=== PATIENT | female | born 1940 | race Caucasian/White ===

== ENCOUNTER 2021-02-17 11:44 | Emergency (ER) | payer MEDICARE, SELFPAY ==
--- NOTE | ~2021-02-17 | XR_ITS ---
EXAMINATION: XR CHEST CLINICAL INFORMATION: Shortness of breath. COMPARISON: Chest radiograph dated 03/20/2020 TECHNIQUE: Frontal view of the chest was obtained. FINDINGS: Minimal left basilar atelectasis versus early infiltrates. No pleural effusion or pneumothorax. Stable cardiomediastinal silhouette. Dextrocurvature of the thoracic spine is redemonstrated. XR/XR chest 1V IMPRESSION: Minimal left basilar atelectasis versus early infiltrates, new when compared to the prior examination.
--- NOTE | 2021-02-17 11:55 | ECG_ITS ---
Test Reason : CHEST PAIN Blood Pressure : / mmHG Vent. Rate : 099 BPM Atrial Rate : 099 BPM P-R Int : 162 ms QRS Dur : 082 ms QT Int : 320 ms P-R-T Axes : 072 081 056 degrees QTc Int : 410 ms Normal sinus rhythm Normal ECG When compared with ECG of 11-AUG-2019 12:05, No significant change was found Referred By: Fortunato Ramos Electronically Signed By:RAFAT VÁSQUEZ
[2021-02-17 12:02] VITALS: BP 158/67; PULSE 104; RESP 20; TEMP 36.9; O2SAT 96; BMI 28.7
--- NOTE | 2021-02-17 12:25 | ED.SOB ---
HPI - SOB/Dyspnea General Chief Complaint: Dyspnea Stated Complaint: chest pain sob Time Seen by Provider: 02/17/21 12:25 Source: patient and family Mode of arrival: ambulatory Limitations: no limitations History of Present Illness HPI Narrative: Patient ex-smoker with history of COPD anxiety on home oxygen p.r.n. basis been complaining of increased shortness of breath with cough with mucopurulent phlegm often for last few days, no fever no chills also patient noticed leg edema for last few weeks patient used to be on furosemide as needed in the past but not anymore Related Data Previous Rx's Medication Instructions Recorded albuterol sulfate 90 mcg/actuation 2 puff INHALATION Q4-6H PRN #8.5 g 02/17/21 aerosol inhaler (ProAir HFA) codeine 10 mg-guaifenesin 100 mg/5 10 ml PO Q6H PRN #237 ml 02/17/21 mL oral liquid doxycycline hyclate 100 mg tablet 100 mg PO BID #20 tab 02/17/21 furosemide 20 mg tablet (Lasix) 20 mg PO QAM #30 tab 02/17/21 prednisone 20 mg tablet 40 mg PO DAILY #10 tab 02/17/21 Allergies Allergy/AdvReac Type Severity Reaction Status Date / Time No Known Allergies Allergy Verified 02/17/21 12:44 Review of Systems Review of Systems: Constitutional : No Weight loss, No Fever, No Chills ENT/Mouth : No sore throat, No Rhinorrhea Eyes: No Eye Pain, No Swelling Cardiovascular : No Chest Pain, no palpitations Respiratory :+ Cough, + Sputum, + shortness of breath Gastrointestinal : no Nausea, No Vomiting, No Diarrhea, No abdominal Pain, no black stools Genitourinary : No Dysuria, No Urinary Frequency Musculoskeletal : No joint pain, No Myalgias, No Joint Swelling Skin : No Skin Lesions, No rash Neuro : No Weakness, No Numbness, No Dizziness, No Headache Psych : No Anxiety/Panic, No Depression Heme/Lymph: No Bruising, No Lymphadenopathy Endocrine : No Polyuria, No Polydipsia All other systems reviewed and are negative [facility] Social History Social History Advance Directives: No Advance Directives Information Provided: No Physical Exam Vital Signs: Vital Signs: Last Vital Signs Temp 98.4 F 02/17/21 12:02 Pulse 99 02/17/21 14:59 Resp 36 H 02/17/21 14:59 BP 135/54 L 02/17/21 14:59 Pulse Ox 92 02/17/21 14:59 Oxygen Flow Rate 2 02/17/21 12:02 Body Mass Index 28.7 Appearance: Alert. Oriented X3. No acute distress. Eyes: PERRLA, No Nystagmus ENT: Pharynx normal. Oral Mucosa moist Neck: Normal inspection. Neck supple. CVS: Normal heart rate and rhythm. Pulses normal. Respiratory: No respiratory distress. Equal air entry bilateral, prolonged expiration, bilateral fine crackles at the bases Abdomen: Soft and nontender. Bowel sounds are present, no mass palpable, no CVA tenderness Skin: Skin warm and dry. Normal skin color. Normal skin turgor. Extremities: 2+ lower extremity edema. No calf tenderness Neuro: Oriented X 3. No motor deficit. No sensory deficit.No cerebellar signs , cranial nerves II-XII intact MDM - SOB/Dyspnea MDM Narrative Medical decision making narrative: Patient has COPD with increased shortness of breath with leg edema with fine crackles at the base lab workup showed elevated BNP likely diastolic heart failure. Will start patient on low-dose of Lasix advised to follow with PCP Medical Records Attestation: I reviewed the patient's medical records. Lab Data Attestation: I reviewed the patient's lab results. Result diagrams: 02/17/21 13:18 02/17/21 13:18 Labs: Lab Results 02/17/21 02/17/21 02/17/21 Range/Units 13:18 13:18 13:18 WBC 9.9 (4.8-10.8) X10*3/uL RBC 3.93 L (4.20-5.50) X10*6/uL Hgb 11.9 L (12.0-16.0) g/dl Hct 37.6 (37-47) % MCV 95.7 (80-98) fL MCH 30.3 (27.0-33.0) pg MCHC 31.6 (31.0-35.0) g/dl RDW 13.7 (11.0-16.0) % Plt Count 307 (160-400) X10*3/uL MPV 9.9 (9.4-12.3) fL Immature Gran % (Auto) 0.4 (0.0-0.4) % Neut % (Auto) 79.1 H (45-73) % Lymph % (Auto) 9.4 L (20-40) % [place] % (Auto) 9.8 (2-11) % Eos % (Auto) 0.8 (0-4) % Baso % (Auto) 0.5 (0-2) % Lymph # (Auto) 0.9 L (1.2-4.9) X10*3/uL [place] # (Auto) 1.0 (0.1-1.2) X10*3/uL Eos # (Auto) 0.1 (0.0-0.4) X10*3/uL Baso # (Auto) 0.1 (0.0-0.2) X10*3/uL Abs Immat Gran (auto) 0.04 H (0.00-0.03) X10*3/uL Absolute Neuts (auto) 7.9 (2.0-8.3) X10*3/uL Absolute Nucleated RBC 0.000 (0.0-0.012) X10*3/uL Nucleated RBC % (auto) 0.0 (0.0-0.2) /100WBC Sodium 137 (135-145) mmol/L Potassium 3.9 (3.3-5.1) mmol/L Chloride 100 (96-108) mmol/L Carbon Dioxide 31 H (22-29) mmol/L Anion Gap 10 L (12-20) BUN 8 L (9-16) mg/dL Creatinine 0.59 (0.5-1.4) mg/dL Estim Creat Clear Calc 75.4 Estimated GFR > 60 Random Glucose 129 H (60-115) mg/dL Calcium 8.4 (8.4-10.2) mg/dL Total Bilirubin 0.5 (0.0-1.0) mg/dL Direct Bilirubin 0.2 (0.0-0.5) mg/dL AST 17 (5-31) U/L ALT 17 (0-31) U/L Alkaline Phosphatase 74 (39-117) U/L Troponin I High Sens 15.0 (<3.5-17.0) ng/L B-Natriuretic Peptide 236 H (<100) pg/mL Total Protein 6.9 (6.5-8.0) g/dL Albumin 3.6 (3.5-5.0) g/dL ECG Data Attestation: I personally reviewed and interpreted this ECG as follows: Interpretation: Normal sinus rhythm heart rate 99 beats per minute normal intervals normal axis no acute ST wave changes impression normal EKG Discharge Plan Discharge Clinical Impression: Acute exacerbation of chronic obstructive airways disease Congestive heart failure Qualifiers: Heart failure type: diastolic Heart failure chronicity: unspecified Qualified Code(s): I50.30 - Unspecified diastolic (congestive) heart failure Patient Disposition: Home, Self-Care Instructions: Heart Failure (ED), COPD (Chronic Obstructive Pulmonary Disease) (ED) Additional Instructions: Continue your inhaler Take water pill / Lasix as prescribed Take antibiotics as prescribed Follow with PCP next week for further workup Prescriptions: New furosemide [Lasix] 20 mg tablet 20 mg PO QAM Qty: 30 RF: 0 prednisone 20 mg tablet 40 mg PO DAILY Qty: 10 RF: 0 codeine-guaifenesin 10-100 mg/5 mL liquid 10 ml PO Q6H PRN (Reason: cough) Qty: 237 RF: 0 doxycycline hyclate 100 mg tablet 100 mg PO BID Qty: 20 RF: 0 albuterol sulfate [ProAir HFA] 90 mcg/actuation HFA aerosol inhaler 2 puff inhalation Q4-6H PRN (Reason: shortness of breath or wheezing) Qty: 8.5 RF: 0
[2021-02-17] MEDS: Albuterol/Iprat 2.5/0.5MG 3 ML AMPUL.NEB INHALE (13:00)
[2021-02-17 13:03] VITALS: PULSE 93; O2SAT 92
[2021-02-17] MEDS: guaiFEN/Codeine SF 200/20/10ML 10 ML LIQUID PO (13:19)
[2021-02-17 13:29] LABS: MANUAL DIFF FLAG NO
[2021-02-17 13:35] LABS: Basophils Absolute Auto 0.1 X10*3/uL (0.0-0.2); Basophils Percent Auto 0.5 % (0-2); Eosinophils Absolute Auto 0.1 X10*3/uL (0.0-0.4); Eosinophils Percent Auto 0.8 % (0-4); Hematocrit 37.6 % (37-47); Hemoglobin 11.9 g/dl (12.0-16.0); Imm Gran Abs Auto 0.04 X10*3/uL (0.00-0.03); Imm Gran Pct Auto 0.4 % (0.0-0.4); Lymphocytes Absolute Auto 0.9 X10*3/uL (1.2-4.9); Lymphocytes Percent Auto 9.4 % (20-40); Mean Corpuscular HGB Conc 31.6 g/dl (31.0-35.0); Mean Corpuscular Hemoglobin 30.3 pg (27.0-33.0); Mean Corpuscular Volume 95.7 fL (80-98); Mean Platelet Volume 9.9 fL (9.4-12.3); Monocytes Percent Auto 9.8 % (2-11); Neutrophils Absolute Auto 7.9 X10*3/uL (2.0-8.3); Neutrophils Percent Auto 79.1 % (45-73); Platelet Count 307 X10*3/uL (160-400); Red Blood Count 3.93 X10*6/uL (4.20-5.50); Red Cell Distribution Width 13.7 % (11.0-16.0); White Blood Count 9.9 X10*3/uL (4.8-10.8)
[2021-02-17 13:57] LABS: Alanine Aminotransferase 17 U/L (0-31); Albumin Level 3.6 g/dL (3.5-5.0); Alkaline Phosphatase 74 U/L (39-117); Anion Gap 10 (12-20); Aspartate Amino Transferase 17 U/L (5-31); Bilirubin Direct 0.2 mg/dL (0.0-0.5); Bilirubin Total 0.5 mg/dL (0.0-1.0); Blood Urea Nitrogen 8 mg/dL (9-16); Calcium 8.4 mg/dL (8.4-10.2); Carbon Dioxide 31 mmol/L (22-29); Chloride 100 mmol/L (96-108); Creatinine Clr Calc Pharmacy 75.4; Estimated Glomerular Filt Rate > 60; Glucose Random 129 mg/dL (60-115); Potassium 3.9 mmol/L (3.3-5.1); Sodium 137 mmol/L (135-145); Total Protein 6.9 g/dL (6.5-8.0)
[2021-02-17 14:02] LABS: B Type Natriuretic Peptide 236 pg/mL (<100)
[2021-02-17] MEDS: Furosemide 20 MG/2 ML VIAL IVPUSH (14:56)
[2021-02-17 14:59] VITALS: BP 135/54; PULSE 99; RESP 36; O2SAT 92
[2021-02-17 15:38] LABS: COVID-19 Test Negative (Negative)
== END 2021-02-17 16:29 | disposition home or self-care (01) ==
PROVIDERS: Emergency Provider Internal Medicine; PCP Internal Medicine
DX: I50.30 Unspecified diastolic (congestive) heart failure (principal); J44.1 Chronic obstructive pulmonary disease with (acute) exacerbation; R06.02 Shortness of breath; R60.0 Localized edema; Z20.822 Contact with and (suspected) exposure to COVID-19
CPT/HCPCS: 36415; 71045; 80048; 80076; 83880; 84484; 85025; 87635; 93005; 94640; 96374; 99284; J1940

== ENCOUNTER → 2021-03-07 14:22 | Outpatient (BNVA) | payer MEDICARE, SELFPAY | PROVIDERS: PCP Internal Medicine; Visit Provider Hospitalist | DX: J43.2 Centrilobular emphysema (principal); J96.11 Chronic respiratory failure with hypoxia; J18.9 Pneumonia, unspecified organism | CPT/HCPCS: 99212 ==

== ENCOUNTER 2021-03-31 12:51 | Outpatient (REF) | payer MEDICARE, MEDICAID, SELFPAY ==
--- NOTE | ~2021-03-31 | XR_ITS ---
EXAMINATION: XR CHEST CLINICAL INFORMATION: Pneumonia COMPARISON: 02/17/2021 TECHNIQUE: 2 views of the chest were obtained. FINDINGS: Thoracolumbar scoliosis is present. Heart size normal. No evidence of CHF. Previously seen patchy density at the left lung base has resolved. Currently, no infiltrates, effusions or lung masses are seen. Old right-sided rib fractures are present. XR/XR chest 2V IMPRESSION: Previously seen left lower lobe infiltrate has resolved.
== END 2021-03-31 12:52 | disposition home or self-care (01) ==
LOC: HO.XRAY 12:51
PROVIDERS: PCP Internal Medicine; Visit Provider Hospitalist
DX: J18.9 Pneumonia, unspecified organism (principal)
CPT/HCPCS: 71046

== ENCOUNTER → 2021-04-22 13:55 | Outpatient (BNVA) | payer MEDICARE, MEDICAID, SELFPAY | PROVIDERS: PCP Internal Medicine; Visit Provider Hospitalist | DX: J18.9 Pneumonia, unspecified organism (principal); J43.2 Centrilobular emphysema; J96.11 Chronic respiratory failure with hypoxia | CPT/HCPCS: 99212 ==

== ENCOUNTER → 2021-09-19 14:18 | Outpatient (BNVA) | payer MEDICARE, MEDICAID, SELFPAY | PROVIDERS: PCP Internal Medicine; Visit Provider Hospitalist | DX: J43.2 Centrilobular emphysema (principal); J96.11 Chronic respiratory failure with hypoxia | CPT/HCPCS: 99212 ==

== ENCOUNTER → 2021-11-27 15:03 | Outpatient (BNVA) | payer MEDICARE, MEDICAID, SELFPAY | PROVIDERS: PCP Internal Medicine; Visit Provider Hospitalist | DX: J43.2 Centrilobular emphysema (principal); J96.11 Chronic respiratory failure with hypoxia | CPT/HCPCS: 94618; 99212 ==

== ENCOUNTER 2022-05-15 14:43 | Outpatient (REF) | payer MEDICARE, MEDICAID, SELFPAY ==
--- NOTE | 2022-05-15 16:32 | PFT_ITS ---
Forced vital capacity 46%, FEV1 34%, FEV1 over FVC ratio 56. VBG19-61 is 20% and MVV is 33. Post bronchodilator therapy, there is no significant change. Total lung capacity is 84%. Residual volume 107%. Diffusion capacity 44%. CONCLUSION: Very severe obstructive airway disorder. No significant response to bronchodilator therapy. Clinical correlation is recommended. MD LEONA Alvarenga/MODL / [id number]
== END 2022-05-15 14:44 | disposition home or self-care (01) ==
LOC: HO.RESP 14:43
PROVIDERS: PCP Internal Medicine; Visit Provider Hospitalist
DX: J43.2 Centrilobular emphysema (principal)
CPT/HCPCS: 94060; 94727; 94729

== ENCOUNTER → 2022-05-19 15:28 | Outpatient (BNVA) | payer MEDICARE, MEDICAID, SELFPAY | PROVIDERS: PCP Internal Medicine; Visit Provider Hospitalist | DX: J43.2 Centrilobular emphysema (principal); J96.11 Chronic respiratory failure with hypoxia | CPT/HCPCS: 99212 ==

== ENCOUNTER 2022-07-06 13:31 | Inpatient (IN) | payer MEDICARE, MEDICAID, SELFPAY ==
--- NOTE | ~2022-07-06 | XR_ITS ---
EXAMINATION: XR CHEST CLINICAL INFORMATION: Coughing congestion COMPARISON: March 31, 2021 and studies dating back to March 20, 2020 TECHNIQUE: 2 views of the chest were obtained. FINDINGS: There are diffuse chronic regions of interstitial disease and reticulation most prominent in the left lower lung. There appears to be some slightly increased density at the left base with the appearance of acute on chronic disease. No definite significant confluent parenchymal disease identified. Heart normal size. No evidence of pulmonary edema. No pneumothorax or pleural effusion. Multiple old healed right rib fractures. XR/XR chest 2V IMPRESSION: Chronic interstitial lung disease with what appears to be some superimposed acute disease at the left base.
--- NOTE | ~2022-07-06 | XR_ITS ---
EXAMINATION: XR CHEST CLINICAL INFORMATION: Follow-up, coughing, shortness of breath COMPARISON: Chest radiograph 07/06/2022 TECHNIQUE: Frontal view of the chest was obtained. FINDINGS: Chronic changes of the lungs are again noted. There is a small amount probable bibasilar atelectasis and possible trace pleural fluid. Cardiomediastinal contours are unchanged. Structures of the chest wall are unchanged. XR/XR chest 1V IMPRESSION: Probable small amount of bibasilar atelectasis and pleural fluid.
--- NOTE | 2022-07-06 15:32 | ED.SOB ---
HPI - SOB/Dyspnea General Chief Complaint: Dyspnea <LINO Hussein - Last Filed: 07/06/22 15:38> Stated Complaint: diff breathing cough <LINO Hussein - Last Filed: 07/06/22 15:38> Time Seen by Provider: 07/06/22 18:16 <LINO Hussein - Last Filed: 07/06/22 15:38> Source: patient <Fortunato Ramos MD - Last Filed: 07/07/22 01:46> Mode of arrival: ambulatory <Fortunato Ramos MD - Last Filed: 07/07/22 01:46> Limitations: no limitations <Fortunato Ramos MD - Last Filed: 07/07/22 01:46> History of Present Illness HPI Narrative: 81-year-old female presenting to the ER with complaints of URI complaints for approximately 1 week worse today. She was seen at [facility] and told that she had Adenovirus and conronvirus and copd. Was sent home with a Z-Jarvis, prednisone and Robitussin with codeine although reports her symptoms are worsening especially the cough. She is currently on 2 L of nasal cannula oxygen chronically at home. Patient has history of COPD with chronic hypoxia on 2 L of oxygen at home with frequent hospitalization for flare up this time patient has been sick for last 1 week diagnosed with adenovirus at [facility] COVID influenza is negative treated with azithromycin prednisone and Hycodan cough syrup patient is still feeling sick coughing a lot with mucopurulent of a duration unable to speak full sentences still having fever saturating 93% on 2 L oxygen patient received 10 mg of albuterol on arrival , magnesium sulfate and Solu-Medrol in triage. 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 No chest pain no leg edema <Fortunato Ramos MD - Last Filed: 07/07/22 01:46> Related Data Home Medications: Home Medications Medication Instructions Recorded Confirmed albuterol sulfate 2.5 mg/3 mL 2.5 mg inhalation Q4-6H PRN 03/07/21 07/06/22 (0.083 %) solution for nebulization Wheezing famotidine 20 mg tablet 20 mg PO DAILY@0800 03/07/21 07/06/22 pravastatin 40 mg tablet 40 mg PO DAILY@199903/07/21 07/06/22 ropinirole 0.25 mg tablet 0.25 mg PO DAILY@199903/07/21 07/06/22 ascorbic acid (vitamin C) 500 mg 500 mg PO DAILY@0809/19/21 07/06/22 capsule calcium citrate 600 mg PO BID@0800,199909/19/21 07/06/22 citalopram 10 mg tablet 20 mg PO DAILY@0809/19/21 07/06/22 docusate sodium 100 mg capsule 100 mg PO DAILY 09/19/21 07/06/22 (Colace) turmeric root extract 500 mg 500 mg PO DAILY@0809/19/21 07/06/22 capsule lisinopril 10 mg tablet 10 mg PO DAILY@79905/19/22 07/06/22 furosemide 20 mg tablet (Lasix) 20 mg PO DAILY@199907/06/22 07/06/22 gabapentin 300 mg capsule 300 mg PO DAILY@199907/06/22 07/06/22 guaifenesin 400 mg tablet 400 mg PO DAILY@79907/06/22 07/06/22 loratadine 10 mg tablet 10 mg PO DAILY@79907/06/22 07/06/22 montelukast 10 mg tablet 10 mg PO DAILY@79907/06/22 07/06/22 Previous Rx's Medication Instructions Recorded albuterol sulfate 90 mcg/actuation 2 puff inhalation Q4-6H PRN 02/17/21 aerosol inhaler (ProAir HFA) shortness of breath or wheezing #8.5 grams fluticasone propionate 50 2 spray intranasal DAILY 30 days 04/22/21 mcg/actuation nasal #15.8 mL spray,suspension fluticasone 250 mcg-salmeterol 50 1 ea inhalation BID 30 days #60 ea 11/27/21 mcg/dose blistr powdr for inhalation (Kirstiextolu Inhub) tiotropium bromide 18 mcg capsule 1 cap inhalation DAILY 30 days #30 11/27/21 with inhalation device (Spiriva inhalations with HandiHaler) <LINO Hussein - Last Filed: 07/06/22 15:38> Allergies/Adverse Reactions: Allergies Allergy/AdvReac Type Severity Reaction Status Date / Time No Known Allergies Allergy Verified 05/19/22 15:38 <LINO Hussein - Last Filed: 07/06/22 15:38> Review of Systems Review of Systems: Yes all other systems are reviewed and are negative <Fortunato Ramos MD - Last Filed: 07/07/22 01:46> [facility] Past Medical History Medical History: Medical History (Updated 07/07/22 @ 01:45 by Fortunato Ramos MD) Chronic respiratory failure COPD (chronic obstructive pulmonary disease) Pneumonia <LINO Hussein - Last Filed: 07/06/22 15:38> Social History Social History: Social History (Updated 03/07/21 @ 14:37 by WENDY Mosqueda) Alcohol intake: never Patient Tobacco Use Status: Never used Tobacco Smoked in Last 30 Days: No Use of substances other than those prescribed or required for medical reasons: No Advance Directives: No Advance Directives Information Provided: No <LINO Hussein - Last Filed: 07/06/22 15:38> Physical Exam Vital Signs: Vital Signs: Last Vital Signs Temp 98.6 F 07/07/22 00:07 Pulse 85 07/07/22 00:07 Resp 26 H 07/07/22 00:07 BP 130/58 L 07/07/22 00:07 Pulse Ox 95 07/07/22 00:07 O2 Del Method 07/07/22 00:07 O2 Flow Rate 3 07/07/22 00:07 Oxygen Flow Rate 2 07/06/22 15:35 BMI result Body Mass Index 29.9 <LINO Hussein - Last Filed: 07/06/22 15:38> Vital Signs: Last Vital Signs Temp 98.6 F 07/07/22 00:07 Pulse 85 07/07/22 00:07 Resp 26 H 07/07/22 00:07 BP 130/58 L 07/07/22 00:07 Pulse Ox 95 07/07/22 00:07 O2 Del Method 07/07/22 00:07 O2 Flow Rate 3 07/07/22 00:07 Oxygen Flow Rate 2 07/06/22 15:35 BMI result Body Mass Index 29.9 <Fortunato Ramos MD - Last Filed: 07/07/22 01:46> Appearance: Alert. Oriented X3. Frequently coughing unable to speak full sentences Eyes: PERRLA, No Nystagmus ENT: Pharynx normal. Oral Mucosa moist Neck: Normal inspection. Neck supple. CVS: Tachycardic irregularly irregular no murmur rub or gallop Respiratory: Moderate respiratory distress. Equal air entry bilateral, bilateral wheezing and conducted sounds Abdomen: Soft and nontender. Bowel sounds are present, no mass palpable, no CVA tenderness Skin: Skin warm and dry. Normal skin color. Normal skin turgor. Extremities: No lower extremity edema. No calf tenderness Neuro: Oriented X 3. No motor deficit. No sensory deficit.No cerebellar signs , cranial nerves II-XII intact <Fortunato Ramos MD - Last Filed: 07/07/22 01:46> Course Course Course Narrative: RME-15:37pm 81-year-old female presenting to the ER with complaints of URI complaints for approximately 1 week worse today. She was seen at [facility] and told that she had Adenovirus and conronvirus and copd. Was sent home with a Z-Jarvis, prednisone and Robitussin with codeine although reports her symptoms are worsening especially the cough. She is currently on 2 L of nasal cannula oxygen chronically at home. Plan: Labs, EKG, chest x-ray, blood cultures and lactic acid ordered at this time. Patient will be sent back to the waiting room to be evaluated in the ED. <LINO Hussein - Last Filed: 07/06/22 15:38> Medications Administered Generic Name Dose Route Start Last Admin Trade Name Freq PRN Reason Stop Dose Admin Azithromycin 500 mg 07/06/22 23:45 07/07/22 00:13 Azithromycin 500 Mg Tablet PO 500 mg BEDTIME SHALA Administration Enoxaparin Sodium 40 mg 07/06/22 23:45 07/07/22 00:13 Enoxaparin Sodium 40 Mg/0.4 Ml Syringe SUBCUT 40 mg BEDTIME SHALA Administration Sodium Chloride 3 ml 07/07/22 00:00 07/07/22 00:17 0.9 % Sodium Chloride Flush 3 Ml Syringe IVFLUSH 3 ml QSHIFT SHALA Administration Discontinued Medications Generic Name Dose Route Start Last Admin Trade Name Freq PRN Reason Stop Dose Admin Albuterol Sulfate 7.5 mg/ 10 mg 07/06/22 15:38 07/06/22 18:20 Albuterol Sulfate 2.5 mg INHALE 07/06/22 15:39 10 mg ONCE ONE Administration Aspirin 81 mg 07/06/22 19:41 07/06/22 20:16 Aspirin Enteric Coated 81 Mg Tablet.Dr PO 07/06/22 19:42 81 mg ONCE ONE Administration Magnesium Sulfate 2 gm in 50 mls @ 25 mls/hr 07/06/22 15:38 07/06/22 20:26 Magnesium Sulfate/H2o IV 07/06/22 17:37 Infused ONCE ONE Infusion Ceftriaxone Sodium 1 gm/ 50 mls @ 100 mls/hr 07/06/22 19:32 07/06/22 20:46 Sodium Chloride IV 07/06/22 20:01 Infused ONCE ONE Infusion Methylprednisolone Sodium Succinate 125 mg 07/06/22 15:38 07/06/22 18:26 Methylprednisolone Sod Succ 125 Mg/2 Ml Vial IVPUSH 07/06/22 15:39 125 mg ONCE ONE Administration Metoprolol Tartrate 5 mg 07/06/22 18:46 07/06/22 18:58 Metoprolol Tartrate 5 Mg/5 Ml Vial IVPUSH 07/06/22 18:47 5 mg ONCE ONE Administration <LINO Hussein - Last Filed: 07/06/22 15:38> Medications Administered Generic Name Dose Route Start Last Admin Trade Name Freq PRN Reason Stop Dose Admin Azithromycin 500 mg 07/06/22 23:45 07/07/22 00:13 Azithromycin 500 Mg Tablet PO 500 mg BEDTIME SHALA Administration Enoxaparin Sodium 40 mg 07/06/22 23:45 07/07/22 00:13 Enoxaparin Sodium 40 Mg/0.4 Ml Syringe SUBCUT 40 mg BEDTIME SHALA Administration Sodium Chloride 3 ml 07/07/22 00:00 07/07/22 00:17 0.9 % Sodium Chloride Flush 3 Ml Syringe IVFLUSH 3 ml QSHIFT SHALA Administration Discontinued Medications Generic Name Dose Route Start Last Admin Trade Name Freq PRN Reason Stop Dose Admin Albuterol Sulfate 7.5 mg/ 10 mg 07/06/22 15:38 07/06/22 18:20 Albuterol Sulfate 2.5 mg INHALE 07/06/22 15:39 10 mg ONCE ONE Administration Aspirin 81 mg 07/06/22 19:41 07/06/22 20:16 Aspirin Enteric Coated 81 Mg Tablet. PO 07/06/22 19:42 81 mg ONCE ONE Administration Magnesium Sulfate 2 gm in 50 mls @ 25 mls/hr 07/06/22 15:38 07/06/22 20:26 Magnesium Sulfate/H2o IV 07/06/22 17:37 Infused ONCE ONE Infusion Ceftriaxone Sodium 1 gm/ 50 mls @ 100 mls/hr 07/06/22 19:32 07/06/22 20:46 Sodium Chloride IV 07/06/22 20:01 Infused ONCE ONE Infusion Methylprednisolone Sodium Succinate 125 mg 07/06/22 15:38 07/06/22 18:26 Methylprednisolone Sod Succ 125 Mg/2 Ml Vial IVPUSH 07/06/22 15:39 125 mg ONCE ONE Administration Metoprolol Tartrate 5 mg 07/06/22 18:46 07/06/22 18:58 Metoprolol Tartrate 5 Mg/5 Ml Vial IVPUSH 07/06/22 18:47 5 mg ONCE ONE Administration <Fortunato Ramos MD - Last Filed: 07/07/22 01:46> Medical Decision Making Medical Decision Making MDM Narrative: Patient with severe COPD with adenovirus infection with increased shortness of breath cardiac monitoring shows AFib with fast ventricular rate which improved after IV Lopressor now is normal sinus rhythm <Fortunato Ramos MD - Last Filed: 07/07/22 01:46> Consult Healthcare Provider Management of the patient was discussed with: Hospitalist <Fortunato Ramos MD - Last Filed: 07/07/22 01:46> Lab Data MDM Lab Attestation statement: I reviewed the patient's lab results. <Fortunato Ramos MD - Last Filed: 07/07/22 01:46> Result Diagrams: : 07/06/22 15:56 07/06/22 15:56 <LINO Hussein - Last Filed: 07/06/22 15:38> Labs: Lab Results 07/06/22 07/06/22 07/06/22 Range/Units 15:56 15:56 15:56 WBC 6.8 (4.8-10.8) X10*3/uL RBC 4.32 (4.20-5.50) X10*6/uL Hgb 12.5 (12.0-16.0) g/dl Hct 39.5 (37.0-47.0) % MCV 91.4 (80.0-98.0) fL MCH 28.9 (27.0-33.0) pg MCHC 31.6 (31.0-35.0) g/dl RDW 13.7 (11.0-16.0) % Plt Count 353 (160-400) X10*3/uL MPV 9.6 (9.4-12.3) fL Immature Gran % (Auto) 0.9 H (0.0-0.4) % Neut % (Auto) 87.5 H (45-73) % Lymph % (Auto) 8.3 L (20-40) % [place] % (Auto) 3.2 (2-11) % Eos % (Auto) 0.0 (0-4) % Baso % (Auto) 0.1 (0-2) % Lymph # (Auto) 0.6 L (1.2-4.9) X10*3/uL [place] # (Auto) 0.2 (0.1-1.2) X10*3/uL Eos # (Auto) 0.0 (0.0-0.4) X10*3/uL Baso # (Auto) 0.0 (0.0-0.2) X10*3/uL Abs Immat Gran (auto) 0.06 H (0.00-0.03) X10*3/uL Absolute Neuts (auto) 6.0 (2.0-8.3) x10*3/uL Absolute Nucleated RBC 0.000 (0.0-0.012) X10*3/uL Nucleated RBC % (auto) 0.0 (0.0-0.2) /100WBC Smear Tech's Comments VERIFIED PT 11.5 (10.0-13.1) SEC INR 1.0 (0.9-1.1) Sodium (135-145) mmol/L Potassium (3.3-5.1) mmol/L Chloride (96-108) mmol/L Carbon Dioxide (22-29) mmol/L Anion Gap (12-20) BUN (9-16) mg/dL Creatinine (0.5-1.4) mg/dL Estim Creat Clear Calc Estimated GFR Random Glucose (60-115) mg/dL Lactic Acid (0.5-2.0) mmol/L Lactic Acid F/U @ 2Hr (0.5-2.0) mmol/L Calcium (8.4-10.2) mg/dL Magnesium (1.6-2.6) mg/dL Total Bilirubin (0.0-1.0) mg/dL AST (5-31) U/L ALT (0-31) U/L Alkaline Phosphatase (39-117) U/L Total Protein (6.5-8.0) g/dL Albumin (3.5-5.0) g/dL Influenza Type A (PCR) NEGATIVE (Negative) Influenza Type B (PCR) NEGATIVE (Negative) RSV RNA Qual (PCR) NEGATIVE (Negative) SARS-CoV-2 RNA (RT-PCR) NEGATIVE (Negative) 07/06/22 07/06/22 07/06/22 Range/Units 15:56 15:56 18:21 WBC (4.8-10.8) X10*3/uL RBC (4.20-5.50) X10*6/uL Hgb (12.0-16.0) g/dl Hct (37.0-47.0) % MCV (80.0-98.0) fL MCH (27.0-33.0) pg MCHC (31.0-35.0) g/dl RDW (11.0-16.0) % Plt Count (160-400) X10*3/uL MPV (9.4-12.3) fL Immature Gran % (Auto) (0.0-0.4) % Neut % (Auto) (45-73) % Lymph % (Auto) (20-40) % [place] % (Auto) (2-11) % Eos % (Auto) (0-4) % Baso % (Auto) (0-2) % Lymph # (Auto) (1.2-4.9) X10*3/uL [place] # (Auto) (0.1-1.2) X10*3/uL Eos # (Auto) (0.0-0.4) X10*3/uL Baso # (Auto) (0.0-0.2) X10*3/uL Abs Immat Gran (auto) (0.00-0.03) X10*3/uL Absolute Neuts (auto) (2.0-8.3) x10*3/uL Absolute Nucleated RBC (0.0-0.012) X10*3/uL Nucleated RBC % (auto) (0.0-0.2) /100WBC Smear Tech's Comments PT (10.0-13.1) SEC INR (0.9-1.1) Sodium 133 L (135-145) mmol/L Potassium 4.6 (3.3-5.1) mmol/L Chloride 94 L (96-108) mmol/L Carbon Dioxide 30 H (22-29) mmol/L Anion Gap 14 (12-20) BUN 10 (9-16) mg/dL Creatinine 0.68 (0.5-1.4) mg/dL Estim Creat Clear Calc 63.3 Estimated GFR > 60 Random Glucose 305 H (60-115) mg/dL Lactic Acid 3.3 H* (0.5-2.0) mmol/L Lactic Acid F/U @ 2Hr 1.4 (0.5-2.0) mmol/L Calcium 9.0 D (8.4-10.2) mg/dL Magnesium 1.6 (1.6-2.6) mg/dL Total Bilirubin 0.2 (0.0-1.0) mg/dL AST 25 (5-31) U/L ALT 26 (0-31) U/L Alkaline Phosphatase 83 (39-117) U/L Total Protein 7.2 (6.5-8.0) g/dL Albumin 3.7 (3.5-5.0) g/dL Influenza Type A (PCR) (Negative) Influenza Type B (PCR) (Negative) RSV RNA Qual (PCR) (Negative) SARS-CoV-2 RNA (RT-PCR) (Negative) <LINO Hussein - Last Filed: 07/06/22 15:38> Lab Results 07/06/22 07/06/22 07/06/22 Range/Units 15:56 15:56 15:56 WBC 6.8 (4.8-10.8) X10*3/uL RBC 4.32 (4.20-5.50) X10*6/uL Hgb 12.5 (12.0-16.0) g/dl Hct 39.5 (37.0-47.0) % MCV 91.4 (80.0-98.0) fL MCH 28.9 (27.0-33.0) pg MCHC 31.6 (31.0-35.0) g/dl RDW 13.7 (11.0-16.0) % Plt Count 353 (160-400) X10*3/uL MPV 9.6 (9.4-12.3) fL Immature Gran % (Auto) 0.9 H (0.0-0.4) % Neut % (Auto) 87.5 H (45-73) % Lymph % (Auto) 8.3 L (20-40) % [place] % (Auto) 3.2 (2-11) % Eos % (Auto) 0.0 (0-4) % Baso % (Auto) 0.1 (0-2) % Lymph # (Auto) 0.6 L (1.2-4.9) X10*3/uL [place] # (Auto) 0.2 (0.1-1.2) X10*3/uL Eos # (Auto) 0.0 (0.0-0.4) X10*3/uL Baso # (Auto) 0.0 (0.0-0.2) X10*3/uL Abs Immat Gran (auto) 0.06 H (0.00-0.03) X10*3/uL Absolute Neuts (auto) 6.0 (2.0-8.3) x10*3/uL Absolute Nucleated RBC 0.000 (0.0-0.012) X10*3/uL Nucleated RBC % (auto) 0.0 (0.0-0.2) /100WBC Smear Tech's Comments VERIFIED PT 11.5 (10.0-13.1) SEC INR 1.0 (0.9-1.1) Sodium (135-145) mmol/L Potassium (3.3-5.1) mmol/L Chloride (96-108) mmol/L Carbon Dioxide (22-29) mmol/L Anion Gap (12-20) BUN (9-16) mg/dL Creatinine (0.5-1.4) mg/dL Estim Creat Clear Calc Estimated GFR Random Glucose (60-115) mg/dL Lactic Acid (0.5-2.0) mmol/L Lactic Acid F/U @ 2Hr (0.5-2.0) mmol/L Calcium (8.4-10.2) mg/dL Magnesium (1.6-2.6) mg/dL Total Bilirubin (0.0-1.0) mg/dL AST (5-31) U/L ALT (0-31) U/L Alkaline Phosphatase (39-117) U/L Total Protein (6.5-8.0) g/dL Albumin (3.5-5.0) g/dL Influenza Type A (PCR) NEGATIVE (Negative) Influenza Type B (PCR) NEGATIVE (Negative) RSV RNA Qual (PCR) NEGATIVE (Negative) SARS-CoV-2 RNA (RT-PCR) NEGATIVE (Negative) 07/06/22 07/06/22 07/06/22 Range/Units 15:56 15:56 18:21 WBC (4.8-10.8) X10*3/uL RBC (4.20-5.50) X10*6/uL Hgb (12.0-16.0) g/dl Hct (37.0-47.0) % MCV (80.0-98.0) fL MCH (27.0-33.0) pg MCHC (31.0-35.0) g/dl RDW (11.0-16.0) % Plt Count (160-400) X10*3/uL MPV (9.4-12.3) fL Immature Gran % (Auto) (0.0-0.4) % Neut % (Auto) (45-73) % Lymph % (Auto) (20-40) % [place] % (Auto) (2-11) % Eos % (Auto) (0-4) % Baso % (Auto) (0-2) % Lymph # (Auto) (1.2-4.9) X10*3/uL [place] # (Auto) (0.1-1.2) X10*3/uL Eos # (Auto) (0.0-0.4) X10*3/uL Baso # (Auto) (0.0-0.2) X10*3/uL Abs Immat Gran (auto) (0.00-0.03) X10*3/uL Absolute Neuts (auto) (2.0-8.3) x10*3/uL Absolute Nucleated RBC (0.0-0.012) X10*3/uL Nucleated RBC % (auto) (0.0-0.2) /100WBC Smear Tech's Comments PT (10.0-13.1) SEC INR (0.9-1.1) Sodium 133 L (135-145) mmol/L Potassium 4.6 (3.3-5.1) mmol/L Chloride 94 L (96-108) mmol/L Carbon Dioxide 30 H (22-29) mmol/L Anion Gap 14 (12-20) BUN 10 (9-16) mg/dL Creatinine 0.68 (0.5-1.4) mg/dL Estim Creat Clear Calc 63.3 Estimated GFR > 60 Random Glucose 305 H (60-115) mg/dL Lactic Acid 3.3 H* (0.5-2.0) mmol/L Lactic Acid F/U @ 2Hr 1.4 (0.5-2.0) mmol/L Calcium 9.0 D (8.4-10.2) mg/dL Magnesium 1.6 (1.6-2.6) mg/dL Total Bilirubin 0.2 (0.0-1.0) mg/dL AST 25 (5-31) U/L ALT 26 (0-31) U/L Alkaline Phosphatase 83 (39-117) U/L Total Protein 7.2 (6.5-8.0) g/dL Albumin 3.7 (3.5-5.0) g/dL Influenza Type A (PCR) (Negative) Influenza Type B (PCR) (Negative) RSV RNA Qual (PCR) (Negative) SARS-CoV-2 RNA (RT-PCR) (Negative) <Fortunato Ramos MD - Last Filed: 07/07/22 01:46> Independent Interpretation I performed an independent interpretation of an: EKG <Fortunato Ramos MD - Last Filed: 07/07/22 01:46> Interpretation: Normal sinus rhythm heart rate 95 beats per minute normal intervals normal axis occasional PACs no acute ST wave changes no acute ischemia Repeat EKG done at 1847 showed atrial fibrillation with rapid ventricular rate of 153 beats per minute no acute ST T wave changes no acute ischemia <Fortunato Ramos MD - Last Filed: 07/07/22 01:46> Discharge Plan Discharge Clinical Impression: Acute exacerbation of chronic obstructive airways disease, Atrial fibrillation with RVR, Adenoviral bronchitis <LINO Hussein - Last Filed: 07/06/22 15:38> Patient Disposition: Admitted As Inpatient <LINO Hussein - Last Filed: 07/06/22 15:38>
[2022-07-06 15:35] VITALS: BP 145/58; PULSE 95; RESP 16; TEMP 36.9; O2SAT 97; BMI 29.9
--- NOTE | 2022-07-06 15:37 | ECG_ITS ---
Test Reason : TACHY Blood Pressure : / mmHG Vent. Rate : 153 BPM Atrial Rate : 000 BPM P-R Int : 000 ms QRS Dur : 074 ms QT Int : 266 ms P-R-T Axes : 000 074 043 degrees QTc Int : 424 ms Atrial fibrillation with rapid ventricular response Nonspecific ST and T wave abnormality Abnormal ECG When compared with ECG of 17-FEB-2021 12:13, Atrial fibrillation has replaced Sinus rhythm Vent. rate has increased BY [address] now depressed in Lateral leads Referred By: Fortunato Ramos Electronically Signed By:OCTAVIANO JOHNSON
[2022-07-06 16:06] LABS: Basophils Percent Auto 0.1 % (0-2); Imm Gran Abs Auto 0.06 X10*3/uL (0.00-0.03); Imm Gran Pct Auto 0.9 % (0.0-0.4); Lymphocytes Absolute Auto 0.6 X10*3/uL (1.2-4.9); MANUAL DIFF FLAG SCAN; SCAN SMEAR FLAG 1
[2022-07-06 16:12] LABS: Hematocrit 39.5 % (37.0-47.0); Hemoglobin 12.5 g/dl (12.0-16.0); Lymphocytes Percent Auto 8.3 % (20-40); Mean Corpuscular HGB Conc 31.6 g/dl (31.0-35.0); Mean Corpuscular Hemoglobin 28.9 pg (27.0-33.0); Mean Corpuscular Volume 91.4 fL (80.0-98.0); Mean Platelet Volume 9.6 fL (9.4-12.3); Monocytes Absolute Auto 0.2 X10*3/uL (0.1-1.2); Monocytes Percent Auto 3.2 % (2-11); Neutrophils Percent Auto 87.5 % (45-73); Platelet Count 353 X10*3/uL (160-400); Red Blood Count 4.32 X10*6/uL (4.20-5.50); Red Cell Distribution Width 13.7 % (11.0-16.0); White Blood Count 6.8 X10*3/uL (4.8-10.8)
[2022-07-06 16:13] LABS: Prothrombin Time 11.5 SEC (10.0-13.1)
[2022-07-06 16:21] LABS: Alanine Aminotransferase 26 U/L (0-31); Albumin Level 3.7 g/dL (3.5-5.0); Alkaline Phosphatase 83 U/L (39-117); Anion Gap 14 (12-20); Aspartate Amino Transferase 25 U/L (5-31); Bilirubin Total 0.2 mg/dL (0.0-1.0); Blood Urea Nitrogen 10 mg/dL (9-16); Carbon Dioxide 30 mmol/L (22-29); Chloride 94 mmol/L (96-108); Creatinine Clr Calc Pharmacy 63.3; Estimated Glomerular Filt Rate > 60; Glucose Random 305 mg/dL (60-115); Magnesium 1.6 mg/dL (1.6-2.6); Potassium 4.6 mmol/L (3.3-5.1); Sodium 133 mmol/L (135-145); Total Protein 7.2 g/dL (6.5-8.0)
[2022-07-06 16:23] LABS: Lactic Acid 3.3 mmol/L (0.5-2.0)
[2022-07-06 16:36] LABS: SLIDE REVIEW VERIFIED
[2022-07-06 16:44] LABS: Influenza A PCR NEGATIVE (Negative); Influenza B PCR NEGATIVE (Negative); Resp Syncy Virus RNA Qual PCR NEGATIVE (Negative); SARS COV2 PCR INHOUSE NEGATIVE (Negative)
[2022-07-06 18:02] LABS: Reflex Lactate? Lactic Acid Added
[2022-07-06] MEDS: Albuterol Sulfate 7.5 MG, Albuterol Sulfate (0.083%) 2.5 MG 10 MG INHALE (18:20)
[2022-07-06 18:22] VITALS: PULSE 83; RESP 25; O2SAT 94
[2022-07-06] MEDS: methylPREDNISolone Sod Succ 125 MG/2 ML VIAL IVPUSH (18:26)
[2022-07-06] MEDS: Magnesium Sulfate/H2O 2 GM/50 ML PIGGYBACK IV (18:26)
[2022-07-06 18:28] VITALS: BP 139/51; PULSE 99; RESP 26; O2SAT 88
[2022-07-06 18:34] LABS: ~Lactic Acid-LAB USE ONLY 1.4 mmol/L (0.5-2.0)
--- NOTE | 2022-07-06 18:46 | ECG_ITS ---
Test Reason : cp Blood Pressure : / mmHG Vent. Rate : 095 BPM Atrial Rate : 095 BPM P-R Int : 152 ms QRS Dur : 078 ms QT Int : 342 ms P-R-T Axes : 063 064 080 degrees QTc Int : 429 ms Sinus rhythm with Premature supraventricular complexes Otherwise normal ECG When compared with ECG of 17-FEB-2021 12:13, Premature supraventricular complexes are now Present Referred By: Fortunato Ramos Electronically Signed By:OCTAVIANO JOHNSON
[2022-07-06 18:58] VITALS: BP 121/63; PULSE 152; RESP 30; O2SAT 93
[2022-07-06] MEDS: Metoprolol Tartrate 5 MG/5 ML VIAL IVPUSH (18:58)
[2022-07-06] MEDS: cefTRIAXone sodium 1 GM in 0.9 % Sodium Chloride 50 ML IV (20:16)
[2022-07-06] MEDS: Aspirin Enteric Coated 81 MG TABLET.DR PO (20:16)
[2022-07-06 21:18] VITALS: BP 125/49; PULSE 95; RESP 25; TEMP 37; O2SAT 94
--- NOTE | 2022-07-06 21:46 | PHA.MEDREC ---
Pharmacy Consult ? Medication Reconciliation Pharmacy has completed the medication reconciliation. Patients daughter in room, she had a list with her
--- NOTE | 2022-07-06 23:31 | PM.IMHP ---
History of Present Illness Date of Service: 07/06/22 Chief Complaint: SOB, cough 81-year-old female with past medical history of COPD, on baseline 2 L of oxygen, hypertension, statin, restless leg syndrome, presents to the hospital with complaints of shortness of breath, persistent worsening cough and increased sputum production. She was seen at [facility] and was told that she is positive for adenovirus and coronavirus . Patient was sent home with azithromycin prednisone and cough medication but reports that her symptoms got worse and have not improved. Patient uses 2 L of oxygen at baseline and has had frequent hospitalizations in the past. Patient denies any fever no chills, no nausea or vomiting, no abdominal pain, no diarrhea or constipation, no urinary symptoms and no lower extremity edema. on arrival to the ED patient found to have O2 of 88% on her, patient is currently on 3 L satting 94%. patient also noted to be tachycardic with a heart rate in the 150 seems to be AFib on EKG, respiratory rate of 30, blood pressure stable Labs are significant for lactic acid of 3.3, improved after IV fluids, COVID-19, RSV as well as influenza negative EKG showed AFib with RVR chest x-ray showing superimposed acute disease at the left base Review of Systems Review of Systems: Yes all other systems are reviewed and are negative [facility] Medical History Chronic respiratory failure COPD (chronic obstructive pulmonary disease) Pneumonia Family History Other No family history of coronary artery disease Surgical History No pertinent past surgical history Social History Alcohol intake: never Patient Tobacco Use Status: Never used Tobacco Smoked in Last 30 Days: No Use of substances other than those prescribed or required for medical reasons: No Advance Directives: No Advance Directives Information Provided: No Meds Allergies Allergy/AdvReac Type Severity Reaction Status Date / Time No Known Allergies Allergy Verified 05/19/22 15:38 Home Medications Medication Instructions Recorded Confirmed Last Taken Type albuterol sulfate 2.5 mg/3 mL 2.5 mg inhalation Q4-6H PRN 03/07/21 07/06/22 Unknown History (0.083 %) solution for nebulization Wheezing famotidine 20 mg tablet 20 mg PO DAILY@79903/07/21 07/06/22 Unknown History pravastatin 40 mg tablet 40 mg PO DAILY@199903/07/21 07/06/22 Unknown History ropinirole 0.25 mg tablet 0.25 mg PO DAILY@199903/07/21 07/06/22 Unknown History ascorbic acid (vitamin C) 500 mg 500 mg PO DAILY@79909/19/21 07/06/22 Unknown History capsule calcium citrate 600 mg PO BID@08,199909/19/21 07/06/22 Unknown History citalopram 10 mg tablet 20 mg PO DAILY@79909/19/21 07/06/22 Unknown History docusate sodium 100 mg capsule 100 mg PO DAILY 09/19/21 07/06/22 Unknown History (Colace) turmeric root extract 500 mg 500 mg PO DAILY@0809/19/21 07/06/22 Unknown History capsule lisinopril 10 mg tablet 10 mg PO DAILY@79905/19/22 07/06/22 Unknown History furosemide 20 mg tablet (Lasix) 20 mg PO DAILY@199907/06/22 07/06/22 Unknown History gabapentin 300 mg capsule 300 mg PO DAILY@199907/06/22 07/06/22 Unknown History guaifenesin 400 mg tablet 400 mg PO DAILY@0807/06/22 07/06/22 Unknown History loratadine 10 mg tablet 10 mg PO DAILY@79907/06/22 07/06/22 Unknown History montelukast 10 mg tablet 10 mg PO DAILY@79907/06/22 07/06/22 Unknown History Physical Exam Vital Signs and Narrative: Vital Signs: Last Vital Signs Temp 98.6 F 07/06/22 21:18 Pulse 95 07/06/22 21:18 Resp 25 H 07/06/22 21:18 BP 125/49 L 07/06/22 21:18 Pulse Ox 94 07/06/22 21:18 O2 Del Method 07/06/22 21:18 O2 Flow Rate 3 07/06/22 21:18 Oxygen Flow Rate 2 07/06/22 15:35 BMI result Body Mass Index 29.9 Const: General: cooperative and no acute distress Orientation/consciousness: patient oriented x3 Eyes: General: appearance normal, both eyes and all related structures Resp: Other: diminished breath sounds Effort & Inspection: normal respiratory effort Cardio: Rate: regular rate Rhythm: regular rhythm GI: Palpation (GI): Soft to palpation Auscultation: normal bowel sounds Skin: General skin exam: no rashes or lesions noted Neuro: General: patient oriented x3 Cognition (Neuro): normal cognition Extrem: General: Yes normal to inspection and Yes no pedal edema Results Labs CBC and Chem 7: 07/06/22 15:56 07/06/22 15:56 Labs: Laboratory Results - last 24 hr 07/06/22 07/06/22 07/06/22 15:56 15:56 15:56 MCV 91.4 MCH 28.9 MCHC 31.6 RDW 13.7 Plt Count 353 MPV 9.6 Immature Gran % (Auto) 0.9 H Neut % (Auto) 87.5 H Lymph % (Auto) 8.3 L [place] % (Auto) 3.2 Eos % (Auto) 0.0 Baso % (Auto) 0.1 Lymph # (Auto) 0.6 L [place] # (Auto) 0.2 Eos # (Auto) 0.0 Baso # (Auto) 0.0 Abs Immat Gran (auto) 0.06 H Absolute Neuts (auto) 6.0 Absolute Nucleated RBC 0.000 Nucleated RBC % (auto) 0.0 Smear Tech's Comments VERIFIED PT 11.5 INR 1.0 Anion Gap Estim Creat Clear Calc Estimated GFR Random Glucose Lactic Acid Lactic Acid F/U @ 2Hr Calcium Magnesium Total Bilirubin AST ALT Alkaline Phosphatase Total Protein Albumin Influenza Type A (PCR) NEGATIVE Influenza Type B (PCR) NEGATIVE RSV RNA Qual (PCR) NEGATIVE SARS-CoV-2 RNA (RT-PCR) NEGATIVE 07/06/22 07/06/22 07/06/22 15:56 15:56 18:21 MCV MCH MCHC RDW Plt Count MPV Immature Gran % (Auto) Neut % (Auto) Lymph % (Auto) [place] % (Auto) Eos % (Auto) Baso % (Auto) Lymph # (Auto) [place] # (Auto) Eos # (Auto) Baso # (Auto) Abs Immat Gran (auto) Absolute Neuts (auto) Absolute Nucleated RBC Nucleated RBC % (auto) Smear Tech's Comments PT INR Anion Gap 14 Estim Creat Clear Calc 63.3 Estimated GFR > 60 Random Glucose 305 H Lactic Acid 3.3 H* Lactic Acid F/U @ 2Hr 1.4 Calcium 9.0 D Magnesium 1.6 Total Bilirubin 0.2 AST 25 ALT 26 Alkaline Phosphatase 83 Total Protein 7.2 Albumin 3.7 Influenza Type A (PCR) Influenza Type B (PCR) RSV RNA Qual (PCR) SARS-CoV-2 RNA (RT-PCR) Imaging Radiologist's Impressions: Impressions Chest X-Ray 07/06/22 16:15 IMPRESSION: Chronic interstitial lung disease with what appears to be some superimposed acute disease at the left base. Assessment and Plan (1) Sepsis: Status: Acute (2) Acute exacerbation of chronic obstructive airways disease: Status: Acute (3) Atrial fibrillation with RVR: Status: Acute (4) Acute pneumonia: Status: Acute Plan 81-year-old female with past medical history of COPD presents to the hospital with persistent increased cough increased sputum production and dyspnea # sepsis - likely secondary to pneumonia and COPD exacerbation - which he with IV antibiotics - follow cultures # acute COPD exacerbation - will treat with Solu-Medrol, DuoNeb p.r.n. as well as schedule - monitor respiratory status - on baseline 2 L of oxygen # acute pneumonia - as evidence seen on chest x-ray - has increased shortness of breath, cough and sputum production, has tachycardia, lactic acidosis - will treat with IV antibiotics - follow cultures # AFib with RVR - EKG shows AFib with RVR - appears to be new onset - will obtain troponin, BNP - will obtain echocardiogram - consult cardiology - admit to telemetry DVT prophylaxis: Lovenox Given patient's pneumonia, sepsis, requiring IV antibiotics as well as new AFib requiring further workup patient will require minimum 2 nights inpatient hospital stay for further management and monitor Time Spent With Patient Time: Total time managing care of this patient today ____ minutes. Quality Stroke Does the patient have a stroke diagnosis?: No VTE Prior VTE?: No VTE Risk Level:: Medical - moderate - high VTE Device Contraindication: Treatment Not Indicated VTE Drug Contraindication: N/A - Med Ordered
[2022-07-07] VITALS (8 sets, daily range): BP systolic 114–167; BP diastolic 53–82; PULSE 75–114; RESP 18–29; TEMP 36.7–37.2; O2SAT 91–98; BMI 30.9
--- NOTE | 2022-07-07 00:09 | PC.NURSE ---
Pt aox4 resting at the bedside. Medicated as ordered. Repositioned for comfort. Expiratory bilateral wheezes present with productive cough and clear white phlegm. O2 sat 95% on 3L nc. RR 26 bmp. NSR on monitor with HR 90. Pt in no apparent distress and aware of plan care. Will continue to monitor.
[2022-07-07] MEDS: Azithromycin 500 MG TABLET PO ×2 (00:13→20:56)
[2022-07-07] MEDS: Enoxaparin Sodium 40 MG/0.4 ML SYRINGE SUBCUT (00:13)
[2022-07-07] MEDS: 0.9 % Sodium Chloride Flush 3 ML SYRINGE IVFLUSH ×4 (00:17→20:58)
[2022-07-07 02:56] LABS: Troponin-I High Sensitivity 6.6 ng/L (<3.5-17.0)
[2022-07-07 03:25] LABS: B Type Natriuretic Peptide 163 pg/mL (<100)
[2022-07-07 04:59] LABS: Hematocrit 37.5 % (37.0-47.0); Hemoglobin 11.8 g/dl (12.0-16.0); Imm Gran Abs Auto 0.07 X10*3/uL (0.00-0.03); Imm Gran Pct Auto 1.6 % (0.0-0.4); Lymphocytes Absolute Auto 0.8 X10*3/uL (1.2-4.9); Lymphocytes Percent Auto 17.7 % (20-40); MANUAL DIFF FLAG SCAN; Mean Corpuscular HGB Conc 31.5 g/dl (31.0-35.0); Mean Corpuscular Hemoglobin 28.9 pg (27.0-33.0); Mean Corpuscular Volume 91.7 fL (80.0-98.0); Monocytes Absolute Auto 0.2 X10*3/uL (0.1-1.2); Monocytes Percent Auto 3.4 % (2-11); Neutrophils Absolute Auto 3.5 x10*3/uL (2.0-8.3); Neutrophils Percent Auto 77.3 % (45-73); Platelet Count 296 X10*3/uL (160-400); Red Blood Count 4.09 X10*6/uL (4.20-5.50); Red Cell Distribution Width 13.5 % (11.0-16.0); SCAN SMEAR FLAG 1; White Blood Count 4.5 X10*3/uL (4.8-10.8)
[2022-07-07] MEDS: methylPREDNISolone Sod Succ 40 MG/ML VIAL IVPUSH ×2 (05:07→17:28)
[2022-07-07] MEDS: Benzonatate 100 MG CAPSULE 200 MG PO ×3 (05:07→22:51)
[2022-07-07 05:18] LABS: SLIDE REVIEW VERIFIED
--- NOTE | 2022-07-07 05:19 | PC.NURSE ---
Pt aox3 sitting at the bedside. Medicated for cough. Pt reports unable to sleep/rest due to coughing. O2 sat 95% on 3L nc. NSR on monitor with HR 85. Reports body aches due to laying in bed for to long, 09/11. Will continue to monitor.
[2022-07-07 05:21] LABS: Anion Gap 11 (12-20); Blood Urea Nitrogen 10 mg/dL (9-16); Calcium 8.7 mg/dL (8.4-10.2); Carbon Dioxide 31 mmol/L (22-29); Chloride 95 mmol/L (96-108); Creatinine Clr Calc Pharmacy 72.9; Estimated Glomerular Filt Rate > 60; Glucose Random 206 mg/dL (60-115); Potassium 4.5 mmol/L (3.3-5.1); Sodium 132 mmol/L (135-145)
--- NOTE | 2022-07-07 07:00 | CA_ITS ---
Transthoracic Echocardiogram Patient (Last, First, Middle): Tanya Joya, Gender: Female Date of : 1940 Age: 81 Procedure Date: 07/07/2022 Procedure Type: Transthoracic Echocardiogram Location: ER Height: 157.48 cm Weight: 74.39 kg BSA: 1.76 m2 Heart Rate: 82 bpm BP: 143 / 60 mmHg Cardiology Physician: ERLIN Referring MD: Rod Uribe MD Symptoms: new onset A fib Study Quality: Fair/Contrast ECG Rhythm: Atrial Fibrillation Conclusions: - The left ventricular systolic function is low normal. The visually estimated ejection fraction is between 50-55%. - The left atrium is moderately dilated. - There is moderate calcification of the aortic valve. - There is mild mitral annular calcification. - Mild pulmonary hypertension is present. Findings Procedure Information Contrast agent, definity, is being given per protocol without apparent complications. Left Ventricle Normal left ventricular cavity size. There is normal left ventricular wall thickness. The left ventricular systolic function is low normal. The visually estimated ejection fraction is between 50-55%. There is no evidence of regional wall motion abnormalities. Diastolic function is normal for age. Right Ventricle Mildly increased right ventricular cavity size. There is normal right ventricular systolic function. Atria The left atrium is moderately dilated. The right atrium is normal in size. Aortic Valve There is moderate calcification of the aortic valve. There is trace (trivial) aortic valve regurgitation. No significant aortic stenosis. Mitral Valve There is mild mitral annular calcification. There is trace mitral valve regurgitation. There is no mitral valve stenosis. Pulmonic Valve The pulmonic valve is likely normal. Tricuspid Valve There is trace tricuspid valve regurgitation. Mild pulmonary hypertension is present. Great Vessels The asc aorta is normal in size. Venous The inferior vena cava is mildly dilated and collapses greater than 50% with inspiration. Pericardium/Pleural There is no evidence of pericardial effusion. Prior Study Comparison No prior study available for comparison. Measurements 2D Linear Measurements IVSd: 0.78 0.6-0.9/0.6-1.0 cm LVIDd: 5.02 3.9-5.3/4.2-5.9 cm LVIDd Index: 2.85 2.4-3.2/2.2-3.1 cm/m2 LVIDs: 3.46 2.0-3.6 cm LVPWd: 0.95 0.7-1.1 cm LA Diam: 3.40 2.7-3.8/3.0-4.0 cm LAIDs Index: 1.93 1.5-2.3 cm/m2 LV Mass: 188.28 67-162/88-224 g LV Mass Index: 106.98 43-95/49-115 g/m2 LVOT Diam: 1.90 3.0+(-)1.3 cm 2D Systolic Function EF 4C: 53.40 >55% EF 2C: 54.10 >55% EF BiP: 54.70 >55% Mitral Valve MV Pk E: 0.79 MV PK A: 0.90 MV Decel Time: 198.00 E/A: 0.90 E'Lateral: 10.00 E'Medial: 5.55 E/E' Med: 14.20 E/E' Lat: 7.90 PHT: 58.00 MVA PHT: 3.79 Decel [place]: 3.99 Aortic Valve AoV Pk Eladio: 1.61 AoV Mn Eladio: 1.15 AoV VTI: 0.37 AoV Pk Grad: 10.00 Aov Mn Grad: 6.00 JODIE Cont.VTI: 1.89 LVOT LVOT Pk Eladio: 1.08 LVOT Mn Eladio: 0.76 LVOT VTI: 0.24 LVOT Pk Grad: 5.00 LVOT Mn Grad: 3.00 LVOT Diam: 1.90 LVOT Area: 2.84 Diastolic Function MV Pk E: 0.79 MV Pk A: 0.90 E/A: 0.90 E'Medial: 5.55 E/E' Med: 14.20 E' Laterial: 10.00 E/E' Lat: 7.90 Right Ventricle TAPSE (mm): 27.80 TVS' Eladio: 13.10 Tricuspid Valve TR Pk Eladio: 2.94 TR Pk Grad: 35.00 RA Press: 8.00 RVSP: 43.00 Great Vessels Aorta Sinus of Valsalva: 3.20 2.0-3.5 cm Ao Asc: 3.40 2.1-3.4 cm Pulmonary Valve PV Pk Eladio: 1.17 Peak PV Grad: 5.00 Updated in Other Vendor System with Status of Final Ruben Hickey MD electronically signed on 07/07/2022 11:25:53 AM with status of Final
[2022-07-07] MEDS: Albuterol/Iprat 2.5/0.5MG 3 ML AMPUL.NEB INHALE ×3 (07:33→14:44)
--- NOTE | 2022-07-07 09:53 | MHC.CM.PN ---
CM initially spoke with Patient but was asked to speak with Daughter/HCP/Ashley at her listed number; CM addressed IMM with Ashley. Patient lives in a house with her Daughter and she required no DME [employer] and she uses home O2 PRN through [employer]. Home/resume home O2 is the goal and CM has initiated and will follow for dc planning. Patient has received Covid vax x5 and her PCP is Dr. Lizandro Gibbs.
--- NOTE | 2022-07-07 10:03 | PM.CNCAR ---
History of Present Illness History of Present Illness Date of Service: 07/07/22 Chief complaint: COPD Exacerbation, PNA Narrative: This is a cardiology consultation regarding atrial fibrillation. Patient has history of COPD on baseline 2 L of oxygen, hypertension and multiple medical comorbidities. Patient is for shortness of breath, cough and sputum production. In this context, it seems she was tested positive for adenovirus/Coronavirus [place]. Then apparently sent home with azithromycin. Then cough got worse and now she is readmitted here. With regard to her rhythm, has been in atrial fibrillation with rapid rate in the 150s leading to this consultation. Patient herself does not have any symptoms like palpitations. No anginal-type symptoms. Denies any history of coronary disease or congestive heart failure. No atrial fibrillation in the prior history either. Review of Systems Review of Systems: Yes all other systems are reviewed and are negative Constitutional: Constitutional: Reports as per HPI Eyes: Eyes: Reports as per HPI ENT: Reports as per HPI Cardiovascular: Cardiovascular: Reports as per HPI, Denies acrocyanosis, Denies cool extremities, Denies chest pain, Denies leg edema, Denies lightheadedness, Denies palpitations and Reports dyspnea Respiratory: Respiratory: Reports as per HPI, Reports no additional respiratory complaints, Reports cough and Reports dyspnea Gastrointestinal: Gastrointestinal: Reports as per HPI and Reports no additional gastrointestinal complaints Genitourinary: Genitourinary: Reports as per HPI Musculoskeletal: Musculoskeletal: Reports no additional musculoskeletal complaints and Reports as per HPI Integumentary/Breasts: Skin/Breast: Reports system reviewed and no additional complaints, except as docu Neurologic: Reports system reviewed and no additional complaints, except as documented and Reports as per HPI Psychiatric: Psychiatric: Reports no additional psychiatric complaints and Reports as per HPI Endocrine: Endocrine: Reports no additional endocrine complaints, Reports as per HPI and Denies palpitations Hematologic/Lymphatic: Hematologic/Lymphatic: Reports no additional hematologic/lymphatic complaints and Reports as per HPI Allergic/Immunologic: Allergic/Immunologic: Reports no additional allergic/immunologic complaints and Reports as per HPI PMFSH Past Medical History Medical History Chronic respiratory failure COPD (chronic obstructive pulmonary disease) Pneumonia Family History Family History (Updated 07/07/22 @ 10:06 by Ruben Hickey MD) Brother Myocardial infarction Father Stroke Surgical History Surgical History No pertinent past surgical history Social History Social History Alcohol intake: never Patient Tobacco Use Status: Never used Tobacco Smoked in Last 30 Days: No Use of substances other than those prescribed or required for medical reasons: No Advance Directives: No Advance Directives Information Provided: No service: No Current occupational status: retired [employer] Allergies Allergy/AdvReac Type Severity Reaction Status Date / Time No Known Allergies Allergy Verified 05/19/22 15:38 Active Medications: Current Medications Acetaminophen (Acetaminophen 325 Mg Tablet) 650 mg PO Q6H PRN PRN Reason: Pain, Mild (Pain Scale 1-3) Albuterol/Ipratropium (Albuterol/Iprat 2.5/0.5mg 3 Ml Ampul.Neb) 3 ml INHALE RQ4H PRN PRN Reason: Shortness of Breath/Wheezing Albuterol/Ipratropium (Albuterol/Iprat 2.5/0.5mg 3 Ml Ampul.Neb) 3 ml INHALE RQ4H WHILE AWAKE [facility] Last Admin: 07/07/22 07:33 Dose: 3 ml Ascorbic Acid (Ascorbic Acid 500 Mg Tablet) 500 mg PO DAILY@0800 [facility] Azithromycin (Azithromycin 500 Mg Tablet) 500 mg PO BEDTIME [facility] Last Admin: 07/07/22 00:13 Dose: 500 mg Benzonatate (Benzonatate 100 Mg Capsule) 200 mg PO TID PRN PRN Reason: Cough Last Admin: 07/07/22 05:07 Dose: 200 mg Docusate Sodium (Docusate Sodium 100 Mg Capsule) 100 mg PO DAILY PRN PRN Reason: Constipation Docusate Sodium (Docusate Sodium 100 Mg Capsule) 100 mg PO DAILY [facility] Enoxaparin Sodium (Enoxaparin Sodium 40 Mg/0.4 Ml Syringe) 40 mg SUBCUT BEDTIME [facility] Last Admin: 07/07/22 00:13 Dose: 40 mg Escitalopram Oxalate (Escitalopram Oxalate 10 Mg Tablet) 10 mg PO DAILY@0800 [facility] Famotidine (Famotidine 20 Mg Tablet) 20 mg PO DAILY@0800 [facility] Fluticasone Propionate (Fluticasone Propionate Nasal 16 Gm [place]) 2 spray NOSTRIL-B DAILY [facility] Fluticasone/Vilanterol (Fluticasone/Vilanterol 100/25 Blst.W.Dev) 1 puff INHALE RBID [facility] Last Admin: 07/07/22 10:00 Dose: Not Given Furosemide (Furosemide 20 Mg Tablet) 20 mg PO DAILY@1999 [facility]; Protocol Gabapentin (Gabapentin 300 Mg Capsule) 300 mg PO DAILY@1999 [facility] Ceftriaxone Sodium 1 gm/ (Sodium Chloride) 50 mls @ 100 mls/hr IV Q24H [facility] Lisinopril (Lisinopril 10 Mg Tablet) 10 mg PO DAILY@08 [facility]; Protocol Loratadine (Loratadine 10 Mg Tablet) 10 mg PO DAILY@08 [facility] Melatonin (Melatonin 3 Mg Tablet) 6 mg PO BEDTIME PRN PRN Reason: Insomnia Methylprednisolone Sodium Succinate (Methylprednisolone Sod Succ 40 Mg/Ml Vial) 40 mg IVPUSH Q12H [facility] Last Admin: 07/07/22 05:07 Dose: 40 mg Montelukast Sodium (Montelukast Sodium 10 Mg Tablet) 10 mg PO DAILY@08 [facility] Ondansetron HCl (Ondansetron Hcl 4 Mg/2 Ml Vial) 4 mg IVPUSH Q8H PRN PRN Reason: Nausea and Vomiting Pravastatin Sodium (Pravastatin Sodium 40 Mg Tablet) 40 mg PO DAILY@1999 [facility] Ropinirole HCl (Ropinirole Hcl 0.25 Mg Tablet) 0.25 mg PO DAILY@1999 [facility] Sodium Chloride (0.9 % Sodium Chloride Flush 3 Ml Syringe) 3 ml IVFLUSH QSHIFT [facility] Last Admin: 07/07/22 00:17 Dose: 3 ml Tiotropium [place] (Tiotropium [place] 18 Mcg Cap.W.Dev) 1 puff INHALE RDAILY [facility] Last Admin: 07/07/22 10:00 Dose: Not Given Home Medications Medication Instructions Recorded Confirmed Last Taken Type albuterol sulfate 2.5 mg/3 mL 2.5 mg inhalation Q4-6H PRN 03/07/21 07/06/22 Unknown History (0.083 %) solution for nebulization Wheezing famotidine 20 mg tablet 20 mg PO DAILY@79903/07/21 07/06/22 Unknown History pravastatin 40 mg tablet 40 mg PO DAILY@199903/07/21 07/06/22 Unknown History ropinirole 0.25 mg tablet 0.25 mg PO DAILY@199903/07/21 07/06/22 Unknown History ascorbic acid (vitamin C) 500 mg 500 mg PO DAILY@0809/19/21 07/06/22 Unknown History capsule calcium citrate 600 mg PO BID@08,199909/19/21 07/06/22 Unknown History citalopram 10 mg tablet 20 mg PO DAILY@0809/19/21 07/06/22 Unknown History docusate sodium 100 mg capsule 100 mg PO DAILY 09/19/21 07/06/22 Unknown History (Colace) turmeric root extract 500 mg 500 mg PO DAILY@79909/19/21 07/06/22 Unknown History capsule lisinopril 10 mg tablet 10 mg PO DAILY@79905/19/22 07/06/22 Unknown History furosemide 20 mg tablet (Lasix) 20 mg PO DAILY@199907/06/22 07/06/22 Unknown History gabapentin 300 mg capsule 300 mg PO DAILY@199907/06/22 07/06/22 Unknown History guaifenesin 400 mg tablet 400 mg PO DAILY@79907/06/22 07/06/22 Unknown History loratadine 10 mg tablet 10 mg PO DAILY@79907/06/22 07/06/22 Unknown History montelukast 10 mg tablet 10 mg PO DAILY@79907/06/22 07/06/22 Unknown History Physical Exam Vital Signs: Vital Signs: Last Vital Signs Temp 98.0 F 07/07/22 06:10 Pulse 95 07/07/22 07:45 Resp 29 H 07/07/22 07:45 BP 167/77 H 07/07/22 07:45 Pulse Ox 95 07/07/22 07:45 O2 Del Method 07/07/22 07:45 O2 Flow Rate 3 07/07/22 07:45 Oxygen Flow Rate 2 07/06/22 15:35 BMI result Body Mass Index 29.9 Const: General: comfortable and no acute distress Orientation/consciousness: patient oriented x3 HEENT: Other: Unremarkable Head: Yes normal to inspection Neck: Neck: Yes normal visual inspection Chest: Chest palpation & inspection: normal inspection of the chest Resp: Auscultation: rhonchi, wheezes and diminished lung sounds Cardio: Palpation: normal PMI Heart sounds: S1 normal heart sound present, S2 normal heart sound present, no gallops, no murmurs and no rubs GI: Palpation (GI): Soft to palpation Back/Spine/Pelvis: Other: unremarkable Skin: General skin exam: no rashes or lesions noted Neuro: General: patient oriented x3 Extrem: General: Yes normal to inspection Psych: Mental Status: mental status grossly normal Objective Labs and Meds Result diagrams: 07/07/22 04:42 07/07/22 04:42 Lab results: Laboratory Results - last 24 hr 07/06/22 07/06/22 07/06/22 15:56 15:56 15:56 WBC 6.8 RBC 4.32 Hgb 12.5 Hct 39.5 MCV 91.4 MCH 28.9 MCHC 31.6 RDW 13.7 Plt Count 353 MPV 9.6 Immature Gran % (Auto) 0.9 H Neut % (Auto) 87.5 H Lymph % (Auto) 8.3 L [place] % (Auto) 3.2 Eos % (Auto) 0.0 Baso % (Auto) 0.1 Lymph # (Auto) 0.6 L [place] # (Auto) 0.2 Eos # (Auto) 0.0 Baso # (Auto) 0.0 Abs Immat Gran (auto) 0.06 H Absolute Neuts (auto) 6.0 Absolute Nucleated RBC 0.000 Nucleated RBC % (auto) 0.0 Smear Tech's Comments VERIFIED PT 11.5 INR 1.0 Sodium Potassium Chloride Carbon Dioxide Anion Gap BUN Creatinine Estim Creat Clear Calc Estimated GFR Random Glucose Lactic Acid Lactic Acid F/U @ 2Hr Calcium Magnesium Total Bilirubin AST ALT Alkaline Phosphatase Troponin I High Sens B-Natriuretic Peptide Total Protein Albumin Influenza Type A (PCR) NEGATIVE Influenza Type B (PCR) NEGATIVE RSV RNA Qual (PCR) NEGATIVE SARS-CoV-2 RNA (RT-PCR) NEGATIVE 07/06/22 07/06/22 07/06/22 15:56 15:56 18:21 WBC RBC Hgb Hct MCV MCH MCHC RDW Plt Count MPV Immature Gran % (Auto) Neut % (Auto) Lymph % (Auto) [place] % (Auto) Eos % (Auto) Baso % (Auto) Lymph # (Auto) [place] # (Auto) Eos # (Auto) Baso # (Auto) Abs Immat Gran (auto) Absolute Neuts (auto) Absolute Nucleated RBC Nucleated RBC % (auto) Smear Tech's Comments PT INR Sodium 133 L Potassium 4.6 Chloride 94 L Carbon Dioxide 30 H Anion Gap 14 BUN 10 Creatinine 0.68 Estim Creat Clear Calc 63.3 Estimated GFR > 60 Random Glucose 305 H Lactic Acid 3.3 H* Lactic Acid F/U @ 2Hr 1.4 Calcium 9.0 D Magnesium 1.6 Total Bilirubin 0.2 AST 25 ALT 26 Alkaline Phosphatase 83 Troponin I High Sens B-Natriuretic Peptide Total Protein 7.2 Albumin 3.7 Influenza Type A (PCR) Influenza Type B (PCR) RSV RNA Qual (PCR) SARS-CoV-2 RNA (RT-PCR) 07/07/22 07/07/22 07/07/22 02:11 02:11 04:42 WBC 4.5 L RBC 4.09 L Hgb 11.8 L Hct 37.5 MCV 91.7 MCH 28.9 MCHC 31.5 RDW 13.5 Plt Count 296 MPV 10.0 Immature Gran % (Auto) 1.6 H Neut % (Auto) 77.3 H Lymph % (Auto) 17.7 L [place] % (Auto) 3.4 Eos % (Auto) 0.0 Baso % (Auto) 0.0 Lymph # (Auto) 0.8 L [place] # (Auto) 0.2 Eos # (Auto) 0.0 Baso # (Auto) 0.0 Abs Immat Gran (auto) 0.07 H Absolute Neuts (auto) 3.5 Absolute Nucleated RBC 0.000 Nucleated RBC % (auto) 0.0 Smear Tech's Comments VERIFIED PT INR Sodium Potassium Chloride Carbon Dioxide Anion Gap BUN Creatinine Estim Creat Clear Calc Estimated GFR Random Glucose Lactic Acid Lactic Acid F/U @ 2Hr Calcium Magnesium Total Bilirubin AST ALT Alkaline Phosphatase Troponin I High Sens 6.6 B-Natriuretic Peptide 163 H Total Protein Albumin Influenza Type A (PCR) Influenza Type B (PCR) RSV RNA Qual (PCR) SARS-CoV-2 RNA (RT-PCR) 07/07/22 04:42 WBC RBC Hgb Hct MCV MCH MCHC RDW Plt Count MPV Immature Gran % (Auto) Neut % (Auto) Lymph % (Auto) [place] % (Auto) Eos % (Auto) Baso % (Auto) Lymph # (Auto) [place] # (Auto) Eos # (Auto) Baso # (Auto) Abs Immat Gran (auto) Absolute Neuts (auto) Absolute Nucleated RBC Nucleated RBC % (auto) Smear Tech's Comments PT INR Sodium 132 L Potassium 4.5 Chloride 95 L Carbon Dioxide 31 H Anion Gap 11 L BUN 10 Creatinine 0.59 Estim Creat Clear Calc 72.9 Estimated GFR > 60 Random Glucose 206 H Lactic Acid Lactic Acid F/U @ 2Hr Calcium 8.7 Magnesium Total Bilirubin AST ALT Alkaline Phosphatase Troponin I High Sens B-Natriuretic Peptide Total Protein Albumin Influenza Type A (PCR) Influenza Type B (PCR) RSV RNA Qual (PCR) SARS-CoV-2 RNA (RT-PCR) ECG Interpretation: Initial EKG with sinus rhythm at 95/Min; premature atrial complexes. Repeat EKG with atrial fibrillation at a rate of 153/Min with nonspecific ST-T changes. Imaging Radiologist's impression: Impressions Chest X-Ray 07/06/22 16:15 IMPRESSION: Chronic interstitial lung disease with what appears to be some superimposed acute disease at the left base. Assessment and Plan (1) Atrial fibrillation with RVR: Status: Acute (2) Acute exacerbation of chronic obstructive airways disease: Status: Acute Plan EKG from last night had shown atrial fibrillation with rapid rate. Currently, she is in sinus rhythm by telemetry. She does not have any clear symptoms of atrial fibrillation and hence could have other silent episodes at different times but not identified. With her thromboembolic risk, do recommend anticoagulation. Can start Eliquis 5 mg b.i.d.. Otherwise, can start diltiazem 60 mg Q 6 hourly for keeping in sinus. Echocardiogram for cardiac function assessment. Will follow up with you. Discussed with Dr. Clark. Time Spent With Patient Time: Total time managing care of this patient today 70 minutes. Procedures Date of Service Date of Service: 07/07/22
[2022-07-07] MEDS: Loratadine 10 MG TABLET PO (10:26)
[2022-07-07] MEDS: Famotidine 20 MG TABLET PO (10:26)
[2022-07-07] MEDS: lisinopriL 10 MG TABLET PO (10:26)
[2022-07-07] MEDS: Ascorbic Acid 500 MG TABLET PO (10:26)
[2022-07-07] MEDS: Montelukast Sodium 10 MG TABLET PO (10:26)
[2022-07-07] MEDS: Docusate Sodium 100 MG CAPSULE PO (10:26)
[2022-07-07] MEDS: Fluticasone Propionate Nasal 16 GM SPRAY 2 SPRAY NOSTRIL-B (10:28)
[2022-07-07] MEDS: Acetaminophen 325 MG TABLET 650 MG PO ×2 (10:59→17:28)
--- NOTE | 2022-07-07 12:45 | HO.PM.IMPN ---
Subjective Subjective Date of Service: 07/07/22 Interval History: the patient was seen and evaluated this morning Laying in bed, feels mild improvement since admission Converted back to sinus rhythm Still requiring oxygen supplement No reported other overnight events. Systemic review: No fever, chills or weakness No chest pain, palpitation Dyspnea with minimal exertion, feels comfortable sitting No abdominal pain, nausea or vomiting No urinary symptoms No reported rash Physical Exam Vital Signs: Vital Signs: Last Vital Signs Temp 98.0 F 07/07/22 06:10 Pulse 75 07/07/22 11:27 Resp 20 07/07/22 11:27 BP 167/77 H 07/07/22 07:45 Pulse Ox 95 07/07/22 07:45 O2 Del Method 07/07/22 07:45 O2 Flow Rate 3 07/07/22 07:45 Oxygen Flow Rate 2 07/06/22 15:35 BMI result Body Mass Index 29.9 Const: Other: Constitutional : Awake, interactive, not in distress Neck : Normal inspection, Supple Cardiovascular : RRR, no JVP, no lower extremity edema Respiratory : Fair bilateral air entry, bilateral expiratory wheezes Gastrointestinal: soft, lax, Normal bowel sounds, Non tender Skin : Warm, Dry Neurological : Alert & oriented x3, No focal deficit , CN 2-12 within normal Objective Data Active Medications Acetaminophen (Acetaminophen 325 Mg Tablet) 650 mg PO Q6H PRN PRN Reason: Pain, Mild (Pain Scale 1-3) Last Admin: 07/07/22 10:59 Dose: 650 mg Documented By: DOUGLAS Albuterol/Ipratropium (Albuterol/Iprat 2.5/0.5mg 3 Ml Ampul.Neb) 3 ml INHALE RQ4H PRN PRN Reason: Shortness of Breath/Wheezing Albuterol/Ipratropium (Albuterol/Iprat 2.5/0.5mg 3 Ml Ampul.Neb) 3 ml INHALE RQ4H WHILE AWAKE [facility] Last Admin: 07/07/22 11:25 Dose: 3 ml Documented By: YARA Apixaban (Apixaban 5 Mg Tablet) 5 mg PO BID [facility] Ascorbic Acid (Ascorbic Acid 500 Mg Tablet) 500 mg PO DAILY@0800 [facility] Last Admin: 07/07/22 10:26 Dose: 500 mg Documented By: ROSA ISELA Azithromycin (Azithromycin 500 Mg Tablet) 500 mg PO BEDTIME [facility] Last Admin: 07/07/22 00:13 Dose: 500 mg Documented By: MARK Benzonatate (Benzonatate 100 Mg Capsule) 200 mg PO TID PRN PRN Reason: Cough Last Admin: 07/07/22 05:07 Dose: 200 mg Documented By: MARK Diltiazem HCl (Diltiazem Hcl 30 Mg Tablet) 30 mg PO QID [facility]; Protocol Docusate Sodium (Docusate Sodium 100 Mg Capsule) 100 mg PO DAILY PRN PRN Reason: Constipation Docusate Sodium (Docusate Sodium 100 Mg Capsule) 100 mg PO DAILY [facility] Last Admin: 07/07/22 10:26 Dose: 100 mg Documented By: ROSA ISELA Escitalopram Oxalate (Escitalopram Oxalate 10 Mg Tablet) 10 mg PO DAILY@0800 [facility] Famotidine (Famotidine 20 Mg Tablet) 20 mg PO DAILY@0800 [facility] Last Admin: 07/07/22 10:26 Dose: 20 mg Documented By: ROSA ISELA Fluticasone Propionate (Fluticasone Propionate Nasal 16 Gm [place]) 2 spray NOSTRIL-B DAILY [facility] Last Admin: 07/07/22 10:28 Dose: 2 spray Documented By: ROSA ISELA Fluticasone/Vilanterol (Fluticasone/Vilanterol 100/25 Blst.W.Dev) 1 puff INHALE RDAILY [facility] Furosemide (Furosemide 20 Mg Tablet) 20 mg PO DAILY@1999 [facility]; Protocol Gabapentin (Gabapentin 300 Mg Capsule) 300 mg PO DAILY@1999 [facility] Ceftriaxone Sodium 1 gm/ (Sodium Chloride) 50 mls @ 100 mls/hr IV Q24H [facility] Lisinopril (Lisinopril 10 Mg Tablet) 10 mg PO DAILY@0800 [facility]; Protocol Last Admin: 07/07/22 10:26 Dose: 10 mg Documented By: ROSA ISELA Loratadine (Loratadine 10 Mg Tablet) 10 mg PO DAILY@0800 [facility] Last Admin: 07/07/22 10:26 Dose: 10 mg Documented By: ROSA ISELA Melatonin (Melatonin 3 Mg Tablet) 6 mg PO BEDTIME PRN PRN Reason: Insomnia Methylprednisolone Sodium Succinate (Methylprednisolone Sod Succ 40 Mg/Ml Vial) 40 mg IVPUSH Q12H [facility] Last Admin: 07/07/22 05:07 Dose: 40 mg Documented By: MARK Montelukast Sodium (Montelukast Sodium 10 Mg Tablet) 10 mg PO DAILY@0800 [facility] Last Admin: 07/07/22 10:26 Dose: 10 mg Documented By: ROSA ISELA Ondansetron HCl (Ondansetron Hcl 4 Mg/2 Ml Vial) 4 mg IVPUSH Q8H PRN PRN Reason: Nausea and Vomiting Pravastatin Sodium (Pravastatin Sodium 40 Mg Tablet) 40 mg PO DAILY@1999 [facility] Ropinirole HCl (Ropinirole Hcl 0.25 Mg Tablet) 0.25 mg PO DAILY@1999 [facility] Sodium Chloride (0.9 % Sodium Chloride Flush 3 Ml Syringe) 3 ml IVFLUSH QSHIFT [facility] Last Admin: 07/07/22 10:26 Dose: 3 ml Documented By: ROSA ISELA Tiotropium [place] (Tiotropium [place] 18 Mcg Cap.W.Dev) 1 puff INHALE RDAILY [facility] Last Admin: 07/07/22 10:00 Dose: Not Given Documented By: YARA Non-Admin Reason: See Note Labs CBC & Chem 7: 07/07/22 04:42 07/07/22 04:42 Labs: Laboratory Results - last 24 hr 07/06/22 07/06/22 07/06/22 15:56 15:56 15:56 MCV 91.4 MCH 28.9 MCHC 31.6 RDW 13.7 Plt Count 353 MPV 9.6 Immature Gran % (Auto) 0.9 H Neut % (Auto) 87.5 H Lymph % (Auto) 8.3 L [place] % (Auto) 3.2 Eos % (Auto) 0.0 Baso % (Auto) 0.1 Lymph # (Auto) 0.6 L [place] # (Auto) 0.2 Eos # (Auto) 0.0 Baso # (Auto) 0.0 Abs Immat Gran (auto) 0.06 H Absolute Neuts (auto) 6.0 Absolute Nucleated RBC 0.000 Nucleated RBC % (auto) 0.0 Smear Tech's Comments VERIFIED PT 11.5 INR 1.0 Anion Gap Estim Creat Clear Calc Estimated GFR Random Glucose Lactic Acid Lactic Acid F/U @ 2Hr Calcium Magnesium Total Bilirubin AST ALT Alkaline Phosphatase Troponin I High Sens B-Natriuretic Peptide Total Protein Albumin Influenza Type A (PCR) NEGATIVE Influenza Type B (PCR) NEGATIVE RSV RNA Qual (PCR) NEGATIVE SARS-CoV-2 RNA (RT-PCR) NEGATIVE 07/06/22 07/06/22 07/06/22 15:56 15:56 18:21 MCV MCH MCHC RDW Plt Count MPV Immature Gran % (Auto) Neut % (Auto) Lymph % (Auto) [place] % (Auto) Eos % (Auto) Baso % (Auto) Lymph # (Auto) [place] # (Auto) Eos # (Auto) Baso # (Auto) Abs Immat Gran (auto) Absolute Neuts (auto) Absolute Nucleated RBC Nucleated RBC % (auto) Smear Tech's Comments PT INR Anion Gap 14 Estim Creat Clear Calc 63.3 Estimated GFR > 60 Random Glucose 305 H Lactic Acid 3.3 H* Lactic Acid F/U @ 2Hr 1.4 Calcium 9.0 D Magnesium 1.6 Total Bilirubin 0.2 AST 25 ALT 26 Alkaline Phosphatase 83 Troponin I High Sens B-Natriuretic Peptide Total Protein 7.2 Albumin 3.7 Influenza Type A (PCR) Influenza Type B (PCR) RSV RNA Qual (PCR) SARS-CoV-2 RNA (RT-PCR) 07/07/22 07/07/22 07/07/22 02:11 02:11 04:42 MCV 91.7 MCH 28.9 MCHC 31.5 RDW 13.5 Plt Count 296 MPV 10.0 Immature Gran % (Auto) 1.6 H Neut % (Auto) 77.3 H Lymph % (Auto) 17.7 L [place] % (Auto) 3.4 Eos % (Auto) 0.0 Baso % (Auto) 0.0 Lymph # (Auto) 0.8 L [place] # (Auto) 0.2 Eos # (Auto) 0.0 Baso # (Auto) 0.0 Abs Immat Gran (auto) 0.07 H Absolute Neuts (auto) 3.5 Absolute Nucleated RBC 0.000 Nucleated RBC % (auto) 0.0 Smear Tech's Comments VERIFIED PT INR Anion Gap Estim Creat Clear Calc Estimated GFR Random Glucose Lactic Acid Lactic Acid F/U @ 2Hr Calcium Magnesium Total Bilirubin AST ALT Alkaline Phosphatase Troponin I High Sens 6.6 B-Natriuretic Peptide 163 H Total Protein Albumin Influenza Type A (PCR) Influenza Type B (PCR) RSV RNA Qual (PCR) SARS-CoV-2 RNA (RT-PCR) 07/07/22 04:42 MCV MCH MCHC RDW Plt Count MPV Immature Gran % (Auto) Neut % (Auto) Lymph % (Auto) [place] % (Auto) Eos % (Auto) Baso % (Auto) Lymph # (Auto) [place] # (Auto) Eos # (Auto) Baso # (Auto) Abs Immat Gran (auto) Absolute Neuts (auto) Absolute Nucleated RBC Nucleated RBC % (auto) Smear Tech's Comments PT INR Anion Gap 11 L Estim Creat Clear Calc 72.9 Estimated GFR > 60 Random Glucose 206 H Lactic Acid Lactic Acid F/U @ 2Hr Calcium 8.7 Magnesium Total Bilirubin AST ALT Alkaline Phosphatase Troponin I High Sens B-Natriuretic Peptide Total Protein Albumin Influenza Type A (PCR) Influenza Type B (PCR) RSV RNA Qual (PCR) SARS-CoV-2 RNA (RT-PCR) Assessment and Plan (1) Sepsis: Status: Acute (2) Acute exacerbation of chronic obstructive airways disease: Status: Acute (3) Atrial fibrillation with RVR: Status: Acute (4) Acute pneumonia: Status: Acute Plan 81-year-old female with past medical history of COPD presents to the hospital with persistent increased cough increased sputum production and dyspnea # sepsis secondary to pneumonia and COPD exacerbation CXR showing small infiltrate on the left side Continue IV antibiotics Pending follow cultures # acute hypoxic respiratory failure 2/2 acute COPD exacerbation Continue with Solu-Medrol DuoNeb p.r.n. as well as schedule monitor respiratory status Wean oxygen down as tolerated to baseline 2 L of oxygen # AFib with RVR Converted back to sinus rhythm Pending echocardiogram Start Cardizem 60 mg q.i.d. Still urged Eliquis 5 mg b.i.d. Cardiology input appreciated Continue to monitor on telemetry DVT prophylaxis: Eliquis The patient will need overnight hospital stay to continue treatment for sepsis, pneumonia requiring IV antibiotics as well as new AFib requiring further workup pending safe discharge plan Time Spent With Patient Time: Total time managing care of this patient today ____ minutes. Quality Stroke Does the patient have a stroke diagnosis?: No VTE Prior VTE?: No VTE Risk Level:: Medical - moderate - high VTE Device Contraindication: Treatment Not Indicated VTE Drug Contraindication: N/A - Med Ordered
[2022-07-07] MEDS: Apixaban 5 MG TABLET PO ×2 (13:47→20:56)
[2022-07-07] MEDS: dilTIAZem HCL 60 MG TABLET PO ×3 (13:48→20:56)
--- NOTE | 2022-07-07 15:51 | PC.NURSE ---
Pt is alert and oriented x4 but is hard of hearing. Pt admitted t rm [id number] with COPD exa. LS are dim throughout with intermittent dry cough. Pt is on 2L O2 via NC as PRN but is on continuous 2L )2 here Pt is standby assist OOB.
[2022-07-07] MEDS: rOPINIRole HCL 0.25 MG TABLET PO (20:56)
[2022-07-07] MEDS: Gabapentin 300 MG CAPSULE PO (20:56)
[2022-07-07] MEDS: Furosemide 20 MG TABLET PO (20:56)
[2022-07-07] MEDS: Pravastatin Sodium 40 MG TABLET PO (20:56)
[2022-07-07] MEDS: cefTRIAXone sodium 1 GM in 0.9 % Sodium Chloride 50 ML IV (21:11)
[2022-07-07] MEDS: guaiFENesin 100 MG/5 ML LIQUID PO (23:47)
[2022-07-08] VITALS (10 sets, daily range): BP systolic 125–146; BP diastolic 61–70; PULSE 68–90; RESP 18–24; TEMP 35.7–36.9; O2SAT 93–98
[2022-07-08] MEDS: methylPREDNISolone Sod Succ 40 MG/ML VIAL IVPUSH ×2 (05:30→18:20)
[2022-07-08] MEDS: guaiFENesin 100 MG/5 ML LIQUID PO ×2 (05:33→21:30)
[2022-07-08] MEDS: Benzonatate 100 MG CAPSULE 200 MG PO ×2 (05:33→21:30)
[2022-07-08 07:16] LABS: Hematocrit 33.2 % (37.0-47.0); Hemoglobin 10.6 g/dl (12.0-16.0); Mean Corpuscular HGB Conc 31.9 g/dl (31.0-35.0); Mean Corpuscular Hemoglobin 28.9 pg (27.0-33.0); Mean Corpuscular Volume 90.5 fL (80.0-98.0); Mean Platelet Volume 10.1 fL (9.4-12.3); Platelet Count 351 X10*3/uL (160-400); Red Blood Count 3.67 X10*6/uL (4.20-5.50); Red Cell Distribution Width 13.4 % (11.0-16.0); White Blood Count 9.6 X10*3/uL (4.8-10.8)
[2022-07-08 07:33] LABS: Anion Gap 10 (12-20); Blood Urea Nitrogen 11 mg/dL (9-16); Calcium 8.6 mg/dL (8.4-10.2); Carbon Dioxide 33 mmol/L (22-29); Chloride 94 mmol/L (96-108); Creatinine Clr Calc Pharmacy 76.8; Estimated Glomerular Filt Rate > 60; Glucose Random 147 mg/dL (60-115); Potassium 4.8 mmol/L (3.3-5.1); Sodium 132 mmol/L (135-145)
[2022-07-08] MEDS: Fluticasone/Vilanterol 100/25 BLST.W.DEV 1 PUFF INHALE (08:42)
[2022-07-08] MEDS: 0.9 % Sodium Chloride Flush 3 ML SYRINGE IVFLUSH ×3 (10:20→23:45)
[2022-07-08] MEDS: Montelukast Sodium 10 MG TABLET PO (10:20)
[2022-07-08] MEDS: dilTIAZem HCL CD 240 MG CAP.ER.DEG PO (10:20)
[2022-07-08] MEDS: Escitalopram Oxalate 10 MG TABLET PO (10:21)
[2022-07-08] MEDS: Famotidine 20 MG TABLET PO (10:21)
[2022-07-08] MEDS: Docusate Sodium 100 MG CAPSULE PO (10:21)
[2022-07-08] MEDS: Apixaban 5 MG TABLET PO ×2 (10:21→20:02)
[2022-07-08] MEDS: Ascorbic Acid 500 MG TABLET PO (10:21)
[2022-07-08] MEDS: Loratadine 10 MG TABLET PO (10:21)
--- NOTE | 2022-07-08 11:20 | P.PNCA_ITS ---
Subjective Subjective Date of Service: 07/08/22 Interval history: Denies any cardiac symptoms. Has lot of cough. Review of Systems Review of Systems Yes all other systems are reviewed and are negative Constitutional: Reports as per HPI Eyes: Reports as per HPI Reports as per HPI Cardiovascular: Reports as per HPI, Denies acrocyanosis, Denies cool extr emities, Denies chest pain, Denies leg edema, Denies lightheadedness, Denies palpitations and Denies dyspnea Respiratory: Reports as per HPI, Reports no additional respiratory complaints, Reports cough and Denies dyspnea Gastrointestinal: Reports as per HPI and Reports no additional gastrointestinal complaints Genitourinary: Reports as per HPI Musculoskeletal: Reports no additional musculoskeletal complaints and Reports as per HPI Skin/Breast: Reports system reviewed and no additional complaints, except as docu Reports system reviewed and no additional complaints, except as documented and Reports as per HPI Psychiatric: Reports no additional psychiatric complaints and Reports as per HPI Endocrine: Reports no additional endocrine complaints, Reports as per HPI and Denies palpitations Hematologic/Lymphatic: Reports no additional hematologic/lymphatic complaints and Reports as per HPI Allergic/Immunologic: Reports no additional allergic/immunologic complaints and Reports as per HPI Physical Exam Vital Signs: Last Vital Signs Temp 97.6 F 07/08/22 08:00 Pulse 89 07/08/22 08:01 Resp 18 07/08/22 08:01 BP 146/68 H 07/08/22 08:00 Pulse Ox 95 07/08/22 08:00 O2 Del Method 07/08/22 08:00 O2 Flow Rate 3 07/08/22 08:00 Oxygen Flow Rate 2 07/06/22 15:35 BMI result Body Mass Index 30.9 Const General: comfortable and no acute distress Orientation/consciousness: patient oriented x3 HEENT Other: Unremarkable Head: Yes normal to inspection Neck Neck: Yes normal visual inspection Chest Chest palpation & inspection: normal inspection of the chest Resp Auscultation: rhonchi, wheezes and diminished lung sounds Cardio Palpation: normal PMI Heart sounds: S1 normal heart sound present, S2 normal heart sound present, no gallops, no murmurs and no rubs GI Palpation (GI): Soft to palpation Back/Spine/Pelvis Other: unremarkable Skin General skin exam: no rashes or lesions noted Neuro General: patient oriented x3 Extrem General: Yes normal to inspection Psych Mental Status: mental status grossly normal Objective Labs and Meds Result diagrams: 07/08/22 06:17 07/08/22 06:17 Lab results: Laboratory Results - last 24 hr 07/08/22 07/08/22 06:17 06:17 WBC 9.6 RBC 3.67 L Hgb 10.6 L Hct 33.2 L MCV 90.5 MCH 28.9 MCHC 31.9 RDW 13.4 Plt Count 351 MPV 10.1 Absolute Nucleated RBC 0.000 Nucleated RBC % (auto) 0.0 Sodium 132 L Potassium 4.8 Chloride 94 L Carbon Dioxide 33 H Anion Gap 10 L BUN 11 Creatinine 0.57 Estim Creat Clear Calc 76.8 Estimated GFR > 60 Random Glucose 147 H Calcium 8.6 Progress Note: A&P Assessment and plan (1) Atrial fibrillation with RVR: Status: Acute (2) Acute exacerbation of chronic obstructive airways disease: Status: Acute Plan Earlier in the hospitalization, she had atrial fibrillation with rapid rate but that had converted to sinus. However, currently she is not on telemetry and hence not clear what the rhythm is. Probably sinus based on auscultation but we need to put her back on telemetry. Echocardiogram with LVEF of 50-55%. Moderately dilated left atrium. Moderate aortic valve calcification mild mitral calcification with mild pulmonary hypertension. For medications, keep her on diltiazem and Eliquis. Can follow-up in the clinic. Discussed with Dr. Sanon. Time Spent With Patient Time: Total time managing care of this patient today 30 minutes. Progress Note: Quality Stroke Does the patient have a stroke diagnosis?: No Procedures Date of Service Date of Service: 07/08/22
--- NOTE | 2022-07-08 13:55 | P.PNIM_ITS ---
Subjective Subjective Date of Service: 07/08/22 Interval History: cc: sob interval history: still sob Physical Exam Vital Signs: Vital Signs: Last Vital Signs Temp 98.3 F 07/08/22 11:58 Pulse 81 07/08/22 12:05 Resp 20 07/08/22 12:05 BP 142/64 H 07/08/22 11:58 Pulse Ox 94 07/08/22 11:58 O2 Del Method 07/08/22 11:58 O2 Flow Rate 3 07/08/22 11:58 Oxygen Flow Rate 2 07/06/22 15:35 BMI result Body Mass Index 30.9 General: AO X 3, no acute distress Resp: wheezing bilateral, accessory muscles used CVS: S1,S2,RRR GI: soft, non tender, non distended Neuro: motor grossly intact, alert Psych: appropriate affect, appropriate insight Objective Data Active Medications Acetaminophen (Acetaminophen 325 Mg Tablet) 650 mg PO Q6H PRN PRN Reason: Pain, Mild (Pain Scale 1-3) Last Admin: 07/07/22 17:28 Dose: 650 mg Documented By: CINDY Albuterol/Ipratropium (Albuterol/Iprat 2.5/0.5mg 3 Ml Ampul.Neb) 3 ml INHALE RQ4H PRN PRN Reason: Shortness of Breath/Wheezing Apixaban (Apixaban 5 Mg Tablet) 5 mg PO BID [facility] Last Admin: 07/08/22 10:21 Dose: 5 mg Documented By: LES Ascorbic Acid (Ascorbic Acid 500 Mg Tablet) 500 mg PO DAILY@0800 [facility] Last Admin: 07/08/22 10:21 Dose: 500 mg Documented By: LES Comments: BARCODE TORN Azithromycin (Azithromycin 500 Mg Tablet) 500 mg PO BEDTIME [facility] Last Admin: 07/07/22 20:56 Dose: 500 mg Documented By: ROLANDO Benzonatate (Benzonatate 100 Mg Capsule) 200 mg PO TID PRN PRN Reason: Cough Last Admin: 07/08/22 05:33 Dose: 200 mg Documented By: ROLANDO Albuterol Sulfate 2.5 mg/ (Ipratropium [place] 0.5 mg) 0 mg INHALE RQ4H WHILE AWAKE [facility] Last Admin: 07/08/22 12:03 Dose: 2.5 each Documented By: YARA Diltiazem HCl (Diltiazem Hcl Cd 240 Mg Cap.Er.Deg) 240 mg PO DAILY [facility]; Protocol Last Admin: 07/08/22 10:20 Dose: 240 mg Documented By: LES Docusate Sodium (Docusate Sodium 100 Mg Capsule) 100 mg PO DAILY PRN PRN Reason: Constipation Docusate Sodium (Docusate Sodium 100 Mg Capsule) 100 mg PO DAILY [facility] Last Admin: 07/08/22 10:21 Dose: 100 mg Documented By: LES Escitalopram Oxalate (Escitalopram Oxalate 10 Mg Tablet) 10 mg PO DAILY@0800 [facility] Last Admin: 07/08/22 10:21 Dose: 10 mg Documented By: LES Famotidine (Famotidine 20 Mg Tablet) 20 mg PO DAILY@0800 [facility] Last Admin: 07/08/22 10:21 Dose: 20 mg Documented By: LES Fluticasone Propionate (Fluticasone Propionate Nasal 16 Gm [place]) 2 spray NOSTRIL-B DAILY [facility] Last Admin: 07/07/22 10:28 Dose: 2 spray Documented By: ROSA ISELA Fluticasone/Vilanterol (Fluticasone/Vilanterol 100/25 Blst.W.Dev) 1 puff INHALE RDAILY [facility] Last Admin: 07/08/22 08:42 Dose: 1 puff Documented By: YARA Furosemide (Furosemide 20 Mg Tablet) 20 mg PO DAILY@1999 [facility]; Protocol Last Admin: 07/07/22 20:56 Dose: 20 mg Documented By: ROLANDO Gabapentin (Gabapentin 300 Mg Capsule) 300 mg PO DAILY@1999 [facility] Last Admin: 07/07/22 20:56 Dose: 300 mg Documented By: ROLANDO Guaifenesin (Guaifenesin 100 Mg/5 Ml Liquid) 5 ml PO Q6H PRN PRN Reason: Cough Last Admin: 07/08/22 05:33 Dose: 5 ml Documented By: ROLANDO Ceftriaxone Sodium 1 gm/ (Sodium Chloride) 50 mls @ 100 mls/hr IV Q24H [facility] Last Infusion: 07/07/22 22:15 Dose: 0 mls/hr Documented By: ROLANDO Loratadine (Loratadine 10 Mg Tablet) 10 mg PO DAILY@08 [facility] Last Admin: 07/08/22 10:21 Dose: 10 mg Documented By: LES Melatonin (Melatonin 3 Mg Tablet) 6 mg PO BEDTIME PRN PRN Reason: Insomnia Methylprednisolone Sodium Succinate (Methylprednisolone Sod Succ 40 Mg/Ml Vial) 40 mg IVPUSH Q12H [facility] Last Admin: 07/08/22 05:30 Dose: 40 mg Documented By: ROLANDO Montelukast Sodium (Montelukast Sodium 10 Mg Tablet) 10 mg PO DAILY@08 [facility] Last Admin: 07/08/22 10:20 Dose: 10 mg Documented By: LES Ondansetron HCl (Ondansetron Hcl 4 Mg/2 Ml Vial) 4 mg IVPUSH Q8H PRN PRN Reason: Nausea and Vomiting Pravastatin Sodium (Pravastatin Sodium 40 Mg Tablet) 40 mg PO DAILY@1999 [facility] Last Admin: 07/07/22 20:56 Dose: 40 mg Documented By: ROLANDO Ropinirole HCl (Ropinirole Hcl 0.25 Mg Tablet) 0.25 mg PO DAILY@1999 [facility] Last Admin: 07/07/22 20:56 Dose: 0.25 mg Documented By: ROLANDO Sodium Chloride (0.9 % Sodium Chloride Flush 3 Ml Syringe) 3 ml IVFLUSH QSHIFT [facility] Last Admin: 07/08/22 10:20 Dose: 3 ml Documented By: LES Tiotropium [place] (Tiotropium [place] 18 Mcg Cap.W.Dev) 1 puff INHALE RDAILY [facility] Last Admin: 07/08/22 08:42 Dose: 1 puff Documented By: YARA Labs CBC & Chem 7: 07/08/22 06:17 07/08/22 06:17 Labs: Laboratory Results - last 24 hr 07/08/22 07/08/22 06:17 06:17 MCV 90.5 MCH 28.9 MCHC 31.9 RDW 13.4 Plt Count 351 MPV 10.1 Absolute Nucleated RBC 0.000 Nucleated RBC % (auto) 0.0 Anion Gap 10 L Estim Creat Clear Calc 76.8 Estimated GFR > 60 Random Glucose 147 H Calcium 8.6 Microbiology Microbiology Results: Microbiology 07/06/22 18:45 Blood Culture - Preliminary Blood - Venous No growth after 24 hours. 07/06/22 18:34 Blood Culture - Preliminary Blood - Venous No growth after 24 hours. Assessment and Plan (1) Sepsis: Status: Acute (2) Acute exacerbation of chronic obstructive airways disease: Status: Acute (3) Atrial fibrillation with RVR: Status: Acute (4) Acute pneumonia: Status: Acute Plan 81-year-old female with past medical history of COPD presents to the hospital with persistent increased cough increased sputum production and dyspnea sepsis and acute on chronic hypoxic respiratory failure secondary to pneumonia and COPD with acute decompensation CXR showing small infiltrate on the left side Continue IV antibiotics, iv steroids, nebs, wean o2 new AFib with RVR Converted back to sinus rhythm change to cardizem 240mg daily continue eliquis monitor tele DVT prophylaxis: Eliquis reason for continued hospitalization:still sob, hypoxix above baseline Time Spent With Patient Time: Total time managing care of this patient today ____ minutes. Quality Stroke Does the patient have a stroke diagnosis?: No VTE Prior VTE?: No VTE Risk Level:: Medical - moderate - high VTE Device Contraindication: Treatment Not Indicated VTE Drug Contraindication: N/A - Med Ordered
[2022-07-08] MEDS: Furosemide 20 MG TABLET PO (20:01)
[2022-07-08] MEDS: cefTRIAXone sodium 1 GM in 0.9 % Sodium Chloride 50 ML IV (20:01)
[2022-07-08] MEDS: Pravastatin Sodium 40 MG TABLET PO (20:01)
[2022-07-08] MEDS: Gabapentin 300 MG CAPSULE PO (20:01)
[2022-07-08] MEDS: rOPINIRole HCL 0.25 MG TABLET PO (20:01)
[2022-07-08] MEDS: Azithromycin 500 MG TABLET PO (20:01)
[2022-07-09] VITALS (10 sets, daily range): BP systolic 133–163; BP diastolic 63–72; PULSE 75–102; RESP 16–20; TEMP 36.8–37.4; O2SAT 86–96
[2022-07-09] MEDS: methylPREDNISolone Sod Succ 40 MG/ML VIAL IVPUSH ×2 (05:48→16:58)
[2022-07-09 06:24] LABS: Hematocrit 32.8 % (37.0-47.0); Hemoglobin 10.4 g/dl (12.0-16.0); Mean Corpuscular HGB Conc 31.7 g/dl (31.0-35.0); Mean Corpuscular Hemoglobin 28.4 pg (27.0-33.0); Mean Corpuscular Volume 89.6 fL (80.0-98.0); Mean Platelet Volume 9.8 fL (9.4-12.3); Platelet Count 362 X10*3/uL (160-400); Red Blood Count 3.66 X10*6/uL (4.20-5.50); Red Cell Distribution Width 13.3 % (11.0-16.0); White Blood Count 9.9 X10*3/uL (4.8-10.8)
[2022-07-09 07:20] LABS: Anion Gap 14 (12-20); Blood Urea Nitrogen 15 mg/dL (9-16); Calcium 8.5 mg/dL (8.4-10.2); Carbon Dioxide 30 mmol/L (22-29); Chloride 92 mmol/L (96-108); Creatinine Clr Calc Pharmacy 75.4; Estimated Glomerular Filt Rate > 60; Glucose Fasting 165 mg/dL (60-99); Potassium 4.8 mmol/L (3.3-5.1); Sodium 131 mmol/L (135-145)
[2022-07-09] MEDS: Famotidine 20 MG TABLET PO (08:34)
[2022-07-09] MEDS: Escitalopram Oxalate 10 MG TABLET PO (08:34)
[2022-07-09] MEDS: Montelukast Sodium 10 MG TABLET PO (08:34)
[2022-07-09] MEDS: dilTIAZem HCL CD 240 MG CAP.ER.DEG PO (08:34)
[2022-07-09] MEDS: Docusate Sodium 100 MG CAPSULE PO (08:34)
[2022-07-09] MEDS: 0.9 % Sodium Chloride Flush 3 ML SYRINGE IVFLUSH ×3 (08:34→19:18)
[2022-07-09] MEDS: Ascorbic Acid 500 MG TABLET PO (08:34)
[2022-07-09] MEDS: Apixaban 5 MG TABLET PO ×2 (08:34→19:17)
[2022-07-09] MEDS: Loratadine 10 MG TABLET PO (08:34)
[2022-07-09] MEDS: Fluticasone Propionate Nasal 16 GM SPRAY 2 SPRAY NOSTRIL-B (08:38)
[2022-07-09] MEDS: Fluticasone/Vilanterol 100/25 BLST.W.DEV 1 PUFF INHALE (08:50)
--- NOTE | 2022-07-09 10:18 | HO.PM.IMPN ---
Subjective Subjective Date of Service: 07/09/22 Interval History: cc: sob interval history: still sob Physical Exam Vital Signs: Vital Signs: Last Vital Signs Temp 98.4 F 07/09/22 08:00 Pulse 82 07/09/22 08:41 Resp 16 07/09/22 08:41 BP 150/70 H 07/09/22 08:00 Pulse Ox 93 07/09/22 08:00 O2 Del Method 07/09/22 08:00 O2 Flow Rate 2 07/09/22 08:00 Oxygen Flow Rate 2 07/06/22 15:35 BMI result Body Mass Index 30.9 General: AO X 3, no acute distress Resp: wheezing bilateral, accessory muscles used CVS: S1,S2,RRR GI: soft, non tender, non distended Neuro: motor grossly intact, alert Psych: appropriate affect, appropriate insight Objective Data Active Medications Acetaminophen (Acetaminophen 325 Mg Tablet) 650 mg PO Q6H PRN PRN Reason: Pain, Mild (Pain Scale 1-3) Last Admin: 07/07/22 17:28 Dose: 650 mg Documented By: CINDY Albuterol/Ipratropium (Albuterol/Iprat 2.5/0.5mg 3 Ml Ampul.Neb) 3 ml INHALE RQ4H PRN PRN Reason: Shortness of Breath/Wheezing Apixaban (Apixaban 5 Mg Tablet) 5 mg PO BID [facility] Last Admin: 07/09/22 08:34 Dose: 5 mg Documented By: LES Ascorbic Acid (Ascorbic Acid 500 Mg Tablet) 500 mg PO DAILY@0800 [facility] Last Admin: 07/09/22 08:34 Dose: 500 mg Documented By: LES Azithromycin (Azithromycin 500 Mg Tablet) 500 mg PO BEDTIME [facility] Last Admin: 07/08/22 20:01 Dose: 500 mg Documented By: NADIA Benzonatate (Benzonatate 100 Mg Capsule) 200 mg PO TID PRN PRN Reason: Cough Last Admin: 07/08/22 21:30 Dose: 200 mg Documented By: NADIA Albuterol Sulfate 2.5 mg/ (Ipratropium [place] 0.5 mg) 0 mg INHALE RQ4H WHILE AWAKE [facility] Last Admin: 07/09/22 08:40 Dose: 2.5 each Documented By: JOSE MARTIN Diltiazem HCl (Diltiazem Hcl Cd 240 Mg Cap.Er.Deg) 240 mg PO DAILY [facility]; Protocol Last Admin: 07/09/22 08:34 Dose: 240 mg Documented By: LES Docusate Sodium (Docusate Sodium 100 Mg Capsule) 100 mg PO DAILY PRN PRN Reason: Constipation Docusate Sodium (Docusate Sodium 100 Mg Capsule) 100 mg PO DAILY [facility] Last Admin: 07/09/22 08:34 Dose: 100 mg Documented By: LES Escitalopram Oxalate (Escitalopram Oxalate 10 Mg Tablet) 10 mg PO DAILY@0800 [facility] Last Admin: 07/09/22 08:34 Dose: 10 mg Documented By: LES Famotidine (Famotidine 20 Mg Tablet) 20 mg PO DAILY@0800 [facility] Last Admin: 07/09/22 08:34 Dose: 20 mg Documented By: LES Fluticasone Propionate (Fluticasone Propionate Nasal 16 Gm [place]) 2 spray NOSTRIL-B DAILY [facility] Last Admin: 07/09/22 08:38 Dose: 2 spray Documented By: LES Fluticasone/Vilanterol (Fluticasone/Vilanterol 100/25 Blst.W.Dev) 1 puff INHALE RDAILY [facility] Last Admin: 07/09/22 08:50 Dose: 1 puff Documented By: JOSE MARTIN Furosemide (Furosemide 20 Mg Tablet) 20 mg PO DAILY@1999 [facility]; Protocol Last Admin: 07/08/22 20:01 Dose: 20 mg Documented By: NADIA Gabapentin (Gabapentin 300 Mg Capsule) 300 mg PO DAILY@1999 [facility] Last Admin: 07/08/22 20:01 Dose: 300 mg Documented By: NADIA Guaifenesin (Guaifenesin 100 Mg/5 Ml Liquid) 5 ml PO Q6H PRN PRN Reason: Cough Last Admin: 07/08/22 21:30 Dose: 5 ml Documented By: NADIA Ceftriaxone Sodium 1 gm/ (Sodium Chloride) 50 mls @ 100 mls/hr IV Q24H [facility] Last Infusion: 07/08/22 20:32 Dose: 0 mls/hr Documented By: NADIA Loratadine (Loratadine 10 Mg Tablet) 10 mg PO DAILY@0800 [facility] Last Admin: 07/09/22 08:34 Dose: 10 mg Documented By: LES Melatonin (Melatonin 3 Mg Tablet) 6 mg PO BEDTIME PRN PRN Reason: Insomnia Methylprednisolone Sodium Succinate (Methylprednisolone Sod Succ 40 Mg/Ml Vial) 40 mg IVPUSH Q12H [facility] Last Admin: 07/09/22 05:48 Dose: 40 mg Documented By: ELVIRA Montelukast Sodium (Montelukast Sodium 10 Mg Tablet) 10 mg PO DAILY@0800 [facility] Last Admin: 07/09/22 08:34 Dose: 10 mg Documented By: LES Ondansetron HCl (Ondansetron Hcl 4 Mg/2 Ml Vial) 4 mg IVPUSH Q8H PRN PRN Reason: Nausea and Vomiting Pravastatin Sodium (Pravastatin Sodium 40 Mg Tablet) 40 mg PO DAILY@1999 [facility] Last Admin: 07/08/22 20:01 Dose: 40 mg Documented By: NADIA Ropinirole HCl (Ropinirole Hcl 0.25 Mg Tablet) 0.25 mg PO DAILY@1999 [facility] Last Admin: 07/08/22 20:01 Dose: 0.25 mg Documented By: NADIA Sodium Chloride (0.9 % Sodium Chloride Flush 3 Ml Syringe) 3 ml IVFLUSH QSHIFT [facility] Last Admin: 07/09/22 08:34 Dose: 3 ml Documented By: LES Tiotropium [place] (Tiotropium [place] 18 Mcg Cap.W.Dev) 1 puff INHALE RDAILY [facility] Last Admin: 07/09/22 08:50 Dose: 1 puff Documented By: ULRICC Labs CBC & Chem 7: 07/09/22 05:39 07/09/22 05:39 Labs: Laboratory Results - last 24 hr 07/09/22 07/09/22 05:39 05:39 MCV 89.6 MCH 28.4 MCHC 31.7 RDW 13.3 Plt Count 362 MPV 9.8 Absolute Nucleated RBC 0.000 Nucleated RBC % (auto) 0.0 Anion Gap 14 Estim Creat Clear Calc 75.4 Estimated GFR > 60 Fasting Glucose 165 H Calcium 8.5 Microbiology Microbiology Results: Microbiology 07/06/22 18:45 Blood Culture - Preliminary Blood - Venous No growth after 48 hours. 07/06/22 18:34 Blood Culture - Preliminary Blood - Venous No growth after 48 hours. Assessment and Plan (1) Sepsis: Status: Acute (2) Acute exacerbation of chronic obstructive airways disease: Status: Acute (3) Atrial fibrillation with RVR: Status: Acute (4) Acute pneumonia: Status: Acute Plan 81-year-old female with past medical history of COPD presents to the hospital with persistent increased cough increased sputum production and dyspnea sepsis and acute on chronic hypoxic respiratory failure secondary to pneumonia and COPD with acute decompensation CXR showing small infiltrate on the left side still with sob Continue IV antibiotics, iv steroids, nebs, wean o2 new AFib with RVR Converted back to sinus rhythm changed to cardizem 240mg daily continue eliquis monitor tele DVT prophylaxis: Eliquis reason for continued hospitalization:still sob, Time Spent With Patient Time: Total time managing care of this patient today ____ minutes. Quality Stroke Does the patient have a stroke diagnosis?: No VTE Prior VTE?: No VTE Risk Level:: Medical - moderate - high VTE Device Contraindication: Treatment Not Indicated VTE Drug Contraindication: N/A - Med Ordered
[2022-07-09] MEDS: Acetaminophen 325 MG TABLET 650 MG PO (12:59)
[2022-07-09] MEDS: guaiFENesin 100 MG/5 ML LIQUID PO (13:00)
[2022-07-09] MEDS: Benzonatate 100 MG CAPSULE 200 MG PO (13:00)
[2022-07-09] MEDS: rOPINIRole HCL 0.25 MG TABLET PO (19:17)
[2022-07-09] MEDS: Furosemide 20 MG TABLET PO (19:17)
[2022-07-09] MEDS: Pravastatin Sodium 40 MG TABLET PO (19:18)
[2022-07-09] MEDS: Azithromycin 500 MG TABLET PO (19:18)
[2022-07-09] MEDS: Gabapentin 300 MG CAPSULE PO (19:18)
[2022-07-09] MEDS: cefTRIAXone sodium 1 GM in 0.9 % Sodium Chloride 50 ML IV (19:19)
[2022-07-10] MEDS: guaiFENesin 100 MG/5 ML LIQUID PO ×4 (01:10→21:35)
[2022-07-10 03:48] VITALS: BP 148/67; PULSE 69; RESP 18; TEMP 36.7; O2SAT 95
[2022-07-10] MEDS: methylPREDNISolone Sod Succ 40 MG/ML VIAL IVPUSH ×2 (05:30→17:14)
[2022-07-10 06:35] LABS: Hematocrit 33.7 % (37.0-47.0); Hemoglobin 11.1 g/dl (12.0-16.0); Mean Corpuscular HGB Conc 32.9 g/dl (31.0-35.0); Mean Corpuscular Hemoglobin 29.1 pg (27.0-33.0); Mean Corpuscular Volume 88.5 fL (80.0-98.0); Mean Platelet Volume 9.8 fL (9.4-12.3); Platelet Count 401 X10*3/uL (160-400); Red Blood Count 3.81 X10*6/uL (4.20-5.50); Red Cell Distribution Width 13.2 % (11.0-16.0); White Blood Count 9.3 X10*3/uL (4.8-10.8)
[2022-07-10 06:53] LABS: Anion Gap 13 (12-20); Blood Urea Nitrogen 17 mg/dL (9-16); Calcium 8.7 mg/dL (8.4-10.2); Carbon Dioxide 33 mmol/L (22-29); Chloride 91 mmol/L (96-108); Creatinine Clr Calc Pharmacy 71.7; Estimated Glomerular Filt Rate > 60; Glucose Fasting 158 mg/dL (60-99); Potassium 4.8 mmol/L (3.3-5.1); Sodium 132 mmol/L (135-145)
[2022-07-10] MEDS: Fluticasone/Vilanterol 100/25 BLST.W.DEV 1 PUFF INHALE (08:42)
[2022-07-10 08:45] VITALS: PULSE 98; RESP 20; O2SAT 95
[2022-07-10] MEDS: 0.9 % Sodium Chloride Flush 3 ML SYRINGE IVFLUSH ×3 (08:52→23:53)
[2022-07-10] MEDS: Escitalopram Oxalate 10 MG TABLET PO (08:52)
[2022-07-10] MEDS: dilTIAZem HCL CD 240 MG CAP.ER.DEG PO (08:52)
[2022-07-10] MEDS: Apixaban 5 MG TABLET PO ×2 (08:52→19:25)
[2022-07-10] MEDS: Famotidine 20 MG TABLET PO (08:52)
[2022-07-10] MEDS: Benzonatate 100 MG CAPSULE 200 MG PO ×2 (08:52→19:35)
[2022-07-10] MEDS: Loratadine 10 MG TABLET PO (08:52)
[2022-07-10] MEDS: Montelukast Sodium 10 MG TABLET PO (08:52)
[2022-07-10] MEDS: Docusate Sodium 100 MG CAPSULE PO (08:52)
[2022-07-10] MEDS: Ascorbic Acid 500 MG TABLET PO (08:52)
[2022-07-10] MEDS: Fluticasone Propionate Nasal 16 GM SPRAY 2 SPRAY NOSTRIL-B (08:53)
--- NOTE | 2022-07-10 09:59 | HO.PM.IMPN ---
Subjective Subjective Date of Service: 07/10/22 Interval History: cc: sob interval history: still sob Physical Exam Vital Signs: Vital Signs: Last Vital Signs Temp 98.0 F 07/10/22 03:48 Pulse 98 07/10/22 08:45 Resp 20 07/10/22 08:45 BP 148/67 H 07/10/22 03:48 Pulse Ox 95 07/10/22 03:48 O2 Del Method 07/10/22 03:48 O2 Flow Rate 1.5 07/10/22 03:48 Oxygen Flow Rate 2 07/06/22 15:35 BMI result Body Mass Index 30.9 General: AO X 3, no acute distress Resp: wheezing bilateral, accessory muscles used CVS: S1,S2,RRR GI: soft, non tender, non distended Neuro: motor grossly intact, alert Psych: appropriate affect, appropriate insight Objective Data Active Medications Acetaminophen (Acetaminophen 325 Mg Tablet) 650 mg PO Q6H PRN PRN Reason: Pain, Mild (Pain Scale 1-3) Last Admin: 07/09/22 12:59 Dose: 650 mg Documented By: LES Apixaban (Apixaban 5 Mg Tablet) 5 mg PO BID [facility] Last Admin: 07/10/22 08:52 Dose: 5 mg Documented By: LES Ascorbic Acid (Ascorbic Acid 500 Mg Tablet) 500 mg PO DAILY@0800 [facility] Last Admin: 07/10/22 08:52 Dose: 500 mg Documented By: LES Azithromycin (Azithromycin 500 Mg Tablet) 500 mg PO BEDTIME [facility] Last Admin: 07/09/22 19:18 Dose: 500 mg Documented By: SANDRA Benzonatate (Benzonatate 100 Mg Capsule) 200 mg PO TID PRN PRN Reason: Cough Last Admin: 07/10/22 08:52 Dose: 200 mg Documented By: LES Albuterol Sulfate 2.5 mg/ (Ipratropium [place] 0.5 mg) 0 mg INHALE RQ4H WHILE AWAKE [facility] Last Admin: 07/10/22 08:42 Dose: 2.5 each Documented By: DANIEL Albuterol Sulfate 2.5 mg/ (Ipratropium [place] 0.5 mg) 0 mg INHALE RQ4H PRN PRN Reason: Shortness of Breath/Wheezing Diltiazem HCl (Diltiazem Hcl Cd 240 Mg Cap.Er.Deg) 240 mg PO DAILY [facility]; Protocol Last Admin: 07/10/22 08:52 Dose: 240 mg Documented By: LES Docusate Sodium (Docusate Sodium 100 Mg Capsule) 100 mg PO DAILY PRN PRN Reason: Constipation Docusate Sodium (Docusate Sodium 100 Mg Capsule) 100 mg PO DAILY [facility] Last Admin: 07/10/22 08:52 Dose: 100 mg Documented By: LES Escitalopram Oxalate (Escitalopram Oxalate 10 Mg Tablet) 10 mg PO DAILY@0800 [facility] Last Admin: 07/10/22 08:52 Dose: 10 mg Documented By: LES Famotidine (Famotidine 20 Mg Tablet) 20 mg PO DAILY@08 [facility] Last Admin: 07/10/22 08:52 Dose: 20 mg Documented By: LES Fluticasone Propionate (Fluticasone Propionate Nasal 16 Gm [place]) 2 spray NOSTRIL-B DAILY [facility] Last Admin: 07/10/22 08:53 Dose: 2 spray Documented By: LES Fluticasone/Vilanterol (Fluticasone/Vilanterol 100/25 Blst.W.Dev) 1 puff INHALE RDAILY [facility] Last Admin: 07/10/22 08:42 Dose: 1 puff Documented By: DANIEL Furosemide (Furosemide 20 Mg Tablet) 20 mg PO DAILY@1999 [facility]; Protocol Last Admin: 07/09/22 19:17 Dose: 20 mg Documented By: SANDRA Gabapentin (Gabapentin 300 Mg Capsule) 300 mg PO DAILY@1999 [facility] Last Admin: 07/09/22 19:18 Dose: 300 mg Documented By: SANDRA Guaifenesin (Guaifenesin 100 Mg/5 Ml Liquid) 5 ml PO Q6H PRN PRN Reason: Cough Last Admin: 07/10/22 08:52 Dose: 5 ml Documented By: LES Ceftriaxone Sodium 1 gm/ (Sodium Chloride) 50 mls @ 100 mls/hr IV Q24H [facility] Last Infusion: 07/09/22 20:10 Dose: 0 mls/hr Documented By: SANDRA Loratadine (Loratadine 10 Mg Tablet) 10 mg PO DAILY@0800 [facility] Last Admin: 07/10/22 08:52 Dose: 10 mg Documented By: LES Melatonin (Melatonin 3 Mg Tablet) 6 mg PO BEDTIME PRN PRN Reason: Insomnia Methylprednisolone Sodium Succinate (Methylprednisolone Sod Succ 40 Mg/Ml Vial) 40 mg IVPUSH Q12H [facility] Last Admin: 07/10/22 05:30 Dose: 40 mg Documented By: SANDRA Montelukast Sodium (Montelukast Sodium 10 Mg Tablet) 10 mg PO DAILY@0800 [facility] Last Admin: 07/10/22 08:52 Dose: 10 mg Documented By: LES Ondansetron HCl (Ondansetron Hcl 4 Mg/2 Ml Vial) 4 mg IVPUSH Q8H PRN PRN Reason: Nausea and Vomiting Pravastatin Sodium (Pravastatin Sodium 40 Mg Tablet) 40 mg PO DAILY@1999 [facility] Last Admin: 07/09/22 19:18 Dose: 40 mg Documented By: SANDRA Ropinirole HCl (Ropinirole Hcl 0.25 Mg Tablet) 0.25 mg PO DAILY@1999 [facility] Last Admin: 07/09/22 19:17 Dose: 0.25 mg Documented By: SANDRA Sodium Chloride (0.9 % Sodium Chloride Flush 3 Ml Syringe) 3 ml IVFLUSH QSHIFT [facility] Last Admin: 07/10/22 08:52 Dose: 3 ml Documented By: LES Tiotropium [place] (Tiotropium [place] 18 Mcg Cap.W.Dev) 1 puff INHALE RDAILY [facility] Last Admin: 07/10/22 08:42 Dose: 1 puff Documented By: BRIGITTEIB Labs 07/10/22 05:58 07/10/22 05:58 Labs: Laboratory Results - last 24 hr 07/10/22 07/10/22 05:58 05:58 MCV 88.5 MCH 29.1 MCHC 32.9 RDW 13.2 Plt Count 401 H MPV 9.8 Absolute Nucleated RBC 0.000 Nucleated RBC % (auto) 0.0 Anion Gap 13 Estim Creat Clear Calc 71.7 Estimated GFR > 60 Fasting Glucose 158 H Calcium 8.7 Assessment and Plan (1) Sepsis: Status: Acute (2) Acute exacerbation of chronic obstructive airways disease: Status: Acute (3) Atrial fibrillation with RVR: Status: Acute (4) Acute pneumonia: Status: Acute Plan 81-year-old female with past medical history of COPD presents to the hospital with persistent increased cough increased sputum production and dyspnea sepsis and acute on chronic hypoxic respiratory failure secondary to pneumonia and COPD with acute decompensation CXR showing small infiltrate on the left side, follow up repeat still with sob Continue IV antibiotics, iv steroids, nebs, wean o2 new AFib with RVR Converted back to sinus rhythm changed to cardizem 240mg daily continue eliquis monitor tele DVT prophylaxis: Eliquis reason for continued hospitalization:still sob, Time Spent With Patient Time: Total time managing care of this patient today ____ minutes. Quality Stroke Does the patient have a stroke diagnosis?: No VTE Prior VTE?: No VTE Risk Level:: Medical - moderate - high VTE Device Contraindication: Treatment Not Indicated VTE Drug Contraindication: N/A - Med Ordered
[2022-07-10 11:55] VITALS: BP 151/67; PULSE 82; RESP 19; TEMP 36.6; O2SAT 93
[2022-07-10 15:54] VITALS: BP 140/68; PULSE 79; RESP 18; TEMP 36.6; O2SAT 95
[2022-07-10] MEDS: cefTRIAXone sodium 1 GM in 0.9 % Sodium Chloride 50 ML IV (19:23)
[2022-07-10] MEDS: Furosemide 20 MG TABLET PO (19:24)
[2022-07-10] MEDS: Azithromycin 500 MG TABLET PO (19:24)
[2022-07-10] MEDS: Gabapentin 300 MG CAPSULE PO (19:25)
[2022-07-10] MEDS: rOPINIRole HCL 0.25 MG TABLET PO (19:25)
[2022-07-10] MEDS: Pravastatin Sodium 40 MG TABLET PO (19:26)
[2022-07-10 19:37] VITALS: BP 164/73; PULSE 78; RESP 18; TEMP 36.7; O2SAT 98
[2022-07-10 23:34] VITALS: BP 150/68; PULSE 88; RESP 18; TEMP 36.8; O2SAT 94
[2022-07-11 04:00] VITALS: BP 156/72; PULSE 86; RESP 18; TEMP 36.9; O2SAT 93
[2022-07-11] MEDS: methylPREDNISolone Sod Succ 40 MG/ML VIAL IVPUSH (05:44)
[2022-07-11 08:00] VITALS: BP 161/73; PULSE 76; RESP 18; TEMP 36.3; O2SAT 92
[2022-07-11 09:10] VITALS: PULSE 72; RESP 18; O2SAT 92
[2022-07-11] MEDS: Fluticasone/Vilanterol 100/25 BLST.W.DEV 1 PUFF INHALE (09:22)
[2022-07-11] MEDS: 0.9 % Sodium Chloride Flush 3 ML SYRINGE IVFLUSH (09:24)
[2022-07-11] MEDS: Montelukast Sodium 10 MG TABLET PO (09:25)
[2022-07-11] MEDS: Ascorbic Acid 500 MG TABLET PO (09:25)
[2022-07-11] MEDS: Famotidine 20 MG TABLET PO (09:25)
[2022-07-11] MEDS: Escitalopram Oxalate 10 MG TABLET PO (09:25)
[2022-07-11] MEDS: Loratadine 10 MG TABLET PO (09:26)
[2022-07-11] MEDS: Apixaban 5 MG TABLET PO (09:26)
[2022-07-11] MEDS: dilTIAZem HCL CD 240 MG CAP.ER.DEG PO (09:26)
[2022-07-11] MEDS: Docusate Sodium 100 MG CAPSULE PO (09:27)
[2022-07-11] MEDS: Fluticasone Propionate Nasal 16 GM SPRAY 2 SPRAY NOSTRIL-B (09:27)
--- NOTE | 2022-07-11 10:00 | PM.DS ---
DS: Providers Provider Date of Service: 07/11/22 Date of admission: 07/06/22 23:34 Primary care physician: Lizandro Gibbs MD Consults: 07/07/22 01:49 Consult to Cardiology Routine Consulting Provider: Marek Deluna Reason for consultation: new onset A fib Has provider been notified: No DS: Diagnosis Discharge Diagnosis (1) Sepsis: Status: Acute (2) Acute exacerbation of chronic obstructive airways disease: Status: Acute (3) Atrial fibrillation with RVR: Status: Acute (4) Acute pneumonia: Status: Acute DS: Summary Hospital Course Hospital Course: from initial hpi: 81-year-old female with past medical history of COPD, on baseline 2 L of oxygen, hypertension, statin, restless leg syndrome, presents to the hospital with complaints of shortness of breath, persistent worsening cough and increased sputum production.? She was seen at [facility] and was told that she is positive for adenovirus and coronavirus .? Patient was sent home with azithromycin prednisone and cough medication but reports that her symptoms got worse and have not improved.? Patient uses 2 L of oxygen at baseline and has had frequent hospitalizations in the past. ? Patient denies any fever no chills, no nausea or vomiting, no abdominal pain, no diarrhea or constipation, no urinary symptoms and no lower extremity edema.? ?on arrival to the ED patient found to have O2 of 88% on her, patient is currently on 3 L satting 94%. ? patient also noted to be tachycardic with a heart rate in the 150 seems to be AFib on EKG, respiratory rate of 30, blood pressure stable Labs are? significant for lactic acid of 3.3, improved after IV fluids, COVID-19, RSV as well as influenza negative ?EKG showed AFib with RVR ?chest x-ray showing superimposed acute disease at the left base hospital course: Patient was admitted for sepsis and acute on chronic hypoxic respiratory failure secondary to pneumonia and COPD with acute decompensation. She was treated with IV ceftriaxone and p.o. azithromycin. She was given IV steroids and bronchodilators. She was able to be weaned down to her baseline 2 L home oxygen. She will be transitioned to 5 more days of p.o. prednisone and azithromycin. Course was complicated by new onset atrial fibrillation with rapid ventricular response. She was treated with diltiazem drip and then converted to 240 mg daily she was also started on apixaban. Patient converted spontaneously back to normal sinus rhythm. Patient is feeling much better will be discharged home. Time Spent with Patient Time attestation: Total time managing care of this patient today ____ minutes. Discharge coordination time: Greater than 30 minutes Quality: Safe Use of Opioids Does Pt have an Active Cancer Diagnosis on the Problem List?: No Quality: Stroke Does the patient have a stroke diagnosis?: No Physical Exam Vital Signs: Vital Signs: Last Vital Signs Temp 97.4 F 07/11/22 08:00 Pulse 72 07/11/22 09:10 Resp 18 07/11/22 09:10 BP 161/73 H 07/11/22 08:00 Pulse Ox 92 07/11/22 08:00 O2 Del Method 07/11/22 08:00 O2 Flow Rate 2.0 07/11/22 08:00 Oxygen Flow Rate 2 07/06/22 15:35 BMI result Body Mass Index 30.9 General: AO X 3, no acute distress Resp: wheezing bilateral, accessory muscles used CVS: S1,S2,RRR GI: soft, non tender, non distended Neuro: motor grossly intact, alert Psych: appropriate affect, appropriate insight DS: Data Data Completed and Pending Labs on day of discharge: Preliminary micro results at discharge 07/06/22 18:45 Blood Culture - Preliminary Blood - Venous No growth after 48 hours. 07/06/22 18:34 Blood Culture - Preliminary Blood - Venous No growth after 48 hours. Discharge Plan Discharge Anticipated Discharge Date/Time: 07/11/22 09:53 Patient Disposition: Home, Self-Care Discharge Diagnosis: pna, copd Referrals: Lizandro Gibbs MD [Primary Care Provider] - 1 Week Discharge Medications: New azithromycin 500 mg Tablet 500 mg PO BEDTIME Qty: 5 0RF Eliquis 5 mg Tablet 5 mg PO BID Qty: 60 0RF diltiazem HCl 240 mg Capsule,Extended Release 24hr 240 mg PO DAILY Qty: 30 0RF Protocol: Hold for SBP/HR < HOLD for SBP < : 90 HOLD for HR < : 60 prednisone 20 mg tablet 40 mg PO DAILY Qty: 10 0RF Continued albuterol sulfate [ProAir HFA] 90 mcg/actuation HFA aerosol inhaler 2 puff inhalation Q4-6H PRN (Reason: shortness of breath or wheezing) Qty: 8.5 0RF loratadine 10 mg Tablet 10 mg PO DAILY@0800 guaifenesin 400 mg Tablet 400 mg PO DAILY@0800 gabapentin 300 mg capsule 300 mg PO DAILY@2000 montelukast 10 mg tablet 10 mg PO DAILY@0800 furosemide [Lasix] 20 mg tablet 20 mg PO DAILY@2000 fluticasone propionate 50 mcg/actuation spray,suspension 2 spray intranasal DAILY 30 Days Qty: 15.8 11RF albuterol sulfate 2.5 mg /3 mL (0.083 %) solution for nebulization 2.5 mg inhalation Q4-6H PRN (Reason: Wheezing) famotidine 20 mg tablet 20 mg PO DAILY@0800 pravastatin 40 mg tablet 40 mg PO DAILY@1999 ropinirole 0.25 mg tablet 0.25 mg PO DAILY@1999 citalopram 10 mg tablet 20 mg PO DAILY@0800 Spiriva with HandiHaler 18 mcg capsule, w/inhalation device 1 cap inhalation DAILY 30 Days Qty: 30 11RF fluticasone propion-salmeterol [Wixela Inhub] 250-50 mcg/dose blister with device 1 ea inhalation BID 30 Days Qty: 60 11RF lisinopril 10 mg tablet 10 mg PO DAILY@0800 calcium citrate 250 mg calcium tablet 600 mg PO BID@0800,1999 docusate sodium [Colace] 100 mg capsule 100 mg PO DAILY ascorbic acid (vitamin C) 500 mg capsule 500 mg PO DAILY@0800 turmeric root extract 500 mg capsule 500 mg PO DAILY@0800 Discharge Orders: Discharge Order (Routine); Ordered 07/11/22 Ordered By: Mitchell Sanon Diet: Advance to usual diet Activity on Discharge: As tolerated Stand Alone Forms: Patient Portal Discharge page Care Plan Goals: recovery Health Concerns: afib, copd, pna Plan of Treatment: meds as prescribed Assessment: see above
--- NOTE | 2022-07-11 11:42 | MHC.CM.PN ---
PT CLEARED TO DC HOME TODAY WITH NO SERVICES DAUGHTER TO TRANSPORT
[2022-07-11 12:00] VITALS: BP 140/63; PULSE 81; RESP 18; TEMP 36.3; O2SAT 93
--- NOTE | 2022-07-11 13:42 | W.MHC.F2F ---
Service Date Service Date: 07/11/22 Encounter Date of encounter: 07/11/22 Reasons for Services Signs and symptoms assessed: weakness Reason for nursing home: medication management, medication treatment and teach disease management Homebound: Leaving the home is medically contraindicated at this time without the asist of a device and/or another person due th the listed conditions above and below. Reason homebound: unsteady gait / fall risk Certification: Based on the above findings, I certify that this patient is confined to the home and needs intermittent nursing home care, physical therapy and/or speech therapy, or continues to need occupational therapy. The patient is under my care, and I have initiated the establishment of the plan of care. The patient will be followed by a physician who will periodically review the plan of care. Time Spent With Patient Time: Total time managing care of this patient today ____ minutes.
== END 2022-07-11 14:00 | disposition home health service (06) | DRG 193 ==
LOC: HO.ED 18:16 → HO.EDOVER 23:43 → HO.S3 07-07 12:53
PROVIDERS: Physician Assistant Medical; Student in an Organized Health Care Education/Training Program; Admitting Provider Internal Medicine; Emergency Provider Internal Medicine; PCP Internal Medicine; Visit Provider Internal Medicine
DX: J18.9 Pneumonia, unspecified organism (principal); J96.21 Acute and chronic respiratory failure with hypoxia; J44.0 Chronic obstructive pulmonary disease with (acute) lower respiratory infection; J44.1 Chronic obstructive pulmonary disease with (acute) exacerbation; Z20.822 Contact with and (suspected) exposure to COVID-19; Z79.01 Long term (current) use of anticoagulants; Z79.51 Long term (current) use of inhaled steroids; Z79.899 Other long term (current) drug therapy; Z99.81 Dependence on supplemental oxygen; I48.91 Unspecified atrial fibrillation
CPT/HCPCS: 0241U; 36415; 71045; 71046; 80048; 80053; 83605; 83735; 83880; 84484; 85025; 85027; 85610; 87040; 93005; 93306; 94640; 97116; 97162; 99285; J0696; J1650; J2920; J2930; J3475; Q9957

== ENCOUNTER → 2022-07-28 14:59 | Outpatient (REF) | payer MEDICARE, SELFPAY ==
--- NOTE | 2022-07-28 15:02 | HM_ITS ---
Conclusion: 1. Patient was monitored for total period of 2 days and 19 hours 2. Baseline rhythm was normal sinus with average heart of 72 beats per minute 3. No significant pauses or bradycardia noted 4. Total of 4661 PACs accounting for 2.3% of total beats account for frequent PACs 5. 6 SVT events with fastest at 133 beats per minute longest at 12 beats per minute 6. Patient reported to events that correlated with sinus rhythm MTDD
== END ==
LOC: HO.CARD 14:59
PROVIDERS: PCP Internal Medicine; Visit Provider Internal Medicine
DX: I48.91 Unspecified atrial fibrillation (principal)
CPT/HCPCS: 93242

== ENCOUNTER → 2022-08-04 11:02 | Outpatient (BNVA) | payer MEDICARE, SELFPAY | PROVIDERS: PCP Internal Medicine; Visit Provider Hospitalist | DX: J41.1 Mucopurulent chronic bronchitis (principal); J96.11 Chronic respiratory failure with hypoxia; J01.90 Acute sinusitis, unspecified; R05.3 Chronic cough | CPT/HCPCS: 99212 ==

== ENCOUNTER → 2022-08-13 14:55 | Outpatient (BNVA) | payer MEDICARE, SELFPAY | PROVIDERS: PCP Internal Medicine; Referring Provider Internal Medicine; Visit Provider Internal Medicine | DX: I48.0 Paroxysmal atrial fibrillation (principal); I35.9 Nonrheumatic aortic valve disorder, unspecified; I34.81 Nonrheumatic mitral (valve) annulus calcification; I27.20 Pulmonary hypertension, unspecified; I10 Essential (primary) hypertension; J44.9 Chronic obstructive pulmonary disease, unspecified; Z79.01 Long term (current) use of anticoagulants; Z99.81 Dependence on supplemental oxygen | CPT/HCPCS: 99212 ==

== ENCOUNTER → 2022-09-22 15:16 | Outpatient (BNVA) | payer MEDICARE, SELFPAY | PROVIDERS: PCP Internal Medicine; Visit Provider Hospitalist | DX: J41.1 Mucopurulent chronic bronchitis (principal); J96.11 Chronic respiratory failure with hypoxia; R05.3 Chronic cough; Z99.81 Dependence on supplemental oxygen | CPT/HCPCS: 99212 ==

== ENCOUNTER → 2022-11-19 15:48 | Outpatient (BNVA) | payer MEDICARE, SELFPAY | PROVIDERS: PCP Internal Medicine; Visit Provider Hospitalist | DX: J41.1 Mucopurulent chronic bronchitis (principal); J96.11 Chronic respiratory failure with hypoxia; R05.3 Chronic cough | CPT/HCPCS: 99212 ==

== ENCOUNTER 2023-01-19 15:37 | Outpatient (AMB) | payer MEDICARE, SELFPAY ==
--- NOTE | 2023-01-19 15:40 | MHC.OFFVIS ---
Intake Vital Signs 01/19/23 15:46 Height 5 ft 2 in Weight 171 lb BMI 31.3 BP 124/52 L Blood Pressure Location Lt brachial Position Standing Pulse 72 Pulse Source Pulse Oximeter Pulse Oximetry (%) 92 Oxygen Delivery Method Room Air Intake Visit Reasons: Shortness of breath Intake Note: pt is here for follow up and states she still has some phelgm and some fluid build up past couple of days. Allergies No Known Allergies Allergy (Verified 01/19/23 15:53) HPI HPI Comments History of Present Illness Details The patient is a 82 -year-old woman with known COPD also chronic respiratory failure on oxygen. Apparently she was in usual state health until recently her became sick with RSV and was admitted to the [facility] [place]. For the last couple weeks she has had worsening respiratory symptoms. She has been evaluated twice by her primary care doctor. She has been given antibiotics and prednisone. However, she continues to worsen. Today she has been using 4 L pulse on her oxygen device. She is using a mask and she was noted to be 88%. However, the patient is not activating the oxygen based on the fact that she her nasal passages are congested and she is breathing through her mouth. Therefore I switched her oxygen to continues 2 L and she maintain a pulse ox of 92%. I explained to the patient that she is to avoid using the conserving device valve at this time. The patient was provided additional antibiotics and prednisone. If she is no better in 24-48 hours. she has to go to the hospital. However, if she worsens she also she go the hospital. ? 04/22/2021 the patient is here for pulmonary follow-up visit. Overall the patient has been feeling well. Her major complaint is a persistent cough. She also complains of a nasal congestion. She is constantly clearing her throat because of the cough. Therefore, will focus on her postnasal drip and upper airway cough syndrome. She does have Tessalon Perles that she uses as needed which do help some. She did start taking the gabapentin and appears to be helpful. She is sleeping better. recently she did lose her and has been grieving has not been eating as much. She has lost weight. I did repeat her chest x-ray demonstrating interval resolution of the left lower lobe pneumonia. This is reassuring. Overall she is doing well. 09/19/2021 the patient is here for a pulmonary follow-up visit. She does complaint of worsening dyspnea on exertion. [id number] severity. She has been using her respiratory therapy. she also complains of her nasal congestion. Sometimes she does get significant draining from the nose. The fluticasone was not helpful. Now she is going to be trying ipratropium nasal spray. She does have the oxygen therapy. The patient does need to use it with activity. Will have her undergo an overnight oximetry to see if she still needs that at nighttime while she sleeps. Sometimes she struggles with it. I did review her last chest x-ray from March 2021 demonstrating interval resolution of her left lower lobe pneumonia which is reassuring. 11/28/2021 the patient is here for a pulmonary follow-up visit. Since we last spoke she was admitted to [facility] with a COPD exacerbation. She initially requiring high-flow. She fell to the high-flow really help open up her airways. She was also placed on Spiriva HandiHaler and also on Advair. She feels this combination has been very helpful. In addition to that she does continue to use her oxygen with good effect. She has been having hard time caring the oxygen tanks. She also having hard time with her [employer]. Her sister her deals with all the paperwork would like to switch over to [facility]. Therefore we perform a 6 minutes walk test with a portable oxygen concentrator. The patient did desaturate on 2 L pulse was able to maintain a pulse ox of 92% on 3 L pulse. Therefore will request that she starts 2 L pulse with activity. The patient does have a hard time caring the oxygen tanks. Therefore will also request a portable oxygen concentrator. 05/19/2022 the patient is here for pulmonary follow-up visit. Overall the patient is doing well. She is responding well to the Wixela inhaler And the Spiriva. She has not required any prednisone since we last spoke. Patient has been using the oxygen. The oxygen therapy has been affective and beneficial. We did request a portable oxygen concentrator from the [employer]. Will plan to follow-up in 6 months and undergo a chest x-ray. Also to note she did undergo pulmonary function studies. She does have very severe COPD and has a severe diffusion impairment. 08/04/2022 the patient is here for a sick visit. Apparently she has been having issues with heart. She was admitted briefly at [facility] and then here [facility] found to have AFib with rapid ventricular response. She was placed on Eliquis and ultimately had her calcium channel sary increase for rate control. The patient has been having worsening cough however. Her cough is persistent and moderate to severe. At times is productive of yellow phlegm. Having hard time sleeping because of the cough. She has tried multiple [id number] remedies without any significant improvement. On examination seems like she has a good amount of purulent secretions that are coming down her posterior pharynx suggesting a component of sinusitis. the patient also had chest x-rays while being in the hospital July demonstrating some degree of atelectasis and minimal pleural effusion. We talked about her medications including lisinopril that is likely not helping with her cough. Although as part of the primary cause of the cough. At this point based on the severity of the cough will be reasonable to switch her to an ARB. 09/22/2022 the patient is here for pulmonary follow-up visit. She is finally feeling better. The cough significantly better. She still has a productive cough and brings up phlegm. We did talk about performing CPT with flutter valve. She does have 1 available and she can use it twice a day. Explained to her that she is always going to bring up some phlegm. At this time the azithromycin 3 times a week seems to be helpful. Coming off the lisinopril is also helpful. The Trelegy inhaler she is using once a day with good effect. Sometimes it makes her cough. I did instruct her to she is taking little softer so she does not irritate too much to the upper airway. The AFib seems to be in good control. We did review her x-ray from July 10 with demonstrating some minimal atelectasis and scoliosis. And at this point will plan to follow-up in 4 months. If the patient has any difficulties prior to that she is to call the office for an earlier evaluation. 11/19/2022 the patient is here for a pulmonary follow-up visit. The patient is feeling better. Her Wilfred inhibitor was stopped and her cough is improved. Although she still has a little productive phlegm. It does bother her. Does not seen significant improvement with the azithromycin. Will go ahead and stop it. I did request a sputum culture will try couple weeks of doxycycline to see if we can clear any significant mucus. Recently she did have a CT scan of the chest done beginning of November 2022 in a personally reviewed it. She does have some moderate degree amount of emphysema and also scoliosis. She also has atelectasis primarily in the left hemithorax there is a segment that appears to be nearly completely obstructed. If the patient continues symptomatic consider bronchoscopy to assess that airway to make sure there was no endobronchial blockage. But at this point clinically the patient is better overall and will try to minimize any semi invasive procedures. Will reassess in a few months. 01/20/2023 the patient is here for pulmonary follow-up visit. Overall the patient is feeling better. She did complete the antibiotics and the chest physical therapy. She continues to have dyspnea on exertion. She also has some fluid overload issues. Her x-ray she had back in July she did have small pleural effusions as well. The patient will benefit from additional diuresis specially with pulmonary hypertension. Holding off on any invasive or semi-invasive diagnostic interventions at this time. She continues use the oxygen with good effect. She continues use her respiratory therapy as well. Will go ahead and prescribe Lasix that she can use for 3-5 days and will monitor closely her weight and her lower extremity edema. If the patient continues use the diuretics she will need to have blood work to monitor her electrolytes and kidney function. [facility] Medical History (Updated 02/01/23 @ 21:27 by Stan Brito MD) Aortic valve calcification Chronic respiratory failure COPD (chronic obstructive pulmonary disease) Cough Mitral annular calcification Pleural effusion Pneumonia Pulmonary hypertension Sinusitis Surgical History No pertinent past surgical history Family History Brother Myocardial infarction Father Stroke Social History Alcohol intake: never Patient Tobacco Use Status: Never used Tobacco Tobacco use type: Cigarette e-Cigarette/Vaping Use: Never Used Second Hand Smoke Exposure: No Advance Directives Date on File: 07/07/22 service: No Current occupational status: retired Review of Systems Const Reports difficulty sleeping and Denies night sweats ENT Denies change in voice, Denies lip swelling, Denies mouth pain, Reports nasal congestion, Reports nasal discharge, Reports post nasal drip and Denies tongue swelling Card Denies chest pain and Reports dyspnea on exertion Resp Reports chest congestion, Reports cough and Reports dyspnea on exertion GI Denies abdominal pain Musc Denies no additional complaints Neuro Denies Neuro-related abnormal movements Psych Denies no additional complaints Celestine/Lymph Denies easy bleeding and Denies lymphadenopathy Aller/Immun Denies lip swelling and Denies tongue swelling Physical Exam Vital Signs: Last Vital Signs Pulse 72 01/19/23 15:46 BP 124/52 L 01/19/23 15:46 Pulse Ox 92 01/19/23 15:46 Oxygen Delivery Method Room Air 01/19/23 15:46 BMI result Body Mass Index 31.3 Const General: alert Orientation/consciousness: patient oriented x3 Neck Neck: Yes normal visual inspection, Yes full ROM and Yes no lymphadenopathy Chest Chest palpation & inspection: normal inspection of the chest Resp Auscultation: diminished lung sounds Cardio Rate: regular rate Rhythm: regular rhythm Heart sounds: S1 normal heart sound present and S2 normal heart sound present GI Palpation (GI): Soft to palpation and nontender Auscultation: normal bowel sounds Skin General skin exam: rashes and/or lesions noted Neuro General: patient oriented x3 Assessment & Plan Assessment & Plan (1) COPD (chronic obstructive pulmonary disease): Code(s): J44.9 - Chronic obstructive pulmonary disease, unspecified Qualifiers: COPD type: chronic bronchitis Chronic bronchitis type: mucopurulent Qualified Code(s): J41.1 - Mucopurulent chronic bronchitis (2) Chronic respiratory failure: Code(s): J96.10 - Chronic respiratory failure, unspecified whether with hypoxia or hypercapnia Qualifiers: Respiratory failure complication: hypoxia Qualified Code(s): J96.11 - Chronic respiratory failure with hypoxia (3) Cough: Code(s): R05.9 - Cough, unspecified Qualifiers: Cough type: chronic Qualified Code(s): R05.3 - Chronic cough (4) Pulmonary hypertension: Code(s): I27.20 - Pulmonary hypertension, unspecified (5) Pleural effusion: Code(s): J90 - Pleural effusion, not elsewhere classified Plan continue oxygen supplementation 2 L/pulse with activity. Will request change from [facility] to [facility] per the patient's request. Requesting POC due to her difficult time carrying the gas oxygen tanks. The POC will allow her to have better portability outside of the home. gabapentin at nighttime Trelegy daily short-acting beta agonist as needed Nasal saline at night has atelectasis of a LOPEZ segment. The etiology is not clear. Needs to use the CPT. Also consider bronchoscopy if worsen Lasix x 3-5 days F/U 3-4 months Medications: New furosemide (Lasix) 20 mg PO DAILY PRN 14 tabs 0RF edema 28 days Coding Level of Care Code Est Pt Level 4 (97580) Diagnoses COPD (chronic obstructive pulmonary disease) J41.1 COPD type: chronic bronchitis Chronic bronchitis type: mucopurulent Chronic respiratory failure J96.11 Respiratory failure complication: hypoxia Cough R05.3 Cough type: chronic Pulmonary hypertension I27.20 Pleural effusion J90 Time Spent (min) 18
[2023-01-19 15:46] VITALS: BP 124/52; PULSE 72; O2SAT 92; BMI 31.3
== END 2023-01-19 16:15 | disposition home or self-care (01) ==
PROVIDERS: PCP Internal Medicine; Visit Provider Hospitalist
DX: J41.1 Mucopurulent chronic bronchitis (principal); J96.11 Chronic respiratory failure with hypoxia; R05.3 Chronic cough; I27.20 Pulmonary hypertension, unspecified; J90 Pleural effusion, not elsewhere classified
CPT/HCPCS: 99214

== ENCOUNTER → 2023-01-19 15:37 | Outpatient (BNVA) | payer MEDICARE, SELFPAY | PROVIDERS: PCP Internal Medicine; Visit Provider Hospitalist | DX: J96.11 Chronic respiratory failure with hypoxia (principal); R05.3 Chronic cough; J90 Pleural effusion, not elsewhere classified; J41.1 Mucopurulent chronic bronchitis; I27.20 Pulmonary hypertension, unspecified; Z99.81 Dependence on supplemental oxygen | CPT/HCPCS: 99212 ==

== ENCOUNTER 2023-03-10 13:12 | Outpatient (AMB) | payer MEDICARE, MEDICAID, SELFPAY ==
--- NOTE | 2023-03-10 13:13 | A.OFFVIS_ITS ---
Intake Vital Signs 03/10/23 13:17 Height 5 ft 2 in Weight 169 lb 12.095 oz BMI 31.0 BP 138/58 L Blood Pressure Location Lt brachial Position Sitting Pulse 76 Intake Visit Reasons: follow up requested by Dr. Brito Intake Note: follow up w/ EKG Investigator Cash Shortage Required: No Accompanied by: Daughter Allergies No Known Allergies Allergy (Verified 03/10/23 13:18) Medication List - Last Reconciled 03/10/23 by Ruben Hickey MD albuterol sulfate 90 mcg/actuation (ProAir HFA) 2 puffs inhalation Q4-6H PRN albuterol sulfate 2.5 mg inhalation Q4-6H PRN apixaban (Eliquis) 5 mg PO BID citalopram 20 mg PO DAILY@0800 diltiazem HCl 240 mg See Protocol PO DAILY famotidine 20 mg PO DAILY@0800 nxzckjeswgq-swlblgpbe-xordplgf 100-62.5-25 mcg (Trelegy Ellipta) 1 inh inhalation DAILY 30 days furosemide (Lasix) 40 mg PO BID furosemide (Lasix) 20 mg PO DAILY PRN 28 days gabapentin 300 mg PO DAILY@1999 ipratropium bromide intranasal lisinopril 10 mg PO DAILY losartan 50 mg PO DAILY montelukast 10 mg PO DAILY@0800 nebulizers As directed Oxygen Home Use As directed pravastatin 40 mg PO DAILY@1999 ropinirole 0.25 mg PO DAILY@1999 turmeric root extract 500 mg PO DAILY@0800 HPI HPI Comments History of Present Illness Details Tanya returns for follow-up. She has a history of paroxysmal atrial fibrillation, COPD on supplemental oxygen, hypertension and many comorbidities. Continues to have shortness of breath with activity which has been longstanding. With regard to cardiac standpoint, no clear cardiac symptoms like angina. Shortness of breath is still present. She has been having off and on leg swelling. Per Pulmonary recommendations, diuretic dosing has been increased and that apparently helped a bit. However, today I do not see any swelling at all. In the past, went to [facility] but then switched to us. Daughter is also here for the appointment. [facility] Medical History (Updated 03/10/23 @ 13:36 by Ruben Hickey MD) Aortic valve calcification Chronic respiratory failure COPD (chronic obstructive pulmonary disease) Cough Mitral annular calcification Pleural effusion Pneumonia Pulmonary hypertension Sinusitis Surgical History No pertinent past surgical history Family History Brother Myocardial infarction Father Stroke Social History Alcohol intake: never Patient Tobacco Use Status: Never used Tobacco Tobacco use type: Cigarette e-Cigarette/Vaping Use: Never Used Second Hand Smoke Exposure: No Advance Directives Date on File: 07/07/22 service: No Current occupational status: retired Review of Systems Const Denies weakness ENT Denies dizziness Card Denies chest pain, Denies chest pain with activity, Denies syncope, Denies rapid heart rate, Denies pedal edema, Denies edema, Denies leg edema, Denies lightheadedness, Denies palpitations, Denies dyspnea, Denies dyspnea on exertion and Denies orthopnea Resp Denies cough, Denies dyspnea and Denies dyspnea on exertion GI Denies hematochezia and Denies change in stool character Musc Denies abnormal gait, Denies muscle cramps, Denies muscle weakness, Denies numbness, Denies radiating pain into limb and Denies tingling Neuro Denies abnormal gait, Denies dizziness, Denies syncope, Denies numbness, Denies tingling and Denies weakness Endo Denies palpitations Physical Exam Vital Signs: Last Vital Signs Pulse 76 03/10/23 13:17 BP 138/58 L 03/10/23 13:17 BMI result Body Mass Index 31.0 Const General: comfortable and no acute distress Orientation/consciousness: patient oriented x3 HEENT Other: Unremarkable Head: Yes normal to inspection Neck Neck: Yes normal visual inspection Chest Chest palpation & inspection: normal inspection of the chest Resp Auscultation: clear to auscultation bilaterally Cardio Palpation: normal PMI Heart sounds: S1 normal heart sound present, S2 normal heart sound present, no gallops, no murmurs and no rubs GI Palpation (GI): Soft to palpation Back/Spine/Pelvis Other: unremarkable Skin General skin exam: no rashes or lesions noted Neuro General: patient oriented x3 Extrem General: Yes normal to inspection Psych Mental Status: mental status grossly normal Office Procedures EKG Details: EKG with sinus rhythm at 76/Min; no significant ST-T changes and otherwise unremarkable[place] [address]-[id number], Complete Assessment & Plan Assessment & Plan (1) Leg edema: Code(s): R60.0 - Localized edema Plan: This could all be from venous insufficiency. Car pulmonary okay and also play a role. May just go back to her baseline diuretic does as she really does not have any leg swelling that I can noticed today. Otherwise, we will repeat echocardiogram to ensure there is no new finding. Other measures including leg elevation, compression stockings, avoiding too much of salt and fluids. (2) PAF (paroxysmal atrial fibrillation): Code(s): I48.0 - Paroxysmal atrial fibrillation Plan: Stable findings on Holter. Remains sinus rhythm. Continue diltiazem and Eliquis. A prior stress test from [facility], 2018 shows probably normal perfusion. (3) Aortic valve calcification: Code(s): I35.9 - Nonrheumatic aortic valve disorder, unspecified Plan: Moderate aortic valve calcification echocardiogram but no significant dysfunction. Can be monitored clinically and by echocardiograms. (4) Mitral annular calcification: Code(s): I34.81 - Nonrheumatic mitral (valve) annulus calcification Plan: Mild mitral annular calcification. No stenosis or regurgitation. (5) Pulmonary hypertension: Code(s): I27.20 - Pulmonary hypertension, unspecified Plan: Mild pulmonary hypertension on echocardiogram. Likely all from pulmonary issues. May recheck as above. Plan Discussed with daughter who came for appointment. Orders: Orders CA echo transthoracic complete Today R60.0 - Localized edema Coding Level of Care Code Est Pt Level 4 (40959) Diagnoses Leg edema R60.0 PAF (paroxysmal atrial fibrillation) I48.0 Aortic valve calcification I35.9 Mitral annular calcification I34.81 Pulmonary hypertension I27.20 CPT Codes EKG - CPT: 07582-Laszmhvqvbbqvixlk, Complete ([id number])
[2023-03-10 13:17] VITALS: BP 138/58; PULSE 76; BMI 31.0
== END 2023-03-10 14:33 | disposition home or self-care (01) ==
PROVIDERS: PCP Internal Medicine; Referring Provider Internal Medicine; Visit Provider Internal Medicine
DX: R60.0 Localized edema (principal); I48.0 Paroxysmal atrial fibrillation; I35.9 Nonrheumatic aortic valve disorder, unspecified; I34.81 Nonrheumatic mitral (valve) annulus calcification; I27.20 Pulmonary hypertension, unspecified
CPT/HCPCS: 93010; 99214

== ENCOUNTER → 2023-03-10 13:12 | Outpatient (BNVA) | payer MEDICARE, MEDICAID, SELFPAY | PROVIDERS: PCP Internal Medicine; Referring Provider Internal Medicine; Visit Provider Internal Medicine | DX: I35.9 Nonrheumatic aortic valve disorder, unspecified (principal); I48.0 Paroxysmal atrial fibrillation; R60.0 Localized edema; I34.81 Nonrheumatic mitral (valve) annulus calcification; I27.20 Pulmonary hypertension, unspecified; Z79.01 Long term (current) use of anticoagulants; Z79.899 Other long term (current) drug therapy | CPT/HCPCS: 93005; 99212 ==

== ENCOUNTER → 2023-04-01 14:53 | Outpatient (REF) | payer MEDICARE, MEDICAID, SELFPAY ==
--- NOTE | 2023-04-01 14:55 | CA_ITS ---
Transthoracic Echocardiogram Patient (Last, First, Middle): Tanya Jyoa, Gender: Female Date of : 1940 Age: 82 Procedure Date: 04/01/2023 Procedure Type: Transthoracic Echocardiogram Location: OP Height: 165.1 cm Weight: 78.93 kg BSA: 1.86 m2 Heart Rate: 77 bpm BP: 128 / 58 mmHg Lens Blank Gauger: NEELIMA Referring MD: Ruben Hickey MD Shoe Dresser: Marek Deluna MD Symptoms: R60.0 - Localized edema Study Quality: Adequate w contrast ECG Rhythm: Sinus Conclusions: - 1. Normal LV systolic function with LVEF of 65-70% with pseudonormal filling pattern 2. Mildly dilated left atrium 3. Moderate mitral calcification and fibrocalcific aortic valve changes noted with cardiac valvular Dopplers within normal limits 4. Moderately elevated right ventricle systolic pressure 5. No gross pericardial effusion Findings Procedure Information Contrast agent, definity, is being given per protocol without apparent complications. Left Ventricle Normal left ventricular size, thickness, and systolic function. The visually estimated ejection fraction is between 65-70%. Spectral Doppler is indicative of a pseudonormal filling pattern. Right Ventricle Normal right ventricular cavity size and systolic function. Atria The left atrium is mildly dilated. Interatrial shunt cannot be excluded. The right atrium was not well visualized. Aortic Valve There is mild calcification of the aortic valve. There is no aortic valve stenosis. There is no aortic valve regurgitation. Mitral Valve There is mild anterior and moderate posterior mitral leaflet thickening. There is moderate mitral annular calcification. There is trace mitral valve regurgitation. There is no mitral valve stenosis. Pulmonic Valve The pulmonic valve was not well visualized. Tricuspid Valve Normal tricuspid valve structure. There is mild tricuspid valve regurgitation. The right ventricular systolic pressure is 53 mmHg. Mildly elevated right atrial pressure. Moderate pulmonary hypertension is present. Great Vessels All visible segments of the aorta are normal in size. The pulmonary artery was not well visualized. Venous The inferior vena cava is normal in size and collapses less than 50% with inspiration. Pericardium/Pleural There is no evidence of pericardial effusion. Prior Study Comparison Changes noted compared to prior study dated: 07/07/2022. RV systolic pressure is further elevated Measurements 2D Linear Measurements IVSd: 0.93 0.6-0.9/0.6-1.0 cm LVIDd: 5.27 3.9-5.3/4.2-5.9 cm LVIDd Index: 2.83 2.4-3.2/2.2-3.1 cm/m2 LVIDs: 3.20 2.0-3.6 cm LVPWd: 0.64 0.7-1.1 cm LA Diam: 3.90 2.7-3.8/3.0-4.0 cm LAIDs Index: 2.10 1.5-2.3 cm/m2 LV Mass: 180.45 67-162/88-224 g LV Mass Index: 97.02 43-95/49-115 g/m2 LVOT Diam: 2.10 3.0+(-)1.3 cm 2D Systolic Function EF 4C: 71.20 >55% EF 2C: 66.70 >55% EF BiP: 68.20 >55% Mitral Valve MV VTI: 0.25 MV Pk Eladio: 1.05 MV Mn Eladio: 0.59 MV Pk Grad: 4.00 MV Mn Grad: 2.00 MV Pk E: 0.93 MV PK A: 0.73 MV Decel Time: 178.00 E/A: 1.30 E'Lateral: 7.62 E'Medial: 6.31 E/E' Med: 14.70 E/E' Lat: 12.10 PHT: 52.00 MVA PHT: 4.23 MVA Continuity: 3.77 Decel [place]: 5.20 Aortic Valve AoV Pk Eladio: 1.77 AoV Mn Eladio: 1.20 AoV VTI: 0.38 AoV Pk Grad: 13.00 Aov Mn Grad: 7.00 JODIE Cont.VTI: 2.41 LVOT LVOT Pk Eladio: 1.15 LVOT Mn Eladio: 0.80 LVOT VTI: 0.27 LVOT Pk Grad: 5.00 LVOT Mn Grad: 3.00 LVOT Diam: 2.10 LVOT Area: 3.46 Diastolic Function MV Pk E: 0.93 MV Pk A: 0.73 E/A: 1.30 E'Medial: 6.31 E/E' Med: 14.70 E' Laterial: 7.62 E/E' Lat: 12.10 Right Ventricle TAPSE (mm): 28.70 TVS' Eladio: 12.80 Tricuspid Valve TR Pk Eladio: 3.35 TR Pk Grad: 45.00 RA Press: 8.00 RVSP: 53.00 Great Vessels Aorta Sinus of Valsalva: 3.20 2.0-3.5 cm Ao Asc: 2.80 2.1-3.4 cm Pulmonary Valve PV Pk Eladio: 0.93 Peak PV Grad: 3.00 Updated in Other Vendor System with Status of Final Marek Deluna MD electronically signed on 04/02/2023 9:10:20 AM with status of Final
== END ==
LOC: HO.CARD 14:53
PROVIDERS: PCP Internal Medicine; Visit Provider Internal Medicine
DX: R60.0 Localized edema (principal)
CPT/HCPCS: 93306; Q9957

== ENCOUNTER → 2023-04-01 14:55 | Outpatient (BNV) | payer MEDICARE, MEDICAID, SELFPAY | PROVIDERS: PCP Internal Medicine; Visit Provider Internal Medicine Cardiovascular Disease | DX: I34.81 Nonrheumatic mitral (valve) annulus calcification (principal); I36.1 Nonrheumatic tricuspid (valve) insufficiency | CPT/HCPCS: 93306 ==

== ENCOUNTER 2023-04-13 12:38 | Inpatient (IN) | payer MEDICARE, MEDICAID, SELFPAY ==
[2023-04-13 12:49] VITALS: BP 116/37; PULSE 78; RESP 18; TEMP 36.7; O2SAT 96; BMI 31.1
--- NOTE | 2023-04-13 12:49 | ED.GENADULT ---
HPI - General Adult General Chief complaint: Dyspnea Stated complaint: O2 low Time Seen by Provider: 04/13/23 21:59 Source: patient and family Mode of arrival: ambulatory Limitations: no limitations History of Present Illness HPI narrative: Patient is an 82-year-old female who presents emergency department for evaluation of progressive shortness of breath over the past week with lightheadedness, productive cough with white/yellow phlegm and nasal congestion, also endorsing mild increase in lower extremity swelling and frequent urination. She states that she has noticed her room air O2 saturation dropping down to 75% with ambulation at home. She does have oxygen via nasal cannula which she uses p.r.n. due to her history of COPD. She has not needed to use it for the past month. She is feeling increasingly more weak which prompted her to come to the emergency department. She denies headache, neck pain, chest pain, nausea, vomiting, abdominal pain, numbness or tingling of the extremities Related Data Home Medications Medication Instructions Recorded Confirmed albuterol sulfate 2.5 mg/3 mL 2.5 mg inhalation Q4-6H PRN 03/07/21 03/10/23 (0.083 %) solution for nebulization Wheezing famotidine 20 mg tablet 20 mg PO DAILY@79903/07/21 03/10/23 pravastatin 40 mg tablet 40 mg PO DAILY@199903/07/21 03/10/23 ropinirole 0.25 mg tablet 0.25 mg PO DAILY@199903/07/21 03/10/23 citalopram 10 mg tablet 20 mg PO DAILY@79909/19/21 03/10/23 turmeric root extract 500 mg 500 mg PO DAILY@79909/19/21 03/10/23 capsule montelukast 10 mg tablet 10 mg PO DAILY@79907/06/22 03/10/23 Oxygen Home Use 09/22/22 03/10/23 nebulizers 09/22/22 03/10/23 furosemide 20 mg tablet (Lasix) 40 mg PO BID 01/19/23 03/10/23 ipratropium bromide 42 mcg (0.06 intranasal 01/19/23 03/10/23 %) nasal spray lisinopril 10 mg tablet 10 mg PO DAILY 03/10/23 03/10/23 losartan 50 mg tablet 50 mg PO DAILY 03/10/23 03/10/23 Previous Rx's Medication Instructions Recorded albuterol sulfate 90 mcg/actuation 2 puff inhalation Q4-6H PRN 02/17/21 aerosol inhaler (ProAir HFA) shortness of breath or wheezing #8.5 grams apixaban 5 mg tablet (Eliquis) 5 mg PO BID #60 tabs 07/11/22 diltiazem HCl 240 mg 240 mg PO DAILY #30 caps 08/13/22 capsule,extended release 24 hr fluticasone fur. 100 mcg-umeclid 1 inh inhalation DAILY 30 days #60 09/10/22 62.5 mcg-vilant 25 mcg ea inhalat.powder (Trelegy Ellipta) furosemide 20 mg tablet (Lasix) 20 mg PO DAILY PRN edema 28 days 01/19/23 #14 tabs gabapentin 300 mg capsule 300 mg PO BEDTIME 30 days #30 caps 03/24/23 Allergies Allergy/AdvReac Type Severity Reaction Status Date / Time No Known Allergies Allergy Verified 03/10/23 13:18 Review of Systems Review of Systems: Yes all other systems are reviewed and are negative [facility] Past Medical History Attestation statement: The following information was validated with the patient. Source: old records reviewed Medical History Pleural effusion Pulmonary hypertension Mitral annular calcification Aortic valve calcification Cough Sinusitis Chronic respiratory failure COPD (chronic obstructive pulmonary disease) Pneumonia Surgical History No pertinent past surgical history Family History Family History Brother Myocardial infarction Father Stroke Social History Social History Alcohol intake: never Patient Tobacco Use Status: Never used Tobacco Tobacco use type: Cigarette Smoked in Last 30 Days: No e-Cigarette/Vaping Use: Never Used Second Hand Smoke Exposure: No Use of substances other than those prescribed or required for medical reasons: No Advance Directives: Yes Advance Directives on File: Yes Advance Directives Date on File: 07/07/22 service: No Current occupational status: retired Physical Exam ED Vital Signs: Vital Signs - 24 hr 04/13/23 12:49 04/13/23 20:33 04/13/23 22:03 Temperature 98.1 F 98.0 F 97.6 F Pulse Rate 78 61 59 Respiratory Rate 18 18 20 Blood Pressure 116/37 L 124/58 L 125/40 L Pulse Oximetry 96 94 99 Oxygen Delivery Method Nasal Cannula Nasal Cannula Nasal Cannula Oxygen Flow Rate 2 BMI result Body Mass Index 31.1 Appearance: Alert.?Oriented to person, place and time. No acute distress.?Normal affect. Eyes: Pupils equal, round and reactive to light.? ENT: Pharynx normal.?? Neck: Normal inspection.? Neck supple.?? CVS: Heart sounds normal. Normal heart rate and rhythm.? Pulses normal.?? Respiratory: Increased work of breathing with minimal exertion Lung sounds with minimal air movement, diffuse rales throughout? Abdomen: Soft and non-tender. Normoactive bowel sounds. No pulsatile mass.?? Skin: Skin warm and dry.? Normal skin color.? Normal skin turgor.?? Extremities: 2+ bilateral lower extremity edema. Neuro: Moves all extremities spontaneously. Sensation intact bilaterally. No focal neuro deficits. Ambulates with normal steady gait. Course Course Course Narrative: This is an RME: Additional HPI, ROS, PE not included below will be deferred to primary provider. This is a 27-kalj-kna-female with a complaint of COPD on 2L of oxygen as needed, CHF, HTN, presenting to the emergency department with lightheadedness, cough with white/yellow sputum, nasal congestion, lower leg swelling, increased urination. She states that she has feeling she needed oxygen at all times as her oxygen dropped down to 74% with ambulation. Oxygen 96% on 2L nasal cannula. Plan: Labs, EKG, CXR, viral swabs Reevaluation(s) Reevaluation #1: CBC reveals no leukocytosis, overall unremarkable, CMP is overall unremarkable. Noted to have room air hypoxia down to 75%, she states she has not needed to use her p.r.n. oxygen for the past month. She has been short of breath for the past week requiring persistent use of her oxygen, she does endorse a productive cough, I have ordered ceftriaxone and doxycycline IV, she does not meet SIRS criteria, not consistent with sepsis at this time. Upon review of her chest x-ray there is concern for left lower lobe infiltrate, low risk for aspiration likely a pneumonia. Although she is notably disc neck with minimal exertion, and has rales throughout. Her BNP is 184, chest x-ray does not appear consistent with pulmonary congestion, no pleural effusion. Troponin 8.6, she has no chest pain, EKG revealing a normal sinus rhythm with ventricular rate of 73, QTC 440, no ST elevation or ST depression, not consistent with ACS. Discussed this case with ED attending, Dr. Ramos, given my concern that the infiltrate on chest x-ray does not appear sufficient to explain her symptoms/physical examination. Will proceed with CT of the chest without contrast, unlikely pulmonary embolism given she is anticoagulated with Eliquis Time: 23:25 Reevaluation #2: Spoke with hospitalist; Dr. Johnston with accepts patient for admission to medicine service, CT of the chest revealing severe emphysematous changes and a new right mm left upper lobe lesion. Patient agreeable with plan of care for admission. Time: 00:46 Medications Administered Generic Name Dose Route Start Last Admin Trade Name Freq PRN Reason Stop Dose Admin Acetaminophen 650 mg 04/14/23 00:37 04/14/23 01:38 Acetaminophen 325 Mg Tablet PO 650 mg Q6H PRN Administration Pain, Mild (Pain Scale 1-3) Methylprednisolone Sodium Succinate 40 mg 04/14/23 00:45 04/14/23 00:40 Methylprednisolone Sod Succ 40 Mg/Ml Vial IVPUSH 40 mg BID@1000,2200 SHALA Administration Discontinued Medications Generic Name Dose Route Start Last Admin Trade Name Freq PRN Reason Stop Dose Admin Ceftriaxone Sodium 1 gm/ 50 mls @ 100 mls/hr 04/13/23 23:18 04/14/23 01:05 Sodium Chloride IV 04/13/23 23:47 Infused ONCE ONE Infusion Doxycycline Hyclate 100 mg/ 250 mls @ 166.67 mls/hr 04/13/23 23:18 04/14/23 00:33 Sodium Chloride IV 04/14/23 00:47 166.67 mls/hr ONCE ONE Administration Medical Decision Making Medical Decision Making [facility] Narrative: Patient is an 82-year-old female with past medical history of pulmonary hypertension, paroxysmal atrial fibrillation on Eliquis, COPD, CHF with preserved EF presenting to emergency department for evaluation of shortness of breath and hypoxia. At the time my examination she does appear fatigued even with minimal exertion, she had stood up in the room to get something and she was notably tachypneic. Will obtain CBC to evaluate for leukocytosis/ anemia, CMP and lipase to evaluate for abnormal electrolytes /abnormal renal function/ abnormal hepatic/biliary function, EKG and troponin to evaluate for ischemia/ACS. Chest x-ray to evaluate for consolidation/ infiltrate/ mass/ pulmonary congestion and Urinalysis. Differential Diagnosis Differential Diagnoses: The differential diagnosis associated with the presentation includes (He CS, CHF exacerbation, COPD exacerbation, pneumonia (currently not meeting sirs criteria), unlikely pulmonary embolism as she is anticoagulated) Admission/Observation Consideration of admission/observation: Escalation of care including admission/observation considered (Considered admission for shortness of breath and hypoxia, see course narrative for further detail) Consult Healthcare Provider Management of the patient was discussed with: Hospitalist Lab Data MDM Lab Attestation statement: I reviewed the patient's lab results. (See course narrative for further detail) 04/13/23 13:15 04/13/23 13:15 Labs: Lab Results 04/13/23 04/13/23 Range/Units 13:15 22:11 WBC 6.9 (4.8-10.8) X10*3/uL RBC 4.19 L (4.20-5.50) X10*6/uL Hgb 11.7 L (12.0-16.0) g/dl Hct 37.8 (37.0-47.0) % MCV 90.2 (80.0-98.0) fL MCH 27.9 (27.0-33.0) pg MCHC 31.0 (31.0-35.0) g/dl RDW 14.4 (11.0-16.0) % Plt Count 394 (160-400) X10*3/uL MPV 9.4 (9.4-12.3) fL Immature Gran % (Auto) 0.4 (0.0-0.4) % Neut % (Auto) 72.8 (45-73) % Lymph % (Auto) 15.4 L (20-40) % [place] % (Auto) 9.2 (2-11) % Eos % (Auto) 1.0 (0-4) % Baso % (Auto) 1.2 (0-2) % Lymph # (Auto) 1.1 L (1.2-4.9) X10*3/uL [place] # (Auto) 0.6 (0.1-1.2) X10*3/uL Eos # (Auto) 0.1 (0.0-0.4) X10*3/uL Baso # (Auto) 0.1 (0.0-0.2) X10*3/uL Abs Immat Gran (auto) 0.03 (0.00-0.03) X10*3/uL Absolute Neuts (auto) 5.0 (2.0-8.3) x10*3/uL Absolute Nucleated RBC 0.000 (0.0-0.012) X10*3/uL Nucleated RBC % (auto) 0.0 (0.0-0.2) /100WBC Sodium 136 (135-145) mmol/L Potassium 3.8 D (3.3-5.1) mmol/L Chloride 100 (96-108) mmol/L Carbon Dioxide 24 (22-29) mmol/L Anion Gap 16 (12-20) BUN 11 (9-16) mg/dL Creatinine 0.75 (0.5-1.4) mg/dL Estim Creat Clear Calc 57.5 Estimated GFR > 60 Random Glucose 211 H (60-115) mg/dL Calcium 8.8 (8.4-10.2) mg/dL Magnesium 2.1 (1.6-2.6) mg/dL Total Bilirubin 0.3 (0.0-1.0) mg/dL Direct Bilirubin 0.1 (0.0-0.5) mg/dL AST 18 (5-31) U/L ALT 8 (0-31) U/L Alkaline Phosphatase 83 (39-117) U/L Troponin I High Sens 8.6 (<3.5-17.0) ng/L B-Natriuretic Peptide 184 H (<100) pg/mL Total Protein 7.5 (6.5-8.0) g/dL Albumin 3.3 L (3.5-5.0) g/dL Influenza Type A (PCR) NEGATIVE (Negative) Influenza Type B (PCR) NEGATIVE (Negative) RSV RNA Qual (PCR) NEGATIVE (Negative) SARS-CoV-2 RNA (RT-PCR) NEGATIVE (Negative) S. pyogenes GrpA WALI Negative (Negative) Independent Interpretation I performed an independent interpretation of an: EKG (See course narrative for further detail) and Plain X-Ray (I personally interpreted chest x-ray and agree with radiologist impression.) Radiology Impression Discussion of test interpretation with radiology: I have reviewed the radiologist's reading. Radiologist Impression: XR/XR chest 2V IMPRESSION: Focal airspace opacities in the left lower lobe that could be related with aspiration or pneumonia. Recommend follow-up after treatment to ensure resolution. Background of chronic air-trapping and diffuse interstitial thickening suggesting emphysema/COPD. CT/CT chest wo IV con IMPRESSION: 1. Severe emphysematous changes. 2. New 9 mm spiculated area of architectural distortion in the left upper lobe. This finding is suspicious and warrants follow-up. 3. Other incidental findings as described above. According to the UPDATED 2017 Fleischner Society recommendations, the advised follow-up imaging for a single solid nodule measuring greater than [address] at 3 months, PET/CT, or tissue sampling as clinically appropriate. Independent Historian Clinical information obtained from an independent historian. History obtained from or confirmed by: Other (Daughter present at bedside who confirms history) External Record Review External record reviewed: Outpatient record and Prior outpatient labs Critical Care Time Critical Care Time Critical Care Time: Yes Total Critical Care Time: 35 Attestation: I personally attest to this critical care time spent taking care of the patient exclusive of all other billable procedures was approximately 35 minutes including initial evaluation of patient, ordering tests, x-ray interpretation, EKG interpretation, medical consultation, documentation, re-evaluation. Discharge Plan Discharge Clinical Impression: COPD (chronic obstructive pulmonary disease), Pneumonia Patient Disposition: Admitted As Inpatient
[2023-04-13 20:33] VITALS: BP 124/58; PULSE 61; RESP 18; TEMP 36.7; O2SAT 94
[2023-04-13 22:03] VITALS: BP 125/40; PULSE 59; RESP 20; TEMP 36.4; O2SAT 99
--- NOTE | 2023-04-13 23:54 | PC.NURSE ---
this rn assumed care at this time. pt reporting shortness of breath for one week with hx of COPD. pt reports wearing 2L nasal cannula at home baseline and reports at one point this week her o2 sat was 70%. pt lung sounds clear bilaterally but reports a productive cough with yellow sputum. pt denies chest pain, nausea and vomiting. pt currently 98-100% on 2L, normal sinus on tele 88-90.
[2023-04-14] VITALS (9 sets, daily range): BP systolic 113–136; BP diastolic 44–63; PULSE 71–101; RESP 18–23; TEMP 36.5–37; O2SAT 91–99
--- NOTE | 2023-04-14 00:39 | PM.IMHP ---
History of Present Illness Date of Service: 04/14/23 Chief Complaint: Dyspnea This is a 82-year-old female with pertinent history of chronic hypoxemic respiratory failure due to COPD, baseline p.r.n. 2 L supplemental oxygen, paroxysmal atrial fibrillation on anticoagulation, essential hypertension, mixed hyperlipidemia, leg edema due to venous insufficiency on Lasix, mood disorder who presents to the emergency department for evaluation of dyspnea. Patient states that she has been having dyspnea worse with exertion that has been progressive over the last 7-10 days. It is associated with productive cough with clear sputum production. Also has associated wheezing. No fever or chills. Patient denies chest discomfort, palpitations, orthopnea, PND, abdominal pain, changes in urinary or bowel habits. Patient states she uses 2 L supplemental oxygen as needed and at home her oxygen was in the 70s despite her baseline supplemental oxygen. In the emergency department, patient with continued wheezing and requiring 2-3 L supplemental oxygen Review of Systems Constitutional: Constitutional: Reports fatigue and Reports lethargy Cardiovascular: Cardiovascular: Reports dyspnea on exertion Respiratory: Respiratory: Reports cough, Reports dyspnea on exertion and Reports wheezing Gastrointestinal: Gastrointestinal: Reports no additional gastrointestinal complaints Genitourinary: Genitourinary: Reports no additional female genitourinary complaints Endocrine: Endocrine: Reports fatigue Allergic/Immunologic: Allergic/Immunologic: Reports wheezing [facility] Medical History Pleural effusion Pulmonary hypertension Mitral annular calcification Aortic valve calcification Cough Sinusitis Chronic respiratory failure COPD (chronic obstructive pulmonary disease) Pneumonia Family History Brother Myocardial infarction Father Stroke Surgical History No pertinent past surgical history Social History Alcohol intake: never Patient Tobacco Use Status: Never used Tobacco Tobacco use type: Cigarette Smoked in Last 30 Days: No e-Cigarette/Vaping Use: Never Used Second Hand Smoke Exposure: No Use of substances other than those prescribed or required for medical reasons: No Advance Directives: Yes Advance Directives on File: Yes Advance Directives Date on File: 07/07/22 service: No Current occupational status: retired Meds Allergies Allergy/AdvReac Type Severity Reaction Status Date / Time No Known Allergies Allergy Verified 03/10/23 13:18 Active Medications: Current Medications Albuterol/Ipratropium (Albuterol/Iprat 2.5/0.5mg 3 Ml Ampul.Neb) 3 ml INHALE RQ4H WHILE AWAKE [facility] Albuterol/Ipratropium (Albuterol/Iprat 2.5/0.5mg 3 Ml Ampul.Neb) 3 ml INHALE Q4H PRN PRN Reason: Wheezing Doxycycline Hyclate 100 mg/ (Sodium Chloride) 250 mls @ 166.67 mls/hr IV ONCE ONE Stop: 04/14/23 00:47 Last Admin: 04/14/23 00:33 Dose: 166.67 mls/hr Methylprednisolone Sodium Succinate (Methylprednisolone Sod Succ 40 Mg/Ml Vial) 40 mg IVPUSH BID@1000,2200 [facility] Home Medications Medication Instructions Recorded Confirmed Last Taken Type albuterol sulfate 2.5 mg/3 mL 2.5 mg inhalation Q4-6H PRN 03/07/21 03/10/23 Unknown History (0.083 %) solution for nebulization Wheezing famotidine 20 mg tablet 20 mg PO DAILY@79903/07/21 03/10/23 Unknown History pravastatin 40 mg tablet 40 mg PO DAILY@199903/07/21 03/10/23 Unknown History ropinirole 0.25 mg tablet 0.25 mg PO DAILY@199903/07/21 03/10/23 Unknown History citalopram 10 mg tablet 20 mg PO DAILY@79909/19/21 03/10/23 Unknown History turmeric root extract 500 mg 500 mg PO DAILY@79909/19/21 03/10/23 Unknown History capsule montelukast 10 mg tablet 10 mg PO DAILY@79907/06/22 03/10/23 Unknown History Oxygen Home Use 09/22/22 03/10/23 Unknown History nebulizers 09/22/22 03/10/23 Unknown History furosemide 20 mg tablet (Lasix) 40 mg PO BID 01/19/23 03/10/23 Unknown History ipratropium bromide 42 mcg (0.06 intranasal 01/19/23 03/10/23 Unknown History %) nasal spray lisinopril 10 mg tablet 10 mg PO DAILY 03/10/23 03/10/23 Unknown History losartan 50 mg tablet 50 mg PO DAILY 03/10/23 03/10/23 Unknown History Physical Exam Vital Signs and Narrative: Vital Signs: Last Vital Signs Temp 97.6 F 04/13/23 22:03 Pulse 59 04/13/23 22:03 Resp 20 04/13/23 22:03 BP 125/40 L 04/13/23 22:03 Pulse Ox 99 04/13/23 22:03 O2 Del Method Nasal Cannula 04/13/23 22:03 O2 Flow Rate 2 04/13/23 22:03 Oxygen Flow Rate 2 04/13/23 20:33 BMI result Body Mass Index 31.1 Elderly female lying in bed in mild distress on supplemental oxygen Neck supple, no JVD Regular rate and rhythm, S1-S2 heard Bilateral wheezing without crackles Abdomen soft nontender, no guarding, no rigidity Patient is awake, alert and oriented to self, place, time and person ; no focal motor deficit Psych: Normal mood Bilateral leg edema Results Labs 04/13/23 13:15 04/13/23 13:15 Labs: Laboratory Results - last 24 hr 04/13/23 04/13/23 13:15 22:11 MCV 90.2 MCH 27.9 MCHC 31.0 RDW 14.4 Plt Count 394 MPV 9.4 Immature Gran % (Auto) 0.4 Neut % (Auto) 72.8 Lymph % (Auto) 15.4 L Davidson % (Auto) 9.2 Eos % (Auto) 1.0 Baso % (Auto) 1.2 Lymph # (Auto) 1.1 L Davidson # (Auto) 0.6 Eos # (Auto) 0.1 Baso # (Auto) 0.1 Abs Immat Gran (auto) 0.03 Absolute Neuts (auto) 5.0 Absolute Nucleated RBC 0.000 Nucleated RBC % (auto) 0.0 Anion Gap 16 Estim Creat Clear Calc 57.5 Estimated GFR > 60 Random Glucose 211 H Calcium 8.8 Magnesium 2.1 Total Bilirubin 0.3 Direct Bilirubin 0.1 AST 18 ALT 8 Alkaline Phosphatase 83 B-Natriuretic Peptide 184 H Total Protein 7.5 Albumin 3.3 L Influenza Type A (PCR) NEGATIVE Influenza Type B (PCR) NEGATIVE RSV RNA Qual (PCR) NEGATIVE SARS-CoV-2 RNA (RT-PCR) NEGATIVE S. pyogenes GrpA WALI Negative Imaging Radiologist's Impressions: Impressions Chest X-Ray 04/13/23 13:25 IMPRESSION: Focal airspace opacities in the left lower lobe that could be related with aspiration or pneumonia. Recommend follow-up after treatment to ensure resolution. Background of chronic air-trapping and diffuse interstitial thickening suggesting emphysema/COPD. Chest CT 04/13/23 23:40 IMPRESSION: 1. Severe emphysematous changes. 2. New 9 mm spiculated area of architectural distortion in the left upper lobe. This finding is suspicious and warrants follow-up. 3. Other incidental findings as described above. According to the UPDATED 2017 Fleischner Society recommendations, the advised follow-up imaging for a single solid nodule measuring greater than [address] at 3 months, PET/CT, or tissue sampling as clinically appropriate. Assessment and Plan (1) COPD (chronic obstructive pulmonary disease): Qualifiers: COPD type: chronic bronchitis Chronic bronchitis type: mucopurulent Qualified Code(s): J41.1 - Mucopurulent chronic bronchitis Status: Acute Plan This is a 82-year-old female with pertinent history of chronic hypoxemic respiratory failure due to COPD, baseline p.r.n. 2 L supplemental oxygen, paroxysmal atrial fibrillation on anticoagulation, essential hypertension, mixed hyperlipidemia, leg edema due to venous insufficiency on Lasix, mood disorder who presents to the emergency department for evaluation of dyspnea. #. Acute on chronic hypoxemic respiratory failure due to acute exacerbation of COPD. Will admit patient with supplemental oxygen. Initiating systemic steroids. Scheduled and p.r.n. DuoNebs. Continue home inhaler. Monitor oxygen saturation and wean as tolerated. Maintain oxygen saturation greater than 88%. Initiating azithromycin for pleiotropic effect #. Essential hypertension. Continue home mood stabilizers #. Paroxysmal atrial fibrillation: On Eliquis. Rate controlled in the ER #. Bilateral leg edema due to venous insufficiency. Continue home Lasix #. Mixed hyperlipidemia. On statin #. Mood disorder. Continue home mood stabilizers #. Hyperglycemia. Initiating Accu-Cheks with sliding scale insulin. Obtain A1c Med rec pending DVT prophylaxis: Eliquis Cardiac diet Admit as inpatient and will require two night minimum hospital stay for supplemental oxygen Time Spent With Patient Time: Total time managing care of this patient today ____ minutes. Quality Stroke Does the patient have a stroke diagnosis?: No VTE Prior VTE?: No VTE Risk Level:: Medical - moderate - high VTE Device Contraindication: Treatment Not Indicated VTE Drug Contraindication: N/A - Med Ordered
[2023-04-14] MEDS: Acetaminophen 325 MG TABLET 650 MG PO (01:38)
--- NOTE | 2023-04-14 02:10 | PC.NURSE ---
pt daughter at bedside provided a sheet of pt current medications. med req completed at this time.
--- NOTE | 2023-04-14 03:11 | PC.NURSE ---
this rn assisted pt to the bathroom. pt ambulated with steady gait, reports SOB but reports SOB decreases once pt sits down and rests. pt denies dizziness when ambulating.
[2023-04-14 05:28] LABS: Alanine Aminotransferase 8 U/L (0-31); Albumin Level 3.4 g/dL (3.5-5.0); Alkaline Phosphatase 80 U/L (39-117); Anion Gap 15 (12-20); Aspartate Amino Transferase 15 U/L (5-31); Bilirubin Total 0.2 mg/dL (0.0-1.0); Blood Urea Nitrogen 13 mg/dL (9-16); Calcium 8.5 mg/dL (8.4-10.2); Carbon Dioxide 27 mmol/L (22-29); Chloride 99 mmol/L (96-108); Creatinine Clr Calc Pharmacy 60.7; Estimated Glomerular Filt Rate > 60; Glucose Random 214 mg/dL (60-115); Potassium 3.5 mmol/L (3.3-5.1); Sodium 137 mmol/L (135-145); Total Protein 7.2 g/dL (6.5-8.0)
--- NOTE | 2023-04-14 08:23 | PC.NURSE ---
Pt medicated per order, assisted to restroom. good appetite, ate most of breakfast. medicated for headache.
--- NOTE | 2023-04-14 09:20 | MHC.CM.PN ---
PT REPORTS SHE LIVES WITH HER DAUGHTER AND IS INDEPENDENT WITH CARE SHE IS ACTIVE WITH [facility] FOR MEALS ON WHEELS ONLY SHE HAS HOME OXYGEN FROM [facility] THAT SHE WEARS CONTINUOUSLY, NO OTHER DME SHE REPORTS HER DAUGHTER IS HER HCP PCP: JOHN HERNANDEZ [facility] DELIVERED DCP: HOME WITH NO NEW SERVICES VIA [facility]
--- NOTE | 2023-04-14 09:25 | PHA.MEDREC ---
Pharmacy Consult ? Medication Reconciliation Pharmacy has completed the medication reconciliation. PHARMACY HAS REVIEWED MED REC DONE BY NURSING
--- NOTE | 2023-04-14 12:19 | PC.NURSE ---
Attempted to call report x1, awaiting call back.
--- NOTE | 2023-04-14 13:20 | PC.NURSE ---
Verbal report to Betsy on S3
--- NOTE | 2023-04-14 14:18 | HO.PM.IMPN ---
Subjective Subjective Date of Service: 04/14/23 Interval History: No acute issues overnight. States breathing somewhat improved Review of Systems Denies chest pain Admit shortness of breath with movement that has improved Denies nausea vomiting diarrhea Denies fever chills Physical Exam Vital Signs: Vital Signs: Last Vital Signs Temp 97.7 F 04/14/23 13:13 Pulse 97 04/14/23 13:13 Resp 23 H 04/14/23 13:13 BP 113/52 L 04/14/23 13:13 Pulse Ox 99 04/14/23 13:13 O2 Del Method Nasal Cannula 04/14/23 13:13 O2 Flow Rate 2 04/14/23 13:13 Oxygen Flow Rate 2 04/13/23 20:33 BMI result Body Mass Index 31.1 Const: Other: No acute distress. Lying comfortably in bed Resp: Other: Diminished with bilateral basal or expiratory crackles Cardio: Other: No S4; positive S1-S2; no S3 murmurs rubs or gallops GI: Other: Soft nontender nondistended normoactive bowel sounds Extrem: Other: Bilateral edema Objective Data Active Medications Acetaminophen (Acetaminophen 325 Mg Tablet) 650 mg PO Q6H PRN PRN Reason: Pain, Mild (Pain Scale 1-3) Last Admin: 04/14/23 08:11 Dose: 650 mg Documented By: LEWIS Albuterol Sulfate (Albuterol Sulfate 90 Mcg 8 Gm Inhaler) 2 puff INHALE Q4H PRN PRN Reason: shortness of breath or wheezing Albuterol/Ipratropium (Albuterol/Iprat 2.5/0.5mg 3 Ml Ampul.Neb) 3 ml INHALE RQ4H WHILE AWAKE [facility] Last Admin: 04/14/23 12:15 Dose: 3 ml Documented By: JAMESON Albuterol/Ipratropium (Albuterol/Iprat 2.5/0.5mg 3 Ml Ampul.Neb) 3 ml INHALE Q4H PRN PRN Reason: Wheezing Apixaban (Apixaban 5 Mg Tablet) 5 mg PO BID [facility] Last Admin: 04/14/23 13:23 Dose: 5 mg Documented By: LEWIS Dextrose (Dextrose 50 % 25 Gm/50 Ml Syringe) 25 gm IVPUSH Q15M PRN; Protocol PRN Reason: per Hypoglycemia Standing Ord. Diltiazem HCl (Diltiazem Hcl Cd 240 Mg Cap.Er.Deg) 240 mg PO DAILY [facility]; Protocol Escitalopram Oxalate (Escitalopram Oxalate 5 Mg Tablet) 5 mg PO DAILY@0800 [facility] Fluticasone/Umeclidinium/Vilanterol (Fluticasone/Umeclidinium/Vilanterol 100/62.5/25 Blst.W.Dev) 1 puff INHALE RDAILY [facility] Furosemide (Furosemide 40 Mg Tablet) 40 mg PO BID [facility]; Protocol Last Admin: 04/14/23 13:24 Dose: 40 mg Documented By: LEWIS Gabapentin (Gabapentin 300 Mg Capsule) 300 mg PO BEDTIME [facility] Glucose (Glucose Gel 15 Gm Gel..Gram.) 15 gm PO Q15M PRN; Protocol PRN Reason: per Hypoglycemia Standing Ord. Azithromycin 500 mg/ Sodium (Chloride) 250 mls @ 125 mls/hr IV 2200 [facility] Last Infusion: 04/14/23 04:29 Dose: Infused Documented By: CLYDE Insulin Human Lispro (Insulin Lispro 100 Unit/Ml 3 Ml Vial) 0 unit SUBCUT QIDACHS [facility]; Protocol Last Admin: 04/14/23 12:02 Dose: 2 unit Documented By: LEWIS Lisinopril (Lisinopril 10 Mg Tablet) 10 mg PO DAILY [facility]; Protocol Last Admin: 04/14/23 13:23 Dose: 10 mg Documented By: LEWIS Losartan Potassium (Losartan Potassium 50 Mg Tablet) 50 mg PO DAILY [facility]; Protocol Last Admin: 04/14/23 13:24 Dose: 50 mg Documented By: LEWIS Melatonin (Melatonin 3 Mg Tablet) 6 mg PO BEDTIME PRN PRN Reason: Insomnia Methylprednisolone Sodium Succinate (Methylprednisolone Sod Succ 125 Mg/2 Ml Vial) 60 mg IVPUSH Q6H [facility] Last Admin: 04/14/23 13:23 Dose: 60 mg Documented By: LEWIS Montelukast Sodium (Montelukast Sodium 10 Mg Tablet) 10 mg PO DAILY@0800 [facility] Ondansetron HCl (Ondansetron Hcl 4 Mg/2 Ml Vial) 4 mg IVPUSH Q8H PRN PRN Reason: Nausea and Vomiting Last Admin: 04/14/23 08:11 Dose: 4 mg Documented By: LEWIS Pravastatin Sodium (Pravastatin Sodium 40 Mg Tablet) 40 mg PO DAILY@0800 [facility] Ropinirole HCl (Ropinirole Hcl 0.25 Mg Tablet) 0.25 mg PO DAILY@2000 [facility] Sodium Chloride (0.9 % Sodium Chloride Flush 3 Ml Syringe) 3 ml IVFLUSH QSHIFT [facility] Last Admin: 04/14/23 07:42 Dose: Not Given Documented By: LEWIS Non-Admin Reason: assessed no action needed Labs 04/13/23 13:15 04/14/23 04:07 Labs: Laboratory Results - last 24 hr 04/13/23 04/13/23 04/14/23 13:15 22:11 04:07 Hold Purple Top SEE NOTE Anion Gap 15 Estim Creat Clear Calc 60.7 Estimated GFR > 60 POC Glucose Random Glucose 214 H Estimat Average Glucose 120 Hemoglobin A1c % 5.8 Calcium 8.5 Total Bilirubin 0.2 AST 15 ALT 8 Alkaline Phosphatase 80 Total Protein 7.2 Albumin 3.4 L S. pyogenes GrpA [facility] Negative 04/14/23 04/14/23 04/14/23 05:30 07:19 11:50 Hold Purple Top Anion Gap Estim Creat Clear Calc Estimated GFR POC Glucose 166 H 150 H 158 H Random Glucose Estimat Average Glucose Hemoglobin A1c % Calcium Total Bilirubin AST ALT Alkaline Phosphatase Total Protein Albumin S. pyogenes GrpA [facility]I Assessment and Plan (1) Acute exacerbation of chronic obstructive airways disease: Status: Acute Plan This is a 82-year-old female with pertinent history of chronic hypoxemic respiratory failure due to COPD, baseline p.r.n. 2 L supplemental oxygen, paroxysmal atrial fibrillation on anticoagulation, essential hypertension, mixed hyperlipidemia, leg edema due to venous insufficiency on Lasix, mood disorder who presents to the emergency department for evaluation of dyspnea. 1.Acute on chronic hypoxemic respiratory failure due to acute exacerbation of COPD -azithromycin as ordered -titrate O2 to maintain sats greater than equal to 90% -albuterol nebs p.r.n. -pulse dose steroid 2.Essential hypertension -acceptable control on current therapies -adjust as indicated 3.Paroxysmal atrial fibrillation -rate control acceptable -continue Eliquis 4. Dm 2 -acceptable control -lispro correctional scale -adjust as indicated Eliquis Full code Will require ongoing hospitalization for IV antibiotics and IV steroids to treat COPD exacerbation Time Spent With Patient Time: Total time managing care of this patient today ____ minutes. Quality Stroke Does the patient have a stroke diagnosis?: No VTE Prior VTE?: No VTE Risk Level:: Medical - moderate - high VTE Device Contraindication: Treatment Not Indicated VTE Drug Contraindication: N/A - Med Ordered
[2023-04-14 16:55] LABS: Glucose, Whole Blood 348 mg/dL (60-115)
[2023-04-14] MEDS: Insulin Lispro 100 UNIT/ML 3 ML VIAL SUBCUT ×2 (17:11→21:10)
[2023-04-14] MEDS: methylPREDNISolone Sod Succ 125 MG/2 ML VIAL 60 MG IVPUSH (20:02)
[2023-04-14] MEDS: Gabapentin 300 MG CAPSULE PO (20:03)
[2023-04-14] MEDS: Furosemide 40 MG TABLET PO (20:03)
[2023-04-14] MEDS: rOPINIRole HCL 0.25 MG TABLET PO (20:04)
[2023-04-14] MEDS: Apixaban 5 MG TABLET PO (20:04)
[2023-04-14 20:05] LABS: Glucose, Whole Blood 288 mg/dL (60-115)
[2023-04-14] MEDS: Albuterol/Iprat 2.5/0.5MG 3 ML AMPUL.NEB INHALE (20:38)
[2023-04-14] MEDS: Benzonatate 100 MG CAPSULE 200 MG PO (21:54)
[2023-04-14] MEDS: Azithromycin 500 MG in 0.9 % Sodium Chloride 250 ML 125 MG IV (21:54)
[2023-04-15] VITALS (7 sets, daily range): BP systolic 117–127; BP diastolic 56–60; PULSE 76–100; RESP 16–20; TEMP 36.3–36.6; O2SAT 93–95
[2023-04-15] MEDS: 0.9 % Sodium Chloride Flush 3 ML SYRINGE IVFLUSH ×4 (00:01→19:55)
[2023-04-15] MEDS: methylPREDNISolone Sod Succ 125 MG/2 ML VIAL 60 MG IVPUSH ×2 (02:43→08:13)
[2023-04-15 06:56] LABS: MANUAL DIFF FLAG NO
[2023-04-15 06:59] LABS: Hematocrit 34.1 % (37.0-47.0); Hemoglobin 10.6 g/dl (12.0-16.0); Imm Gran Abs Auto 0.02 X10*3/uL (0.00-0.03); Imm Gran Pct Auto 0.3 % (0.0-0.4); Lymphocytes Absolute Auto 0.5 X10*3/uL (1.2-4.9); Lymphocytes Percent Auto 7.8 % (20-40); Mean Corpuscular HGB Conc 31.1 g/dl (31.0-35.0); Mean Corpuscular Hemoglobin 27.3 pg (27.0-33.0); Mean Corpuscular Volume 87.9 fL (80.0-98.0); Mean Platelet Volume 10.6 fL (9.4-12.3); Monocytes Absolute Auto 0.1 X10*3/uL (0.1-1.2); Monocytes Percent Auto 2.1 % (2-11); Neutrophils Absolute Auto 5.5 x10*3/uL (2.0-8.3); Neutrophils Percent Auto 89.8 % (45-73); Platelet Count 368 X10*3/uL (160-400); Red Blood Count 3.88 X10*6/uL (4.20-5.50); Red Cell Distribution Width 14.1 % (11.0-16.0); White Blood Count 6.2 X10*3/uL (4.8-10.8)
[2023-04-15 07:21] LABS: Alanine Aminotransferase 8 U/L (0-31); Albumin Level 3.4 g/dL (3.5-5.0); Alkaline Phosphatase 78 U/L (39-117); Anion Gap 14 (12-20); Aspartate Amino Transferase 13 U/L (5-31); Bilirubin Total 0.1 mg/dL (0.0-1.0); Blood Urea Nitrogen 23 mg/dL (9-16); Calcium 8.8 mg/dL (8.4-10.2); Carbon Dioxide 26 mmol/L (22-29); Chloride 98 mmol/L (96-108); Estimated Glomerular Filt Rate > 60; Glucose Fasting 236 mg/dL (60-99); Sodium 134 mmol/L (135-145); Total Protein 7.2 g/dL (6.5-8.0)
[2023-04-15 07:35] LABS: Glucose, Whole Blood 216 mg/dL (60-115)
[2023-04-15] MEDS: Albuterol/Iprat 2.5/0.5MG 3 ML AMPUL.NEB INHALE ×3 (07:40→20:29)
[2023-04-15] MEDS: lisinopriL 10 MG TABLET PO (08:10)
[2023-04-15] MEDS: Montelukast Sodium 10 MG TABLET PO (08:11)
[2023-04-15] MEDS: Furosemide 40 MG TABLET PO ×2 (08:11→19:55)
[2023-04-15] MEDS: Pravastatin Sodium 40 MG TABLET PO (08:12)
[2023-04-15] MEDS: dilTIAZem HCL CD 240 MG CAP.ER.DEG PO (08:12)
[2023-04-15] MEDS: Apixaban 5 MG TABLET PO ×2 (08:12→19:55)
[2023-04-15] MEDS: Losartan Potassium 50 MG TABLET PO (08:12)
[2023-04-15] MEDS: Insulin Lispro 100 UNIT/ML 3 ML VIAL SUBCUT ×4 (08:13→20:51)
[2023-04-15] MEDS: Escitalopram Oxalate 5 MG TABLET PO (09:21)
[2023-04-15] MEDS: Benzonatate 100 MG CAPSULE 200 MG PO ×3 (09:21→22:03)
[2023-04-15 10:12] LABS: Procalcitonin < 0.02 ng/mL
[2023-04-15 11:33] LABS: Glucose, Whole Blood 302 mg/dL (60-115)
--- NOTE | 2023-04-15 12:20 | MHC.CM.PN ---
PER PHYSICIAN ROUNDS, PLAN IS HOME Wednesday04/17/23. REFERRAL TO [facility], [facility] IS NOT CONTRACTED WITH PATIENT'S [facility] INSURANCE CM TO AWAIT RESPONSE AND PLAN FROM THERE
--- NOTE | 2023-04-15 14:34 | P.PNIM_ITS ---
Subjective Subjective Date of Service: 04/15/23 Interval History: c/o cough, dyspnea, wheezing, and thick sputum no fever Review of Systems Review of Systems: Yes all other systems are reviewed and are negative Physical Exam 2 Vital Signs: Vital Signs: Last Vital Signs Temp 97.4 F 04/15/23 07:22 Pulse 86 04/15/23 07:41 Resp 16 04/15/23 07:41 BP 120/56 L 04/15/23 07:22 Pulse Ox 95 04/15/23 07:22 O2 Del Method Nasal Cannula 04/15/23 07:22 O2 Flow Rate 2.0 04/15/23 07:22 Oxygen Flow Rate 2 04/13/23 20:33 BMI result Body Mass Index 31.1 Gen: mild resp distress HEENT: sclera anicteric, moist mucus membranes Neck: supple Lungs: diffuse expiratory wheezing Heart: regular rate and rhythm, no murmurs Abd: soft, non-tender, non-distended Ext: no edema Skin: warm/well-perfused Neuro: alert and oriented x3, no focal findings Psych: appropriate affect Objective Data Active Medications Acetaminophen (Acetaminophen 325 Mg Tablet) 650 mg PO Q6H PRN PRN Reason: Pain, Mild (Pain Scale 1-3) Last Admin: 04/14/23 08:11 Dose: 650 mg Documented By: LEWIS Albuterol Sulfate (Albuterol Sulfate 90 Mcg 8 Gm Inhaler) 2 puff INHALE Q4H PRN PRN Reason: shortness of breath or wheezing Albuterol/Ipratropium (Albuterol/Iprat 2.5/0.5mg 3 Ml Ampul.Neb) 3 ml INHALE RQ4H WHILE AWAKE [facility] Last Admin: 04/15/23 11:12 Dose: Not Given Documented By: JAMESON Non-Admin Reason: Patient Refused Albuterol/Ipratropium (Albuterol/Iprat 2.5/0.5mg 3 Ml Ampul.Neb) 3 ml INHALE Q4H PRN PRN Reason: Wheezing Apixaban (Apixaban 5 Mg Tablet) 5 mg PO BID [facility] Last Admin: 04/15/23 08:12 Dose: 5 mg Documented By: STEPHAN Benzonatate (Benzonatate 100 Mg Capsule) 200 mg PO TID PRN PRN Reason: Cough Last Admin: 04/15/23 09:21 Dose: 200 mg Documented By: STEPHAN Dextrose (Dextrose 50 % 25 Gm/50 Ml Syringe) 25 gm IVPUSH Q15M PRN; Protocol PRN Reason: per Hypoglycemia Standing Ord. Diltiazem HCl (Diltiazem Hcl Cd 240 Mg Cap.Er.Deg) 240 mg PO DAILY [facility]; Protocol Last Admin: 04/15/23 08:12 Dose: 240 mg Documented By: STEPHAN Escitalopram Oxalate (Escitalopram Oxalate 5 Mg Tablet) 5 mg PO DAILY@0800 [facility] Last Admin: 04/15/23 09:21 Dose: 5 mg Documented By: STEPHAN Fluticasone/Umeclidinium/Vilanterol (Fluticasone/Umeclidinium/Vilanterol 100/62.5/25 Blst.W.Dev) 1 puff INHALE RDAILY [facility] Last Admin: 04/15/23 07:53 Dose: Not Given Documented By: JAMESON Non-Admin Reason: pharmacy called Furosemide (Furosemide 40 Mg Tablet) 40 mg PO BID [facility]; Protocol Last Admin: 04/15/23 08:11 Dose: 40 mg Documented By: STEPHAN Gabapentin (Gabapentin 300 Mg Capsule) 300 mg PO BEDTIME [facility] Last Admin: 04/14/23 20:03 Dose: 300 mg Documented By: ANKUR Glucose (Glucose Gel 15 Gm Gel..Gram.) 15 gm PO Q15M PRN; Protocol PRN Reason: per Hypoglycemia Standing Ord. Azithromycin 500 mg/ Sodium (Chloride) 250 mls @ 125 mls/hr IV 2200 [facility] Last Infusion: 04/15/23 00:03 Dose: Infused Documented By: ANKUR Insulin Human Lispro (Insulin Lispro 100 Unit/Ml 3 Ml Vial) 0 unit SUBCUT QIDACHS [facility]; Protocol Last Admin: 04/15/23 13:02 Dose: 8 unit Documented By: STEPHAN Lisinopril (Lisinopril 10 Mg Tablet) 10 mg PO DAILY [facility]; Protocol Last Admin: 04/15/23 08:10 Dose: 10 mg Documented By: STEPHAN Losartan Potassium (Losartan Potassium 50 Mg Tablet) 50 mg PO DAILY [facility]; Protocol Last Admin: 04/15/23 08:12 Dose: 50 mg Documented By: STEPHAN Melatonin (Melatonin 3 Mg Tablet) 6 mg PO BEDTIME PRN PRN Reason: Insomnia Methylprednisolone Sodium Succinate (Methylprednisolone Sod Succ 125 Mg/2 Ml Vial) 40 mg IVPUSH Q12H [facility] Montelukast Sodium (Montelukast Sodium 10 Mg Tablet) 10 mg PO DAILY@0800 [facility] Last Admin: 04/15/23 08:11 Dose: 10 mg Documented By: STEPHAN Ondansetron HCl (Ondansetron Hcl 4 Mg/2 Ml Vial) 4 mg IVPUSH Q8H PRN PRN Reason: Nausea and Vomiting Last Admin: 04/14/23 08:11 Dose: 4 mg Documented By: LEWIS Pravastatin Sodium (Pravastatin Sodium 40 Mg Tablet) 40 mg PO DAILY@0800 [facility] Last Admin: 04/15/23 08:12 Dose: 40 mg Documented By: STEPHAN Ropinirole HCl (Ropinirole Hcl 0.25 Mg Tablet) 0.25 mg PO DAILY@2000 [facility] Last Admin: 04/14/23 20:04 Dose: 0.25 mg Documented By: ANKUR Sodium Chloride (0.9 % Sodium Chloride Flush 3 Ml Syringe) 3 ml IVFLUSH QSHIFT [facility] Last Admin: 04/15/23 08:17 Dose: 3 ml Documented By: STEPHAN Labs 04/15/23 06:24 04/15/23 06:24 Labs: Laboratory Results - last 24 hr 04/14/23 04/14/23 04/15/23 16:42 20:01 06:24 MCV 87.9 MCH 27.3 MCHC 31.1 RDW 14.1 Plt Count 368 MPV 10.6 Immature Gran % (Auto) 0.3 Neut % (Auto) 89.8 H Lymph % (Auto) 7.8 L Barren % (Auto) 2.1 Eos % (Auto) 0.0 Baso % (Auto) 0.0 Lymph # (Auto) 0.5 L Barren # (Auto) 0.1 Eos # (Auto) 0.0 Baso # (Auto) 0.0 Abs Immat Gran (auto) 0.02 Absolute Neuts (auto) 5.5 Absolute Nucleated RBC 0.000 Nucleated RBC % (auto) 0.0 Anion Gap 14 Estim Creat Clear Calc 56.0 Estimated GFR > 60 POC Glucose 348 H 288 H Fasting Glucose 236 H Calcium 8.8 Total Bilirubin 0.1 AST 13 ALT 8 Alkaline Phosphatase 78 Total Protein 7.2 Albumin 3.4 L Procalcitonin < 0.02 04/15/23 04/15/23 07:25 11:23 MCV MCH MCHC RDW Plt Count MPV Immature Gran % (Auto) Neut % (Auto) Lymph % (Auto) Barren % (Auto) Eos % (Auto) Baso % (Auto) Lymph # (Auto) Barren # (Auto) Eos # (Auto) Baso # (Auto) Abs Immat Gran (auto) Absolute Neuts (auto) Absolute Nucleated RBC Nucleated RBC % (auto) Anion Gap Estim Creat Clear Calc Estimated GFR POC Glucose 216 H 302 H Fasting Glucose Calcium Total Bilirubin AST ALT Alkaline Phosphatase Total Protein Albumin Procalcitonin Assessment and Plan (1) Acute exacerbation of chronic obstructive airways disease: Status: Acute Plan d3 82yo F with chronic hypoxic resp failure on 2L O2 at home due to COPD, paroxysmal AF on apixaban, HTN, HLD, venous insufficiency, mood disorder admitted for COPD exacerbation acute/chronic hypoxic respiratory failure due to acute COPD exac - azithromycin 04/14-04/18 - taper methylprednisolone - nebulized bronchodilators - wean O2 to home dose as tolerated - continue triple controller inhaler HTN - lisinopril, diltiazem paroxysmal AF - diltiazem for RC - apixaban for AC mood disorder - escitalopram RLS - ropinirole, gabapentin HLD - statin venous insufficiency - furosemide DM2 - correction-dose lispro VTE ppx - apixaban dispo - anticipate home in next 1-2d In my clinical judgment, the patient requires continued inpatient hospitalization for the following reasons: resp failure Time Spent With Patient Time: Total time managing care of this patient today ____35 minutes. Quality Stroke Does the patient have a stroke diagnosis?: No VTE Prior VTE?: No VTE Risk Level:: Medical - moderate - high VTE Device Contraindication: Treatment Not Indicated VTE Drug Contraindication: N/A - Med Ordered
[2023-04-15 16:00] LABS: Glucose, Whole Blood 157 mg/dL (60-115)
--- NOTE | 2023-04-15 16:06 | MHC.CM.PN ---
[facility] UNABLE TO OFFER SERVICES REFERRAL EXPANDED TO INCLUDE ADDITIONAL CHOICES.
[2023-04-15] MEDS: methylPREDNISolone Sod Succ 125 MG/2 ML VIAL 40 MG IVPUSH (19:52)
[2023-04-15] MEDS: rOPINIRole HCL 0.25 MG TABLET PO (19:54)
[2023-04-15] MEDS: Melatonin 3 MG TABLET 6 MG PO (19:55)
[2023-04-15] MEDS: Gabapentin 300 MG CAPSULE PO (19:56)
[2023-04-15 20:00] LABS: Glucose, Whole Blood 197 mg/dL (60-115)
[2023-04-15] MEDS: Azithromycin 500 MG in 0.9 % Sodium Chloride 250 ML 125 MG IV (22:03)
[2023-04-16] VITALS (8 sets, daily range): BP systolic 104–138; BP diastolic 50–62; PULSE 74–91; RESP 16–20; TEMP 36.6–36.8; O2SAT 94–97
[2023-04-16 07:31] LABS: Glucose, Whole Blood 147 mg/dL (60-115)
[2023-04-16] MEDS: dilTIAZem HCL CD 240 MG CAP.ER.DEG PO (08:13)
[2023-04-16] MEDS: Furosemide 40 MG TABLET PO ×2 (08:13→20:58)
[2023-04-16] MEDS: Apixaban 5 MG TABLET PO ×2 (08:13→20:58)
[2023-04-16] MEDS: Montelukast Sodium 10 MG TABLET PO (08:13)
[2023-04-16] MEDS: lisinopriL 10 MG TABLET PO (08:13)
[2023-04-16] MEDS: Escitalopram Oxalate 5 MG TABLET PO (08:13)
[2023-04-16] MEDS: Losartan Potassium 50 MG TABLET PO (08:13)
[2023-04-16] MEDS: Pravastatin Sodium 40 MG TABLET PO (08:14)
[2023-04-16] MEDS: methylPREDNISolone Sod Succ 125 MG/2 ML VIAL 40 MG IVPUSH ×2 (08:14→20:53)
[2023-04-16] MEDS: Acetaminophen 325 MG TABLET 650 MG PO ×2 (08:14→20:58)
[2023-04-16] MEDS: 0.9 % Sodium Chloride Flush 3 ML SYRINGE IVFLUSH ×3 (08:14→20:49)
[2023-04-16] MEDS: Albuterol/Iprat 2.5/0.5MG 3 ML AMPUL.NEB INHALE ×4 (09:03→19:18)
[2023-04-16] MEDS: Fluticasone/Umeclidinium/Vilanterol 100/62.5/25 BLST.W.DEV 1 PUFF INHALE (09:04)
--- NOTE | 2023-04-16 10:41 | MHC.CM.PN ---
[facility] IS OFFERING SERVICES WITH START OF CARE 04/19/23.
[2023-04-16 11:08] LABS: Glucose, Whole Blood 300 mg/dL (60-115)
[2023-04-16] MEDS: Insulin Lispro 100 UNIT/ML 3 ML VIAL SUBCUT ×3 (11:58→20:56)
--- NOTE | 2023-04-16 13:04 | P.PNIM_ITS ---
Subjective Subjective Date of Service: 04/16/23 Interval History: c/o dyspnea, wheeze, cough Review of Systems Review of Systems: Yes all other systems are reviewed and are negative Physical Exam 2 Vital Signs: Vital Signs: Last Vital Signs Temp 98.1 F 04/16/23 06:59 Pulse 79 04/16/23 12:47 Resp 17 04/16/23 12:47 BP 138/62 04/16/23 06:59 Pulse Ox 96 04/16/23 06:59 O2 Del Method Nasal Cannula 04/16/23 07:01 O2 Flow Rate 2 04/16/23 07:01 Oxygen Flow Rate 2 04/13/23 20:33 BMI result Body Mass Index 31.1 Gen: no acute distress HEENT: sclera anicteric, moist mucus membranes Neck: supple Lungs: scattered expiratory wheezes Heart: regular rate and rhythm, no murmurs Abd: soft, non-tender, non-distended Ext: no edema Skin: warm/well-perfused Neuro: alert and oriented x3, no focal findings Psych: appropriate affect Objective Data Active Medications Acetaminophen (Acetaminophen 325 Mg Tablet) 650 mg PO Q6H PRN PRN Reason: Pain, Mild (Pain Scale 1-3) Last Admin: 04/16/23 08:14 Dose: 650 mg Documented By: MANA Albuterol Sulfate (Albuterol Sulfate 90 Mcg 8 Gm Inhaler) 2 puff INHALE Q4H PRN PRN Reason: shortness of breath or wheezing Albuterol/Ipratropium (Albuterol/Iprat 2.5/0.5mg 3 Ml Ampul.Neb) 3 ml INHALE RQ4H WHILE AWAKE [facility] Last Admin: 04/16/23 12:46 Dose: 3 ml Documented By: BEAN Albuterol/Ipratropium (Albuterol/Iprat 2.5/0.5mg 3 Ml Ampul.Neb) 3 ml INHALE Q4H PRN PRN Reason: Wheezing Apixaban (Apixaban 5 Mg Tablet) 5 mg PO BID [facility] Last Admin: 04/16/23 08:13 Dose: 5 mg Documented By: MANA Benzonatate (Benzonatate 100 Mg Capsule) 200 mg PO TID PRN PRN Reason: Cough Last Admin: 04/15/23 22:03 Dose: 200 mg Documented By: ALEJANDRO Dextrose (Dextrose 50 % 25 Gm/50 Ml Syringe) 25 gm IVPUSH Q15M PRN; Protocol PRN Reason: per Hypoglycemia Standing Ord. Diltiazem HCl (Diltiazem Hcl Cd 240 Mg Cap.Er.Deg) 240 mg PO DAILY [facility]; Protocol Last Admin: 04/16/23 08:13 Dose: 240 mg Documented By: MANA Escitalopram Oxalate (Escitalopram Oxalate 5 Mg Tablet) 5 mg PO DAILY@0800 [facility] Last Admin: 04/16/23 08:13 Dose: 5 mg Documented By: MANA Fluticasone/Umeclidinium/Vilanterol (Fluticasone/Umeclidinium/Vilanterol 100/62.5/25 Blst.W.Dev) 1 puff INHALE RDAILY [facility] Last Admin: 04/16/23 09:04 Dose: 1 puff Documented By: BEAN Furosemide (Furosemide 40 Mg Tablet) 40 mg PO BID [facility]; Protocol Last Admin: 04/16/23 08:13 Dose: 40 mg Documented By: MANA Gabapentin (Gabapentin 300 Mg Capsule) 300 mg PO BEDTIME [facility] Last Admin: 04/15/23 19:56 Dose: 300 mg Documented By: ALEJANDRO Glucose (Glucose Gel 15 Gm Gel..Gram.) 15 gm PO Q15M PRN; Protocol PRN Reason: per Hypoglycemia Standing Ord. Azithromycin 500 mg/ Sodium (Chloride) 250 mls @ 125 mls/hr IV 2200 [facility] Last Infusion: 04/16/23 00:08 Dose: Infused Documented By: ALEJANDRO Insulin Human Lispro (Insulin Lispro 100 Unit/Ml 3 Ml Vial) 0 unit SUBCUT QIDACHS [facility]; Protocol Last Admin: 04/16/23 11:58 Dose: 6 unit Documented By: MANA Lisinopril (Lisinopril 10 Mg Tablet) 10 mg PO DAILY [facility]; Protocol Last Admin: 04/16/23 08:13 Dose: 10 mg Documented By: MANA Losartan Potassium (Losartan Potassium 50 Mg Tablet) 50 mg PO DAILY [facility]; Protocol Last Admin: 04/16/23 08:13 Dose: 50 mg Documented By: MANA Melatonin (Melatonin 3 Mg Tablet) 6 mg PO BEDTIME PRN PRN Reason: Insomnia Last Admin: 04/15/23 19:55 Dose: 6 mg Documented By: ALEJANDRO Methylprednisolone Sodium Succinate (Methylprednisolone Sod Succ 125 Mg/2 Ml Vial) 40 mg IVPUSH Q12H [facility] Last Admin: 04/16/23 08:14 Dose: 40 mg Documented By: MANA Montelukast Sodium (Montelukast Sodium 10 Mg Tablet) 10 mg PO DAILY@0800 [facility] Last Admin: 04/16/23 08:13 Dose: 10 mg Documented By: MANA Ondansetron HCl (Ondansetron Hcl 4 Mg/2 Ml Vial) 4 mg IVPUSH Q8H PRN PRN Reason: Nausea and Vomiting Last Admin: 04/14/23 08:11 Dose: 4 mg Documented By: LEWIS Pravastatin Sodium (Pravastatin Sodium 40 Mg Tablet) 40 mg PO DAILY@0800 [facility] Last Admin: 04/16/23 08:14 Dose: 40 mg Documented By: MANA Ropinirole HCl (Ropinirole Hcl 0.25 Mg Tablet) 0.25 mg PO DAILY@1999 [facility] Last Admin: 04/15/23 19:54 Dose: 0.25 mg Documented By: ALEJANDRO Sodium Chloride (0.9 % Sodium Chloride Flush 3 Ml Syringe) 3 ml IVFLUSH QSHIFT [facility] Last Admin: 04/16/23 08:14 Dose: 3 ml Documented By: MANA Labs 04/15/23 06:24 04/15/23 06:24 Labs: Laboratory Results - last 24 hr 04/15/23 04/15/23 04/16/23 15:56 19:55 07:23 POC Glucose 157 H 197 H 147 H 04/16/23 11:02 POC Glucose 300 H Microbiology Microbiology Results: Microbiology 04/15/23 16:40 Gram Stain - Final Sputum - Expectorated Sputum Culture - Preliminary Culture in progress. Assessment and Plan (1) Acute exacerbation of chronic obstructive airways disease: Status: Acute Plan d4 82yo F with chronic hypoxic resp failure on 2L O2 at home due to COPD, paroxysmal AF on apixaban, HTN, HLD, venous insufficiency, mood disorder admitted for COPD exacerbation acute/chronic hypoxic respiratory failure due to acute COPD exac - azithromycin 04/14-04/18 - taper methylprednisolone - nebulized bronchodilators - weaned O2 to home dose as tolerated - continue triple controller inhaler HTN - lisinopril, diltiazem paroxysmal AF - diltiazem for RC - apixaban for AC mood disorder - escitalopram RLS - ropinirole, gabapentin HLD - statin venous insufficiency - furosemide DM2 - correction-dose lispro VTE ppx - apixaban dispo - anticipate home possibly tomorrow In my clinical judgment, the patient requires continued inpatient hospitalization for the following reasons: resp failure Time Spent With Patient Time: Total time managing care of this patient today ___35_ minutes. Quality Stroke Does the patient have a stroke diagnosis?: No VTE Prior VTE?: No VTE Risk Level:: Medical - moderate - high VTE Device Contraindication: Treatment Not Indicated VTE Drug Contraindication: N/A - Med Ordered
[2023-04-16] MEDS: Benzonatate 100 MG CAPSULE 200 MG PO (15:24)
[2023-04-16 16:17] LABS: Glucose, Whole Blood 193 mg/dL (60-115)
[2023-04-16 20:12] LABS: Glucose, Whole Blood 186 mg/dL (60-115)
[2023-04-16] MEDS: ondansetron HCL 4 MG/2 ML VIAL IVPUSH (20:49)
[2023-04-16] MEDS: rOPINIRole HCL 0.25 MG TABLET PO (20:58)
[2023-04-16] MEDS: Gabapentin 300 MG CAPSULE PO (20:58)
[2023-04-16] MEDS: Azithromycin 500 MG in 0.9 % Sodium Chloride 250 ML 125 MG IV (21:14)
[2023-04-17] VITALS (8 sets, daily range): BP systolic 120–142; BP diastolic 59–68; PULSE 78–93; RESP 18–20; TEMP 36.3–36.7; O2SAT 94–97
[2023-04-17] MEDS: Fluticasone/Umeclidinium/Vilanterol 100/62.5/25 BLST.W.DEV 1 PUFF INHALE (08:11)
[2023-04-17] MEDS: Albuterol/Iprat 2.5/0.5MG 3 ML AMPUL.NEB INHALE ×4 (08:11→19:36)
[2023-04-17 08:14] LABS: Glucose, Whole Blood 149 mg/dL (60-115)
[2023-04-17] MEDS: Escitalopram Oxalate 5 MG TABLET PO (08:54)
[2023-04-17] MEDS: Apixaban 5 MG TABLET PO ×2 (08:54→21:39)
[2023-04-17] MEDS: 0.9 % Sodium Chloride Flush 3 ML SYRINGE IVFLUSH ×3 (08:54→21:50)
[2023-04-17] MEDS: methylPREDNISolone Sod Succ 125 MG/2 ML VIAL 40 MG IVPUSH ×2 (08:54→21:35)
[2023-04-17] MEDS: lisinopriL 10 MG TABLET PO (08:55)
[2023-04-17] MEDS: Furosemide 40 MG TABLET PO ×2 (08:55→21:40)
[2023-04-17] MEDS: dilTIAZem HCL CD 240 MG CAP.ER.DEG PO (08:55)
[2023-04-17] MEDS: Montelukast Sodium 10 MG TABLET PO (08:55)
[2023-04-17] MEDS: Pravastatin Sodium 40 MG TABLET PO (08:55)
[2023-04-17] MEDS: Losartan Potassium 50 MG TABLET PO (08:55)
[2023-04-17 11:23] LABS: Glucose, Whole Blood 293 mg/dL (60-115)
--- NOTE | 2023-04-17 11:34 | P.PNIM_ITS ---
Subjective Subjective Date of Service: 04/17/23 Interval History: still wheezing maritza L side coughing Review of Systems Review of Systems: Yes all other systems are reviewed and are negative Physical Exam 2 Vital Signs: Vital Signs: Last Vital Signs Temp 97.7 F 04/17/23 07:31 Pulse 80 04/17/23 08:11 Resp 18 04/17/23 08:11 BP 142/63 H 04/17/23 07:31 Pulse Ox 96 04/17/23 07:31 O2 Del Method Nasal Cannula 04/17/23 07:31 O2 Flow Rate 2 04/17/23 07:31 Oxygen Flow Rate 2 04/13/23 20:33 BMI result Body Mass Index 31.1 Gen: no acute distress HEENT: sclera anicteric, moist mucus membranes Neck: supple Lungs: expiratory wheezing, L>R Heart: regular rate and rhythm, no murmurs Abd: soft, non-tender, non-distended Ext: no edema Skin: warm/well-perfused Neuro: alert and oriented x3, no focal findings Psych: appropriate affect Objective Data Active Medications Acetaminophen (Acetaminophen 325 Mg Tablet) 650 mg PO Q6H PRN PRN Reason: Pain, Mild (Pain Scale 1-3) Last Admin: 04/16/23 20:58 Dose: 650 mg Documented By: NATHAN Albuterol Sulfate (Albuterol Sulfate 90 Mcg 8 Gm Inhaler) 2 puff INHALE Q4H PRN PRN Reason: shortness of breath or wheezing Albuterol/Ipratropium (Albuterol/Iprat 2.5/0.5mg 3 Ml Ampul.Neb) 3 ml INHALE RQ4H WHILE AWAKE [facility] Last Admin: 04/17/23 08:11 Dose: 3 ml Documented By: MUMTAZ Albuterol/Ipratropium (Albuterol/Iprat 2.5/0.5mg 3 Ml Ampul.Neb) 3 ml INHALE Q2H PRN PRN Reason: Wheezing Apixaban (Apixaban 5 Mg Tablet) 5 mg PO BID [facility] Last Admin: 04/17/23 08:54 Dose: 5 mg Documented By: BISHNU Benzonatate (Benzonatate 100 Mg Capsule) 200 mg PO TID PRN PRN Reason: Cough Last Admin: 04/16/23 15:24 Dose: 200 mg Documented By: MANA Dextrose (Dextrose 50 % 25 Gm/50 Ml Syringe) 25 gm IVPUSH Q15M PRN; Protocol PRN Reason: per Hypoglycemia Standing Ord. Diltiazem HCl (Diltiazem Hcl Cd 240 Mg Cap.Er.Deg) 240 mg PO DAILY [facility]; Protocol Last Admin: 04/17/23 08:55 Dose: 240 mg Documented By: BISHNU Escitalopram Oxalate (Escitalopram Oxalate 5 Mg Tablet) 5 mg PO DAILY@0800 [facility] Last Admin: 04/17/23 08:54 Dose: 5 mg Documented By: BISHNU Fluticasone/Umeclidinium/Vilanterol (Fluticasone/Umeclidinium/Vilanterol 100/62.5/25 Blst.W.Dev) 1 puff INHALE RDAILY [facility] Last Admin: 04/17/23 08:11 Dose: 1 puff Documented By: MUMTAZ Furosemide (Furosemide 40 Mg Tablet) 40 mg PO BID [facility]; Protocol Last Admin: 04/17/23 08:55 Dose: 40 mg Documented By: BISHNU Gabapentin (Gabapentin 300 Mg Capsule) 300 mg PO BEDTIME [facility] Last Admin: 04/16/23 20:58 Dose: 300 mg Documented By: NATHAN Glucose (Glucose Gel 15 Gm Gel..Gram.) 15 gm PO Q15M PRN; Protocol PRN Reason: per Hypoglycemia Standing Ord. Azithromycin 500 mg/ Sodium (Chloride) 250 mls @ 125 mls/hr IV 2200 [facility] Last Infusion: 04/16/23 23:21 Dose: Infused Documented By: NATHAN Insulin Human Lispro (Insulin Lispro 100 Unit/Ml 3 Ml Vial) 0 unit SUBCUT QIDACHS [facility]; Protocol Last Admin: 04/17/23 08:36 Dose: Not Given Documented By: BISHNU Non-Admin Reason: No Insulin Coverage Lisinopril (Lisinopril 10 Mg Tablet) 10 mg PO DAILY [facility]; Protocol Last Admin: 04/17/23 08:55 Dose: 10 mg Documented By: BISHNU Losartan Potassium (Losartan Potassium 50 Mg Tablet) 50 mg PO DAILY [facility]; Protocol Last Admin: 04/17/23 08:55 Dose: 50 mg Documented By: IBSHNU Melatonin (Melatonin 3 Mg Tablet) 6 mg PO BEDTIME PRN PRN Reason: Insomnia Last Admin: 04/15/23 19:55 Dose: 6 mg Documented By: ALEJANDRO Methylprednisolone Sodium Succinate (Methylprednisolone Sod Succ 125 Mg/2 Ml Vial) 40 mg IVPUSH Q12H [facility] Last Admin: 04/17/23 08:54 Dose: 40 mg Documented By: BISHNU Montelukast Sodium (Montelukast Sodium 10 Mg Tablet) 10 mg PO DAILY@0800 [facility] Last Admin: 04/17/23 08:55 Dose: 10 mg Documented By: BISHNU Ondansetron HCl (Ondansetron Hcl 4 Mg/2 Ml Vial) 4 mg IVPUSH Q8H PRN PRN Reason: Nausea and Vomiting Last Admin: 04/16/23 20:49 Dose: 4 mg Documented By: NATHAN Pravastatin Sodium (Pravastatin Sodium 40 Mg Tablet) 40 mg PO DAILY@0800 [facility] Last Admin: 04/17/23 08:55 Dose: 40 mg Documented By: BISHNU Ropinirole HCl (Ropinirole Hcl 0.25 Mg Tablet) 0.25 mg PO DAILY@2000 [facility] Last Admin: 04/16/23 20:58 Dose: 0.25 mg Documented By: NATHAN Sodium Chloride (0.9 % Sodium Chloride Flush 3 Ml Syringe) 3 ml IVFLUSH QSHIFT [facility] Last Admin: 04/17/23 08:54 Dose: 3 ml Documented By: BISHNU Labs 04/15/23 06:24 04/15/23 06:24 Labs: Laboratory Results - last 24 hr 04/16/23 04/16/23 04/17/23 16:04 20:03 07:34 POC Glucose 193 H 186 H 149 H 04/17/23 11:13 POC Glucose 293 H Microbiology Microbiology Results: Microbiology 04/15/23 16:40 Gram Stain - Final Sputum - Expectorated Sputum Culture - Final Assessment and Plan (1) Acute exacerbation of chronic obstructive airways disease: Status: Acute Plan d5 82yo F with chronic hypoxic resp failure on 2L O2 at home due to COPD, paroxysmal AF on apixaban, HTN, HLD, venous insufficiency, mood disorder admitted for COPD exacerbation acute/chronic hypoxic respiratory failure due to acute COPD exac - azithromycin 04/14-04/18 - taper methylprednisolone - nebulized bronchodilators - weaned O2 to home dose as tolerated - continue triple controller inhaler HTN - lisinopril, diltiazem paroxysmal AF - diltiazem for RC - apixaban for AC mood disorder - escitalopram RLS - ropinirole, gabapentin HLD - statin venous insufficiency - furosemide DM2 - correction-dose lispro VTE ppx - apixaban dispo - anticipate home possibly tomorrow In my clinical judgment, the patient requires continued inpatient hospitalization for the following reasons: ongoing extensive wheezing- COPD exacerb ation Time Spent With Patient Time: Total time managing care of this patient today __35__ minutes. Quality Stroke Does the patient have a stroke diagnosis?: No VTE Prior VTE?: No VTE Risk Level:: Medical - moderate - high VTE Device Contraindication: Treatment Not Indicated VTE Drug Contraindication: N/A - Med Ordered
[2023-04-17] MEDS: Insulin Lispro 100 UNIT/ML 3 ML VIAL SUBCUT ×3 (12:32→21:40)
[2023-04-17 16:09] LABS: Glucose, Whole Blood 151 mg/dL (60-115)
[2023-04-17] MEDS: Benzonatate 100 MG CAPSULE 200 MG PO ×2 (17:18→23:54)
[2023-04-17 21:07] LABS: Glucose, Whole Blood 242 mg/dL (60-115)
[2023-04-17] MEDS: Gabapentin 300 MG CAPSULE PO (21:40)
[2023-04-17] MEDS: rOPINIRole HCL 0.25 MG TABLET PO (21:40)
[2023-04-17] MEDS: Azithromycin 500 MG in 0.9 % Sodium Chloride 250 ML 125 MG IV (21:49)
[2023-04-18] VITALS (7 sets, daily range): BP systolic 129–137; BP diastolic 58–61; PULSE 74–92; RESP 16–18; TEMP 36.1–36.6; O2SAT 92–95
[2023-04-18] MEDS: Melatonin 3 MG TABLET 6 MG PO ×2 (00:32→22:40)
[2023-04-18 07:38] LABS: Glucose, Whole Blood 151 mg/dL (60-115)
[2023-04-18] MEDS: Albuterol/Iprat 2.5/0.5MG 3 ML AMPUL.NEB INHALE ×4 (07:58→19:47)
[2023-04-18] MEDS: Benzonatate 100 MG CAPSULE 200 MG PO ×2 (08:03→21:12)
[2023-04-18] MEDS: lisinopriL 10 MG TABLET PO (08:03)
[2023-04-18] MEDS: Escitalopram Oxalate 5 MG TABLET PO (08:03)
[2023-04-18] MEDS: Apixaban 5 MG TABLET PO ×2 (08:03→20:16)
[2023-04-18] MEDS: Furosemide 40 MG TABLET PO ×2 (08:04→20:16)
[2023-04-18] MEDS: dilTIAZem HCL CD 240 MG CAP.ER.DEG PO (08:04)
[2023-04-18] MEDS: methylPREDNISolone Sod Succ 125 MG/2 ML VIAL 40 MG IVPUSH (08:04)
[2023-04-18] MEDS: Montelukast Sodium 10 MG TABLET PO (08:04)
[2023-04-18] MEDS: Insulin Lispro 100 UNIT/ML 3 ML VIAL SUBCUT ×4 (08:04→20:16)
[2023-04-18] MEDS: Pravastatin Sodium 40 MG TABLET PO (08:04)
[2023-04-18] MEDS: Losartan Potassium 50 MG TABLET PO (08:04)
[2023-04-18] MEDS: 0.9 % Sodium Chloride Flush 3 ML SYRINGE IVFLUSH ×3 (08:05→20:17)
[2023-04-18] MEDS: Fluticasone/Umeclidinium/Vilanterol 100/62.5/25 BLST.W.DEV 1 PUFF INHALE (08:09)
--- NOTE | 2023-04-18 10:08 | HO.PM.IMPN ---
Subjective Subjective Date of Service: 04/18/23 Interval History: c/o cough, dyspnea, and wheeze Review of Systems Review of Systems: Yes all other systems are reviewed and are negative Physical Exam Vital Signs: Vital Signs: Last Vital Signs Temp 97.0 F 04/18/23 07:31 Pulse 92 04/18/23 07:59 Resp 18 04/18/23 07:59 BP 137/58 L 04/18/23 07:31 Pulse Ox 94 04/18/23 07:31 O2 Del Method Nasal Cannula 04/18/23 07:31 O2 Flow Rate 2 04/18/23 07:31 Oxygen Flow Rate 2 04/13/23 20:33 BMI result Body Mass Index 31.1 Gen: no acute distress HEENT: sclera anicteric, moist mucus membranes Neck: supple Lungs: expiratory wheezing diffusely Heart: regular rate and rhythm, no murmurs Abd: soft, non-tender, non-distended Ext: no edema Skin: warm/well-perfused Neuro: alert and oriented x3, no focal findings Psych: appropriate affect Objective Data Active Medications Acetaminophen (Acetaminophen 325 Mg Tablet) 650 mg PO Q6H PRN PRN Reason: Pain, Mild (Pain Scale 1-3) Last Admin: 04/16/23 20:58 Dose: 650 mg Documented By: NATHAN Albuterol Sulfate (Albuterol Sulfate 90 Mcg 8 Gm Inhaler) 2 puff INHALE Q4H PRN PRN Reason: shortness of breath or wheezing Albuterol/Ipratropium (Albuterol/Iprat 2.5/0.5mg 3 Ml Ampul.Neb) 3 ml INHALE RQ4H WHILE AWAKE [facility] Last Admin: 04/18/23 07:58 Dose: 3 ml Documented By: MUMTAZ Albuterol/Ipratropium (Albuterol/Iprat 2.5/0.5mg 3 Ml Ampul.Neb) 3 ml INHALE Q2H PRN PRN Reason: Wheezing Apixaban (Apixaban 5 Mg Tablet) 5 mg PO BID [facility] Last Admin: 04/18/23 08:03 Dose: 5 mg Documented By: BISHNU Benzonatate (Benzonatate 100 Mg Capsule) 200 mg PO TID PRN PRN Reason: Cough Last Admin: 04/18/23 08:03 Dose: 200 mg Documented By: BISHNU Dextrose (Dextrose 50 % 25 Gm/50 Ml Syringe) 25 gm IVPUSH Q15M PRN; Protocol PRN Reason: per Hypoglycemia Standing Ord. Diltiazem HCl (Diltiazem Hcl Cd 240 Mg Cap.Er.Deg) 240 mg PO DAILY [facility]; Protocol Last Admin: 04/18/23 08:04 Dose: 240 mg Documented By: BISHNU Escitalopram Oxalate (Escitalopram Oxalate 5 Mg Tablet) 5 mg PO DAILY@0800 [facility] Last Admin: 04/18/23 08:03 Dose: 5 mg Documented By: BISHNU Fluticasone/Umeclidinium/Vilanterol (Fluticasone/Umeclidinium/Vilanterol 100/62.5/25 Blst.W.Dev) 1 puff INHALE RDAILY [facility] Last Admin: 04/18/23 08:09 Dose: 1 puff Documented By: YARA Furosemide (Furosemide 40 Mg Tablet) 40 mg PO BID [facility]; Protocol Last Admin: 04/18/23 08:04 Dose: 40 mg Documented By: BISHNU Gabapentin (Gabapentin 300 Mg Capsule) 300 mg PO BEDTIME [facility] Last Admin: 04/17/23 21:40 Dose: 300 mg Documented By: NATHAN Glucose (Glucose Gel 15 Gm Gel..Gram.) 15 gm PO Q15M PRN; Protocol PRN Reason: per Hypoglycemia Standing Ord. Azithromycin 500 mg/ Sodium (Chloride) 250 mls @ 125 mls/hr IV 2200 [facility] Last Infusion: 04/18/23 00:31 Dose: Infused Documented By: [place] Insulin Human Lispro (Insulin Lispro 100 Unit/Ml 3 Ml Vial) 0 unit SUBCUT QIDACHS [facility]; Protocol Last Admin: 04/18/23 08:04 Dose: 2 unit Documented By: BISHNU Lisinopril (Lisinopril 10 Mg Tablet) 10 mg PO DAILY [facility]; Protocol Last Admin: 04/18/23 08:03 Dose: 10 mg Documented By: BISHNU Losartan Potassium (Losartan Potassium 50 Mg Tablet) 50 mg PO DAILY [facility]; Protocol Last Admin: 04/18/23 08:04 Dose: 50 mg Documented By: BISHNU Melatonin (Melatonin 3 Mg Tablet) 6 mg PO BEDTIME PRN PRN Reason: Insomnia Last Admin: 04/18/23 00:32 Dose: 6 mg Documented By: [place] Methylprednisolone Sodium Succinate (Methylprednisolone Sod Succ 125 Mg/2 Ml Vial) 40 mg IVPUSH Q12H [facility] Last Admin: 04/18/23 08:04 Dose: 40 mg Documented By: BISHNU Montelukast Sodium (Montelukast Sodium 10 Mg Tablet) 10 mg PO DAILY@0800 [facility] Last Admin: 04/18/23 08:04 Dose: 10 mg Documented By: BISHNU Ondansetron HCl (Ondansetron Hcl 4 Mg/2 Ml Vial) 4 mg IVPUSH Q8H PRN PRN Reason: Nausea and Vomiting Last Admin: 04/16/23 20:49 Dose: 4 mg Documented By: NATHAN Pravastatin Sodium (Pravastatin Sodium 40 Mg Tablet) 40 mg PO DAILY@0800 [facility] Last Admin: 04/18/23 08:04 Dose: 40 mg Documented By: BISHNU Ropinirole HCl (Ropinirole Hcl 0.25 Mg Tablet) 0.25 mg PO DAILY@2000 [facility] Last Admin: 04/17/23 21:40 Dose: 0.25 mg Documented By: NATHAN Sodium Chloride (0.9 % Sodium Chloride Flush 3 Ml Syringe) 3 ml IVFLUSH QSHIFT [facility] Last Admin: 04/18/23 08:05 Dose: 3 ml Documented By: BISHNU Labs 04/15/23 06:24 04/15/23 06:24 Labs: Laboratory Results - last 24 hr 04/17/23 04/17/23 04/17/23 11:13 15:59 20:57 POC Glucose 293 H 151 H 242 H 04/18/23 07:33 POC Glucose 151 H Microbiology Microbiology Results: Microbiology 04/15/23 16:40 Gram Stain - Final Sputum - Expectorated Sputum Culture - Final Assessment and Plan (1) Acute exacerbation of chronic obstructive airways disease: Status: Acute Plan d5 82yo F with chronic hypoxic resp failure on 2L O2 at home due to COPD, paroxysmal AF on apixaban, HTN, HLD, venous insufficiency, mood disorder admitted for COPD exacerbation acute/chronic hypoxic respiratory failure due to acute COPD exac - azithromycin 04/14-10/15 - will give higher-dose methylprednisolone for 1 day then taper - nebulized bronchodilators - weaned O2 to home dose as tolerated - continue triple controller inhaler HTN - lisinopril, diltiazem paroxysmal AF - diltiazem for RC - apixaban for AC mood disorder - escitalopram RLS - ropinirole, gabapentin HLD - statin venous insufficiency - furosemide DM2 - correction-dose lispro VTE ppx - apixaban dispo - anticipate home possibly tomorrow In my clinical judgment, the patient requires continued inpatient hospitalization for the following reasons: ongoing extensive wheezing- COPD exacerbation Time Spent With Patient Time: Total time managing care of this patient today ___35_ minutes. Quality Stroke Does the patient have a stroke diagnosis?: No VTE Prior VTE?: No VTE Risk Level:: Medical - moderate - high VTE Device Contraindication: Treatment Not Indicated VTE Drug Contraindication: N/A - Med Ordered
[2023-04-18] MEDS: methylPREDNISolone Sod Succ 125 MG/2 ML VIAL 60 MG IVPUSH ×3 (10:43→23:42)
[2023-04-18] MEDS: Sennosides/Docusate Sodium TABLET 2 TAB PO ×2 (10:44→20:16)
[2023-04-18] MEDS: polyethylene glycoL 3350 17 GM POWD.PACK PO (10:44)
[2023-04-18 11:36] LABS: Glucose, Whole Blood 208 mg/dL (60-115)
[2023-04-18 16:35] LABS: Glucose, Whole Blood 202 mg/dL (60-115)
[2023-04-18 20:06] LABS: Glucose, Whole Blood 156 mg/dL (60-115)
[2023-04-18] MEDS: Gabapentin 300 MG CAPSULE PO (20:16)
[2023-04-18] MEDS: rOPINIRole HCL 0.25 MG TABLET PO (20:16)
[2023-04-18] MEDS: Azithromycin 500 MG in 0.9 % Sodium Chloride 250 ML 125 MG IV (21:23)
[2023-04-18] MEDS: Acetaminophen 325 MG TABLET 650 MG PO (22:40)
[2023-04-19 03:17] VITALS: BP 133/62; PULSE 87; RESP 14; TEMP 36.4; O2SAT 93
[2023-04-19] MEDS: methylPREDNISolone Sod Succ 125 MG/2 ML VIAL 60 MG IVPUSH (04:44)
[2023-04-19 07:14] VITALS: BP 133/61; PULSE 79; RESP 16; TEMP 36.1; O2SAT 97
[2023-04-19 08:00] LABS: Glucose, Whole Blood 168 mg/dL (60-115)
[2023-04-19] MEDS: Albuterol/Iprat 2.5/0.5MG 3 ML AMPUL.NEB INHALE ×2 (08:03→11:44)
[2023-04-19] MEDS: Fluticasone/Umeclidinium/Vilanterol 100/62.5/25 BLST.W.DEV 1 PUFF INHALE (08:03)
[2023-04-19 08:04] VITALS: PULSE 70; RESP 16; O2SAT 97
[2023-04-19] MEDS: 0.9 % Sodium Chloride Flush 3 ML SYRINGE IVFLUSH (09:03)
[2023-04-19] MEDS: Insulin Lispro 100 UNIT/ML 3 ML VIAL SUBCUT ×2 (09:03→12:48)
[2023-04-19] MEDS: Sennosides/Docusate Sodium TABLET 2 TAB PO (09:04)
[2023-04-19] MEDS: polyethylene glycoL 3350 17 GM POWD.PACK PO (09:04)
[2023-04-19] MEDS: lisinopriL 10 MG TABLET PO (09:04)
[2023-04-19] MEDS: Montelukast Sodium 10 MG TABLET PO (09:04)
[2023-04-19] MEDS: Escitalopram Oxalate 5 MG TABLET PO (09:04)
[2023-04-19] MEDS: Losartan Potassium 50 MG TABLET PO (09:04)
[2023-04-19] MEDS: Furosemide 40 MG TABLET PO (09:04)
[2023-04-19] MEDS: Apixaban 5 MG TABLET PO (09:04)
[2023-04-19] MEDS: Pravastatin Sodium 40 MG TABLET PO (09:04)
[2023-04-19] MEDS: dilTIAZem HCL CD 240 MG CAP.ER.DEG PO (09:05)
--- NOTE | 2023-04-19 10:36 | MHC.CM.PN ---
IMM 04/19/23, Pt has been medically cleared for DC. Her daughter is transporting her home. She will have home care services from [facility].
--- NOTE | 2023-04-19 10:38 | W.MHC.F2F ---
Service Date Service Date: 04/19/23 Encounter Date of encounter: 04/19/23 Reasons for Services Signs and symptoms assessed: Respiratory Reason for snf: medication management, medication treatment and teach disease management Reason for physical therapy: home safety and mobility, therapeutic exercises, gait/transfer training, assess need for DME, ADL training and energy conservation MD Overseeing Care: Lizandro Gibbs Homebound: Leaving the home is medically contraindicated at this time without the asist of a device and/or another person due th the listed conditions above and below. Reason homebound: shortness of breath with minimal effort and weakness related to hospital stay Certification: Based on the above findings, I certify that this patient is confined to the home and needs intermittent snf care, physical therapy and/or speech therapy, or continues to need occupational therapy. The patient is under my care, and I have initiated the establishment of the plan of care. The patient will be followed by a physician who will periodically review the plan of care. Time Spent With Patient Time: Total time managing care of this patient today ____ minutes.
--- NOTE | 2023-04-19 10:44 | P.DS_ITS ---
DS: Providers Provider Date of Service: 04/19/23 Date of admission: 04/14/23 00:37 Date of discharge: 04/19/23 Primary care physician: Lizandro Gibbs MD DS: Diagnosis Discharge Diagnosis (1) Acute exacerbation of chronic obstructive airways disease: Status: Acute (2) Lung nodule: Status: Acute (3) Acute and chronic respiratory failure with hypoxia: Status: Acute (4) Pneumonia: Status: Acute DS: Summary Hospital Course Hospital Course: from admission H+P by hospitalist Carlee Johnston, 04/14/23: This is a 82-year-old female with pertinent history of chronic hypoxemic respiratory failure due to COPD, baseline p.r.n. 2 L supplemental oxygen, paroxysmal atrial fibrillation on anticoagulation, essential hypertension, mixed hyperlipidemia, leg edema due to venous insufficiency on Lasix, mood disorder who presents to the emergency department for evaluation of dyspnea. Patient states that she has been having dyspnea worse with exertion that has been progressive over the last 7-10 days. It is associated with productive cough with clear sputum production. Also has associated wheezing. No fever or chills. Patient denies chest discomfort, palpitations, orthopnea, PND, abdominal pain, changes in urinary or bowel habits. Patient states she uses 2 L supplemental oxygen as needed and at home her oxygen was in the 70s despite her baseline supplemental oxygen. In the emergency department, patient with continued wheezing and requiring 2-3 L supplemental oxygen This 82yo F with chronic hypoxic respiratory failure on 2L O2 at home due to COPD, paroxysmal AF on apixaban, HTN, HLD, venous insufficiency, and mood disorder was admitted to the medical-surgical floor for COPD exacerbation and pneumonia with hypoxia. She was treated with IV methylprednisolone and azithromycin along with nebulized bronchodilators. RSV/flu/Covid-19 PCR and blood cultures negative, and procalcitonin was low. She gradually improved and was weaned to her home dose of oxygen. She was found to have a suspicious spiculated 9mm LOPEZ nodule that will need outpatient PET-CT. 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 She was discharged on a slow prednisone taper. Time Spent with Patient Time attestation: Total time managing care of this patient today ___40_ minutes. Discharge coordination time: Greater than 30 minutes Quality: Safe Use of Opioids Does Pt have an Active Cancer Diagnosis on the Problem List?: No Quality: Stroke Does the patient have a stroke diagnosis?: No Physical Exam Vital Signs: Vital Signs: Last Vital Signs Temp 96.9 F 04/19/23 07:14 Pulse 70 04/19/23 08:04 Resp 16 04/19/23 08:04 BP 133/61 04/19/23 07:14 Pulse Ox 97 04/19/23 07:14 O2 Del Method Nasal Cannula 04/19/23 07:14 O2 Flow Rate 2 04/19/23 07:14 Oxygen Flow Rate 2 04/13/23 20:33 BMI result Body Mass Index 31.1 DS: Data Data Completed and Pending Completed studies during hospitalization [Text1]: ITS Impressions Chest X-Ray 04/13/23 13:25 IMPRESSION: Focal airspace opacities in the left lower lobe that could be related with aspiration or pneumonia. Recommend follow-up after treatment to ensure resolution. Background of chronic air-trapping and diffuse interstitial thickening suggesting emphysema/COPD. Chest CT 04/13/23 23:40 IMPRESSION: 1. Severe emphysematous changes. 2. New 9 mm spiculated area of architectural distortion in the left upper lobe. This finding is suspicious and warrants follow-up. 3. Other incidental findings as described above. According to the UPDATED 2017 Fleischner Society recommendations, the advised follow-up imaging for a single solid nodule measuring greater than [address] at 3 months, PET/CT, or tissue sampling as clinically appropriate. Laboratory Tests 04/13/23 04/13/23 04/14/23 13:15 22:11 04:07 WBC 6.9 RBC 4.19 L Hgb 11.7 L Hct 37.8 MCV 90.2 MCH 27.9 MCHC 31.0 RDW 14.4 Plt Count 394 MPV 9.4 Immature Gran % (Auto) 0.4 Neut % (Auto) 72.8 Lymph % (Auto) 15.4 L [place] % (Auto) 9.2 Eos % (Auto) 1.0 Baso % (Auto) 1.2 Lymph # (Auto) 1.1 L [place] # (Auto) 0.6 Eos # (Auto) 0.1 Baso # (Auto) 0.1 Abs Immat Gran (auto) 0.03 Absolute Neuts (auto) 5.0 Absolute Nucleated RBC 0.000 Nucleated RBC % (auto) 0.0 Hold Purple Top SEE NOTE Sodium 136 137 Potassium 3.8 D 3.5 Chloride 100 99 Carbon Dioxide 24 27 Anion Gap 16 15 BUN 11 13 Creatinine 0.75 0.71 Estim Creat Clear Calc 57.5 60.7 Estimated GFR > 60 > 60 POC Glucose Random Glucose 211 H 214 H Fasting Glucose Estimat Average Glucose 120 Hemoglobin A1c % 5.8 Calcium 8.8 8.5 Magnesium 2.1 Total Bilirubin 0.3 0.2 Direct Bilirubin 0.1 AST 18 15 ALT 8 8 Alkaline Phosphatase 83 80 Troponin I High Sens 8.6 B-Natriuretic Peptide 184 H Total Protein 7.5 7.2 Albumin 3.3 L 3.4 L Procalcitonin Influenza Type A (PCR) NEGATIVE Influenza Type B (PCR) NEGATIVE RSV RNA Qual (PCR) NEGATIVE SARS-CoV-2 RNA (RT-PCR) NEGATIVE S. pyogenes GrpA WALI Negative 04/14/23 04/14/23 04/14/23 05:30 07:19 11:50 WBC RBC Hgb Hct MCV MCH MCHC RDW Plt Count MPV Immature Gran % (Auto) Neut % (Auto) Lymph % (Auto) [place] % (Auto) Eos % (Auto) Baso % (Auto) Lymph # (Auto) [place] # (Auto) Eos # (Auto) Baso # (Auto) Abs Immat Gran (auto) Absolute Neuts (auto) Absolute Nucleated RBC Nucleated RBC % (auto) Hold Purple Top Sodium Potassium Chloride Carbon Dioxide Anion Gap BUN Creatinine Estim Creat Clear Calc Estimated GFR POC Glucose 166 H 150 H 158 H Random Glucose Fasting Glucose Estimat Average Glucose Hemoglobin A1c % Calcium Magnesium Total Bilirubin Direct Bilirubin AST ALT Alkaline Phosphatase Troponin I High Sens B-Natriuretic Peptide Total Protein Albumin Procalcitonin Influenza Type A (PCR) Influenza Type B (PCR) RSV RNA Qual (PCR) SARS-CoV-2 RNA (RT-PCR) S. pyogenes GrpA WALI 04/14/23 04/14/23 04/15/23 16:42 20:01 06:24 WBC 6.2 RBC 3.88 L Hgb 10.6 L Hct 34.1 L MCV 87.9 MCH 27.3 MCHC 31.1 RDW 14.1 Plt Count 368 MPV 10.6 Immature Gran % (Auto) 0.3 Neut % (Auto) 89.8 H Lymph % (Auto) 7.8 L [place] % (Auto) 2.1 Eos % (Auto) 0.0 Baso % (Auto) 0.0 Lymph # (Auto) 0.5 L [place] # (Auto) 0.1 Eos # (Auto) 0.0 Baso # (Auto) 0.0 Abs Immat Gran (auto) 0.02 Absolute Neuts (auto) 5.5 Absolute Nucleated RBC 0.000 Nucleated RBC % (auto) 0.0 Hold Purple Top Sodium 134 L Potassium 4.0 Chloride 98 Carbon Dioxide 26 Anion Gap 14 BUN 23 H Creatinine 0.77 Estim Creat Clear Calc 56.0 Estimated GFR > 60 POC Glucose 348 H 288 H Random Glucose Fasting Glucose 236 H Estimat Average Glucose Hemoglobin A1c % Calcium 8.8 Magnesium Total Bilirubin 0.1 Direct Bilirubin AST 13 ALT 8 Alkaline Phosphatase 78 Troponin I High Sens B-Natriuretic Peptide Total Protein 7.2 Albumin 3.4 L Procalcitonin < 0.02 Influenza Type A (PCR) Influenza Type B (PCR) RSV RNA Qual (PCR) SARS-CoV-2 RNA (RT-PCR) S. pyogenes GrpA WALI 04/15/23 04/15/23 04/15/23 07:25 11:23 15:56 WBC RBC Hgb Hct MCV MCH MCHC RDW Plt Count MPV Immature Gran % (Auto) Neut % (Auto) Lymph % (Auto) [place] % (Auto) Eos % (Auto) Baso % (Auto) Lymph # (Auto) [place] # (Auto) Eos # (Auto) Baso # (Auto) Abs Immat Gran (auto) Absolute Neuts (auto) Absolute Nucleated RBC Nucleated RBC % (auto) Hold Purple Top Sodium Potassium Chloride Carbon Dioxide Anion Gap BUN Creatinine Estim Creat Clear Calc Estimated GFR POC Glucose 216 H 302 H 157 H Random Glucose Fasting Glucose Estimat Average Glucose Hemoglobin A1c % Calcium Magnesium Total Bilirubin Direct Bilirubin AST ALT Alkaline Phosphatase Troponin I High Sens B-Natriuretic Peptide Total Protein Albumin Procalcitonin Influenza Type A (PCR) Influenza Type B (PCR) RSV RNA Qual (PCR) SARS-CoV-2 RNA (RT-PCR) S. pyogenes GrpA WALI 04/15/23 04/16/23 04/16/23 19:55 07:23 11:02 WBC RBC Hgb Hct MCV MCH MCHC RDW Plt Count MPV Immature Gran % (Auto) Neut % (Auto) Lymph % (Auto) [place] % (Auto) Eos % (Auto) Baso % (Auto) Lymph # (Auto) [place] # (Auto) Eos # (Auto) Baso # (Auto) Abs Immat Gran (auto) Absolute Neuts (auto) Absolute Nucleated RBC Nucleated RBC % (auto) Hold Purple Top Sodium Potassium Chloride Carbon Dioxide Anion Gap BUN Creatinine Estim Creat Clear Calc Estimated GFR POC Glucose 197 H 147 H 300 H Random Glucose Fasting Glucose Estimat Average Glucose Hemoglobin A1c % Calcium Magnesium Total Bilirubin Direct Bilirubin AST ALT Alkaline Phosphatase Troponin I High Sens B-Natriuretic Peptide Total Protein Albumin Procalcitonin Influenza Type A (PCR) Influenza Type B (PCR) RSV RNA Qual (PCR) SARS-CoV-2 RNA (RT-PCR) S. pyogenes GrpA WALI 04/16/23 04/16/23 04/17/23 16:04 20:03 07:34 WBC RBC Hgb Hct MCV MCH MCHC RDW Plt Count MPV Immature Gran % (Auto) Neut % (Auto) Lymph % (Auto) [place] % (Auto) Eos % (Auto) Baso % (Auto) Lymph # (Auto) [place] # (Auto) Eos # (Auto) Baso # (Auto) Abs Immat Gran (auto) Absolute Neuts (auto) Absolute Nucleated RBC Nucleated RBC % (auto) Hold Purple Top Sodium Potassium Chloride Carbon Dioxide Anion Gap BUN Creatinine Estim Creat Clear Calc Estimated GFR POC Glucose 193 H 186 H 149 H Random Glucose Fasting Glucose Estimat Average Glucose Hemoglobin A1c % Calcium Magnesium Total Bilirubin Direct Bilirubin AST ALT Alkaline Phosphatase Troponin I High Sens B-Natriuretic Peptide Total Protein Albumin Procalcitonin Influenza Type A (PCR) Influenza Type B (PCR) RSV RNA Qual (PCR) SARS-CoV-2 RNA (RT-PCR) S. pyogenes GrpA [facility]ALI 04/17/23 04/17/23 04/17/23 11:13 15:59 20:57 WBC RBC Hgb Hct MCV MCH MCHC RDW Plt Count MPV Immature Gran % (Auto) Neut % (Auto) Lymph % (Auto) [place] % (Auto) Eos % (Auto) Baso % (Auto) Lymph # (Auto) [place] # (Auto) Eos # (Auto) Baso # (Auto) Abs Immat Gran (auto) Absolute Neuts (auto) Absolute Nucleated RBC Nucleated RBC % (auto) Hold Purple Top Sodium Potassium Chloride Carbon Dioxide Anion Gap BUN Creatinine Estim Creat Clear Calc Estimated GFR POC Glucose 293 H 151 H 242 H Random Glucose Fasting Glucose Estimat Average Glucose Hemoglobin A1c % Calcium Magnesium Total Bilirubin Direct Bilirubin AST ALT Alkaline Phosphatase Troponin I High Sens B-Natriuretic Peptide Total Protein Albumin Procalcitonin Influenza Type A (PCR) Influenza Type B (PCR) RSV RNA Qual (PCR) SARS-CoV-2 RNA (RT-PCR) S. pyogenes GrpA [facility]ALI 04/18/23 04/18/23 04/18/23 07:33 11:22 16:29 WBC RBC Hgb Hct MCV MCH MCHC RDW Plt Count MPV Immature Gran % (Auto) Neut % (Auto) Lymph % (Auto) [place] % (Auto) Eos % (Auto) Baso % (Auto) Lymph # (Auto) [place] # (Auto) Eos # (Auto) Baso # (Auto) Abs Immat Gran (auto) Absolute Neuts (auto) Absolute Nucleated RBC Nucleated RBC % (auto) Hold Purple Top Sodium Potassium Chloride Carbon Dioxide Anion Gap BUN Creatinine Estim Creat Clear Calc Estimated GFR POC Glucose 151 H 208 H 202 H Random Glucose Fasting Glucose Estimat Average Glucose Hemoglobin A1c % Calcium Magnesium Total Bilirubin Direct Bilirubin AST ALT Alkaline Phosphatase Troponin I High Sens B-Natriuretic Peptide Total Protein Albumin Procalcitonin Influenza Type A (PCR) Influenza Type B (PCR) RSV RNA Qual (PCR) SARS-CoV-2 RNA (RT-PCR) S. pyogenes GrpA [facility]ALI 04/18/23 04/19/23 20:02 07:19 WBC RBC Hgb Hct MCV MCH MCHC RDW Plt Count MPV Immature Gran % (Auto) Neut % (Auto) Lymph % (Auto) [place] % (Auto) Eos % (Auto) Baso % (Auto) Lymph # (Auto) [place] # (Auto) Eos # (Auto) Baso # (Auto) Abs Immat Gran (auto) Absolute Neuts (auto) Absolute Nucleated RBC Nucleated RBC % (auto) Hold Purple Top Sodium Potassium Chloride Carbon Dioxide Anion Gap BUN Creatinine Estim Creat Clear Calc Estimated GFR POC Glucose 156 H 168 H Random Glucose Fasting Glucose Estimat Average Glucose Hemoglobin A1c % Calcium Magnesium Total Bilirubin Direct Bilirubin AST ALT Alkaline Phosphatase Troponin I High Sens B-Natriuretic Peptide Total Protein Albumin Procalcitonin Influenza Type A (PCR) Influenza Type B (PCR) RSV RNA Qual (PCR) SARS-CoV-2 RNA (RT-PCR) S. pyogenes GrpA WALI Discharge Plan Discharge Anticipated Discharge Date/Time: 04/19/23 10:39 Patient Disposition: Home Health Service Discharge Diagnosis: COPD exacerbation Suspicious lung nodule Referrals: [facility] [Outside] - 1 Week iLzandro Gibbs MD [Primary Care Provider] - 1 Week Stan Brito MD [Physician] - 2 Weeks Discharge Medications: New prednisone 10 mg tablet See Rx Instructions .ROUTE .COMPLEX Qty: 40 0RF Rx Instructions: 40mg daily x 4 days, then 30mg daily x 4 days, then 20 mg daily x 4 days, then 10 mg daily x 4 days Continued Trelegy Ellipta 100-62.5-25 mcg blister with device 1 inh inhalation DAILY 30 Days Qty: 60 11RF gabapentin 300 mg capsule 300 mg PO BEDTIME 30 Days Qty: 30 6RF albuterol sulfate [ProAir HFA] 90 mcg/actuation HFA aerosol inhaler 2 puff inhalation Q4-6H PRN (Reason: shortness of breath or wheezing) Qty: 8.5 0RF montelukast 10 mg tablet 10 mg PO DAILY@0800 Eliquis 5 mg Tablet 5 mg PO BID Qty: 60 0RF albuterol sulfate 2.5 mg /3 mL (0.083 %) solution for nebulization 2.5 mg inhalation Q4-6H PRN (Reason: Wheezing) famotidine 20 mg tablet 20 mg PO DAILY@0800 pravastatin 40 mg tablet 40 mg PO DAILY@0800 ropinirole 0.25 mg tablet 0.25 mg PO DAILY@2000 citalopram 10 mg tablet 20 mg PO DAILY@0800 diltiazem HCl 240 mg capsule,extended release 24hr 240 mg PO DAILY Qty: 30 0RF Protocol: Hold for SBP/HR < HOLD for SBP < : 90 HOLD for HR < : 60 furosemide [Lasix] 20 mg tablet 40 mg PO BID (DME) nebulizers Misc See Rx Instructions .Route Rx Instructions: As directed (DME) Oxygen Home Use Kit See Rx Instructions .Route Rx Instructions: As directed ipratropium bromide 42 mcg (0.06 %) spray,non-aerosol 1 spray intranasal 3XD losartan 50 mg tablet 50 mg PO DAILY turmeric root extract 500 mg capsule 500 mg PO DAILY@0800 lisinopril 10 mg tablet 10 mg PO DAILY Discharge Orders: Discharge Order (Routine); Ordered 04/19/23 Ordered By: Stephenie Hall Diet: Diabetic diet Activity on Discharge: As tolerated Stand Alone Forms: Patient Portal Discharge page Care Plan Goals: pulmonary health Health Concerns: COPD exacerbation Suspicious lung nodule Plan of Treatment: prednisone 10 mg tabs, taper as follows: 40 mg (4 tabs) daily x 4 days, then 30 mg (3 tabs) daily x 4 days, then 20 mg (2 tabs) daily x 4 days, then 10 mg (1 tab) daily x 4 days continue nebulizers and inhalers follow up with Dr Brito from [facility] [place] Pulmonology in 2 weeks. you will need a PET-CT scan to assess the lung nodule. Please follow up with your primary care doctor within 1 week. Return to the hospital if you experience recurrent or worsening symptoms. Assessment: See Discharge Summary.
[2023-04-19 11:08] LABS: Glucose, Whole Blood 329 mg/dL (60-115)
[2023-04-19 11:45] VITALS: PULSE 70; RESP 16; O2SAT 97
== END 2023-04-19 13:58 | disposition home health service (06) | DRG 190 ==
LOC: HO.ED 04-14 00:21 → HO.EDOVER 04-14 01:08 → HO.S3 04-14 12:14
PROVIDERS: Hospitalist; Admitting Provider Student in an Organized Health Care Education/Training Program; Emergency Provider Internal Medicine; PCP Internal Medicine; Visit Provider Family Medicine
DX: J44.1 Chronic obstructive pulmonary disease with (acute) exacerbation (principal); J96.21 Acute and chronic respiratory failure with hypoxia; E78.2 Mixed hyperlipidemia; I48.0 Paroxysmal atrial fibrillation; F39 Unspecified mood [affective] disorder; E11.65 Type 2 diabetes mellitus with hyperglycemia; R91.1 Solitary pulmonary nodule; G25.81 Restless legs syndrome; I87.2 Venous insufficiency (chronic) (peripheral); Z20.822 Contact with and (suspected) exposure to COVID-19; Z99.81 Dependence on supplemental oxygen; Z79.01 Long term (current) use of anticoagulants; Z79.51 Long term (current) use of inhaled steroids; Z79.899 Other long term (current) drug therapy
CPT/HCPCS: 0241U; 36415; 71046; 71250; 80048; 80053; 80076; 82947; 83036; 83735; 83880; 84145; 84484; 85025; 87070; 87205; 87651; 93005; 97161; 99285; J0456; J0696; J2405; J2920; J2930

== ENCOUNTER → 2023-04-13 21:59 | Outpatient (BNV) | payer MEDICARE, MEDICAID, SELFPAY | PROVIDERS: Emergency Provider Internal Medicine; Visit Provider Student in an Organized Health Care Education/Training Program | DX: J44.1 Chronic obstructive pulmonary disease with (acute) exacerbation (principal); J96.21 Acute and chronic respiratory failure with hypoxia; R91.1 Solitary pulmonary nodule; J18.9 Pneumonia, unspecified organism | CPT/HCPCS: 99222; 99232; 99233; 99239; G0180 ==

== ENCOUNTER 2023-04-29 13:00 | Outpatient (REF) | payer MEDICARE, MEDICAID, SELFPAY | END 2023-04-29 13:01 | disposition home or self-care (01) | LOC: HO.LNP 13:00 | PROVIDERS: PCP Internal Medicine; Visit Provider Hospitalist | DX: J44.0 Chronic obstructive pulmonary disease with (acute) lower respiratory infection (principal); J96.11 Chronic respiratory failure with hypoxia; R05.3 Chronic cough; I27.20 Pulmonary hypertension, unspecified; J90 Pleural effusion, not elsewhere classified; J18.0 Bronchopneumonia, unspecified organism | CPT/HCPCS: 87070; 87205; 94640; 99212 ==

== ENCOUNTER 2023-04-29 13:00 | Outpatient (AMB) | payer MEDICARE, MEDICAID, SELFPAY ==
--- NOTE | 2023-04-29 13:10 | MHC.OFFVIS ---
Intake Vital Signs 04/29/23 13:14 Height 5 ft Weight 178 lb 9.191 oz BMI 34.9 BP 128/70 Blood Pressure Location Rt brachial Position Sitting Pulse 66 Pulse Source Pulse Oximeter Pulse Oximetry (%) 93 Oxygen Delivery Method Nasal Cannula Oxygen Flow Rate 3 Intake Visit Reasons: hospital f/u, persistent cough Production Material Coordinator Required: No Public Health Epidemiologist: Public Health Epidemiologist offered & declined Accompanied by: Daughter Allergies No Known Allergies Allergy (Verified 04/29/23 13:19) Medication List - Last Reconciled 04/29/23 by Kerri Carvajal LPN albuterol sulfate 90 mcg/actuation (ProAir HFA) 2 puffs inhalation Q4-6H PRN albuterol sulfate 2.5 mg inhalation Q4-6H PRN apixaban (Eliquis) 5 mg PO BID citalopram 20 mg PO DAILY@0800 dextromethorphan polistirex ER 10 mL PO Q12H PRN diltiazem HCl 240 mg See Protocol PO DAILY famotidine 20 mg PO DAILY@0800 lxalkmxxdiz-zftwpptiu-yrwlbxsr 100-62.5-25 mcg (Trelegy Ellipta) 1 inh inhalation DAILY 30 days furosemide (Lasix) 40 mg PO BID gabapentin 300 mg PO BEDTIME 30 days ipratropium bromide 1 spray intranasal 3XD lisinopril 10 mg PO DAILY losartan 50 mg PO DAILY montelukast 10 mg PO DAILY@0800 nebulizers As directed Oxygen Home Use As directed pravastatin 40 mg PO DAILY@0800 prednisone 40mg daily x 4 days, then 30mg daily x 4 days, then 20 mg daily x 4 days, then 10 mg daily x 4 days ropinirole 0.25 mg PO DAILY@2000 turmeric root extract 500 mg PO DAILY@0800 HPI HPI Comments History of Present Illness Details The patient is a 82 -year-old woman with known COPD also chronic respiratory failure on oxygen. Apparently she was in usual state health until recently her became sick with RSV and was admitted to the [facility]. For the last couple weeks she has had worsening respiratory symptoms. She has been evaluated twice by her primary care doctor. She has been given antibiotics and prednisone. However, she continues to worsen. Today she has been using 4 L pulse on her oxygen device. She is using a mask and she was noted to be 88%. However, the patient is not activating the oxygen based on the fact that she her nasal passages are congested and she is breathing through her mouth. Therefore I switched her oxygen to continues 2 L and she maintain a pulse ox of 92%. I explained to the patient that she is to avoid using the conserving device valve at this time. The patient was provided additional antibiotics and prednisone. If she is no better in 24-48 hours. she has to go to the hospital. However, if she worsens she also she go the hospital. ? 11/28/2021 the patient is here for a pulmonary follow-up visit. Since we last spoke she was admitted to [facility] with a COPD exacerbation. She initially requiring high-flow. She fell to the high-flow really help open up her airways. She was also placed on Spiriva HandiHaler and also on Advair. She feels this combination has been very helpful. In addition to that she does continue to use her oxygen with good effect. She has been having hard time caring the oxygen tanks. She also having hard time with her [employer]. Her sister her deals with all the paperwork would like to switch over to [employer]. Therefore we perform a 6 minutes walk test with a portable oxygen concentrator. The patient did desaturate on 2 L pulse was able to maintain a pulse ox of 92% on 3 L pulse. Therefore will request that she starts 2 L pulse with activity. The patient does have a hard time caring the oxygen tanks. Therefore will also request a portable oxygen concentrator. 05/19/2022 the patient is here for pulmonary follow-up visit. Overall the patient is doing well. She is responding well to the Wixela inhaler And the Spiriva. She has not required any prednisone since we last spoke. Patient has been using the oxygen. The oxygen therapy has been affective and beneficial. We did request a portable oxygen concentrator from the [employer]. Will plan to follow-up in 6 months and undergo a chest x-ray. Also to note she did undergo pulmonary function studies. She does have very severe COPD and has a severe diffusion impairment. 08/04/2022 the patient is here for a sick visit. Apparently she has been having issues with heart. She was admitted briefly at [facility] and then here [facility] found to have AFib with rapid ventricular response. She was placed on Eliquis and ultimately had her calcium channel sary increase for rate control. The patient has been having worsening cough however. Her cough is persistent and moderate to severe. At times is productive of yellow phlegm. Having hard time sleeping because of the cough. She has tried multiple xadt-qbb-mapxwhz remedies without any significant improvement. On examination seems like she has a good amount of purulent secretions that are coming down her posterior pharynx suggesting a component of sinusitis. the patient also had chest x-rays while being in the hospital July demonstrating some degree of atelectasis and minimal pleural effusion. We talked about her medications including lisinopril that is likely not helping with her cough. Although as part of the primary cause of the cough. At this point based on the severity of the cough will be reasonable to switch her to an ARB. 09/22/2022 the patient is here for pulmonary follow-up visit. She is finally feeling better. The cough significantly better. She still has a productive cough and brings up phlegm. We did talk about performing CPT with flutter valve. She does have 1 available and she can use it twice a day. Explained to her that she is always going to bring up some phlegm. At this time the azithromycin 3 times a week seems to be helpful. Coming off the lisinopril is also helpful. The Trelegy inhaler she is using once a day with good effect. Sometimes it makes her cough. I did instruct her to she is taking little softer so she does not irritate too much to the upper airway. The AFib seems to be in good control. We did review her x-ray from July 10 with demonstrating some minimal atelectasis and scoliosis. And at this point will plan to follow-up in 4 months. If the patient has any difficulties prior to that she is to call the office for an earlier evaluation. 11/19/2022 the patient is here for a pulmonary follow-up visit. The patient is feeling better. Her Wilfred inhibitor was stopped and her cough is improved. Although she still has a little productive phlegm. It does bother her. Does not seen significant improvement with the azithromycin. Will go ahead and stop it. I did request a sputum culture will try couple weeks of doxycycline to see if we can clear any significant mucus. Recently she did have a CT scan of the chest done beginning of November 2022 in a personally reviewed it. She does have some moderate degree amount of emphysema and also scoliosis. She also has atelectasis primarily in the left hemithorax there is a segment that appears to be nearly completely obstructed. If the patient continues symptomatic consider bronchoscopy to assess that airway to make sure there was no endobronchial blockage. But at this point clinically the patient is better overall and will try to minimize any semi invasive procedures. Will reassess in a few months. 01/20/2023 the patient is here for pulmonary follow-up visit. Overall the patient is feeling better. She did complete the antibiotics and the chest physical therapy. She continues to have dyspnea on exertion. She also has some fluid overload issues. Her x-ray she had back in July she did have small pleural effusions as well. The patient will benefit from additional diuresis specially with pulmonary hypertension. Holding off on any invasive or semi-invasive diagnostic interventions at this time. She continues use the oxygen with good effect. She continues use her respiratory therapy as well. Will go ahead and prescribe Lasix that she can use for 3-5 days and will monitor closely her weight and her lower extremity edema. If the patient continues use the diuretics she will need to have blood work to monitor her electrolytes and kidney function. 04/29/2023 the patient is here for sick visit. The patient apparently was in his usual state health until sometime in the beginning of April when she started developing worsening respiratory symptoms. The patient was brought to the [facility] ER where she was evaluated. She was admitted to the hospital with COPD exacerbation. She was treated with steroids antibiotics and also respiratory treatments. The patient was able to be discharged. However, she states that upon discharge her cough got worse. She started developing worse chest congestion and also sinus congestion. Moderate severity. She is been using her oxygen more and had to increase the dose. She is been having hard time. She has been on prednisone tapering down currently on 20 mg. on exam she is very rhonchorous with a prolonged expiratory phase and wheezing. She was given a Xopenex and hypertonic saline nebulizer treatment in a sputum culture was able to be sent to the laboratory. In the meantime the patient appears to have a postviral bacterial infection in the lower respiratory now so likely the upper respiratory tract. Therefore, will start her on broad-spectrum antibiotics and will also extend her prednisone use. If the patient is no better she will come in for an x-ray and she will call the office. However, if her symptoms worsen she may need to go back to the ER. [facility] Medical History (Updated 04/29/23 @ 21:11 by Stan Brito MD) Lung nodule Pleural effusion Pulmonary hypertension Mitral annular calcification Aortic valve calcification Cough Sinusitis Chronic respiratory failure COPD (chronic obstructive pulmonary disease) Pneumonia Surgical History No pertinent past surgical history Family History Brother Myocardial infarction Father Stroke Social History (Updated 04/29/23 @ 13:23 by Kerri Carvajal LPN) Household Members: Children Household Members Other:: Daughter and family Housing: House Do you presently have visiting nurse or other home services: Yes (meals on wheels) Alcohol intake: never Patient Tobacco Use Status: Never used Tobacco Tobacco use type: Cigarette e-Cigarette/Vaping Use: Never Used Second Hand Smoke Exposure: No Advance Directives Date on File: 04/14/23 service: No Current occupational status: retired Review of Systems Const Reports difficulty sleeping, Denies fever(s) and Denies night sweats ENT Denies change in voice, Denies lip swelling, Denies mouth pain, Reports nasal congestion, Reports nasal discharge, Reports post nasal drip and Denies tongue swelling Card Denies chest pain, Reports dyspnea and Reports dyspnea on exertion Resp Reports change in phlegm color, Reports chest congestion, Reports cough, Denies hemoptysis, Reports dyspnea, Reports dyspnea on exertion and Reports wheezing GI Denies abdominal pain Musc Denies no additional complaints Neuro Denies Neuro-related abnormal movements Psych Denies no additional complaints Celestine/Lymph Denies easy bleeding and Denies lymphadenopathy Aller/Immun Denies lip swelling, Denies tongue swelling and Reports wheezing Physical Exam Vital Signs: Last Vital Signs Pulse 66 04/29/23 13:14 BP 128/70 04/29/23 13:14 Pulse Ox 93 04/29/23 13:14 Oxygen Delivery Method Nasal Cannula 04/29/23 13:14 Oxygen Flow Rate 3 04/29/23 13:14 BMI result Body Mass Index 34.9 Const General: alert Orientation/consciousness: patient oriented x3 Neck Neck: Yes normal visual inspection, Yes full ROM and Yes no lymphadenopathy Chest Chest palpation & inspection: normal inspection of the chest Resp Effort & Inspection: normal respiratory effort and prolonged expiratory phase Auscultation: rhonchi, wheezes and diminished lung sounds Cardio Rate: regular rate Rhythm: regular rhythm Heart sounds: S1 normal heart sound present and S2 normal heart sound present GI Palpation (GI): Soft to palpation and nontender Auscultation: normal bowel sounds Skin General skin exam: rashes and/or lesions noted Neuro General: patient oriented x3 Office Procedures Nebulizer Treatment Nebulizer Treatment [id number]/[id number] RX initial, or Nebulizer Subsequent Treatment Office Meds levalbuterol HCl 1.25 mg/3 mL solution for nebulization Performing Provider: Stan Brito MD Performing Location: [facility] [place], [place] Pulmonology Services Administered by: Carmen Carey LPN on 04/29/23 14:09 Dose Route Admin Location Dispensed Lot Number Expiration Date NDC Machine Maintenance Technician 1.25 mg inhalation 3 mL [id number] 02/02/24 72321-762-44 [employer] sodium chloride 3 % for nebulization Performing Provider: tSan Brito MD Performing Location: [facility] [place] [place] Pulmonology Services Administered by: Carmen Carey LPN on 04/29/23 14:09 Dose Route Admin Location Dispensed Lot Number Expiration Date NDC Machine Maintenance Technician 3 mL inhalation 3 mL [id number] 12/02/24 [id number] MYLAN Results Reviewed Results Reviewed: pwesonally reviewed CT chest, no pneumonia Assessment & Plan Assessment & Plan (1) COPD (chronic obstructive pulmonary disease): Code(s): J44.9 - Chronic obstructive pulmonary disease, unspecified Qualifiers: COPD type: COPD with acute lower respiratory infection Qualified Code(s): J44.0 - Chronic obstructive pulmonary disease with (acute) lower respiratory infection (2) Chronic respiratory failure: Code(s): J96.10 - Chronic respiratory failure, unspecified whether with hypoxia or hypercapnia Qualifiers: Respiratory failure complication: hypoxia Qualified Code(s): J96.11 - Chronic respiratory failure with hypoxia (3) Cough: Code(s): R05.9 - Cough, unspecified Qualifiers: Cough type: chronic Qualified Code(s): R05.3 - Chronic cough (4) Pulmonary hypertension: Code(s): I27.20 - Pulmonary hypertension, unspecified (5) Pleural effusion: Code(s): J90 - Pleural effusion, not elsewhere classified (6) Bronchopneumonia: Code(s): J18.0 - Bronchopneumonia, unspecified organism Plan Continue prednisone taper start Doxy/vantin x 8-10 days Add hypertonic saline for CPT Sputum cx Increase oxygen supplementation 3 L/pulse with activity with POC gabapentin at nighttime Trelegy daily short-acting beta agonist as needed Nasal saline at night CXR if no better F/U 2-3 weeks Orders: Orders AMB Nebulizer Treatment Today J44.9 - Chronic obstructive pulmonary disease, unspecified Sputum Cult + Gram stain Today J18.9 - Pneumonia, unspecified organism XR chest 2V Today J18.9 - Pneumonia, unspecified organism Medications: New doxycycline hyclate 100 mg PO BID 10 days 20 caps 0RF codeine-guaifenesin 10-100 mg/5 mL 10 mL PO Q6H 10 days PRN 300 mL 0RF cough prednisone PO daily; Take 2 tabs daily x 5 days, then 1 tab daily x 5 days 10 days 15 tabs 0RF cefpodoxime must administer with a meal/food 200 mg PO BID 10 days 20 tabs 0RF Coding Level of Care Code Est Pt Level 5 (93145) Diagnoses Chronic obstructive pulmonary disease with acute lower respiratory infection J44.0 COPD type: COPD with acute lower respiratory infection Chronic respiratory failure with hypoxia J96.11 Respiratory failure complication: hypoxia Chronic cough R05.3 Cough type: chronic Pulmonary hypertension I27.20 Pleural effusion J90 Bronchopneumonia J18.0 CPT Codes Nebulizer Treatment - Nebulizer Treatment, initial or subsequent: [id number]/[id number] RX initial, or Nebulizer Subsequent Treatment ([id number]) Time Spent (min) 30
[2023-04-29 13:14] VITALS: BP 128/70; PULSE 66; O2SAT 93; BMI 34.9
== END 2023-04-29 14:12 | disposition home or self-care (01) ==
PROVIDERS: PCP Internal Medicine; Visit Provider Hospitalist
DX: J44.9 Chronic obstructive pulmonary disease, unspecified (principal)
CPT/HCPCS: 99214

== ENCOUNTER 2023-05-13 10:00 | Outpatient (AMB) | payer MEDICARE, MEDICAID, SELFPAY ==
--- NOTE | 2023-05-13 10:25 | A.OFFVIS_ITS ---
Intake Vital Signs 05/13/23 10:32 Height 5 ft Weight 170 lb BMI 33.2 Pulse 72 Pulse Source Pulse Oximeter Pulse Oximetry (%) 85 L Oxygen Delivery Method Room Air Intake Visit Reasons: hospital f/u, persistent cough Air Defense Specialist Required: No Allergies No Known Allergies Allergy (Verified 05/13/23 10:44) HPI HPI Comments History of Present Illness Details The patient is a 82 -year-old woman with known COPD also chronic respiratory failure on oxygen. Apparently she was in usual state health until recently her became sick with RSV and was admitted to the [facility]. For the last couple weeks she has had worsening respiratory symptoms. She has been evaluated twice by her primary care doctor. She has been given antibiotics and prednisone. However, she continues to worsen. Today she has been using 4 L pulse on her oxygen device. She is using a mask and she was noted to be 88%. However, the patient is not activating the oxygen based on the fact that she her nasal passages are congested and she is breathing through her mouth. Therefore I switched her oxygen to continues 2 L and she maintain a pulse ox of 92%. I explained to the patient that she is to avoid using the conserving device valve at this time. The patient was provided additional antibiotics and prednisone. If she is no better in 24-48 hours. she has to go to the hospital. However, if she worsens she also she go the hospital. ? 11/28/2021 the patient is here for a pulm onary follow-up visit. Since we last spoke she was admitted to [facility] with a COPD exacerbation. She initially requiring high-flow. She fell to the high-flow really help open up her airways. She was also placed on Spiriva HandiHaler and also on Advair. She feels this combination has been very helpful. In addition to that she does continue to use her oxygen with good effect. She has been having hard time caring the oxygen tanks. She also having hard time with her Triptrotting. Her sister her deals with all the paperwork would like to switch over to [employer]. Therefore we perform a 6 minutes walk test with a portable oxygen concentrator. The patient did desaturate on 2 L pulse was able to maintain a pulse ox of 92% on 3 L pulse. Therefore will request that she starts 2 L pulse with activity. The patient does have a hard time caring the oxygen tanks. Therefore will also request a portable oxygen concentrator. 05/19/2022 the patient is here for pulsharlene holly follow-up visit. Overall the patient is doing well. She is responding well to the Wixela inhaler And the Spiriva. She has not required any prednisone since we last spoke. Patient has been using the oxygen. The oxygen therapy has been affective and beneficial. We did request a portable oxygen concentrator from the Triptrotting. Will plan to follow-up in 6 months and undergo a chest x-ray. Also to note she did undergo pulmonary function studies. She does have very severe COPD and has a severe diffusion impairment. 08/04/2022 the patient is here for a sick visit. Apparently she has been having issues with heart. She was admitted briefly at [facility] and then here [facility] found to have AFib with rapid ventricular response. She was placed on Eliquis and ultimately had her calcium channel sary increase for rate control. The patient has been having worsening cough however. Her cough is persistent and moderate to severe. At times is productive of yellow phlegm. Having hard time sleeping because of the cough. She has tried multiple svtz-vla-[id number] remedies without any significant improvement. On examination seems like she has a good amount of purulent secretions that are coming down her posterior pharynx suggesting a component of sinusitis. the patient also had chest x-rays while being in the hospital July demonstrating some degree of atelectasis and minimal pleural effusion. We talked about her medications including lisinopril that is likely not helping with her cough. Although as part of the primary cause of the cough. At this point based on the severity of the cough will be reasonable to switch her to an ARB. 09/22/2022 the patient is here for pulmon castillo follow-up visit. She is finally feeling better. The cough significantly better. She still has a productive cough and brings up phlegm. We did talk about performing CPT with flutter valve. She does have 1 available and she can use it twice a day. Explained to her that she is always going to bring up some phlegm. At this time the azithromycin 3 times a week seems to be helpful. Coming off the lisinopril is also helpful. The Trelegy inhaler she is using once a day with good effect. Sometimes it makes her cough. I did instruct her to she is taking little softer so she does not irritate too much to the upper airway. The AFib seems to be in good control. We did review her x-ray from July 10 with demonstrating some minimal atelectasis and scoliosis. And at this point will plan to follow-up in 4 months. If the patient has any difficulties prior to that she is to call the office for an earlier evaluation. 11/19/2022 the patient is here for a pulmonary follow-up visit. The patient is feeling better. Her Wilfred inhibitor was stopped and her cough is improved. Although she still has a little productive phlegm. It does bother her. Does not seen significant improvement with the azithromycin. Will go ahead and stop it. I did request a sputum culture will try couple weeks of doxycycline to see if we can clear any significant mucus. Recently she did have a CT scan of the chest done beginning of November 2022 in a personally reviewed it. She does have some moderate degree amount of emphysema and also scoliosis. She also has atelectasis primarily in the left hemithorax there is a segment that appears to be nearly completely obstructed. If the patient continues symptomatic consider bronchoscopy to assess that airway to make sure there was no endobronchial blockage. But at this point clinically the patient is better overall and will try to minimize any semi invasive procedures. Will reassess in a few months. 01/20/2023 the patient is here for pulmonary follow-up visit. Overall the patient is feeling better. She did complete the antibiotics and the chest physical therapy. She continues to have dyspnea on exertion. She also has some fluid overload issues. Her x-ray she had back in July she did have small pleural effusions as well. The patient will benefit from additional diuresis specially with pulmonary hypertension. Holding off on any invasive or semi- invasive diagnostic interventions at this time. She continues use the oxygen with good effect. She continues use her respiratory therapy as well. Will go ahead and prescribe Lasix that she can use for 3-5 days and will monitor closely her weight and her lower extremity edema. If the patient continues use the diuretics she will need to have blood work to monitor her electrolytes and kidney function. 04/29/2023 the patient is here for sick visit. The patient apparently was in his usual state health until sometime in the beginning of April when she started developing worsening respiratory symptoms. The patient was brought to the [facility] ER where she was evaluated. She was admitted to the hospital with COPD exacerbation. She was treated with steroids antibiotics and also respiratory treatments. The patient was able to be discharged. However, she states that upon discharge her cough got worse. She started developing worse chest congestion and also sinus congestion. Moderate severity. She is been using her oxygen more and had to increase the dose. She is been having hard time. She has been on prednisone tapering down currently on 20 mg. on exam she is very rhonchorous with a prolonged expiratory phase and wheezing. She was given a Xopenex and hypertonic saline nebulizer treatment in a sputum culture was able to be sent to the laboratory. In the meantime the patient appears to have a postviral bacterial infection in the lower respiratory now so likely the upper respiratory tract. Therefore, will start her on broad-spectrum a ntibiotics and will also extend her prednisone use. If the patient is no better she will come in for an x-ray and she will call the office. However, if her symptoms worsen she may need to go back to the ER. 05/13/2023 the patient is here for pulmon castillo follow-up visit. She is no better. She is having still significant cough. Productive in nature. Has a hard time sleeping because of the cough. Moderate severity. Feels is more over sinuses now. She does have Afrin nasal spray that she can use to 5 days. She did complete the prednisone. She also completed the Vantin. Based on the fact that she is still very congested will go ahead and start her on levofloxacin. The patient can start his low-dose prednisone as well to try to help with the inflammation. And will follow-up with her after her CT scan. The patient develops any worsening symptoms she can always call and we can consider bronchoscopy. She is also complaining of some pleuritic chest discomfort. Currently better. I did advise that if her discomfort returns or if it worsens that she should go to the ER for further evaluation. [facility] Medical History (Updated 04/29/23 @ 21:11 by Stan Brito MD) Lung nodule Pleural effusion Pulmonary hypertension Mitral annular calcification Aortic valve calcification Cough Sinusitis Chronic respiratory failure COPD (chronic obstructive pulmonary disease) Pneumonia Surgical History No pertinent past surgical history Family History Brother Myocardial infarction Father Stroke Social History (Updated 04/29/23 @ 13:23 by Kerri Carvajal LPN) Household Members: Children Household Members Other:: Daughter and family Housing: House Do you presently have visiting nurse or other home services: Yes (meals on wheels) Alcohol intake: never Patient Tobacco Use Status: Never used Tobacco Tobacco use type: Cigarette e-Cigarette/Vaping Use: Never Used Second Hand Smoke Exposure: No Advance Directives Date on File: 04/14/23 service: No Current occupational status: retired Review of Systems Const Reports difficulty sleeping, Denies fever(s) and Denies night sweats ENT Denies change in voice, Denies lip swelling, Denies mouth pain, Reports nasal congestion, Reports nasal discharge, Reports post nasal drip, Reports sinus pressure and Denies tongue swelling Card Denies chest pain, Reports dyspnea and Reports dyspnea on exertion Resp Reports change in phlegm color, Reports chest congestion, Reports cough, Denies hemoptysis, Reports dyspnea, Reports dyspnea on exertion and Denies wheezing GI Denies abdominal pain Musc Denies no additional complaints Neuro Denies Neuro-related abnormal movements Psych Denies no additional complaints Celestine/Lymph Denies easy bleeding and Denies lymphadenopathy Aller/Immun Denies lip swelling, Denies tongue swelling and Denies wheezing Physical Exam Vital Signs: Last Vital Signs Pulse 72 05/13/23 10:32 Pulse Ox 85 L 05/13/23 10:32 Oxygen Delivery Method Room Air 05/13/23 10:32 BMI result Body Mass Index 33.2 Const General: alert Orientation/consciousness: patient oriented x3 Neck Neck: Yes normal visual inspection, Yes full ROM and Yes no lymphadenopathy Chest Chest palpation & inspection: normal inspection of the chest Resp Effort & Inspection: normal respiratory effort Auscultation: no rhonchi, no wheezes and diminished lung sounds Cardio Rate: regular rate Rhythm: regular rhythm Heart sounds: S1 normal heart sound present and S2 normal heart sound present GI Palpation (GI): Soft to palpation and nontender Auscultation: normal bowel sounds Skin General skin exam: rashes and/or lesions noted Neuro General: patient oriented x3 Assessment & Plan Assessment & Plan (1) COPD (chronic obstructive pulmonary disease): Code(s): J44.9 - Chronic obstructive pulmonary disease, unspecified Qualifiers: COPD type: COPD with acute lower respiratory infection Qualified Code(s): J44.0 - Chronic obstructive pulmonary disease with (acute) lower respiratory infection (2) Chronic respiratory failure: Code(s): J96.10 - Chronic respiratory failure, unspecified whether with hypoxia or hypercapnia Qualifiers: Respiratory failure complication: hypoxia Qualified Code(s): J96.11 - Chronic respiratory failure with hypoxia (3) Cough: Code(s): R05.9 - Cough, unspecified Qualifiers: Cough type: chronic Qualified Code(s): R05.3 - Chronic cough (4) Pulmonary hypertension: Code(s): I27.20 - Pulmonary hypertension, unspecified (5) Pleural effusion: Code(s): J90 - Pleural effusion, not elsewhere classified (6) Bronchopneumonia: Code(s): J18.0 - Bronchopneumonia, unspecified organism (7) Lung nodule: Code(s): R91.1 - Solitary pulmonary nodule Plan restart low dose prednisone taper start Levaquin x 10 days hypertonic saline for CPT afrin x 5 days continue oxygen supplementation 3 L/pulse with activity with POC gabapentin at nighttime Trelegy daily short-acting beta agonist as needed Nasal saline at night CT chest in 6 weeks F/U 2 months Medications: New levofloxacin 500 mg PO DAILY 14 days 14 tabs 0RF codeine-guaifenesin 10-100 mg/5 mL 10 mL PO Q6H 10 days PRN 300 mL 0RF cough prednisone 10 mg PO DAILY 10 days 10 tabs 0RF Coding Level of Care Code Est Pt Level 4 (72679) Diagnoses Chronic obstructive pulmonary disease with acute lower respiratory infection J44.0 COPD type: COPD with acute lower respiratory infection Chronic respiratory failure with hypoxia J96.11 Respiratory failure complication: hypoxia Chronic cough R05.3 Cough type: chronic Pulmonary hypertension I27.20 Pleural effusion J90 Bronchopneumonia J18.0 Lung nodule R91.1 Time Spent (min) 17
[2023-05-13 10:32] VITALS: PULSE 72; O2SAT 85; BMI 33.2
== END 2023-05-13 10:39 | disposition home or self-care (01) ==
PROVIDERS: PCP Internal Medicine; Visit Provider Hospitalist
DX: J44.0 Chronic obstructive pulmonary disease with (acute) lower respiratory infection (principal); J96.11 Chronic respiratory failure with hypoxia; R05.3 Chronic cough; I27.20 Pulmonary hypertension, unspecified; J90 Pleural effusion, not elsewhere classified; J18.0 Bronchopneumonia, unspecified organism; R91.1 Solitary pulmonary nodule
CPT/HCPCS: 99214

== ENCOUNTER → 2023-05-13 10:00 | Outpatient (BNVA) | payer MEDICARE, MEDICAID, SELFPAY | PROVIDERS: PCP Internal Medicine; Visit Provider Hospitalist | DX: J44.0 Chronic obstructive pulmonary disease with (acute) lower respiratory infection (principal); J96.11 Chronic respiratory failure with hypoxia; J90 Pleural effusion, not elsewhere classified; J18.0 Bronchopneumonia, unspecified organism; R05.3 Chronic cough; R91.1 Solitary pulmonary nodule; I27.20 Pulmonary hypertension, unspecified | CPT/HCPCS: 99212 ==

== ENCOUNTER 2023-06-15 14:05 | Outpatient (AMB) | payer MEDICARE, MEDICAID, SELFPAY ==
[2023-06-15 14:15] VITALS: BP 114/64; PULSE 61; BMI 35.0
--- NOTE | 2023-06-15 14:15 | MHC.OFFVIS ---
Intake Vital Signs 06/15/23 14:15 Height 5 ft Weight 179 lb 0.246 oz BMI 35.0 BP 114/64 Blood Pressure Location Lt brachial Position Sitting Pulse 61 Pulse Source Pulse Oximeter Intake Visit Reasons: 3 month follow up Bridge Carpenter Required: No Speech Language Pathologist Assistant: Speech Language Pathologist Assistant Present Accompanied by: Daughter Allergies No Known Allergies Allergy (Verified 06/15/23 14:18) Medication List - Last Reconciled 06/15/23 by WILLIAM Gant albuterol sulfate 90 mcg/actuation (ProAir HFA) 2 puffs inhalation Q4-6H PRN albuterol sulfate 2.5 mg inhalation Q4-6H PRN apixaban (Eliquis) 5 mg PO BID citalopram 20 mg PO DAILY@0800 codeine-guaifenesin 10-100 mg/5 mL 10 mL PO Q6H PRN 10 days dextromethorphan polistirex ER 10 mL PO Q12H PRN diltiazem HCl 240 mg See Protocol PO DAILY famotidine 20 mg PO DAILY@0800 gjfneffxnuu-ocvbvfdmd-jkqupfxe 100-62.5-25 mcg (Trelegy Ellipta) 1 inh inhalation DAILY 30 days furosemide (Lasix) 40 mg PO BID gabapentin 300 mg PO BEDTIME 30 days ipratropium bromide 1 spray intranasal 3XD levofloxacin 500 mg PO DAILY 14 days lisinopril 10 mg PO DAILY losartan 50 mg PO DAILY montelukast 10 mg PO DAILY nebulizers As directed Oxygen Home Use As directed pravastatin 40 mg PO DAILY@0800 prednisone 10 mg PO DAILY 10 days ropinirole 0.25 mg PO DAILY@2000 turmeric root extract 500 mg PO DAILY@0800 HPI 3 month follow up HPI Details Lavern is an 82-year-old female with past medical history of hypertension, pulmonary hypertension, COPD, O2 use at home, paroxysmal AFib who presents for follow-up after recent echocardiogram. Today she reports that she had a hospital admission in April for pneumonia. She continues to have an intermittent cough with congestion. She is following with pulmonology and tells me that a CT scan will be done soon. Her breathing is close to baseline. She has chronic shortness of breath with activity. She is not wearing oxygen at this visit however she has it with her and uses it with ambulation. No chest discomfort at rest or with activity. She has some discomfort in her back when she coughs. She will notice heart palpitation with coughing. No presyncope, syncope, falls. No orthopnea, edema. Taking meds as directed. Daughter is present. [facility] Medical History Lung nodule Pleural effusion Pulmonary hypertension Mitral annular calcification Aortic valve calcification Cough Sinusitis Chronic respiratory failure COPD (chronic obstructive pulmonary disease) Pneumonia Surgical History No pertinent past surgical history Family History Brother Myocardial infarction Father Stroke Social History Household Members: Children Household Members Other:: Daughter and family Housing: House Do you presently have visiting nurse or other home services: Yes (meals on wheels) Alcohol intake: never Patient Tobacco Use Status: Never used Tobacco Tobacco use type: Cigarette e-Cigarette/Vaping Use: Never Used Second Hand Smoke Exposure: No Advance Directives Date on File: 04/14/23 service: No Current occupational status: retired Review of Systems Const All systems reviewed & are unremarkable except as noted in HPI and below ENT Denies dizziness Card Details: brief palpitations when coughing Denies chest pain, Denies chest pain at rest, Denies chest pain with activity, Denies rapid heart rate, Denies pedal edema, Denies edema, Denies leg edema, Denies lightheadedness, Denies palpitations, Reports dyspnea, Denies dyspnea on exertion and Denies orthopnea Resp Reports cough, Reports dyspnea and Denies dyspnea on exertion GI Denies hematochezia and Denies change in stool character Musc Denies abnormal gait, Denies limited range of motion, Denies muscle cramps, Denies muscle weakness, Denies numbness, Denies radiating pain into limb, Denies stiffness and Denies tingling Neuro Denies abnormal gait, Denies dizziness, Denies numbness and Denies tingling Endo Denies palpitations Physical Exam Vital Signs: Last Vital Signs Pulse 61 06/15/23 14:15 BP 114/64 06/15/23 14:15 BMI result Body Mass Index 35.0 Const General: cooperative, healthy appearing, comfortable and no acute distress Orientation/consciousness: patient oriented x3 Neck Neck: Yes normal visual inspection Resp Effort & Inspection: normal respiratory effort Auscultation: rales (each base), no rhonchi and no wheezes Cardio Jugular venous distension: no JVD Rate: regular rate Rhythm: regular rhythm Heart sounds: S1 normal heart sound present, S2 normal heart sound present, no murmurs and no rubs Neuro General: patient oriented x3 Extrem General: Yes normal to inspection Psych Appearance: grossly normal Mental Status: mental status grossly normal Speech and movement: Normal speech and movement present Assessment & Plan Assessment & Plan (1) PAF (paroxysmal atrial fibrillation): Code(s): I48.0 - Paroxysmal atrial fibrillation Plan: History of paroxysmal atrial fibrillation. On diltiazem for heart rate control. She will notice brief heart palpitations during coughing. Last Holter monitor done 07/28/2022 for nearly 3 days showed sinus rhythm with average heart rate 72, frequent PACs, 2.3% of time, 6 SVT episodes, longest 12 beats, no AFib. Pulse is regular on examination today, heart rate 61. Continue diltiazem with out change. She is on Eliquis for anticoagulation. No bleeding issues reported. Stroke risk with atrial fibrillation reviewed with her. Labs done on 04/15/2023 shows creatinine 0.77, hematocrit 34.1. Cardiology follow-up in 6 months, sooner if needed. (2) Bronchopneumonia: Code(s): J18.0 - Bronchopneumonia, unspecified organism Plan: Recent hospital admission for pneumonia. Continues to have an intermittent cough, productive at times. Overall she notices slight improvement recently. She is wearing oxygen with ambulation and as needed. She follows with pulmonology and has a CT scan planned for the near future as well as office visit follow-up. (3) Pulmonary hypertension: Code(s): I27.20 - Pulmonary hypertension, unspecified Plan: Echocardiogram done 04/01/2023 showing EF 65-70%, mildly dilated left atrium, moderate mitral calcification, fibrocalcific aortic valve, moderate pulmonary hypertension. Breathing is stable at present. Follows with pulmonology (4) COPD (chronic obstructive pulmonary disease): Code(s): J44.9 - Chronic obstructive pulmonary disease, unspecified Qualifiers: COPD type: COPD with acute lower respiratory infection Qualified Code(s): J44.0 - Chronic obstructive pulmonary disease with (acute) lower respiratory infection Plan: As above Plan Time spent with chart review, documentation, interview and assessment Coding Level of Care Code Est Pt Level 4 (90797) Diagnoses PAF (paroxysmal atrial fibrillation) I48.0 Bronchopneumonia J18.0 Pulmonary hypertension I27.20 Chronic obstructive pulmonary disease with acute lower respiratory infection J44.0 COPD type: COPD with acute lower respiratory infection Time Spent (min) 28
== END 2023-06-15 14:48 | disposition home or self-care (01) ==
PROVIDERS: PCP Internal Medicine; Visit Provider Nurse Practitioner Family
DX: I48.0 Paroxysmal atrial fibrillation (principal); J18.0 Bronchopneumonia, unspecified organism; I27.20 Pulmonary hypertension, unspecified; J44.0 Chronic obstructive pulmonary disease with (acute) lower respiratory infection
CPT/HCPCS: 99214

== ENCOUNTER → 2023-06-15 14:05 | Outpatient (BNVA) | payer MEDICARE, MEDICAID, SELFPAY | PROVIDERS: PCP Internal Medicine; Visit Provider Nurse Practitioner Family | DX: I48.0 Paroxysmal atrial fibrillation (principal); J18.0 Bronchopneumonia, unspecified organism; J44.0 Chronic obstructive pulmonary disease with (acute) lower respiratory infection; I27.20 Pulmonary hypertension, unspecified | CPT/HCPCS: 99212 ==

== ENCOUNTER 2023-06-21 09:29 | Emergency (ER) | payer MEDICARE, OTHER, SELFPAY ==
--- NOTE | ~2023-06-21 | XR_ITS ---
EXAMINATION: XR CHEST CLINICAL INFORMATION: Cough and shortness of breath. COMPARISON: 04/13/2023 TECHNIQUE: 2 views of the chest were obtained. FINDINGS: The lungs are well expanded. No focal consolidation. No pleural effusion. Cardiac silhouette is unchanged. Postsurgical changes in the upper abdomen. XR/XR chest 2V IMPRESSION: No acute abnormality.
[2023-06-21 09:40] VITALS: BP 121/40; PULSE 76; RESP 20; TEMP 36.6; O2SAT 98; BMI 31.6
[2023-06-21 09:56] LABS: MANUAL DIFF FLAG NO
[2023-06-21 09:58] LABS: Basophils Absolute Auto 0.1 X10*3/uL (0.0-0.2); Basophils Percent Auto 0.9 % (0-2); Eosinophils Absolute Auto 0.1 X10*3/uL (0.0-0.4); Eosinophils Percent Auto 0.6 % (0-4); Hematocrit 28.7 % (37.0-47.0); Hemoglobin 8.5 g/dl (12.0-16.0); Imm Gran Abs Auto 0.04 X10*3/uL (0.00-0.03); Imm Gran Pct Auto 0.4 % (0.0-0.4); Lymphocytes Absolute Auto 0.9 X10*3/uL (1.2-4.9); Lymphocytes Percent Auto 8.5 % (20-40); Mean Corpuscular HGB Conc 29.6 g/dl (31.0-35.0); Mean Corpuscular Hemoglobin 26.6 pg (27.0-33.0); Mean Platelet Volume 9.5 fL (9.4-12.3); Monocytes Absolute Auto 0.7 X10*3/uL (0.1-1.2); Monocytes Percent Auto 7.1 % (2-11); Neutrophils Absolute Auto 8.6 x10*3/uL (2.0-8.3); Neutrophils Percent Auto 82.5 % (45-73); Platelet Count 411 X10*3/uL (160-400); Red Blood Count 3.19 X10*6/uL (4.20-5.50); Red Cell Distribution Width 15.4 % (11.0-16.0); White Blood Count 10.5 X10*3/uL (4.8-10.8)
[2023-06-21 10:25] LABS: Anion Gap 12 (12-20); Blood Urea Nitrogen 13 mg/dL (9-16); Carbon Dioxide 33 mmol/L (22-29); Chloride 100 mmol/L (96-108); Creatinine Clr Calc Pharmacy 58.7; Estimated Glomerular Filt Rate > 60; Glucose Random 140 mg/dL (60-115); Potassium 3.3 mmol/L (3.3-5.1); Sodium 142 mmol/L (135-145)
--- NOTE | 2023-06-21 11:21 | ED_ITS ---
HPI - General Adult General Chief complaint: Weakness Stated complaint: sob Time Seen by Provider: 06/21/23 11:10 History of Present Illness HPI narrative: The patient is an 82-year-old woman who lives with her daughter. The patient has a number of chronic medical problems including COPD and congestive heart failure. She is on apixaban. She has home oxygen that she uses intermittently. The patient has felt worse than usual over the last 2 days. She has had increasing cough and shortness of breath. She has been wearing her oxygen continuously for the last 48 hours which is unusual for her. She is not certain if she has had a fever. She is coughing a great deal but is not having significant sputum production. She has some swelling of her legs but the swelling is not remarkably worse. She has also been having problems with pain in the left jaw for a few weeks. She saw her dentist who prescribed a course of antibiotics which she finished yesterday. The daughter thinks this was probably penicillin but she is not certain. The jaw pain on the left side continues. She says the jaw pain is intermittent and she also feels that it goes into her left ear. No definite fever. Related Data Home Medications Medication Instructions Recorded Confirmed albuterol sulfate 2.5 mg/3 mL 2.5 mg inhalation Q4-6H PRN 03/07/21 06/15/23 (0.083 %) solution for nebulization Wheezing famotidine 20 mg tablet 20 mg PO DAILY@79903/07/21 06/15/23 pravastatin 40 mg tablet 40 mg PO DAILY@79903/07/21 06/15/23 ropinirole 0.25 mg tablet 0.25 mg PO DAILY@199903/07/21 06/15/23 citalopram 10 mg tablet 20 mg PO DAILY@79909/19/21 06/15/23 turmeric root extract 500 mg 500 mg PO DAILY@79909/19/21 06/15/23 capsule Oxygen Home Use 09/22/22 06/15/23 nebulizers 09/22/22 06/15/23 furosemide 20 mg tablet (Lasix) 40 mg PO BID 01/19/23 06/15/23 ipratropium bromide 42 mcg (0.06 1 spray intranasal 3XD 01/19/23 06/15/23 %) nasal spray lisinopril 10 mg tablet 10 mg PO DAILY 03/10/23 06/15/23 losartan 50 mg tablet 50 mg PO DAILY 03/10/23 06/15/23 Previous Rx's Medication Instructions Recorded albuterol sulfate 90 mcg/actuation 2 puff inhalation Q4-6H PRN 02/17/21 aerosol inhaler (ProAir HFA) shortness of breath or wheezing #8.5 grams apixaban 5 mg tablet (Eliquis) 5 mg PO BID #60 tabs 07/11/22 diltiazem HCl 240 mg 240 mg PO DAILY #30 caps 08/13/22 capsule,extended release 24 hr fluticasone fur. 100 mcg-umeclid 1 inh inhalation DAILY 30 days #60 09/10/22 62.5 mcg-vilant 25 mcg ea inhalat.powder (Trelegy Ellipta) gabapentin 300 mg capsule 300 mg PO BEDTIME 30 days #30 caps 03/24/23 dextromethorphan polistirex 30 10 ml PO Q12H PRN cough #89 mL 04/19/23 mg/5 mL oral susp ext.release 12hr codeine 10 mg-guaifenesin 100 mg/5 10 ml PO Q6H PRN cough 10 days 05/13/23 mL oral liquid #300 mL levofloxacin 500 mg tablet 500 mg PO DAILY 14 days #14 tabs 05/13/23 prednisone 10 mg tablet 10 mg PO DAILY 10 days #10 tabs 05/13/23 montelukast 10 mg tablet 10 mg PO DAILY #30 tabs 06/07/23 doxycycline monohydrate 100 mg 100 mg PO BID #14 caps 06/21/23 capsule prednisone 20 mg tablet 40 mg (2 x 20 mg) PO DAILY 4 days 06/21/23 #8 tabs Allergies Allergy/AdvReac Type Severity Reaction Status Date / Time No Known Allergies Allergy Verified 06/15/23 14:18 Review of Systems 2 Review of Systems: Yes all other systems are reviewed and are negative [facility] Past Medical History Medical History Lung nodule Pleural effusion Pulmonary hypertension Mitral annular calcification Aortic valve calcification Cough Sinusitis Chronic respiratory failure COPD (chronic obstructive pulmonary disease) Pneumonia Surgical History No pertinent past surgical history Family History Family History Brother Myocardial infarction Father Stroke Social History Social History Household Members: Children Household Members Other:: Daughter and family Housing: House Do you presently have visiting nurse or other home services: Yes (meals on wheels) Alcohol intake: never Patient Tobacco Use Status: Never used Tobacco Tobacco use type: Cigarette Smoked in Last 30 Days: No e-Cigarette/Vaping Use: Never Used Second Hand Smoke Exposure: No Use of substances other than those prescribed or required for medical reasons: No Advance Directives: Yes Advance Directives on File: Yes Advance Directives Date on File: 06/21/23 service: No Current occupational status: retired Physical Exam ED Vital Signs: Vital Signs - 24 hr 06/21/23 09:40 06/21/23 12:02 06/21/23 12:21 Temperature 97.8 F 98.3 F Pulse Rate 76 78 79 Respiratory Rate 20 18 24 H Blood Pressure 121/40 L 110/44 L Pulse Oximetry 98 100 Oxygen Delivery Method Room Air Nasal Cannula Oxygen Flow Rate 4 BMI result Body Mass Index 31.6 Const Other: The patient is a chronically ill-appearing 82-year-old. She looks quite chronically unwell but not obviously acutely ill. She is on nasal oxygen. No gross increased work of breathing. HENMT Other: Tympanic membranes are normal bilaterally. She has left TMJ tenderness. No obvious acute intraoral abnormality. Teeth are not markedly tender. Eyes Other: Pupils are round equal, conjunctivae are clear Neck Other: No obvious JVD but the next fairly thick. No significant cervical adenopathy. Resp Other: Mild wheezes bilaterally. Cardio Other: The patient has regular rate and rhythm with no murmur GI Other: Abdomen is soft nontender. Skin Other: Skin is dry and unremarkable. Neuro Other: The patient is awake and alert. Speech is clear. Face is symmetrical. She moves her extremities symmetrically. She seems grossly neurologically intact. Extrem Other: Trace pitting edema bilaterally. No calf swelling or asymmetry or tenderness. Medications Administered Discontinued Medications Generic Name Dose Route Start Last Admin Trade Name Freq PRN Reason Stop Dose Admin Albuterol Sulfate 5 mg/ 0 mg 06/21/23 12:13 06/21/23 12:20 Albuterol/Ipratropium 3 ml INHALE 06/21/23 12:14 5 each ONCE ONE Administration Doxycycline Monohydrate 100 mg 06/21/23 13:31 06/21/23 13:54 Doxycycline Monohydrate 100 Mg Capsule PO 06/21/23 13:32 100 mg ONCE ONE Administration Furosemide 40 mg 06/21/23 13:31 06/21/23 13:54 Furosemide 40 Mg/4 Ml Vial IVPUSH 06/21/23 13:32 40 mg ONCE ONE Administration Protocol Prednisone 60 mg 06/21/23 13:31 06/21/23 13:55 Prednisone 20 Mg Tablet PO 06/21/23 13:32 60 mg ONCE ONE Administration Medical Decision Making Medical Decision Making [facility] Narrative: Patient has been feeling unwell for 48 hours with worsening shortness of breath and increased use of her oxygen. She may have some mild wheezes on exam. No definite crackles. Her chest x-ray is negative. I do not think EKG shows any significant changes from previous. Labs show white blood count of 10.5. She has a mild left shift on her differential. However her CRP is only slightly abnormal at 2.4. The patient's BNP is 269. This is higher than previous BNPs. The patient's viral swab is negative. My overall impression is that the patient may be having a combination of some COPD exacerbation and some degree of mild fluid overload. She is also complaining of left jaw pain that I think might be TMJ syndrome. Her troponin is negative. The patient's hemoglobin is less than previous hemoglobins at 8.5. She is on apixaban but she denies any black or bloody stools. Her BUN is not elevated. Overall the patient's vital signs seems stable. She was treated with bronchodilator updrafts and 40 mg of IV furosemide. She seemed to feel better. She looked better. I did not feel there was a clear indication for hospitalization. She will be discharged on a course of prednisone and doxycycline. She should follow up with regular doctor. She should return if worse. Lab Data 06/21/23 09:52 06/21/23 09:52 Labs: Lab Results 06/21/23 Range/Units 09:52 WBC 10.5 (4.8-10.8) X10*3/uL RBC 3.19 L (4.20-5.50) X10*6/uL Hgb 8.5 L (12.0-16.0) g/dl Hct 28.7 L (37.0-47.0) % MCV 90.0 (80.0-98.0) fL MCH 26.6 L (27.0-33.0) pg MCHC 29.6 L (31.0-35.0) g/dl RDW 15.4 (11.0-16.0) % Plt Count 411 H (160-400) X10*3/uL MPV 9.5 (9.4-12.3) fL Immature Gran % (Auto) 0.4 (0.0-0.4) % Neut % (Auto) 82.5 H (45-73) % Lymph % (Auto) 8.5 L (20-40) % [place] % (Auto) 7.1 (2-11) % Eos % (Auto) 0.6 (0-4) % Baso % (Auto) 0.9 (0-2) % Lymph # (Auto) 0.9 L (1.2-4.9) X10*3/uL [place] # (Auto) 0.7 (0.1-1.2) X10*3/uL Eos # (Auto) 0.1 (0.0-0.4) X10*3/uL Baso # (Auto) 0.1 (0.0-0.2) X10*3/uL Abs Immat Gran (auto) 0.04 H (0.00-0.03) X10*3/uL Absolute Neuts (auto) 8.6 H (2.0-8.3) x10*3/uL Absolute Nucleated RBC 0.000 (0.0-0.012) X10*3/uL Nucleated RBC % (auto) 0.0 (0.0-0.2) /100WBC Sodium 142 (135-145) mmol/L Potassium 3.3 (3.3-5.1) mmol/L Chloride 100 (96-108) mmol/L Carbon Dioxide 33 H (22-29) mmol/L Anion Gap 12 (12-20) BUN 13 (9-16) mg/dL Creatinine 0.74 (0.5-1.4) mg/dL Estim Creat Clear Calc 58.7 Estimated GFR > 60 Random Glucose 140 H (60-115) mg/dL Calcium 9.0 (8.4-10.2) mg/dL Troponin I High Sens 13.0 D (<3.5-17.0) ng/L C-Reactive Protein 2.41 H (< or = 0.50) mg/dL B-Natriuretic Peptide 269 H (<100) pg/mL Influenza Type A (PCR) NEGATIVE (Negative) Influenza Type B (PCR) NEGATIVE (Negative) RSV RNA Qual (PCR) NEGATIVE (Negative) SARS-CoV-2 RNA (RT-PCR) NEGATIVE (Negative) Independent Interpretation I performed an independent interpretation of an: EKG Interpretation: EKG at 11:47 shows sinus rhythm at 79 beats per minute. No definite acute ischemic changes compared to previous. Discharge Plan Discharge Clinical Impression: Shortness of breath, COPD with acute exacerbation, Congestive heart failure Patient Disposition: Home, Self-Care Additional Instructions: You have been started on antibiotic doxycycline. Please take this 2 times a day for 1 week. You have also been started on a brief course of prednisone. Take this once a day as prescribed until done. Please contact your regular doctor for a follow-up appointment in the next week or 2 to see how you are doing. Return to the emergency was significantly worse. Prescriptions: New prednisone 20 mg tablet 40 mg PO DAILY 4 Days Qty: 8 0RF doxycycline monohydrate 100 mg capsule 100 mg PO BID Qty: 14 0RF No Action Trelegy Ellipta 100-62.5-25 mcg blister with device 1 inh inhalation DAILY 30 Days Qty: 60 11RF gabapentin 300 mg capsule 300 mg PO BEDTIME 30 Days Qty: 30 6RF montelukast 10 mg tablet 10 mg PO DAILY Qty: 30 11RF albuterol sulfate [ProAir HFA] 90 mcg/actuation HFA aerosol inhaler 2 puff inhalation Q4-6H PRN (Reason: shortness of breath or wheezing) Qty: 8.5 0RF Eliquis 5 mg Tablet 5 mg PO BID Qty: 60 0RF dextromethorphan polistirex 30 mg/5 mL suspension,extended rel 12 hr 10 ml PO Q12H PRN (Reason: cough) Qty: 89 0RF albuterol sulfate 2.5 mg /3 mL (0.083 %) solution for nebulization 2.5 mg inhalation Q4-6H PRN (Reason: Wheezing) famotidine 20 mg tablet 20 mg PO DAILY@0800 pravastatin 40 mg tablet 40 mg PO DAILY@0800 ropinirole 0.25 mg tablet 0.25 mg PO DAILY@2000 citalopram 10 mg tablet 20 mg PO DAILY@0800 diltiazem HCl 240 mg capsule,extended release 24hr 240 mg PO DAILY Qty: 30 0RF Protocol: Hold for SBP/HR < HOLD for SBP < : 90 HOLD for HR < : 60 furosemide [Lasix] 20 mg tablet 40 mg PO BID (DME) nebulizers Misc See Rx Instructions .Route Rx Instructions: As directed (DME) Oxygen Home Use Kit See Rx Instructions .Route Rx Instructions: As directed ipratropium bromide 42 mcg (0.06 %) spray,non-aerosol 1 spray intranasal 3XD losartan 50 mg tablet 50 mg PO DAILY turmeric root extract 500 mg capsule 500 mg PO DAILY@0800 levofloxacin 500 mg tablet 500 mg PO DAILY 14 Days Qty: 14 0RF codeine-guaifenesin 10-100 mg/5 mL liquid 10 ml PO Q6H PRN (Reason: cough) 10 Days Qty: 300 0RF prednisone 10 mg tablet 10 mg PO DAILY 10 Days Qty: 10 0RF lisinopril 10 mg tablet 10 mg PO DAILY Referrals: Lizandro Gibbs MD [Primary Care Provider] - (Shortness of breath) Interventions: ED Discharge Assessment Last Done: 06/21/23 15:46 Discharge Date/Time: 06/21/23 15:59
--- NOTE | 2023-06-21 11:26 | ECG_ITS ---
Test Reason : DYSPNEA Blood Pressure : / mmHG Vent. Rate : 079 BPM Atrial Rate : 079 BPM P-R Int : 228 ms QRS Dur : 082 ms QT Int : 388 ms P-R-T Axes : 058 068 050 degrees QTc Int : 444 ms Normal sinus rhythm Nonspecific ST abnormality When compared with ECG of 13-APR-2023 13:06, No significant changes seen Referred By: [place] Electronically Signed By:ALEXA VILLA MD
[2023-06-21 11:59] LABS: B Type Natriuretic Peptide 269 pg/mL (<100)
[2023-06-21 12:02] VITALS: BP 110/44; PULSE 78; RESP 18; TEMP 36.8; O2SAT 100
[2023-06-21 12:07] LABS: Influenza A PCR NEGATIVE (Negative); Influenza B PCR NEGATIVE (Negative); Resp Syncy Virus RNA Qual PCR NEGATIVE (Negative); SARS COV2 PCR INHOUSE NEGATIVE (Negative)
[2023-06-21] MEDS: Albuterol Sulfate 5 MG, Albuterol/Iprat 2.5/0.5MG 3 ML 3 ML INHALE (12:20)
[2023-06-21 12:21] VITALS: PULSE 79; RESP 24; O2SAT 100
[2023-06-21] MEDS: Furosemide 40 MG/4 ML VIAL IVPUSH (13:54)
[2023-06-21] MEDS: Doxycycline Monohydrate 100 MG CAPSULE PO (13:54)
[2023-06-21] MEDS: predniSONE 20 MG TABLET 60 MG PO (13:55)
[2023-06-21 14:49] LABS: C Reactive Protein 2.41 mg/dL (< or = 0.50)
--- NOTE | 2023-06-21 15:12 | ED_ITS ---
HPI - General Adult General Chief complaint: Weakness Stated complaint: sob Time Seen by Provider: 06/21/23 11:10 History of Present Illness HPI narrative: The patient is a very pleasant 82-year-old woman who has been feeling worse than usual over the last 48 hours with increased shortness of breath. She has oxygen at home that she normally only uses intermittently. She has been using it continuously over the last 48 hours. She has had a productive cough she says some shortness of breath and feels generally weak. No definite fevers. She has also had problems with pain in her left jaw. Related Data Home Medications Medication Instructions Recorded Confirmed albuterol sulfate 2.5 mg/3 mL 2.5 mg inhalation Q4-6H PRN 03/07/21 06/15/23 (0.083 %) solution for nebulization Wheezing famotidine 20 mg tablet 20 mg PO DAILY@0803/07/21 06/15/23 pravastatin 40 mg tablet 40 mg PO DAILY@79903/07/21 06/15/23 ropinirole 0.25 mg tablet 0.25 mg PO DAILY@199903/07/21 06/15/23 citalopram 10 mg tablet 20 mg PO DAILY@79909/19/21 06/15/23 turmeric root extract 500 mg 500 mg PO DAILY@79909/19/21 06/15/23 capsule Oxygen Home Use 09/22/22 06/15/23 nebulizers 09/22/22 06/15/23 furosemide 20 mg tablet (Lasix) 40 mg PO BID 01/19/23 06/15/23 ipratropium bromide 42 mcg (0.06 1 spray intranasal 3XD 01/19/23 06/15/23 %) nasal spray lisinopril 10 mg tablet 10 mg PO DAILY 03/10/23 06/15/23 losartan 50 mg tablet 50 mg PO DAILY 03/10/23 06/15/23 Previous Rx's Medication Instructions Recorded albuterol sulfate 90 mcg/actuation 2 puff inhalation Q4-6H PRN 02/17/21 aerosol inhaler (ProAir HFA) shortness of breath or wheezing #8.5 grams apixaban 5 mg tablet (Eliquis) 5 mg PO BID #60 tabs 07/11/22 diltiazem HCl 240 mg 240 mg PO DAILY #30 caps 08/13/22 capsule,extended release 24 hr fluticasone fur. 100 mcg-umeclid 1 inh inhalation DAILY 30 days #60 09/10/22 62.5 mcg-vilant 25 mcg ea inhalat.powder (Trelegy Ellipta) gabapentin 300 mg capsule 300 mg PO BEDTIME 30 days #30 caps 03/24/23 dextromethorphan polistirex 30 10 ml PO Q12H PRN cough #89 mL 04/19/23 mg/5 mL oral susp ext.release 12hr codeine 10 mg-guaifenesin 100 mg/5 10 ml PO Q6H PRN cough 10 days 05/13/23 mL oral liquid #300 mL levofloxacin 500 mg tablet 500 mg PO DAILY 14 days #14 tabs 05/13/23 prednisone 10 mg tablet 10 mg PO DAILY 10 days #10 tabs 05/13/23 montelukast 10 mg tablet 10 mg PO DAILY #30 tabs 06/07/23 doxycycline monohydrate 100 mg 100 mg PO BID #14 caps 06/21/23 capsule prednisone 20 mg tablet 40 mg (2 x 20 mg) PO DAILY 4 days 06/21/23 #8 tabs Allergies Allergy/AdvReac Type Severity Reaction Status Date / Time No Known Allergies Allergy Verified 06/15/23 14:18 [facility] Past Medical History Medical History Lung nodule Pleural effusion Pulmonary hypertension Mitral annular calcification Aortic valve calcification Cough Sinusitis Chronic respiratory failure COPD (chronic obstructive pulmonary disease) Pneumonia Surgical History No pertinent past surgical history Family History Family History Brother Myocardial infarction Father Stroke Social History Social History Household Members: Children Household Members Other:: Daughter and family Housing: House Do you presently have visiting nurse or other home services: Yes (meals on wheels) Alcohol intake: never Patient Tobacco Use Status: Never used Tobacco Tobacco use type: Cigarette Smoked in Last 30 Days: No e-Cigarette/Vaping Use: Never Used Second Hand Smoke Exposure: No Use of substances other than those prescribed or required for medical reasons: No Advance Directives: Yes Advance Directives on File: Yes Advance Directives Date on File: 06/21/23 service: No Current occupational status: retired Physical Exam ED Vital Signs: Vital Signs - 24 hr 06/21/23 09:40 06/21/23 12:02 06/21/23 12:21 Temperature 97.8 F 98.3 F Pulse Rate 76 78 79 Respiratory Rate 20 18 24 H Blood Pressure 121/40 L 110/44 L Pulse Oximetry 98 100 Oxygen Delivery Method Room Air Nasal Cannula Oxygen Flow Rate 4 BMI result Body Mass Index 31.6 Medications Administered Discontinued Medications Generic Name Dose Route Start Last Admin Trade Name Freq PRN Reason Stop Dose Admin Albuterol Sulfate 5 mg/ 0 mg 06/21/23 12:13 06/21/23 12:20 Albuterol/Ipratropium 3 ml INHALE 06/21/23 12:14 5 each ONCE ONE Administration Doxycycline Monohydrate 100 mg 06/21/23 13:31 06/21/23 13:54 Doxycycline Monohydrate 100 Mg Capsule PO 06/21/23 13:32 100 mg ONCE ONE Administration Furosemide 40 mg 06/21/23 13:31 06/21/23 13:54 Furosemide 40 Mg/4 Ml Vial IVPUSH 06/21/23 13:32 40 mg ONCE ONE Administration Protocol Prednisone 60 mg 06/21/23 13:31 06/21/23 13:55 Prednisone 20 Mg Tablet PO 06/21/23 13:32 60 mg ONCE ONE Administration Medical Decision Making Lab Data 06/21/23 09:52 06/21/23 09:52 Labs: Lab Results 06/21/23 Range/Units 09:52 WBC 10.5 (4.8-10.8) X10*3/uL RBC 3.19 L (4.20-5.50) X10*6/uL Hgb 8.5 L (12.0-16.0) g/dl Hct 28.7 L (37.0-47.0) % MCV 90.0 (80.0-98.0) fL MCH 26.6 L (27.0-33.0) pg MCHC 29.6 L (31.0-35.0) g/dl RDW 15.4 (11.0-16.0) % Plt Count 411 H (160-400) X10*3/uL MPV 9.5 (9.4-12.3) fL Immature Gran % (Auto) 0.4 (0.0-0.4) % Neut % (Auto) 82.5 H (45-73) % Lymph % (Auto) 8.5 L (20-40) % [place] % (Auto) 7.1 (2-11) % Eos % (Auto) 0.6 (0-4) % Baso % (Auto) 0.9 (0-2) % Lymph # (Auto) 0.9 L (1.2-4.9) X10*3/uL [place] # (Auto) 0.7 (0.1-1.2) X10*3/uL Eos # (Auto) 0.1 (0.0-0.4) X10*3/uL Baso # (Auto) 0.1 (0.0-0.2) X10*3/uL Abs Immat Gran (auto) 0.04 H (0.00-0.03) X10*3/uL Absolute Neuts (auto) 8.6 H (2.0-8.3) x10*3/uL Absolute Nucleated RBC 0.000 (0.0-0.012) X10*3/uL Nucleated RBC % (auto) 0.0 (0.0-0.2) /100WBC Sodium 142 (135-145) mmol/L Potassium 3.3 (3.3-5.1) mmol/L Chloride 100 (96-108) mmol/L Carbon Dioxide 33 H (22-29) mmol/L Anion Gap 12 (12-20) BUN 13 (9-16) mg/dL Creatinine 0.74 (0.5-1.4) mg/dL Estim Creat Clear Calc 58.7 Estimated GFR > 60 Random Glucose 140 H (60-115) mg/dL Calcium 9.0 (8.4-10.2) mg/dL Troponin I High Sens 13.0 D (<3.5-17.0) ng/L C-Reactive Protein 2.41 H (< or = 0.50) mg/dL B-Natriuretic Peptide 269 H (<100) pg/mL Influenza Type A (PCR) NEGATIVE (Negative) Influenza Type B (PCR) NEGATIVE (Negative) RSV RNA Qual (PCR) NEGATIVE (Negative) SARS-CoV-2 RNA (RT-PCR) NEGATIVE (Negative) Discharge Plan Discharge Clinical Impression: Shortness of breath, COPD with acute exacerbation, Congestive heart failure Patient Disposition: Home, Self-Care Additional Instructions: You have been started on antibiotic doxycycline. Please take this 2 times a day for 1 week. You have also been started on a brief course of prednisone. Take this once a day as prescribed until done. Please contact your regular doctor for a follow-up appointment in the next week or 2 to see how you are doing. Return to the emergency was significantly worse. Prescriptions: New prednisone 20 mg tablet 40 mg PO DAILY 4 Days Qty: 8 0RF doxycycline monohydrate 100 mg capsule 100 mg PO BID Qty: 14 0RF No Action Trelegy Ellipta 100-62.5-25 mcg blister with device 1 inh inhalation DAILY 30 Days Qty: 60 11RF gabapentin 300 mg capsule 300 mg PO BEDTIME 30 Days Qty: 30 6RF montelukast 10 mg tablet 10 mg PO DAILY Qty: 30 11RF albuterol sulfate [ProAir HFA] 90 mcg/actuation HFA aerosol inhaler 2 puff inhalation Q4-6H PRN (Reason: shortness of breath or wheezing) Qty: 8.5 0RF Eliquis 5 mg Tablet 5 mg PO BID Qty: 60 0RF dextromethorphan polistirex 30 mg/5 mL suspension,extended rel 12 hr 10 ml PO Q12H PRN (Reason: cough) Qty: 89 0RF albuterol sulfate 2.5 mg /3 mL (0.083 %) solution for nebulization 2.5 mg inhalation Q4-6H PRN (Reason: Wheezing) famotidine 20 mg tablet 20 mg PO DAILY@0800 pravastatin 40 mg tablet 40 mg PO DAILY@0800 ropinirole 0.25 mg tablet 0.25 mg PO DAILY@2000 citalopram 10 mg tablet 20 mg PO DAILY@0800 diltiazem HCl 240 mg capsule,extended release 24hr 240 mg PO DAILY Qty: 30 0RF Protocol: Hold for SBP/HR < HOLD for SBP < : 90 HOLD for HR < : 60 furosemide [Lasix] 20 mg tablet 40 mg PO BID (DME) nebulizers Mis See Rx Instructions .Route Rx Instructions: As directed (DME) Oxygen Home Use Kit See Rx Instructions .Route Rx Instructions: As directed ipratropium bromide 42 mcg (0.06 %) spray,non-aerosol 1 spray intranasal 3XD losartan 50 mg tablet 50 mg PO DAILY turmeric root extract 500 mg capsule 500 mg PO DAILY@0800 levofloxacin 500 mg tablet 500 mg PO DAILY 14 Days Qty: 14 0RF codeine-guaifenesin 10-100 mg/5 mL liquid 10 ml PO Q6H PRN (Reason: cough) 10 Days Qty: 300 0RF prednisone 10 mg tablet 10 mg PO DAILY 10 Days Qty: 10 0RF lisinopril 10 mg tablet 10 mg PO DAILY Referrals: Lizandro Gibbs MD [Primary Care Provider] - (Shortness of breath)
== END 2023-06-21 15:59 | disposition home or self-care (01) ==
PROVIDERS: Emergency Provider Emergency Medicine; PCP Internal Medicine
DX: R06.02 Shortness of breath (principal); J44.9 Chronic obstructive pulmonary disease, unspecified; I50.9 Heart failure, unspecified; Z99.81 Dependence on supplemental oxygen; Z20.822 Contact with and (suspected) exposure to COVID-19; Z20.828 Contact with and (suspected) exposure to other viral communicable diseases; Z79.899 Other long term (current) drug therapy
CPT/HCPCS: 0241U; 71046; 80048; 83880; 84484; 85025; 86140; 93005; 94640; 96374; 99284; 99285; J1940

== ENCOUNTER → 2023-06-21 11:26 | Outpatient (BNV) | payer MEDICARE, MEDICAID, SELFPAY | PROVIDERS: Emergency Provider Emergency Medicine; PCP Internal Medicine; Visit Provider Internal Medicine Cardiovascular Disease | DX: R06.09 Other forms of dyspnea (principal); I50.9 Heart failure, unspecified | CPT/HCPCS: 93010 ==

== ENCOUNTER 2023-07-09 13:10 | Outpatient (REF) | payer MEDICARE, SELFPAY ==
--- NOTE | ~2023-07-09 | XR_ITS ---
EXAMINATION: XR CHEST CLINICAL INFORMATION: Pneumonia, unspecified organism. COMPARISON: 06/21/2023 TECHNIQUE: 2 views of the chest were obtained. FINDINGS: There is no gross pneumothorax. S-shaped thoracolumbar scoliosis. Cardiomediastinal silhouette is unchanged. Redemonstration of mild linear bibasilar opacities, likely atelectasis/scar or vascular crowding versus pneumonia. No gross pleural effusion. XR/XR chest 2V IMPRESSION: Redemonstration of mild linear bibasilar opacities, likely atelectasis/scar or vascular crowding versus pneumonia.
--- NOTE | ~2023-07-09 | CT_ITS ---
EXAMINATION: CT CHEST WITHOUT CONTRAST CLINICAL INFORMATION: Newly developed left upper lobe spiculated nodule COMPARISON: CT scan of chest on 04/13/2023 TECHNIQUE: Multidetector volumetric CT imaging of the chest was done. Axial MIP volume rendering provided. Sagittal and coronal reformatted images were obtained. This CT examination was performed using dose optimization techniques as appropriate, variously including the following: *Automated exposure control *Adjustment of mA and/or kV according to patient size (this includes techniques or standardized protocols for targeted exams where dose is matched to indication/reason for exam; i.e. extremities or head) *Use of iterative reconstruction technique DLP: 195 mGy-cm FINDINGS: LUNGS: Evaluation is limited by respiratory motion blurring. The previously reported spiculated lesion in posterior left upper lobe apicoposterior segment now measures only 4.8 mm in diameter (previously 9 mm), series 5 image #83. A new Irregular subpleural alveolar density is visualized at posterior pleural border of left lower lobe posterior basal segment measuring 9.6 mm in AP diameter, 5.0 mm in width, 5.2 mm in vertical height, series 5 image #[id number], series 7 image #45. PLEURA: No pleural effusion or pneumothorax is seen. PERICARDIUM: No pericardial effusion is seen. MEDIASTINUM AND YAMILETH: Inadequate evaluation of the mediastinal and hilar lymph nodes due to absence of IV contrast filling the surrounding blood vessels. TRACHEOBRONCHIAL TREE: Trachea and bilateral mainstem bronchi are patent. THORACIC AORTA: The thoracic aorta is normal in size with scattered atherosclerotic calcifications. CORONARY ARTERY CALCIFICATIONS: Moderate PULMONARY ARTERIES: The main pulmonary arteries appear to be normal in size. CHEST WALL AND LOWER NECK: The subcutaneous and muscular chest wall are intact with no focal lesion. No abnormal mass lesion could be seen in the visualized lower neck. BONES: There are marked thoracic dextroscoliosis and thoracolumbar junction levoscoliosis. No fracture or dislocation. No focal bone lesion diagnostic of metastatic disease could be seen in the thorax. VISUALIZED UPPER ABDOMEN: Bilateral adrenal glands are not enlarged. CT/CT chest wo IV con IMPRESSION: 1. The previously reported spiculated lesion in the left upper lobe has significantly decreased in size. 2. There is a new subpleural relatively flat alveolar density in the left lower lobe posterior basal segment. 3. Unchanged Marked thoracic dextroscoliosis and thoracolumbar junction levoscoliosis. According to the UPDATED 2017 Fleischner Society recommendations, the advised follow-up imaging for a single solid nodule measuring greater than [address] at 3 months, PET/CT, or tissue sampling as clinically appropriate. Fleischner guidelines were followed.
== END 2023-07-09 13:11 | disposition home or self-care (01) ==
LOC: HO.CT 13:10
PROVIDERS: PCP Internal Medicine; Visit Provider Hospitalist
DX: R91.1 Solitary pulmonary nodule (principal); J18.9 Pneumonia, unspecified organism
CPT/HCPCS: 71046; 71250

== ENCOUNTER 2023-07-22 14:48 | Outpatient (AMB) | payer MEDICARE, SELFPAY ==
[2023-07-22 14:48] VITALS: BMI 34.2
--- NOTE | 2023-07-22 14:48 | A.OFFVIS_ITS ---
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 Apparently she was in usual state health until recently her became sick with RSV and was admitted to the [facility]. For the last couple weeks she has had worsening respiratory symptoms. She has been evaluated twice by her primary care doctor. She has been given antibiotics and prednisone. However, she continues to worsen. Today she has been using 4 L pulse on her oxygen device. She is using a mask and she was noted to be 88%. However, the patient is not activating the oxygen based on the fact that she her nasal passages are congested and she is breathing through her mouth. Therefore I switched her oxygen to continues 2 L and she maintain a pulse ox of 92%. I explained to the patient that she is to avoid using the conserving device valve at this time. The patient was provided additional antibiotics and prednisone. If she is no better in 24-48 hours. she has to go to the hospital. However, if she worsens she also she go the hospital. ??? 08/04/2022 the patient is here for a sick visit. Apparently she has been having issues with heart. She was admitted briefly at [facility] and then here [facility] found to have AFib with rapid ventricular response. She was placed on Eliquis and ultimately had her calcium channel sary increase for rate control. The patient has been having worsening cough however. Her cough is persistent and moderate to severe. At times is productive of yellow phlegm. Having hard time sleeping because of the cough. She has tried multiple [id number]-[id number] remedies without any significant improvement. On examination seems like she has a good amount of purulent secretions that are coming down her posterior pharynx suggesting a component of sinusitis. the patient also had chest x-rays while being in the hospital July demonstrating some degree of atelectasis and minimal pleural effusion. We talked about her medications including lisinopril that is likely not helping with her cough. Although as part of the primary cause of the cough. At this point based on the severity of the cough will be reasonable to switch her to an ARB. 09/22/2022 the patient is here for pulmon castillo follow-up visit. She is finally feeling better. The cough significantly better. She still has a productive cough and brings up phlegm. We did talk about performing CPT with flutter valve. She does have 1 available and she can use it twice a day. Explained to her that she is always going to bring up some phlegm. At this time the azithromycin 3 times a week seems to be helpful. Coming off the lisinopril is also helpful. The Trelegy inhaler she is using once a day with good effect. Sometimes it makes her cough. I did instruct her to she is taking little softer so she does not irritate too much to the upper airway. The AFib seems to be in good control. We did review her x-ray from July 10 with demonstrating some minimal atelectasis and scoliosis. And at this point will plan to follow-up in 4 months. If the patient has any difficulties prior to that she is to call the office for an earlier evaluation. 11/19/2022 the patient is here for a pulmonary follow-up visit. The patient is feeling better. Her Wilfred inhibitor was stopped and her cough is improved. Although she still has a little productive phlegm. It does bother her. Does not seen significant improvement with the azithromycin. Will go ahead and stop it. I did request a sputum culture will try couple weeks of doxycycline to see if we can clear any significant mucus. Recently she did have a CT scan of the chest done beginning of November 2022 in a personally reviewed it. She does have some moderate degree amount of emphysema and also scoliosis. She also has atelectasis primarily in the left hemithorax there is a segment that appears to be nearly completely obstructed. If the patient continues symptomatic consider bronchoscopy to assess that airway to make sure there was no endobronchial blockage. But at this point clinically the patient is better overall and will try to minimize any semi invasive procedures. Will reassess in a few months. 01/20/2023 the patient is here for pulmonary follow-up visit. Overall the patient is feeling better. She did complete the antibiotics and the chest physical therapy. She continues to have dyspnea on exertion. She also has some fluid overload issues. Her x-ray she had back in July she did have small pleural effusions as well. The patient will benefit from additional diuresis specially with pulmonary hypertension. Holding off on any invasive or semi- invasive diagnostic interventions at this time. She continues use the oxygen with good effect. She continues use her respiratory therapy as well. Will go ahead and prescribe Lasix that she can use for 3-5 days and will monitor closely her weight and her lower extremity edema. If the patient continues use the diuretics she will need to have blood work to monitor her electrolytes and kidney function. 04/29/2023 the patient is here for sick visit. The patient apparently was in his usual state health until sometime in the beginning of April when she started developing worsening respiratory symptoms. The patient was brought to the [facility] ER where she was evaluated. She was admitted to the hospital with COPD exacerbation. She was treated with steroids antibiotics and also respiratory treatments. The patient was able to be discharged. However, she states that upon discharge her cough got worse. She started developing worse chest congestion and also sinus congestion. Moderate severity. She is been using her oxygen more and had to increase the dose. She is been having hard time. She has been on prednisone tapering down currently on 20 mg. on exam she is very rhonchorous with a prolonged expiratory phase and wheezing. She was given a Xopenex and hypertonic saline nebulizer treatment in a sputum culture was able to be sent to the laboratory. In the meantime the patient appears to have a postviral bacterial infection in the lower respiratory now so likely the upper respiratory tract. Therefore, will start her on broad-spectrum antibiotics and will also extend her prednisone use. If the patient is no better she will come in for an x-ray and she will call the office. However, if her symptoms worsen she may need to go back to the ER. 05/13/2023 the patient is here for pulmon castillo follow-up visit. She is no better. She is having still significant cough. Productive in nature. Has a hard time sleeping because of the cough. Moderate severity. Feels is more over sinuses now. She does have Afrin nasal spray that she can use to 5 days. She did complete the prednisone. She also completed the Vantin. Based on the fact that she is still very congested will go ahead and start her on levofloxacin. The patient can start his low-dose prednisone as well to try to help with the inflammation. And will follow-up with her after her CT scan. The patient develops any worsening symptoms she can always call and we can consider bronchoscopy. She is also complaining of some pleuritic chest discomfort. Currently better. I did advise that if her discomfort returns or if it worsens that she should go to the ER for further evaluation. 07/22/2023 the patient has a telehealth v isit today. Her family sick with COVID she does not have COVID as of yet but taking precautions. She is still complaining of productive cough. Her cough is yellowish and green in color. Moderate severity. Sometimes she gets anxious because of the burden of mucus. We did start him on Augmentin but has not seen any significant improvement after several days. She has not finding that she is wheezing at this time. Therefore will hold off on any prednisone. She did respond better to Levaquin in the past. She may have an enteric resistant organism. We did request a sputum culture but she was not able to perform just yet. Will go ahead and switch her again to Levaquin to see if she can feel better. If not will definitely have to get a sputum culture. We did review her recent CT scan of the chest that she had demonstrating interval improvement in the left upper lobe pulmonary nodule going from 9 mm spiculated to now 4.8 mm nodule. This is very reassuring. She does have a new density in the left lower lobe which is not too concerning likely some degree of atelectasis but is definitely new will need follow-up. The patient will return in a couple months to see how her progresses and otherwise will call sooner if her symptoms are not any better. FOR[facility]LY [facility] Medical History Lung nodule Pleural effusion Pulmonary hypertension Mitral annular calcification Aortic valve calcification Cough Sinusitis Chronic respiratory failure COPD (chronic obstructive pulmonary disease) Pneumonia Surgical History No pertinent past surgical history Family History Brother Myocardial infarction Father Stroke Social History Household Members: Children Household Members Other:: Daughter and family Housing: House Do you presently have visiting nurse or other home services: Yes (meals on wheels) Alcohol intake: never Patient Tobacco Use Status: Never used Tobacco Tobacco use type: Cigarette e-Cigarette/Vaping Use: Never Used Second Hand Smoke Exposure: No Advance Directives Date on File: 06/21/23 service: No Current occupational status: retired Review of Systems Const Reports difficulty sleeping, Denies fever(s) and Denies night sweats ENT Denies change in voice, Denies lip swelling, Denies mouth pain, Reports nasal congestion, Reports nasal discharge, Reports post nasal drip, Reports sinus pressure and Denies tongue swelling Card Denies chest pain, Reports dyspnea and Reports dyspnea on exertion Resp Reports change in phlegm color, Reports chest congestion, Reports cough, Denies hemoptysis, Reports dyspnea, Reports dyspnea on exertion and Denies wheezing GI Denies abdominal pain Musc Denies no additional complaints Neuro Denies Neuro-related abnormal movements Psych Denies no additional complaints Celestine/Lymph Denies easy bleeding and Denies lymphadenopathy Aller/Immun Denies lip swelling, Denies tongue swelling and Denies wheezing Physical Exam Vital Signs: BMI result Body Mass Index 34.2 Const General: cooperative Orientation/consciousness: patient oriented x3 Resp Effort & Inspection: normal respiratory effort and able to speak in complete sentences Neuro General: patient oriented x3 Assessment & Plan Assessment & Plan (1) COPD (chronic obstructive pulmonary disease): Code(s): J44.9 - Chronic obstructive pulmonary disease, unspecified Qualifiers: COPD type: COPD with acute lower respiratory infection Qualified Code(s): J44.0 - Chronic obstructive pulmonary disease with (acute) lower respiratory infection (2) Chronic respiratory failure: Code(s): J96.10 - Chronic respiratory failure, unspecified whether with hypoxia or hypercapnia Qualifiers: Respiratory failure complication: hypoxia Qualified Code(s): J96.11 - Chronic respiratory failure with hypoxia (3) Cough: Code(s): R05.9 - Cough, unspecified Qualifiers: Cough type: chronic Qualified Code(s): R05.3 - Chronic cough (4) Pulmonary hypertension: Code(s): I27.20 - Pulmonary hypertension, unspecified (5) Pleural effusion: Code(s): J90 - Pleural effusion, not elsewhere classified (6) Bronchopneumonia: Code(s): J18.0 - Bronchopneumonia, unspecified organism (7) Lung nodule: Code(s): R91.1 - Solitary pulmonary nodule Plan stop Augmentin start Levaquin x 10 days hypertonic saline for CPT continue oxygen supplementation 3 L/pulse with activity with POC gabapentin at nighttime Trelegy daily short-acting beta agonist as needed Nasal saline at night Should retest for covid 19, if positve will benefit from Paxlovid F/U 2 months Medications: New dextromethorphan-guaifenesin 10-100 mg/5 mL 10 mL PO Q6H 14 days PRN 500 mL 2RF cough levofloxacin 500 mg PO DAILY 10 days 10 tabs 0RF Telehealth Telehealth Location of provider rendering services: practice address Patient Identification confirmed using: Name, : Yes Telehealth method: voice only Patient verbally consented to treatment: Yes Patient verbally consented to billing insurance company: Yes Patient informed of any privacy concerns related to visit: Yes Coding Level of Care Code Tele Est Pt Level 4 (54301) Diagnoses Chronic obstructive pulmonary disease with acute lower respiratory infection J44.0 COPD type: COPD with acute lower respiratory infection Chronic respiratory failure with hypoxia J96.11 Respiratory failure complication: hypoxia Chronic cough R05.3 Cough type: chronic Pulmonary hypertension I27.20 Pleural effusion J90 Bronchopneumonia J18.0 Lung nodule R91.1 Time Spent (min) 16
== END 2023-07-22 15:04 | disposition home or self-care (01) ==
LOC: HO.HPS 14:48
PROVIDERS: PCP Internal Medicine; Visit Provider Hospitalist
DX: J44.0 Chronic obstructive pulmonary disease with (acute) lower respiratory infection (principal); J96.11 Chronic respiratory failure with hypoxia; I27.20 Pulmonary hypertension, unspecified; J90 Pleural effusion, not elsewhere classified; J18.0 Bronchopneumonia, unspecified organism; R91.1 Solitary pulmonary nodule
CPT/HCPCS: 99442

== ENCOUNTER → 2023-07-22 14:48 | Outpatient (BNVA) | payer MEDICARE, SELFPAY | PROVIDERS: PCP Internal Medicine; Visit Provider Hospitalist ==

== ENCOUNTER 2023-08-26 17:39 | Inpatient (IN) | payer MEDICARE, MEDICAID, SELFPAY ==
[2023-08-26] VITALS (11 sets, daily range): BP systolic 109–144; BP diastolic 30–55; PULSE 76–145; RESP 16–28; TEMP 36.9–37.3; O2SAT 48–100; BMI 32.1
--- NOTE | ~2023-08-26 | XR_ITS ---
EXAMINATION: XR CHEST CLINICAL INFORMATION: Increasing SOB, hypoxia COMPARISON: None available. TECHNIQUE: Frontal view of the chest was obtained. FINDINGS: The lungs are somewhat well-expanded without any acute pneumonic process. There is minimal bibasilar atelectasis. Heart size is normal. Pulmonary vascularity is prominent but no congestion seen. There is old healed right posterior right sixth rib healed fracture no other bony abnormality seen. Incidental finding of a tubular catheter overlying the left posterior fourth rib. This may be a broken lead, wire or tubing. It was not seen on 08/26/2023 exam XR/XR chest 1V IMPRESSION: 1. Minimal bibasilar atelectasis. No acute pneumonic process. 2. Incidental finding of a tubular catheter overlying the left posterior fourth rib. This may be a broken lead, wire or tubing or artifact. New since the last chest x-ray 08/26/2023
--- NOTE | ~2023-08-26 | XR_ITS ---
EXAMINATION: XR CHEST CLINICAL INFORMATION: Chest pain and shortness of breath COMPARISON: Previous chest x-ray July 2019 TECHNIQUE: Frontal view of the chest was obtained. FINDINGS: The cardiac and mediastinal contours are stable. There is subsegmental atelectasis at the right lung base. There is a small left pleural effusion. There is no pneumothorax. There is thoracal lumbar scoliosis and degenerative changes of the spine. There are old right rib fractures XR/XR chest 1V IMPRESSION: Subsegmental atelectasis at the right lung base. Small left pleural effusion.
--- NOTE | 2023-08-26 17:42 | ECG_ITS ---
Test Reason : CHEST PAIN Blood Pressure : / mmHG Vent. Rate : 090 BPM Atrial Rate : 090 BPM P-R Int : 188 ms QRS Dur : 080 ms QT Int : 362 ms P-R-T Axes : 109 071 084 degrees QTc Int : 442 ms Sinus rhythm with Premature supraventricular complexes and with occasional Premature ventricular complexes Otherwise normal ECG When compared with ECG of 21-JUN-2023 11:47, Premature ventricular complexes are now Present Premature supraventricular complexes are now Present Referred By: Shawanda Valdez Electronically Signed By:ALEXA VILLA MD
[2023-08-26] MEDS: Albuterol Sulfate 7.5 MG, Albuterol/Iprat 2.5/0.5MG 3 ML 3 ML INHALE (18:00)
[2023-08-26] MEDS: methylPREDNISolone Sod Succ 125 MG/2 ML VIAL IVPUSH (18:16)
[2023-08-26 18:18] LABS: MANUAL DIFF FLAG NO
[2023-08-26 18:19] LABS: Basophils Absolute Auto 0.1 X10*3/uL (0.0-0.2); Basophils Percent Auto 0.4 % (0-2); Eosinophils Absolute Auto 0.1 X10*3/uL (0.0-0.4); Eosinophils Percent Auto 0.6 % (0-4); Hematocrit 32.2 % (37.0-47.0); Hemoglobin 9.6 g/dl (12.0-16.0); Imm Gran Pct Auto 0.6 % (0.0-0.4); Lymphocytes Absolute Auto 0.8 X10*3/uL (1.2-4.9); Lymphocytes Percent Auto 5.1 % (20-40); Mean Corpuscular HGB Conc 29.8 g/dl (31.0-35.0); Mean Corpuscular Hemoglobin 25.7 pg (27.0-33.0); Mean Corpuscular Volume 86.1 fL (80.0-98.0); Monocytes Absolute Auto 1.4 X10*3/uL (0.1-1.2); Monocytes Percent Auto 8.7 % (2-11); Neutrophils Absolute Auto 13.2 x10*3/uL (2.0-8.3); Neutrophils Percent Auto 84.6 % (45-73); Platelet Count 342 X10*3/uL (160-400); Red Blood Count 3.74 X10*6/uL (4.20-5.50); Red Cell Distribution Width 19.4 % (11.0-16.0); White Blood Count 15.6 X10*3/uL (4.8-10.8)
[2023-08-26 18:26] LABS: INTERNATIONAL NORM RATIO 1.6 (0.9-1.1); Prothrombin Time 19.5 SEC (11.1-13.3)
[2023-08-26 18:29] LABS: Lactic Acid 1.1 mmol/L (0.5-2.0)
[2023-08-26] MEDS: Albuterol Sulfate 7.5 MG, Albuterol Sulfate (0.083%) 2.5 MG 10 MG INHALE (18:32)
[2023-08-26 18:34] LABS: Alanine Aminotransferase 9 U/L (0-31); Albumin Level 3.6 g/dL (3.5-5.0); Alkaline Phosphatase 89 U/L (39-117); Anion Gap 12 (12-20); Aspartate Amino Transferase 14 U/L (5-31); Bilirubin Direct 0.2 mg/dL (0.0-0.5); Bilirubin Total 0.3 mg/dL (0.0-1.0); Blood Urea Nitrogen 10 mg/dL (9-16); Calcium 9.2 mg/dL (8.4-10.2); Carbon Dioxide 34 mmol/L (22-29); Chloride 96 mmol/L (96-108); Creatinine Clr Calc Pharmacy 64.9; Estimated Glomerular Filt Rate > 60; Glucose Random 142 mg/dL (60-115); Magnesium 1.7 mg/dL (1.6-2.6); Potassium 3.1 mmol/L (3.3-5.1); Sodium 139 mmol/L (135-145); Total Protein 7.7 g/dL (6.5-8.0)
--- NOTE | 2023-08-26 18:38 | PC.NURSE ---
initially presenting 48% on 4L from triage, patient placed on oxymask - improved to the 90's. respiratory at bedside with duonebs, patient reporting improvement after treatments. color has improved at this time. IV established, labs obtained and sent.
[2023-08-26 18:39] LABS: B Type Natriuretic Peptide 343 pg/mL (<100)
[2023-08-26 18:40] LABS: Troponin-I High Sensitivity 12.5 ng/L (<3.5-17.0)
[2023-08-26 19:12] LABS: Influenza A PCR NEGATIVE (Negative); Influenza B PCR NEGATIVE (Negative); Resp Syncy Virus RNA Qual PCR NEGATIVE (Negative); SARS COV2 PCR INHOUSE NEGATIVE (Negative)
[2023-08-26] MEDS: Magnesium Sulfate/H2O 2 GM/50 ML PIGGYBACK IV (19:13)
--- NOTE | 2023-08-26 19:14 | ED.SOB ---
HPI - SOB/Dyspnea General Chief Complaint: Dyspnea Stated Complaint: chest lisa, sob x2 days Time Seen by Provider: 08/26/23 17:45 Source: patient and family Mode of arrival: ambulatory Limitations: no limitations History of Present Illness HPI Narrative: Patient presents with hypoxia and increasing shortness of breath. SOB started 2 days ago, she denies fever or illness MD elicited complaint: shortness of breath and cough Pertinent past history: COPD Onset (ago): day(s) Known history of: COPD Related Data Home Medications Medication Instructions Recorded Confirmed albuterol sulfate 2.5 mg/3 mL 2.5 mg inhalation Q4-6H PRN 03/07/21 06/15/23 (0.083 %) solution for nebulization Wheezing famotidine 20 mg tablet 20 mg PO DAILY@79903/07/21 06/15/23 pravastatin 40 mg tablet 40 mg PO DAILY@79903/07/21 06/15/23 ropinirole 0.25 mg tablet 0.25 mg PO DAILY@199903/07/21 06/15/23 citalopram 10 mg tablet 20 mg PO DAILY@79909/19/21 06/15/23 turmeric root extract 500 mg 500 mg PO DAILY@79909/19/21 06/15/23 capsule Oxygen Home Use 09/22/22 06/15/23 nebulizers 09/22/22 06/15/23 furosemide 20 mg tablet (Lasix) 40 mg PO BID 01/19/23 06/15/23 ipratropium bromide 42 mcg (0.06 1 spray intranasal 3XD 01/19/23 06/15/23 %) nasal spray lisinopril 10 mg tablet 10 mg PO DAILY 03/10/23 06/15/23 losartan 50 mg tablet 50 mg PO DAILY 03/10/23 06/15/23 Previous Rx's Medication Instructions Recorded albuterol sulfate 90 mcg/actuation 2 puff inhalation Q4-6H PRN 02/17/21 aerosol inhaler (ProAir HFA) shortness of breath or wheezing #8.5 grams apixaban 5 mg tablet (Eliquis) 5 mg PO BID #60 tabs 07/11/22 diltiazem HCl 240 mg 240 mg PO DAILY #30 caps 08/13/22 capsule,extended release 24 hr fluticasone fur. 100 mcg-umeclid 1 inh inhalation DAILY 30 days #60 09/10/22 62.5 mcg-vilant 25 mcg ea inhalat.powder (Trelegy Ellipta) gabapentin 300 mg capsule 300 mg PO BEDTIME 30 days #30 caps 03/24/23 dextromethorphan polistirex 30 10 ml PO Q12H PRN cough #89 mL 04/19/23 mg/5 mL oral susp ext.release 12hr codeine 10 mg-guaifenesin 100 mg/5 10 ml PO Q6H PRN cough 10 days 05/13/23 mL oral liquid #300 mL montelukast 10 mg tablet 10 mg PO DAILY #30 tabs 06/07/23 amoxicillin 875 mg-potassium 1 tab PO BID 10 days #20 tabs 07/16/23 clavulanate 125 mg tablet dextromethorphan-guaifenesin 10 10 ml PO Q6H PRN cough 14 days 07/22/23 mg-100 mg/5 mL oral syrup #500 mL levofloxacin 500 mg tablet 500 mg PO DAILY 10 days #10 tabs 07/22/23 Allergies Allergy/AdvReac Type Severity Reaction Status Date / Time No Known Allergies Allergy Verified 06/15/23 14:18 Review of Systems Review of Systems: Yes all other systems are reviewed and are negative Neurologic: Denies Sensory deficit (Neuro) PMF Past Medical History Medical History Lung nodule Pleural effusion Pulmonary hypertension Mitral annular calcification Aortic valve calcification Cough Sinusitis Chronic respiratory failure COPD (chronic obstructive pulmonary disease) Pneumonia Surgical History No pertinent past surgical history Family History Family History Brother Myocardial infarction Father Stroke Social History Social History Household Members: Children Household Members Other:: Daughter and family Housing: House Do you presently have visiting nurse or other home services: Yes (meals on wheels) Alcohol intake: never Patient Tobacco Use Status: Never used Tobacco Tobacco use type: Cigarette e-Cigarette/Vaping Use: Never Used Second Hand Smoke Exposure: No Advance Directives: Yes Advance Directives on File: Yes Advance Directives Date on File: 06/21/23 service: No Current occupational status: retired Physical Exam Vital Signs: Vital Signs: Last Vital Signs Temp 99.1 F 08/26/23 17:53 Pulse 94 08/26/23 18:35 Resp 24 H 08/26/23 18:35 BP 144/55 H 08/26/23 17:53 Pulse Ox 48 L 08/26/23 17:53 O2 Del Method Nasal Cannula 08/26/23 17:53 O2 Flow Rate 4 08/26/23 17:48 Oxygen Flow Rate 4 08/26/23 17:53 BMI result Body Mass Index 32.1 Const: Other: female very short of breath, cyanosis Nutritional Appearance: average body habitus Orientation/consciousness: oriented to person and patient oriented x3 Limitations: no limitations HEENT: Head: Yes normal to inspection Ears: external ears normal General nose exam: Normal external nose present Mouth: Normal oral and palatal mucosa present and oropharynx normal Throat: Yes posterior oropharynx normal Eyes: General: appearance normal, both eyes and all related structures Neck: Other: supple Neck: Yes normal visual inspection Chest: Chest palpation & inspection: normal inspection of the chest Resp: Other: diffuse rhonchi Cardio: Jugular venous distension: no JVD Rate: regular rate Rhythm: regular rhythm Heart sounds: S1 normal heart sound present and S2 normal heart sound present GI: Inspection: Yes normal to inspection Palpation (GI): Soft to palpation, nontender and No hepatosplenomegaly present Auscultation: normal bowel sounds : General: Yes no CVA tenderness Back/Spine/Pelvis: Back: no CVA tenderness Skin: Other: cyanosis Neuro: General: oriented to person and patient oriented x3 Cranial nerves: Yes CN's II-XII intact bilaterally Motor exam (neuro): 5/5 motor strength present throughout Sensory Exam: No Sensory deficit (Neuro) Extrem: General: Yes normal to inspection Psych: Appearance: grossly normal Course Reevaluation(s) Reevaluation #1: patient breathing better but now went into afib. she has a COPD exacerbation, no pneumonia on xray, no sepsis Time: 19:31 Reevaluation #2: I spent 40 minutes of critical care, with interventions, assessments, speaking to patient, consultants, and family. Time: 19:31 Medications Administered Generic Name Dose Route Start Last Admin Trade Name Freq PRN Reason Stop Dose Admin Magnesium Sulfate 2 gm in 50 mls @ 25 mls/hr 08/26/23 18:45 08/26/23 19:13 Magnesium Sulfate/H2o IV 08/26/23 20:44 25 mls/hr ONCE ONE Administration Discontinued Medications Generic Name Dose Route Start Last Admin Trade Name Rich PRN Reason Stop Dose Admin Albuterol Sulfate 7.5 mg/ 10 mg 08/26/23 18:28 08/26/23 18:32 Albuterol Sulfate 2.5 mg INHALE 08/26/23 18:29 10 mg ONCE ONE Administration Albuterol Sulfate 7.5 mg/ 0 mg 08/26/23 17:58 08/26/23 18:00 Albuterol/Ipratropium 3 ml INHALE 08/26/23 17:59 2.5 each ONCE ONE Administration Methylprednisolone Sodium Succinate 125 mg 08/26/23 17:50 08/26/23 18:16 Methylprednisolone Sod Succ 125 Mg/2 Ml Vial IVPUSH 08/26/23 17:51 125 mg ONCE ONE Administration Medical Decision Making Differential Diagnosis Differential Diagnoses: The differential diagnosis associated with the presentation includes (COPD exacerbation, CHF, pneumonia were all considered) Admission/Observation Consideration of admission/observation: Escalation of care including admission/observation considered (upon arrival patient was considered for admission) Consult Healthcare Provider Management of the patient was discussed with: Hospitalist Lab Data Elevated WBC noted 08/26/23 18:09 08/26/23 18:09 Labs: Lab Results 08/26/23 08/26/23 Range/Units 18:09 18:31 WBC 15.6 H (4.8-10.8) X10*3/uL RBC 3.74 L (4.20-5.50) X10*6/uL Hgb 9.6 L (12.0-16.0) g/dl Hct 32.2 L (37.0-47.0) % MCV 86.1 (80.0-98.0) fL MCH 25.7 L (27.0-33.0) pg MCHC 29.8 L (31.0-35.0) g/dl RDW 19.4 H (11.0-16.0) % Plt Count 342 (160-400) X10*3/uL MPV 10.0 (9.4-12.3) fL Immature Gran % (Auto) 0.6 H (0.0-0.4) % Neut % (Auto) 84.6 H (45-73) % Lymph % (Auto) 5.1 L (20-40) % [place] % (Auto) 8.7 (2-11) % Eos % (Auto) 0.6 (0-4) % Baso % (Auto) 0.4 (0-2) % Lymph # (Auto) 0.8 L (1.2-4.9) X10*3/uL [place] # (Auto) 1.4 H (0.1-1.2) X10*3/uL Eos # (Auto) 0.1 (0.0-0.4) X10*3/uL Baso # (Auto) 0.1 (0.0-0.2) X10*3/uL Abs Immat Gran (auto) 0.10 H (0.00-0.03) X10*3/uL Absolute Neuts (auto) 13.2 H (2.0-8.3) x10*3/uL Absolute Nucleated RBC 0.000 (0.0-0.012) X10*3/uL Nucleated RBC % (auto) 0.0 (0.0-0.2) /100WBC PT 19.5 H (11.1-13.3) SEC INR 1.6 H (0.9-1.1) Sodium 139 (135-145) mmol/L Potassium 3.1 L (3.3-5.1) mmol/L Chloride 96 (96-108) mmol/L Carbon Dioxide 34 H (22-29) mmol/L Anion Gap 12 (12-20) BUN 10 (9-16) mg/dL Creatinine 0.65 (0.5-1.4) mg/dL Estim Creat Clear Calc 64.9 Estimated GFR > 60 Random Glucose 142 H (60-115) mg/dL Lactic Acid 1.1 (0.5-2.0) mmol/L Calcium 9.2 (8.4-10.2) mg/dL Magnesium 1.7 (1.6-2.6) mg/dL Total Bilirubin 0.3 (0.0-1.0) mg/dL Direct Bilirubin 0.2 (0.0-0.5) mg/dL AST 14 (5-31) U/L ALT 9 (0-31) U/L Alkaline Phosphatase 89 (39-117) U/L Troponin I High Sens 12.5 (<3.5-17.0) ng/L B-Natriuretic Peptide 343 H (<100) pg/mL Total Protein 7.7 (6.5-8.0) g/dL Albumin 3.6 (3.5-5.0) g/dL Influenza Type A (PCR) NEGATIVE (Negative) Influenza Type B (PCR) NEGATIVE (Negative) RSV RNA Qual (PCR) NEGATIVE (Negative) SARS-CoV-2 RNA (RT-PCR) NEGATIVE (Negative) Independent Interpretation I performed an independent interpretation of an: EKG (atrial fibrillation with lateral twave depression likely rate related) and Plain X-Ray (no infiltrate) Independent Historian Clinical information obtained from an independent historian. History obtained from or confirmed by: Other (daughter) Chronic Conditions Patient?s care impacted by: Other (COPD, atrial fibrillation) Discharge Plan Discharge Clinical Impression: COPD (chronic obstructive pulmonary disease), PAF (paroxysmal atrial fibrillation), Respiratory failure Patient Disposition: Admitted As Inpatient Prescriptions: No Action Trelegy Ellipta 100-62.5-25 mcg blister with device 1 inh inhalation DAILY 30 Days Qty: 60 11RF gabapentin 300 mg capsule 300 mg PO BEDTIME 30 Days Qty: 30 6RF montelukast 10 mg tablet 10 mg PO DAILY Qty: 30 11RF amoxicillin-pot clavulanate 875-125 mg tablet 1 tab PO BID 10 Days Qty: 20 0RF albuterol sulfate [ProAir HFA] 90 mcg/actuation HFA aerosol inhaler 2 puff inhalation Q4-6H PRN (Reason: shortness of breath or wheezing) Qty: 8.5 0RF Eliquis 5 mg Tablet 5 mg PO BID Qty: 60 0RF dextromethorphan polistirex 30 mg/5 mL suspension,extended rel 12 hr 10 ml PO Q12H PRN (Reason: cough) Qty: 89 0RF albuterol sulfate 2.5 mg /3 mL (0.083 %) solution for nebulization 2.5 mg inhalation Q4-6H PRN (Reason: Wheezing) famotidine 20 mg tablet 20 mg PO DAILY@0800 pravastatin 40 mg tablet 40 mg PO DAILY@0800 ropinirole 0.25 mg tablet 0.25 mg PO DAILY@2000 citalopram 10 mg tablet 20 mg PO DAILY@0800 diltiazem HCl 240 mg capsule,extended release 24hr 240 mg PO DAILY Qty: 30 0RF Protocol: Hold for SBP/HR < HOLD for SBP < : 90 HOLD for HR < : 60 furosemide [Lasix] 20 mg tablet 40 mg PO BID (DME) nebulizers Misc See Rx Instructions .Route Rx Instructions: As directed (DME) Oxygen Home Use Kit See Rx Instructions .Route Rx Instructions: As directed ipratropium bromide 42 mcg (0.06 %) spray,non-aerosol 1 spray intranasal 3XD losartan 50 mg tablet 50 mg PO DAILY turmeric root extract 500 mg capsule 500 mg PO DAILY@0800 levofloxacin 500 mg tablet 500 mg PO DAILY 10 Days Qty: 10 0RF dextromethorphan-guaifenesin 10-100 mg/5 mL syrup 10 ml PO Q6H PRN (Reason: cough) 14 Days Qty: 500 2RF codeine-guaifenesin 10-100 mg/5 mL liquid 10 ml PO Q6H PRN (Reason: cough) 10 Days Qty: 300 0RF lisinopril 10 mg tablet 10 mg PO DAILY
--- NOTE | 2023-08-26 19:15 | ECG_ITS ---
Test Reason : TACHYCARDIA Blood Pressure : / mmHG Vent. Rate : 129 BPM Atrial Rate : 000 BPM P-R Int : 000 ms QRS Dur : 082 ms QT Int : 300 ms P-R-T Axes : 000 071 -47 degrees QTc Int : 439 ms Atrial fibrillation with rapid ventricular response Marked ST abnormality, possible inferior subendocardial injury Abnormal ECG When compared with ECG of 26-AUG-2023 18:14, Atrial fibrillation has replaced Sinus rhythm ST now depressed in Inferior leads ST now depressed in Anterior leads Nonspecific T wave abnormality now evident in Inferior leads Referred By: Leif Jean Electronically Signed By:ALEXA VILLA MD
[2023-08-26] MEDS: dilTIAZem HCL 50 MG/10 ML VIAL 10 MG IVPUSH ×2 (19:37→20:27)
[2023-08-26] MEDS: cefTRIAXone sodium 1 GM in 0.9 % Sodium Chloride 50 ML IV (19:43)
--- NOTE | 2023-08-26 19:46 | PC.NURSE ---
this rn assumed care of pt. pt heart rate tachy at 130-145, aware, repeat ekg obtained. pt medicated per sep at this time. pt noted to have productive cough, pt on oxymax 9L sating 99%.
--- NOTE | 2023-08-26 20:30 | PC.NURSE ---
talking full sentences, hr 110s-140 at this time. gave cardizem iv per sep.
[2023-08-26] MEDS: Acetaminophen 325 MG TABLET 650 MG PO (21:03)
--- NOTE | 2023-08-26 21:15 | PC.NURSE ---
pt assisted to beside commode, pt placed back into bed and reports shortness of breath. aware and reports titrating oxygen to 6L oxymax, pt sating 90-94%.
--- NOTE | 2023-08-26 21:20 | PHA.MEDREC ---
Pharmacy Consult ? Medication Reconciliation Pharmacy has completed the medication reconciliation.Confirmed medication with patient, daughter, and claim history. Daughter reported that patient is taking ropinerole BID instead if TID. Also reported that Losatan and lisinopril were D/C. Also reports that patient is taking 40mg of citalopram. Daughter called office and was told by nurse that 40 mg was the new dose (which equals the 2 prescriptions in claim history): take 1.5 QD (20mg for total of 30mg) and second prescription is 1 QD (10mg) for grand total of 40mg
--- NOTE | 2023-08-26 21:32 | P.HPHOSP_ITS ---
History of Present Illness Date of Service: 08/26/23 Attending physician on admission: Lisa Becerra Chief Complaint: SOB, chest pain Pt is an 82-year-old female with a PMH significant for?chronic hypoxemic respiratory failure, COPD on chronic 2 L home O2, paroxysmal AFib on Eliquis, HTN, HLD, venous insufficiency with chronic lower leg edema, and anxiety who presents to the ED with?increasing shortness of breath, difficulty breathing, and chest pain for the past 2-3 days. Patient states symptoms began on Wednesday night when she developed shortness of, PRADO, and cough productive of large amounts of yellowish phlegm. The following day patient also experienced central, nonradiating chest pain throughout most of the day, which the patient describes as feeling like there was a large weight on her chest. Today chest pain has been less pronounced. Had difficulty breathing and became short of breath with the slightest amount of exertion. Patient denies nausea, vomiting, abdominal pain. No fever or chills. Of note, initially patient was in normal sinus rhythm when she presented to the ED, but then went into AFib with RVR after being here for approximately 1-1/2 hours. In the ED pt was tachycardic up to 145, tachypneic up to 28, with elevated temperature of 99.1 degrees, and satting as low as 48% on 4 L NC. Labs were significant for leukocytosis 15.6, H&H of 9.6/32.2, potassium 3.1, bicarb 34, and BNP 343. CXR showed subsegmental atelectasis at the right lung base with small left pleural effusion. Initial EKG demonstrated sinus rhythm of 90 with premature supraventricular complexes with occasional PVCs. Repeat EKG showed AFib with RVR of [address] depressions in anterior lateral leads. Pt was treated with DuoNebs, Solu-Medrol, Mag sulfate, diltiazem 10 mg IV x2 doses, and ceftriaxone. Pt will be admitted to the hospital for treatment further evaluation of acute on chronic hypoxic respiratory failure in the setting of COPD exacerbation with sepsis and AFib with RVR. Review of Systems 2 Review of Systems: SOB, PRADO Productive cough Chest pain/pressure Denies fever, chills, nausea, vomiting, abdominal pain PMFSH Medical History Lung nodule Pleural effusion Pulmonary hypertension Mitral annular calcification Aortic valve calcification Cough Sinusitis Chronic respiratory failure COPD (chronic obstructive pulmonary disease) Pneumonia Family History Brother Myocardial infarction Father Stroke Surgical History No pertinent past surgical history Social History Household Members: Children Household Members Other:: Daughter and family Housing: House Do you presently have visiting nurse or other home services: Yes (meals on wheels) Alcohol intake: never Patient Tobacco Use Status: Never used Tobacco Tobacco use type: Cigarette e-Cigarette/Vaping Use: Never Used Second Hand Smoke Exposure: No Advance Directives: Yes Advance Directives on File: Yes Advance Directives Date on File: 06/21/23 service: No Current occupational status: retired [employer] Allergies Allergy/AdvReac Type Severity Reaction Status Date / Time No Known Allergies Allergy Verified 06/15/23 14:18 Active Medications: Current Medications Acetaminophen (Acetaminophen 325 Mg Tablet) 650 mg PO Q6H PRN PRN Reason: Pain, Mild (Pain Scale 1-3) Last Admin: 08/26/23 21:03 Dose: 650 mg Diltiazem HCl 125 mg/ Sodium (Chloride) 125 mls @ 0 mls/hr IVCONT .Q0M SHALA; Protocol Home Medications Medication Instructions Recorded Confirmed Last Taken Type albuterol sulfate 2.5 mg/3 mL 2.5 mg inhalation Q4-6H PRN 03/07/21 08/26/23 08/26/23 History (0.083 %) solution for nebulization Wheezing famotidine 20 mg tablet 20 mg PO DAILY@0800 03/07/21 08/26/23 08/26/23 History pravastatin 40 mg tablet 40 mg PO DAILY@0800 03/07/21 08/26/23 08/26/23 History turmeric root extract 500 mg 500 mg PO DAILY@0800 09/19/21 08/26/23 08/26/23 History capsule Oxygen Home Use 09/22/22 06/15/23 Unknown History nebulizers 09/22/22 06/15/23 Unknown History alprazolam 0.25 mg tablet 0.25 mg PO DAILY PRN Anxiety 08/26/23 08/26/23 08/26/23 History apixaban 5 mg tablet (Eliquis) 5 mg PO BID 08/26/23 08/26/23 08/26/23 History citalopram 20 mg tablet 40 mg PO DAILY 08/26/23 08/26/23 08/26/23 History diltiazem HCl 180 mg 360 mg PO DAILY 08/26/23 08/26/23 08/26/23 History capsule,extended release 24 hr fluticasone propionate 50 50 mcg intranasal DAILY PRN 08/26/23 08/26/23 08/26/23 History mcg/actuation nasal allergies spray,suspension (Flonase Allergy Relief) furosemide 40 mg tablet 40 mg PO BID 08/26/23 08/26/23 08/26/23 History gabapentin 300 mg capsule 300 mg PO BEDTIME 08/26/23 08/26/23 08/25/23 History ibuprofen 800 mg tablet 800 mg PO TID PRN Pain 08/26/23 08/26/23 08/26/23 History penicillin V potassium 500 mg 500 mg PO Q6H 08/26/23 08/26/23 08/26/23 History tablet ropinirole 0.25 mg tablet 0.25 mg PO BID 08/26/23 08/26/23 08/26/23 History Physical Exam 2 Vital Signs and Narrative: Vital Signs: Last Vital Signs Temp 98.4 F 08/26/23 19:45 Pulse 120 H 08/26/23 21:17 Resp 22 H 08/26/23 21:17 BP 123/43 L 08/26/23 20:48 Pulse Ox 94 08/26/23 21:17 O2 Del Method Oxymask 08/26/23 21:17 O2 Flow Rate 6 08/26/23 21:17 Oxygen Flow Rate 4 08/26/23 17:53 BMI result Body Mass Index 32.1 Constitutional: Alert, in no acute distress. Mental Status: Oriented to person, place and time. Eyes: Pupils are equal, round, and reactive to light. Ear, Nose, and Throat: Oropharynx clear, mucous membranes moist. Ears and nose without deformities. Trachea midline. Respiratory: Lung sounds diminished with diffuse rhonchi, especially on the right. Not in respiratory distress. Capable of speaking in full sentences. Cardiovascular: Irregularly irregular rhythm, tachy. Gastrointestinal: Abdomen soft, non-tender, non-distended. Normal bowel sounds. Neurologic: Cranial nerves II-XII are grossly intact bilaterally. No focal neurological deficits. Moves all extremities spontaneously. Skin: Warm, dry. Musculoskeletal: No cyanosis or clubbing. Extremities: Trace bilateral edema. Psychiatric: Normal mood and affect. Results Labs 08/26/23 18:09 08/26/23 18:09 Labs: Laboratory Results - last 24 hr 08/26/23 08/26/23 18:09 18:31 MCV 86.1 MCH 25.7 L MCHC 29.8 L RDW 19.4 H Plt Count 342 MPV 10.0 Immature Gran % (Auto) 0.6 H Neut % (Auto) 84.6 H Lymph % (Auto) 5.1 L [place] % (Auto) 8.7 Eos % (Auto) 0.6 Baso % (Auto) 0.4 Lymph # (Auto) 0.8 L [place] # (Auto) 1.4 H Eos # (Auto) 0.1 Baso # (Auto) 0.1 Abs Immat Gran (auto) 0.10 H Absolute Neuts (auto) 13.2 H Absolute Nucleated RBC 0.000 Nucleated RBC % (auto) 0.0 PT 19.5 H INR 1.6 H Anion Gap 12 Estim Creat Clear Calc 64.9 Estimated GFR > 60 Random Glucose 142 H Lactic Acid 1.1 Calcium 9.2 Magnesium 1.7 Total Bilirubin 0.3 Direct Bilirubin 0.2 AST 14 ALT 9 Alkaline Phosphatase 89 Troponin I High Sens 12.5 B-Natriuretic Peptide 343 H Total Protein 7.7 Albumin 3.6 Influenza Type A (PCR) NEGATIVE Influenza Type B (PCR) NEGATIVE RSV RNA Qual (PCR) NEGATIVE SARS-CoV-2 RNA (RT-PCR) NEGATIVE Imaging Radiologist's Impressions: Impressions Chest X-Ray 08/26/23 18:01 IMPRESSION: Subsegmental atelectasis at the right lung base. Small left pleural effusion. Assessment and Plan (1) Chronic respiratory failure: Qualifiers: Respiratory failure complication: hypoxia Qualified Code(s): J96.11 - Chronic respiratory failure with hypoxia Status: Acute (2) COPD exacerbation: Status: Acute (3) Atrial fibrillation with RVR: Status: Acute Plan Pt is an 82-year-old female with a PMH significant for?chronic hypoxemic respiratory failure, COPD on chronic 2 L home O2, paroxysmal AFib on Eliquis, HTN, HLD, venous insufficiency with chronic lower leg edema, and anxiety who presents to the ED with?increasing shortness of breath, difficulty breathing, and chest pain for the past 2-3 days. Pt will be admitted to the hospital for treatment further evaluation of acute on chronic hypoxic respiratory failure in the setting of COPD exacerbation with sepsis and AFib with RVR. Acute on chronic respiratory failure in the setting of acute COPD exacerbation with sepsis Patient with increasing SOB, PRADO, productive cough, satting at 48% on 4 L NC Meets sepsis criteria: Tachycardia, tachypnea, leukocytosis; lactic acid WNL at 1.1 Patient given DuoNebs, IV steroids, Mag sulfate, and started on broad-spectrum antibiotics in the ED Will treat with azithromycin, started 08/26/2023 Will treat with Xopenex, Solu-Medrol, guaifenesin Titrate supplemental O2>90, wean as tolerated Monitor respiratory status AFib with RVR Patient with paroxysmal AFib, initially NSR in ED, then went into AFib with RVR Patient given diltiazem 10 mg IV x2 doses in the ED Started on low-dose diltiazem drip Continue Eliquis Monitor on telemetry Chest pain/pressure with EKG changes Complains of central, non-radiating chest pressure most of the day yesterday, better today Initial troponin 12.5 with repeat 24.2 Patient on Eliquis Repeat EKG with new ST elevations in anterior and lateral leads Will repeat troponin in the morning Cardiology consult Monitor on telemetry Hypokalemia Patient's potassium slightly low at 3.1 Will give potassium 40 mEq p.o. Follow potassium HLD Continue statin Chronic LLE Continue home Lasix Restless legs/peripheral neuropathy Continue gabapentin, ropinirole GERD Continue PPI Full Code Attending:?Dr. Christian DVT Prophylaxis: On Eliquis Pt will require a hospitalization of at least two nights for treatment of?acute on chronic respiratory failure in the setting of COVID with sepsis and AFib with RVR. Given patient's severe hypoxemia of 48% as well as significant comorbidities, and patient will need hospitalization for the administration of breathing treatments, IV steroids, increased supplemental oxygen, IV steroids, IV antibiotics, and heparin drip, as well as close respiratory and cardiac monitoring, and specialist consultation. Quality Stroke Does the patient have a stroke diagnosis?: No VTE Prior VTE?: No VTE Risk Level:: Medical - moderate - high VTE Device Contraindication: Treatment Not Indicated VTE Drug Contraindication: N/A - Med Ordered
[2023-08-26] MEDS: Gabapentin 300 MG CAPSULE PO (22:32)
[2023-08-26] MEDS: Furosemide 40 MG TABLET PO (22:32)
[2023-08-26] MEDS: rOPINIRole HCL 0.25 MG TABLET PO (22:32)
[2023-08-26] MEDS: Potassium Chloride Packet 20 MEQ PACKET 40 MEQ PO (22:32)
[2023-08-26] MEDS: Apixaban 5 MG TABLET PO (22:32)
[2023-08-26] MEDS: dilTIAZem HCL 125 MG in 0.9 % Sodium Chloride 100 ML IVCONT (22:34)
[2023-08-26] MEDS: guaiFENesin DM 200/20/10 ML 10 ML SYRUP PO (22:38)
--- NOTE | 2023-08-26 22:40 | PC.NURSE ---
at bedside, verbal order to start diltizem drip at 5mg/hr at this time to maintain heart rate in the 80-90s.
[2023-08-26 22:44] LABS: Troponin-I High Sensitivity 24.2 ng/L (<3.5-17.0)
[2023-08-26] MEDS: Azithromycin 500 MG in 0.9 % Sodium Chloride 250 ML 125 MG IV (23:25)
[2023-08-27] VITALS (14 sets, daily range): BP systolic 89–173; BP diastolic 36–72; PULSE 66–96; RESP 15–32; TEMP 36.4–37.3; O2SAT 90–99; BMI 34.7
[2023-08-27] MEDS: dilTIAZem HCL 30 MG TABLET PO (00:31)
--- NOTE | 2023-08-27 00:33 | PC.NURSE ---
per order, diltiazem discontinued, pt given po medication, tolerated well with water.
--- NOTE | 2023-08-27 04:47 | PC.NURSE ---
pt blood pressure noted to be 91/36, aware.
[2023-08-27] MEDS: 0.9 % Sodium Chloride 500 ML 250 ML IV (04:51)
[2023-08-27 05:36] LABS: Hematocrit 28.4 % (37.0-47.0); Hemoglobin 8.4 g/dl (12.0-16.0); Mean Corpuscular HGB Conc 29.6 g/dl (31.0-35.0); Mean Corpuscular Hemoglobin 25.5 pg (27.0-33.0); Mean Corpuscular Volume 86.3 fL (80.0-98.0); Mean Platelet Volume 10.5 fL (9.4-12.3); Platelet Count 324 X10*3/uL (160-400); Red Blood Count 3.29 X10*6/uL (4.20-5.50); Red Cell Distribution Width 19.3 % (11.0-16.0); White Blood Count 14.6 X10*3/uL (4.8-10.8)
[2023-08-27 06:01] LABS: Anion Gap 14 (12-20); Blood Urea Nitrogen 14 mg/dL (9-16); Calcium 8.6 mg/dL (8.4-10.2); Carbon Dioxide 31 mmol/L (22-29); Chloride 96 mmol/L (96-108); Creatinine Clr Calc Pharmacy 49.6; Estimated Glomerular Filt Rate > 60; Glucose Random 239 mg/dL (60-115); Potassium 3.5 mmol/L (3.3-5.1); Sodium 137 mmol/L (135-145)
[2023-08-27] MEDS: methylPREDNISolone Sod Succ 40 MG/ML VIAL IVPUSH (06:07)
--- NOTE | 2023-08-27 06:12 | PC.NURSE ---
due to pt blood pressure, provider holding morning dose of diltiazem.
--- NOTE | 2023-08-27 07:00 | CA_ITS ---
Transthoracic Echocardiogram Patient (Last, First, Middle): Tanya Joya, Gender: Female Date of : 1940 Age: 82 Procedure Date: 08/27/2023 Procedure Type: Transthoracic Echocardiogram Location: ER Height: 154.94 cm Weight: 77.11 kg BSA: 1.76 m2 Heart Rate: 86 bpm BP: 114 / 36 mmHg Loading Unit Operator Crimping: Referring MD: Juan Ledezma DO Item Repair Manager: Marek Deluna MD Symptoms: abn ECG Study Quality: Adequate w contrast ECG Rhythm: Sinus Conclusions: - 1. Normal LV ejection fraction of 65-70% with mild LVH with grade 2 diastolic dysfunction 2. Moderately dilated right ventricle with normal systolic function 3. Moderately dilated left atrium 4. Elevated velocities across aortic valve could represent early aortic stenosis 5. Moderately elevated right ventricular systolic pressure 6. No gross pericardial effusion Findings Procedure Information Contrast agent, definity, is being given per protocol without apparent complications. Left Ventricle Normal left ventricular size and systolic function. There is mildly increased left ventricular wall thickness. The visually estimated ejection fraction is between 65-70%. Spectral Doppler is indicative of a pseudonormal filling pattern. E/E prime ratio is >15, consistent with elevated filling pressures. Evidence suggests grade II (moderate) diastolic dysfunction. Right Ventricle Moderately increased right ventricular cavity size. There is normal right ventricular systolic function. Atria The left atrium is moderately dilated. Interatrial shunt cannot be excluded. The right atrium is likely dilated. Aortic Valve There is mild calcification of the aortic valve. There is mild thickening of the aortic valve. The peak aortic gradient is 21 mmHg.The mean gradient is 12 mmHg. There is no aortic valve regurgitation. Mitral Valve There is mild anterior and posterior mitral leaflet thickening. There is mild mitral annular calcification. There is trace mitral valve regurgitation. There is no mitral valve stenosis. Pulmonic Valve The pulmonic valve was not well visualized. Tricuspid Valve Likely normal tricuspid valve structure and function. There is mild to moderate tricuspid valve regurgitation. Mildly elevated right atrial pressure. Moderate pulmonary hypertension is present. Great Vessels The aorta was not well visualized. The pulmonary artery was not well visualized. There is no dilatation of the ascending aorta measuring 3.40 cm. Venous The inferior vena cava is moderately dilated and collapses less than 50% with inspiration. Pericardium/Pleural There is no evidence of pericardial effusion. Measurements 2D Linear Measurements IVSd: 1.22 0.6-0.9/0.6-1.0 cm LVIDd: 4.97 3.9-5.3/4.2-5.9 cm LVIDd Index: 2.82 2.4-3.2/2.2-3.1 cm/m2 LVIDs: 2.87 2.0-3.6 cm LVPWd: 1.20 0.7-1.1 cm LA Diam: 3.90 2.7-3.8/3.0-4.0 cm LAIDs Index: 2.22 1.5-2.3 cm/m2 LV Mass: 292.05 67-162/88-224 g LV Mass Index: 165.94 43-95/49-115 g/m2 LVOT Diam: 2.30 3.0+(-)1.3 cm Mitral Valve MV Pk E: 1.11 MV PK A: 0.86 MV Decel Time: 162.00 E/A: 1.30 E'Lateral: 7.07 E'Medial: 6.53 E/E' Med: 17.00 E/E' Lat: 15.70 PHT: 48.00 MVA PHT: 4.58 Decel [place]: 6.86 Aortic Valve AoV Pk Eladio: 2.27 AoV Mn Eladio: 1.64 AoV VTI: 0.50 AoV Pk Grad: 21.00 Aov Mn Grad: 12.00 JODIE Cont.VTI: 2.60 LVOT LVOT Pk Eladio: 1.49 LVOT Mn Eladio: 0.94 LVOT VTI: 0.32 LVOT Pk Grad: 9.00 LVOT Mn Grad: 4.00 LVOT Diam: 2.30 LVOT Area: 4.15 Diastolic Function MV Pk E: 1.11 MV Pk A: 0.86 E/A: 1.30 E'Medial: 6.53 E/E' Med: 17.00 E' Laterial: 7.07 E/E' Lat: 15.70 Right Ventricle TAPSE (mm): 33.40 TVS' Eladio: 16.10 Tricuspid Valve TR Pk Eladio: 3.24 TR Pk Grad: 42.00 RA Press: 8.00 RVSP: 50.00 Great Vessels Aorta Sinus of Valsalva: 3.20 2.0-3.5 cm Ao Asc: 3.40 2.1-3.4 cm Pulmonary Valve PV Pk Eladio: 1.55 Peak PV Grad: 10.00 Updated in Other Vendor System with Status of Final Marek Deluna MD electronically signed on 08/27/2023 11:24:32 AM with status of Final
[2023-08-27] MEDS: levalbuterol HCL 1.25 MG/3 ML VIAL.NEB INHALE ×4 (07:46→19:25)
[2023-08-27] MEDS: Fluticasone/Umeclidinium/Vilanterol 100/62.5/25 BLST.W.DEV 1 PUFF INHALE (07:54)
--- NOTE | 2023-08-27 08:57 | PC.NURSE ---
DR VILLA AT BEDSIDE, PT AWARE OF PLAN OF CARE.
--- NOTE | 2023-08-27 09:30 | PC.NURSE ---
PT IS A/O X 4 NO SOB/YANELI NOTED SPEAKS IN FULL SENTENCES. DUONEB TX DONE BY RT EARLIER. NO EDEMA NOTED. PT ADMITTED TO HOSP. WILL CONTINUE TO MONITOR.
[2023-08-27] MEDS: Apixaban 5 MG TABLET PO ×2 (09:54→20:47)
[2023-08-27] MEDS: Furosemide 40 MG TABLET PO ×2 (09:54→20:47)
[2023-08-27] MEDS: Montelukast Sodium 10 MG TABLET PO (09:54)
[2023-08-27] MEDS: Escitalopram Oxalate 20 MG TABLET PO (09:54)
[2023-08-27] MEDS: Pravastatin Sodium 40 MG TABLET PO (09:54)
[2023-08-27] MEDS: Famotidine 20 MG TABLET PO (09:55)
[2023-08-27] MEDS: rOPINIRole HCL 0.25 MG TABLET PO ×2 (09:55→20:47)
[2023-08-27] MEDS: 0.9 % Sodium Chloride Flush 3 ML SYRINGE IVFLUSH ×3 (09:56→23:41)
--- NOTE | 2023-08-27 10:18 | P.CONCA_ITS ---
History of Present Illness History of Present Illness Date of Service: 08/27/23 Requesting physician: Juan Ledezma Consult reason: chest pain and atrial fibrillation Chief complaint: COPD exacerbation, AFib w/RVR Narrative: I was consulted to see Tanya in cardiology consultation today for atrial fibrillation rapid ventricular response and chest pain. Patient with prior history of chronic hypoxemic respiratory failure on home oxygen 2 L for severe COPD, paroxysmal atrial fibrillation on Eliquis and Cardizem, hypertension, hyperlipidemia as well as anxiety. Patient present hospital with worsening shortness of breath over the last few days associated with cough productive of greenish phlegm and gradually getting worse. Yesterday she says going to the bathroom back in 4 she will get severely short of breath was not able to breathe. She subsequently developed chest pressure and felt like she was currently dye. She eventually ended up coming to the hospital was noted to have significant hypoxemia requiring high level of oxygen, minimally elevated troponin with slight rise respiratory distress and atrial fibrillation with rapid ventricular response. Patient present initially with sinus rhythm with subsequently converted his atrial fibrillation with ST depression. This morning she still has shortness of breath and wheezing but says her chest pressure and overall symptoms have improved. She was given rate control with IV Cardizem and her heart rate has improved into the 90s this morning. Oxygen saturations have improved. Her troponins went from 12-24. No repeats have been done as yet. Review of Systems 2 Constitutional: Constitutional: Denies body ache(s), Denies chills, Denies fever(s) and Reports weakness Eyes: Eyes: Reports no additional eye complaints Cardiovascular: Cardiovascular: Reports chest pain at rest, Reports rapid heart rate, Denies leg edema, Denies lightheadedness, Denies Loss of Consciousness, Reports dyspnea on exertion and Denies orthopnea Respiratory: Respiratory: Reports excessive phlegm production, Reports dyspnea on exertion and Reports wheezing Gastrointestinal: Gastrointestinal: Reports no additional gastrointestinal complaints Genitourinary: Genitourinary: Reports no additional female genitourinary complaints Musculoskeletal: Musculoskeletal: Reports no additional musculoskeletal complaints Neurologic: Reports system reviewed and no additional complaints, except as documented and Reports weakness Allergic/Immunologic: Allergic/Immunologic: Reports wheezing PMFSH Past Medical History Medical History Lung nodule Pleural effusion Pulmonary hypertension Mitral annular calcification Aortic valve calcification Cough Sinusitis Chronic respiratory failure COPD (chronic obstructive pulmonary disease) Pneumonia Family History Family History Brother Myocardial infarction Father Stroke Surgical History Surgical History No pertinent past surgical history Social History Social History Household Members: Children Household Members Other:: Daughter and family Housing: House Do you presently have visiting nurse or other home services: Yes (meals on wheels) Alcohol intake: never Patient Tobacco Use Status: Never used Tobacco Tobacco use type: Cigarette e-Cigarette/Vaping Use: Never Used Second Hand Smoke Exposure: No Advance Directives: Yes Advance Directives on File: Yes Advance Directives Date on File: 06/21/23 Nutrition Risks: No Nutritional Risk service: No Current occupational status: retired [employer] Allergies Allergy/AdvReac Type Severity Reaction Status Date / Time No Known Allergies Allergy Verified 06/15/23 14:18 Active Medications: Current Medications Acetaminophen (Acetaminophen 325 Mg Tablet) 650 mg PO Q6H PRN PRN Reason: Pain, Mild (Pain Scale 1-3) Last Admin: 08/26/23 21:03 Dose: 650 mg Alprazolam (Alprazolam 0.25 Mg Tablet) 0.25 mg PO DAILY PRN PRN Reason: Anxiety Apixaban (Apixaban 5 Mg Tablet) 5 mg PO BID [facility] Last Admin: 08/27/23 09:54 Dose: 5 mg Diltiazem HCl (Diltiazem Hcl Cd 180 Mg Cap.Er.24h) 360 mg PO DAILY [facility]; Protocol Docusate Sodium (Docusate Sodium 100 Mg Capsule) 100 mg PO DAILY PRN PRN Reason: Constipation Escitalopram Oxalate (Escitalopram Oxalate 20 Mg Tablet) 20 mg PO DAILY [facility] Last Admin: 08/27/23 09:54 Dose: 20 mg Famotidine (Famotidine 20 Mg Tablet) 20 mg PO DAILY@0800 [facility] Last Admin: 08/27/23 09:55 Dose: 20 mg Fluticasone Propionate (Fluticasone Propionate Nasal 16 Gm [place]) 1 spray NOSTRIL-B DAILY PRN PRN Reason: allergies Fluticasone/Umeclidinium/Vilanterol (Fluticasone/Umeclidinium/Vilanterol 100/62.5/25 Blst.W.Dev) 1 puff INHALE RDAILY [facility] Last Admin: 08/27/23 07:54 Dose: 1 puff Furosemide (Furosemide 40 Mg Tablet) 40 mg PO BID [facility]; Protocol Last Admin: 08/27/23 09:54 Dose: 40 mg Gabapentin (Gabapentin 300 Mg Capsule) 300 mg PO BEDTIME [facility] Last Admin: 08/26/23 22:32 Dose: 300 mg Guaifenesin/Dextromethorphan (Guaifenesin Dm 200/20/10 Ml 10 Ml Syrup) 10 ml PO Q4H PRN PRN Reason: Cough Last Admin: 08/26/23 22:38 Dose: 10 ml Azithromycin 500 mg/ Sodium (Chloride) 250 mls @ 125 mls/hr IV Q24H [facility] Last Infusion: 08/27/23 01:25 Dose: Infused Levalbuterol HCl (Levalbuterol Hcl 1.25 Mg/3 Ml Vial.Neb) 1.25 mg INHALE RQ4H WHILE AWAKE [facility] Last Admin: 08/27/23 07:46 Dose: 1.25 mg Melatonin (Melatonin 3 Mg Tablet) 6 mg PO BEDTIME PRN PRN Reason: Insomnia Methylprednisolone Sodium Succinate (Methylprednisolone Sod Succ 40 Mg/Ml Vial) 40 mg IVPUSH Q12H [facility] Last Admin: 08/27/23 06:07 Dose: 40 mg Montelukast Sodium (Montelukast Sodium 10 Mg Tablet) 10 mg PO DAILY [facility] Last Admin: 08/27/23 09:54 Dose: 10 mg Pravastatin Sodium (Pravastatin Sodium 40 Mg Tablet) 40 mg PO DAILY@0800 [facility] Last Admin: 08/27/23 09:54 Dose: 40 mg Ropinirole HCl (Ropinirole Hcl 0.25 Mg Tablet) 0.25 mg PO BID [facility] Last Admin: 08/27/23 09:55 Dose: 0.25 mg Sodium Chloride (0.9 % Sodium Chloride Flush 3 Ml Syringe) 3 ml IVFLUSH QSHIFT [facility] Last Admin: 08/27/23 09:56 Dose: 3 ml Home Medications Medication Instructions Recorded Confirmed Last Taken Type albuterol sulfate 2.5 mg/3 mL 2.5 mg inhalation Q4-6H PRN 03/07/21 08/26/23 08/26/23 History (0.083 %) solution for nebulization Wheezing famotidine 20 mg tablet 20 mg PO DAILY@0800 03/07/21 08/26/23 08/26/23 History pravastatin 40 mg tablet 40 mg PO DAILY@0800 03/07/21 08/26/23 08/26/23 History turmeric root extract 500 mg 500 mg PO DAILY@0800 09/19/21 08/26/23 08/26/23 History capsule Oxygen Home Use 09/22/22 06/15/23 Unknown History nebulizers 09/22/22 06/15/23 Unknown History alprazolam 0.25 mg tablet 0.25 mg PO DAILY PRN Anxiety 08/26/23 08/26/23 08/26/23 History apixaban 5 mg tablet (Eliquis) 5 mg PO BID 08/26/23 08/26/23 08/26/23 History citalopram 20 mg tablet 40 mg PO DAILY 08/26/23 08/26/23 08/26/23 History diltiazem HCl 180 mg 360 mg PO DAILY 08/26/23 08/26/23 08/26/23 History capsule,extended release 24 hr fluticasone propionate 50 50 mcg intranasal DAILY PRN 08/26/23 08/26/23 08/26/23 History mcg/actuation nasal allergies spray,suspension (Flonase Allergy Relief) furosemide 40 mg tablet 40 mg PO BID 08/26/23 08/26/23 08/26/23 History gabapentin 300 mg capsule 300 mg PO BEDTIME 08/26/23 08/26/23 08/25/23 History ibuprofen 800 mg tablet 800 mg PO TID PRN Pain 08/26/23 08/26/23 08/26/23 History penicillin V potassium 500 mg 500 mg PO Q6H 08/26/23 08/26/23 08/26/23 History tablet ropinirole 0.25 mg tablet 0.25 mg PO BID 08/26/23 08/26/23 08/26/23 History Physical Exam 2 Vital Signs: Vital Signs: Last Vital Signs Temp 97.9 F 08/27/23 09:52 Pulse 85 08/27/23 09:52 Resp 32 H 08/27/23 09:52 BP 119/39 L 08/27/23 09:52 Pulse Ox 94 08/27/23 09:52 O2 Del Method Oxymask 08/27/23 09:52 O2 Flow Rate 5 08/27/23 09:52 Oxygen Flow Rate 4 08/26/23 17:53 BMI result Body Mass Index 32.1 Const: General: cooperative, alert, awake and in distress mild and respiratory Nutritional Appearance: obese Orientation/consciousness: patient oriented x3 HEENT: Head: Yes normocephalic and Yes atraumatic Neck: Neck: Yes trachea midline, Yes supple and Yes no JVD Resp: Effort & Inspection: normal respiratory effort Auscultation: wheezes scattered wheezes and diminished lung sounds Cardio: Jugular venous distension: no JVD Rhythm: abnormal rhythm irregularly irregular Heart sounds: S1 normal heart sound present, S2 normal heart sound present, no click, no gallops, no murmurs and no rubs GI: Auscultation: normal bowel sounds Skin: General skin exam: no rashes or lesions noted Neuro: General: patient oriented x3 and no focal motor deficits Extrem: General: Yes no clubbing, cyanosis or edema Objective Labs and Meds 08/27/23 05:02 08/27/23 05:02 Lab results: Laboratory Results - last 24 hr 08/26/23 08/26/23 08/26/23 18:09 18:31 22:12 WBC 15.6 H RBC 3.74 L Hgb 9.6 L Hct 32.2 L MCV 86.1 MCH 25.7 L MCHC 29.8 L RDW 19.4 H Plt Count 342 MPV 10.0 Immature Gran % (Auto) 0.6 H Neut % (Auto) 84.6 H Lymph % (Auto) 5.1 L Ritchie % (Auto) 8.7 Eos % (Auto) 0.6 Baso % (Auto) 0.4 Lymph # (Auto) 0.8 L [place] # (Auto) 1.4 H Eos # (Auto) 0.1 Baso # (Auto) 0.1 Abs Immat Gran (auto) 0.10 H Absolute Neuts (auto) 13.2 H Absolute Nucleated RBC 0.000 Nucleated RBC % (auto) 0.0 PT 19.5 H INR 1.6 H Sodium 139 Potassium 3.1 L Chloride 96 Carbon Dioxide 34 H Anion Gap 12 BUN 10 Creatinine 0.65 Estim Creat Clear Calc 64.9 Estimated GFR > 60 Random Glucose 142 H Lactic Acid 1.1 Calcium 9.2 Magnesium 1.7 Total Bilirubin 0.3 Direct Bilirubin 0.2 AST 14 ALT 9 Alkaline Phosphatase 89 Troponin I High Sens 12.5 24.2 H D B-Natriuretic Peptide 343 H Total Protein 7.7 Albumin 3.6 Influenza Type A (PCR) NEGATIVE Influenza Type B (PCR) NEGATIVE RSV RNA Qual (PCR) NEGATIVE SARS-CoV-2 RNA (RT-PCR) NEGATIVE 08/27/23 05:02 WBC 14.6 H RBC 3.29 L Hgb 8.4 L Hct 28.4 L MCV 86.3 MCH 25.5 L MCHC 29.6 L RDW 19.3 H Plt Count 324 MPV 10.5 Immature Gran % (Auto) Neut % (Auto) Lymph % (Auto) Ritchie % (Auto) Eos % (Auto) Baso % (Auto) Lymph # (Auto) Ritchie # (Auto) Eos # (Auto) Baso # (Auto) Abs Immat Gran (auto) Absolute Neuts (auto) Absolute Nucleated RBC 0.000 Nucleated RBC % (auto) 0.0 PT INR Sodium 137 Potassium 3.5 Chloride 96 Carbon Dioxide 31 H Anion Gap 14 BUN 14 Creatinine 0.85 Estim Creat Clear Calc 49.6 Estimated GFR > 60 Random Glucose 239 H Lactic Acid Calcium 8.6 D Magnesium Total Bilirubin Direct Bilirubin AST ALT Alkaline Phosphatase Troponin I High Sens B-Natriuretic Peptide Total Protein Albumin Influenza Type A (PCR) Influenza Type B (PCR) RSV RNA Qual (PCR) SARS-CoV-2 RNA (RT-PCR) EKG shows atrial fibrillation with diffuse ST T wave changes Imaging Radiologist's impression: Impressions Chest X-Ray 08/26/23 18:01 IMPRESSION: Subsegmental atelectasis at the right lung base. Small left pleural effusion. Assessment and Plan (1) Acute and chronic respiratory failure with hypoxia: Status: Acute Acute respiratory failure in setting of chronic respiratory failure related to COPD exacerbation with persistent severe diffuse wheezing causing her hospitalization. I do not see any evidence of congestive heart failure. Elevated BNP is most likely related to RV strain and acute cor pulmonale. Agree with echocardiogram once patient is more stable. Continue aggressive treatment for her respiratory failure and consider pulmonary consultation. I would avoid any diuretic regimen at this point in time. (2) Atrial fibrillation with rapid ventricular response: Status: Acute Atrial fibrillation rapid ventricular response related to acute pulmonary exacerbation. Heart rate is improved with medical therapy with IV Cardizem. Can switch to p.o. Cardizem her usual dose. Continue full oral anticoagulation with Eliquis. Would avoid rhythm control at this point time till she is stable. If rate remains difficult control consider addition of digoxin therapy. (3) Chest pain: Status: Acute Her severe chest pain syndrome is suggestive of anginal equivalent although cause by her severe hypoxemia as well as atrial fibrillation rapid ventricular response. There is high likelihood of underlying coronary artery disease. This will be worked up as an outpatient once patient is more stable from pulmonary perspective. Elevated troponins also related to hypoxemia. Will continue to follow with you. Thank you for allowing me to partake in her care Procedures Date of Service Date of Service: 08/27/23
--- NOTE | 2023-08-27 11:20 | PC.NURSE ---
PT HAD AN ECHOCARDIOGRAM DONE AT BEDSIDE EARLIER, TOLERATED WELL.
[2023-08-27] MEDS: Acetaminophen 325 MG TABLET 650 MG PO ×2 (14:07→23:49)
--- NOTE | 2023-08-27 14:07 | PC.NURSE ---
PT HAS BEEN PRODUCING YELLOW SPUTUM. REQUEST COUGH MED. COUGH MED NOT AVAILABLE AT THIS TIME, WILL CALL THE PHARMACY
--- NOTE | 2023-08-27 16:13 | HO.PM.IMPN ---
Subjective Subjective Date of Service: 08/27/23 Interval History: Breathing essentially unchanged from admission. No acute complaints Review of Systems Denies chest pain Denies shortness of breath Denies nausea vomiting diarrhea Denies fever chills Physical Exam Vital Signs: Vital Signs: Last Vital Signs Temp 98.0 F 08/27/23 12:06 Pulse 91 08/27/23 15:07 Resp 27 H 08/27/23 15:07 BP 131/56 L 08/27/23 12:06 Pulse Ox 94 08/27/23 12:06 O2 Del Method Nasal Cannula 08/27/23 12:06 O2 Flow Rate 4 08/27/23 12:06 Oxygen Flow Rate 4 08/26/23 17:53 BMI result Body Mass Index 32.1 Const: Other: Awake alert no acute distress Resp: Other: Diminished throughout with scattered expiratory wheezes Cardio: Other: No S4; positive S1-S2; no S3 murmurs rubs or gallops GI: Other: Soft nontender nondistended normoactive bowel sounds Extrem: Other: No edema bilaterally Objective Data Active Medications Acetaminophen (Acetaminophen 325 Mg Tablet) 650 mg PO Q6H PRN PRN Reason: Pain, Mild (Pain Scale 1-3) Last Admin: 08/27/23 14:07 Dose: 650 mg Documented By: TETE Alprazolam (Alprazolam 0.25 Mg Tablet) 0.25 mg PO DAILY PRN PRN Reason: Anxiety Apixaban (Apixaban 5 Mg Tablet) 5 mg PO BID [facility] Last Admin: 08/27/23 09:54 Dose: 5 mg Documented By: TETE Diltiazem HCl (Diltiazem Hcl Cd 180 Mg Cap.Er.24h) 360 mg PO DAILY [facility]; Protocol Docusate Sodium (Docusate Sodium 100 Mg Capsule) 100 mg PO DAILY PRN PRN Reason: Constipation Escitalopram Oxalate (Escitalopram Oxalate 20 Mg Tablet) 20 mg PO DAILY [facility] Last Admin: 08/27/23 09:54 Dose: 20 mg Documented By: TETE Famotidine (Famotidine 20 Mg Tablet) 20 mg PO DAILY@0800 [facility] Last Admin: 08/27/23 09:55 Dose: 20 mg Documented By: TETE Fluticasone Propionate (Fluticasone Propionate Nasal 16 Gm [place]) 1 spray NOSTRIL-B DAILY PRN PRN Reason: allergies Fluticasone/Umeclidinium/Vilanterol (Fluticasone/Umeclidinium/Vilanterol 100/62.5/25 Blst.W.Dev) 1 puff INHALE RDAILY [facility] Last Admin: 08/27/23 07:54 Dose: 1 puff Documented By: YARA Furosemide (Furosemide 40 Mg Tablet) 40 mg PO BID [facility]; Protocol Last Admin: 08/27/23 09:54 Dose: 40 mg Documented By: TETE Gabapentin (Gabapentin 300 Mg Capsule) 300 mg PO BEDTIME [facility] Last Admin: 08/26/23 22:32 Dose: 300 mg Documented By: TONY Guaifenesin/Dextromethorphan (Guaifenesin Dm 200/20/10 Ml 10 Ml Syrup) 10 ml PO Q4H PRN PRN Reason: Cough Last Admin: 08/26/23 22:38 Dose: 10 ml Documented By: TONY Azithromycin 500 mg/ Sodium (Chloride) 250 mls @ 125 mls/hr IV Q24H [facility] Last Infusion: 08/27/23 01:25 Dose: Infused Documented By: TONY Levalbuterol HCl (Levalbuterol Hcl 1.25 Mg/3 Ml Vial.Neb) 1.25 mg INHALE RQ4H WHILE AWAKE [facility] Last Admin: 08/27/23 15:06 Dose: 1.25 mg Documented By: YARA Melatonin (Melatonin 3 Mg Tablet) 6 mg PO BEDTIME PRN PRN Reason: Insomnia Methylprednisolone Sodium Succinate (Methylprednisolone Sod Succ 40 Mg/Ml Vial) 40 mg IVPUSH Q12H [facility] Last Admin: 08/27/23 06:07 Dose: 40 mg Documented By: TONY Montelukast Sodium (Montelukast Sodium 10 Mg Tablet) 10 mg PO DAILY [facility] Last Admin: 08/27/23 09:54 Dose: 10 mg Documented By: TETE Oxycodone HCl (Oxycodone Hcl Immed Release 5 Mg Tablet) 5 mg PO Q4H PRN PRN Reason: Pain, Moderate(Pain Scale 4-6) Pravastatin Sodium (Pravastatin Sodium 40 Mg Tablet) 40 mg PO DAILY@0800 [facility] Last Admin: 08/27/23 09:54 Dose: 40 mg Documented By: TETE Ropinirole HCl (Ropinirole Hcl 0.25 Mg Tablet) 0.25 mg PO BID [facility] Last Admin: 08/27/23 09:55 Dose: 0.25 mg Documented By: TETE Sodium Chloride (0.9 % Sodium Chloride Flush 3 Ml Syringe) 3 ml IVFLUSH QSHIFT [facility] Last Admin: 08/27/23 09:56 Dose: 3 ml Documented By: TETE Labs 08/27/23 05:02 08/27/23 05:02 Labs: Laboratory Results - last 24 hr 08/26/23 08/26/23 08/26/23 18:09 18:31 22:12 MCV 86.1 MCH 25.7 L MCHC 29.8 L RDW 19.4 H Plt Count 342 MPV 10.0 Immature Gran % (Auto) 0.6 H Neut % (Auto) 84.6 H Lymph % (Auto) 5.1 L [place] % (Auto) 8.7 Eos % (Auto) 0.6 Baso % (Auto) 0.4 Lymph # (Auto) 0.8 L [place] # (Auto) 1.4 H Eos # (Auto) 0.1 Baso # (Auto) 0.1 Abs Immat Gran (auto) 0.10 H Absolute Neuts (auto) 13.2 H Absolute Nucleated RBC 0.000 Nucleated RBC % (auto) 0.0 PT 19.5 H INR 1.6 H Anion Gap 12 Estim Creat Clear Calc 64.9 Estimated GFR > 60 Random Glucose 142 H Lactic Acid 1.1 Calcium 9.2 Magnesium 1.7 Total Bilirubin 0.3 Direct Bilirubin 0.2 AST 14 ALT 9 Alkaline Phosphatase 89 Troponin I High Sens 12.5 24.2 H D B-Natriuretic Peptide 343 H Total Protein 7.7 Albumin 3.6 Influenza Type A (PCR) NEGATIVE Influenza Type B (PCR) NEGATIVE RSV RNA Qual (PCR) NEGATIVE SARS-CoV-2 RNA (RT-PCR) NEGATIVE 08/27/23 05:02 MCV 86.3 MCH 25.5 L MCHC 29.6 L RDW 19.3 H Plt Count 324 MPV 10.5 Immature Gran % (Auto) Neut % (Auto) Lymph % (Auto) [place] % (Auto) Eos % (Auto) Baso % (Auto) Lymph # (Auto) [place] # (Auto) Eos # (Auto) Baso # (Auto) Abs Immat Gran (auto) Absolute Neuts (auto) Absolute Nucleated RBC 0.000 Nucleated RBC % (auto) 0.0 PT INR Anion Gap 14 Estim Creat Clear Calc 49.6 Estimated GFR > 60 Random Glucose 239 H Lactic Acid Calcium 8.6 D Magnesium Total Bilirubin Direct Bilirubin AST ALT Alkaline Phosphatase Troponin I High Sens B-Natriuretic Peptide Total Protein Albumin Influenza Type A (PCR) Influenza Type B (PCR) RSV RNA Qual (PCR) SARS-CoV-2 RNA (RT-PCR) Assessment and Plan (1) Acute and chronic respiratory failure with hypoxia: Status: Acute (2) COPD exacerbation: Status: Acute (3) Atrial fibrillation with rapid ventricular response: Status: Acute Plan Pt is an 82-year-old female with a PMH significant for?chronic hypoxemic respiratory failure, COPD on chronic 2 L home O2, paroxysmal AFib on Eliquis, HTN, HLD, venous insufficiency with chronic lower leg edema, and anxiety who presents to the ED with?increasing shortness of breath, difficulty breathing, and chest pain for the past 2-3 days. Pt will be admitted to the hospital for treatment further evaluation of acute on chronic hypoxic respiratory failure in the setting of COPD exacerbation with sepsis and AFib with RVR. 1.Acute on chronic respiratory failure/acute COPD exacerbation with sepsis -ceftriaxone/azithromycin (2) -pulse dose methylprednisolone 60 mg IV q.6 -DuoNebs q.4 hours p.r.n. while awake -titrate O2 to maintain sats greater than or equal to 92% 2.AFib with RVR -acceptable control on current therapy -continue Eliquis as ordered -adjust therapies as clinically indicated 3.Chest pain/pressure with EKG changes -appreciate cardiology input -treat comorbidities and follow Full code Eliquis Patient will require ongoing hospitalization to treat COPD exacerbation with IV steroids and antibiotics. Ongoing specialist consultation Quality Stroke Does the patient have a stroke diagnosis?: No VTE Prior VTE?: No VTE Risk Level:: Medical - moderate - high VTE Device Contraindication: Treatment Not Indicated VTE Drug Contraindication: N/A - Med Ordered
[2023-08-27] MEDS: methylPREDNISolone Sod Succ 125 MG/2 ML VIAL 60 MG IVPUSH ×2 (18:21→23:40)
[2023-08-27 18:36] LABS: Troponin-I High Sensitivity 17.2 ng/L (<3.5-17.0)
[2023-08-27] MEDS: Gabapentin 300 MG CAPSULE PO (20:47)
[2023-08-27] MEDS: Azithromycin 500 MG in 0.9 % Sodium Chloride 250 ML 125 MG IV (23:40)
[2023-08-27] MEDS: guaiFENesin DM 200/20/10 ML 10 ML SYRUP PO (23:49)
[2023-08-27] MEDS: ALPRAZolam 0.25 MG TABLET PO (23:49)
[2023-08-28] VITALS (9 sets, daily range): BP systolic 118–163; BP diastolic 57–74; PULSE 83–91; RESP 16–20; TEMP 35.7–36.7; O2SAT 93–100
[2023-08-28] MEDS: methylPREDNISolone Sod Succ 125 MG/2 ML VIAL 60 MG IVPUSH ×4 (05:25→21:36)
[2023-08-28] MEDS: guaiFENesin DM 200/20/10 ML 10 ML SYRUP PO ×2 (05:25→21:48)
[2023-08-28 07:04] LABS: Hematocrit 27.5 % (37.0-47.0); Hemoglobin 8.3 g/dl (12.0-16.0); Mean Corpuscular HGB Conc 30.2 g/dl (31.0-35.0); Mean Corpuscular Hemoglobin 25.9 pg (27.0-33.0); Mean Corpuscular Volume 85.9 fL (80.0-98.0); Mean Platelet Volume 10.6 fL (9.4-12.3); Platelet Count 342 X10*3/uL (160-400); Red Cell Distribution Width 19.1 % (11.0-16.0); White Blood Count 14.1 X10*3/uL (4.8-10.8)
[2023-08-28 07:11] LABS: Anion Gap 12 (12-20); Blood Urea Nitrogen 19 mg/dL (9-16); Calcium 8.7 mg/dL (8.4-10.2); Carbon Dioxide 34 mmol/L (22-29); Chloride 98 mmol/L (96-108); Creatinine Clr Calc Pharmacy 61.8; Estimated Glomerular Filt Rate > 60; Glucose Random 195 mg/dL (60-115); Potassium 3.7 mmol/L (3.3-5.1); Sodium 140 mmol/L (135-145)
[2023-08-28] MEDS: Fluticasone/Umeclidinium/Vilanterol 100/62.5/25 BLST.W.DEV 1 PUFF INHALE (08:10)
[2023-08-28] MEDS: levalbuterol HCL 1.25 MG/3 ML VIAL.NEB INHALE ×4 (08:12→20:13)
[2023-08-28] MEDS: dilTIAZem HCL CD 180 MG CAP.ER.24H 360 MG PO (09:48)
[2023-08-28] MEDS: Escitalopram Oxalate 20 MG TABLET PO (09:49)
[2023-08-28] MEDS: Furosemide 40 MG TABLET PO ×2 (09:49→21:36)
[2023-08-28] MEDS: Pravastatin Sodium 40 MG TABLET PO (09:49)
[2023-08-28] MEDS: Apixaban 5 MG TABLET PO ×2 (09:49→21:36)
[2023-08-28] MEDS: rOPINIRole HCL 0.25 MG TABLET PO ×2 (09:49→21:36)
[2023-08-28] MEDS: Famotidine 20 MG TABLET PO (09:49)
[2023-08-28] MEDS: Montelukast Sodium 10 MG TABLET PO (09:49)
[2023-08-28] MEDS: 0.9 % Sodium Chloride Flush 3 ML SYRINGE IVFLUSH ×3 (09:50→21:37)
--- NOTE | 2023-08-28 11:08 | PM.PNCARD ---
Subjective Subjective Date of Service: 08/28/23 Principal diagnosis: COPD exacerbation, hypoxic respiratory failure, PAF Interval history: Patient converted to sinus rhythm overnight. Remains in sinus rhythm. Continues to have significant phlegm with productive sputum as well as shortness of breath walking to the bathroom. No cardiac symptoms to report. No chest pain. Oxygen levels are well controlled. Review of Systems Constitutional: Reports weakness Cardiovascular: Reports dyspnea on exertion Respiratory: Reports excessive phlegm production, Reports dyspnea on exertion and Reports wheezing Gastrointestinal: Reports no additional gastrointestinal complaints Reports weakness Psychiatric: Reports anxiety Allergic/Immunologic: Reports wheezing Physical Exam Vital Signs: Last Vital Signs Temp 96.8 F 08/28/23 07:47 Pulse 87 08/28/23 08:12 Resp 20 08/28/23 08:12 BP 154/72 H 08/28/23 07:47 Pulse Ox 98 08/28/23 07:47 O2 Del Method Nasal Cannula 08/28/23 07:47 O2 Flow Rate 4 08/28/23 07:47 Oxygen Flow Rate 4 08/26/23 17:53 BMI result Body Mass Index 34.7 Const General: cooperative, alert, awake and in distress mild and respiratory Nutritional Appearance: obese Orientation/consciousness: patient oriented x3 HEENT Head: Yes normocephalic and Yes atraumatic Neck Neck: Yes trachea midline, Yes supple and Yes no JVD Resp Effort & Inspection: normal respiratory effort Auscultation: wheezes scattered wheezes and diminished lung sounds Cardio Jugular venous distension: no JVD Rhythm: abnormal rhythm irregularly irregular Heart sounds: S1 normal heart sound present, S2 normal heart sound present, no click, no gallops, no murmurs and no rubs GI Auscultation: normal bowel sounds Skin General skin exam: no rashes or lesions noted Neuro General: patient oriented x3 and no focal motor deficits Extrem General: Yes no clubbing, cyanosis or edema Objective Labs and Meds 08/28/23 06:15 08/28/23 06:15 Lab results: Laboratory Results - last 24 hr 08/27/23 08/28/23 18:05 06:15 WBC 14.1 H RBC 3.20 L Hgb 8.3 L Hct 27.5 L MCV 85.9 MCH 25.9 L MCHC 30.2 L RDW 19.1 H Plt Count 342 MPV 10.6 Absolute Nucleated RBC 0.000 Nucleated RBC % (auto) 0.0 Sodium 140 Potassium 3.7 Chloride 98 Carbon Dioxide 34 H Anion Gap 12 BUN 19 H Creatinine 0.71 Estim Creat Clear Calc 61.8 Estimated GFR > 60 Random Glucose 195 H Calcium 8.7 Troponin I High Sens 17.2 H Progress Note: A&P Assessment and plan (1) PAF (paroxysmal atrial fibrillation): Status: Acute Assessment and Plan: Paroxysmal atrial fibrillation converted to sinus rhythm after treatment for her pulmonary exacerbation. Continue Cardizem therapy. Continue treat underlying pulmonary condition and switch to pulmonary specific bronchodilators such as Xopenex. Continue full oral anticoagulation as before. (2) COPD exacerbation: Status: Acute Assessment and Plan: COPD exacerbation, management as per the hospitalist team. Continue aggressive treatment and supportive care and oxygen replacement as needed. (3) Chest pain: Status: Acute Assessment and Plan: Chest pain in this elderly woman multifactorial suggest myocardial ischemia but exacerbated by hypoxemic respiratory failure and rapid atrial fibrillation. Will require outpatient workup for prognostically significant coronary artery disease. Will schedule in couple of weeks after her pulmonary situation has improved. Will set up for outpatient follow-up. Will sign off the case. Discussed with hospitalist team Time Spent With Patient Time: Total time managing care of this patient today ____ minutes. Progress Note: Quality Stroke Does the patient have a stroke diagnosis?: No Procedures Date of Service Date of Service: 08/28/23
--- NOTE | 2023-08-28 12:38 | MHC.CM.PN ---
CM ATTEMPTED TO MEET WITH PT WHO WAS RECEIVING NURSING CARE CM CALLED PTS DAUGHTER/HCP, LOLI [phone] SHE REPORTS THE PT LIVES WITH HER AND SHE ASSISTS PT WITH CARE PRN SHE SAYS THE PT HAS ONLY MEALS ON WHEELS FOR SERVICES SHE HAS OXYGEN FROM [facility] FOR DME HCP ON FILE PCP: JOHN HERNANDEZ IMM DELIVERED DCP: HOME [facility] TO TRANSPORT
--- NOTE | 2023-08-28 14:37 | HO.PM.IMPN ---
Subjective Subjective Date of Service: 08/28/23 Interval History: Breathing improved overnight. Converted to sinus rhythm. No acute issues Review of Systems Denies chest pain Denies shortness of breath Denies nausea vomiting diarrhea Denies fever chills Physical Exam Vital Signs: Vital Signs: Last Vital Signs Temp 97.9 F 08/28/23 11:33 Pulse 91 08/28/23 11:58 Resp 20 08/28/23 11:58 BP 118/57 L 08/28/23 11:33 Pulse Ox 95 08/28/23 11:33 O2 Del Method Nasal Cannula 08/28/23 11:33 O2 Flow Rate 2.5 08/28/23 11:33 Oxygen Flow Rate 4 08/26/23 17:53 BMI result Body Mass Index 34.7 Const: Other: Awake alert no acute distress Resp: Other: Diminished throughout with scattered expiratory wheezes Cardio: Other: No S4; positive S1-S2; no S3 murmurs rubs or gallops GI: Other: Soft nontender nondistended normoactive bowel sounds Extrem: Other: No edema bilaterally Objective Data Active Medications Acetaminophen (Acetaminophen 325 Mg Tablet) 650 mg PO Q6H PRN PRN Reason: Pain, Mild (Pain Scale 1-3) Last Admin: 08/27/23 23:49 Dose: 650 mg Documented By: SILVINO Alprazolam (Alprazolam 0.25 Mg Tablet) 0.25 mg PO DAILY PRN PRN Reason: Anxiety Last Admin: 08/27/23 23:49 Dose: 0.25 mg Documented By: SILVINO Apixaban (Apixaban 5 Mg Tablet) 5 mg PO BID [facility] Last Admin: 08/28/23 09:49 Dose: 5 mg Documented By: ANNIE Diltiazem HCl (Diltiazem Hcl Cd 180 Mg Cap.Er.24h) 360 mg PO DAILY [facility]; Protocol Last Admin: 08/28/23 09:48 Dose: 360 mg Documented By: ANNIE Docusate Sodium (Docusate Sodium 100 Mg Capsule) 100 mg PO DAILY PRN PRN Reason: Constipation Escitalopram Oxalate (Escitalopram Oxalate 20 Mg Tablet) 20 mg PO DAILY [facility] Last Admin: 08/28/23 09:49 Dose: 20 mg Documented By: ANNIE Famotidine (Famotidine 20 Mg Tablet) 20 mg PO DAILY@0800 [facility] Last Admin: 08/28/23 09:49 Dose: 20 mg Documented By: ANNIE Fluticasone Propionate (Fluticasone Propionate Nasal 16 Gm [place]) 1 spray NOSTRIL-B DAILY PRN PRN Reason: allergies Fluticasone/Umeclidinium/Vilanterol (Fluticasone/Umeclidinium/Vilanterol 100/62.5/25 Blst.W.Dev) 1 puff INHALE RDAILY [facility] Last Admin: 08/28/23 08:10 Dose: 1 puff Documented By: ALEX Furosemide (Furosemide 40 Mg Tablet) 40 mg PO BID [facility]; Protocol Last Admin: 08/28/23 09:49 Dose: 40 mg Documented By: ANNIE Gabapentin (Gabapentin 300 Mg Capsule) 300 mg PO BEDTIME [facility] Last Admin: 08/27/23 20:47 Dose: 300 mg Documented By: SILVINO Guaifenesin/Dextromethorphan (Guaifenesin Dm 200/20/10 Ml 10 Ml Syrup) 10 ml PO Q4H PRN PRN Reason: Cough Last Admin: 08/28/23 05:25 Dose: 10 ml Documented By: SILVINO Azithromycin 500 mg/ Sodium (Chloride) 250 mls @ 125 mls/hr IV Q24H [facility] Last Infusion: 08/28/23 01:40 Dose: Infused Documented By: SILVINO Levalbuterol HCl (Levalbuterol Hcl 1.25 Mg/3 Ml Vial.Neb) 1.25 mg INHALE RQ4H WHILE AWAKE [facility] Last Admin: 08/28/23 11:58 Dose: 1.25 mg Documented By: ALEX Melatonin (Melatonin 3 Mg Tablet) 6 mg PO BEDTIME PRN PRN Reason: Insomnia Methylprednisolone Sodium Succinate (Methylprednisolone Sod Succ 125 Mg/2 Ml Vial) 60 mg IVPUSH Q6H [facility] Last Admin: 08/28/23 09:48 Dose: 60 mg Documented By: ANNIE Montelukast Sodium (Montelukast Sodium 10 Mg Tablet) 10 mg PO DAILY [facility] Last Admin: 08/28/23 09:49 Dose: 10 mg Documented By: ANNIE Oxycodone HCl (Oxycodone Hcl Immed Release 5 Mg Tablet) 5 mg PO Q4H PRN PRN Reason: Pain, Moderate(Pain Scale 4-6) Pravastatin Sodium (Pravastatin Sodium 40 Mg Tablet) 40 mg PO DAILY@0800 [facility] Last Admin: 08/28/23 09:49 Dose: 40 mg Documented By: ANNIE Ropinirole HCl (Ropinirole Hcl 0.25 Mg Tablet) 0.25 mg PO BID [facility] Last Admin: 08/28/23 09:49 Dose: 0.25 mg Documented By: ANNIE Sodium Chloride (0.9 % Sodium Chloride Flush 3 Ml Syringe) 3 ml IVFLUSH QSHIFT [facility] Last Admin: 08/28/23 09:50 Dose: 3 ml Documented By: ANNIE Labs 08/28/23 06:15 08/28/23 06:15 Labs: Laboratory Results - last 24 hr 08/27/23 08/28/23 18:05 06:15 MCV 85.9 MCH 25.9 L MCHC 30.2 L RDW 19.1 H Plt Count 342 MPV 10.6 Absolute Nucleated RBC 0.000 Nucleated RBC % (auto) 0.0 Anion Gap 12 Estim Creat Clear Calc 61.8 Estimated GFR > 60 Random Glucose 195 H Calcium 8.7 Troponin I High Sens 17.2 H Microbiology Microbiology Results: Microbiology 08/26/23 18:23 Blood Culture - Preliminary Blood - Venous No growth after 24 hours. 08/26/23 18:09 Blood Culture - Preliminary Blood - Venous No growth after 24 hours. Assessment and Plan (1) COPD exacerbation: Status: Acute (2) Acute and chronic respiratory failure with hypoxia: Status: Acute Plan Pt is an 82-year-old female with a PMH significant for?chronic hypoxemic respiratory failure, COPD on chronic 2 L home O2, paroxysmal AFib on Eliquis, HTN, HLD, venous insufficiency with chronic lower leg edema, and anxiety who presents to the ED with?increasing shortness of breath, difficulty breathing, and chest pain for the past 2-3 days. Pt will be admitted to the hospital for treatment further evaluation of acute on chronic hypoxic respiratory failure in the setting of COPD exacerbation with sepsis and AFib with RVR. 1.Acute on chronic respiratory failure/acute COPD exacerbation with sepsis -ceftriaxone/azithromycin (3) -pulse dose methylprednisolone 60 mg IV q.6 -DuoNebs q.4 hours p.r.n. while awake -titrate O2 to maintain sats greater than or equal to 92% 2.AFib with RVR -converted to sinus rhythm -continue Eliquis as ordered -adjust therapies as clinically indicated... Appreciate cardiology input 3.Chest pain/pressure with EKG changes -appreciate cardiology input -treat comorbidities and follow Full code Eliquis Patient will require ongoing hospitalization to treat COPD exacerbation with IV steroids and antibiotics. Ongoing specialist consultation Quality Stroke Does the patient have a stroke diagnosis?: No VTE Prior VTE?: No VTE Risk Level:: Medical - moderate - high VTE Device Contraindication: Treatment Not Indicated VTE Drug Contraindication: N/A - Med Ordered
[2023-08-28] MEDS: cefTRIAXone sodium 1 GM in 0.9 % Sodium Chloride 50 ML IV (17:10)
[2023-08-28] MEDS: Gabapentin 300 MG CAPSULE PO (21:36)
[2023-08-28] MEDS: Azithromycin 500 MG in 0.9 % Sodium Chloride 250 ML 125 MG IV (21:36)
[2023-08-28] MEDS: Acetaminophen 325 MG TABLET 650 MG PO (21:48)
[2023-08-29] VITALS (12 sets, daily range): BP systolic 127–158; BP diastolic 60–75; PULSE 78–140; RESP 16–20; TEMP 36–37.3; O2SAT 92–99
[2023-08-29] MEDS: guaiFENesin DM 200/20/10 ML 10 ML SYRUP PO ×4 (03:29→23:51)
[2023-08-29] MEDS: methylPREDNISolone Sod Succ 125 MG/2 ML VIAL 60 MG IVPUSH ×4 (03:29→22:56)
[2023-08-29 07:39] LABS: Hematocrit 28.5 % (37.0-47.0); Hemoglobin 8.6 g/dl (12.0-16.0); Mean Corpuscular HGB Conc 30.2 g/dl (31.0-35.0); Mean Corpuscular Hemoglobin 26.3 pg (27.0-33.0); Mean Corpuscular Volume 87.2 fL (80.0-98.0); Mean Platelet Volume 10.9 fL (9.4-12.3); Platelet Count 323 X10*3/uL (160-400); Red Blood Count 3.27 X10*6/uL (4.20-5.50); Red Cell Distribution Width 18.8 % (11.0-16.0); White Blood Count 10.1 X10*3/uL (4.8-10.8)
[2023-08-29 08:08] LABS: Anion Gap 11 (12-20); Blood Urea Nitrogen 17 mg/dL (9-16); Calcium 8.5 mg/dL (8.4-10.2); Carbon Dioxide 35 mmol/L (22-29); Chloride 98 mmol/L (96-108); Creatinine Clr Calc Pharmacy 63.6; Estimated Glomerular Filt Rate > 60; Glucose Random 264 mg/dL (60-115); Potassium 3.8 mmol/L (3.3-5.1); Sodium 140 mmol/L (135-145)
[2023-08-29] MEDS: levalbuterol HCL 1.25 MG/3 ML VIAL.NEB INHALE ×4 (08:33→19:49)
[2023-08-29] MEDS: Fluticasone/Umeclidinium/Vilanterol 100/62.5/25 BLST.W.DEV 1 PUFF INHALE (08:33)
[2023-08-29] MEDS: Furosemide 40 MG TABLET PO ×2 (08:52→20:48)
[2023-08-29] MEDS: rOPINIRole HCL 0.25 MG TABLET PO ×2 (08:53→20:48)
[2023-08-29] MEDS: Apixaban 5 MG TABLET PO ×2 (08:53→20:49)
[2023-08-29] MEDS: Pravastatin Sodium 40 MG TABLET PO (08:53)
[2023-08-29] MEDS: Famotidine 20 MG TABLET PO (08:53)
[2023-08-29] MEDS: Montelukast Sodium 10 MG TABLET PO (08:53)
[2023-08-29] MEDS: Escitalopram Oxalate 20 MG TABLET PO (08:53)
[2023-08-29] MEDS: dilTIAZem HCL CD 180 MG CAP.ER.24H 360 MG PO (08:54)
[2023-08-29] MEDS: 0.9 % Sodium Chloride Flush 3 ML SYRINGE IVFLUSH ×3 (08:54→23:51)
--- NOTE | 2023-08-29 13:44 | P.PNIM_ITS ---
Subjective Subjective Date of Service: 08/29/23 Interval History: Slowly improving overall. Still with O2 requirement Review of Systems Denies chest pain Denies shortness of breath Denies nausea vomiting diarrhea Denies fever chills Physical Exam 2 Vital Signs: Vital Signs: Last Vital Signs Temp 99.2 F 08/29/23 11:34 Pulse 89 08/29/23 12:14 Resp 17 08/29/23 12:14 BP 147/65 H 08/29/23 11:34 Pulse Ox 92 08/29/23 11:34 O2 Del Method Nasal Cannula 08/29/23 11:34 O2 Flow Rate 4 08/29/23 11:34 Oxygen Flow Rate 4 08/26/23 17:53 BMI result Body Mass Index 34.7 Const: Other: Awake alert no acute distress Resp: Other: Diminished throughout with scattered expiratory wheezes Cardio: Other: No S4; positive S1-S2; no S3 murmurs rubs or gallops GI: Other: Soft nontender nondistended normoactive bowel sounds Extrem: Other: No edema bilaterally Objective Data Active Medications Acetaminophen (Acetaminophen 325 Mg Tablet) 650 mg PO Q6H PRN PRN Reason: Pain, Mild (Pain Scale 1-3) Last Admin: 08/28/23 21:48 Dose: 650 mg Documented By: ANNA Alprazolam (Alprazolam 0.25 Mg Tablet) 0.25 mg PO DAILY PRN PRN Reason: Anxiety Last Admin: 08/27/23 23:49 Dose: 0.25 mg Documented By: SILVINO Apixaban (Apixaban 5 Mg Tablet) 5 mg PO BID [facility] Last Admin: 08/29/23 08:53 Dose: 5 mg Documented By: ANNIE Diltiazem HCl (Diltiazem Hcl Cd 180 Mg Cap.Er.24h) 360 mg PO DAILY [facility]; Protocol Last Admin: 08/29/23 08:54 Dose: 360 mg Documented By: ANNIE Docusate Sodium (Docusate Sodium 100 Mg Capsule) 100 mg PO DAILY PRN PRN Reason: Constipation Escitalopram Oxalate (Escitalopram Oxalate 20 Mg Tablet) 20 mg PO DAILY [facility] Last Admin: 08/29/23 08:53 Dose: 20 mg Documented By: ANNIE Famotidine (Famotidine 20 Mg Tablet) 20 mg PO DAILY@0800 [facility] Last Admin: 08/29/23 08:53 Dose: 20 mg Documented By: ANNIE Fluticasone Propionate (Fluticasone Propionate Nasal 16 Gm [place]) 1 spray NOSTRIL-B DAILY PRN PRN Reason: allergies Fluticasone/Umeclidinium/Vilanterol (Fluticasone/Umeclidinium/Vilanterol 100/62.5/25 Blst.W.Dev) 1 puff INHALE RDAILY [facility] Last Admin: 08/29/23 08:33 Dose: 1 puff Documented By: JUDITH Furosemide (Furosemide 40 Mg Tablet) 40 mg PO BID [facility]; Protocol Last Admin: 08/29/23 08:52 Dose: 40 mg Documented By: ANNIE Gabapentin (Gabapentin 300 Mg Capsule) 300 mg PO BEDTIME [facility] Last Admin: 08/28/23 21:36 Dose: 300 mg Documented By: ANNA Guaifenesin/Dextromethorphan (Guaifenesin Dm 200/20/10 Ml 10 Ml Syrup) 10 ml PO Q4H PRN PRN Reason: Cough Last Admin: 08/29/23 08:52 Dose: 10 ml Documented By: ANNIE Azithromycin 500 mg/ Sodium (Chloride) 250 mls @ 125 mls/hr IV Q24H [facility] Last Infusion: 08/28/23 23:45 Dose: Infused Documented By: SILVINO Ceftriaxone Sodium 1 gm/ (Sodium Chloride) 50 mls @ 100 mls/hr IV Q24H [facility] Last Infusion: 08/28/23 18:51 Dose: Infused Documented By: ANNIE Levalbuterol HCl (Levalbuterol Hcl 1.25 Mg/3 Ml Vial.Neb) 1.25 mg INHALE RQ4H WHILE AWAKE [facility] Last Admin: 08/29/23 12:13 Dose: 1.25 mg Documented By: JUDITH Melatonin (Melatonin 3 Mg Tablet) 6 mg PO BEDTIME PRN PRN Reason: Insomnia Methylprednisolone Sodium Succinate (Methylprednisolone Sod Succ 125 Mg/2 Ml Vial) 60 mg IVPUSH Q6H [facility] Last Admin: 08/29/23 03:29 Dose: 60 mg Documented By: SILVINO Montelukast Sodium (Montelukast Sodium 10 Mg Tablet) 10 mg PO DAILY [facility] Last Admin: 08/29/23 08:53 Dose: 10 mg Documented By: ANNIE Oxycodone HCl (Oxycodone Hcl Immed Release 5 Mg Tablet) 5 mg PO Q4H PRN PRN Reason: Pain, Moderate(Pain Scale 4-6) Pravastatin Sodium (Pravastatin Sodium 40 Mg Tablet) 40 mg PO DAILY@0800 [facility] Last Admin: 08/29/23 08:53 Dose: 40 mg Documented By: ANNIE Ropinirole HCl (Ropinirole Hcl 0.25 Mg Tablet) 0.25 mg PO BID [facility] Last Admin: 08/29/23 08:53 Dose: 0.25 mg Documented By: ANNIE Sodium Chloride (0.9 % Sodium Chloride Flush 3 Ml Syringe) 3 ml IVFLUSH QSHIFT [facility] Last Admin: 08/29/23 08:54 Dose: 3 ml Documented By: ANNIE Labs 08/29/23 07:11 08/29/23 07:11 Labs: Laboratory Results - last 24 hr 08/29/23 07:11 MCV 87.2 MCH 26.3 L MCHC 30.2 L RDW 18.8 H Plt Count 323 MPV 10.9 Absolute Nucleated RBC 0.000 Nucleated RBC % (auto) 0.0 Anion Gap 11 L Estim Creat Clear Calc 63.6 Estimated GFR > 60 Random Glucose 264 H Calcium 8.5 Microbiology Microbiology Results: Microbiology 08/26/23 18:23 Blood Culture - Preliminary Blood - Venous No growth after 48 hours. 08/26/23 18:09 Blood Culture - Preliminary Blood - Venous No growth after 48 hours. Assessment and Plan (1) Acute and chronic respiratory failure with hypoxia: Status: Acute (2) COPD exacerbation: Status: Acute Plan Pt is an 82-year-old female with a PMH significant for?chronic hypoxemic respiratory failure, COPD on chronic 2 L home O2, paroxysmal AFib on Eliquis, HTN, HLD, venous insufficiency with chronic lower leg edema, and anxiety who presents to the ED with?increasing shortness of breath, difficulty breathing, and chest pain for the past 2-3 days. Pt will be admitted to the hospital for treatment further evaluation of acute on chronic hypoxic respiratory failure in the setting of COPD exacerbation with sepsis and AFib with RVR. 1.Acute on chronic respiratory failure/acute COPD exacerbation with sepsis -ceftriaxone/azithromycin (4) -pulse dose methylprednisolone 60 mg IV q.6 -DuoNebs q.4 hours p.r.n. while awake -titrate O2 to maintain sats greater than or equal to 92% 2.AFib with RVR (spontaneously converted) -Remains in sinus rhythm -continue Eliquis as ordered -adjust therapies as clinically indicated... Appreciate cardiology input 3.Chest pain/pressure with EKG changes -appreciate cardiology input -treat comorbidities and follow Full code Eliquis Patient will require ongoing hospitalization to treat COPD exacerbation with IV steroids and antibiotics. Ongoing specialist consultation Quality Stroke Does the patient have a stroke diagnosis?: No VTE Prior VTE?: No VTE Risk Level:: Medical - moderate - high VTE Device Contraindication: Treatment Not Indicated VTE Drug Contraindication: N/A - Med Ordered
[2023-08-29] MEDS: cefTRIAXone sodium 1 GM in 0.9 % Sodium Chloride 50 ML IV (15:11)
[2023-08-29] MEDS: dilTIAZem HCL 50 MG/10 ML VIAL 10 MG IVPUSH (16:59)
--- NOTE | 2023-08-29 17:00 | ECG_ITS ---
Test Reason : rapid hr Blood Pressure : / mmHG Vent. Rate : 138 BPM Atrial Rate : 000 BPM P-R Int : 000 ms QRS Dur : 080 ms QT Int : 284 ms P-R-T Axes : 000 070 -51 degrees QTc Int : 430 ms Atrial fibrillation with rapid ventricular response with premature ventricular or aberrantly conducted complexes ST depression inferior and anterolateral leads Abnormal ECG When compared with ECG of 26-AUG-2023 19:18, No significant change was found Referred By: Juan Ledezma Electronically Signed By:OCTAVIANO JOHNSON
[2023-08-29] MEDS: dilTIAZem HCL 125 MG in 0.9 % Sodium Chloride 100 ML IVCONT (17:07)
--- NOTE | 2023-08-29 17:16 | PM.EVENT ---
Event Note Date of Service: 08/29/23 Event Note: Patient noted to have elevated heart rate in the 150s at approximately 16:40. EKG was ordered and showed AFib with RVR. Patient was given Cardizem 10 mg IV and started on Cardizem drip at [address] Ledezma. Time Spent With Patient Time: Total time managing care of this patient today ____ minutes.
[2023-08-29] MEDS: Digoxin 0.5 MG/2 ML AMPUL 0.25 MG IVPUSH (19:21)
[2023-08-29] MEDS: Gabapentin 300 MG CAPSULE PO (20:48)
[2023-08-29] MEDS: Azithromycin 500 MG in 0.9 % Sodium Chloride 250 ML 125 MG IV (22:56)
[2023-08-29] MEDS: ALPRAZolam 0.25 MG TABLET PO (23:51)
[2023-08-30] VITALS (13 sets, daily range): BP systolic 128–162; BP diastolic 64–82; PULSE 71–135; RESP 16–20; TEMP 36.3–37.1; O2SAT 92–100
[2023-08-30] MEDS: Digoxin 0.5 MG/2 ML AMPUL 0.25 MG IVPUSH ×3 (01:26→11:58)
[2023-08-30] MEDS: dilTIAZem HCL 125 MG in 0.9 % Sodium Chloride 100 ML IVCONT (01:39)
[2023-08-30] MEDS: methylPREDNISolone Sod Succ 125 MG/2 ML VIAL 60 MG IVPUSH ×3 (05:12→16:18)
[2023-08-30] MEDS: Fluticasone/Umeclidinium/Vilanterol 100/62.5/25 BLST.W.DEV 1 PUFF INHALE (07:13)
[2023-08-30] MEDS: levalbuterol HCL 1.25 MG/3 ML VIAL.NEB INHALE ×4 (07:13→20:02)
[2023-08-30] MEDS: dilTIAZem HCL CD 180 MG CAP.ER.24H 360 MG PO (08:40)
[2023-08-30] MEDS: guaiFENesin DM 200/20/10 ML 10 ML SYRUP PO ×2 (08:40→17:24)
[2023-08-30] MEDS: Montelukast Sodium 10 MG TABLET PO (08:40)
[2023-08-30] MEDS: Famotidine 20 MG TABLET PO (08:41)
[2023-08-30] MEDS: Apixaban 5 MG TABLET PO ×2 (08:41→20:39)
[2023-08-30] MEDS: Escitalopram Oxalate 20 MG TABLET PO (08:41)
[2023-08-30] MEDS: 0.9 % Sodium Chloride Flush 3 ML SYRINGE IVFLUSH ×2 (08:41→14:28)
[2023-08-30] MEDS: rOPINIRole HCL 0.25 MG TABLET PO ×2 (08:41→20:39)
[2023-08-30] MEDS: Furosemide 40 MG TABLET PO ×2 (08:41→20:38)
[2023-08-30] MEDS: Pravastatin Sodium 40 MG TABLET PO (08:41)
--- NOTE | 2023-08-30 10:11 | PM.PNCARD ---
Subjective Subjective Date of Service: 08/30/23 Principal diagnosis: COPD exacerbation, hypoxic respiratory failure, PAF Interval history: Patient states she is feeling okay. No new cardiac complaints. Review of Systems Review of Systems Yes all other systems are reviewed and are negative Constitutional: Reports as per HPI and Reports no additional constitutional complaints Eyes: Reports as per HPI and Denies no additional eye complaints Denies system reviewed and no additional complaints, except as documented and Reports as per HPI Cardiovascular: Reports as per HPI, Reports no additional cardiovascular complaints, Denies acrocyanosis, Denies cool extremities, Denies chest pain, Denies leg edema, Denies lightheadedness, Denies palpitations and Reports dyspnea Respiratory: Reports as per HPI, Denies no additional respiratory complaints and Reports dyspnea Gastrointestinal: Reports as per HPI and Denies no additional gastrointestinal complaints Genitourinary: Reports as per HPI Musculoskeletal: Reports no additional musculoskeletal complaints and Reports as per HPI Skin/Breast: Reports system reviewed and no additional complaints, except as docu Reports system reviewed and no additional complaints, except as documented and Reports as per HPI Psychiatric: Reports no additional psychiatric complaints and Reports as per HPI Endocrine: Reports no additional endocrine complaints, Reports as per HPI and Denies palpitations Hematologic/Lymphatic: Reports no additional hematologic/lymphatic complaints and Reports as per HPI Allergic/Immunologic: Reports no additional allergic/immunologic complaints and Reports as per HPI Physical Exam Vital Signs: Last Vital Signs Temp 98.3 F 08/30/23 08:00 Pulse 96 08/30/23 08:00 Resp 20 08/30/23 08:00 BP 150/67 H 08/30/23 08:00 Pulse Ox 100 08/30/23 08:00 O2 Del Method Nasal Cannula 08/30/23 08:00 O2 Flow Rate 4 08/30/23 08:00 Oxygen Flow Rate 4 08/26/23 17:53 BMI result Body Mass Index 34.7 Const General: comfortable and no acute distress Orientation/consciousness: patient oriented x3 HEENT Other: Unremarkable Head: Yes normal to inspection Neck Neck: Yes normal visual inspection Chest Chest palpation & inspection: normal inspection of the chest Resp Auscultation: wheezes and diminished lung sounds Cardio Palpation: normal PMI Heart sounds: S1 normal heart sound present, S2 normal heart sound present, no gallops, no murmurs and no rubs GI Palpation (GI): Soft to palpation Back/Spine/Pelvis Other: unremarkable Skin General skin exam: no rashes or lesions noted Neuro General: patient oriented x3 Extrem General: Yes normal to inspection Psych Mental Status: mental status grossly normal Objective Labs and Meds 08/29/23 07:11 08/29/23 07:11 Progress Note: A&P Assessment and plan (1) Acute and chronic respiratory failure with hypoxia: Status: Acute (2) Atrial fibrillation with RVR: Status: Acute Plan On telemetry, rhythm is probably sinus rhythm with PACs. Some areas possibly atrial tachycardia looking but unlikely atrial fibrillation. Yesterday there was some atrial fibrillation. Likely all related to advanced lung disease. She is currently on diltiazem CD 360 mg daily. It seems she also got digoxin. As she is already back in sinus rhythm, need not continue digoxin. Continue anticoagulation. Continue treat the respiratory issues as that is probably precipitating the atrial fibrillation. Echocardiogram with LVEF of 65-70%. Moderately dilated right ventricle with normal function. Possible early aortic stenosis. Moderately dilated left atrium. Moderate pulmonary hypertension. Time Spent With Patient Time: Total time managing care of this patient today 41 minutes. This includes time spent in review of chart, laboratory data, imaging studies, review of telemetry, counseling patient, discussion with hospitalist, RN, documentation, coordination of care. Progress Note: Quality Stroke Does the patient have a stroke diagnosis?: No Procedures Date of Service Date of Service: 08/30/23
[2023-08-30] MEDS: cefTRIAXone sodium 1 GM in 0.9 % Sodium Chloride 50 ML IV (14:30)
--- NOTE | 2023-08-30 16:36 | HO.PM.IMPN ---
Subjective Subjective Date of Service: 08/31/23 Interval History: Patient is overall feeling better, less sob HR is controlled and no longer in afib with rVR Physical Exam Vital Signs: Vital Signs: Last Vital Signs Temp 98.0 F 08/30/23 16:00 Pulse 89 08/30/23 16:00 Resp 20 08/30/23 16:00 BP 140/64 H 08/30/23 16:00 Pulse Ox 100 08/30/23 16:00 O2 Del Method Nasal Cannula 08/30/23 16:00 O2 Flow Rate 4 08/30/23 16:00 Oxygen Flow Rate 4 08/26/23 17:53 BMI result Body Mass Index 34.7 Const: Other: General: AO X 3, no acute distress Resp: CTA bilateral CVS: S1,S2,RRR GI: +BS, NT, no distention Skin: No rash Neuro: motor grossly intact Psych: appropriate affect Objective Data Active Medications Acetaminophen (Acetaminophen 325 Mg Tablet) 650 mg PO Q6H PRN PRN Reason: Pain, Mild (Pain Scale 1-3) Last Admin: 08/28/23 21:48 Dose: 650 mg Documented By: ANNA Alprazolam (Alprazolam 0.25 Mg Tablet) 0.25 mg PO DAILY PRN PRN Reason: Anxiety Last Admin: 08/29/23 23:51 Dose: 0.25 mg Documented By: BETTY Apixaban (Apixaban 5 Mg Tablet) 5 mg PO BID [facility] Last Admin: 08/30/23 08:41 Dose: 5 mg Documented By: MARICRUZ Diltiazem HCl (Diltiazem Hcl Cd 180 Mg Cap.Er.24h) 360 mg PO DAILY [facility]; Protocol Last Admin: 08/30/23 08:40 Dose: 360 mg Documented By: MARICRUZ Docusate Sodium (Docusate Sodium 100 Mg Capsule) 100 mg PO DAILY PRN PRN Reason: Constipation Escitalopram Oxalate (Escitalopram Oxalate 20 Mg Tablet) 20 mg PO DAILY [facility] Last Admin: 08/30/23 08:41 Dose: 20 mg Documented By: MARICRUZ Famotidine (Famotidine 20 Mg Tablet) 20 mg PO DAILY@0800 [facility] Last Admin: 08/30/23 08:41 Dose: 20 mg Documented By: MARICRUZ Fluticasone Propionate (Fluticasone Propionate Nasal 16 Gm [place]) 1 spray NOSTRIL-B DAILY PRN PRN Reason: allergies Fluticasone/Umeclidinium/Vilanterol (Fluticasone/Umeclidinium/Vilanterol 100/62.5/25 Blst.W.Dev) 1 puff INHALE RDAILY [facility] Last Admin: 08/30/23 07:13 Dose: 1 puff Documented By: MUMTAZ Furosemide (Furosemide 40 Mg Tablet) 40 mg PO BID [facility]; Protocol Last Admin: 08/30/23 08:41 Dose: 40 mg Documented By: MARICRUZ Gabapentin (Gabapentin 300 Mg Capsule) 300 mg PO BEDTIME [facility] Last Admin: 08/29/23 20:48 Dose: 300 mg Documented By: KRISTAN Guaifenesin/Dextromethorphan (Guaifenesin Dm 200/20/10 Ml 10 Ml Syrup) 10 ml PO Q4H PRN PRN Reason: Cough Last Admin: 08/30/23 08:40 Dose: 10 ml Documented By: MARICRUZ Azithromycin 500 mg/ Sodium (Chloride) 250 mls @ 125 mls/hr IV Q24H [facility] Last Infusion: 08/30/23 00:59 Dose: Infused Documented By: BETTY Ceftriaxone Sodium 1 gm/ (Sodium Chloride) 50 mls @ 100 mls/hr IV Q24H [facility] Last Infusion: 08/30/23 15:00 Dose: Infused Documented By: MARICRUZ Diltiazem HCl 125 mg/ Sodium (Chloride) 125 mls @ 0 mls/hr IVCONT .Q0M [facility]; Protocol Last Titration: 08/30/23 02:21 Dose: 0 mg/hr, 0 mls/hr Documented By: BETTY Levalbuterol HCl (Levalbuterol Hcl 1.25 Mg/3 Ml Vial.Neb) 1.25 mg INHALE RQ4H WHILE AWAKE [facility] Last Admin: 08/30/23 15:34 Dose: 1.25 mg Documented By: ALEX Melatonin (Melatonin 3 Mg Tablet) 6 mg PO BEDTIME PRN PRN Reason: Insomnia Methylprednisolone Sodium Succinate (Methylprednisolone Sod Succ 125 Mg/2 Ml Vial) 60 mg IVPUSH Q6H [facility] Last Admin: 08/30/23 16:18 Dose: 60 mg Documented By: MARICRUZ Montelukast Sodium (Montelukast Sodium 10 Mg Tablet) 10 mg PO DAILY [facility] Last Admin: 08/30/23 08:40 Dose: 10 mg Documented By: MARICRUZ Oxycodone HCl (Oxycodone Hcl Immed Release 5 Mg Tablet) 5 mg PO Q4H PRN PRN Reason: Pain, Moderate(Pain Scale 4-6) Pravastatin Sodium (Pravastatin Sodium 40 Mg Tablet) 40 mg PO DAILY@0800 [facility] Last Admin: 08/30/23 08:41 Dose: 40 mg Documented By: MARICRUZ Ropinirole HCl (Ropinirole Hcl 0.25 Mg Tablet) 0.25 mg PO BID [facility] Last Admin: 08/30/23 08:41 Dose: 0.25 mg Documented By: MARICRUZ Sodium Chloride (0.9 % Sodium Chloride Flush 3 Ml Syringe) 3 ml IVFLUSH QSHIFT [facility] Last Admin: 08/30/23 14:28 Dose: 3 ml Documented By: MARICRUZ Labs 08/29/23 07:11 08/29/23 07:11 Assessment and Plan (1) Acute and chronic respiratory failure with hypoxia: Status: Acute (2) COPD exacerbation: Status: Acute Plan Pt is an 82-year-old female with a PMH significant for?chronic hypoxemic respiratory failure, COPD on chronic 2 L home O2, paroxysmal AFib on Eliquis, HTN, HLD, venous insufficiency with chronic lower leg edema, and anxiety who presents to the ED with?increasing shortness of breath, difficulty breathing, and chest pain for the past 2-3 days. Pt will be admitted to the hospital for treatment further evaluation of acute on chronic hypoxic respiratory failure in the setting of COPD exacerbation with sepsis and AFib with RVR. 1.Acute on chronic respiratory failure/acute COPD exacerbation with sepsis--improving -ceftriaxone/azithromycin (5) for bronchiis -pulse dose methylprednisolone 40 mg IV bid -DuoNebs q.4 hours p.r.n. while awake -titrate O2 to maintain sats greater than or equal to 92% 2.AFib with RVR required IV cardizem and dig--now rate controlled, continue oral cardizem, continue eliquis, no dig per card, echo ef 60 3.Chest pain/pressure with EKG changes -appreciate cardiology input -treat comorbidities and follow Full code [place] Patient will require ongoing hospitalization to treat COPD exacerbation with IV steroids and antibiotics. Ongoing specialist consultation Quality Stroke Does the patient have a stroke diagnosis?: No VTE Prior VTE?: No VTE Risk Level:: Medical - moderate - high VTE Device Contraindication: Treatment Not Indicated VTE Drug Contraindication: N/A - Med Ordered
[2023-08-30] MEDS: Gabapentin 300 MG CAPSULE PO (20:39)
[2023-08-31] VITALS (11 sets, daily range): BP systolic 127–157; BP diastolic 61–83; PULSE 73–129; RESP 17–22; TEMP 36.3–36.6; O2SAT 90–100
[2023-08-31] MEDS: Azithromycin 500 MG in 0.9 % Sodium Chloride 250 ML 125 MG IV (00:13)
[2023-08-31] MEDS: 0.9 % Sodium Chloride Flush 3 ML SYRINGE IVFLUSH ×4 (00:13→20:59)
--- NOTE | 2023-08-31 00:55 | PC.NURSE ---
Patient A-fib on the monitor, previously on cardizem drip which was held after patient converted to SR previous night (08/30 at 0230) Now afib with HR in 120s reaching to 135 at times, MD notified. Per provider orders continue to monitor and report if HR above 140bpm
[2023-08-31] MEDS: methylPREDNISolone Sod Succ 125 MG/2 ML VIAL 40 MG IVPUSH ×2 (04:49→16:24)
[2023-08-31] MEDS: guaiFENesin DM 200/20/10 ML 10 ML SYRUP PO ×4 (04:54→20:54)
[2023-08-31] MEDS: levalbuterol HCL 1.25 MG/3 ML VIAL.NEB INHALE ×4 (08:17→19:53)
[2023-08-31] MEDS: Fluticasone/Umeclidinium/Vilanterol 100/62.5/25 BLST.W.DEV 1 PUFF INHALE (08:17)
--- NOTE | 2023-08-31 08:45 | ECG_ITS ---
Test Reason : rythm change Blood Pressure : / mmHG Vent. Rate : 144 BPM Atrial Rate : 144 BPM P-R Int : 176 ms QRS Dur : 078 ms QT Int : 278 ms P-R-T Axes : 000 078 256 degrees QTc Int : 430 ms Possible atrial flutter with rapid rate Inferior and anterolateral ST depression Abnormal ECG When compared with ECG of 29-AUG-2023 16:33, No significant changes seen Referred By: Oh Avalos Electronically Signed By:OCTAVIANO JOHNSON
[2023-08-31] MEDS: rOPINIRole HCL 0.25 MG TABLET PO ×2 (09:18→20:57)
[2023-08-31] MEDS: dilTIAZem HCL CD 180 MG CAP.ER.24H 360 MG PO (09:18)
[2023-08-31] MEDS: Furosemide 40 MG TABLET PO ×2 (09:19→20:56)
[2023-08-31] MEDS: Famotidine 20 MG TABLET PO (09:19)
[2023-08-31] MEDS: Escitalopram Oxalate 20 MG TABLET PO (09:19)
[2023-08-31] MEDS: Pravastatin Sodium 40 MG TABLET PO (09:19)
[2023-08-31] MEDS: Apixaban 5 MG TABLET PO ×2 (09:19→20:56)
[2023-08-31] MEDS: Montelukast Sodium 10 MG TABLET PO (09:19)
--- NOTE | 2023-08-31 10:47 | P.PNIM_ITS ---
Subjective Subjective Date of Service: 08/31/23 Interval History: Breathing is oveall better, HR has been flutuating presently sinus tachy around 140 Physical Exam 2 Vital Signs: Vital Signs: Last Vital Signs Temp 97.8 F 08/31/23 07:36 Pulse 85 08/31/23 08:20 Resp 18 08/31/23 08:20 BP 135/76 08/31/23 07:36 Pulse Ox 97 08/31/23 07:36 O2 Del Method Nasal Cannula 08/31/23 07:36 O2 Flow Rate 3 08/31/23 07:36 Oxygen Flow Rate 4 08/26/23 17:53 BMI result Body Mass Index 34.7 General: AO X 3, no acute distress Resp: CTA bilateral CVS: S1,S2,RRR GI: +BS, NT, no distention Skin: No rash Neuro: motor grossly intact Psych: appropriate affect Objective Data Active Medications Acetaminophen (Acetaminophen 325 Mg Tablet) 650 mg PO Q6H PRN PRN Reason: Pain, Mild (Pain Scale 1-3) Last Admin: 08/28/23 21:48 Dose: 650 mg Documented By: ANNA Alprazolam (Alprazolam 0.25 Mg Tablet) 0.25 mg PO DAILY PRN PRN Reason: Anxiety Last Admin: 08/29/23 23:51 Dose: 0.25 mg Documented By: BETTY Apixaban (Apixaban 5 Mg Tablet) 5 mg PO BID [facility] Last Admin: 08/31/23 09:19 Dose: 5 mg Documented By: DAHLIA Diltiazem HCl (Diltiazem Hcl Cd 180 Mg Cap.Er.24h) 360 mg PO DAILY [facility]; Protocol Last Admin: 08/31/23 09:18 Dose: 360 mg Documented By: DAHLIA Docusate Sodium (Docusate Sodium 100 Mg Capsule) 100 mg PO DAILY PRN PRN Reason: Constipation Escitalopram Oxalate (Escitalopram Oxalate 20 Mg Tablet) 20 mg PO DAILY [facility] Last Admin: 08/31/23 09:19 Dose: 20 mg Documented By: DAHLIA Famotidine (Famotidine 20 Mg Tablet) 20 mg PO DAILY@0800 [facility] Last Admin: 08/31/23 09:19 Dose: 20 mg Documented By: DAHLIA Fluticasone Propionate (Fluticasone Propionate Nasal 16 Gm [place]) 1 spray NOSTRIL-B DAILY PRN PRN Reason: allergies Fluticasone/Umeclidinium/Vilanterol (Fluticasone/Umeclidinium/Vilanterol 100/62.5/25 Blst.W.Dev) 1 puff INHALE RDAILY [facility] Last Admin: 08/31/23 08:17 Dose: 1 puff Documented By: SHAYE Furosemide (Furosemide 40 Mg Tablet) 40 mg PO BID [facility]; Protocol Last Admin: 08/31/23 09:19 Dose: 40 mg Documented By: DAHLIA Gabapentin (Gabapentin 300 Mg Capsule) 300 mg PO BEDTIME [facility] Last Admin: 08/30/23 20:39 Dose: 300 mg Documented By: THAO Guaifenesin/Dextromethorphan (Guaifenesin Dm 200/20/10 Ml 10 Ml Syrup) 10 ml PO Q4H PRN PRN Reason: Cough Last Admin: 08/31/23 09:18 Dose: 10 ml Documented By: DAHLIA Azithromycin 500 mg/ Sodium (Chloride) 250 mls @ 125 mls/hr IV Q24H [facility] Last Infusion: 08/31/23 02:26 Dose: Infused Documented By: THAO Ceftriaxone Sodium 1 gm/ (Sodium Chloride) 50 mls @ 100 mls/hr IV Q24H [facility] Last Infusion: 08/30/23 15:00 Dose: Infused Documented By: MARICRUZ Diltiazem HCl 125 mg/ Sodium (Chloride) 125 mls @ 0 mls/hr IVCONT .Q0M [facility]; Protocol Last Titration: 08/30/23 02:21 Dose: 0 mg/hr, 0 mls/hr Documented By: BETTY Levalbuterol HCl (Levalbuterol Hcl 1.25 Mg/3 Ml Vial.Neb) 1.25 mg INHALE RQ4H WHILE AWAKE [facility] Last Admin: 08/31/23 08:17 Dose: 1.25 mg Documented By: SHAYE Melatonin (Melatonin 3 Mg Tablet) 6 mg PO BEDTIME PRN PRN Reason: Insomnia Methylprednisolone Sodium Succinate (Methylprednisolone Sod Succ 125 Mg/2 Ml Vial) 40 mg IVPUSH Q12H [facility] Last Admin: 08/31/23 04:49 Dose: 40 mg Documented By: HECTOR Montelukast Sodium (Montelukast Sodium 10 Mg Tablet) 10 mg PO DAILY [facility] Last Admin: 08/31/23 09:19 Dose: 10 mg Documented By: DAHLIA Oxycodone HCl (Oxycodone Hcl Immed Release 5 Mg Tablet) 5 mg PO Q4H PRN PRN Reason: Pain, Moderate(Pain Scale 4-6) Pravastatin Sodium (Pravastatin Sodium 40 Mg Tablet) 40 mg PO DAILY@0800 [facility] Last Admin: 08/31/23 09:19 Dose: 40 mg Documented By: DAHLIA Ropinirole HCl (Ropinirole Hcl 0.25 Mg Tablet) 0.25 mg PO BID [facility] Last Admin: 08/31/23 09:18 Dose: 0.25 mg Documented By: DAHLIA Sodium Chloride (0.9 % Sodium Chloride Flush 3 Ml Syringe) 3 ml IVFLUSH QSHIFT [facility] Last Admin: 08/31/23 10:16 Dose: 3 ml Documented By: DAHLIA Labs 08/29/23 07:11 08/29/23 07:11 Assessment and Plan (1) Acute and chronic respiratory failure with hypoxia: Status: Acute (2) COPD exacerbation: Status: Acute Plan Pt is an 82-year-old female with a PMH significant for?chronic hypoxemic respiratory failure, COPD on chronic 2 L home O2, paroxysmal AFib on Eliquis, HTN, HLD, venous insufficiency with chronic lower leg edema, and anxiety who presents to the ED with?increasing shortness of breath, difficulty breathing, and chest pain for the past 2-3 days. Pt will be admitted to the hospital for treatment further evaluation of acute on chronic hypoxic respiratory failure in the setting of COPD exacerbation with sepsis and AFib with RVR. 1.Acute on chronic respiratory failure/acute COPD exacerbation with sepsis--improved, no pna. Has been treated for 5 days with antibiotics, stop Abx, change to oral Prednisone and wean off steroid. continue O2 to home dose 2.AFib with RVR required IV cardizem and dig--now sinus tach, continue oral Cardizem, eliquis and discuss further with cardiology 3.Chest pain/pressure with EKG changes, no further testing per cardiology Full code Eliquis Patient will require ongoing hospitalization to treat COPD exacerbation with IV steroids and antibiotics. Ongoing specialist consultation Quality Stroke Does the patient have a stroke diagnosis?: No VTE Prior VTE?: No VTE Risk Level:: Medical - moderate - high VTE Device Contraindication: Treatment Not Indicated VTE Drug Contraindication: N/A - Med Ordered
--- NOTE | 2023-08-31 12:01 | ECG_ITS ---
Test Reason : afib Blood Pressure : / mmHG Vent. Rate : 143 BPM Atrial Rate : 300 BPM P-R Int : 000 ms QRS Dur : 078 ms QT Int : 272 ms P-R-T Axes : 000 076 -55 degrees QTc Int : 419 ms Atrial fibrillation with rapid ventricular response vs flutter Nonspecific ST and T wave abnormality Abnormal ECG When compared with ECG of 31-AUG-2023 08:39, No significant changes seen Referred By: Oh Avalos Electronically Signed By:OCTAVIANO JOHNSON
[2023-08-31] MEDS: dilTIAZem HCL 50 MG/10 ML VIAL 10 MG IVPUSH (12:19)
[2023-08-31] MEDS: Amiodarone HCL 200 MG TABLET 400 MG PO ×2 (12:38→20:56)
[2023-08-31] MEDS: cefTRIAXone sodium 1 GM in 0.9 % Sodium Chloride 50 ML IV (16:24)
[2023-08-31] MEDS: dilTIAZem HCL 50 MG/10 ML VIAL 15 MG IVPUSH (19:50)
[2023-08-31] MEDS: Gabapentin 300 MG CAPSULE PO (20:57)
[2023-09-01] VITALS (9 sets, daily range): BP systolic 132–148; BP diastolic 48–77; PULSE 69–87; RESP 18–22; TEMP 36.1–37.1; O2SAT 92–96
[2023-09-01] MEDS: methylPREDNISolone Sod Succ 125 MG/2 ML VIAL 40 MG IVPUSH ×2 (04:10→15:44)
--- NOTE | 2023-09-01 04:14 | MHC.PIE ---
Around 1929, pt in rapid aflutter 140s-150s. BP stable at approx. 155 systolic. Pt denies symptoms. A+Ox4. notified. Cardizem IV ordered and given with effect. Around 2039, pt returned to rapid aflutter rate 120s-130s this time endorsing mild, vague chest discomfort. aware. Scheduled amiodarone and Lasix PO given around 2099. Around 2199, pt returned to normal rate. Pt now converted to NSR. MD aware. Pt comfortable in bed, denies any complaints or discomfort, call chilel in reach. Plan of care ongoing.
[2023-09-01] MEDS: levalbuterol HCL 1.25 MG/3 ML VIAL.NEB INHALE ×3 (08:05→20:58)
[2023-09-01] MEDS: Fluticasone/Umeclidinium/Vilanterol 100/62.5/25 BLST.W.DEV 1 PUFF INHALE (08:05)
--- NOTE | 2023-09-01 08:46 | PM.PNCARD ---
Subjective Subjective Date of Service: 09/01/23 Principal diagnosis: COPD exacerbation, hypoxic respiratory failure, PAF Interval history: She states she is feeling better. No new complaints. Review of Systems Review of Systems Yes all other systems are reviewed and are negative Constitutional: Reports as per HPI and Reports no additional constitutional complaints Eyes: Reports as per HPI and Denies no additional eye complaints Denies system reviewed and no additional complaints, except as documented and Reports as per HPI Cardiovascular: Reports as per HPI, Reports no additional cardiovascular complaints, Denies acrocyanosis, Denies cool extremities, Denies chest pain, Denies leg edema, Denies lightheadedness, Denies palpitations and Denies dyspnea Respiratory: Reports as per HPI, Denies no additional respiratory complaints and Denies dyspnea Gastrointestinal: Reports as per HPI and Denies no additional gastrointestinal complaints Genitourinary: Reports as per HPI Musculoskeletal: Reports no additional musculoskeletal complaints and Reports as per HPI Skin/Breast: Reports system reviewed and no additional complaints, except as docu Reports system reviewed and no additional complaints, except as documented and Reports as per HPI Psychiatric: Reports no additional psychiatric complaints and Reports as per HPI Endocrine: Reports no additional endocrine complaints, Reports as per HPI and Denies palpitations Hematologic/Lymphatic: Reports no additional hematologic/lymphatic complaints and Reports as per HPI Allergic/Immunologic: Reports no additional allergic/immunologic complaints and Reports as per HPI Physical Exam Vital Signs: Last Vital Signs Temp 97.4 F 09/01/23 07:16 Pulse 82 09/01/23 08:07 Resp 20 09/01/23 08:07 BP 148/77 H 09/01/23 07:16 Pulse Ox 95 09/01/23 07:16 O2 Del Method Nasal Cannula 09/01/23 07:16 O2 Flow Rate 1.5 09/01/23 07:16 Oxygen Flow Rate 4 08/26/23 17:53 BMI result Body Mass Index 34.7 Const General: comfortable and no acute distress Orientation/consciousness: patient oriented x3 HEENT Other: Unremarkable Head: Yes normal to inspection Neck Neck: Yes normal visual inspection Chest Chest palpation & inspection: normal inspection of the chest Resp Other: Improved from yesterday. Definitely less wheezing. Auscultation: diminished lung sounds Cardio Palpation: normal PMI Heart sounds: S1 normal heart sound present, S2 normal heart sound present, no gallops, no murmurs and no rubs GI Palpation (GI): Soft to palpation Back/Spine/Pelvis Other: unremarkable Skin General skin exam: no rashes or lesions noted Neuro General: patient oriented x3 Extrem General: Yes normal to inspection Psych Mental Status: mental status grossly normal Objective Labs and Meds 08/29/23 07:11 08/29/23 07:11 Progress Note: A&P Assessment and plan (1) Acute and chronic respiratory failure with hypoxia: Status: Acute (2) Atrial fibrillation with RVR: Status: Acute Plan Due to recurrent episodes of atrial fibrillation versus flutter, she was started on amiodarone. Currently, she is in sinus rhythm. We will keep her on amiodarone 400 mg b.i.d. for 2 weeks followed by 200 mg daily. Probably for the foreseeable future. May not need this long-term. Also on diltiazem CD 360 mg daily. Otherwise, continue anticoagulation. Treat respiratory issues appropriately as that is probably what is precipitating atrial fibrillation. Echocardiogram with LVEF of 65-70%. Moderately dilated right ventricle with normal function. Possible early aortic stenosis. Moderately dilated left atrium. Moderate pulmonary hypertension. Discharge planning. Follow-up in clinic. Discussed with Dr. Avalos. Time Spent With Patient Time: Total time managing care of this patient today ____ minutes. Progress Note: Quality Stroke Does the patient have a stroke diagnosis?: No Procedures Date of Service Date of Service: 09/01/23
[2023-09-01] MEDS: Fluticasone Propionate Nasal 16 GM SPRAY 1 SPRAY NOSTRIL-B (09:35)
[2023-09-01] MEDS: 0.9 % Sodium Chloride Flush 3 ML SYRINGE IVFLUSH ×3 (09:36→21:06)
[2023-09-01] MEDS: rOPINIRole HCL 0.25 MG TABLET PO ×2 (09:38→21:06)
[2023-09-01] MEDS: Escitalopram Oxalate 20 MG TABLET PO (09:38)
[2023-09-01] MEDS: dilTIAZem HCL CD 180 MG CAP.ER.24H 360 MG PO (09:39)
[2023-09-01] MEDS: Pravastatin Sodium 40 MG TABLET PO (09:39)
[2023-09-01] MEDS: Famotidine 20 MG TABLET PO (09:39)
[2023-09-01] MEDS: Montelukast Sodium 10 MG TABLET PO (09:40)
[2023-09-01] MEDS: Furosemide 40 MG TABLET PO ×2 (09:40→21:06)
[2023-09-01] MEDS: Apixaban 5 MG TABLET PO ×2 (09:40→21:06)
[2023-09-01] MEDS: Amiodarone HCL 200 MG TABLET 400 MG PO ×2 (09:40→21:06)
--- NOTE | 2023-09-01 10:36 | PM.DS ---
DS: Providers Provider Date of Service: 09/03/23 Date of admission: 08/26/23 21:48 Primary care physician: Lizandro Gibbs MD Consults: 08/26/23 22:38 Consult to Cardiology Routine Consulting Provider: [facility] Cardiovascular Services Reason for consultation: AFib w/RVR, chest pain, ST depressions DS: Diagnosis Discharge Diagnosis (1) Acute and chronic respiratory failure with hypoxia: Status: Acute (2) Atrial fibrillation with RVR: Status: Acute DS: Summary Hospital Course Hospital Course: admission hpi Chief Complaint: SOB, chest pain Pt is an 82-year-old female with a PMH significant for?chronic hypoxemic respiratory failure, COPD on chronic 2 L home O2, paroxysmal AFib on Eliquis, HTN, HLD, venous insufficiency with chronic lower leg edema, and anxiety who presents to the ED with?increasing shortness of breath, difficulty breathing, and chest pain for the past 2-3 days. Patient states symptoms began on Wednesday night when she developed shortness of, PRADO, and cough productive of large amounts of yellowish phlegm. The following day patient also experienced central, nonradiating chest pain throughout most of the day, which the patient describes as feeling like there was a large weight on her chest. Today chest pain has been less pronounced. Had difficulty breathing and became short of breath with the slightest amount of exertion. Patient denies nausea, vomiting, abdominal pain. No fever or chills. Of note, initially patient was in normal sinus rhythm when she presented to the ED, but then went into AFib with RVR after being here for approximately 1-1/2 hours. In the ED pt was tachycardic up to 145, tachypneic up to 28, with elevated temperature of 99.1 degrees, and satting as low as 48% on 4 L NC. Labs were significant for leukocytosis 15.6, H&H of 9.6/32.2, potassium 3.1, bicarb 34, and BNP 343. CXR showed subsegmental atelectasis at the right lung base with small left pleural effusion. Initial EKG demonstrated sinus rhythm of 90 with premature supraventricular complexes with occasional PVCs. Repeat EKG showed AFib with RVR of [address] depressions in anterior lateral leads. Pt was treated with DuoNebs, Solu-Medrol, Mag sulfate, diltiazem 10 mg IV x2 doses, and ceftriaxone. Pt will be admitted to the hospital for treatment further evaluation of acute on chronic hypoxic respiratory failure in the setting of COPD exacerbation with sepsis and AFib with RVR. hospital course: She presented with shortness of breath and chest pain and found to be in afib with RVR, acute on chronic hypoxic respiratory attributed to cod exacerbation. Atrial fibrilation with rapid ventricular response was treated with IV cardizem and a dose of digoxin and ultimately was restarted on oral cardizem 360 mg daily. Unfortunately she continue to have intermittent episodes of tachycardia and cardiology advised adding amiodarone which is recommended at 400 mg twice daily for 2 weeks and to follow by 200 mg daily thereafter. To follow up with cardiology on outpatient basis. At present heart rate is controlled in the 80s and sinus Acute on chronic respiratory failure/acute COPD exacerbation with sepsis--Treated with bronchodilators by Neb, IV steroid and empiric ceftriaxone. CXR showed no PNA, at this time will discontinue Abx. to resume home O2, and has been treated for 7 days of steroid and doesn't need any more. Chest pain/pressure with EKG changes, likely related to AFIB with RVR and has resolved, no further testing per cardiology Dispo:PT recommends STR which she agrees Time Attestation Discharge coordination time: Greater than 30 minutes Quality: Safe Use of Opioids Does Pt have an Active Cancer Diagnosis on the Problem List?: No Quality: Stroke Does the patient have a stroke diagnosis?: No Physical Exam Vital Signs: Vital Signs: Selected Entries 09/03/23 11:01 Temperature 99.1 F Pulse Rate 84 Respiratory Rate 20 Blood Pressure 141/59 H Pulse Oximetry 96 Oxygen Delivery Me thod Nasal Cannula Oxygen Flow Rate 3 General: AO X 3, no acute distress Resp: CTA bilateral CVS: S1,S2,RRR GI: +BS, NT, no distention Skin: No rash Neuro: motor grossly intact Psych: appropriate affect Discharge Plan Discharge Anticipated Discharge Date/Time: 09/03/23 12:25 Patient Disposition: er SNF Discharge Diagnosis: AFIB with RVR, acute on chronic hypoxic respiratory failure, copd exacerbation Referrals: [facility] [Outside] - 1 Week Lizandro Gibbs MD [Primary Care Provider] - 1 Week Discharge Medications: New amiodarone 200 mg tablet See Rx Instructions .ROUTE .COMPLEX Qty: 120 0RF Rx Instructions: take 2 tabs twice daily for 13 days, and after that take 1 tablet daily Continued Trelegy Ellipta 100-62.5-25 mcg blister with device 1 inh inhalation DAILY 30 Days Qty: 60 11RF montelukast 10 mg tablet 10 mg PO DAILY Qty: 30 11RF albuterol sulfate [ProAir HFA] 90 mcg/actuation HFA aerosol inhaler 2 puff inhalation Q4-6H PRN (Reason: shortness of breath or wheezing) Qty: 8.5 0RF furosemide 40 mg tablet 40 mg PO BID Eliquis 5 mg tablet 5 mg PO BID gabapentin 300 mg capsule 300 mg PO BEDTIME diltiazem HCl 180 mg capsule,extended release 24hr 360 mg PO DAILY penicillin V potassium 500 mg tablet 500 mg PO Q6H Rx Instructions: one dose left alprazolam 0.25 mg tablet 0.25 mg PO DAILY PRN (Reason: Anxiety) citalopram 20 mg tablet 40 mg PO DAILY ropinirole 0.25 mg tablet 0.25 mg PO BID ibuprofen 800 mg tablet 800 mg PO TID PRN (Reason: Pain) fluticasone propionate [Flonase Allergy Relief] 50 mcg/actuation [place],Suspension 50 mcg INTRANASAL DAILY PRN (Reason: allergies) albuterol sulfate 2.5 mg /3 mL (0.083 %) solution for nebulization 2.5 mg inhalation Q4-6H PRN (Reason: Wheezing) famotidine 20 mg tablet 20 mg PO DAILY@0800 pravastatin 40 mg tablet 40 mg PO DAILY@0800 (DME) nebulizers Misc See Rx Instructions .Route Rx Instructions: As directed (DME) Oxygen Home Use Kit See Rx Instructions .Route Rx Instructions: As directed turmeric root extract 500 mg capsule 500 mg PO DAILY@0800 codeine-guaifenesin 10-100 mg/5 mL liquid 10 ml PO Q6H PRN (Reason: cough) 10 Days Qty: 300 0RF Discharge Orders: Discharge Order (Routine); Ordered 09/03/23 Ordered By: Oh Avalos Diet: Advance to usual diet Activity on Discharge: As tolerated Stand Alone Forms: Patient Portal Discharge page Care Plan Goals: Full recovery from copd, afib with rvr Health Concerns: atrial fibirilation with rapid ventricular response, copd exacerbation Plan of Treatment: continue using inhalers as before continue oxygen as before for atrila fibrilation, take amiodarone 400 mg twice daily for 11 more days, then 200 mg daily after that follow up with your Doctor in a week, folloow up with your heart doctor continue oxygen with goal of O2 sat 88 to 92% Assessment: See above Patient Instructions: Amiodarone (By mouth)
--- NOTE | 2023-09-01 11:04 | W.MHC.F2F ---
Service Date Service Date: 09/01/23 Encounter Date of encounter: 09/01/23 Reasons for Services Signs and symptoms assessed: weakness post hospitalization Reason for [facility]: medication management and teach disease management Reason for physical therapy: therapeutic exercises and energy conservation Homebound: Leaving the home is medically contraindicated at this time without the asist of a device and/or another person due th the listed conditions above and below. Reason homebound: fall risk related to blood pressure changes and shortness of breath with minimal effort Homebound supporting statement: homebound due to chronic respiratory failure with shortness of breath with minimal effort and thefore needs the assistance of another person Certification: Based on the above findings, I certify that this patient is confined to the home and needs intermittent [facility] care, physical therapy and/or speech therapy, or continues to need occupational therapy. The patient is under my care, and I have initiated the establishment of the plan of care. The patient will be followed by a physician who will periodically review the plan of care. Time Spent With Patient Time: Total time managing care of this patient today ____ minutes.
--- NOTE | 2023-09-01 13:30 | MHC.CM.PN ---
Addendum entered by Yojana Perez 09/01/23 15:22: Pt accepted by [facility] when she is DC. Addendum entered by Yojana Perez 09/01/23 15:18: Pt DC cancelled due to requiring higher level of O2 with exersion. Original Note: Second IMM completed by pt. she has been cleared to go home, her daughter will pick her up today. Referrals in for [facility], none accepted due to ins.
--- NOTE | 2023-09-01 14:39 | P.PNIM_ITS ---
Subjective Subjective Date of Service: 09/01/23 Interval History: f/u on afib with rvr, copd exacerbaion overall is feeling better, HR is controlled, however O2 sat drops signficantly with mid activity Physical Exam 2 Vital Signs: Vital Signs: Last Vital Signs Temp 98.8 F 09/01/23 10:51 Pulse 87 09/01/23 10:51 Resp 20 09/01/23 10:51 BP 138/48 L 09/01/23 10:51 Pulse Ox 96 09/01/23 10:51 O2 Del Method Nasal Cannula 09/01/23 10:51 O2 Flow Rate 2 09/01/23 10:51 Oxygen Flow Rate 4 08/26/23 17:53 BMI result Body Mass Index 34.7 General: AO X 3, no acute distress Resp: decrease BS at CVS: S1,S2,RRR GI: +BS, NT, no distention Skin: No rash Neuro: motor grossly intact Psych: appropriate affect Objective Data Active Medications Acetaminophen (Acetaminophen 325 Mg Tablet) 650 mg PO Q6H PRN PRN Reason: Pain, Mild (Pain Scale 1-3) Last Admin: 08/28/23 21:48 Dose: 650 mg Documented By: ANNA Amiodarone HCl (Amiodarone Hcl 200 Mg Tablet) 400 mg PO BID [facility] Last Admin: 09/01/23 09:40 Dose: 400 mg Documented By: ILSA Apixaban (Apixaban 5 Mg Tablet) 5 mg PO BID [facility] Last Admin: 09/01/23 09:40 Dose: 5 mg Documented By: ILSA Diltiazem HCl (Diltiazem Hcl Cd 180 Mg Cap.Er.24h) 360 mg PO DAILY [facility]; Protocol Last Admin: 09/01/23 09:39 Dose: 360 mg Documented By: ILSA Docusate Sodium (Docusate Sodium 100 Mg Capsule) 100 mg PO DAILY PRN PRN Reason: Constipation Escitalopram Oxalate (Escitalopram Oxalate 20 Mg Tablet) 20 mg PO DAILY [facility] Last Admin: 09/01/23 09:38 Dose: 20 mg Documented By: ILSA Famotidine (Famotidine 20 Mg Tablet) 20 mg PO DAILY@0800 [facility] Last Admin: 09/01/23 09:39 Dose: 20 mg Documented By: ILSA Fluticasone Propionate (Fluticasone Propionate Nasal 16 Gm [place]) 1 spray NOSTRIL-B DAILY PRN PRN Reason: allergies Last Admin: 09/01/23 09:35 Dose: 1 spray Documented By: ILSA Fluticasone/Umeclidinium/Vilanterol (Fluticasone/Umeclidinium/Vilanterol 100/62.5/25 Blst.W.Dev) 1 puff INHALE RDAILY [facility] Last Admin: 09/01/23 08:05 Dose: 1 puff Documented By: ALEX Furosemide (Furosemide 40 Mg Tablet) 40 mg PO BID [facility]; Protocol Last Admin: 09/01/23 09:40 Dose: 40 mg Documented By: ILSA Gabapentin (Gabapentin 300 Mg Capsule) 300 mg PO BEDTIME [facility] Last Admin: 08/31/23 20:57 Dose: 300 mg Documented By: STEPHANY Guaifenesin/Dextromethorphan (Guaifenesin Dm 200/20/10 Ml 10 Ml Syrup) 10 ml PO Q4H PRN PRN Reason: Cough Last Admin: 08/31/23 20:54 Dose: 10 ml Documented By: STEPHANY Ceftriaxone Sodium 1 gm/ (Sodium Chloride) 50 mls @ 100 mls/hr IV Q24H [facility] Last Infusion: 08/31/23 16:54 Dose: Infused Documented By: DAHLIA Diltiazem HCl 125 mg/ Sodium (Chloride) 125 mls @ 0 mls/hr IVCONT .Q0M [facility]; Protocol Last Titration: 08/30/23 02:21 Dose: 0 mg/hr, 0 mls/hr Documented By: BETTY Levalbuterol HCl (Levalbuterol Hcl 1.25 Mg/3 Ml Vial.Neb) 1.25 mg INHALE RQ4H WHILE AWAKE [facility] Last Admin: 09/01/23 11:45 Dose: Not Given Documented By: SHAYE Non-Admin Reason: Patient Refused Melatonin (Melatonin 3 Mg Tablet) 6 mg PO BEDTIME PRN PRN Reason: Insomnia Methylprednisolone Sodium Succinate (Methylprednisolone Sod Succ 125 Mg/2 Ml Vial) 40 mg IVPUSH Q12H [facility] Last Admin: 09/01/23 04:10 Dose: 40 mg Documented By: STEPHANY Montelukast Sodium (Montelukast Sodium 10 Mg Tablet) 10 mg PO DAILY [facility] Last Admin: 09/01/23 09:40 Dose: 10 mg Documented By: ILSA Pravastatin Sodium (Pravastatin Sodium 40 Mg Tablet) 40 mg PO DAILY@0800 [facility] Last Admin: 09/01/23 09:39 Dose: 40 mg Documented By: ILSA Ropinirole HCl (Ropinirole Hcl 0.25 Mg Tablet) 0.25 mg PO BID [facility] Last Admin: 09/01/23 09:38 Dose: 0.25 mg Documented By: ILSA Sodium Chloride (0.9 % Sodium Chloride Flush 3 Ml Syringe) 3 ml IVFLUSH QSHIFT [facility] Last Admin: 09/01/23 09:36 Dose: 3 ml Documented By: ILSA Labs 08/29/23 07:11 08/29/23 07:11 Microbiology Microbiology Results: Microbiology 08/26/23 18:23 Blood Culture - Final Blood - Venous No growth after 5 days. 08/26/23 18:09 Blood Culture - Final Blood - Venous No growth after 5 days. Assessment and Plan (1) Acute and chronic respiratory failure with hypoxia: Status: Acute (2) COPD exacerbation: Status: Acute Plan Pt is an 82-year-old female with a PMH significant for?chronic hypoxemic respiratory failure, COPD on chronic 2 L home O2, paroxysmal AFib on Eliquis, HTN, HLD, venous insufficiency with chronic lower leg edema, and anxiety who presents to the ED with?increasing shortness of breath, difficulty breathing, and chest pain for the past 2-3 days. Pt will be admitted to the hospital for treatment further evaluation of acute on chronic hypoxic respiratory failure in the setting of COPD exacerbation with sepsis and AFib with RVR. Acute on chronic respiratory failure/acute COPD exacerbation with sepsis--improved, no pna on cXR. Has been treated for 6 days with antibiotics, repeating cxr d/t O2 sat droping with activit, chexk BNP AFib with RVR required IV cardizem and dig-- amiodarone added yesterday, now sinus R, continue oral Cardizem, eliquis 3.Chest pain/pressure with EKG changes, no further testing per cardiology Full code Eliquis need for inpatient: med adjustement for afib with rvr, hypoxia with high O2 requirement Quality Stroke Does the patient have a stroke diagnosis?: No VTE Prior VTE?: No VTE Risk Level:: Medical - moderate - high VTE Device Contraindication: Treatment Not Indicated VTE Drug Contraindication: N/A - Med Ordered
[2023-09-01] MEDS: cefTRIAXone sodium 1 GM in 0.9 % Sodium Chloride 50 ML IV (14:51)
[2023-09-01] MEDS: guaiFENesin DM 200/20/10 ML 10 ML SYRUP PO ×2 (14:53→21:06)
[2023-09-01 15:23] LABS: B Type Natriuretic Peptide 383 pg/mL (<100)
[2023-09-01] MEDS: Gabapentin 300 MG CAPSULE PO (21:06)
[2023-09-01] MEDS: Melatonin 3 MG TABLET 6 MG PO (21:06)
[2023-09-02] VITALS (11 sets, daily range): BP systolic 125–151; BP diastolic 52–67; PULSE 80–88; RESP 16–20; TEMP 36.3–37.1; O2SAT 89–98
--- NOTE | 2023-09-02 00:28 | PC.NURSE ---
Assumed care of patient at 19:00. Pt is A&Ox4. Pt was on 2L nc (baseline/home o2) on assuming care, spo2 maintained at rest. [employer] Plant Grinder attempted to assist pt to bedside commode in evening ~20:30 when noted pt desatted to 76% on her 2L during this activity. Pt denied SOB and stated This is how I am at home, I'm fine ; breathing was even and unlabored without distress; pt placed on NRB with quick improvement to low/mid 90's %. hydroelectric station operator chief and covering Dr. Johnston notified of desats with activity requiring temporary NRB; Respiratory notified and requested to bedside for treatment. CXR was already obtained earlier in the day (see report). written order for bedrest overnight while awaiting previously ordered home o2 eval, tentatively tomorrow. Pt transitioned back to 2L nc once returned to bed from commode, spo2 maintained low-mid 90's since, no further incidence. Breathing remains even and unlabored without distress while in bed. Purewick was placed while on bedrest as pt is on lasix. Call chilel is within reach and safety measures in place. Plan of care ongoing and discussed with patient.
[2023-09-02] MEDS: methylPREDNISolone Sod Succ 125 MG/2 ML VIAL 40 MG IVPUSH (05:16)
[2023-09-02] MEDS: Fluticasone/Umeclidinium/Vilanterol 100/62.5/25 BLST.W.DEV 1 PUFF INHALE (08:04)
[2023-09-02] MEDS: levalbuterol HCL 1.25 MG/3 ML VIAL.NEB INHALE ×3 (08:04→20:21)
[2023-09-02] MEDS: Furosemide 40 MG TABLET PO ×2 (08:26→22:16)
[2023-09-02] MEDS: Amiodarone HCL 200 MG TABLET 400 MG PO ×2 (08:26→22:16)
[2023-09-02] MEDS: Apixaban 5 MG TABLET PO ×2 (08:26→22:16)
[2023-09-02] MEDS: Famotidine 20 MG TABLET PO (08:27)
[2023-09-02] MEDS: rOPINIRole HCL 0.25 MG TABLET PO ×2 (08:27→22:16)
[2023-09-02] MEDS: dilTIAZem HCL CD 180 MG CAP.ER.24H 360 MG PO (08:27)
[2023-09-02] MEDS: Montelukast Sodium 10 MG TABLET PO (08:27)
[2023-09-02] MEDS: 0.9 % Sodium Chloride Flush 3 ML SYRINGE IVFLUSH ×2 (08:28→15:19)
[2023-09-02] MEDS: Escitalopram Oxalate 20 MG TABLET PO (08:28)
[2023-09-02] MEDS: Pravastatin Sodium 40 MG TABLET PO (08:28)
--- NOTE | 2023-09-02 11:16 | HO.PM.IMPN ---
Subjective Subjective Date of Service: 09/02/23 Interval History: f/u on afib with rvr, copd exacerbaion She still have cough, sob with exertion, and O2 drops signficantly Physical Exam Vital Signs: Vital Signs: Last Vital Signs Temp 98.7 F 09/02/23 07:59 Pulse 85 09/02/23 10:12 Resp 20 09/02/23 08:07 BP 136/62 09/02/23 07:59 Pulse Ox 89 L 09/02/23 10:12 O2 Del Method Nasal Cannula 09/02/23 07:59 O2 Flow Rate 2 09/02/23 07:59 Oxygen Flow Rate 4 08/26/23 17:53 BMI result Body Mass Index 34.7 General: AO X 3, no acute distress Resp: decrease BS at CVS: S1,S2, iregular iregula GI: +BS, NT, no distention Skin: No rash Neuro: motor grossly intact Psych: appropriate affect Objective Data Active Medications Acetaminophen (Acetaminophen 325 Mg Tablet) 650 mg PO Q6H PRN PRN Reason: Pain, Mild (Pain Scale 1-3) Last Admin: 08/28/23 21:48 Dose: 650 mg Documented By: ANNA Albuterol/Ipratropium (Albuterol/Iprat 2.5/0.5mg 3 Ml Ampul.Neb) 3 ml INHALE Q4H PRN PRN Reason: Wheezing Amiodarone HCl (Amiodarone Hcl 200 Mg Tablet) 400 mg PO BID [facility] Last Admin: 09/02/23 08:26 Dose: 400 mg Documented By: ILSA Apixaban (Apixaban 5 Mg Tablet) 5 mg PO BID [facility] Last Admin: 09/02/23 08:26 Dose: 5 mg Documented By: ILSA Diltiazem HCl (Diltiazem Hcl Cd 180 Mg Cap.Er.24h) 360 mg PO DAILY [facility]; Protocol Last Admin: 09/02/23 08:27 Dose: 360 mg Documented By: ILSA Docusate Sodium (Docusate Sodium 100 Mg Capsule) 100 mg PO DAILY PRN PRN Reason: Constipation Escitalopram Oxalate (Escitalopram Oxalate 20 Mg Tablet) 20 mg PO DAILY [facility] Last Admin: 09/02/23 08:28 Dose: 20 mg Documented By: ILSA Famotidine (Famotidine 20 Mg Tablet) 20 mg PO DAILY@0800 [facility] Last Admin: 09/02/23 08:27 Dose: 20 mg Documented By: ILSA Fluticasone Propionate (Fluticasone Propionate Nasal 16 Gm [place]) 1 spray NOSTRIL-B DAILY PRN PRN Reason: allergies Last Admin: 09/01/23 09:35 Dose: 1 spray Documented By: ILSA Fluticasone/Umeclidinium/Vilanterol (Fluticasone/Umeclidinium/Vilanterol 100/62.5/25 Blst.W.Dev) 1 puff INHALE RDAILY [facility] Last Admin: 09/02/23 08:04 Dose: 1 puff Documented By: ALEX Furosemide (Furosemide 40 Mg Tablet) 40 mg PO BID [facility]; Protocol Last Admin: 09/02/23 08:26 Dose: 40 mg Documented By: ILSA Gabapentin (Gabapentin 300 Mg Capsule) 300 mg PO BEDTIME [facility] Last Admin: 09/01/23 21:06 Dose: 300 mg Documented By: CHUY Guaifenesin/Dextromethorphan (Guaifenesin Dm 200/20/10 Ml 10 Ml Syrup) 10 ml PO Q4H PRN PRN Reason: Cough Last Admin: 09/01/23 21:06 Dose: 10 ml Documented By: CHUY Diltiazem HCl 125 mg/ Sodium (Chloride) 125 mls @ 0 mls/hr IVCONT .Q0M [facility]; Protocol Last Titration: 08/30/23 02:21 Dose: 0 mg/hr, 0 mls/hr Documented By: BETTY Levalbuterol HCl (Levalbuterol Hcl 1.25 Mg/3 Ml Vial.Neb) 1.25 mg INHALE RQ4H WHILE AWAKE [facility] Last Admin: 09/02/23 08:04 Dose: 1.25 mg Documented By: ALEX Melatonin (Melatonin 3 Mg Tablet) 6 mg PO BEDTIME PRN PRN Reason: Insomnia Last Admin: 09/01/23 21:06 Dose: 6 mg Documented By: CHUY Montelukast Sodium (Montelukast Sodium 10 Mg Tablet) 10 mg PO DAILY [facility] Last Admin: 09/02/23 08:27 Dose: 10 mg Documented By: ILSA Pravastatin Sodium (Pravastatin Sodium 40 Mg Tablet) 40 mg PO DAILY@0800 [facility] Last Admin: 09/02/23 08:28 Dose: 40 mg Documented By: ILSA Ropinirole HCl (Ropinirole Hcl 0.25 Mg Tablet) 0.25 mg PO BID [facility] Last Admin: 09/02/23 08:27 Dose: 0.25 mg Documented By: ILSA Sodium Chloride (0.9 % Sodium Chloride Flush 3 Ml Syringe) 3 ml IVFLUSH QSHIFT [facility] Last Admin: 09/02/23 08:28 Dose: 3 ml Documented By: ILSA Labs 08/29/23 07:11 08/29/23 07:11 Labs: Laboratory Results - last 24 hr 09/01/23 14:54 B-Natriuretic Peptide 383 H Assessment and Plan (1) Acute and chronic respiratory failure with hypoxia: Status: Acute (2) COPD exacerbation: Status: Acute Plan Pt is an 82-year-old female with a PMH significant for?chronic hypoxemic respiratory failure, COPD on chronic 2 L home O2, paroxysmal AFib on Eliquis, HTN, HLD, venous insufficiency with chronic lower leg edema, and anxiety who presents to the ED with?increasing shortness of breath, difficulty breathing, and chest pain for the past 2-3 days. Pt will be admitted to the hospital for treatment further evaluation of acute on chronic hypoxic respiratory failure in the setting of COPD exacerbation with sepsis and AFib with RVR. Acute on chronic respiratory failure/acute COPD exacerbation with sepsis--improved, no pna on CXR. Has been treated for 6 days with antibiotics--stop Repeat CXR 09/01 no PNA. DC IV steroid, and Prednisone barbi for no more than [address] chest if persistent hypoxa. Repeat home O2 eval AFib with RVR required IV cardizem and dig-- now controlled on amiodarone added 400 bid x 2 weeks, then 200 daily per cardiology recommendation, continue PO cardizem, Continue eliquis Chronic heart failure--BNP stable, no leg edema --continue oral Lasix 40 bid 3.Chest pain/pressure with EKG changes, no further testing per cardiology Full code Eliquis need for inpatient: med adjustement for afib with rvr, hypoxia with high O2 requirement PT eval for possible dc Quality Stroke Does the patient have a stroke diagnosis?: No VTE Prior VTE?: No VTE Risk Level:: Medical - moderate - high VTE Device Contraindication: Treatment Not Indicated VTE Drug Contraindication: N/A - Med Ordered
[2023-09-02] MEDS: guaiFENesin DM 200/20/10 ML 10 ML SYRUP PO ×2 (15:19→22:19)
[2023-09-02] MEDS: Gabapentin 300 MG CAPSULE PO (22:16)
[2023-09-03] VITALS (7 sets, daily range): BP systolic 140–142; BP diastolic 55–59; PULSE 67–97; RESP 19–20; TEMP 36.5–37.3; O2SAT 88–99
[2023-09-03] MEDS: 0.9 % Sodium Chloride Flush 3 ML SYRINGE IVFLUSH ×2 (01:30→09:42)
[2023-09-03] MEDS: Acetaminophen 325 MG TABLET 650 MG PO ×2 (02:44→12:23)
[2023-09-03] MEDS: Fluticasone/Umeclidinium/Vilanterol 100/62.5/25 BLST.W.DEV 1 PUFF INHALE (08:54)
[2023-09-03] MEDS: Escitalopram Oxalate 20 MG TABLET PO (09:41)
[2023-09-03] MEDS: Montelukast Sodium 10 MG TABLET PO (09:41)
[2023-09-03] MEDS: rOPINIRole HCL 0.25 MG TABLET PO (09:41)
[2023-09-03] MEDS: Furosemide 40 MG TABLET PO (09:41)
[2023-09-03] MEDS: Pravastatin Sodium 40 MG TABLET PO (09:42)
[2023-09-03] MEDS: dilTIAZem HCL CD 180 MG CAP.ER.24H 360 MG PO (09:42)
[2023-09-03] MEDS: Apixaban 5 MG TABLET PO (09:42)
[2023-09-03] MEDS: Amiodarone HCL 200 MG TABLET 400 MG PO (09:42)
[2023-09-03] MEDS: Famotidine 20 MG TABLET PO (09:42)
[2023-09-03] MEDS: Fluticasone Propionate Nasal 16 GM SPRAY 1 SPRAY NOSTRIL-B (09:47)
[2023-09-03] MEDS: guaiFENesin DM 200/20/10 ML 10 ML SYRUP PO (09:48)
--- NOTE | 2023-09-03 11:04 | MHC.CM.PN ---
Pt has been medically cleared, she will go to [facility] for pulmonary rehab today via ambulance.
== END 2023-09-03 04:00 | disposition skilled nursing facility (03) | DRG 871 ==
LOC: HO.ED 19:35 → HO.EDOVER 21:57 → HO.IMC 08-27 15:28
PROVIDERS: Nurse Practitioner Family; Admitting Provider Student in an Organized Health Care Education/Training Program; Emergency Provider Emergency Medicine; PCP Internal Medicine; Visit Provider Internal Medicine
DX: A41.9 Sepsis, unspecified organism (principal); J96.21 Acute and chronic respiratory failure with hypoxia; J44.1 Chronic obstructive pulmonary disease with (acute) exacerbation; I47.19 Other supraventricular tachycardia; I11.0 Hypertensive heart disease with heart failure; I50.9 Heart failure, unspecified; I27.81 Cor pulmonale (chronic); E87.6 Hypokalemia; I48.0 Paroxysmal atrial fibrillation; I35.0 Nonrheumatic aortic (valve) stenosis; K21.9 Gastro-esophageal reflux disease without esophagitis; G62.9 Polyneuropathy, unspecified; G25.81 Restless legs syndrome; Z20.822 Contact with and (suspected) exposure to COVID-19; Z99.81 Dependence on supplemental oxygen; Z79.01 Long term (current) use of anticoagulants; Z79.51 Long term (current) use of inhaled steroids; Z79.899 Other long term (current) drug therapy
CPT/HCPCS: 0241U; 36415; 71045; 80048; 80076; 83605; 83735; 83880; 84484; 85025; 85027; 85610; 87040; 93005; 93306; 94640; 97162; 99285; J0456; J0696; J1160; J2920; J2930; J3475; Q9957

== ENCOUNTER → 2023-08-26 17:42 | Outpatient (BNV) | payer MEDICARE, SELFPAY | PROVIDERS: Admitting Provider Student in an Organized Health Care Education/Training Program; Emergency Provider Emergency Medicine; PCP Internal Medicine; Visit Provider Internal Medicine Cardiovascular Disease | DX: R07.9 Chest pain, unspecified (principal); I49.3 Ventricular premature depolarization | CPT/HCPCS: 93010 ==

== ENCOUNTER 2023-08-26 21:48 | Outpatient (BNV) | payer MEDICARE, SELFPAY | END 2023-08-31 08:45 | PROVIDERS: Admitting Provider Student in an Organized Health Care Education/Training Program; Emergency Provider Emergency Medicine; PCP Internal Medicine; Visit Provider Internal Medicine | DX: I48.0 Paroxysmal atrial fibrillation (principal); R07.9 Chest pain, unspecified | CPT/HCPCS: 93010 ==

== ENCOUNTER 2023-08-26 21:48 | Outpatient (BNV) | payer MEDICARE, SELFPAY | END 2023-08-27 07:00 | PROVIDERS: Admitting Provider Student in an Organized Health Care Education/Training Program; Emergency Provider Emergency Medicine; PCP Internal Medicine; Visit Provider Internal Medicine Cardiovascular Disease | DX: I36.1 Nonrheumatic tricuspid (valve) insufficiency (principal); I34.81 Nonrheumatic mitral (valve) annulus calcification; R94.31 Abnormal electrocardiogram [ECG] [EKG] | CPT/HCPCS: 93306 ==

== ENCOUNTER 2023-08-26 21:48 | Outpatient (BNV) | payer MEDICARE, SELFPAY | END 2023-08-29 17:00 | PROVIDERS: Admitting Provider Student in an Organized Health Care Education/Training Program; Emergency Provider Emergency Medicine; PCP Internal Medicine; Visit Provider Internal Medicine | DX: R00.9 Unspecified abnormalities of heart beat (principal) | CPT/HCPCS: 93010 ==

== ENCOUNTER → 2023-08-26 21:48 | Outpatient (BNV) | payer MEDICARE, SELFPAY | PROVIDERS: Admitting Provider Student in an Organized Health Care Education/Training Program; Emergency Provider Emergency Medicine; PCP Internal Medicine; Visit Provider Internal Medicine Cardiovascular Disease | DX: J96.21 Acute and chronic respiratory failure with hypoxia (principal); I48.91 Unspecified atrial fibrillation; R07.9 Chest pain, unspecified | CPT/HCPCS: 99222; 99233 ==

== ENCOUNTER → 2023-08-26 21:48 | Outpatient (BNV) | payer MEDICARE, SELFPAY | PROVIDERS: Admitting Provider Student in an Organized Health Care Education/Training Program; Emergency Provider Emergency Medicine; PCP Internal Medicine; Visit Provider Hospitalist | DX: J96.21 Acute and chronic respiratory failure with hypoxia (principal); I48.91 Unspecified atrial fibrillation | CPT/HCPCS: 99223; 99232; 99233; 99238; 99499; G0180 ==

== ENCOUNTER 2023-09-23 14:03 | Outpatient (AMB) | payer MEDICARE, SELFPAY ==
[2023-09-23 14:08] VITALS: BMI 31.3
--- NOTE | 2023-09-23 14:08 | A.OFFVIS_ITS ---
Intake Vital Signs 09/23/23 14:08 Height 5 ft 2 in Weight 171 lb BMI 31.3 Intake Visit Reasons: COPD Pile Driving Nozzleman Required: No Allergies No Known Allergies Allergy (Verified 09/23/23 14:09) HPI HPI Comments History of Present Illness Details The patient is a 82 -year-old woman with known COPD also chronic respiratory failure on oxygen. Apparently she was in usual state health until recently her became sick with RSV and was admitted to the [facility], [place]. For the last couple weeks she has had worsening respiratory symptoms. She has been evaluated twice by her primary care doctor. She has been given antibiotics and prednisone. However, she continues to worsen. Today she has been using 4 L pulse on her oxygen device. She is using a mask and she was noted to be 88%. However, the patient is not activating the oxygen based on the fact that she her nasal passages are congested and she is breathing through her mouth. Therefore I switched her oxygen to continues 2 L and she maintain a pulse ox of 92%. I explained to the patient that she is to avoid using the conserving device valve at this time. The patient was provided additional antibiotics and prednisone. If she is no better in 24-48 hours. she has to go to the hospital. However, if she worsens she also she go the hospital. ??? 08/04/2022 the patient is here for a sick visit. Apparently she has been having issues with heart. She was admitted briefly at [facility] and then here [facility] found to have AFib with rapid ventricular response. She was placed on Eliquis and ultimately had her calcium channel sary increase for rate control. The patient has been having worsening cough however. Her cough is persistent and moderate to severe. At times is productive of yellow phlegm. Having hard time sleeping because of the cough. She has tried multiple [id number]-[id number] remedies without any significant improvement. On examination seems like she has a good amount of purulent secretions that are coming down her posterior pharynx suggesting a component of sinusitis. the patient also had chest x-rays while being in the hospital July demonstrating some degree of atelectasis and minimal pleural effusion. We talked about her medications including lisinopril that is likely not helping with her cough. Although as part of the primary cause of the cough. At this point based on the severity of the cough will be reasonable to switch her to an ARB. 09/22/2022 the patient is here for pulmon castillo follow-up visit. She is finally feeling better. The cough significantly better. She still has a productive cough and brings up phlegm. We did talk about performing CPT with flutter valve. She does have 1 available and she can use it twice a day. Explained to her that she is always going to bring up some phlegm. At this time the azithromycin 3 times a week seems to be helpful. Coming off the lisinopril is also helpful. The Trelegy inhaler she is using once a day with good effect. Sometimes it makes her cough. I did instruct her to she is taking little softer so she does not irritate too much to the upper airway. The AFib seems to be in good control. We did review her x-ray from July 10 with demonstrating some minimal atelectasis and scoliosis. And at this point will plan to follow-up in 4 months. If the patient has any difficulties prior to that she is to call the office for an earlier evaluation. 11/19/2022 the patient is here for a pulmonary follow-up visit. The patient is feeling better. Her Wilfred inhibitor was stopped and her cough is improved. Although she still has a little productive phlegm. It does bother her. Does not seen significant improvement with the azithromycin. Will go ahead and stop it. I did request a sputum culture will try couple weeks of doxycycline to see if we can clear any significant mucus. Recently she did have a CT scan of the chest done beginning of November 2022 in a personally reviewed it. She does have some moderate degree amount of emphysema and also scoliosis. She also has atelectasis primarily in the left hemithorax there is a segment that appears to be nearly completely obstructed. If the patient continues symptomatic consider bronchoscopy to assess that airway to make sure there was no endobronchial blockage. But at this point clinically the patient is better overall and will try to minimize any semi invasive procedures. Will reassess in a few months. 01/20/2023 the patient is here for pulmonary follow-up visit. Overall the patient is feeling better. She did complete the antibiotics and the chest physical therapy. She continues to have dyspnea on exertion. She also has some fluid overload issues. Her x-ray she had back in July she did have small pleural effusions as well. The patient will benefit from additional diuresis specially with pulmonary hypertension. Holding off on any invasive or semi- invasive diagnostic interventions at this time. She continues use the oxygen with good effect. She continues use her respiratory therapy as well. Will go ahead and prescribe Lasix that she can use for 3-5 days and will monitor closely her weight and her lower extremity edema. If the patient continues use the diuretics she will need to have blood work to monitor her electrolytes and kidn ey function. 04/29/2023 the patient is here for sick visit. The patient apparently was in his usual state health until sometime in the beginning of April when she started developing worsening respiratory symptoms. The patient was brought to the [facility] ER where she was evaluated. She was admitted to the hospital with COPD exacerbation. She was treated with steroids antibiotics and also respiratory treatments. The patient was able to be discharged. However, she states that upon discharge her cough got worse. She started developing worse chest congestion and also sinus congestion. Moderate severity. She is been using her oxygen more and had to increase the dose. She is been having hard time. She has been on prednisone tapering down currently on 20 mg. on exam she is very rhonchorous with a prolonged expiratory phase and wheezing. She was given a Xopenex and hypertonic saline nebulizer treatment in a sputum culture was able to be sent to the laboratory. In the meantime the patient appears to have a postviral bacterial infection in the lower respiratory now so likely the upper respiratory tract. Therefore, will start her on broad-spectrum antib iotics and will also extend her prednisone use. If the patient is no better she will come in for an x-ray and she will call the office. However, if her symptoms worsen she may need to go back to the ER. 05/13/2023 the patient is here for pulmon castillo follow-up visit. She is no better. She is having still significant cough. Productive in nature. Has a hard time sleeping because of the cough. Moderate severity. Feels is more over sinuses now. She does have Afrin nasal spray that she can use to 5 days. She did complete the prednisone. She also completed the Vantin. Based on the fact that she is still very congested will go ahead and start her on levofloxacin. The patient can start his low-dose prednisone as well to try to help with the inflammation. And will follow-up with her after her CT scan. The patient develops any worsening symptoms she can always call and we can consider bronchoscopy. She is also complaining of some pleuritic chest discomfort. Currently better. I did advise that if her discomfort returns or if it worsens that she should go to the ER for further evaluation. 07/22/2023 the patient has a telehealth v isit today. Her family sick with COVID she does not have COVID as of yet but taking precautions. She is still complaining of productive cough. Her cough is yellowish and green in color. Moderate severity. Sometimes she gets anxious because of the burden of mucus. We did start him on Augmentin but has not seen any significant improvement after several days. She has not finding that she is wheezing at this time. Therefore will hold off on any prednisone. She did respond better to Levaquin in the past. She may have an enteric resistant organism. We did request a sputum culture but she was not able to perform just yet. Will go ahead and switch her again to Levaquin to see if she can feel better. If not will definitely have to get a sputum culture. We did review her recent CT scan of the chest that she had demonstrating interval improvement in the left upper lobe pulmonary nodule going from 9 mm spiculated to now 4.8 mm nodule. This is very reassuring. She does have a new density in the left lower lobe which is not too concerning likely some degree of atelectasis but is definitely new will need follow-up. The patient will return in a couple months to see how her progresses and otherwise will call sooner if her symptoms are not any better. 09/23/2023 the patient is here for [facility]. She was recently hospitalized with chest pain and shortness of breath. She was found to have atrial fibrillation with rapid ventricular response. She was placed on amiodarone. The patient did have a chest x-ray done demonstrating hyperinflated lungs and also a question of a broken lead. She will follow-up with cardiology for that. In the meantime she has been on the conserving device tank. Although does not always breathe through her nose and is not enough oxygen. She was found to be hypoxic on arrival. She was down to the mid 80s on 3-4 L pulse. Therefore she was ambulated and the patient needs to be on continues oxygen. Will go ahead and let her [employer] company known to provide her with oxygen times with a regular valve so she can use 2 L at rest and 3 L with activity to maintain a pulse ox above 90%. She continues with respiratory therapy. The patient does have a productive cough. Unfortunately we can not place her on macrolide therapy because she is on amiodarone. Therefore will start her on doxycycline daily as a prophylactic dose to see if we can treat her chronic bronchitis. Will follow-up in 6-8 weeks. [facility] Medical History (Updated 09/11/23 @ 00:01 by Juan Worthy) PAF (paroxysmal atrial fibrillation) Atrial fibrillation with rapid ventricular response Lung nodule Pleural effusion Pulmonary hypertension Mitral annular calcification Aortic valve calcification Cough Sinusitis Chronic respiratory failure COPD (chronic obstructive pulmonary disease) Pneumonia Surgical History No pertinent past surgical history Family History Brother Myocardial infarction Father Stroke Social History Household Members: Children Household Members Other:: Daughter and family Housing: House Do you presently have visiting nurse or other home services: Yes (meals on wheels) Alcohol intake: never Patient Tobacco Use Status: Never used Tobacco Tobacco use type: Cigarette e-Cigarette/Vaping Use: Never Used Second Hand Smoke Exposure: No Advance Directives Date on File: 06/21/23 service: No Current occupational status: retired Physical Exam Vital Signs: BMI result Body Mass Index 31.3 Assessment & Plan Assessment & Plan (1) COPD (chronic obstructive pulmonary disease): Code(s): J44.9 - Chronic obstructive pulmonary disease, unspecified (2) Chronic respiratory failure: Code(s): J96.10 - Chronic respiratory failure, unspecified whether with hypoxia or hypercapnia Qualifiers: Respiratory failure complication: hypoxia Qualified Code(s): J96.11 - Chronic respiratory failure with hypoxia (3) Cough: Code(s): R05.9 - Cough, unspecified Qualifiers: Cough type: chronic Qualified Code(s): R05.3 - Chronic cough (4) Pulmonary hypertension: Code(s): I27.20 - Pulmonary hypertension, unspecified (5) Pleural effusion: Code(s): J90 - Pleural effusion, not elsewhere classified (6) Bronchopneumonia: Code(s): J18.0 - Bronchopneumonia, unspecified organism (7) Lung nodule: Code(s): R91.1 - Solitary pulmonary nodule Plan hypertonic saline for CPT change oxygen supplementation 2L/min at rest and 3 liters/min with activity gabapentin at nighttime Trelegy daily short-acting beta agonist as needed start Doxycycline daily Nasal saline at night Should retest for covid 19, if positve will benefit from Paxlovid F/U 2 months Medications: New doxycycline hyclate 100 mg PO DAILY 30 caps 1RF Coding Level of Care Code Est Pt Level 4 (04142) Diagnoses Chronic obstructive pulmonary disease with acute lower respiratory infection J44.9 Chronic respiratory failure with hypoxia J96.11 Respiratory failure complication: hypoxia Chronic cough R05.3 Cough type: chronic Pulmonary hypertension I27.20 Pleural effusion J90 Bronchopneumonia J18.0 Lung nodule R91.1 Time Spent (min) 18
== END 2023-09-23 14:23 | disposition home or self-care (01) ==
PROVIDERS: PCP Internal Medicine; Visit Provider Hospitalist
DX: J44.9 Chronic obstructive pulmonary disease, unspecified (principal); J96.11 Chronic respiratory failure with hypoxia; R05.3 Chronic cough; I27.20 Pulmonary hypertension, unspecified; J90 Pleural effusion, not elsewhere classified; J18.0 Bronchopneumonia, unspecified organism; R91.1 Solitary pulmonary nodule
CPT/HCPCS: 99214

== ENCOUNTER → 2023-09-23 14:03 | Outpatient (BNVA) | payer MEDICARE, SELFPAY | PROVIDERS: PCP Internal Medicine; Visit Provider Hospitalist | DX: J44.9 Chronic obstructive pulmonary disease, unspecified (principal); J96.11 Chronic respiratory failure with hypoxia; J90 Pleural effusion, not elsewhere classified; J18.0 Bronchopneumonia, unspecified organism; R91.1 Solitary pulmonary nodule; R05.3 Chronic cough; I27.20 Pulmonary hypertension, unspecified | CPT/HCPCS: 99212 ==

== ENCOUNTER 2023-09-30 15:18 | Outpatient (AMB) | payer MEDICARE, SELFPAY ==
[2023-09-30 15:23] VITALS: BP 116/68; PULSE 75; BMI 30.9
--- NOTE | 2023-09-30 15:23 | MHC.OFFVIS ---
Intake Vital Signs 09/30/23 15:23 Height 5 ft 2 in Weight 169 lb BMI 30.9 BP 116/68 Blood Pressure Location Lt brachial Position Sitting Pulse 75 Pulse Source Monitor Intake Visit Reasons: hospital follow up Dewer Required: No Pilot Boat Deckhand: Pilot Boat Deckhand Present Allergies No Known Allergies Allergy (Verified 09/30/23 15:26) Medication List - Last Reconciled 09/30/23 by WILLIAM Gant albuterol sulfate 90 mcg/actuation (ProAir HFA) 2 puffs inhalation Q4-6H PRN albuterol sulfate 2.5 mg inhalation Q4-6H PRN alprazolam 0.25 mg PO DAILY PRN amiodarone take 2 tabs twice daily for 13 days, and after that take 1 tablet daily apixaban (Eliquis) 5 mg PO BID citalopram 40 mg PO DAILY diltiazem HCl 360 mg PO DAILY doxycycline hyclate 100 mg PO DAILY famotidine 20 mg PO DAILY@0800 fluticasone propionate 50 mcg/actuation (Flonase Allergy Relief) 50 mcg intranasal DAILY PRN ogkldbdtzci-ntblhtlmb-xyzzdjhq 100-62.5-25 mcg (Trelegy Ellipta) 1 ea PO DAILY furosemide 40 mg PO BID gabapentin 300 mg PO BEDTIME ibuprofen 800 mg PO TID PRN ipratropium bromide 2 sprays intranasal TID montelukast 10 mg PO DAILY nebulizers As directed Oxygen Home Use As directed potassium chloride ER 20 mEq PO DAILY pravastatin 40 mg PO DAILY@0800 ropinirole 0.25 mg PO BID turmeric root extract 500 mg PO DAILY@0800 HPI hospital follow up HPI Details Tanya is an 82-year-old female with past medical history of hypertension, pulmonary hypertension, COPD, O2 use at home, paroxysmal AFib who was recently admitted to [facility] with increased shortness of breath, treated for COPD exacerbation. She also had recurrent atrial fibrillation and was put on amiodarone to help with rhythm control. She now presents for follow-up. Today she reports that since her hospital discharge he has been monitoring her oxygen levels with a sat monitor. She finds that it goes as low as 50s to 60s. She then sits and takes deep breaths with her oxygen. She can get it up into the 80s. She rarely sees 90s. She states she can not catch her breath good when her reading is low. She does have an intermittent cough. She was recently seen by her slumber room attendant. Overall she feels her breathing is getting worse. She wears her oxygen continually at 2-3 L. No chest discomfort at rest or with activity. No recent heart palpitations. No lightheadedess, presyncope, syncope, falls. No leg edema. Taking meds as directed. Daughters is present. [facility] Medical History COPD (chronic obstructive pulmonary disease) PAF (paroxysmal atrial fibrillation) Atrial fibrillation with rapid ventricular response Lung nodule Pleural effusion Pulmonary hypertension Mitral annular calcification Aortic valve calcification Cough Sinusitis Chronic respiratory failure Pneumonia Surgical History No pertinent past surgical history Family History Brother Myocardial infarction Father Stroke Social History Household Members: Children Household Members Other:: Daughter and family Housing: House Do you presently have visiting nurse or other home services: Yes (meals on wheels) Alcohol intake: never Patient Tobacco Use Status: Never used Tobacco Tobacco use type: Cigarette e-Cigarette/Vaping Use: Never Used Second Hand Smoke Exposure: No Advance Directives Date on File: 06/21/23 service: No Current occupational status: retired Review of Systems Const All systems reviewed & are unremarkable except as noted in HPI and below ENT Denies dizziness Card Details: low oxygen levels, wears O2 continually Denies chest pain, Denies chest pain at rest, Denies chest pain with activity, Denies rapid heart rate, Denies pedal edema, Denies edema, Denies leg edema, Denies lightheadedness, Denies palpitations, Reports dyspnea, Reports dyspnea on exertion and Reports orthopnea Resp Denies cough, Reports dyspnea and Reports dyspnea on exertion GI Denies hematochezia and Denies change in stool character Musc Details: in wheelchair at visit. Denies abnormal gait, Denies limited range of motion, Denies muscle cramps, Reports muscle weakness, Denies numbness, Denies radiating pain into limb, Denies stiffness and Denies tingling Neuro Denies abnormal gait, Denies dizziness, Denies numbness and Denies tingling Endo Denies palpitations Physical Exam Vital Signs: Last Vital Signs Pulse 75 09/30/23 15:23 BP 116/68 09/30/23 15:23 BMI result Body Mass Index 30.9 Const Other: sitting in wheelchair. O2 2 liters, turned up to 3 liters due to sat in low 80s General: cooperative, healthy appearing, comfortable and no acute distress Orientation/consciousness: patient oriented x3 Neck Neck: Yes normal visual inspection and Yes no JVD Resp Other: rales noted in bases, diminished sounds. Effort & Inspection: normal respiratory effort Auscultation: no rhonchi and no wheezes Cardio Jugular venous distension: no JVD Rate: regular rate Rhythm: regular rhythm Heart sounds: S1 normal heart sound present, S2 normal heart sound present, no murmurs and no rubs GI Inspection: Yes normal to inspection Neuro General: patient oriented x3 Extrem General: Yes normal to inspection Psych Appearance: grossly normal Mental Status: mental status grossly normal Speech and movement: Normal speech and movement present Office Procedures EKG Details: Today, read by me, Sinus rhythm with AV dissociation, acceleration junctional beats, rate 75, QTc 437ms - reviewed with Dr Deluna [id number], Complete Assessment & Plan Assessment & Plan (1) PAF (paroxysmal atrial fibrillation): Code(s): I48.0 - Paroxysmal atrial fibrillation Plan: History of paroxysmal atrial fibrillation. On diltiazem for heart rate control and Eliquis for anticoagulation. Recently admitted to [facility] with COPD exacerbation. She did have AFib RVR. She was treated with rate control then started on amiodarone to help with with rhythm control. She was put on a 2 week load of amiodarone and her final loading dose day will be tomorrow. EKG done today showing sinus rhythm with AV dissociation, accelerated junctional beats, rate 75. Denies heart palpitations. No lightheadedness, presyncope, syncope. Reviewed EKG with Dr. Deluna. Will have her stop amiodarone. Continue diltiazem. Continue Eliquis. Will check a Holter monitor. Cardiology follow-up in 2-3 months, sooner if needed. (2) Pulmonary hypertension: Code(s): I27.20 - Pulmonary hypertension, unspecified Plan: Echocardiogram done 08/27/2023 showing EF 65-70%, mild LVH, moderately dilated left atrium, mild mitral annular calcification, moderate pulmonary hypertension. On Lasix 40 mg b.i.d.. On oxygen 2-3 L as needed to keep sat greater than 90. Follows with pulmonology (3) COPD (chronic obstructive pulmonary disease): Code(s): J44.9 - Chronic obstructive pulmonary disease, unspecified Plan: As above (4) Hospital discharge follow-up: Code(s): Z09 - Encounter for follow-up examination after completed treatment for conditions other than malignant neoplasm Plan: As above (5) Abnormal CXR: Code(s): R93.89 - Abnormal findings on diagnostic imaging of other specified body structures Plan: Chest x-ray done 09/01/2023 showing incidental finding of tubular catheter laying over the left posterior 4th rib. May be a broken lead, wire or tubing or artifact. New since 08/26/2023. I sent her for a repeat chest x-ray today. Reading was ready prior to completion of this note showing no mention of the same incidental finding. Images reviewed and catheter type structure no longer present. Her current chest x-ray does show Congestive heart failure with interstitial edema. Labs done 08/29/2023 showing creatinine 0.69, potassium 3.8. She is currently on Lasix 40 mg b.i.d.. Will have her take an additional 40 mg of Lasix daily for 1 week. Plan to then call her to check on condition. Daughter informed. Plan Time spent with chart review, documentation, interview and assessment Orders: Orders XR chest 2V Today J44.9 - Chronic obstructive pulmonary disease, unspecified, R09.02 - Hypoxemia Coding Level of Care Code Est Pt Level 4 (78128) Diagnoses PAF (paroxysmal atrial fibrillation) I48.0 Pulmonary hypertension I27.20 Chronic obstructive pulmonary disease with acute lower respiratory infection J44.9 Hospital discharge follow-up Z09 Abnormal CXR R93.89 CPT Codes EKG - CPT: 63360-[id number], Complete ([id number]) Time Spent (min) 35
== END 2023-09-30 16:11 | disposition home or self-care (01) ==
PROVIDERS: PCP Internal Medicine; Visit Provider Nurse Practitioner Family
DX: I48.0 Paroxysmal atrial fibrillation (principal); I27.20 Pulmonary hypertension, unspecified; J44.9 Chronic obstructive pulmonary disease, unspecified; Z09 Encounter for follow-up examination after completed treatment for conditions other than malignant neoplasm; R93.89 Abnormal findings on diagnostic imaging of other specified body structures
CPT/HCPCS: 93010; 99214

== ENCOUNTER 2023-09-30 15:18 | Outpatient (REF) | payer MEDICARE, MEDICAID, SELFPAY ==
--- NOTE | ~2023-09-30 | XR_ITS ---
EXAMINATION: XR CHEST CLINICAL INFORMATION: Hypoxemia COMPARISON: 08/24/2023 TECHNIQUE: 2 views of the chest were obtained. FINDINGS: Pancreas interstitial markings bilaterally with bibasilar atelectasis. Cardiomediastinal silhouette revealed tortuosity of aorta. There is no evidence of consolidations or nodules. XR/XR chest 2V IMPRESSION: CHF with interstitial edema
== END 2023-09-30 15:19 | disposition home or self-care (01) ==
LOC: HO.XRAY 15:18
PROVIDERS: PCP Internal Medicine; Visit Provider Nurse Practitioner Family
DX: R09.02 Hypoxemia (principal); J44.9 Chronic obstructive pulmonary disease, unspecified; I48.0 Paroxysmal atrial fibrillation; I27.20 Pulmonary hypertension, unspecified
CPT/HCPCS: 71046; 93005; 99212

== ENCOUNTER → 2023-10-25 10:03 | Outpatient (REF) | payer MEDICARE, SELFPAY ==
--- NOTE | 2023-10-25 10:13 | HM_ITS ---
Conclusion: 1. Patient was monitored for total period of 3 days 2. Baseline was normal sinus rhythm with average heart of 60 beats per minute 3. No significant pauses noted but frequent sinus bradycardia noted with 67% of time heart rate below 60 beats per minute 4. Frequent PACs noted with total burden of 1.8% with no significant SVT events 5. No patient reported events MTDD
== END ==
LOC: HO.CARD 10:03
PROVIDERS: PCP Internal Medicine; Visit Provider Nurse Practitioner Family
DX: R94.31 Abnormal electrocardiogram [ECG] [EKG] (principal); I49.1 Atrial premature depolarization
CPT/HCPCS: 93242

== ENCOUNTER → 2023-10-25 10:13 | Outpatient (BNV) | payer MEDICARE, SELFPAY | PROVIDERS: PCP Internal Medicine; Visit Provider Internal Medicine Cardiovascular Disease | DX: R00.1 Bradycardia, unspecified (principal) | CPT/HCPCS: 93244 ==

== ENCOUNTER 2023-11-30 14:47 | Outpatient (AMB) | payer MEDICARE, SELFPAY ==
[2023-11-30 14:52] VITALS: BP 120/74; PULSE 74; BMI 29.4
--- NOTE | 2023-11-30 14:52 | MHC.OFFVIS ---
Vital Signs 11/30/23 14:52 Height 5 ft 2 in Weight 161 lb BMI 29.4 BP 120/74 Blood Pressure Location Lt brachial Position Sitting Pulse 74 Intake Visit Reasons: 2 month follow up Intake Note: 2 month follow-up feeling good Scallop Binder Required: No Allergies No Known Allergies Allergy (Verified 09/30/23 15:26) Medication List - Last Reconciled 11/30/23 by Ruben Hickey MD albuterol sulfate 90 mcg/actuation (ProAir HFA) 2 puffs inhalation Q4-6H PRN albuterol sulfate 2.5 mg inhalation Q4-6H PRN alprazolam 0.25 mg PO DAILY PRN apixaban (Eliquis) 5 mg PO BID citalopram 40 mg PO DAILY diltiazem HCl CD 240 mg PO DAILY doxycycline hyclate 100 mg PO DAILY famotidine 20 mg PO DAILY@0800 fluticasone propionate 50 mcg/actuation (Flonase Allergy Relief) 50 mcg intranasal DAILY PRN fuxefwqjbql-xxnxswnjf-yltkfvty 100-62.5-25 mcg (Trelegy Ellipta) 1 ea PO DAILY furosemide 40 mg PO BID gabapentin 300 mg PO BEDTIME ibuprofen 800 mg PO TID PRN ipratropium bromide 2 sprays intranasal TID montelukast 10 mg PO DAILY nebulizers As directed Oxygen Home Use As directed potassium chloride ER 20 mEq PO DAILY pravastatin 40 mg PO DAILY@0800 ropinirole 0.25 mg PO BID turmeric root extract 500 mg PO DAILY@0800 HPI Comments Details: Tanya returns for follow-up. She has a history of paroxysmal atrial fibrillation, COPD on supplemental oxygen, hypertension and many comorbidities. In August of 2023, it seems that she was admitted with COPD exacerbation. In that setting, she had atrial fibrillation with rapid rate. Then started on amiodarone. Subsequently, when she came for follow-up visit there was question of AV dissociation on the EKG and hence amiodarone was stopped. She is also on a lower dose of diltiazem. She was previously on diltiazem 360 mg, but now on 240 mg. Overall, she states that she feels great. No cardiac symptoms. Breathing is also well controlled. Leg swelling at baseline. Daughter is also here for the appointment. [facility] Medical History COPD (chronic obstructive pulmonary disease) PAF (paroxysmal atrial fibrillation) Atrial fibrillation with rapid ventricular response Lung nodule Pleural effusion Pulmonary hypertension Mitral annular calcification Aortic valve calcification Cough Sinusitis Chronic respiratory failure Pneumonia Surgical History No pertinent past surgical history Family History Brother Myocardial infarction Father Stroke Social History Household Members: Children Household Members Other:: Daughter and family Housing: House Do you presently have visiting nurse or other home services: Yes (meals on wheels) Alcohol intake: never Patient Tobacco Use Status: Never used Tobacco Tobacco use type: Cigarette e-Cigarette/Vaping Use: Never Used Second Hand Smoke Exposure: No Advance Directives Date on File: 06/21/23 service: No Current occupational status: retired Review of Systems Const Denies chills, Denies fatigue, Denies fever(s), Denies frequent falls, Denies weakness, Denies weight gain and Denies weight loss ENT Denies dizziness Card Denies chest pain, Denies leg edema, Denies lightheadedness, Denies palpitations, Denies dyspnea, Denies dyspnea on exertion, Denies orthopnea and Denies other (loss of consciousness) Resp Denies cough, Denies dyspnea and Denies dyspnea on exertion GI Denies hematochezia and Denies change in stool character Musc Denies abnormal gait, Denies muscle weakness, Denies numbness, Denies radiating pain into limb and Denies tingling Neuro Denies abnormal gait, Denies dizziness, Denies frequent falls, Denies numbness, Denies tingling and Denies weakness Endo Denies fatigue and Denies palpitations Physical Exam Vital Signs: Last Vital Signs Pulse 74 11/30/23 14:52 BP 120/74 11/30/23 14:52 BMI result Body Mass Index 29.4 Const General: comfortable and no acute distress Orientation/consciousness: patient oriented x3 HEENT Other: Unremarkable Head: Yes normal to inspection Neck Neck: Yes normal visual inspection Chest Chest palpation & inspection: normal inspection of the chest Resp Other: Minimal basal crackles Cardio Palpation: normal PMI Heart sounds: S1 normal heart sound present, S2 normal heart sound present, no gallops, no murmurs and no rubs GI Palpation (GI): Soft to palpation Back/Spine/Pelvis Other: unremarkable Skin General skin exam: no rashes or lesions noted Neuro General: patient oriented x3 Extrem General: Yes normal to inspection Psych Mental Status: mental status grossly normal Assessment & Plan Assessment & Plan (1) PAF (paroxysmal atrial fibrillation): Code(s): I48.0 - Paroxysmal atrial fibrillation Category: Medical Plan: Records reviewed. While on amiodarone/diltiazem, she had AV dissociation. Now off amiodarone. On low dose of diltiazem. No changes. Repeat Holter does not show recurrent atrial fibrillation. Also on anticoagulation. In case there is recurrent atrial fibrillation, possibly just use amiodarone only or only a very small dose of diltiazem. A prior stress test from [facility], 2018 shows probably normal perfusion. (2) Diastolic dysfunction: Code(s): I51.89 - Other ill-defined heart diseases Category: Medical Plan: Suspected moderate diastolic dysfunction on the recent echocardiogram. May continue diuretics as currently on. May adjust as necessary. (3) Leg edema: Code(s): R60.0 - Localized edema Category: Medical Plan: Mild leg edema. Suspect venous insufficiency. Less likely right heart dysfunction but could be multifactorial. Remains on diuretics. May adjust as necessary. Also on compression stockings. (4) Pulmonary hypertension: Code(s): I27.20 - Pulmonary hypertension, unspecified Category: Medical Plan: Last echocardiogram with moderate pulmonary hypertension. Likely related to intrinsic pulmonary disease. No specific plan. Plan Discussed with daughter who came for appointment. Coding Level of Care Code Est Pt Level 4 (42752) Diagnoses PAF (paroxysmal atrial fibrillation) I48.0 Diastolic dysfunction I51.89 Leg edema R60.0 Pulmonary hypertension I27.20
== END 2023-11-30 15:19 | disposition home or self-care (01) ==
PROVIDERS: PCP Internal Medicine; Visit Provider Internal Medicine
DX: I48.0 Paroxysmal atrial fibrillation (principal); I51.89 Other ill-defined heart diseases; R60.0 Localized edema; I27.20 Pulmonary hypertension, unspecified
CPT/HCPCS: 99214

== ENCOUNTER → 2023-11-30 14:47 | Outpatient (BNVA) | payer MEDICARE, SELFPAY | PROVIDERS: PCP Internal Medicine; Visit Provider Internal Medicine | DX: I48.0 Paroxysmal atrial fibrillation (principal); I51.89 Other ill-defined heart diseases; I27.20 Pulmonary hypertension, unspecified; R60.0 Localized edema | CPT/HCPCS: 99212 ==

== ENCOUNTER 2024-02-03 14:31 | Outpatient (AMB) | payer OTHER, SELFPAY ==
[2024-02-03 14:42] VITALS: PULSE 66; O2SAT 93; BMI 30.9
--- NOTE | 2024-02-03 14:42 | MHC.OFFVIS ---
Vital Signs 02/03/24 14:42 Height 5 ft Weight 158 lb BMI 30.9 Pulse 66 Pulse Source Pulse Oximeter Pulse Oximetry (%) 93 Oxygen Delivery Method Room Air Comment 2 Liters Oxygen([employer]) Intake Visit Reasons: copd Peanut Blancher Required: No Allergies No Known Allergies Allergy (Verified 02/03/24 14:44) HPI Comments Details: The patient is a 83 -year-old woman with known COPD also chronic respiratory failure on oxygen. Apparently she was in usual state health until recently her became sick with RSV and was admitted to the [facility]. For the last couple weeks she has had worsening respiratory symptoms. She has been evaluated twice by her primary care doctor. She has been given antibiotics and prednisone. However, she continues to worsen. Today she has been using 4 L pulse on her oxygen device. She is using a mask and she was noted to be 88%. However, the patient is not activating the oxygen based on the fact that she her nasal passages are congested and she is breathing through her mouth. Therefore I switched her oxygen to continues 2 L and she maintain a pulse ox of 92%. I explained to the patient that she is to avoid using the conserving device valve at this time. The patient was provided additional antibiotics and prednisone. If she is no better in 24-48 hours. she has to go to the hospital. However, if she worsens she also she go the hospital. ??? 08/04/2022 the patient is here for a sick visit. Apparently she has been having issues with heart. She was admitted briefly at [facility] and then here [facility] found to have AFib with rapid ventricular response. She was placed on Eliquis and ultimately had her calcium channel sary increase for rate control. The patient has been having worsening cough however. Her cough is persistent and moderate to severe. At times is productive of yellow phlegm. Having hard time sleeping because of the cough. She has tried multiple lfoz-seu-pipmxzs remedies without any significant improvement. On examination seems like she has a good amount of purulent secretions that are coming down her posterior pharynx suggesting a component of sinusitis. the patient also had chest x-rays while being in the hospital July demonstrating some degree of atelectasis and minimal pleural effusion. We talked about her medications including lisinopril that is likely not helping with her cough. Although as part of the primary cause of the cough. At this point based on the severity of the cough will be reasonable to switch her to an ARB. 09/22/2022 the patient is here for pulmonary follow-up visit. She is finally feeling better. The cough significantly better. She still has a productive cough and brings up phlegm. We did talk about performing CPT with flutter valve. She does have 1 available and she can use it twice a day. Explained to her that she is always going to bring up some phlegm. At this time the azithromycin 3 times a week seems to be helpful. Coming off the lisinopril is also helpful. The Trelegy inhaler she is using once a day with good effect. Sometimes it makes her cough. I did instruct her to she is taking little softer so she does not irritate too much to the upper airway. The AFib seems to be in good control. We did review her x-ray from July 10 with demonstrating some minimal atelectasis and scoliosis. And at this point will plan to follow-up in 4 months. If the patient has any difficulties prior to that she is to call the office for an earlier evaluation. 11/19/2022 the patient is here for a pulmonary follow-up visit. The patient is feeling better. Her Wilfred inhibitor was stopped and her cough is improved. Although she still has a little productive phlegm. It does bother her. Does not seen significant improvement with the azithromycin. Will go ahead and stop it. I did request a sputum culture will try couple weeks of doxycycline to see if we can clear any significant mucus. Recently she did have a CT scan of the chest done beginning of November 2022 in a personally reviewed it. She does have some moderate degree amount of emphysema and also scoliosis. She also has atelectasis primarily in the left hemithorax there is a segment that appears to be nearly completely obstructed. If the patient continues symptomatic consider bronchoscopy to assess that airway to make sure there was no endobronchial blockage. But at this point clinically the patient is better overall and will try to minimize any semi invasive procedures. Will reassess in a few months. 01/20/2023 the patient is here for pulmonary follow-up visit. Overall the patient is feeling better. She did complete the antibiotics and the chest physical therapy. She continues to have dyspnea on exertion. She also has some fluid overload issues. Her x-ray she had back in July she did have small pleural effusions as well. The patient will benefit from additional diuresis specially with pulmonary hypertension. Holding off on any invasive or semi-invasive diagnostic interventions at this time. She continues use the oxygen with good effect. She continues use her respiratory therapy as well. Will go ahead and prescribe Lasix that she can use for 3-5 days and will monitor closely her weight and her lower extremity edema. If the patient continues use the diuretics she will need to have blood work to monitor her electrolytes and kidney function. 04/29/2023 the patient is here for sick visit. The patient apparently was in his usual state health until sometime in the beginning of April when she started developing worsening respiratory symptoms. The patient was brought to the [facility] ER where she was evaluated. She was admitted to the hospital with COPD exacerbation. She was treated with steroids antibiotics and also respiratory treatments. The patient was able to be discharged. However, she states that upon discharge her cough got worse. She started developing worse chest congestion and also sinus congestion. Moderate severity. She is been using her oxygen more and had to increase the dose. She is been having hard time. She has been on prednisone tapering down currently on 20 mg. on exam she is very rhonchorous with a prolonged expiratory phase and wheezing. She was given a Xopenex and hypertonic saline nebulizer treatment in a sputum culture was able to be sent to the laboratory. In the meantime the patient appears to have a postviral bacterial infection in the lower respiratory now so likely the upper respiratory tract. Therefore, will start her on broad-spectrum antibiotics and will also extend her prednisone use. If the patient is no better she will come in for an x-ray and she will call the office. However, if her symptoms worsen she may need to go back to the ER. 05/13/2023 the patient is here for pulmonary follow-up visit. She is no better. She is having still significant cough. Productive in nature. Has a hard time sleeping because of the cough. Moderate severity. Feels is more over sinuses now. She does have Afrin nasal spray that she can use to 5 days. She did complete the prednisone. She also completed the Vantin. Based on the fact that she is still very congested will go ahead and start her on levofloxacin. The patient can start his low-dose prednisone as well to try to help with the inflammation. And will follow-up with her after her CT scan. The patient develops any worsening symptoms she can always call and we can consider bronchoscopy. She is also complaining of some pleuritic chest discomfort. Currently better. I did advise that if her discomfort returns or if it worsens that she should go to the ER for further evaluation. 07/22/2023 the patient has a telehealth visit today. Her family sick with COVID she does not have COVID as of yet but taking precautions. She is still complaining of productive cough. Her cough is yellowish and green in color. Moderate severity. Sometimes she gets anxious because of the burden of mucus. We did start him on Augmentin but has not seen any significant improvement after several days. She has not finding that she is wheezing at this time. Therefore will hold off on any prednisone. She did respond better to Levaquin in the past. She may have an enteric resistant organism. We did request a sputum culture but she was not able to perform just yet. Will go ahead and switch her again to Levaquin to see if she can feel better. If not will definitely have to get a sputum culture. We did review her recent CT scan of the chest that she had demonstrating interval improvement in the left upper lobe pulmonary nodule going from 9 mm spiculated to now 4.8 mm nodule. This is very reassuring. She does have a new density in the left lower lobe which is not too concerning likely some degree of atelectasis but is definitely new will need follow-up. The patient will return in a couple months to see how her progresses and otherwise will call sooner if her symptoms are not any better. 09/23/2023 the patient is here for hospital follow-up visit. She was recently hospitalized with chest pain and shortness of breath. She was found to have atrial fibrillation with rapid ventricular response. She was placed on amiodarone. The patient did have a chest x-ray done demonstrating hyperinflated lungs and also a question of a broken lead. She will follow-up with cardiology for that. In the meantime she has been on the conserving device tank. Although does not always breathe through her nose and is not enough oxygen. She was found to be hypoxic on arrival. She was down to the mid 80s on 3-4 L pulse. Therefore she was ambulated and the patient needs to be on continues oxygen. Will go ahead and let her [employer] known to provide her with oxygen times with a regular valve so she can use 2 L at rest and 3 L with activity to maintain a pulse ox above 90%. She continues with respiratory therapy. The patient does have a productive cough. Unfortunately we can not place her on macrolide therapy because she is on amiodarone. Therefore will start her on doxycycline daily as a prophylactic dose to see if we can treat her chronic bronchitis. Will follow-up in 6-8 weeks. 02/03/2024 the patient is here for a pulmonary follow-up visit. Overall she is feeling a lot better. She has been on the Lasix with good response. Her lower extremity edema still there. Is causing some soreness. She had been on 240 mg of potassium that was decreased down to 180. indeed he still can be related to the calcium channel blockers. I will make note of it and let her acoustic intelligence specialist note to consider switching her to a beta-sary as this should be okay from a pulmonary standpoint. In the meantime she is going to continue with diuresis. She knows to weigh herself daily and if she gains more than 2 lb in 24 hours she has to take additional diuretics. The patient also needs to monitor closely her electrolytes. From a respiratory status she does continue to use the oxygen with good effect. She does use it 24 hours a day. Her last chest x-ray did demonstrate some heart failure. This is back in September. I do not appreciate any crackles at this time. Therefore do believe her volume status is much better. Will go ahead and repeat her chest x-ray prior to her next follow-up visit in 3-4 months. If the patient develops any worsening symptoms prior to that she will call for an earlier assessment. In addition to that she is complaining about some insomnia. She has been using Benadryl at nighttime. I will give her prescription for trazodone that she can start to see if this can provide some relief without using Benadryl that can result in other adverse effects. COUNTS INCLUDE 234 BEDS AT THE [facility] Medical History COPD (chronic obstructive pulmonary disease) PAF (paroxysmal atrial fibrillation) Atrial fibrillation with rapid ventricular response Lung nodule Pleural effusion Pulmonary hypertension Mitral annular calcification Aortic valve calcification Cough Sinusitis Chronic respiratory failure Pneumonia Surgical History No pertinent past surgical history Family History Brother Myocardial infarction Father Stroke Social History Household Members: Children Household Members Other:: Daughter and family Housing: House Do you presently have visiting nurse or other home services: Yes (meals on wheels) Alcohol intake: never Patient Tobacco Use Status: Never used Tobacco Tobacco use type: Cigarette e-Cigarette/Vaping Use: Never Used Second Hand Smoke Exposure: No Advance Directives Date on File: 06/21/23 service: No Current occupational status: retired Review of Systems Const Reports difficulty sleeping, Denies fever(s) and Denies night sweats ENT Denies change in voice, Reports nasal congestion, Reports nasal discharge and Reports post nasal drip Card Denies chest pain, Reports leg edema and Reports dyspnea on exertion Resp Reports cough, Denies hemoptysis and Reports dyspnea on exertion GI Denies abdominal pain Musc Denies no additional complaints Neuro Denies Neuro-related abnormal movements Psych Denies no additional complaints Celestine/Lymph Denies easy bleeding and Denies lymphadenopathy Physical Exam Vital Signs: Last Vital Signs Pulse 66 02/03/24 14:42 Pulse Ox 93 02/03/24 14:42 Oxygen Delivery Method Room Air 02/03/24 14:42 BMI result Body Mass Index 30.9 Const General: alert Orientation/consciousness: patient oriented x3 Neck Neck: Yes normal visual inspection, Yes full ROM, Yes no lymphadenopathy and Yes supple Chest Chest palpation & inspection: normal inspection of the chest Resp Effort & Inspection: normal respiratory effort Auscultation: no rales, no rhonchi, no wheezes and diminished lung sounds Cardio Rate: regular rate Rhythm: regular rhythm Heart sounds: S1 normal heart sound present and S2 normal heart sound present GI Palpation (GI): Soft to palpation and nontender Auscultation: normal bowel sounds Skin General skin exam: no rashes or lesions noted Neuro General: patient oriented x3 Extrem General: No clubbing, No cyanosis and Yes edema Assessment & Plan Assessment & Plan (1) COPD (chronic obstructive pulmonary disease): Code(s): J44.9 - Chronic obstructive pulmonary disease, unspecified Category: Medical (2) Chronic respiratory failure: Code(s): J96.10 - Chronic respiratory failure, unspecified whether with hypoxia or hypercapnia Category: Medical Qualifiers: Respiratory failure complication: hypoxia Qualified Code(s): J96.11 - Chronic respiratory failure with hypoxia (3) Cough: Code(s): R05.9 - Cough, unspecified Category: Medical Qualifiers: Cough type: chronic Qualified Code(s): R05.3 - Chronic cough (4) Pulmonary hypertension: Code(s): I27.20 - Pulmonary hypertension, unspecified Category: Medical (5) Pleural effusion: Code(s): J90 - Pleural effusion, not elsewhere classified Category: Medical (6) Lung nodule: Code(s): R91.1 - Solitary pulmonary nodule Category: Medical Plan hypertonic saline for CPT oxygen supplementation 2L/min at rest and 3 liters/min with activity start Trazodone for sleep Trelegy daily short-acting beta agonist as needed Nasal saline at night diuresi as tolerated, daily weights. ?CCB induced LE edema, ok to switch to Beta blockers if warranted F/U 3-4 months Medications: New trazodone 50 mg PO BEDTIME 30 tabs 6RF sleep 30 days Coding Level of Care Code Est Pt Level 4 (57215) Complex EM visit Add On G2211 Diagnoses Chronic obstructive pulmonary disease with acute lower respiratory infection J44.9 Chronic respiratory failure with hypoxia J96.11 Respiratory failure complication: hypoxia Chronic cough R05.3 Cough type: chronic Pulmonary hypertension I27.20 Pleural effusion J90 Lung nodule R91.1 Time Spent (min) 17
== END 2024-02-03 15:03 | disposition home or self-care (01) ==
PROVIDERS: PCP Internal Medicine; Visit Provider Hospitalist
DX: J44.9 Chronic obstructive pulmonary disease, unspecified (principal); J96.11 Chronic respiratory failure with hypoxia; R05.3 Chronic cough; I27.20 Pulmonary hypertension, unspecified; J90 Pleural effusion, not elsewhere classified; R91.1 Solitary pulmonary nodule
CPT/HCPCS: 99214; G2211

== ENCOUNTER → 2024-02-03 14:31 | Outpatient (BNVA) | payer OTHER, SELFPAY | PROVIDERS: PCP Internal Medicine; Visit Provider Hospitalist | DX: J96.11 Chronic respiratory failure with hypoxia (principal); J44.9 Chronic obstructive pulmonary disease, unspecified; J90 Pleural effusion, not elsewhere classified; R05.3 Chronic cough; I25.720 Atherosclerosis of autologous artery coronary artery bypass graft(s) with unstable angina pectoris; R91.1 Solitary pulmonary nodule; Z99.81 Dependence on supplemental oxygen | CPT/HCPCS: 99212 ==

== ENCOUNTER 2024-03-14 10:18 | Outpatient (AMB) | payer OTHER, SELFPAY ==
--- NOTE | 2024-03-14 10:22 | A.OFFVIS_ITS ---
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 Required: No Accompanied by: Daughter Allergies No Known Allergies Allergy (Verified 02/03/24 14:44) Medication List - Last Reconciled 03/14/24 by Ruben Hickey MD albuterol sulfate 90 mcg/actuation (ProAir HFA) 2 puffs inhalation Q4-6H PRN albuterol sulfate 2.5 mg inhalation Q4-6H PRN alprazolam 0.25 mg PO DAILY PRN apixaban (Eliquis) 5 mg PO BID citalopram 40 mg PO DAILY diltiazem HCl CD 240 mg PO DAILY famotidine 20 mg PO DAILY@0800 fluticasone propionate 50 mcg/actuation (Flonase Allergy Relief) 50 mcg intranasal DAILY PRN exdhlsupfjl-ruxzixxam-kvloxqds 100-62.5-25 mcg (Trelegy Ellipta) 1 ea PO DAILY furosemide 40 mg PO BID gabapentin 300 mg PO BEDTIME ibuprofen 800 mg PO TID PRN ipratropium bromide 2 sprays intranasal TID montelukast 10 mg PO DAILY nebulizers As directed Oxygen Home Use As directed potassium chloride ER 20 mEq PO DAILY pravastatin 40 mg PO DAILY@0800 ropinirole 0.25 mg PO BID trazodone 50 mg PO BEDTIME 30 days turmeric root extract 500 mg PO DAILY@0800 HPI Comments Details: Tanya returns for follow-up. She has a history of paroxysmal atrial fibrillation, COPD on supplemental oxygen, hypertension and many comorbidities. In August of 2023, she was admitted with COPD exacerbation. In that setting, she had atrial fibrillation with rapid rate. Then started on amiodarone. Subsequently, when she came for follow-up visit there was question of AV dissociation on the EKG and hence amiodarone was stopped. She is also on a lower dose of diltiazem. She was previously on diltiazem 360 mg, but now on 240 mg. Nonspecific complaints like feeling tired and weak. Otherwise, she has had some leg swelling but not today. Breathing is at baseline. [facility] Medical History COPD (chronic obstructive pulmonary disease) PAF (paroxysmal atrial fibrillation) Atrial fibrillation with rapid ventricular response Lung nodule Pleural effusion Pulmonary hypertension Mitral annular calcification Aortic valve calcification Cough Sinusitis Chronic respiratory failure Pneumonia Surgical History No pertinent past surgical history Family History Brother Myocardial infarction Father Stroke Social History Household Members: Children Household Members Other:: Daughter and family Housing: House Do you presently have visiting nurse or other home services: Yes (meals on wheels) Alcohol intake: never Patient Tobacco Use Status: Never used Tobacco Tobacco use type: Cigarette e-Cigarette/Vaping Use: Never Used Second Hand Smoke Exposure: No Advance Directives Date on File: 06/21/23 service: No Current occupational status: retired Review of Systems Const Denies chills, Denies fatigue, Denies fever(s), Denies frequent falls, Denies weakness, Denies weight gain and Denies weight loss ENT Denies dizziness Card Denies chest pain, Denies leg edema, Denies lightheadedness, Denies palpitations, Denies dyspnea and Denies dyspnea on exertion Resp Denies cough, Denies dyspnea and Denies dyspnea on exertion GI Denies hematochezia Musc Denies abnormal gait, Denies muscle weakness, Denies numbness, Denies radiating pain into limb and Denies tingling Neuro Denies abnormal gait, Denies dizziness, Denies frequent falls, Denies numbness, Denies tingling and Denies weakness Endo Denies fatigue and Denies palpitations Physical Exam Vital Signs: Last Vital Signs Pulse 66 03/14/24 10:23 BP 110/62 03/14/24 10:23 BMI result Body Mass Index 31.3 Const General: comfortable and no acute distress Orientation/consciousness: patient oriented x3 HEENT Other: Unremarkable Head: Yes normal to inspection Neck Neck: Yes normal visual inspection Chest Chest palpation & inspection: normal inspection of the chest Resp Other: Minimal basal crackles Cardio Palpation: normal PMI Heart sounds: S1 normal heart sound present, S2 normal heart sound present, no gallops, no murmurs and no rubs GI Palpation (GI): Soft to palpation Back/Spine/Pelvis Other: unremarkable Skin General skin exam: no rashes or lesions noted Neuro General: patient oriented x3 Extrem General: Yes normal to inspection Psych Mental Status: mental status grossly normal Office Procedures EKG Details: EKG with underlying sinus rhythm at 63/Min; OH prolongation to 212 millisecond; nonspecific [place]. [place] [id number], Complete Assessment & Plan Assessment & Plan (1) PAF (paroxysmal atrial fibrillation): Code(s): I48.0 - Paroxysmal atrial fibrillation Category: Medical Plan: Records reviewed. While on amiodarone/diltiazem, she had AV dissociation. Now off amiodarone. On lower dose of diltiazem. No changes. Due to concerns for generalized tiredness, we will recheck Holter for any bradyarrhythmias. A prior stress test from [facility], 2018 shows probably normal perfusion. (2) Diastolic dysfunction: Code(s): I51.89 - Other ill-defined heart diseases Category: Medical Plan: Suspected moderate diastolic dysfunction on the recent echocardiogram. Continue diuretics. (3) Pulmonary hypertension: Code(s): I27.20 - Pulmonary hypertension, unspecified Category: Medical Plan: Last echocardiogram with moderate pulmonary hypertension. Could be related to left heart dysfunction as well as pulmonary disease. From cardiac, continue diuretics. (4) Fatigue: Code(s): R53.83 - Other fatigue Category: Medical Plan: Complaints of nonspecific fatigue. She has a history of anemia and we can recheck hemoglobin. If necessary, referred Hematology. Check Holter as above. Plan Discussed with daughter who came for appointment. Orders: Orders Complete Blood Count no Diff Today D64.9 - Anemia, unspecified Comprehensive Met. Panel Today I48.0 - Paroxysmal atrial fibrillation ECG 7 day holter monitor Today I48.0 - Paroxysmal atrial fibrillation Coding Level of Care Code Est Pt Level 4 (20089) Diagnoses PAF (paroxysmal atrial fibrillation) I48.0 Diastolic dysfunction I51.89 Pulmonary hypertension I27.20 Fatigue R53.83 CPT Codes EKG - CPT: 03723-[id number], Complete ([id number])
[2024-03-14 10:23] VITALS: BP 110/62; PULSE 66; BMI 31.3
== END 2024-03-14 10:50 | disposition home or self-care (01) ==
PROVIDERS: PCP Internal Medicine; Visit Provider Internal Medicine
DX: I48.0 Paroxysmal atrial fibrillation (principal); I51.89 Other ill-defined heart diseases; I27.20 Pulmonary hypertension, unspecified; R53.83 Other fatigue
CPT/HCPCS: 93010; 99214

== ENCOUNTER 2024-03-14 10:18 | Outpatient (REF) | payer OTHER, SELFPAY ==
[2024-03-14 12:37] LABS: Hematocrit 28.3 % (37.0-47.0); Hemoglobin 8.1 g/dl (12.0-16.0); Mean Corpuscular HGB Conc 28.6 g/dl (31.0-35.0); Mean Corpuscular Hemoglobin 22.5 pg (27.0-33.0); Mean Corpuscular Volume 78.6 fL (80.0-98.0); Mean Platelet Volume 10.6 fL (9.4-12.3); Platelet Count 451 X10*3/uL (160-400); Red Cell Distribution Width 16.5 % (11.0-16.0); White Blood Count 8.3 X10*3/uL (4.8-10.8)
[2024-03-14 13:06] LABS: Alanine Aminotransferase 10 U/L (0-31); Albumin Level 3.6 g/dL (3.5-5.0); Alkaline Phosphatase 86 U/L (39-117); Anion Gap 11 (12-20); Aspartate Amino Transferase 16 U/L (5-31); Bilirubin Total 0.3 mg/dL (0.0-1.0); Blood Urea Nitrogen 14 mg/dL (9-16); Calcium 8.7 mg/dL (8.4-10.2); Carbon Dioxide 32 mmol/L (22-29); Chloride 100 mmol/L (96-108); Estimated Glomerular Filt Rate > 60; Glucose Random 98 mg/dL (60-115); Potassium 3.6 mmol/L (3.3-5.1); Sodium 139 mmol/L (135-145); Total Protein 7.3 g/dL (6.5-8.0)
== END 2024-03-14 10:19 | disposition home or self-care (01) ==
LOC: HO.LAB 10:18
PROVIDERS: PCP Internal Medicine; Visit Provider Internal Medicine
DX: D64.9 Anemia, unspecified (principal); I48.0 Paroxysmal atrial fibrillation; I51.89 Other ill-defined heart diseases; I27.20 Pulmonary hypertension, unspecified; R53.83 Other fatigue
CPT/HCPCS: 36415; 80053; 85027; 93005; 99212

== ENCOUNTER → 2024-04-03 14:38 | Outpatient (BNV) | payer OTHER, SELFPAY | PROVIDERS: PCP Internal Medicine; Referring Provider Physician Assistant; Visit Provider Internal Medicine Medical Oncology | DX: D50.9 Iron deficiency anemia, unspecified (principal) | CPT/HCPCS: 99204 ==

== ENCOUNTER → 2024-04-10 13:25 | Outpatient (REF) | payer OTHER, SELFPAY ==
--- NOTE | 2024-04-10 13:27 | HM_ITS ---
* Total monitoring time 7 days. * Underlying rhythm is sinus with an average rate of 63/Min. * Supraventricular ectopy noted with a burden of 4.9%. * Rare ventricular ectopy. Rare couplets. One run of 4 beats. * No significant pauses or high-grade AV blocks. * No patient markers or diary events. MTDD
== END ==
LOC: HO.CARD 13:25
PROVIDERS: PCP Internal Medicine; Visit Provider Internal Medicine
DX: I48.0 Paroxysmal atrial fibrillation (principal)
CPT/HCPCS: 93242

== ENCOUNTER → 2024-04-10 13:27 | Outpatient (BNV) | payer OTHER, SELFPAY | PROVIDERS: PCP Internal Medicine; Visit Provider Internal Medicine | DX: I47.10 Supraventricular tachycardia, unspecified (principal) | CPT/HCPCS: 93244 ==

== ENCOUNTER 2024-05-15 11:11 | Emergency (ER) | payer OTHER, SELFPAY ==
--- NOTE | ~2024-05-15 | XR_ITS ---
EXAMINATION: XR CHEST CLINICAL INFORMATION: COPD, SOB, cough COMPARISON: 09/22/2023, 08/24/2023, 08/26/2023. TECHNIQUE: PA and lateral views of the chest were obtained. FINDINGS: The heart size is normal. The aorta is tortuous and calcified. No hilar abnormalities. Minimal linear atelectasis noted lateral costophrenic angle regions. Lungs otherwise grossly clear. Increased AP diameter and mild hyperaeration, suggestive of COPD. No pneumonic consolidation or abnormal opacity. Possible minimal CHF with subtle Uziel B lines. Stable appearance of left basilar scarring abutting the spine. No acute osseous abnormalities. Marked dextroconvex scoliosis with kyphosis of the thoracic spine. XR/XR chest 2V IMPRESSION: -Possible mild/minimal CHF has manifested by subtle bibasilar Uziel B lines. -COPD. -No active superimposed disease. Electronically signed by: Lee Wilson MD 05/15/2024 01:17 PM GEO MAH[facility]
[2024-05-15 11:49] VITALS: BP 149/58; PULSE 83; RESP 22; TEMP 37.2; O2SAT 98; BMI 31.8
--- NOTE | 2024-05-15 11:53 | ED.GENADULT ---
HPI - General Adult General Chief complaint: General Medical Stated complaint: had shingles, flu symptoms Time Seen by Provider: 05/15/24 12:25 History of Present Illness ED Provider: Xavier JENNINGS narrative: The patient is an 83-year-old female with a history of COPD who was on home oxygen. She also has a history of paroxysmal atrial fibrillation. She is on diltiazem and apixaban. About 2 weeks ago she broke out in a rash that was apparent in her right lower back and radiated to her right groin. She happened to be seeing Dr. Gloria at the time the rash appeared and she was prescribed valacyclovir 500 mg t.i.d. that she finished about 4 days ago. Overall the rash has gotten better. She comes to the emergency room today because of body aches and increasing cough. She also had some neck pain earlier. Her daughter drove her to the hospital. No definite fever. She has had some nausea but no vomiting. Related Data Home Medications ?Medication ?Instructions ?Recorded ?Confirmed albuterol sulfate 2.5 mg/3 mL 2.5 mg inhalation Q4-6H PRN 03/07/21 04/03/24 (0.083 %) solution for nebulization Wheezing famotidine 20 mg tablet 20 mg PO DAILY@0800 03/07/21 04/03/24 pravastatin 40 mg tablet 40 mg PO DAILY@0800 03/07/21 04/03/24 turmeric root extract 500 mg 500 mg PO DAILY@0800 09/19/21 04/03/24 capsule Oxygen Home Use 09/22/22 04/03/24 nebulizers 09/22/22 04/03/24 alprazolam 0.25 mg tablet 0.25 mg PO DAILY PRN Anxiety 08/26/23 04/03/24 apixaban 5 mg tablet (Eliquis) 5 mg PO BID 08/26/23 04/03/24 citalopram 20 mg tablet 40 mg PO DAILY 08/26/23 04/03/24 fluticasone propionate 50 50 mcg intranasal DAILY PRN 08/26/23 04/03/24 mcg/actuation nasal allergies spray,suspension (Flonase Allergy Relief) furosemide 40 mg tablet 40 mg PO BID 08/26/23 04/03/24 ibuprofen 800 mg tablet 800 mg PO TID PRN Pain 08/26/23 04/03/24 ropinirole 0.25 mg tablet 0.25 mg PO BID 08/26/23 04/03/24 ipratropium bromide 42 mcg (0.06 2 spray intranasal TID 09/23/23 04/03/24 %) nasal spray potassium chloride 20 mEq 20 meq PO DAILY 09/23/23 04/03/24 tablet,extended release(part/cryst) Previous Rx's ?Medication ?Instructions ?Recorded albuterol sulfate 90 mcg/actuation 2 puff inhalation Q4-6H PRN 02/17/21 aerosol inhaler (ProAir HFA) shortness of breath or wheezing #8.5 grams montelukast 10 mg tablet 10 mg PO DAILY #30 tabs 06/07/23 fluticasone fur. 100 mcg-umeclid 1 ea PO DAILY #60 ea 09/20/23 62.5 mcg-vilant 25 mcg inhalat.powder (Trelegy Ellipta) gabapentin 300 mg capsule 300 mg PO BEDTIME #30 caps 12/23/23 trazodone 50 mg tablet 50 mg PO BEDTIME sleep 30 days #30 02/03/24 tabs ascorbic acid (vitamin C) 500 mg 500 mg PO DAILY #90 tabs 04/03/24 chewable tablet (Vitamin C) ferrous sulfate 325 mg (65 mg 325 mg PO DAILY #90 tabs 04/03/24 iron) tablet diltiazem HCl 240 mg 240 mg PO DAILY #90 caps 05/08/24 capsule,extended release 24 hr acetaminophen 500 mg tablet 1,000 mg (2 x 500 mg) PO TID PRN 05/15/24 pain #20 tabs azithromycin 250 mg tablet 250 mg PO DAILY 4 days #4 tabs 05/15/24 cefuroxime axetil 500 mg tablet 500 mg PO BID #14 tabs 05/15/24 prednisone 20 mg tablet 20 mg PO DAILY #12 tabs 05/15/24 valacyclovir 500 mg tablet 500 mg PO 3XD #21 tabs 05/15/24 (Valtrex) Allergies Allergy/AdvReac Type Severity Reaction Status Date / Time No Known Allergies Allergy Verified 05/15/24 11:51 Review of Systems Review of Systems: Yes all other systems are reviewed and are negative PMFSH Past Medical History Medical History COPD (chronic obstructive pulmonary disease) PAF (paroxysmal atrial fibrillation) Atrial fibrillation with rapid ventricular response Lung nodule Pleural effusion Pulmonary hypertension Mitral annular calcification Aortic valve calcification Cough Sinusitis Chronic respiratory failure Pneumonia Surgical History No pertinent past surgical history Family History Family History (Updated 04/03/24 @ 14:50 by Jenna Gr) Brother Myocardial infarction Father Stroke Maternal Grandmother Bone cancer Social History Social History (Updated 04/03/24 @ 14:50 by Jenna Gr) Household Members: Children Household Members Other:: Daughter and family Housing: House Do you presently have visiting nurse or other home services: Yes (meals on wheels) Alcohol intake: never Patient Tobacco Use Status: Never used Tobacco Tobacco use type: Cigarette e-Cigarette/Vaping Use: Never Used Second Hand Smoke Exposure: No Advance Directives Date on File: 06/21/23 service: No Current occupational status: retired Physical Exam ED Vital Signs: Vital Signs - 24 hr 05/15/24 11:49 05/15/24 13:00 05/15/24 15:04 Temperature 98.9 F Pulse Rate 83 68 92 Respiratory Rate 22 H 18 22 H Blood Pressure 149/58 H 150/60 H Pulse Oximetry 98 95 Oxygen Delivery Method Room Air Nasal Cannula Oxygen Flow Rate 2 05/15/24 15:52 Temperature 98.1 F Pulse Rate 92 Respiratory Rate 22 H Blood Pressure 150/60 H Pulse Oximetry 95 Oxygen Delivery Method Nasal Cannula Oxygen Flow Rate 2 BMI result Body Mass Index 31.8 Const Other: The patient is awake and alert with a normal mental status. She has the appearance of a somewhat frail and chronically ill-appearing 83-year-old. She does not seem obviously acutely ill. She is wearing nasal oxygen as she does at home. Her mental status is clear. She is not exhibiting any obvious signs of increased respiratory difficulty. Not seem obviously acutely ill. HENMT Other: Face is symmetrical. Mucous membranes moist. Eyes General: appearance normal, both eyes and all related structures Neck Neck: Yes no JVD Resp Other: Slight crackles at the bases, more so on the right. No increased work of breathing. Cardio Rate: regular rate Rhythm: regular rhythm Heart sounds: S1 normal heart sound present and S2 normal heart sound present GI Other: Abdomen is soft and nontender Back/Spine/Pelvis Other: The patient has some skin lesions in the right lower back that seemed to wrap around the side in roughly the region of the L1 dermatome. Skin Other: There is a line of skin lesions that seem to be in a healing stage in the region of the L1 dermatome. Neuro Other: The patient is awake and alert with a normal mental status. Cranial nerves are grossly intact. She moves her extremities symmetrically and appropriately. She seems neurologically intact. No altered mental status Extrem Other: No peripheral edema. Course Course Course Narrative: RME performed by Rashida Reyes PA-C. Patient is an 83 year old assigned female at presenting to the emergency department with neck pain, worsening shortness of breath, and body aches. Patient states that 1 week ago she was diagnosed with shingles and started the medication she was prescribed but now she is having significant neck pain to where she can't move her neck downward and feels significantly worse. Detailed physical exam and review of systems are deferred to the html developer. EKG, labs, and swabs ordered. Patient placed back in the waiting room pending room availability and results. Medications Administered Discontinued Medications Generic Name Dose Route Start Last Admin Trade Name Freq PRN Reason Stop Dose Admin Albuterol/Ipratropium 3 ml 05/15/24 12:39 05/15/24 12:57 Albuterol/Iprat 2.5/0.5mg 3 Ml Ampul.Neb INHALE 05/15/24 12:40 3 ml ONCE ONE Administration Azithromycin 500 mg 05/15/24 15:00 05/15/24 15:26 Azithromycin 500 Mg Tablet PO 05/15/24 15:01 500 mg ONCE ONE Administration Cefuroxime Axetil 500 mg 05/15/24 14:59 05/15/24 15:26 Cefuroxime Axetil 500 Mg Tablet PO 05/15/24 15:00 500 mg ONCE ONE Administration Dexamethasone Sodium Phosphate 8 mg 05/15/24 12:39 05/15/24 13:02 Dexamethasone Sod Phosphate 4 Mg/Ml Vial IVPUSH 05/15/24 12:40 8 mg ONCE ONE Administration Acetaminophen 1,000 mg in 100 mls @ 400 mls/hr 05/15/24 13:52 05/15/24 14:52 Ofirmev IV 05/15/24 14:06 Infused ONCE ONE Infusion Medical Decision Making Medical Decision Making [facility] Narrative: The patient is an 83-year-old female with a history of COPD who was on oxygen at home. Almost 2 weeks ago she developed a rash in her right lower back radiating to her right groin. She happened to have an appointment with her fire pilot Dr. Gloria at around the time the rash came out and she was told that she probably has shingles and she was prescribed a course of valacyclovir which she has taken. The rash has apparently been getting somewhat better but over the last few days the patient has had an increased cough and body aches. In particular when she coughs she has a lot of pain in the left side of her neck. Her daughter says that she was moaning at home in pain and brought her to the emergency room today. No definite fevers at home. No vomiting. Here the patient's workup revealed crackles on exam. Her chest x-ray was read as possibly showing some mild pulmonary edema but her BNP is better than it has been in the past. She has no JVD. Clinically I would be more concerned about possibly some kind of an atypical pneumonia than congestive heart failure. Overall she does not look overtly toxic. She was given bronchodilator treatments and IV steroids and was also started on cefuroxime and azithromycin. She felt considerably better after receiving a dose of IV acetaminophen and looked cheerful and well enough to go home. She will be discharged with a prescription for cefuroxime and azithromycin. She should continue to use Tylenol at home for pain. With regard to her shingles rash I think this has begun to resolve. Lab Data 05/15/24 12:14 05/15/24 12:14 Labs: Lab Results 05/15/24 05/15/24 05/15/24 Range/Units 12:14 12:17 12:28 WBC 10.0 (4.8-10.8) X10*3/uL RBC 4.12 L (4.20-5.50) X10*6/uL Hgb 9.9 L (12.0-16.0) g/dl Hct 32.7 L (37.0-47.0) % MCV 79.4 L (80.0-98.0) fL MCH 24.0 L (27.0-33.0) pg MCHC 30.3 L (31.0-35.0) g/dl RDW 21.2 H (11.0-16.0) % Plt Count 388 (160-400) X10*3/uL MPV 9.3 L (9.4-12.3) fL Immature Gran % (Auto) 0.6 H (0.0-0.4) % Neut % (Auto) 76.3 H (45-73) % Lymph % (Auto) 12.7 L (20-40) % [place] % (Auto) 9.0 (2-11) % Eos % (Auto) 0.6 (0-4) % Baso % (Auto) 0.8 (0-2) % Lymph # (Auto) 1.3 (1.2-4.9) X10*3/uL [place] # (Auto) 0.9 (0.1-1.2) X10*3/uL Eos # (Auto) 0.1 (0.0-0.4) X10*3/uL Baso # (Auto) 0.1 (0.0-0.2) X10*3/uL Abs Immat Gran (auto) 0.06 H (0.00-0.03) X10*3/uL Absolute Neuts (auto) 7.6 (2.0-8.3) x10*3/uL Absolute Nucleated RBC 0.000 (0.0-0.012) X10*3/uL Nucleated RBC % (auto) 0.0 (0.0-0.2) /100WBC Hold Purple Top SEE NOTE PT 13.7 H (10.9-12.4) SEC INR 1.2 H (0.9-1.1) APTT 32.7 (26.0-36.8) SEC Sodium 137 (135-145) mmol/L Potassium 3.7 (3.3-5.1) mmol/L Chloride 101 (96-108) mmol/L Carbon Dioxide 26 (22-29) mmol/L Anion Gap 14 (12-20) BUN 7 L (9-16) mg/dL Creatinine 0.59 (0.5-1.4) mg/dL Estim Creat Clear Calc 78.4 Estimated GFR > 60 Random Glucose 102 (60-115) mg/dL Lactic Acid 0.7 (0.5-2.0) mmol/L Calcium 9.3 (8.4-10.2) mg/dL Magnesium 1.9 (1.6-2.6) mg/dL Total Bilirubin 0.4 (0.0-1.0) mg/dL AST 23 (5-31) U/L ALT 15 (0-31) U/L Alkaline Phosphatase 97 (39-117) U/L Troponin I High Sens 14.2 (<3.5-17.0) ng/L C-Reactive Protein 11.56 H (< or = 0.50) mg/dL B-Natriuretic Peptide 170 H (<100) pg/mL Total Protein 7.8 (6.5-8.0) g/dL Albumin 3.7 (3.5-5.0) g/dL Influenza Type A (PCR) NEGATIVE (Negative) Influenza Type B (PCR) NEGATIVE (Negative) RSV RNA Qual (PCR) NEGATIVE (Negative) SARS-CoV-2 RNA (RT-PCR) NEGATIVE (Negative) Independent Interpretation I performed an independent interpretation of an: EKG Interpretation: EKG at 12:24 shows sinus rhythm with a sinus rhythm and first-degree AV block. Ventricular rate is 89 beats per minute. No definite acute ischemic changes Discharge Plan Discharge Clinical Impression: Acute neck pain, Acute exacerbation of chronic obstructive pulmonary disease, Shingles rash Patient Disposition: Home, Self-Care Additional Instructions: I think the pain in your neck is probably muscular pain from coughing. I think you may have an exacerbation of your COPD. He has been started on a course of antibiotics and also a course of steroid medications. Please take your next dose of the antibiotics tomorrow morning. Please take your next dose of the prednisone (the steroid medication) tomorrow morning as well. For pain you may take 2 extra-strength acetaminophen (Tylenol) every 8 hours. Use your albuterol at home to help with your coughing. I would recommend taking albuterol every 4 hours. Please contact your regular doctor's office for a prompt follow up appointment. Return to the emergency room if significantly worse. Prescriptions: New cefuroxime axetil 500 mg tablet 500 mg PO BID Qty: 14 0RF azithromycin 250 mg tablet 250 mg PO DAILY 4 Days Qty: 4 0RF Rx Instructions: start on day 2 of therapy prednisone 20 mg tablet 20 mg PO DAILY Qty: 12 0RF Rx Instructions: Take 3 tablets by mouth daily for 2 days then 2 tablets daily by mouth for 3 days acetaminophen 500 mg tablet 1,000 mg PO TID PRN (Reason: pain) Qty: 20 0RF No Action montelukast 10 mg tablet 10 mg PO DAILY Qty: 30 11RF Trelegy Ellipta 100-62.5-25 mcg blister with device 1 ea PO DAILY Qty: 60 11RF gabapentin 300 mg capsule 300 mg PO BEDTIME Qty: 30 6RF diltiazem HCl 240 mg capsule,extended release 24hr 240 mg PO DAILY Qty: 90 3RF albuterol sulfate [ProAir HFA] 90 mcg/actuation HFA aerosol inhaler 2 puff inhalation Q4-6H PRN (Reason: shortness of breath or wheezing) Qty: 8.5 0RF furosemide 40 mg tablet 40 mg PO BID Eliquis 5 mg tablet 5 mg PO BID alprazolam 0.25 mg tablet 0.25 mg PO DAILY PRN (Reason: Anxiety) citalopram 20 mg tablet 40 mg PO DAILY ropinirole 0.25 mg tablet 0.25 mg PO BID ibuprofen 800 mg tablet 800 mg PO TID PRN (Reason: Pain) fluticasone propionate [Flonase Allergy Relief] 50 mcg/actuation [place],Suspension 50 mcg INTRANASAL DAILY PRN (Reason: allergies) ferrous sulfate 325 mg (65 mg iron) Tablet 325 mg PO DAILY Qty: 90 3RF ascorbic acid (vitamin C) [Vitamin C] 500 mg Tablet,Chewable 500 mg PO DAILY Qty: 90 3RF valacyclovir [Valtrex] 500 mg Tablet 500 mg PO 3XD Qty: 21 1RF Rx Instructions: Take 500 mg Q 8 hours for 7 days albuterol sulfate 2.5 mg /3 mL (0.083 %) solution for nebulization 2.5 mg inhalation Q4-6H PRN (Reason: Wheezing) famotidine 20 mg tablet 20 mg PO DAILY@0800 pravastatin 40 mg tablet 40 mg PO DAILY@0800 (DME) nebulizers Mis See Rx Instructions .Route Rx Instructions: As directed ([facility]) Oxygen Home Use Kit See Rx Instructions .Route Rx Instructions: As directed turmeric root extract 500 mg capsule 500 mg PO DAILY@0800 potassium chloride 20 mEq tablet,ER particles/crystals 20 meq PO DAILY ipratropium bromide 42 mcg (0.06 %) spray,non-aerosol 2 spray intranasal TID Rx Instructions: administer into each nostril trazodone 50 mg tablet 50 mg PO BEDTIME 30 Days Qty: 30 6RF Referrals: Lizandro Gibbs MD [Primary Care Provider] - (Neck pain, cough, recent shingles) Interventions: ED Discharge Assessment Last Done: 05/15/24 15:52 Discharge Date/Time: 05/15/24 15:30 Print Language: Rw[place]an
--- NOTE | 2024-05-15 11:55 | ECG_ITS ---
Test Reason : sob Blood Pressure : / mmHG Vent. Rate : 089 BPM Atrial Rate : 089 BPM P-R Int : 220 ms QRS Dur : 084 ms QT Int : 366 ms P-R-T Axes : 080 059 056 degrees QTc Int : 445 ms Sinus rhythm with sinus arrhythmia with 1st degree A-V block Otherwise normal ECG When compared with ECG of 31-AUG-2023 11:57, Previous ECG has undetermined rhythm, needs review ST no longer depressed in Anterior leads T wave inversion no longer evident in Inferior leads Nonspecific T wave abnormality no longer evident in Lateral leads Referred By: Rashida Reyes Electronically Signed By:Sen Leblanc
[2024-05-15 12:22] LABS: MANUAL DIFF FLAG NO
[2024-05-15 12:24] LABS: Basophils Absolute Auto 0.1 X10*3/uL (0.0-0.2); Basophils Percent Auto 0.8 % (0-2); Eosinophils Absolute Auto 0.1 X10*3/uL (0.0-0.4); Eosinophils Percent Auto 0.6 % (0-4); Hematocrit 32.7 % (37.0-47.0); Hemoglobin 9.9 g/dl (12.0-16.0); Imm Gran Abs Auto 0.06 X10*3/uL (0.00-0.03); Imm Gran Pct Auto 0.6 % (0.0-0.4); Lymphocytes Absolute Auto 1.3 X10*3/uL (1.2-4.9); Lymphocytes Percent Auto 12.7 % (20-40); Mean Corpuscular HGB Conc 30.3 g/dl (31.0-35.0); Mean Corpuscular Volume 79.4 fL (80.0-98.0); Mean Platelet Volume 9.3 fL (9.4-12.3); Monocytes Absolute Auto 0.9 X10*3/uL (0.1-1.2); Neutrophils Absolute Auto 7.6 x10*3/uL (2.0-8.3); Neutrophils Percent Auto 76.3 % (45-73); Platelet Count 388 X10*3/uL (160-400); Red Blood Count 4.12 X10*6/uL (4.20-5.50); Red Cell Distribution Width 21.2 % (11.0-16.0)
[2024-05-15 12:30] LABS: INTERNATIONAL NORM RATIO 1.2 (0.9-1.1); Prothrombin Time 13.7 SEC (10.9-12.4)
[2024-05-15 12:32] LABS: Partial Thromboplastin Time 32.7 SEC (26.0-36.8)
[2024-05-15 12:39] LABS: Lactic Acid 0.7 mmol/L (0.5-2.0)
[2024-05-15 12:40] LABS: Alanine Aminotransferase 15 U/L (0-31); Albumin Level 3.7 g/dL (3.5-5.0); Alkaline Phosphatase 97 U/L (39-117); Anion Gap 14 (12-20); Aspartate Amino Transferase 23 U/L (5-31); Bilirubin Total 0.4 mg/dL (0.0-1.0); Blood Urea Nitrogen 7 mg/dL (9-16); Calcium 9.3 mg/dL (8.4-10.2); Carbon Dioxide 26 mmol/L (22-29); Chloride 101 mmol/L (96-108); Creatinine Clr Calc Pharmacy 78.4; Estimated Glomerular Filt Rate > 60; Glucose Random 102 mg/dL (60-115); Magnesium 1.9 mg/dL (1.6-2.6); Potassium 3.7 mmol/L (3.3-5.1); Sodium 137 mmol/L (135-145); Total Protein 7.8 g/dL (6.5-8.0)
[2024-05-15 12:47] LABS: Troponin-I High Sensitivity 14.2 ng/L (<3.5-17.0)
[2024-05-15] MEDS: Albuterol/Iprat 2.5/0.5MG 3 ML AMPUL.NEB INHALE (12:57)
[2024-05-15 12:59] LABS: C Reactive Protein 11.56 mg/dL (< or = 0.50)
[2024-05-15 13:00] VITALS: PULSE 68; RESP 18; O2SAT 99
[2024-05-15] MEDS: dexAMETHasone sod phosphate 4 MG/ML VIAL 8 MG IVPUSH (13:02)
[2024-05-15 13:15] LABS: B Type Natriuretic Peptide 170 pg/mL (<100)
[2024-05-15 13:24] LABS: Influenza A PCR NEGATIVE (Negative); Influenza B PCR NEGATIVE (Negative); Resp Syncy Virus RNA Qual PCR NEGATIVE (Negative); SARS COV2 PCR INHOUSE NEGATIVE (Negative)
[2024-05-15] MEDS: Acetaminophen 1,000 MG/100 ML PIGGYBACK 400 MG IV (14:09)
[2024-05-15 15:04] VITALS: BP 150/60; PULSE 92; RESP 22; O2SAT 95
[2024-05-15] MEDS: Azithromycin 500 MG TABLET PO (15:26)
[2024-05-15] MEDS: cefuroxime axetiL 500 MG TABLET PO (15:26)
[2024-05-15 15:52] VITALS: BP 150/60; PULSE 92; RESP 22; TEMP 36.7; O2SAT 95
== END 2024-05-15 15:30 | disposition home or self-care (01) ==
PROVIDERS: Physician Assistant Medical; Emergency Provider Emergency Medicine; PCP Internal Medicine
DX: J44.1 Chronic obstructive pulmonary disease with (acute) exacerbation (principal); M54.2 Cervicalgia; B02.8 Zoster with other complications; R06.02 Shortness of breath; R94.31 Abnormal electrocardiogram [ECG] [EKG]; Z79.899 Other long term (current) drug therapy; Z03.818 Encounter for observation for suspected exposure to other biological agents ruled out
CPT/HCPCS: 0241U; 36415; 71046; 80053; 83605; 83735; 83880; 84484; 85025; 85610; 85730; 86140; 87040; 93005; 94640; 96365; 96375; 99284; 99285; J0131; J1100

== ENCOUNTER → 2024-05-15 11:55 | Outpatient (BNV) | payer OTHER, SELFPAY | PROVIDERS: Emergency Provider Emergency Medicine; PCP Internal Medicine; Visit Provider Internal Medicine Cardiovascular Disease | DX: R06.02 Shortness of breath (principal); R94.31 Abnormal electrocardiogram [ECG] [EKG] | CPT/HCPCS: 93010 ==

== ENCOUNTER → 2024-05-15 12:38 | Outpatient (BNV) | payer OTHER, SELFPAY | PROVIDERS: Emergency Provider Emergency Medicine; PCP Internal Medicine; Visit Provider Radiology Diagnostic Radiology | DX: J44.9 Chronic obstructive pulmonary disease, unspecified (principal) | CPT/HCPCS: 71046 ==

== ENCOUNTER 2024-06-09 13:55 | Outpatient (AMB) | payer OTHER, SELFPAY ==
--- NOTE | 2024-06-09 14:18 | MHC.OFFVIS ---
Vital Signs 06/09/24 14:19 Height 5 ft 4 in BP 102/48 L Blood Pressure Location Lt brachial Position Sitting Pulse 73 Pulse Source Pulse Oximeter Pulse Oximetry (%) 96 Oxygen Delivery Method Nasal Cannula Oxygen Flow Rate 2 Intake Visit Reasons: COPD Electrophysiology Tech Required: No Allergies No Known Allergies Allergy (Verified 06/09/24 14:23) HPI Comments Details: The patient is a 83 -year-old woman with known COPD also chronic respiratory failure on oxygen. Apparently she was in usual state health until recently her became sick with RSV and was admitted to the [facility]. For the last couple weeks she has had worsening respiratory symptoms. She has been evaluated twice by her primary care doctor. She has been given antibiotics and prednisone. However, she continues to worsen. Today she has been using 4 L pulse on her oxygen device. She is using a mask and she was noted to be 88%. However, the patient is not activating the oxygen based on the fact that she her nasal passages are congested and she is breathing through her mouth. Therefore I switched her oxygen to continues 2 L and she maintain a pulse ox of 92%. I explained to the patient that she is to avoid using the conserving device valve at this time. The patient was provided additional antibiotics and prednisone. If she is no better in 24-48 hours. she has to go to the hospital. However, if she worsens she also she go the hospital. ??? 08/04/2022 the patient is here for a sick visit. Apparently she has been having issues with heart. She was admitted briefly at [facility] and then here [facility] found to have AFib with rapid ventricular response. She was placed on Eliquis and ultimately had her calcium channel sary increase for rate control. The patient has been having worsening cough however. Her cough is persistent and moderate to severe. At times is productive of yellow phlegm. Having hard time sleeping because of the cough. She has tried multiple utwr-loe-xysywqb remedies without any significant improvement. On examination seems like she has a good amount of purulent secretions that are coming down her posterior pharynx suggesting a component of sinusitis. the patient also had chest x-rays while being in the hospital July demonstrating some degree of atelectasis and minimal pleural effusion. We talked about her medications including lisinopril that is likely not helping with her cough. Although as part of the primary cause of the cough. At this point based on the severity of the cough will be reasonable to switch her to an ARB. 09/22/2022 the patient is here for pulmonary follow-up visit. She is finally feeling better. The cough significantly better. She still has a productive cough and brings up phlegm. We did talk about performing CPT with flutter valve. She does have 1 available and she can use it twice a day. Explained to her that she is always going to bring up some phlegm. At this time the azithromycin 3 times a week seems to be helpful. Coming off the lisinopril is also helpful. The Trelegy inhaler she is using once a day with good effect. Sometimes it makes her cough. I did instruct her to she is taking little softer so she does not irritate too much to the upper airway. The AFib seems to be in good control. We did review her x-ray from July 10 with demonstrating some minimal atelectasis and scoliosis. And at this point will plan to follow-up in 4 months. If the patient has any difficulties prior to that she is to call the office for an earlier evaluation. 11/19/2022 the patient is here for a pulmonary follow-up visit. The patient is feeling better. Her Wilfred inhibitor was stopped and her cough is improved. Although she still has a little productive phlegm. It does bother her. Does not seen significant improvement with the azithromycin. Will go ahead and stop it. I did request a sputum culture will try couple weeks of doxycycline to see if we can clear any significant mucus. Recently she did have a CT scan of the chest done beginning of November 2022 in a personally reviewed it. She does have some moderate degree amount of emphysema and also scoliosis. She also has atelectasis primarily in the left hemithorax there is a segment that appears to be nearly completely obstructed. If the patient continues symptomatic consider bronchoscopy to assess that airway to make sure there was no endobronchial blockage. But at this point clinically the patient is better overall and will try to minimize any semi invasive procedures. Will reassess in a few months. 01/20/2023 the patient is here for pulmonary follow-up visit. Overall the patient is feeling better. She did complete the antibiotics and the chest physical therapy. She continues to have dyspnea on exertion. She also has some fluid overload issues. Her x-ray she had back in July she did have small pleural effusions as well. The patient will benefit from additional diuresis specially with pulmonary hypertension. Holding off on any invasive or semi-invasive diagnostic interventions at this time. She continues use the oxygen with good effect. She continues use her respiratory therapy as well. Will go ahead and prescribe Lasix that she can use for 3-5 days and will monitor closely her weight and her lower extremity edema. If the patient continues use the diuretics she will need to have blood work to monitor her electrolytes and kidney function. 04/29/2023 the patient is here for sick visit. The patient apparently was in his usual state health until sometime in the beginning of April when she started developing worsening respiratory symptoms. The patient was brought to the [facility] ER where she was evaluated. She was admitted to the hospital with COPD exacerbation. She was treated with steroids antibiotics and also respiratory treatments. The patient was able to be discharged. However, she states that upon discharge her cough got worse. She started developing worse chest congestion and also sinus congestion. Moderate severity. She is been using her oxygen more and had to increase the dose. She is been having hard time. She has been on prednisone tapering down currently on 20 mg. on exam she is very rhonchorous with a prolonged expiratory phase and wheezing. She was given a Xopenex and hypertonic saline nebulizer treatment in a sputum culture was able to be sent to the laboratory. In the meantime the patient appears to have a postviral bacterial infection in the lower respiratory now so likely the upper respiratory tract. Therefore, will start her on broad-spectrum antibiotics and will also extend her prednisone use. If the patient is no better she will come in for an x-ray and she will call the office. However, if her symptoms worsen she may need to go back to the ER. 05/13/2023 the patient is here for pulmonary follow-up visit. She is no better. She is having still significant cough. Productive in nature. Has a hard time sleeping because of the cough. Moderate severity. Feels is more over sinuses now. She does have Afrin nasal spray that she can use to 5 days. She did complete the prednisone. She also completed the Vantin. Based on the fact that she is still very congested will go ahead and start her on levofloxacin. The patient can start his low-dose prednisone as well to try to help with the inflammation. And will follow-up with her after her CT scan. The patient develops any worsening symptoms she can always call and we can consider bronchoscopy. She is also complaining of some pleuritic chest discomfort. Currently better. I did advise that if her discomfort returns or if it worsens that she should go to the ER for further evaluation. 07/22/2023 the patient has a telehealth visit today. Her family sick with COVID she does not have COVID as of yet but taking precautions. She is still complaining of productive cough. Her cough is yellowish and green in color. Moderate severity. Sometimes she gets anxious because of the burden of mucus. We did start him on Augmentin but has not seen any significant improvement after several days. She has not finding that she is wheezing at this time. Therefore will hold off on any prednisone. She did respond better to Levaquin in the past. She may have an enteric resistant organism. We did request a sputum culture but she was not able to perform just yet. Will go ahead and switch her again to Levaquin to see if she can feel better. If not will definitely have to get a sputum culture. We did review her recent CT scan of the chest that she had demonstrating interval improvement in the left upper lobe pulmonary nodule going from 9 mm spiculated to now 4.8 mm nodule. This is very reassuring. She does have a new density in the left lower lobe which is not too concerning likely some degree of atelectasis but is definitely new will need follow-up. The patient will return in a couple months to see how her progresses and otherwise will call sooner if her symptoms are not any better. 09/23/2023 the patient is here for hospital follow-up visit. She was recently hospitalized with chest pain and shortness of breath. She was found to have atrial fibrillation with rapid ventricular response. She was placed on amiodarone. The patient did have a chest x-ray done demonstrating hyperinflated lungs and also a question of a broken lead. She will follow-up with cardiology for that. In the meantime she has been on the conserving device tank. Although does not always breathe through her nose and is not enough oxygen. She was found to be hypoxic on arrival. She was down to the mid 80s on 3-4 L pulse. Therefore she was ambulated and the patient needs to be on continues oxygen. Will go ahead and let her [employer] company known to provide her with oxygen times with a regular valve so she can use 2 L at rest and 3 L with activity to maintain a pulse ox above 90%. She continues with respiratory therapy. The patient does have a productive cough. Unfortunately we can not place her on macrolide therapy because she is on amiodarone. Therefore will start her on doxycycline daily as a prophylactic dose to see if we can treat her chronic bronchitis. Will follow-up in 6-8 weeks. 02/03/2024 the patient is here for a pulmonary follow-up visit. Overall she is feeling a lot better. She has been on the Lasix with good response. Her lower extremity edema still there. Is causing some soreness. She had been on 240 mg of potassium that was decreased down to 180. indeed he still can be related to the calcium channel blockers. I will make note of it and let her safety lamp keeper note to consider switching her to a beta-sary as this should be okay from a pulmonary standpoint. In the meantime she is going to continue with diuresis. She knows to weigh herself daily and if she gains more than 2 lb in 24 hours she has to take additional diuretics. The patient also needs to monitor closely her electrolytes. From a respiratory status she does continue to use the oxygen with good effect. She does use it 24 hours a day. Her last chest x-ray did demonstrate some heart failure. This is back in September. I do not appreciate any crackles at this time. Therefore do believe her volume status is much better. Will go ahead and repeat her chest x-ray prior to her next follow-up visit in 3-4 months. If the patient develops any worsening symptoms prior to that she will call for an earlier assessment. In addition to that she is complaining about some insomnia. She has been using Benadryl at nighttime. I will give her prescription for trazodone that she can start to see if this can provide some relief without using Benadryl that can result in other adverse effects. 06/09/2024 the patient is here for a pulmonary follow-up visit. The patient overall is doing okay. She continues with respiratory medicine. She does use her oxygen 24 hours a day. We did take her off the oxygen see how she did at rest off the oxygen and her oxygen was between 88-91%. Therefore she is able to take off her oxygen under supervision and with deep breathing she can keep her oxygen around 90-91%. She can take breaks to allow knows to rest. She also has a Ventimask and she can use at times. She did go to the hospital with significant malaise and pain. She was found to have shingles. She did have a chest x-ray which I review demonstrating some slight vascular congestion some Uziel B lines. In addition to that she had blood work done including an elevated CRP likely from the infection. [facility] Medical History COPD (chronic obstructive pulmonary disease) PAF (paroxysmal atrial fibrillation) Atrial fibrillation with rapid ventricular response Lung nodule Pleural effusion Pulmonary hypertension Mitral annular calcification Aortic valve calcification Cough Sinusitis Chronic respiratory failure Pneumonia Surgical History (Reviewed 03/14/24 @ 10:26 by Chandrika Belcher [facility] [address]) No pertinent past surgical history Family History (Updated 04/03/24 @ 14:50 by Jenna Gr) Brother Myocardial infarction Father Stroke Maternal Grandmother Bone cancer Social History Household Members: Children Household Members Other:: Daughter and family Housing: House Do you presently have visiting nurse or other home services: Yes (meals on wheels) Alcohol intake: never Patient Tobacco Use Status: Never used Tobacco Tobacco use type: Cigarette e-Cigarette/Vaping Use: Never Used Second Hand Smoke Exposure: No Advance Directives Date on File: 06/21/23 service: No Current occupational status: retired Review of Systems Const Reports difficulty sleeping, Denies fever(s) and Denies night sweats ENT Denies change in voice, Reports nasal congestion, Reports nasal discharge and Reports post nasal drip Card Denies chest pain, Reports leg edema and Reports dyspnea on exertion Resp Reports cough, Denies hemoptysis and Reports dyspnea on exertion GI Denies abdominal pain Musc Denies no additional complaints Neuro Denies Neuro-related abnormal movements Psych Denies no additional complaints Celestine/Lymph Denies easy bleeding and Denies lymphadenopathy Physical Exam Vital Signs: Last Vital Signs Pulse 73 06/09/24 14:19 BP 102/48 L 06/09/24 14:19 Pulse Ox 96 06/09/24 14:19 Oxygen Delivery Method Nasal Cannula 06/09/24 14:19 Oxygen Flow Rate 2 06/09/24 14:19 Const General: alert Orientation/consciousness: patient oriented x3 Neck Neck: Yes normal visual inspection, Yes full ROM, Yes no lymphadenopathy and Yes supple Chest Chest palpation & inspection: normal inspection of the chest Resp Effort & Inspection: normal respiratory effort Auscultation: no rales, no rhonchi, no wheezes and diminished lung sounds Cardio Rate: regular rate Rhythm: regular rhythm Heart sounds: S1 normal heart sound present and S2 normal heart sound present GI Palpation (GI): Soft to palpation and nontender Auscultation: normal bowel sounds Skin General skin exam: no rashes or lesions noted Neuro General: patient oriented x3 Extrem General: No clubbing, No cyanosis and Yes edema Assessment & Plan Assessment & Plan (1) COPD (chronic obstructive pulmonary disease): Code(s): J44.9 - Chronic obstructive pulmonary disease, unspecified Category: Medical Qualifiers: COPD type: emphysema Emphysema type: centrilobular Qualified Code(s): J43.2 - Centrilobular emphysema (2) Chronic respiratory failure: Code(s): J96.10 - Chronic respiratory failure, unspecified whether with hypoxia or hypercapnia Category: Medical Qualifiers: Respiratory failure complication: hypoxia Qualified Code(s): J96.11 - Chronic respiratory failure with hypoxia (3) Cough: Code(s): R05.9 - Cough, unspecified Category: Medical Qualifiers: Cough type: chronic Qualified Code(s): R05.3 - Chronic cough (4) Pulmonary hypertension: Code(s): I27.20 - Pulmonary hypertension, unspecified Category: Medical (5) Pleural effusion: Code(s): J90 - Pleural effusion, not elsewhere classified Category: Medical (6) Lung nodule: Code(s): R91.1 - Solitary pulmonary nodule Category: Medical Plan hypertonic saline for CPT oxygen supplementation 2L/min at rest and 3 liters/min with activity Trazodone for sleep Trelegy daily short-acting beta agonist as needed Nasal saline at night diuresi as tolerated, daily weights. F/U 3-4 months Coding Level of Care Code Est Pt Level 4 (20779) Complex EM visit Add On G2211 Diagnoses Centrilobular emphysema J43.2 COPD type: emphysema Emphysema type: centrilobular Chronic respiratory failure with hypoxia J96.11 Respiratory failure complication: hypoxia Chronic cough R05.3 Cough type: chronic Pulmonary hypertension I27.20 Pleural effusion J90 Lung nodule R91.1 Time Spent (min) 17
[2024-06-09 14:19] VITALS: BP 102/48; PULSE 73; O2SAT 96
--- OUTSIDE RECORDS SUMMARY | 2024-06-14 10:15 | XMS_ITS | Data Portability ---
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 Plan of Treatment Reminders Order Date Submit Date Provider Last Modified By Organization Details Last Modified Time Details Appointments None recorded. Lab None recorded. Referral emergency medicine referral 2021 022 [email or web address] Not available 15:25:40 Procedures None recorded. Surgeries None recorded. Imaging None recorded. Medication Orders None recorded. Patient TargetsNo targets recorded. Patient Instructions Encounter Date Encounter Id Patient Instructions Last Modified By Organization Details Last Modified Time 07/02/2022 [id number] cough: care instructions Not available 07/02/2022 14:59:31 Breathing Exercises for Lung Problems: Care Instructions Not available 07/02/2022 14:59:31 chronic obstructive pulmonary disease (COPD) flare-ups: care instructions Not available 07/02/2022 14:59:31 Go to the ER now Not available 07/02/2022 14:59:27 Reason for Referral Emergency Medicine Referral for Acute exacerbation of chronic obstructive pulmonary disease Referring Physician: [facility], Encounter Date: 07/02/2022 Problems Name Problem SNOMED Code Status Onset Date Resolution Date Notes Provider Name and Address Organization Details Recorded Time Chronic obstructive pulmonary disease 19810583 Active 2021 [facility] 14:28:17 Hypertensive disorder 51024344 Active 2021 [facility] 14:35:25 Hyperlipidemia 22519711 Active 2021 JACKELYN PÉREZCECINadine grover, PA - [facility] 14:35:44 Restless legs 39988349 Active 2021 JACKELYN grover, PA - [facility] 14:37:22 Problem Notes None recorded. Procedures Surgical History Date Name Laterality Status Provider Name and Address Organization Details Recorded Time Ankle arthroscopy/ surgery completed JACKELYN PÉREZSAPNA PA - [facility] 07/02/2022 14:36:58 Imaging Results None recorded. Procedure Notes None recorded. Medical Equipment None Reported. Allergies No known drug allergies Medications Name Sig Start Date Stop Date Status Note LastModified by Organization Details LastModified Time atorvastatin active Not Available Not Available Not Available Lasix active Not Available Not Availa ble Not Available Singulair active Not Available Not Joanna ilable Not Available lisinopril active Not Available Not Av ailable Not Available Multi Vitamin active Not Available Not Available Not Available Vitals Date Recorded Body height Body mass index (BMI) Body weight Oxygen saturation Oxygen saturation in Arterial blood by Pulse oximetry Respiratory rate Heart rate Oxygen saturation Oxygen saturation in Arterial blood by Pulse oximetry Inhaled oxygen flow rate Respiratory rate Systolic blood pressure Diastolic blood pressure Provider Name and Address Organization Details Last Updated DateTime 160.02 cm 28.9 kg/m2 63630.5 6 g 88 % 88 % 24 /min 90 /min 96 % 96 % 2 L/min 22 /min 156 mm[Hg] 69 mm[Hg] JACKELYN PÉREZCECINadine PA - [facility] 14:27:35 Date Recorded Oxygen saturation Oxygen saturation in Arterial blood by Pulse oximetry Inhaled oxygen flow rate Provider Name and Address Organization Details Last Updated DateTime 07/02/2022 99 % 99 % 2 L/min Trinh Lemus PA - [facility] 07/02/2022 15:02:33 Social History Question Answer Notes LastModified by Organizat ion Details LastModified Time Tobacco Smoking Status Former Smoker JACKELYN PÉREZCECINadine grover PA - [facility] 07/02/2022 14:36:26 What Is Your Level Of Alcohol Consumption? None [email or web address] Information not available 07/02/2022 When Did You Quit Smoking? 18+yearssin celastcigar ette Information not available 07/02/2022 Do You Use Any Illicit Or Recreational Drugs? No Information not available 07/02/2022 Have You Recently Traveled Abroad? No Information not available 07/02/2022 Do You Or Have You Ever Used Any Other Forms Of Tobacco Or Nicotine? No Information not available 07/02/2022 Sex: Unknown Functional Status None recorded. Mental Status None recorded. Family History Relationship Description Onset Age of this Age Resolved Age Notes LastModified by Organization Details LastModified Time Father Acute stroke [email or web address] Not avai lable 07/02/2022 14:36:05 Brother Myocardial infarction [email or web address] Not available 07/02 14:36:11 Notes:cancer - grandma Medical History No medical history recorded. Gynecological HistoryNo gynecological history recorded. Obstetrics History GPAL:G 0 P 0 0 0 0 Immunizations Vaccine Type Date Status Note Provider Nam e and Address Organization Details Recorded Time COVID-19, mRNA, LNP-S, bivalent, PF, 30 mcg/0.3 mL dose 06/14/2022 completed JACKELYN MACHNACZ null, PA - [facility] 07/02/2022 14:24:48 COVID-19, mRNA, LNP-S, PF, 30 mcg/0.3 mL dose 08/07/2020 completed JACKELYN MACHNACZ null, PA - [facility] 07/02/2022 14:24:48 Influenza, high-dose, trivalent, PF 04/06/2017 completed JACKELYN MACHNACZ null, PA - [facility] 07/02/2022 14:24:48 COVID-19, mRNA, LNP-S, PF, 30 mcg/0.3 mL dose 08/28/2020 completed JACKELYN MACHNACZ null, PA - [facility] 07/02/2022 14:24:48 COVID-19, mRNA, LNP-S, PF, 30 mcg/0.3 mL dose, shea-sucrose 11/04/2021 completed JACKELYN MACHNACZ null, PA - [facility] 07/02/2022 14:24:48 COVID-19, mRNA, LNP-S, PF, 30 mcg/0.3 mL dose 07/07/2021 completed JACKELYN MORA null, PA - [facility] 07/02/2022 14:24:48 Influenza, high-dose, quadrivalent, PF 06/13/2022 completed JACKELYN MACHNACZ null, PA - [facility] 07/02/2022 14:24:48 Past Encounters Encounter ID Performer Location Encounter Start Date Encounter Closed Date Diagnosis/Indication Diagnosis SNOMED-CT Code Diagnosis ICD10 Code [id number] [address] [facility] [place] [address] 07/16/2019 10:19:21 07/16/2019 12:01:17 [id number] [address] [facility] [place] [address] 01/10/2021 16:37:47 01/10/2021 17:35:59 [id number] [facility] [address] [address] [facility] [address] [facility] [place] [address] 07/02/2022 13:20:27 07/02/2022 15:14:04 Acute exacerbation of chronic obstructive pulmonary disease 387897730 J44.1 Health Concerns Section Related Observation LastModified by Organization Detai ls LastModified Time None Recorded Concern Status LastModified by Organization Details LastModified Time None Recorded Advance Directives Directive None Recorded Payers Encounter Date Sequence Insurance Name Policy Number Policy Urena Covered Member ID Urena Member ID Guarantor Name 07/16/2019 1 [facility] [id number] Tanya Joya [id number] Tanya Joya 01/10/2021 1 [facility] [id number] Tanya Joya [id number] Tanya Joya 07/02/2022 1 [facility] [id number] Tanya Joya [id number] Tanya Joya Notes Date Note Type Note Provider Name and Address Organization Details Recorded Time 2 text/html CoughReported bypatient.source of patient informationInformation obtained from patient; Patient arrived at Urgent Care ambulatory Quality:productive cough; symptoms worse with lying down Severity:worsening; severe Duration:6 days Timing:worsening; gradual Context:pt has h/o COPD and uses oxygen therapy intermittent at home as needed. states tanks this morning were empty when she went to use one. she is having productive cough with discolored mucus. denies fevers. Associated Symptoms:no fever;wheezing LINO Simon [address] [place], [address], [place] - [facility] 07/02/2022 15:09:16 OBGyn Episode No OBEpisode recorded.
== END 2024-06-09 14:51 | disposition home or self-care (01) ==
PROVIDERS: PCP Internal Medicine; Visit Provider Hospitalist
DX: J43.2 Centrilobular emphysema (principal); J96.11 Chronic respiratory failure with hypoxia; R05.3 Chronic cough; I27.20 Pulmonary hypertension, unspecified; J90 Pleural effusion, not elsewhere classified; R91.1 Solitary pulmonary nodule
CPT/HCPCS: 99214; G2211

== ENCOUNTER → 2024-06-09 13:55 | Outpatient (BNVA) | payer OTHER, SELFPAY | PROVIDERS: PCP Internal Medicine; Visit Provider Hospitalist | DX: J43.2 Centrilobular emphysema (principal); J96.11 Chronic respiratory failure with hypoxia; J90 Pleural effusion, not elsewhere classified; R05.3 Chronic cough; I27.20 Pulmonary hypertension, unspecified; R91.1 Solitary pulmonary nodule; Z99.81 Dependence on supplemental oxygen | CPT/HCPCS: 99212 ==

== ENCOUNTER → 2024-08-14 14:26 | Outpatient (BNVA) | payer OTHER, SELFPAY | PROVIDERS: PCP Internal Medicine; Visit Provider Hospitalist | DX: J43.2 Centrilobular emphysema (principal); J96.11 Chronic respiratory failure with hypoxia; J90 Pleural effusion, not elsewhere classified; R05.3 Chronic cough; R91.1 Solitary pulmonary nodule; I27.20 Pulmonary hypertension, unspecified | CPT/HCPCS: 99212 ==

== ENCOUNTER 2024-08-25 03:49 | Inpatient (IN) | payer OTHER, SELFPAY ==
[2024-08-25] VITALS (17 sets, daily range): BP systolic 113–141; BP diastolic 33–63; PULSE 69–80; RESP 16–24; TEMP 36.7–37.1; O2SAT 92–100; BMI 26.8
--- NOTE | 2024-08-25 | ECG_ITS ---
Test Reason : DYSPNEA Blood Pressure : */* mmHG Vent. Rate : 71 BPM Atrial Rate : 71 BPM P-R Int : 190 ms QRS Dur : 80 ms QT Int : 398 ms P-R-T Axes : 84 65 97 degrees QTcB Int : 432 ms Normal sinus rhythm Nonspecific T wave abnormality Abnormal ECG When compared with ECG of 15-May-2024 12:24, [place] interval has decreased Referred By: Generic ED Physician Electronically Signed By: OCTAVIANO JOHNSON
--- NOTE | ~2024-08-25 | XR_ITS ---
CLINICAL HISTORY: SOB, cough 1 view chest x-ray Comparison: CR/ID/SR - XR CHEST 2V - 05/15/24 12:50 EST Findings: Mild basilar subsegmental atelectasis or infiltrates. Mild enlargement of the cardiac silhouette. Scoliotic curvature of the thoracolumbar spine. Old rib fractures. IMPRESSION: Mild basilar subsegmental atelectasis or infiltrates. This document has been electronically signed by: Asad Ruvalcaba MD, PHD on 08/25/2024 04:34:16
--- NOTE | ~2024-08-25 | CT_ITS ---
CLINICAL HISTORY: Microcytic anemia, abdominal pain, R O malignancy CT abdomen and pelvis with contrast Comparison: None Findings: Images are somewhat degraded by respiratory motion. No consolidation or effusion. Gallbladder is absent. Liver, spleen, pancreas, adrenal glands and kidneys are unremarkable. No radiopaque stones or hydronephrosis. Prior ventral hernia repair with mesh. Evidence of recurrent hernia along the superior aspect to the left of midline aperture measuring 2.6 cm on image 13 of series 3 as well as a 2nd area of herniation inferior to the mesh at midline on image 52 of series 3 aperture measuring 2 cm. Both of these contain only fat. No adenopathy or fluid collections. Nonaneurysmal aorta with calcified atheromatous plaquing. No bowel obstruction, pneumoperitoneum, or pneumatosis. Pelvic contents unremarkable. Appendix not seen. No acute fracture. IMPRESSION: No acute findings to explain the patient's anemia. Exam is limited by respiratory motion. Prior ventral hernia repair with mesh with 2 areas of recurrent herniation containing fat as described. No findings of occult malignancy. This document has been electronically signed by: Natalya Cabezas MD on 08/25/2024 05:32:39
--- NOTE | ~2024-08-25 | XR_ITS ---
EXAMINATION: XR CHEST CLINICAL INFORMATION: hypoxia COMPARISON: August 25, 2024. TECHNIQUE: Frontal view of the chest was obtained. FINDINGS: Blunting of the costophrenic angles bilaterally. Prominence of the interstitial lung markings. Pulmonary reticular pattern. Cardiomediastinal silhouette appears prominent, unchanged. Calcified plaque thoracic aorta. S-shaped curvature of the thoracolumbar spine. Multilevel spondylosis. Degenerative changes in the shoulders. XR/XR chest 1V IMPRESSION: Bilateral pleural effusions, small to moderate volume with likely mild interstitial lung edema. Electronically signed by: Dominic Chisholm MD 08/29/2024 10:29 AM GEO
--- NOTE | ~2024-08-25 | XR_ITS ---
CLINICAL HISTORY: cough Single view of the chest. COMPARISON: XR chest dated 08/29/24 at 09:57 EST FINDINGS: Cardiomegaly, stable. Tortuous atherosclerotic thoracic aorta. Prominence of the central pulmonary vasculature. Bronchial wall thickening. Consolidation along the medial left lung base. Blunting of the bilateral costophrenic angles. No pneumothorax. Scoliosis. Moderate spondylosis. No acute fracture identified. IMPRESSION: 1. Interval development of consolidation along the medial left lung base. This could represent atelectasis, aspiration pneumonitis or developing pneumonia. 2. Cardiomegaly with pulmonary edema and small bilateral pleural effusions. This appears similar to prior imaging. This document has been electronically signed by: Fareed Menendez MD on 09/02/2024 13:50:06
--- NOTE | ~2024-08-25 | CT_ITS ---
CLINICAL HISTORY: persistent anemia CT abdomen and pelvis with contrast Comparison: 08/25/2024 Findings: There are bilateral pleural effusions with underlying consolidation, possible pneumonia subsegmental atelectasis.. Unremarkable solid organs. There are no abnormal findings in the gallbladder fossa. No urolithiasis. No bowel obstruction, pneumoperitoneum, or pneumatosis. Pelvic contents unremarkable. Appendix is not visualized with no imaging evidence of appendicitis There are 3 separate ventral abdominal hernias. The bones are intact. IMPRESSION: 1. Bilateral pleural effusions with underlying consolidation, differential considerations noted. 2. Three separate ventral abdominal hernias. This document has been electronically signed by: Eusebio Muñiz MD on 09/01/2024 17:48:56
[2024-08-25 04:21] LABS: Basophils Absolute Auto 0.1 X10*3/uL (0.0-0.2); Basophils Percent Auto 0.8 % (0-2); Eosinophils Percent Auto 0.3 % (0-4); Imm Gran Abs Auto 0.04 X10*3/uL (0.00-0.03); Imm Gran Pct Auto 0.4 % (0.0-0.4); Lymphocytes Absolute Auto 1.3 X10*3/uL (1.2-4.9); Lymphocytes Percent Auto 14.3 % (20-40); MANUAL DIFF FLAG NO; Mean Corpuscular HGB Conc 26.9 g/dl (31.0-35.0); Mean Corpuscular Hemoglobin 18.6 pg (27.0-33.0); Mean Corpuscular Volume 69.2 fL (80.0-98.0); Mean Platelet Volume 8.6 fL (9.4-12.3); Monocytes Percent Auto 11.1 % (2-11); NRBC Pct Auto 0.3 /100WBC (0.0-0.2); Neutrophils Absolute Auto 6.5 x10*3/uL (2.0-8.3); Neutrophils Percent Auto 73.1 % (45-73); Platelet Count 647 X10*3/uL (160-400); Red Blood Count 2.63 X10*6/uL (4.20-5.50); Red Cell Distribution Width 20.5 % (11.0-16.0); White Blood Count 8.9 X10*3/uL (4.8-10.8)
[2024-08-25 04:28] LABS: Hematocrit 18.2 % (37.0-47.0); Hemoglobin 4.9 g/dl (12.0-16.0)
--- NOTE | 2024-08-25 04:30 | ED_ITS ---
HPI - SOB/Dyspnea General Chief Complaint: Dyspnea Stated Complaint: SOB Time Seen by Provider: 08/25/24 04:29 Source: patient Mode of arrival: ambulatory Limitations: no limitations History of Present Illness ED Provider: Dr. Devan Siddiqui HPI Narrative: 83-year-old female with a history of COPD, paroxysmal atrial fibrillation, pulmonary hypertension, aortic valve calcification, mitral valve calcification, who presents emergency department for evaluation of cough, shortness of breath, dyspnea on exertion, chest tightness x1 week. Patient states she was had a cough productive of thick, clear, sputum times 1-2 weeks. Patient has been seen by her unit operator, Dr. Brito and was started on Levaquin 500 mg once a day for 8 days. The patient states she has a couple of pills that then she was not feeling any better. Patient states she was had significant dyspnea on exertion and colleague walk 10 ft before she gets winded. She also states that whenever she exerts herself she gets a heaviness in her chest that then resolves with rest. She states she has been feeling weak and fatigued. She denied fever, chills, frequency, urgency or dysuria. Patient states that she was had constipation but she was also noted black stools for the last week. The daughter states that the patient was getting very winded in a needed to put a commode in her rooms and she could not walk 10 ft to her bathroom. Symptoms got worse this morning therefore the daughter brought her to the emergency department for evaluation. Related Data Home Medications ?Medication ?Instructions ?Recorded ?Confirmed albuterol sulfate 2.5 mg/3 mL 2.5 mg inhalation Q4-6H PRN 03/07/21 04/03/24 (0.083 %) solution for nebulization Wheezing famotidine 20 mg tablet 20 mg PO DAILY@0803/07/21 04/03/24 pravastatin 40 mg tablet 40 mg PO DAILY@79903/07/21 04/03/24 turmeric root extract 500 mg 500 mg PO DAILY@79909/19/21 04/03/24 capsule Oxygen Home Use 09/22/22 04/03/24 nebulizers 09/22/22 04/03/24 alprazolam 0.25 mg tablet 0.25 mg PO DAILY PRN Anxiety 08/26/23 04/03/24 apixaban 5 mg tablet (Eliquis) 5 mg PO BID 08/26/23 04/03/24 citalopram 20 mg tablet 40 mg PO DAILY 08/26/23 04/03/24 fluticasone propionate 50 50 mcg intranasal DAILY PRN 08/26/23 04/03/24 mcg/actuation nasal allergies spray,suspension (Flonase Allergy Relief) furosemide 40 mg tablet 40 mg PO BID 08/26/23 04/03/24 ibuprofen 800 mg tablet 800 mg PO TID PRN Pain 08/26/23 04/03/24 ropinirole 0.25 mg tablet 0.25 mg PO BID 08/26/23 04/03/24 trazodone 50 mg tablet 50 mg PO BEDTIME PRN sleep 08/14/24 Previous Rx's ?Medication ?Instructions ?Recorded albuterol sulfate 90 mcg/actuation 2 puff inhalation Q4-6H PRN 02/17/21 aerosol inhaler (ProAir HFA) shortness of breath or wheezing #8.5 grams fluticasone fur. 100 mcg-umeclid 1 ea PO DAILY #60 ea 09/20/23 62.5 mcg-vilant 25 mcg inhalat.powder (Trelegy Ellipta) ascorbic acid (vitamin C) 500 mg 500 mg PO DAILY #90 tabs 04/03/24 chewable tablet (Vitamin C) diltiazem HCl 240 mg 240 mg PO DAILY #90 caps 05/08/24 capsule,extended release 24 hr acetaminophen 500 mg tablet 1,000 mg (2 x 500 mg) PO TID PRN 05/15/24 pain #20 tabs montelukast 10 mg tablet 10 mg PO DAILY #30 tabs 06/13/24 azithromycin 500 mg tablet 500 mg PO DAILY 5 days #5 tabs 08/11/24 prednisone 20 mg tablet 20 mg PO DAILY 5 days #5 tabs 08/11/24 amoxicillin 875 mg-potassium 1 tab PO BID 10 days #20 tabs 08/14/24 clavulanate 125 mg tablet codeine 10 mg-guaifenesin 100 mg/5 10 ml PO Q6H PRN cough 10 days 08/14/24 mL oral liquid #300 mL ipratropium bromide 42 mcg (0.06 2 spray intranasal TID 30 days #15 08/14/24 %) nasal spray mL mupirocin 2 % topical ointment 1 appl topical TID 10 days #22 08/14/24 grams levofloxacin 500 mg tablet 500 mg PO DAILY 8 days #8 tabs 08/18/24 gabapentin 300 mg capsule 300 mg PO BEDTIME #30 caps 08/22/24 Allergies Allergy/AdvReac Type Severity Reaction Status Date / Time No Known Allergies Allergy Verified 08/25/24 03:57 Review of Systems 2 Review of Systems: Yes all other systems are reviewed and are negative [facility] Past Medical History [facility] Narrative: Social history: The patient was a former smoker but quit smoking 20 years ago, she has more than 30 pack-year history of smoking. She denies alcohol and drug use. Medical History COPD (chronic obstructive pulmonary disease) PAF (paroxysmal atrial fibrillation) Atrial fibrillation with rapid ventricular response Lung nodule Pleural effusion Pulmonary hypertension Mitral annular calcification Aortic valve calcification Cough Sinusitis Chronic respiratory failure Pneumonia Surgical History (Reviewed 03/14/24 @ 10:26 by Chandrika Belcher [facility]) No pertinent past surgical history Family History Family History (Updated 04/03/24 @ 14:50 by Jenna Gr) Brother Myocardial infarction Father Stroke Maternal Grandmother Bone cancer Social History Social History (Updated 08/14/24 @ 14:36 by Vanesa Mishra [facility]) Household Members: Children Household Members Other:: Daughter and family Housing: House Do you presently have visiting nurse or other home services: Yes (meals on wheels) Alcohol intake: never Patient Tobacco Use Status: Former Tobacco user Tobacco use type: Cigarette Smoked in Last 30 Days: No e-Cigarette/Vaping Use: Never Used Second Hand Smoke Exposure: No Use of substances other than those prescribed or required for medical reasons: No Advance Directives: Yes Advance Directives on File: Yes Advance Directives Date on File: 06/21/23 service: No Current occupational status: retired Physical Exam 2 Vital Signs: Vital Signs: Last Vital Signs Temp 98.3 F 08/25/24 06:15 Pulse 78 08/25/24 06:15 Resp 24 H 08/25/24 06:15 BP 130/43 L 08/25/24 06:15 Pulse Ox 100 08/25/24 05:54 O2 Del Method Nasal Cannula 08/25/24 05:54 O2 Flow Rate 2 08/25/24 05:54 Oxygen Flow Rate 2 08/25/24 03:53 BMI result Body Mass Index 26.8 Vital signs were unremarkable. O2 saturation was 98% on 2 L of oxygen via nasal cannula Exam: General: Awake, alert in no distress, patient was very pale Head: Normocephalic, atraumatic EENT: PERRL, Lids normal, sclera normal, conjunctiva normal, nose normal , ears normal, throat without erythema or exudates Neck: Supple, no adenopathy Lung: breath sounds symmetric, no wheezing, rales or rhonchi Chest: symmetric movement, nontender Heart: regular rate and rhythm, normal S1, S2 no murmurs or rubs Abdomen: soft, moderate left lower and suprapubic tenderness, mild right lower quadrant tenderness, nondistended, normal bowel sounds Rectal exam: Nail external lesions or hemorrhoids, sphincter tone is normal, no mass on digital exam, Brown stool Back: no vertebral tenderness, no CVAT Extremities: no deformities, moves all extremities symmetrically, trace pitting edema bilaterally symmetric Neuro: Awake, alert, oriented, normal speech, cranial nerves intact, moves all extremities symmetrically Psych: Pleasant, cooperative Medications Administered Discontinued Medications Generic Name Dose Route Start Last Admin Trade Name Freq PRN Reason Stop Dose Admin Iohexol 85 ml 08/25/24 05:11 08/25/24 05:12 Iohexol 350 Mg/Ml 100 Ml Infus..Btl IV 08/25/24 05:12 85 ml ONCE ONE Administration Pantoprazole Sodium 40 mg 08/25/24 05:10 08/25/24 06:08 Pantoprazole Sodium 40 Mg/10 Ml Vial IVPUSH 08/25/24 05:11 40 mg ONCE ONE Administration Medical Decision Making Medical Decision Making [facility] Narrative: 83-year-old female with a history of COPD 2 L oxygen nasal cannula, paroxysmal atrial fibrillation on Eliquis, pulmonary hypertension, aortic valve calcification, mitral valve calcification, who presents emergency department for evaluation of productive cough cough, shortness of breath, dyspnea on exertion getting worse, exertional chest tightness x1 week, no improvement despite being on Levaquin 500 mg daily for 7 days. Patient was been complaining of constipation but did notice dark stools x1 week. Patient's shortness of breath and dyspnea on exertion he was getting worse therefore the daughter brought her to the emergency department for evaluation. Examination revealed that she was very pale, patient did have lower abdominal tenderness, rectal exam revealed brown stool. Differential diagnosis: ?Includes but is not limited to pneumonia, bronchitis, congestive heart failure, myocardial infarction, myocardial ischemia, anemia, electrolyte abnormalities Course: 05:06 My interpretation patient's laboratory evaluation is as follows: WBC was normal 8900. Severe, microcytic anemia anemia with an H&H of 4.9 and 18.2 MCV was 69.2. This is compared to a microcytic anemia of 9.9 and 32.7 on 05/15/2024. Platelet count elevated 647,000. Bicarb elevated 34. Glucose elevated 135. Troponin elevated at 18.9. BNP elevated 321. Given the patient's abdominal tenderness I am concerned that she may have a GI malignancy as the cause of her anemia. She was on Eliquis and this may also be contributing to her anemia. I did order a CT scan of the abdomen pelvis with IV contrast. I also ordered Protonix 40 mg IV and transfusion of 2 units of PRBCs. The patient did have an elevated troponin 18.9 in his had any exertional chest pain therefore I ordered a repeat 3 hour troponin at 07:15 hours. 06:16 CT scan of the abdomen pelvis with IV contrast did not reveal any acute malignancy/abnormality to explain the patient's anemia. I did discuss the patient's presentation over tiger text with the covering hospitalist, Dr. Avalos and the patient will be admitted for further evaluation and treatment. Admission/Observation Consideration of admission/observation: Escalation of care including admission/observation considered (Yes) Consult Healthcare Provider Management of the patient was discussed with: Hospitalist Lab Data MDM Lab Attestation statement: I reviewed the patient's lab results. 08/25/24 04:14 08/25/24 04:14 Labs: Lab Results 08/25/24 08/25/24 08/25/24 Range/Units 04:10 04:14 04:34 WBC 8.9 (4.8-10.8) X10*3/uL RBC 2.63 L D (4.20-5.50) X10*6/uL Hgb 4.9 L* D (12.0-16.0) g/dl Hct 18.2 L* D (37.0-47.0) % MCV 69.2 L (80.0-98.0) fL MCH 18.6 L (27.0-33.0) pg MCHC 26.9 L (31.0-35.0) g/dl RDW 20.5 H (11.0-16.0) % Plt Count 647 H D (160-400) X10*3/uL MPV 8.6 L (9.4-12.3) fL Immature Gran % (Auto) 0.4 (0.0-0.4) % Neut % (Auto) 73.1 H (45-73) % Lymph % (Auto) 14.3 L (20-40) % [place] % (Auto) 11.1 H (2-11) % Eos % (Auto) 0.3 (0-4) % Baso % (Auto) 0.8 (0-2) % Lymph # (Auto) 1.3 (1.2-4.9) X10*3/uL [place] # (Auto) 1.0 (0.1-1.2) X10*3/uL Eos # (Auto) 0.0 (0.0-0.4) X10*3/uL Baso # (Auto) 0.1 (0.0-0.2) X10*3/uL Abs Immat Gran (auto) 0.04 H (0.00-0.03) X10*3/uL Absolute Neuts (auto) 6.5 (2.0-8.3) x10*3/uL Absolute Nucleated RBC 0.030 H (0.0-0.012) X10*3/uL Nucleated RBC % (auto) 0.3 H (0.0-0.2) /100WBC Sodium 138 (135-145) mmol/L Potassium 3.5 (3.3-5.1) mmol/L Chloride 96 (96-108) mmol/L Carbon Dioxide 34 H (22-29) mmol/L Anion Gap 12 (12-20) BUN 10 (9-16) mg/dL Creatinine 0.63 (0.5-1.4) mg/dL Estim Creat Clear Calc 70.0 Estimated GFR > 60 Random Glucose 135 H (60-115) mg/dL Calcium 8.9 (8.4-10.2) mg/dL Total Bilirubin 0.3 (0.0-1.0) mg/dL AST 26 (5-31) U/L ALT 10 (0-31) U/L Alkaline Phosphatase 81 (39-117) U/L Troponin I High Sens 18.9 H (<3.5-17.0) ng/L B-Natriuretic Peptide 321 H (<100) pg/mL Total Protein 7.2 (6.5-8.0) g/dL Albumin 3.4 L (3.5-5.0) g/dL Stool Occult Blood (NEGATIVE) Influenza Type A (PCR) NEGATIVE (Negative) Influenza Type B (PCR) NEGATIVE (Negative) RSV RNA Qual (PCR) NEGATIVE (Negative) SARS-CoV-2 RNA (RT-PCR) NEGATIVE (Negative) Blood Type O Positive Antibody Screen NEGATIVE Crossmatch See Detail 08/25/24 Range/Units 05:11 WBC (4.8-10.8) X10*3/uL RBC (4.20-5.50) X10*6/uL Hgb (12.0-16.0) g/dl Hct (37.0-47.0) % MCV (80.0-98.0) fL MCH (27.0-33.0) pg MCHC (31.0-35.0) g/dl RDW (11.0-16.0) % Plt Count (160-400) X10*3/uL MPV (9.4-12.3) fL Immature Gran % (Auto) (0.0-0.4) % Neut % (Auto) (45-73) % Lymph % (Auto) (20-40) % [place] % (Auto) (2-11) % Eos % (Auto) (0-4) % Baso % (Auto) (0-2) % Lymph # (Auto) (1.2-4.9) X10*3/uL [place] # (Auto) (0.1-1.2) X10*3/uL Eos # (Auto) (0.0-0.4) X10*3/uL Baso # (Auto) (0.0-0.2) X10*3/uL Abs Immat Gran (auto) (0.00-0.03) X10*3/uL Absolute Neuts (auto) (2.0-8.3) x10*3/uL Absolute Nucleated RBC (0.0-0.012) X10*3/uL Nucleated RBC % (auto) (0.0-0.2) /100WBC Sodium (135-145) mmol/L Potassium (3.3-5.1) mmol/L Chloride (96-108) mmol/L Carbon Dioxide (22-29) mmol/L Anion Gap (12-20) BUN (9-16) mg/dL Creatinine (0.5-1.4) mg/dL Estim Creat Clear Calc Estimated GFR Random Glucose (60-115) mg/dL Calcium (8.4-10.2) mg/dL Total Bilirubin (0.0-1.0) mg/dL AST (5-31) U/L ALT (0-31) U/L Alkaline Phosphatase (39-117) U/L Troponin I High Sens (<3.5-17.0) ng/L B-Natriuretic Peptide (<100) pg/mL Total Protein (6.5-8.0) g/dL Albumin (3.5-5.0) g/dL Stool Occult Blood POSITIVE (NEGATIVE) Influenza Type A (PCR) (Negative) Influenza Type B (PCR) (Negative) RSV RNA Qual (PCR) (Negative) SARS-CoV-2 RNA (RT-PCR) (Negative) Blood Type Antibody Screen Crossmatch Independent Interpretation I performed an independent interpretation of an: EKG and Plain X-Ray Interpretation: My independent interpretation patient's 12 EKG done at 04:06 hours is as follows: Normal sinus rhythm with a rate of 71, normal GA interval, normal QRS duration, normal QTC interval, no ST segment elevation, no ST segment depression, no PACs, no PVCs My interpretation patient's one-view chest x-ray is as follows: No acute disease Radiology Impression Discussion of test interpretation with radiology: I have reviewed the radiologist's reading. Radiologist Impression: 1 view chest x-ray Comparison: CR/GA/SR - XR CHEST 2V - 05/15/24 12:50 EST Findings: Mild basilar subsegmental atelectasis or infiltrates. Mild enlargement of the cardiac silhouette. Scoliotic curvature of the thoracolumbar spine. Old rib fractures. IMPRESSION: Mild basilar subsegmental atelectasis or infiltrates. This document has been electronically signed by: Asad Ruvalcaba MD, PHD on 08/25/2024 04:34:16 Dictated By: Asad Ruvalcaba MD CT abdomen and pelvis with contrast Comparison: None Findings: Images are somewhat degraded by respiratory motion. No consolidation or effusion. Gallbladder is absent. Liver, spleen, pancreas, adrenal glands and kidneys are unremarkable. No radiopaque stones or hydronephrosis. Prior ventral hernia repair with mesh. Evidence of recurrent hernia along the superior aspect to the left of midline aperture measuring 2.6 cm on image 13 of series 3 as well as a 2nd area of herniation inferior to the mesh at midline on image 52 of series 3 aperture measuring 2 cm. Both of these contain only fat. No adenopathy or fluid collections. Nonaneurysmal aorta with calcified atheromatous plaquing. No bowel obstruction, pneumoperitoneum, or pneumatosis. Pelvic contents unremarkable. Appendix not seen. No acute fracture. IMPRESSION: No acute findings to explain the patient's anemia. Exam is limited by respiratory motion. Prior ventral hernia repair with mesh with 2 areas of recurrent herniation containing fat as described. No findings of occult malignancy. This document has been electronically signed by: Natalya Cabezas MD on 08/25/2024 05:32:39 Independent Historian Clinical information obtained from an independent historian. History obtained from or confirmed by: Other (Daughter) Chronic Conditions Patient?s care impacted by: Other (COPD, atrial fibrillation) Discharge Plan Discharge Clinical Impression: Microcytic anemia, Chest pain, exertional, Abdominal pain Prescriptions: No Action Trelegy Ellipta 100-62.5-25 mcg blister with device 1 ea PO DAILY Qty: 60 11RF diltiazem HCl 240 mg capsule,extended release 24hr 240 mg PO DAILY Qty: 90 3RF montelukast 10 mg tablet 10 mg PO DAILY Qty: 30 0RF azithromycin 500 mg tablet 500 mg PO DAILY 5 Days Qty: 5 0RF prednisone 20 mg tablet 20 mg PO DAILY 5 Days Qty: 5 0RF levofloxacin 500 mg tablet 500 mg PO DAILY 8 Days Qty: 8 0RF gabapentin 300 mg capsule 300 mg PO BEDTIME Qty: 30 6RF albuterol sulfate [ProAir HFA] 90 mcg/actuation HFA aerosol inhaler 2 puff inhalation Q4-6H PRN (Reason: shortness of breath or wheezing) Qty: 8.5 0RF furosemide 40 mg tablet 40 mg PO BID Eliquis 5 mg tablet 5 mg PO BID alprazolam 0.25 mg tablet 0.25 mg PO DAILY PRN (Reason: Anxiety) citalopram 20 mg tablet 40 mg PO DAILY ropinirole 0.25 mg tablet 0.25 mg PO BID ibuprofen 800 mg tablet 800 mg PO TID PRN (Reason: Pain) fluticasone propionate [Flonase Allergy Relief] 50 mcg/actuation [place],Suspension 50 mcg INTRANASAL DAILY PRN (Reason: allergies) ascorbic acid (vitamin C) [Vitamin C] 500 mg Tablet,Chewable 500 mg PO DAILY Qty: 90 3RF acetaminophen 500 mg tablet 1,000 mg PO TID PRN (Reason: pain) Qty: 20 0RF albuterol sulfate 2.5 mg /3 mL (0.083 %) solution for nebulization 2.5 mg inhalation Q4-6H PRN (Reason: Wheezing) famotidine 20 mg tablet 20 mg PO DAILY@0800 pravastatin 40 mg tablet 40 mg PO DAILY@0800 (DME) nebulizers Misc See Rx Instructions .Route Rx Instructions: As directed (DME) Oxygen Home Use Kit See Rx Instructions .Route Rx Instructions: As directed turmeric root extract 500 mg capsule 500 mg PO DAILY@0800 trazodone 50 mg tablet 50 mg PO BEDTIME PRN (Reason: sleep) amoxicillin-pot clavulanate 875-125 mg tablet 1 tab PO BID 10 Days Qty: 20 0RF codeine-guaifenesin 10-100 mg/5 mL liquid 10 ml PO Q6H PRN (Reason: cough) 10 Days Qty: 300 0RF ipratropium bromide 42 mcg (0.06 %) spray,non-aerosol 2 spray intranasal TID 30 Days Qty: 15 6RF Rx Instructions: administer into each nostril mupirocin 2 % ointment 1 appl topical TID 10 Days Qty: 22 0RF Print Language: Georgian
--- NOTE | 2024-08-25 04:37 | MHC.EDTECH ---
Patient brought in from triage,patient was changed into hospital attire,placed on the media monitor,vitals taken,Type N Screen drawn and sent to lab, applied band to left wrist, daughter at bedside,call chilel in reach
[2024-08-25 04:42] LABS: B Type Natriuretic Peptide 321 pg/mL (<100)
[2024-08-25 04:43] LABS: Alanine Aminotransferase 10 U/L (0-31); Albumin Level 3.4 g/dL (3.5-5.0); Anion Gap 12 (12-20); Aspartate Amino Transferase 26 U/L (5-31); Bilirubin Total 0.3 mg/dL (0.0-1.0); Blood Urea Nitrogen 10 mg/dL (9-16); Calcium 8.9 mg/dL (8.4-10.2); Carbon Dioxide 34 mmol/L (22-29); Chloride 96 mmol/L (96-108); Estimated Glomerular Filt Rate > 60; Glucose Random 135 mg/dL (60-115); Potassium 3.5 mmol/L (3.3-5.1); Sodium 138 mmol/L (135-145); Total Protein 7.2 g/dL (6.5-8.0); Troponin-I High Sensitivity 18.9 ng/L (<3.5-17.0)
[2024-08-25 04:45] LABS: Alkaline Phosphatase 81 U/L (39-117)
[2024-08-25 05:08] LABS: Influenza A PCR NEGATIVE (Negative); Influenza B PCR NEGATIVE (Negative); Resp Syncy Virus RNA Qual PCR NEGATIVE (Negative); SARS COV2 PCR INHOUSE NEGATIVE (Negative)
[2024-08-25] MEDS: iohexoL 350 MG/ML 100 ML INFUS..BTL 85 ML IV (05:12)
[2024-08-25 05:14] LABS: OBS Int Ctl Valid YES; OBS1 POSITIVE (NEGATIVE)
[2024-08-25] MEDS: Pantoprazole Sodium 40 MG/10 ML VIAL IVPUSH ×2 (06:08→16:53)
--- NOTE | 2024-08-25 06:31 | PM.IMHP ---
History of Present Illness Date of Service: 08/25/24 Attending physician on admission: [facility] Chief Complaint: SOB, cough Pt is an 83-year-old female with a PMH significant for?chronic hypoxemic respiratory failure, COPD on chronic 2 L home O2, paroxysmal AFib on Eliquis, HLD, HTN, venous insufficiency with chronic lower leg edema, pulmonary hypertension, and anxiety who presents to the ED with?SOB, PRADO, and cough x2 weeks, worse the past few days. Pt reports cough has been occasionally productive of whitish sputum. Pt initially presented to Dr. Brito in pulmonology who started her on Levaquin and steroids. Symptoms did not resolve however pt has continued to feel fatigued, weak, and unable to walk. Reports has had dark-colored stools for the past 1-2 weeks. Pt reports colorless similar to what she used to experience on iron supplementation which she stopped in April of last year. Has also noted increasing lower leg edema for the past few days. Some nausea but no vomiting. No fever or chills. Denies chest pain/pressure, palpitations. In the ED pt was tachypneic up to 24, and with soft BP as low as 113/33. Labs were significant for microcytic anemia of H&H 4.9/18.2, troponin 18.9, BNP 321, and stool positive for occult blood. Tested negative for flu, COVID, and RSV. CXR showed mild basilar subsegmental atelectasis or infiltrates. CT of abdomen and pelvis found no acute finding to explain anemia and no findings of occult malignancy. EKG demonstrated normal sinus rhythm without evidence of significant ST elevations or depressions. Pt was treated with Protonix and transfused 2 units PRBCs. Pt will be admitted to the hospital for treatment and further evaluation of acute blood loss anemia likely secondary to UGIB in a pt on anticoagulation Review of Systems Review of Systems: Negative except for that which is stated in the [facility] Medical History COPD (chronic obstructive pulmonary disease) PAF (paroxysmal atrial fibrillation) Atrial fibrillation with rapid ventricular response Lung nodule Pleural effusion Pulmonary hypertension Mitral annular calcification Aortic valve calcification Cough Sinusitis Chronic respiratory failure Pneumonia Family History Brother Myocardial infarction Father Stroke Maternal Grandmother Bone cancer Surgical History No pertinent past surgical history Social History Household Members: Children Household Members Other:: Daughter and family Housing: House Do you presently have visiting nurse or other home services: Yes (meals on wheels) Alcohol intake: never Patient Tobacco Use Status: Former Tobacco user Tobacco use type: Cigarette Smoked in Last 30 Days: No e-Cigarette/Vaping Use: Never Used Second Hand Smoke Exposure: No Use of substances other than those prescribed or required for medical reasons: No Advance Directives: Yes Advance Directives on File: Yes Advance Directives Date on File: 06/21/23 service: No Current occupational status: retired [employer] Allergies Allergy/AdvReac Type Severity Reaction Status Date / Time No Known Allergies Allergy Verified 08/25/24 03:57 Home Medications ?Medication ?Instructions ?Recorded ?Confirmed ?Last Taken ?Type albuterol sulfate 2.5 mg/3 mL 2.5 mg inhalation Q4-6H PRN 03/07/21 04/03/24 08/26/23 History (0.083 %) solution for nebulization Wheezing famotidine 20 mg tablet 20 mg PO DAILY@0800 03/07/21 04/03/24 08/26/23 History pravastatin 40 mg tablet 40 mg PO DAILY@0800 03/07/21 04/03/24 08/26/23 History turmeric root extract 500 mg 500 mg PO DAILY@0800 09/19/21 04/03/24 08/26/23 History capsule Oxygen Home Use 09/22/22 04/03/24 Unknown History nebulizers 09/22/22 04/03/24 Unknown History alprazolam 0.25 mg tablet 0.25 mg PO DAILY PRN Anxiety 08/26/23 04/03/24 08/26/23 History apixaban 5 mg tablet (Eliquis) 5 mg PO BID 08/26/23 04/03/24 08/26/23 History citalopram 20 mg tablet 40 mg PO DAILY 08/26/23 04/03/24 08/26/23 History fluticasone propionate 50 50 mcg intranasal DAILY PRN 08/26/23 04/03/24 08/26/23 History mcg/actuation nasal allergies spray,suspension (Flonase Allergy Relief) furosemide 40 mg tablet 40 mg PO BID 08/26/23 04/03/24 08/26/23 History ibuprofen 800 mg tablet 800 mg PO TID PRN Pain 08/26/23 04/03/24 08/26/23 History ropinirole 0.25 mg tablet 0.25 mg PO BID 08/26/23 04/03/24 08/26/23 History trazodone 50 mg tablet 50 mg PO BEDTIME PRN sleep 08/14/24 Unknown History Physical Exam Vital Signs and Narrative: Vital Signs: Last Vital Signs Temp 98.3 F 08/25/24 06:15 Pulse 78 08/25/24 06:15 Resp 24 H 08/25/24 06:15 BP 130/43 L 08/25/24 06:15 Pulse Ox 100 08/25/24 05:54 O2 Del Method Nasal Cannula 08/25/24 05:54 O2 Flow Rate 2 08/25/24 05:54 Oxygen Flow Rate 2 08/25/24 03:53 BMI result Body Mass Index 26.8 General: AOx3, no acute distress Resp: CTA bilaterally though diminished CVS: S1, S2, RRR GI: +BS, NT, no distention Skin: Warm, dry Neuro: Cranial nerves II-XII grossly intact bilaterally. Motor grossly intact bilaterally Extremities: 1+ bilateral pitting edema of lower extremities Psych: Appropriate affect Results Labs 08/25/24 04:14 08/25/24 04:14 Labs: Laboratory Results - last 24 hr 08/25/24 08/25/24 08/25/24 04:10 04:14 04:34 MCV 69.2 L MCH 18.6 L MCHC 26.9 L RDW 20.5 H Plt Count 647 H D MPV 8.6 L Immature Gran % (Auto) 0.4 Neut % (Auto) 73.1 H Lymph % (Auto) 14.3 L [place] % (Auto) 11.1 H Eos % (Auto) 0.3 Baso % (Auto) 0.8 Lymph # (Auto) 1.3 [place] # (Auto) 1.0 Eos # (Auto) 0.0 Baso # (Auto) 0.1 Abs Immat Gran (auto) 0.04 H Absolute Neuts (auto) 6.5 Absolute Nucleated RBC 0.030 H Nucleated RBC % (auto) 0.3 H Anion Gap 12 Estim Creat Clear Calc 70.0 Estimated GFR > 60 Random Glucose 135 H Calcium 8.9 Total Bilirubin 0.3 AST 26 ALT 10 Alkaline Phosphatase 81 B-Natriuretic Peptide 321 H Total Protein 7.2 Albumin 3.4 L Stool Occult Blood Influenza Type A (PCR) NEGATIVE Influenza Type B (PCR) NEGATIVE RSV RNA Qual (PCR) NEGATIVE SARS-CoV-2 RNA (RT-PCR) NEGATIVE Blood Type O Positive Antibody Screen NEGATIVE Crossmatch See Detail 08/25/24 05:11 MCV MCH MCHC RDW Plt Count MPV Immature Gran % (Auto) Neut % (Auto) Lymph % (Auto) [place] % (Auto) Eos % (Auto) Baso % (Auto) Lymph # (Auto) [place] # (Auto) Eos # (Auto) Baso # (Auto) Abs Immat Gran (auto) Absolute Neuts (auto) Absolute Nucleated RBC Nucleated RBC % (auto) Anion Gap Estim Creat Clear Calc Estimated GFR Random Glucose Calcium Total Bilirubin AST ALT Alkaline Phosphatase B-Natriuretic Peptide Total Protein Albumin Stool Occult Blood POSITIVE Influenza Type A (PCR) Influenza Type B (PCR) RSV RNA Qual (PCR) SARS-CoV-2 RNA (RT-PCR) Blood Type Antibody Screen Crossmatch Assessment and Plan (1) Acute blood loss anemia: Status: Acute Plan Pt is an 83-year-old female with a PMH significant for?chronic hypoxemic respiratory failure, COPD on chronic 2 L home O2, paroxysmal AFib on Eliquis, HLD, HTN, venous insufficiency with chronic lower leg edema, pulmonary hypertension, and anxiety who presents to the ED with?SOB, PRADO, and cough x2 weeks, worse the past few days. Pt will be admitted to the hospital for treatment and further evaluation of acute blood loss anemia likely secondary to UGIB in a pt on anticoagulation. Acute symptomatic blood loss anemia Pt with SOB, PRADO, weakness, dark-colored stools x2 weeks H&H 4.9/18.2, stool positive for occult blood Concerning for UGIB Pt transfused 2 units PRBCs in the ED Give Lasix 20 mg IV between units of blood Hold Eliquis NPO GI consult for possible EGD Protonix b.i.d. Follow H&H COPD Not in acute exacerbation Continue home inhalers Continue home 2 L O2 Paroxysmal AFib Continue diltiazem Hold Eliquis Chronic lower leg edema Continue furosemide HLD Continue statin Full Code Attending:?Dr. Avalos DVT Prophylaxis: Pneumatic compression due to acute blood loss anemia Pt will require a hospitalization of at least two nights for treatment of?acute symptomatic blood loss anemia likely secondary to UGIB in a pt on anticoagulation. Pt will require hospital level care for close monitoring of H&H and transfusion as necessary, as well as specialist consultation with GI and likely EGD for further evaluation source of bleeding. Quality Stroke Does the patient have a stroke diagnosis?: No VTE Prior VTE?: No VTE Risk Level:: Medical - moderate - high VTE Device Contraindication: N/A - Device Ordered VTE Drug Contraindication: Treatment Not Indicated
--- NOTE | 2024-08-25 08:06 | PHA.MEDREC ---
Pharmacy Consult ? Medication Reconciliation Pharmacy has completed the medication reconciliation. Spoke with patient and daughter at bedside, they had a typed med list and were able to confirm meds. The confirmed the patient stopped their other antibiotics and were on their last dose of levofloxacin before coming in. They also don't take ibuprofen and are done with the prednisone.
--- NOTE | 2024-08-25 08:45 | PM.GICN ---
History of Present Illness Data of Consult Service Date: 08/25/24 Requesting physician: Marizol Brennan Primary Care Provider: Lizandro Gibbs MD HPI Reason for consult: ?UGIB on Eliquis 83 YF with?chronic hypoxemic respiratory failure, COPD on chronic 2 L home O2, paroxysmal AFib on Eliquis, HLD, HTN, venous insufficiency with chronic lower leg edema, pulmonary hypertension, and anxiety seen at [facility] on 08/25/24 with?SOB, PRADO, and cough x2 weeks, worse the past few days. Pt initially presented to Dr. Brito in pulmonology who started her on Levaquin and steroids. Symptoms did not resolve and pt continued to feel fatigued, weak, and unable to walk. Reports has had dark-colored stools for the past 2 weeks and denies passage of BRBPR Pt admits to a hx of chronic constipation, nausea and denies heartburn, dysphagia, abdominal pain, fever or chills, chest pain/pressure, palpitations.. She denies recent change in her appetite or weight (wt has remained stable at 161 to 162 lbs) Pt was on oral iron and discontinued 04/2024. Has also noted increasing lower leg edema for the past few days. Last dose of Eliquis was on the evening of 08/24/24. Pt quitted smoking a long time ago and takes occasional beer. She reports having a colonoscopy at [facility] > 10 yrs ago and polyps were removed She denies having an EGD in the past. 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 Labs showed microcytic anemia of H&H 4.9/18.2, troponin 18.9, BNP 321, and stool positive for occult blood. Pt tested negative for flu, COVID, and RSV. CXR showed mild basilar subsegmental atelectasis or infiltrates. EKG demonstrated normal sinus rhythm without evidence of significant ST elevations or depressions. 08/25/[address] SCAN SHOWED: No acute findings to explain the patient's anemia. Exam is limited by respiratory motion. Prior ventral hernia repair with mesh with 2 areas of recurrent herniation containing fat as described. No findings of occult malignancy. Pt was treated with Protonix and transfused 2 units PRBCs and admitted for evaluation of acute blood loss anemia likely secondary to UGIB in a pt on anticoagulation PAST GI HX BY REVIEW OF MEDICAL RECORDS: PAST [place] FOR ANEMIA: iron studies and a ferritin: 15/381/4/12. transgluteal IgA: <1. B12 and folate levels: 361/13.5. LDH: 222. SIEP: WNL. Review of Systems Review of Systems: Negative except for that which is stated in the [facility] Past Medical History Medical History COPD (chronic obstructive pulmonary disease) PAF (paroxysmal atrial fibrillation) Atrial fibrillation with rapid ventricular response Lung nodule Pleural effusion Pulmonary hypertension Mitral annular calcification Aortic valve calcification Cough Sinusitis Chronic respiratory failure Pneumonia Family History Family History Brother Myocardial infarction Father Stroke Maternal Grandmother Bone cancer Surgical History Surgical History No pertinent past surgical history Social History Social History Household Members: Children Household Members Other:: Daughter and family Housing: House Do you presently have visiting nurse or other home services: Yes (meals on wheels) Alcohol intake: never Patient Tobacco Use Status: Former Tobacco user Tobacco use type: Cigarette e-Cigarette/Vaping Use: Never Used Second Hand Smoke Exposure: No Advance Directives Date on File: 06/21/23 service: No Current occupational status: retired [employer] Allergies Allergy/AdvReac Type Severity Reaction Status Date / Time No Known Allergies Allergy Verified 08/25/24 03:57 Active Medications: Current Medications Acetaminophen (Acetaminophen 325 Mg Tablet) 650 mg PO Q6H PRN PRN Reason: Pain, Mild 1-3,fever,headache Albuterol Sulfate (Albuterol Sulfate 90 Mcg 8 Gm Inhaler) 2 puff INHALE Q4H PRN PRN Reason: shortness of breath or wheezing Alprazolam (Alprazolam 0.25 Mg Tablet) 0.25 mg PO DAILY PRN PRN Reason: Anxiety Fluticasone Propionate (Fluticasone Propionate Nasal 16 Gm [place]) 1 spray NOSTRIL-B DAILY PRN PRN Reason: allergies Fluticasone/Umeclidinium/Vilanterol (Fluticasone/Umeclidinium/Vilanterol 100/62.5/25 Blst.W.Dev) 1 puff INHALE RDAILY [facility] Guaifenesin/Dextromethorphan (Guaifenesin Dm 200/20/10 Ml 10 Ml Syrup) 10 ml PO Q4H PRN PRN Reason: Cough Ipratropium [place] (Ipratropium [place] Chan 0.06 % 15 Ml [place]) 2 spray NOSTRIL-B TID [facility] Melatonin (Melatonin 3 Mg Tablet) 6 mg PO BEDTIME PRN PRN Reason: Insomnia Ondansetron HCl (Ondansetron Hcl 4 Mg/2 Ml Vial) 4 mg IVPUSH Q8H PRN PRN Reason: Nausea and Vomiting Pantoprazole Sodium (Pantoprazole Sodium 40 Mg/10 Ml Vial) 40 mg IVPUSH BID@0630,1630 [facility] Sodium Chloride (0.9 % Sodium Chloride Flush 3 Ml Syringe) 3 ml IVFLUSH QSHIFT [facility] Home Medications ?Medication ?Instructions ?Recorded ?Confirmed ?Last Taken ?Type albuterol sulfate 2.5 mg/3 mL 2.5 mg inhalation Q4H PRN Wheezing 03/07/21 08/25/24 08/24/24 History (0.083 %) solution for nebulization famotidine 20 mg tablet 20 mg PO DAILY@0800 03/07/21 08/25/24 08/24/24 History pravastatin 40 mg tablet 40 mg PO DAILY@0800 03/07/21 08/25/24 08/24/24 History turmeric root extract 500 mg 500 mg PO DAILY@0800 09/19/21 08/25/24 08/24/24 History capsule Oxygen Home Use 09/22/22 04/03/24 Unknown History nebulizers 09/22/22 04/03/24 Unknown History alprazolam 0.25 mg tablet 0.25 mg PO DAILY PRN Anxiety 08/26/23 08/25/24 08/24/24 History apixaban 5 mg tablet (Eliquis) 5 mg PO BID 08/26/23 08/25/24 08/24/24 History citalopram 20 mg tablet 40 mg PO DAILY 08/26/23 08/25/24 08/24/24 History fluticasone propionate 50 50 mcg intranasal DAILY PRN 08/26/23 08/25/24 08/24/24 History mcg/actuation nasal allergies spray,suspension (Flonase Allergy Relief) furosemide 40 mg tablet 40 mg PO BID 08/26/23 08/25/24 08/24/24 History ropinirole 0.25 mg tablet 0.25 mg PO BID 08/26/23 08/25/24 08/24/24 History trazodone 50 mg tablet 50 mg PO BEDTIME PRN sleep 08/14/24 08/25/24 08/24/24 History albuterol sulfate 90 mcg/actuation 2 puff inhalation Q4H PRN 08/25/24 08/25/24 08/24/24 History aerosol inhaler shortness of breath or wheezing biotin 10,000 mcg chewable tablet 10,000 mcg PO DAILY 08/25/24 08/25/24 08/24/24 History (Hair, Skin and Nails (biotin)) calcium 600 mg (as 1 tab PO DAILY 08/25/24 08/25/24 08/24/24 History carbonate)-vitamin D3 5 mcg (200 unit) tablet fluticasone fur. 100 mcg-umeclid 1 inh PO DAILY 08/25/24 08/25/24 08/24/24 History 62.5 mcg-vilant 25 mcg inhalat.powder (Trelegy Ellipta) psyllium husk 0.4 gram capsule 0.4 g PO DAILY 08/25/24 08/25/24 08/24/24 History (Metamucil) Physical Exam Vital Signs: Vital Signs: Last Vital Signs Temp 98.1 F 08/25/24 08:16 Pulse 77 08/25/24 08:16 Resp 21 H 08/25/24 08:16 BP 135/44 L 08/25/24 08:16 Pulse Ox 97 08/25/24 08:16 O2 Del Method Nasal Cannula 08/25/24 08:16 O2 Flow Rate 2 08/25/24 08:16 Oxygen Flow Rate 2 08/25/24 03:53 BMI result Body Mass Index 26.8 Const: General: no acute distress Nutritional Appearance: overweight Orientation/consciousness: patient oriented x3 Limitations: physical limitations HEENT: Head: Yes normal to inspection Ears: hearing grossly normal bilaterally Eyes: Sclerae: sclerae normal Pupils: Equal, round and reactive pupils present Neck: Neck: Yes normal visual inspection Chest: Chest palpation & inspection: normal inspection of the chest Resp: Effort & Inspection: normal respiratory effort and other (On oxygen at 2 L/M by NC) Auscultation: clear to auscultation bilaterally Cardio: Palpation: normal PMI Rate: regular rate Rhythm: regular rhythm Heart sounds: S1 normal heart sound present, S2 normal heart sound present and no murmurs GI: Palpation (GI): Soft to palpation, nontender and No hepatosplenomegaly present Auscultation: normal bowel sounds Rectal Exam - Female: deferred Skin: General skin exam: no rashes or lesions noted Neuro: General: patient oriented x3, gait normal and moves all extremities Cranial nerves: Yes Equal, round and reactive pupils present Psych: Appearance: grossly normal Mental Status: mental status grossly normal Results Labs 08/28/24 06:25 08/27/24 07:24 Labs: Short CBC 08/25/24 Range/Units 04:14 WBC 8.9 (4.8-10.8) X10*3/uL Hgb 4.9 L* D (12.0-16.0) g/dl Hct 18.2 L* D (37.0-47.0) % Plt Count 647 H D (160-400) X10*3/uL BMP 08/25/24 04:14 Sodium 138 Potassium 3.5 Chloride 96 Carbon Dioxide 34 H BUN 10 Creatinine 0.63 Calcium 8.9 Liver Function 08/25/24 Range/Units 04:14 Total Bilirubin 0.3 (0.0-1.0) mg/dL AST 26 (5-31) U/L ALT 10 (0-31) U/L Alkaline Phosphatase 81 (39-117) U/L Albumin 3.4 L (3.5-5.0) g/dL Assessment and Plan (1) Acute blood loss anemia: Status: Acute Plan 83 YF with?chronic hypoxemic respiratory failure, COPD on chronic 2 L home O2, paroxysmal AFib on Eliquis, HLD, HTN, venous insufficiency with chronic lower leg edema, pulmonary hypertension, and anxiety seen at [facility] on 08/25/24 with?SOB, PRADO, and cough x2 weeks, worse the past few days. Pt initially presented to Dr. Brito in pulmonology who started her on Levaquin and steroids. Symptoms did not resolve and pt continued to feel fatigued, weak, and unable to walk. Reports has had dark-colored stools for the past 2 weeks and denies passage of BRBPR Last dose of Eliquis was on the evening of 2019. She reports having a colonoscopy at [facility] > 10 yrs ago and polyps were removed She denies having an EGD in the past. Stool Cologuard test was negative per Oncology report Labs showed microcytic anemia of H&H 4.9/18.2, troponin 18.9, BNP 321, and stool positive for occult blood. Pt tested negative for flu, COVID, and RSV. Pt was treated with Protonix and transfused 2 units PRBCs and admitted for evaluation of acute blood loss anemia likely secondary to UGIB in a pt on anticoagulation Pt with acute on chronic KOBY and recent dark colored stools likely due to an UGI source - PUD, erosive esophagitis, gastric AVM or Dieulafoy's. RECOMMENDATIONS: 1. Agree with IV PPI 2. Further evaluation with an upper endoscopy was reviewed with the patient. She needs pulmonary clearance prior to the procedure Procedures Date of Service Date of Service: 08/28/24
[2024-08-25] MEDS: Fluticasone/Umeclidinium/Vilanterol 100/62.5/25 BLST.W.DEV 1 PUFF INHALE (08:55)
[2024-08-25 08:59] LABS: Troponin-I High Sensitivity 17.3 ng/L (<3.5-17.0)
[2024-08-25] MEDS: 0.9 % Sodium Chloride Flush 3 ML SYRINGE IVFLUSH ×2 (09:49→16:53)
[2024-08-25] MEDS: Furosemide 20 MG/2 ML VIAL IVPUSH (09:49)
--- NOTE | 2024-08-25 12:21 | MHC.CM.PN ---
IMM 08/25/24, Pt. lives with her dtr. Ashley. PCP confirmed: Lizandro Gibbs, HCP on file and confirmed: Ashley. Pt does not have home health services, her dtr. helps her. She has had [facility] in the past after a stay at [facility]. cannot recall which agency. For DME, she has home O2 from [employer], lift chair, walker / w/c, shower chair. She has been to [facility] in the past at [place] and it was good. Family to transport home at DC. Cm to follow for DC needs.
--- NOTE | 2024-08-25 13:30 | MHC.EDTECH ---
empty patient pure wick suction canister was gull urine out put was 1000 nurse aware
--- NOTE | 2024-08-25 14:03 | PM.EVENT ---
Event Note Date of Service: 08/25/24 Event Note: seen and examined this morning follow up for symptomatic anemia patient awake, alert; appears pale. breathing easy, no sob pt reporting some nausea This is an 83-year-old female with a PMH significant for?chronic hypoxemic respiratory failure, COPD on chronic 2 L home O2, paroxysmal AFib on Eliquis, HLD, HTN, venous insufficiency with chronic lower leg edema, pulmonary hypertension, and anxiety who presents to the ED with?SOB, PRAOD, and cough x2 weeks found to have acute blood loss anemia likely secondary to UGIB in a pt on anticoagulation. Acute symptomatic blood loss anemia H&H 4.9/18.2, stool positive for occult blood, concerning for UGIB 2 units of blood being transfused now, will repeat H/H after second unit is finished (Lasix 20 mg IV given between blood) continue IV PPI Hold Eliquis NPO for now, if no procedure planned for today will start clear liquids GI consult pending Follow H&H COPD/chronic respiratory failure Not in acute exacerbation Continue home inhalers Continue home 2 L O2 Paroxysmal AFib Continue diltiazem Hold Eliquis Chronic lower leg edema Continue furosemide HLD Continue statin mood continue home SSRI and xanax Full Code DVT Prophylaxis: Pneumatic compression due to acute blood loss anemia Requires ongoing inpatient stay for mangement of blood loss anemia likely secondary to UGIB in a pt on anticoagulation. Pt will require hospital level care for close monitoring of H&H and transfusion as necessary, as well as specialist consultation with GI and likely EGD for further evaluation source of bleeding. Time Spent With Patient Time: Total time managing care of this patient today ____ minutes.
[2024-08-25 16:14] LABS: Hematocrit 26.3 % (37.0-47.0); Hemoglobin 7.8 g/dl (12.0-16.0)
[2024-08-25] MEDS: Acetaminophen 325 MG TABLET 650 MG PO (16:52)
[2024-08-25] MEDS: guaiFENesin DM 200/20/10 ML 10 ML SYRUP PO ×2 (16:53→22:29)
[2024-08-25] MEDS: ondansetron HCL 4 MG/2 ML VIAL IVPUSH (16:53)
--- NOTE | 2024-08-25 17:08 | PC.NURSE ---
Called pharmacy for Atrovent nasal spray. To be administered upon receipt.
[2024-08-25 21:57] LABS: Hematocrit 25.5 % (37.0-47.0); Hemoglobin 7.5 g/dl (12.0-16.0)
[2024-08-25] MEDS: rOPINIRole HCL 0.25 MG TABLET PO (22:29)
[2024-08-25] MEDS: Furosemide 40 MG TABLET PO (22:29)
[2024-08-25] MEDS: Gabapentin 300 MG CAPSULE PO (22:29)
[2024-08-26] VITALS (7 sets, daily range): BP systolic 105–141; BP diastolic 53–65; PULSE 72–86; RESP 18–20; TEMP 36.8–37.2; O2SAT 90–99
[2024-08-26] MEDS: guaiFENesin DM 200/20/10 ML 10 ML SYRUP PO ×3 (03:27→21:01)
[2024-08-26] MEDS: Acetaminophen 325 MG TABLET 650 MG PO ×2 (06:00→21:01)
[2024-08-26] MEDS: Pantoprazole Sodium 40 MG/10 ML VIAL IVPUSH ×2 (06:01→15:05)
[2024-08-26 07:41] LABS: Hematocrit 24.7 % (37.0-47.0); Hemoglobin 7.1 g/dl (12.0-16.0); Mean Corpuscular HGB Conc 28.7 g/dl (31.0-35.0); Mean Corpuscular Hemoglobin 21.6 pg (27.0-33.0); Mean Corpuscular Volume 75.1 fL (80.0-98.0); Platelet Count 560 X10*3/uL (160-400); Red Blood Count 3.29 X10*6/uL (4.20-5.50); Red Cell Distribution Width 23.1 % (11.0-16.0)
[2024-08-26] MEDS: Fluticasone/Umeclidinium/Vilanterol 100/62.5/25 BLST.W.DEV 1 PUFF INHALE (07:45)
[2024-08-26 07:56] LABS: Anion Gap 10 (12-20); Blood Urea Nitrogen 6 mg/dL (9-16); Calcium 8.3 mg/dL (8.4-10.2); Carbon Dioxide 35 mmol/L (22-29); Chloride 97 mmol/L (96-108); Creatinine Clr Calc Pharmacy 76.1; Estimated Glomerular Filt Rate > 60; Glucose Random 82 mg/dL (60-115); Potassium 3.4 mmol/L (3.3-5.1); Sodium 139 mmol/L (135-145)
[2024-08-26] MEDS: dilTIAZem HCL CD 240 MG CAP.ER.DEG PO (08:56)
[2024-08-26] MEDS: Furosemide 40 MG TABLET PO (08:56)
[2024-08-26] MEDS: Escitalopram Oxalate 20 MG TABLET PO (08:57)
[2024-08-26] MEDS: rOPINIRole HCL 0.25 MG TABLET PO ×2 (08:57→20:48)
[2024-08-26] MEDS: 0.9 % Sodium Chloride Flush 3 ML SYRINGE IVFLUSH (08:57)
[2024-08-26] MEDS: Montelukast Sodium 10 MG TABLET PO (08:57)
[2024-08-26] MEDS: Fluticasone Propionate Nasal 16 GM SPRAY 1 SPRAY NOSTRIL-B (08:59)
--- NOTE | 2024-08-26 11:26 | HO.PM.IMPN ---
Subjective Subjective Date of Service: 08/26/24 Interval History: Seen and examined this morning Follow-up for symptomatic anemia, GI bleed No further dark stools overnight. No abdominal pain. Overall feeling better Review of Systems Review of Systems: Yes all other systems are reviewed and are negative Constitutional Constitutional: Denies chills and Denies fever(s) Physical Exam Vital Signs: Vital Signs: Last Vital Signs Temp 98.2 F 08/26/24 10:55 Pulse 86 08/26/24 10:55 Resp 20 08/26/24 10:55 BP 105/56 L 08/26/24 10:55 Pulse Ox 93 08/26/24 10:55 O2 Del Method Nasal Cannula 08/26/24 10:55 O2 Flow Rate 3 08/26/24 10:55 Oxygen Flow Rate 2 08/25/24 03:53 BMI result Body Mass Index 26.8 Const: General: cooperative, comfortable, no acute distress, alert and awake Nutritional Appearance: average body habitus Orientation/consciousness: patient oriented x3 Resp: Effort & Inspection: normal respiratory effort, able to speak in complete sentences, no respiratory distress and no use of accessory muscles Cardio: Rate: regular rate GI: Inspection: No distended Palpation (GI): Soft to palpation and nontender Neuro: General: patient oriented x3 and moves all extremities Extrem: General: Yes no pedal edema Objective Data Active Medications Acetaminophen (Acetaminophen 325 Mg Tablet) 650 mg PO Q6H PRN PRN Reason: Pain, Mild 1-3,fever,headache Last Admin: 08/26/24 06:00 Dose: 650 mg Documented By: CURT Albuterol Sulfate (Albuterol Sulfate 90 Mcg 8 Gm Inhaler) 2 puff INHALE Q4H PRN PRN Reason: shortness of breath or wheezing Alprazolam (Alprazolam 0.25 Mg Tablet) 0.25 mg PO DAILY PRN PRN Reason: Anxiety Diltiazem HCl (Diltiazem Hcl Cd 240 Mg Cap.Er.Deg) 240 mg PO DAILY [facility]; Protocol Last Admin: 08/26/24 08:56 Dose: 240 mg Documented By: LINDA Escitalopram Oxalate (Escitalopram Oxalate 20 Mg Tablet) 20 mg PO DAILY [facility] Last Admin: 08/26/24 08:57 Dose: 20 mg Documented By: LINDA Fluticasone Propionate (Fluticasone Propionate Nasal 16 Gm [place]) 1 spray NOSTRIL-B DAILY PRN PRN Reason: allergies Last Admin: 08/26/24 08:59 Dose: 1 spray Documented By: LINDA Fluticasone/Umeclidinium/Vilanterol (Fluticasone/Umeclidinium/Vilanterol 100/62.5/25 Blst.W.Dev) 1 puff INHALE RDAILY [facility] Last Admin: 08/26/24 07:45 Dose: 1 puff Documented By: SHAYE Furosemide (Furosemide 40 Mg Tablet) 40 mg PO BID [facility]; Protocol Last Admin: 08/26/24 08:56 Dose: 40 mg Documented By: LINDA Gabapentin (Gabapentin 300 Mg Capsule) 300 mg PO BEDTIME [facility] Last Admin: 08/25/24 22:29 Dose: 300 mg Documented By: CURT Guaifenesin/Dextromethorphan (Guaifenesin Dm 200/20/10 Ml 10 Ml Syrup) 10 ml PO Q4H PRN PRN Reason: Cough Last Admin: 08/26/24 03:27 Dose: 10 ml Documented By: CURT Ipratropium [place] (Ipratropium [place] Chan 0.06 % 15 Ml [place]) 2 spray NOSTRIL-B TID [facility] Last Admin: 08/26/24 08:58 Dose: Not Given Documented By: LINDA Non-Admin Reason: waiting for phamacy to bring up Melatonin (Melatonin 3 Mg Tablet) 6 mg PO BEDTIME PRN PRN Reason: Insomnia Montelukast Sodium (Montelukast Sodium 10 Mg Tablet) 10 mg PO DAILY [facility] Last Admin: 08/26/24 08:57 Dose: 10 mg Documented By: LINDA Ondansetron HCl (Ondansetron Hcl 4 Mg/2 Ml Vial) 4 mg IVPUSH Q8H PRN PRN Reason: Nausea and Vomiting Last Admin: 08/25/24 16:53 Dose: 4 mg Documented By: CALIXTO Pantoprazole Sodium (Pantoprazole Sodium 40 Mg/10 Ml Vial) 40 mg IVPUSH BID@0630,1630 [facility] Last Admin: 08/26/24 06:01 Dose: 40 mg Documented By: CURT Ropinirole HCl (Ropinirole Hcl 0.25 Mg Tablet) 0.25 mg PO BID [facility] Last Admin: 08/26/24 08:57 Dose: 0.25 mg Documented By: LINDA Sodium Chloride (0.9 % Sodium Chloride Flush 3 Ml Syringe) 3 ml IVFLUSH QSHIFT [facility] Last Admin: 08/26/24 08:57 Dose: 3 ml Documented By: LINDA Labs 08/26/24 07:17 08/26/24 07:17 Labs: Laboratory Results - last 24 hr 08/25/24 08/26/24 04:34 07:17 MCV 75.1 L D MCH 21.6 L MCHC 28.7 L RDW 23.1 H Plt Count 560 H MPV 9.0 L Absolute Nucleated RBC 0.000 Nucleated RBC % (auto) 0.0 Anion Gap 10 L Estim Creat Clear Calc 76.1 Estimated GFR > 60 Random Glucose 82 Calcium 8.3 L D Crossmatch See Detail Assessment and Plan (1) Acute blood loss anemia: Status: Acute Plan This is an 83-year-old female with a PMH significant for?chronic hypoxemic respiratory failure, COPD on chronic 2 L home O2, paroxysmal AFib on Eliquis, HLD, HTN, venous insufficiency with chronic lower leg edema, pulmonary hypertension, and anxiety who presents to the ED with?SOB, PRADO, and cough x2 weeks found to have acute blood loss anemia likely secondary to UGIB in a pt on anticoagulation. Acute on chronic symptomatic blood loss anemia Follows in the outpatient setting with Hematology for chronic anemia H&H 4.9/18.2 on admission, stool positive for occult blood, concerning for UGIB s/p 2 units of blood; H/H drifting down slowly - follow closely continue IV PPI Hold Eliquis Seen by GI-plan for EGD on Wednesday Follow H&H COPD/chronic respiratory failure Not in acute exacerbation Continue home inhalers Continue home 2 L O2 Possible pneumonia cxr showing ?pna vs atelectasis. no sepsis Incentive spirometry No white count, chronically on supplemental oxygen due to underlying COPD more likely atelectasis, but due to underlying COPD will treat Empirically with IV doxycycline Check procalcitonin Paroxysmal AFib Continue diltiazem Hold Eliquis Chronic lower leg edema Continue furosemide HLD Continue statin mood continue home SSRI and xanax Full Code DVT Prophylaxis: Pneumatic compression due to acute blood loss anemia Requires ongoing inpatient stay for mangement of blood loss anemia likely secondary to UGIB in a pt on anticoagulation. Pt will require hospital level care for close monitoring of H&H and transfusion as necessary, as well as specialist consultation with GI and likely EGD for further evaluation source of bleeding. Quality Stroke Does the patient have a stroke diagnosis?: No VTE Prior VTE?: No VTE Risk Level:: Medical - moderate - high VTE Device Contraindication: N/A - Device Ordered VTE Drug Contraindication: Treatment Not Indicated
[2024-08-26 12:18] LABS: Procalcitonin 0.02 ng/mL
[2024-08-26] MEDS: Doxycycline Hyclate 100 MG in 0.9 % Sodium Chloride 250 ML 166.67 MG IV (12:29)
[2024-08-26 16:56] LABS: Hematocrit 24.7 % (37.0-47.0)
[2024-08-26] MEDS: Gabapentin 300 MG CAPSULE PO (20:49)
[2024-08-27] VITALS (9 sets, daily range): BP systolic 106–125; BP diastolic 51–57; PULSE 66–79; RESP 16–20; TEMP 36.7–37.4; O2SAT 89–96
[2024-08-27] MEDS: Doxycycline Hyclate 100 MG in 0.9 % Sodium Chloride 250 ML 166.67 MG IV ×2 (00:47→12:00)
[2024-08-27] MEDS: Pantoprazole Sodium 40 MG/10 ML VIAL IVPUSH ×2 (05:33→17:51)
[2024-08-27] MEDS: Fluticasone/Umeclidinium/Vilanterol 100/62.5/25 BLST.W.DEV 1 PUFF INHALE (07:41)
[2024-08-27 08:02] LABS: Hematocrit 26.5 % (37.0-47.0); Hemoglobin 7.3 g/dl (12.0-16.0); Mean Corpuscular HGB Conc 27.5 g/dl (31.0-35.0); Mean Corpuscular Hemoglobin 21.3 pg (27.0-33.0); Mean Corpuscular Volume 77.3 fL (80.0-98.0); Mean Platelet Volume 9.4 fL (9.4-12.3); Platelet Count 555 X10*3/uL (160-400); Red Blood Count 3.43 X10*6/uL (4.20-5.50); Red Cell Distribution Width 24.1 % (11.0-16.0); White Blood Count 8.7 X10*3/uL (4.8-10.8)
[2024-08-27 08:23] LABS: Anion Gap 10 (12-20); Blood Urea Nitrogen 13 mg/dL (9-16); Calcium 8.4 mg/dL (8.4-10.2); Carbon Dioxide 34 mmol/L (22-29); Chloride 97 mmol/L (96-108); Creatinine Clr Calc Pharmacy 71.2; Estimated Glomerular Filt Rate > 60; Glucose Random 84 mg/dL (60-115); Potassium 3.4 mmol/L (3.3-5.1); Sodium 138 mmol/L (135-145)
[2024-08-27] MEDS: rOPINIRole HCL 0.25 MG TABLET PO ×2 (10:24→20:08)
[2024-08-27] MEDS: dilTIAZem HCL CD 240 MG CAP.ER.DEG PO (10:24)
[2024-08-27] MEDS: 0.9 % Sodium Chloride Flush 3 ML SYRINGE IVFLUSH ×3 (10:24→20:12)
[2024-08-27] MEDS: Fluticasone Propionate Nasal 16 GM SPRAY 1 SPRAY NOSTRIL-B (10:24)
[2024-08-27] MEDS: guaiFENesin DM 200/20/10 ML 10 ML SYRUP PO ×2 (10:24→17:51)
[2024-08-27] MEDS: Escitalopram Oxalate 20 MG TABLET PO (10:24)
[2024-08-27] MEDS: Montelukast Sodium 10 MG TABLET PO (10:24)
--- NOTE | 2024-08-27 14:10 | HO.PM.IMPN ---
Subjective Subjective Date of Service: 08/27/24 Interval History: seen and examined this morning follow up for gi bleeding having some bloating, no bleeding no sob, intermittent cough Review of Systems Review of Systems: Yes all other systems are reviewed and are negative Constitutional Constitutional: Denies chills and Denies fever(s) Cardiovascular Cardiovascular: Denies chest pain and Denies dyspnea Respiratory Respiratory: Reports cough and Denies dyspnea Gastrointestinal Gastrointestinal: Denies abdominal pain, Denies nausea and Denies vomiting Physical Exam Vital Signs: Vital Signs: Last Vital Signs Temp 98.3 F 08/27/24 11:01 Pulse 75 08/27/24 11:01 Resp 18 08/27/24 11:01 BP 124/52 L 08/27/24 11:01 Pulse Ox 95 08/27/24 11:01 O2 Del Method Nasal Cannula 08/27/24 11:01 O2 Flow Rate 3 08/27/24 11:01 Oxygen Flow Rate 2 08/25/24 03:53 BMI result Body Mass Index 26.8 Const: General: cooperative, comfortable, no acute distress, alert and awake Nutritional Appearance: average body habitus Orientation/consciousness: patient oriented x3 Resp: Effort & Inspection: normal respiratory effort, able to speak in complete sentences, no respiratory distress and no use of accessory muscles Cardio: Rate: regular rate GI: Inspection: No distended Palpation (GI): Soft to palpation and nontender Neuro: General: patient oriented x3 and moves all extremities Extrem: General: Yes no pedal edema Objective Data Active Medications Acetaminophen (Acetaminophen 325 Mg Tablet) 650 mg PO Q6H PRN PRN Reason: Pain, Mild 1-3,fever,headache Last Admin: 08/26/24 21:01 Dose: 650 mg Documented By: CURT Albuterol Sulfate (Albuterol Sulfate 90 Mcg 8 Gm Inhaler) 2 puff INHALE Q4H PRN PRN Reason: shortness of breath or wheezing Alprazolam (Alprazolam 0.25 Mg Tablet) 0.25 mg PO DAILY PRN PRN Reason: Anxiety Diltiazem HCl (Diltiazem Hcl Cd 240 Mg Cap.Er.Deg) 240 mg PO DAILY [facility]; Protocol Last Admin: 08/27/24 10:24 Dose: 240 mg Documented By: LINDA Escitalopram Oxalate (Escitalopram Oxalate 20 Mg Tablet) 20 mg PO DAILY [facility] Last Admin: 08/27/24 10:24 Dose: 20 mg Documented By: LINDA Fluticasone Propionate (Fluticasone Propionate Nasal 16 Gm [place]) 1 spray NOSTRIL-B DAILY PRN PRN Reason: allergies Last Admin: 08/27/24 10:24 Dose: 1 spray Documented By: LNIDA Fluticasone/Umeclidinium/Vilanterol (Fluticasone/Umeclidinium/Vilanterol 100/62.5/25 Blst.W.Dev) 1 puff INHALE RDAILY [facility] Last Admin: 08/27/24 07:41 Dose: 1 puff Documented By: SHAYE Furosemide (Furosemide 40 Mg Tablet) 40 mg PO BID [facility]; Protocol Last Admin: 08/26/24 08:56 Dose: 40 mg Documented By: LINDA Gabapentin (Gabapentin 300 Mg Capsule) 300 mg PO BEDTIME [facility] Last Admin: 08/26/24 20:49 Dose: 300 mg Documented By: CURT Guaifenesin/Dextromethorphan (Guaifenesin Dm 200/20/10 Ml 10 Ml Syrup) 10 ml PO Q4H PRN PRN Reason: Cough Last Admin: 08/27/24 10:24 Dose: 10 ml Documented By: LINDA Doxycycline Hyclate 100 mg/ (Sodium Chloride) 250 mls @ 166.67 mls/hr IV Q12H [facility] Last Infusion: 08/27/24 13:45 Dose: 166.67 mls/hr Documented By: LINDA Ipratropium [place] (Ipratropium [place] Chan 0.06 % 15 Ml [place]) 2 spray NOSTRIL-B TID [facility] Last Admin: 08/27/24 10:24 Dose: Not Given Documented By: LINDA Non-Admin Reason: Med Not Available Melatonin (Melatonin 3 Mg Tablet) 6 mg PO BEDTIME PRN PRN Reason: Insomnia Montelukast Sodium (Montelukast Sodium 10 Mg Tablet) 10 mg PO DAILY [facility] Last Admin: 08/27/24 10:24 Dose: 10 mg Documented By: LINDA Ondansetron HCl (Ondansetron Hcl 4 Mg/2 Ml Vial) 4 mg IVPUSH Q8H PRN PRN Reason: Nausea and Vomiting Last Admin: 08/25/24 16:53 Dose: 4 mg Documented By: CALIXTO Pantoprazole Sodium (Pantoprazole Sodium 40 Mg/10 Ml Vial) 40 mg IVPUSH BID@0630,1630 [facility] Last Admin: 08/27/24 05:33 Dose: 40 mg Documented By: LIA-JOZEConsuelo Ropinirole HCl (Ropinirole Hcl 0.25 Mg Tablet) 0.25 mg PO BID [facility] Last Admin: 08/27/24 10:24 Dose: 0.25 mg Documented By: LINDA Simethicone (Simethicone 80 Mg Tab.Chew) 80 mg PO QIDWMHS PRN PRN Reason: Gas Sodium Chloride (0.9 % Sodium Chloride Flush 3 Ml Syringe) 3 ml IVFLUSH QSHIFT [facility] Last Admin: 08/27/24 10:24 Dose: 3 ml Documented By: LINDA Labs 08/27/24 07:24 08/27/24 07:24 Labs: Laboratory Results - last 24 hr 08/27/24 07:24 MCV 77.3 L MCH 21.3 L MCHC 27.5 L RDW 24.1 H Plt Count 555 H MPV 9.4 Absolute Nucleated RBC 0.000 Nucleated RBC % (auto) 0.0 Anion Gap 10 L Estim Creat Clear Calc 71.2 Estimated GFR > 60 Random Glucose 84 Calcium 8.4 Assessment and Plan (1) Acute blood loss anemia: Status: Acute Plan This is an 83-year-old female with a PMH significant for?chronic hypoxemic respiratory failure, COPD on chronic 2 L home O2, paroxysmal AFib on Eliquis, HLD, HTN, venous insufficiency with chronic lower leg edema, pulmonary hypertension, and anxiety who presents to the ED with?SOB, PRADO, and cough x2 weeks found to have acute blood loss anemia likely secondary to UGIB in a pt on anticoagulation. Acute on chronic symptomatic blood loss anemia Follows in the outpatient setting with Hematology for chronic anemia H&H 4.9/18.2 on admission, stool positive for occult blood, concerning for UGIB s/p 2 units of blood; H/H drifting down slowly - follow closely continue IV PPI Hold Eliquis Seen by GI-plan for EGD on Wednesday Follow H&H COPD/chronic respiratory failure Not in acute exacerbation Continue home inhalers Continue home 2 L O2 Possible pneumonia cxr showing ?pna vs atelectasis. no sepsis No white count, chronically on supplemental oxygen due to underlying COPD. procalcitonin low more likely atelectasis, will d/c abx Paroxysmal AFib Continue diltiazem Hold Eliquis Chronic lower leg edema continue lasix HLD Continue statin mood continue home SSRI and xanax Full Code DVT Prophylaxis: Pneumatic compression due to acute blood loss anemia Requires ongoing inpatient stay for management of blood loss anemia likely secondary to UGIB in a pt on anticoagulation. Pt will require hospital level care for close monitoring of H&H and transfusion as necessary, as well as specialist consultation with GI and likely EGD for further evaluation source of bleeding. Quality Stroke Does the patient have a stroke diagnosis?: No VTE Prior VTE?: No VTE Risk Level:: Medical - moderate - high VTE Device Contraindication: N/A - Device Ordered VTE Drug Contraindication: Treatment Not Indicated
--- NOTE | 2024-08-27 15:12 | P.CONPL_ITS ---
History of Present Illness History of Present Illness Consult date: 08/27/24 Chief complaint: Pulmonary preoperative evaluation Narrative: 83-year-old lady with underlying COPD on 2 L at home, paroxysmal AFib on anticoagulation, pulmonary hypertension secondary to underlying cardiac disease, chronic lower extremity edema admitted on 08/25/2024 with dyspnea and melena. On initial evaluation patient with hemoglobin of 4.9 and elevated BNP. She turns his several units of packed red blood cells with improvement in her hemoglobin and was evaluated by gastroenterology service with plans for an EGD. After transfusion her respiratory status appears to be at baseline with some underlying chronic cough. Review of Systems 2 Constitutional: Constitutional: Denies daytime sleepiness, Denies excessive sweating, Denies fatigue, Denies fever(s), Denies lethargy, Denies malaise, Denies night sweats, Denies snoring and Denies weight loss Eyes: Eyes: Denies blurry vision and Denies itchy eyes ENT: Denies nasal congestion, Denies post nasal drip, Denies sinus pain, Denies sinus pressure and Denies other ( Thrush) Cardiovascular: Cardiovascular: Denies chest pain, Denies pedal edema, Reports dyspnea, Reports dyspnea on exertion, Denies orthopnea and Denies paroxysmal nocturnal dyspnea Respiratory: Respiratory: Reports cough, Denies hemoptysis, Denies excessive phlegm production, Reports dyspnea, Reports dyspnea on exertion, Denies snoring and Denies wheezing Gastrointestinal: Gastrointestinal: Denies abdominal pain and Denies heartburn Musculoskeletal: Musculoskeletal: Denies myalgias, Denies arthralgias and Denies joint swelling Integumentary/Breasts: Skin/Breast: Denies rash Neurologic: Denies memory loss and Denies seizure-like activity Psychiatric: Psychiatric: Denies abnormal sleep pattern, Denies anxiety and Denies memory loss Endocrine: Endocrine: Denies excessive sweating, Denies fatigue and Denies heat intolerance Hematologic/Lymphatic: Hematologic/Lymphatic: Denies easy bruising Allergic/Immunologic: Allergic/Immunologic: Denies itchy eyes, Denies seasonal rhinorrhea and Denies wheezing PMFSH Past Medical History Medical History COPD (chronic obstructive pulmonary disease) PAF (paroxysmal atrial fibrillation) Atrial fibrillation with rapid ventricular response Lung nodule Pleural effusion Pulmonary hypertension Mitral annular calcification Aortic valve calcification Cough Sinusitis Chronic respiratory failure Pneumonia Family History Family History Brother Myocardial infarction Father Stroke Maternal Grandmother Bone cancer Surgical History Surgical History No pertinent past surgical history Social History Social History Household Members: Children Household Members Other:: Daughter and family Housing: House Do you presently have visiting nurse or other home services: Yes (meals on wheels) Alcohol intake: never Patient Tobacco Use Status: Former Tobacco user Tobacco use type: Cigarette e-Cigarette/Vaping Use: Never Used Second Hand Smoke Exposure: No Advance Directives Date on File: 06/21/23 service: No Current occupational status: [employer] Allergies Allergy/AdvReac Type Severity Reaction Status Date / Time No Known Allergies Allergy Verified 08/25/24 03:57 Active Medications: Current Medications Acetaminophen (Acetaminophen 325 Mg Tablet) 650 mg PO Q6H PRN PRN Reason: Pain, Mild 1-3,fever,headache Last Admin: 08/26/24 21:01 Dose: 650 mg Albuterol Sulfate (Albuterol Sulfate 90 Mcg 8 Gm Inhaler) 2 puff INHALE Q4H PRN PRN Reason: shortness of breath or wheezing Alprazolam (Alprazolam 0.25 Mg Tablet) 0.25 mg PO DAILY PRN PRN Reason: Anxiety Diltiazem HCl (Diltiazem Hcl Cd 240 Mg Cap.Er.Deg) 240 mg PO DAILY [facility]; Protocol Last Admin: 08/27/24 10:24 Dose: 240 mg Escitalopram Oxalate (Escitalopram Oxalate 20 Mg Tablet) 20 mg PO DAILY [facility] Last Admin: 08/27/24 10:24 Dose: 20 mg Fluticasone Propionate (Fluticasone Propionate Nasal 16 Gm [place]) 1 spray NOSTRIL-B DAILY PRN PRN Reason: allergies Last Admin: 08/27/24 10:24 Dose: 1 spray Fluticasone/Umeclidinium/Vilanterol (Fluticasone/Umeclidinium/Vilanterol 100/62.5/25 Blst.W.Dev) 1 puff INHALE RDAILY [facility] Last Admin: 08/27/24 07:41 Dose: 1 puff Furosemide (Furosemide 40 Mg Tablet) 40 mg PO BID [facility]; Protocol Last Admin: 08/26/24 08:56 Dose: 40 mg Gabapentin (Gabapentin 300 Mg Capsule) 300 mg PO BEDTIME [facility] Last Admin: 08/26/24 20:49 Dose: 300 mg Guaifenesin/Dextromethorphan (Guaifenesin Dm 200/20/10 Ml 10 Ml Syrup) 10 ml PO Q4H PRN PRN Reason: Cough Last Admin: 08/27/24 10:24 Dose: 10 ml Doxycycline Hyclate 100 mg/ (Sodium Chloride) 250 mls @ 166.67 mls/hr IV Q12H [facility] Last Infusion: 08/27/24 14:45 Dose: Infused Ipratropium [place] (Ipratropium [place] Chan 0.06 % 15 Ml [place]) 2 spray NOSTRIL-B TID [facility] Last Admin: 08/27/24 10:24 Dose: Not Given Melatonin (Melatonin 3 Mg Tablet) 6 mg PO BEDTIME PRN PRN Reason: Insomnia Montelukast Sodium (Montelukast Sodium 10 Mg Tablet) 10 mg PO DAILY [facility] Last Admin: 08/27/24 10:24 Dose: 10 mg Ondansetron HCl (Ondansetron Hcl 4 Mg/2 Ml Vial) 4 mg IVPUSH Q8H PRN PRN Reason: Nausea and Vomiting Last Admin: 08/25/24 16:53 Dose: 4 mg Pantoprazole Sodium (Pantoprazole Sodium 40 Mg/10 Ml Vial) 40 mg IVPUSH BID@0630,1630 [facility] Last Admin: 08/27/24 05:33 Dose: 40 mg Ropinirole HCl (Ropinirole Hcl 0.25 Mg Tablet) 0.25 mg PO BID [facility] Last Admin: 08/27/24 10:24 Dose: 0.25 mg Simethicone (Simethicone 80 Mg Tab.Chew) 80 mg PO QIDWMHS PRN PRN Reason: Gas Sodium Chloride (0.9 % Sodium Chloride Flush 3 Ml Syringe) 3 ml IVFLUSH QSHIFT [facility] Last Admin: 08/27/24 10:24 Dose: 3 ml Home Medications ?Medication ?Instructions ?Recorded ?Confirmed ?Last Taken ?Type albuterol sulfate 2.5 mg/3 mL 2.5 mg inhalation Q4H PRN Wheezing 03/07/21 08/25/2425 History (0.083 %) solution for nebulization famotidine 20 mg tablet 20 mg PO DAILY@0800 03/07/21 08/25/24 08/24/24 History pravastatin 40 mg tablet 40 mg PO DAILY@0803/07/21 08/25/24 08/24/24 History turmeric root extract 500 mg 500 mg PO DAILY@0800 09/19/21 08/25/24 08/24/24 History capsule Oxygen Home Use 09/22/22 04/03/24 Unknown History nebulizers 09/22/22 04/03/24 Unknown History alprazolam 0.25 mg tablet 0.25 mg PO DAILY PRN Anxiety 08/26/23 08/25/24 08/24/24 History apixaban 5 mg tablet (Eliquis) 5 mg PO BID 08/26/23 08/25/24 08/24/24 History citalopram 20 mg tablet 40 mg PO DAILY 08/26/23 08/25/24 08/24/24 History fluticasone propionate 50 50 mcg intranasal DAILY PRN 08/26/23 08/25/24 08/24/24 History mcg/actuation nasal allergies spray,suspension (Flonase Allergy Relief) furosemide 40 mg tablet 40 mg PO BID 08/26/23 08/25/24 08/24/24 History ropinirole 0.25 mg tablet 0.25 mg PO BID 08/26/23 08/25/24 08/24/24 History trazodone 50 mg tablet 50 mg PO BEDTIME PRN sleep 08/14/24 08/25/24 08/24/24 History albuterol sulfate 90 mcg/actuation 2 puff inhalation Q4H PRN 08/25/24 08/25/24 08/24/24 History aerosol inhaler shortness of breath or wheezing biotin 10,000 mcg chewable tablet 10,000 mcg PO DAILY 08/25/24 08/25/24 08/24/24 History (Hair, Skin and Nails (biotin)) calcium 600 mg (as 1 tab PO DAILY 08/25/24 08/25/24 08/24/24 History carbonate)-vitamin D3 5 mcg (200 unit) tablet fluticasone fur. 100 mcg-umeclid 1 inh PO DAILY 0208/25/24 08/24/24 History 62.5 mcg-vilant 25 mcg inhalat.powder (Trelegy Ellipta) psyllium husk 0.4 gram capsule 0.4 g PO DAILY 08/25/24 08/25/24 08/24/24 History (Metamucil) Physical Exam 2 Vital Signs: Vital Signs: Last Vital Signs Temp 98.3 F 08/27/24 11:01 Pulse 75 08/27/24 11:01 Resp 18 08/27/24 11:01 BP 124/52 L 08/27/24 11:01 Pulse Ox 95 08/27/24 11:01 O2 Del Method Nasal Cannula 08/27/24 11:01 O2 Flow Rate 3 08/27/24 11:01 Oxygen Flow Rate 2 08/25/24 03:53 BMI result Body Mass Index 26.8 Const: General: no acute distress and alert Nutritional Appearance: not obese Orientation/consciousness: Other orientation findings ( oriented) HEENT: Head: Yes atraumatic Eyes: General: appearance normal, both eyes and all related structures S clerae: sclerae normal EOM: EOMs intact bilaterally Neck: Neck: Yes supple Lymphatic: no lymphadenopathy noted Resp: Effort & Inspection: normal respiratory effort and no use of accessory muscles Auscultation: clear to auscultation bilaterally Cardio: Rate: regular rate Rhythm: regular rhythm Heart sounds: no gallops, no murmurs and no rubs Skin: General skin exam: other ( warm) Extrem: General: No clubbing, No cyanosis and Yes edema (Trace bilateral) Results Laboratory Findings 08/27/24 07:24 08/27/24 07:24 Abnormal lab findings: Abnormal Labs 08/25/24 08/25/24 08/25/24 04:14 04:34 08:33 RBC 2.63 L D Hgb 4.9 L* D Hct 18.2 L* D MCV 69.2 L MCH 18.6 L MCHC 26.9 L RDW 20.5 H Plt Count 647 H D MPV 8.6 L Neut % (Auto) 73.1 H Lymph % (Auto) 14.3 L [place] % (Auto) 11.1 H Abs Immat Gran (auto) 0.04 H Absolute Nucleated RBC 0.030 H Nucleated RBC % (auto) 0.3 H Carbon Dioxide 34 H Anion Gap BUN Random Glucose 135 H Calcium Troponin I High Sens 18.9 H 17.3 H B-Natriuretic Peptide 321 H Albumin 3.4 L Crossmatch See Detail 08/25/24 08/25/24 08/26/24 16:08 21:46 07:17 RBC 3.29 L D Hgb 7.8 L D 7.5 L 7.1 L Hct 26.3 L D 25.5 L 24.7 L MCV 75.1 L D MCH 21.6 L MCHC 28.7 L RDW 23.1 H Plt Count 560 H MPV 9.0 L Neut % (Auto) Lymph % (Auto) [place] % (Auto) Abs Immat Gran (auto) Absolute Nucleated RBC Nucleated RBC % (auto) Carbon Dioxide 35 H Anion Gap 10 L BUN 6 L Random Glucose Calcium 8.3 L D Troponin I High Sens B-Natriuretic Peptide Albumin Crossmatch 08/26/24 08/27/24 16:14 07:24 RBC 3.43 L Hgb 7.0 L* 7.3 L Hct 24.7 L 26.5 L MCV 77.3 L MCH 21.3 L MCHC 27.5 L RDW 24.1 H Plt Count 555 H MPV Neut % (Auto) Lymph % (Auto) [place] % (Auto) Abs Immat Gran (auto) Absolute Nucleated RBC Nucleated RBC % (auto) Carbon Dioxide 34 H Anion Gap 10 L BUN Random Glucose Calcium Troponin I High Sens B-Natriuretic Peptide Albumin Crossmatch Assessment and Plan (1) COPD (chronic obstructive pulmonary disease): Qualifiers: COPD type: emphysema Emphysema type: centrilobular Qualified Code(s): J43.2 - Centrilobular emphysema Status: Acute (2) Supplemental oxygen dependent: Status: Acute (3) Pulmonary hypertension, pre-operative cardiovascular examination: Status: Acute Plan Impression: 83-year-old lady admitted with dyspnea secondary to subacute anemia with presenting hemoglobin of 4.9, likely secondary to underlying slow GI bleed, now with respiratory status serous baseline after increasing her hemoglobin above 7. Patient being planned for endoscopic evaluation. Recommendation: Continue home regimen including trilogy and nebulized bronchodilators. Continue supplemental oxygen to maintain O2 saturation of 89- 92%. At this time patient is at low risk for pulmonary perioperative complications for the proposed endoscopy either under general anesthesia, or monitored anesthesia care. Procedures Date of Service Date of Service: 08/27/24
[2024-08-27] MEDS: Gabapentin 300 MG CAPSULE PO (20:07)
[2024-08-27] MEDS: Acetaminophen 325 MG TABLET 650 MG PO (20:10)
[2024-08-28] VITALS (12 sets, daily range): BP systolic 92–123; BP diastolic 38–71; PULSE 55–74; RESP 16–19; TEMP 36.3–37.4; O2SAT 88–99
[2024-08-28] MEDS: guaiFEN/Codeine SF 200/20/10ML 10 ML LIQUID PO ×4 (02:22→20:48)
[2024-08-28] MEDS: Pantoprazole Sodium 40 MG/10 ML VIAL IVPUSH ×2 (05:28→16:38)
[2024-08-28] MEDS: Albuterol Sulfate (0.083%) 2.5 MG/3 ML VIAL.NEB INHALE (05:49)
[2024-08-28 07:08] LABS: Hematocrit 25.7 % (37.0-47.0); Hemoglobin 7.2 g/dl (12.0-16.0); Mean Corpuscular Hemoglobin 21.5 pg (27.0-33.0); Mean Corpuscular Volume 76.7 fL (80.0-98.0); Mean Platelet Volume 9.5 fL (9.4-12.3); Platelet Count 508 X10*3/uL (160-400); Red Blood Count 3.35 X10*6/uL (4.20-5.50); Red Cell Distribution Width 24.6 % (11.0-16.0); White Blood Count 8.6 X10*3/uL (4.8-10.8)
[2024-08-28] MEDS: rOPINIRole HCL 0.25 MG TABLET PO ×2 (07:47→20:48)
[2024-08-28] MEDS: Montelukast Sodium 10 MG TABLET PO (07:47)
[2024-08-28] MEDS: dilTIAZem HCL CD 240 MG CAP.ER.DEG PO (07:47)
[2024-08-28] MEDS: Escitalopram Oxalate 20 MG TABLET PO (07:47)
[2024-08-28] MEDS: 0.9 % Sodium Chloride Flush 3 ML SYRINGE IVFLUSH ×2 (07:47→18:15)
[2024-08-28] MEDS: Fluticasone Propionate Nasal 16 GM SPRAY 1 SPRAY NOSTRIL-B (07:48)
[2024-08-28] MEDS: Fluticasone/Umeclidinium/Vilanterol 100/62.5/25 BLST.W.DEV 1 PUFF INHALE (08:01)
--- NOTE | 2024-08-28 09:49 | MHC.SHP ---
Pre-Procedural Eval Section A - 24 Hr Update-Section A only Date of Service: 08/28/24 The patient is an INPATIENT: Yes Changes since office visit: Yes New Medical Problems, Yes Changes in Medication and Yes Patient answered all questions; No Cold of Flu in the past 2 weeks The patient has been examined within 24 hours of the surgical procedure. The History & Physical has been completed within 30 days and I have reviewed it.: Yes Section B - Complete if H&P > 30 days Chief Complaint: Pulmonary preoperative evaluation Allergies: Allergies Allergy/AdvReac Type Severity Reaction Status Date / Time No Known Allergies Allergy Verified 08/25/24 03:57 Plan Diagnosis/Plan: Unchanged I have reviewed the history and physical and performed a pertinent physical examination on my patient. No changes have occurred unless specified. Time Spent With Patient Time: Total time managing care of this patient today ____ minutes.
--- NOTE | 2024-08-28 09:55 | P.CONAN_ITS ---
[facility] Active Problems Active Problems: All Active Problems Pulmonary hypertension, pre-operative cardiovascular examination (Acute) Supplemental oxygen dependent (Acute) Acute blood loss anemia (Acute) Abdominal pain (Acute) Chest pain, exertional (Acute) Microcytic anemia (Acute) Microcytic hypochromic anemia (Acute) Fatigue (Acute) Diastolic dysfunction (Acute) Abnormal EKG (Acute) Abnormal CXR (Acute) Hospital discharge follow-up (Acute) COPD (chronic obstructive pulmonary disease) (Acute) Hypoxia (Acute) Bronchopneumonia (Acute) Pneumonia (Acute) Lung nodule (Acute) Leg edema (Acute) Pleural effusion (Acute) Pulmonary hypertension (Acute) Mitral annular calcification (Acute) Aortic valve calcification (Acute) Cough (Acute) Sinusitis (Acute) Sepsis (Acute) Acute pneumonia (Acute) Acute exacerbation of chronic obstructive airways disease (Acute) Adenoviral bronchitis (Acute) Pneumonia (Acute) Past Medical History Medical History COPD (chronic obstructive pulmonary disease) PAF (paroxysmal atrial fibrillation) Atrial fibrillation with rapid ventricular response Lung nodule Pleural effusion Pulmonary hypertension Mitral annular calcification Aortic valve calcification Cough Sinusitis Chronic respiratory failure Pneumonia Family History Family History Brother Myocardial infarction Father Stroke Maternal Grandmother Bone cancer Family history of problems with anesthesia: No Surgical History Surgical History No pertinent past surgical history History of Problems with Anesthesia: No Social History Social History Household Members: Children Household Members Other:: Daughter and family Housing: House Do you presently have visiting nurse or other home services: Yes (meals on wheels) Alcohol intake: never Patient Tobacco Use Status: Former Tobacco user Tobacco use type: Cigarette e-Cigarette/Vaping Use: Never Used Second Hand Smoke Exposure: No Advance Directives Date on File: 06/21/23 service: No Current occupational status: retired [employer] Allergies Allergy/AdvReac Type Severity Reaction Status Date / Time No Known Allergies Allergy Verified 08/25/24 03:57 Active Medications: Current Medications Acetaminophen (Acetaminophen 325 Mg Tablet) 650 mg PO Q6H PRN PRN Reason: Pain, Mild 1-3,fever,headache Last Admin: 08/27/24 20:10 Dose: 650 mg Albuterol Sulfate (Albuterol Sulfate (0.083%) 2.5 Mg/3 Ml Vial.Neb) 2.5 mg INHALE RQ4H PRN PRN Reason: Wheezing Last Admin: 08/28/24 05:49 Dose: 2.5 mg Alprazolam (Alprazolam 0.25 Mg Tablet) 0.25 mg PO DAILY PRN PRN Reason: Anxiety Diltiazem HCl (Diltiazem Hcl Cd 240 Mg Cap.Er.Deg) 240 mg PO DAILY [facility]; Protocol Last Admin: 08/28/24 07:47 Dose: 240 mg Escitalopram Oxalate (Escitalopram Oxalate 20 Mg Tablet) 20 mg PO DAILY [facility] Last Admin: 08/28/24 07:47 Dose: 20 mg Fluticasone Propionate (Fluticasone Propionate Nasal 16 Gm [place]) 1 spray NOSTRIL-B DAILY PRN PRN Reason: allergies Last Admin: 08/28/24 07:48 Dose: 1 spray Fluticasone/Umeclidinium/Vilanterol (Fluticasone/Umeclidinium/Vilanterol 100/62.5/25 Blst.W.Dev) 1 puff INHALE RDAILY [facility] Last Admin: 08/28/24 08:01 Dose: 1 puff Furosemide (Furosemide 40 Mg Tablet) 40 mg PO BID [facility]; Protocol Last Admin: 08/28/24 08:59 Dose: Not Given Gabapentin (Gabapentin 300 Mg Capsule) 300 mg PO BEDTIME [facility] Last Admin: 08/27/24 20:07 Dose: 300 mg Guaifenesin/Codeine Phosphate (Guaifen/Codeine Sf 200/20/10ml 10 Ml Liquid) 10 ml PO Q6H PRN PRN Reason: cough Last Admin: 08/28/24 07:56 Dose: 10 ml Ipratropium [place] (Ipratropium [place] Chan 0.06 % 15 Ml [place]) 2 spray NOSTRIL-B TID [facility] Last Admin: 08/28/24 09:01 Dose: Not Given Montelukast Sodium (Montelukast Sodium 10 Mg Tablet) 10 mg PO DAILY [facility] Last Admin: 08/28/24 07:47 Dose: 10 mg Naloxone HCl (Naloxone Hcl 0.4 Mg/Ml Vial) 0.04 mg IVPUSH Q5M PRN PRN Reason: Excessive sedation or RR < 8 Ondansetron HCl (Ondansetron Hcl 4 Mg/2 Ml Vial) 4 mg IVPUSH Q8H PRN PRN Reason: Nausea and Vomiting Last Admin: 08/25/24 16:53 Dose: 4 mg Pantoprazole Sodium (Pantoprazole Sodium 40 Mg/10 Ml Vial) 40 mg IVPUSH BID@0630,1630 [facility] Last Admin: 08/28/24 05:28 Dose: 40 mg Ropinirole HCl (Ropinirole Hcl 0.25 Mg Tablet) 0.25 mg PO BID [facility] Last Admin: 08/28/24 07:47 Dose: 0.25 mg Simethicone (Simethicone 80 Mg Tab.Chew) 80 mg PO QIDWMHS PRN PRN Reason: Gas Sodium Chloride (0.9 % Sodium Chloride Flush 3 Ml Syringe) 3 ml IVFLUSH QSHIFT [facility] Last Admin: 08/28/24 07:47 Dose: 3 ml Trazodone HCl (Trazodone Hcl 25 Mg Halftab) 25 mg PO BEDTIME MRX1 PRN PRN Reason: Insomnia Home Medications ?Medication ?Instructions ?Recorded ?Confirmed ?Last Taken ?Type albuterol sulfate 2.5 mg/3 mL 2.5 mg inhalation Q4H PRN Wheezing 03/07/21 08/25/24 08/24/24 History (0.083 %) solution for nebulization famotidine 20 mg tablet 20 mg PO DAILY@0803/07/21 08/25/24 08/24/24 History pravastatin 40 mg tablet 40 mg PO DAILY@79903/07/21 08/25/24 08/24/24 History turmeric root extract 500 mg 500 mg PO DAILY@0809/19/21 08/25/24 08/24/24 History capsule Oxygen Home Use 09/22/22 04/03/24 Unknown History nebulizers 09/22/22 04/03/24 Unknown History alprazolam 0.25 mg tablet 0.25 mg PO DAILY PRN Anxiety 08/26/23 08/25/24 08/24/24 History apixaban 5 mg tablet (Eliquis) 5 mg PO BID 08/26/23 08/25/24 08/24/24 History citalopram 20 mg tablet 40 mg PO DAILY 08/26/23 08/25/24 08/24/24 History fluticasone propionate 50 50 mcg intranasal DAILY PRN 08/26/23 08/25/24 08/24/24 History mcg/actuation nasal allergies spray,suspension (Flonase Allergy Relief) furosemide 40 mg tablet 40 mg PO BID 08/26/23 08/25/24 08/24/24 History ropinirole 0.25 mg tablet 0.25 mg PO BID 08/26/23 08/25/24 08/24/24 History trazodone 50 mg tablet 50 mg PO BEDTIME PRN sleep 08/14/24 08/25/24 08/24/24 History albuterol sulfate 90 mcg/actuation 2 puff inhalation Q4H PRN 08/25/24 08/25/24 08/24/24 History aerosol inhaler shortness of breath or wheezing biotin 10,000 mcg chewable tablet 10,000 mcg PO DAILY 08/25/24 08/25/24 08/24/24 History (Hair, Skin and Nails (biotin)) calcium 600 mg (as 1 tab PO DAILY 08/25/24 08/25/24 08/24/24 History carbonate)-vitamin D3 5 mcg (200 unit) tablet fluticasone fur. 100 mcg-umeclid 1 inh PO DAILY 08/25/24 08/25/24 08/24/24 History 62.5 mcg-vilant 25 mcg inhalat.powder (Trelegy Ellipta) psyllium husk 0.4 gram capsule 0.4 g PO DAILY 08/25/24 08/25/24 08/24/24 History (Metamucil) Exam Height,Weight and Vital Signs: Height 5 ft 5 in Weight 73.028 kg Last Vital Signs Temp 98.1 F 08/28/24 07:29 Pulse 64 08/28/24 08:06 Resp 18 08/28/24 08:06 BP 123/59 L 08/28/24 07:29 Pulse Ox 88 L 08/28/24 07:29 O2 Del Method Nasal Cannula 08/28/24 07:29 O2 Flow Rate 2 08/28/24 07:29 Oxygen Flow Rate 2 08/25/24 03:53 Pertinent Lab Results Pertinent Lab Results: Laboratory Tests 08/25/24 08/25/24 08/25/24 04:10 04:14 04:34 WBC 8.9 RBC 2.63 L D Hgb 4.9 L* D Hct 18.2 L* D MCV 69.2 L MCH 18.6 L MCHC 26.9 L RDW 20.5 H Plt Count 647 H D MPV 8.6 L Immature Gran % (Auto) 0.4 Neut % (Auto) 73.1 H Lymph % (Auto) 14.3 L [place] % (Auto) 11.1 H Eos % (Auto) 0.3 Baso % (Auto) 0.8 Lymph # (Auto) 1.3 [place] # (Auto) 1.0 Eos # (Auto) 0.0 Baso # (Auto) 0.1 Abs Immat Gran (auto) 0.04 H Absolute Neuts (auto) 6.5 Absolute Nucleated RBC 0.030 H Nucleated RBC % (auto) 0.3 H Smear Path Review SEE NOTE Sodium 138 Potassium 3.5 Chloride 96 Carbon Dioxide 34 H Anion Gap 12 BUN 10 Creatinine 0.63 Estim Creat Clear Calc 70.0 Estimated GFR > 60 Random Glucose 135 H Calcium 8.9 Total Bilirubin 0.3 AST 26 ALT 10 Alkaline Phosphatase 81 Troponin I High Sens 18.9 H B-Natriuretic Peptide 321 H Total Protein 7.2 Albumin 3.4 L Procalcitonin Stool Occult Blood Influenza Type A (PCR) NEGATIVE Influenza Type B (PCR) NEGATIVE RSV RNA Qual (PCR) NEGATIVE SARS-CoV-2 RNA (RT-PCR) NEGATIVE Blood Type O Positive Antibody Screen NEGATIVE Crossmatch See Detail 08/25/24 08/25/24 08/25/24 05:11 08:33 16:08 WBC RBC Hgb 7.8 L D Hct 26.3 L D MCV MCH MCHC RDW Plt Count MPV Immature Gran % (Auto) Neut % (Auto) Lymph % (Auto) [place] % (Auto) Eos % (Auto) Baso % (Auto) Lymph # (Auto) [place] # (Auto) Eos # (Auto) Baso # (Auto) Abs Immat Gran (auto) Absolute Neuts (auto) Absolute Nucleated RBC Nucleated RBC % (auto) Smear Path Review Sodium Potassium Chloride Carbon Dioxide Anion Gap BUN Creatinine Estim Creat Clear Calc Estimated GFR Random Glucose Calcium Total Bilirubin AST ALT Alkaline Phosphatase Troponin I High Sens 17.3 H B-Natriuretic Peptide Total Protein Albumin Procalcitonin Stool Occult Blood POSITIVE Influenza Type A (PCR) Influenza Type B (PCR) RSV RNA Qual (PCR) SARS-CoV-2 RNA (RT-PCR) Blood Type Antibody Screen Crossmatch 08/25/24 08/26/24 08/26/24 21:46 07:17 16:14 WBC 8.0 RBC 3.29 L D Hgb 7.5 L 7.1 L 7.0 L* Hct 25.5 L 24.7 L 24.7 L MCV 75.1 L D MCH 21.6 L MCHC 28.7 L RDW 23.1 H Plt Count 560 H MPV 9.0 L Immature Gran % (Auto) Neut % (Auto) Lymph % (Auto) [place] % (Auto) Eos % (Auto) Baso % (Auto) Lymph # (Auto) [place] # (Auto) Eos # (Auto) Baso # (Auto) Abs Immat Gran (auto) Absolute Neuts (auto) Absolute Nucleated RBC 0.000 Nucleated RBC % (auto) 0.0 Smear Path Review Sodium 139 Potassium 3.4 Chloride 97 Carbon Dioxide 35 H Anion Gap 10 L BUN 6 L Creatinine 0.58 Estim Creat Clear Calc 76.1 Estimated GFR > 60 Random Glucose 82 Calcium 8.3 L D Total Bilirubin AST ALT Alkaline Phosphatase Troponin I High Sens B-Natriuretic Peptide Total Protein Albumin Procalcitonin 0.02 Stool Occult Blood Influenza Type A (PCR) Influenza Type B (PCR) RSV RNA Qual (PCR) SARS-CoV-2 RNA (RT-PCR) Blood Type Antibody Screen Crossmatch 08/27/24 08/28/24 07:24 06:25 WBC 8.7 8.6 RBC 3.43 L 3.35 L Hgb 7.3 L 7.2 L Hct 26.5 L 25.7 L MCV 77.3 L 76.7 L MCH 21.3 L 21.5 L MCHC 27.5 L 28.0 L RDW 24.1 H 24.6 H Plt Count 555 H 508 H MPV 9.4 9.5 Immature Gran % (Auto) Neut % (Auto) Lymph % (Auto) [place] % (Auto) Eos % (Auto) Baso % (Auto) Lymph # (Auto) [place] # (Auto) Eos # (Auto) Baso # (Auto) Abs Immat Gran (auto) Absolute Neuts (auto) Absolute Nucleated RBC 0.000 0.000 Nucleated RBC % (auto) 0.0 0.0 Smear Path Review Sodium 138 Potassium 3.4 Chloride 97 Carbon Dioxide 34 H Anion Gap 10 L BUN 13 Creatinine 0.62 Estim Creat Clear Calc 71.2 Estimated GFR > 60 Random Glucose 84 Calcium 8.4 Total Bilirubin AST ALT Alkaline Phosphatase Troponin I High Sens B-Natriuretic Peptide Total Protein Albumin Procalcitonin Stool Occult Blood Influenza Type A (PCR) Influenza Type B (PCR) RSV RNA Qual (PCR) SARS-CoV-2 RNA (RT-PCR) Blood Type Antibody Screen Crossmatch Airway Mallampati Class: III (missing bottom front tooth, deies anything loose) TM Dist: >3cm Neck ROM: Full Heart: rrr Lungs: cta Assessment and Plan Assessment Anesthesia Assessment: Anesthesia Plan Discussed and Chart Reviewed Final Anesthetic Review Family History of Problems with Anesthesia: No History of Problems with Anesthesia: No NPO: Yes ASA Class: III Final Preanesthetic Review: No Changes in Pt Med Stat, Meds/Allgs Chart Reviewed and Consent Obtained/Reviewed Patient Risk: Intermediate Procedure Risk: Intermediate Anesthetic Plan Anesthetic Plan: MAC: Disposition: Standard PACU
[2024-08-28] MEDS: Lactated Ringers 1,000 ML 80 ML IVCONT ×2 (09:58→21:36)
--- NOTE | 2024-08-28 10:16 | W.PM.OPN ---
Operative Note Operative Note Date of Service: 08/28/24 Narrative: FLEXIBLE TRANSORAL UPPER GASTROINTESTINAL ENDOSCOPY WITH BIOPSIES Pre-op diagnosis: Acute on chronic anemia, GI bleeding Post-op diagnosis: Gastritis, gastric polyps, duodenal nodule Endoscopist:? Dionicio Velez MD Anesthesia:?MAC UPPER ENDOSCOPY Consent: Indications for the procedure and potential complications of bleeding, perforation, reaction to medications and missed diagnosis were discussed with the patient and informed consent was obtained. Instrument: Olympus GIF H 190 mid size upper endoscope Monitoring: Vital signs and clinical assessment, continuous EKG monitoring, Pulse oximetry, Carbon Dioxide monitoring and blood pressure monitoring were done throughout the procedure. Procedure: The patient was placed in the left lateral decubitis position and pre-procedure medications were administered and a bite block was placed. The endoscope was inserted into the mouth and advanced under direct vision to the third part of duodenum. A careful inspection was made as the upper endoscope was withdrawn including a retroflexed examination of the proximal stomach; Findings and interventions are described below. Findings: Larynx: Normal Esophagus: GE junction at 38 cms. Mildly tortuous esophagus. No esophagitis or Valdez's Stomach: A few 4-5 mm benign appearing polyps in the gastric body - biopsied. Moderate gastric antral erythema - biopsies were obtained from the antrum. Grade 2 flap valve on retroflexed examination of the cardia. Duodenum: Normal bulb. A 7-8 mm benign appearing nodule in the 2nd part of the duodenum - biopsied. Intervention: Biopsies as noted above Impression and Post Procedure Diagnosis: Endoscopy Findings: ESOPHAGUS: Mildly tortuous esophagus. STOMACH: Gastritis and benign appearing gastric polyps DUODENUM: Benign appearing duodenal nodule No source of anemia or UGI bleeding noted in the upper GI tract during EGD Plan: Clear liquid diet and Golytely prep today. Pt scheduled for a colonoscopy on 08/29/24 at 11 am. Above findings were reviewed with the patient.
--- NOTE | 2024-08-28 10:34 | P.PNIM_ITS ---
Subjective Subjective Date of Service: 08/28/24 Interval History: seen and examined this morning follow up for gi bleeding no sob, intermittent cough Review of Systems Review of Systems: Yes all other systems are reviewed and are negative Constitutional Constitutional: Denies chills and Denies fever(s) Cardiovascular Cardiovascular: Denies chest pain and Denies dyspnea Respiratory Respiratory: Reports cough and Denies dyspnea Gastrointestinal Gastrointestinal: Denies abdominal pain, Denies nausea and Denies vomiting Physical Exam 2 Vital Signs: Vital Signs: Last Vital Signs Temp 98.8 F 08/28/24 10:18 Pulse 55 08/28/24 10:18 Resp 16 08/28/24 10:18 BP 92/53 L 08/28/24 10:18 Pulse Ox 95 08/28/24 10:18 O2 Del Method Nasal Cannula 08/28/24 10:18 O2 Flow Rate 2 08/28/24 10:18 Oxygen Flow Rate 2 08/28/24 08:34 BMI result Body Mass Index 26.8 Objective Data Active Medications Acetaminophen (Acetaminophen 325 Mg Tablet) 650 mg PO Q6H PRN PRN Reason: Pain, Mild 1-3,fever,headache Last Admin: 08/27/24 20:10 Dose: 650 mg Documented By: NASRA Albuterol Sulfate (Albuterol Sulfate (0.083%) 2.5 Mg/3 Ml Vial.Neb) 2.5 mg INHALE RQ4H PRN PRN Reason: Wheezing Last Admin: 08/28/24 05:49 Dose: 2.5 mg Documented By: RUBEN Alprazolam (Alprazolam 0.25 Mg Tablet) 0.25 mg PO DAILY PRN PRN Reason: Anxiety Diltiazem HCl (Diltiazem Hcl Cd 240 Mg Cap.Er.Deg) 240 mg PO DAILY [facility]; Protocol Last Admin: 08/28/24 07:47 Dose: 240 mg Documented By: VIDAL Escitalopram Oxalate (Escitalopram Oxalate 20 Mg Tablet) 20 mg PO DAILY [facility] Last Admin: 08/28/24 07:47 Dose: 20 mg Documented By: VIDAL Fluticasone Propionate (Fluticasone Propionate Nasal 16 Gm [place]) 1 spray NOSTRIL-B DAILY PRN PRN Reason: allergies Last Admin: 08/28/24 07:48 Dose: 1 spray Documented By: VIDAL Fluticasone/Umeclidinium/Vilanterol (Fluticasone/Umeclidinium/Vilanterol 100/62.5/25 Blst.W.Dev) 1 puff INHALE RDAILY [facility] Last Admin: 08/28/24 08:01 Dose: 1 puff Documented By: DANIEL Furosemide (Furosemide 40 Mg Tablet) 40 mg PO BID [facility]; Protocol Last Admin: 08/28/24 08:59 Dose: Not Given Documented By: VIDAL Non-Admin Reason: Physician Held Med Gabapentin (Gabapentin 300 Mg Capsule) 300 mg PO BEDTIME [facility] Last Admin: 08/27/24 20:07 Dose: 300 mg Documented By: NASRA Guaifenesin/Codeine Phosphate (Guaifen/Codeine Sf 200/20/10ml 10 Ml Liquid) 10 ml PO Q6H PRN PRN Reason: cough Last Admin: 08/28/24 07:56 Dose: 10 ml Documented By: VIDAL Lactated Ringer's (Lr) 1,000 mls @ 80 mls/hr IVCONT .[id number] [facility] Last Admin: 08/28/24 09:58 Dose: 80 mls/hr Documented By: JOSEFINA Ipratropium Benedict (Ipratropium [place] Chan 0.06 % 15 Ml [place]) 2 spray NOSTRIL-B TID [facility] Last Admin: 08/28/24 09:01 Dose: Not Given Documented By: VIDAL Non-Admin Reason: Patient Refused Montelukast Sodium (Montelukast Sodium 10 Mg Tablet) 10 mg PO DAILY [facility] Last Admin: 08/28/24 07:47 Dose: 10 mg Documented By: VIDAL Naloxone HCl (Naloxone Hcl 0.4 Mg/Ml Vial) 0.04 mg IVPUSH Q5M PRN PRN Reason: Excessive sedation or RR < 8 Ondansetron HCl (Ondansetron Hcl 4 Mg/2 Ml Vial) 4 mg IVPUSH Q8H PRN PRN Reason: Nausea and Vomiting Last Admin: 08/25/24 16:53 Dose: 4 mg Documented By: CALIXTO Pantoprazole Sodium (Pantoprazole Sodium 40 Mg/10 Ml Vial) 40 mg IVPUSH BID@0630,1630 [facility] Last Admin: 08/28/24 05:28 Dose: 40 mg Documented By: NASRA Ropinirole HCl (Ropinirole Hcl 0.25 Mg Tablet) 0.25 mg PO BID [facility] Last Admin: 08/28/24 07:47 Dose: 0.25 mg Documented By: VIDAL Simethicone (Simethicone 80 Mg Tab.Chew) 80 mg PO QIDWMHS PRN PRN Reason: Gas Sodium Chloride (0.9 % Sodium Chloride Flush 3 Ml Syringe) 3 ml IVFLUSH QSHIFT [facility] Last Admin: 08/28/24 07:47 Dose: 3 ml Documented By: VIDAL Trazodone HCl (Trazodone Hcl 25 Mg Halftab) 25 mg PO BEDTIME MRX1 PRN PRN Reason: Insomnia Labs 08/28/24 06:25 08/27/24 07:24 Labs: Laboratory Results - last 24 hr 08/28/24 06:25 MCV 76.7 L MCH 21.5 L MCHC 28.0 L RDW 24.6 H Plt Count 508 H MPV 9.5 Absolute Nucleated RBC 0.000 Nucleated RBC % (auto) 0.0 Assessment and Plan (1) Acute blood loss anemia: Status: Acute Plan This is an 83-year-old female with a PMH significant for?chronic hypoxemic respiratory failure, COPD on chronic 2 L home O2, paroxysmal AFib on Eliquis, HLD, HTN, venous insufficiency with chronic lower leg edema, pulmonary hypertension, and anxiety who presented to the ED with?SOB, PRADO, and cough x2 weeks found to have acute blood loss anemia likely secondary to UGIB in a pt on anticoagulation. Acute on chronic symptomatic blood loss anemia Follows in the outpatient setting with Hematology for chronic anemia H&H 4.9/18.2 on admission, stool positive for occult blood, concerning for UGIB s/p 2 units of blood; H/H drifting down slowly - follow closely continue IV PPI Hold Eliquis Status post EGD no source of anemia or upper GI bleeding Continue clear liquid diet and GoLYTELY for prep for colonoscopy tomorrow COPD/chronic respiratory failure Not in acute exacerbation Continue home inhalers Continue home 2 L O2 Possible pneumonia. Resolved cxr showing ?pna vs atelectasis. no sepsis No white count, chronically on supplemental oxygen due to underlying COPD. procalcitonin low more likely atelectasis, will d/c abx Paroxysmal AFib Continue diltiazem Hold Eliquis Chronic lower leg edema continue lasix HLD Continue statin mood continue home SSRI and xanax Full Code DVT Prophylaxis: Pneumatic compression due to acute blood loss anemia Quality Stroke Does the patient have a stroke diagnosis?: No VTE Prior VTE?: No VTE Risk Level:: Medical - moderate - high VTE Device Contraindication: N/A - Device Ordered VTE Drug Contraindication: Treatment Not Indicated
[2024-08-28 12:29] LABS: Iron 8 mcg/dL (30-160); Percent Iron Saturation 3 % (15-50); Total Iron Binding Capacity 311 mcg/dL (228-428); Unsaturated Iron Binding 303 ug/dL
--- NOTE | 2024-08-28 12:50 | MHC.CM.PN ---
EMR reviewed and per MD rounds, pt is not medically cleared for discharge due to management of anemia, and chronic hypoxemic respiratory failure, pt had endoscopy today. ?
[2024-08-28] MEDS: ondansetron HCL 4 MG/2 ML VIAL IVPUSH (13:21)
[2024-08-28] MEDS: Acetaminophen 325 MG TABLET 650 MG PO (13:21)
[2024-08-28] MEDS: Iron Sucrose Complex 200 MG/10 ML VIAL IVPUSH (14:32)
[2024-08-28] MEDS: bisacodyL 5 MG TABLET.DR 10 MG PO (14:34)
[2024-08-28] MEDS: PEG 3350/Na Sulf,Bicarb,Cl/KCL 4,000 ML SOLN.RECON 4000 ML PO (18:12)
[2024-08-28] MEDS: Gabapentin 300 MG CAPSULE PO (20:48)
[2024-08-28] MEDS: Furosemide 40 MG TABLET PO (20:53)
[2024-08-29] VITALS (8 sets, daily range): BP systolic 106–147; BP diastolic 48–64; PULSE 64–78; RESP 16–18; TEMP 36.2–36.9; O2SAT 89–96
[2024-08-29] MEDS: guaiFEN/Codeine SF 200/20/10ML 10 ML LIQUID PO ×3 (02:37→17:59)
[2024-08-29] MEDS: Pantoprazole Sodium 40 MG/10 ML VIAL IVPUSH ×2 (05:29→15:12)
[2024-08-29] MEDS: rOPINIRole HCL 0.25 MG TABLET PO ×2 (07:34→20:06)
[2024-08-29 07:35] LABS: Hematocrit 24.7 % (37.0-47.0); Hemoglobin 7.1 g/dl (12.0-16.0); Mean Corpuscular HGB Conc 28.7 g/dl (31.0-35.0); Mean Corpuscular Hemoglobin 21.8 pg (27.0-33.0); Mean Corpuscular Volume 75.8 fL (80.0-98.0); Mean Platelet Volume 9.2 fL (9.4-12.3); Platelet Count 423 X10*3/uL (160-400); Red Blood Count 3.26 X10*6/uL (4.20-5.50); Red Cell Distribution Width 24.1 % (11.0-16.0); White Blood Count 6.8 X10*3/uL (4.8-10.8)
[2024-08-29] MEDS: Iron Sucrose Complex 200 MG/10 ML VIAL IVPUSH (07:35)
[2024-08-29] MEDS: Fluticasone Propionate Nasal 16 GM SPRAY 1 SPRAY NOSTRIL-B (07:35)
[2024-08-29] MEDS: dilTIAZem HCL CD 240 MG CAP.ER.DEG PO (07:35)
[2024-08-29] MEDS: Escitalopram Oxalate 20 MG TABLET PO (07:35)
[2024-08-29] MEDS: Furosemide 40 MG TABLET PO (07:35)
[2024-08-29] MEDS: Montelukast Sodium 10 MG TABLET PO (07:35)
[2024-08-29] MEDS: 0.9 % Sodium Chloride Flush 3 ML SYRINGE IVFLUSH ×3 (07:36→20:07)
[2024-08-29] MEDS: Fluticasone/Umeclidinium/Vilanterol 100/62.5/25 BLST.W.DEV 1 PUFF INHALE (07:50)
--- NOTE | 2024-08-29 08:51 | P.PNIM_ITS ---
Subjective Subjective Date of Service: 08/29/24 Interval History: seen and examined this morning follow up for gi bleeding new hypoxia likely from fluid overload Review of Systems Review of Systems: Yes all other systems are reviewed and are negative Constitutional Constitutional: Denies chills and Denies fever(s) Cardiovascular Cardiovascular: Denies chest pain and Denies dyspnea Respiratory Respiratory: Reports cough and Denies dyspnea Gastrointestinal Gastrointestinal: Denies abdominal pain, Denies nausea and Denies vomiting Physical Exam 2 Vital Signs: Vital Signs: Last Vital Signs Temp 97.9 F 08/29/24 07:30 Pulse 75 08/29/24 07:58 Resp 18 08/29/24 07:58 BP 147/64 H 08/29/24 07:30 Pulse Ox 89 L 08/29/24 07:30 O2 Del Method Nasal Cannula 08/29/24 07:30 O2 Flow Rate 2 08/29/24 07:30 Oxygen Flow Rate 2 08/29/24 07:15 BMI result Body Mass Index 26.8 Appearing in no acute distress lung sounds rales heart regular rate rhythm, clear S1, S2 positive bowel sounds, abdomen is soft, nontender neuro patient is alert x3, no focal deficits Objective Data Active Medications Acetaminophen (Acetaminophen 325 Mg Tablet) 650 mg PO Q6H PRN PRN Reason: Pain, Mild 1-3,fever,headache Last Admin: 08/28/24 13:21 Dose: 650 mg Documented By: VIDAL Albuterol Sulfate (Albuterol Sulfate (0.083%) 2.5 Mg/3 Ml Vial.Neb) 2.5 mg INHALE RQ4H PRN PRN Reason: Wheezing Last Admin: 08/28/24 05:49 Dose: 2.5 mg Documented By: RUBEN Alprazolam (Alprazolam 0.25 Mg Tablet) 0.25 mg PO DAILY PRN PRN Reason: Anxiety Diltiazem HCl (Diltiazem Hcl Cd 240 Mg Cap.Er.Deg) 240 mg PO DAILY [facility]; Protocol Last Admin: 08/29/24 07:35 Dose: 240 mg Documented By: VIDAL Escitalopram Oxalate (Escitalopram Oxalate 20 Mg Tablet) 20 mg PO DAILY [facility] Last Admin: 08/29/24 07:35 Dose: 20 mg Documented By: VIDAL Fluticasone Propionate (Fluticasone Propionate Nasal 16 Gm [place]) 1 spray NOSTRIL-B DAILY PRN PRN Reason: allergies Last Admin: 08/29/24 07:35 Dose: 1 spray Documented By: VIDAL Fluticasone/Umeclidinium/Vilanterol (Fluticasone/Umeclidinium/Vilanterol 100/62.5/25 Blst.W.Dev) 1 puff INHALE RDAILY [facility] Last Admin: 08/29/24 07:50 Dose: 1 puff Documented By: SHAYE Furosemide (Furosemide 40 Mg Tablet) 40 mg PO BID [facility]; Protocol Last Admin: 08/29/24 07:35 Dose: 40 mg Documented By: VIDAL Gabapentin (Gabapentin 300 Mg Capsule) 300 mg PO BEDTIME [facility] Last Admin: 08/28/24 20:48 Dose: 300 mg Documented By: NASRA Guaifenesin/Codeine Phosphate (Guaifen/Codeine Sf 200/20/10ml 10 Ml Liquid) 10 ml PO Q6H PRN PRN Reason: cough Last Admin: 08/29/24 07:39 Dose: 10 ml Documented By: VIDAL Lactated Ringer's (Lr) 1,000 mls @ 80 mls/hr IVCONT .[id number] [facility] Last Admin: 08/28/24 21:36 Dose: 80 mls/hr Documented By: NASRA Ipratropium [place] (Ipratropium [place] Chan 0.06 % 15 Ml [place]) 2 spray NOSTRIL-B TID [facility] Last Admin: 08/28/24 20:52 Dose: Not Given Documented By: NASRA Non-Admin Reason: Patient Refused Iron Sucrose (Iron Sucrose Complex 200 Mg/10 Ml Vial) 200 mg IVPUSH DAILY [facility] Last Admin: 08/29/24 07:35 Dose: 200 mg Documented By: VIDAL Montelukast Sodium (Montelukast Sodium 10 Mg Tablet) 10 mg PO DAILY [facility] Last Admin: 08/29/24 07:35 Dose: 10 mg Documented By: VIDAL Naloxone HCl (Naloxone Hcl 0.4 Mg/Ml Vial) 0.04 mg IVPUSH Q5M PRN PRN Reason: Excessive sedation or RR < 8 Ondansetron HCl (Ondansetron Hcl 4 Mg/2 Ml Vial) 4 mg IVPUSH Q8H PRN PRN Reason: Nausea and Vomiting Last Admin: 08/28/24 13:21 Dose: 4 mg Documented By: VIDAL Pantoprazole Sodium (Pantoprazole Sodium 40 Mg/10 Ml Vial) 40 mg IVPUSH BID@0630,1630 [facility] Last Admin: 08/29/24 05:29 Dose: 40 mg Documented By: NASRA Ropinirole HCl (Ropinirole Hcl 0.25 Mg Tablet) 0.25 mg PO BID [facility] Last Admin: 08/29/24 07:34 Dose: 0.25 mg Documented By: VIDAL Simethicone (Simethicone 80 Mg Tab.Chew) 80 mg PO QIDWMHS PRN PRN Reason: Gas Sodium Chloride (0.9 % Sodium Chloride Flush 3 Ml Syringe) 3 ml IVFLUSH QSHIFT [facility] Last Admin: 08/29/24 07:36 Dose: 3 ml Documented By: VIDAL Trazodone HCl (Trazodone Hcl 25 Mg Halftab) 25 mg PO BEDTIME MRX1 PRN PRN Reason: Insomnia Labs 08/29/24 07:15 08/27/24 07:24 Labs: Laboratory Results - last 24 hr 08/28/24 08/29/24 11:56 07:15 MCV 75.8 L MCH 21.8 L MCHC 28.7 L RDW 24.1 H Plt Count 423 H MPV 9.2 L Absolute Nucleated RBC 0.000 Nucleated RBC % (auto) 0.0 Iron 8 L TIBC 311 % Saturation 3 L Unsat Iron Binding 303 Assessment and Plan (1) Acute blood loss anemia: Status: Acute Plan This is an 83-year-old female with a PMH significant for?chronic hypoxemic respiratory failure, COPD on chronic 2 L home O2, paroxysmal AFib on Eliquis, HLD, HTN, venous insufficiency with chronic lower leg edema, pulmonary hypertension, and anxiety who presented to the ED with?SOB, PRADO, and cough x2 weeks found to have acute blood loss anemia likely secondary to UGIB in a pt on anticoagulation. Acute hypoxia from fluid overload likely from IV fluids IV lasix 40 x1 BNP and CXR Acute on chronic symptomatic blood loss anemia Follows in the outpatient setting with Hematology for chronic anemia H&H 4.9/18.2 on admission, stool positive for occult blood, concerning for UGIB s/p 2 units of blood; H/H drifting down slowly - follow closely continue IV PPI Hold Eliquis Status post EGD no source of anemia or upper GI bleeding Continue clear liquid diet and GoLYTELY for prep for colonoscopy, hold today for fluid overload Acute on chronic iron def anemia Iron 8 IV iron x3 days COPD/chronic respiratory failure Not in acute exacerbation Continue home inhalers Continue home 2 L O2 Possible pneumonia. Resolved cxr showing ?pna vs atelectasis. no sepsis No white count, chronically on supplemental oxygen due to underlying COPD. procalcitonin low more likely atelectasis, will d/c abx Paroxysmal AFib Continue diltiazem Hold Eliquis Chronic lower leg edema continue lasix HLD Continue statin mood continue home SSRI and xanax Full Code DVT Prophylaxis: Pneumatic compression due to acute blood loss anemia Quality Stroke Does the patient have a stroke diagnosis?: No VTE Prior VTE?: No VTE Risk Level:: Medical - moderate - high VTE Device Contraindication: N/A - Device Ordered VTE Drug Contraindication: Treatment Not Indicated
[2024-08-29] MEDS: Furosemide 40 MG/4 ML VIAL IVPUSH ×2 (09:03→17:58)
--- NOTE | 2024-08-29 09:14 | HO.POSTANES ---
Post Anesthesia Evaluation Post Anesthesia Evaluation Date of Service: 08/29/24 Vital Signs: Vital Signs Temp Pulse Resp BP Pulse Ox O2 Del Method O2 Flow Rate 08/29/24 07:58 75 18 08/29/24 07:30 97.9 F 76 18 147/64 H 89 L Nasal Cannula 2 08/29/24 07:15 96 Nasal Cannula 08/29/24 03:13 98.1 F 78 18 122/58 L 94 Nasal Cannula 2 08/28/24 23:33 97.4 F 64 18 121/71 92 Nasal Cannula 2 Anesthesia: Monitored Mental Status: Awake Pain Control: Satisfactory Nausea/Vomiting: None Hydration: Adequate Anesthesia-Related Issues: No Anes. Related Issues
[2024-08-29 09:51] LABS: B Type Natriuretic Peptide 623 pg/mL (<100)
--- NOTE | 2024-08-29 15:07 | P.CDIM_ITS ---
PROVIDER RESPONSE TEXT: To clarify, the appropriate diagnosis supported by the clinical indicators: Other (explain): unknown etiology QUERY TEXT: PHYSICIAN'S DOCUMENTATION REQUEST Date of Query: 08/29/2024 08:26 AM EST Patient Name: Tanya Joya Admit Date: 08/25/2024 Dear Tiffanie Brito SENIOR LEAD DEVELOPER, A review of the medical record indicates additional documentation may be needed. Please review below and update the documentation accordingly. Clinical Indicators: Progress note within the written Plan: 08/28/24 - Acute on chronic symptomatic blood loss anemia. Follows in the outpatient setting with Hematology for chronic anemia. S/P 2 units of blood, H/H drifting down slowly - stool positive for occult blood, concerning for UGIB . Paroxysmal Atrial fibrillation on Eliquis. Hold Eliquis Based on the above, is there a diagnosis that correlates with these indicators: Hemorrhagic disorder due to anticoagulant (Eliquis) possible, probable, suspected Other etiology please specify if known Other (explain) Clinically unable to determine (explain) Thank you, Zaida Curtis, CCS, CDIS Use of terms such as suspected, likely, concern for, or probable (associated with a specific diagnosi s that is being evaluated, monitored, or treated as if it exists) are acceptable and can be coded in the inpatient se tting, when documented at the time of discharge. Please use your independent medical judgment in providing your response. THIS QUERY IS PART OF THE PERMANENT MEDICAL RECORD
--- NOTE | 2024-08-29 15:07 | P.CDIM_ITS ---
PROVIDER RESPONSE TEXT: To clarify, the appropriate diagnosis supported by the clinical indicators: Other (explain): none QUERY TEXT: PHYSICIAN'S DOCUMENTATION REQUEST Date of Query: 08/29/2024 11:23 AM EST Patient Name: Tanya Joya Admit Date: 08/25/2024 Dear Tiffanie Brito PROVINCE ARCHIVIST, A review of the medical record indicates additional documentation may be needed. Please review below and update the documentation accordingly. Clinical Indicators: Flexible Transoral Upper Gastrointestinal Endoscopy with biopsies 08/28 - Post-op diagnosis: Gastritis , gastric polys, duodenal nodule Stomach - Moderate gastric antral erythema - biopsies were obtained from the antrum. Clarify which of the following accurately represents the acuity of the Gastritis: Possible options might include: Acute Gastritis Chronic Gastritis Other specified Other (explain) Clinically unable to determine (explain) Thank you, Zaida Curtis, CCS, CDIS Use of terms such as suspected, likely, concern for, or probable (associated with a specific diagnosi s that is being evaluated, monitored, or treated as if it exists) are acceptable and can be coded in the inpatient se tting, when documented at the time of discharge. Please use your independent medical judgment in providing your response. THIS QUERY IS PART OF THE PERMANENT MEDICAL RECORD
[2024-08-29] MEDS: Gabapentin 300 MG CAPSULE PO (20:06)
[2024-08-30] VITALS (13 sets, daily range): BP systolic 103–165; BP diastolic 52–76; PULSE 57–79; RESP 16–20; TEMP 36.1–37.1; O2SAT 92–98
[2024-08-30] MEDS: guaiFEN/Codeine SF 200/20/10ML 10 ML LIQUID PO ×2 (00:28→14:35)
[2024-08-30] MEDS: Acetaminophen 325 MG TABLET 650 MG PO ×2 (02:50→22:24)
[2024-08-30] MEDS: Pantoprazole Sodium 40 MG/10 ML VIAL IVPUSH ×2 (06:00→17:02)
[2024-08-30 07:16] LABS: Hematocrit 24.1 % (37.0-47.0); Mean Corpuscular HGB Conc 27.8 g/dl (31.0-35.0); Mean Corpuscular Hemoglobin 21.3 pg (27.0-33.0); Mean Corpuscular Volume 76.8 fL (80.0-98.0); Mean Platelet Volume 9.7 fL (9.4-12.3); Platelet Count 394 X10*3/uL (160-400); Red Blood Count 3.14 X10*6/uL (4.20-5.50); White Blood Count 8.1 X10*3/uL (4.8-10.8)
[2024-08-30 07:31] LABS: Hemoglobin 6.7 g/dl (12.0-16.0)
[2024-08-30] MEDS: Fluticasone/Umeclidinium/Vilanterol 100/62.5/25 BLST.W.DEV 1 PUFF INHALE (08:00)
[2024-08-30] MEDS: Furosemide 40 MG/4 ML VIAL IVPUSH (09:44)
[2024-08-30] MEDS: Iron Sucrose Complex 200 MG/10 ML VIAL IVPUSH (09:44)
[2024-08-30] MEDS: dilTIAZem HCL CD 240 MG CAP.ER.DEG PO (09:45)
[2024-08-30] MEDS: Montelukast Sodium 10 MG TABLET PO (09:45)
[2024-08-30] MEDS: rOPINIRole HCL 0.25 MG TABLET PO (09:46)
[2024-08-30] MEDS: Escitalopram Oxalate 20 MG TABLET PO (09:47)
[2024-08-30] MEDS: Fluticasone Propionate Nasal 16 GM SPRAY 1 SPRAY NOSTRIL-B (09:51)
--- NOTE | 2024-08-30 10:39 | MHC.CM.PN ---
Per ROUNDS discussion, Patient is not yet medically cleared for dc (receiving blood today, Colonoscopy tomorrow); Patient may benefit from a PT Eval to assist with disposition. CM will follow.
--- NOTE | 2024-08-30 11:25 | HO.PM.IMPN ---
Subjective Subjective Date of Service: 08/30/24 Interval History: seen and examined this morning follow up for gi bleeding new hypoxia likely from fluid overload but improved Review of Systems Review of Systems: Yes all other systems are reviewed and are negative Constitutional Constitutional: Denies chills and Denies fever(s) Cardiovascular Cardiovascular: Denies chest pain and Denies dyspnea Respiratory Respiratory: Reports cough and Denies dyspnea Gastrointestinal Gastrointestinal: Denies abdominal pain, Denies nausea and Denies vomiting Physical Exam Vital Signs: Vital Signs: Last Vital Signs Temp 97.4 F 08/30/24 10:48 Pulse 65 08/30/24 10:48 Resp 20 08/30/24 10:48 BP 103/55 L 08/30/24 10:48 Pulse Ox 96 08/30/24 07:08 O2 Del Method Nasal Cannula 08/30/24 07:08 O2 Flow Rate 3 08/30/24 07:08 Oxygen Flow Rate 3 08/30/24 07:07 BMI result Body Mass Index 26.8 Appearing in no acute distress lung sounds are clear to auscultation heart regular rate rhythm, clear S1, S2 positive bowel sounds, abdomen is soft, nontender neuro patient is alert x3, no focal deficits Objective Data Active Medications Acetaminophen (Acetaminophen 325 Mg Tablet) 650 mg PO Q6H PRN PRN Reason: Pain, Mild 1-3,fever,headache Last Admin: 08/30/24 02:50 Dose: 650 mg Documented By: NASRA Albuterol Sulfate (Albuterol Sulfate (0.083%) 2.5 Mg/3 Ml Vial.Neb) 2.5 mg INHALE RQ4H PRN PRN Reason: Wheezing Last Admin: 08/28/24 05:49 Dose: 2.5 mg Documented By: RUBEN Diltiazem HCl (Diltiazem Hcl Cd 240 Mg Cap.Er.Deg) 240 mg PO DAILY [facility]; Protocol Last Admin: 08/30/24 09:45 Dose: 240 mg Documented By: GENEVA Escitalopram Oxalate (Escitalopram Oxalate 20 Mg Tablet) 20 mg PO DAILY [facility] Last Admin: 08/30/24 09:47 Dose: 20 mg Documented By: GENEVA Fluticasone Propionate (Fluticasone Propionate Nasal [address] [place]) 1 spray NOSTRIL-B DAILY PRN PRN Reason: allergies Last Admin: 08/30/24 09:51 Dose: 1 spray Documented By: GENEVA Fluticasone/Umeclidinium/Vilanterol (Fluticasone/Umeclidinium/Vilanterol 100/62.5/25 Blst.W.Dev) 1 puff INHALE RDAILY [facility] Last Admin: 08/30/24 08:00 Dose: 1 puff Documented By: SHAYE Furosemide (Furosemide 40 Mg/4 Ml Vial) 40 mg IVPUSH BID@0900,1800 [facility]; Protocol Last Admin: 08/30/24 09:44 Dose: 40 mg Documented By: GENEVA Gabapentin (Gabapentin 300 Mg Capsule) 300 mg PO BEDTIME [facility] Last Admin: 08/29/24 20:06 Dose: 300 mg Documented By: NASRA Guaifenesin/Codeine Phosphate (Guaifen/Codeine Sf 200/20/10ml 10 Ml Liquid) 10 ml PO Q6H PRN PRN Reason: cough Last Admin: 08/30/24 00:28 Dose: 10 ml Documented By: NASRA Ipratropium [place] (Ipratropium [place] Chan 0.06 % [address] [place]) 2 spray NOSTRIL-B TID [facility] Last Admin: 08/30/24 10:38 Dose: Not Given Documented By: GENEVA Non-Admin Reason: Med Not Available Iron Sucrose (Iron Sucrose Complex 200 Mg/10 Ml Vial) 200 mg IVPUSH DAILY [facility] Last Admin: 08/30/24 09:44 Dose: 200 mg Documented By: GENEVA Montelukast Sodium (Montelukast Sodium 10 Mg Tablet) 10 mg PO DAILY [facility] Last Admin: 08/30/24 09:45 Dose: 10 mg Documented By: GENEVA Naloxone HCl (Naloxone Hcl 0.4 Mg/Ml Vial) 0.04 mg IVPUSH Q5M PRN PRN Reason: Excessive sedation or RR < 8 Ondansetron HCl (Ondansetron Hcl 4 Mg/2 Ml Vial) 4 mg IVPUSH Q8H PRN PRN Reason: Nausea and Vomiting Last Admin: 08/28/24 13:21 Dose: 4 mg Documented By: VIDAL Pantoprazole Sodium (Pantoprazole Sodium 40 Mg/10 Ml Vial) 40 mg IVPUSH BID@0630,1630 [facility] Last Admin: 08/30/24 06:00 Dose: 40 mg Documented By: NASRA Ropinirole HCl (Ropinirole Hcl 0.25 Mg Tablet) 0.25 mg PO BID [facility] Last Admin: 08/30/24 09:46 Dose: 0.25 mg Documented By: GENEVA Simethicone (Simethicone 80 Mg Tab.Chew) 80 mg PO QIDWMHS PRN PRN Reason: Gas Sodium Chloride (0.9 % Sodium Chloride Flush 3 Ml Syringe) 3 ml IVFLUSH QSHIFT [facility] Last Admin: 08/30/24 10:38 Dose: Not Given Documented By: GENEVA Non-Admin Reason: Blood Running Trazodone HCl (Trazodone Hcl 25 Mg Halftab) 25 mg PO BEDTIME MRX1 PRN PRN Reason: Insomnia Labs 08/30/24 06:56 08/27/24 07:24 Labs: Laboratory Results - last 24 hr 08/30/24 08/30/24 06:56 08:05 MCV 76.8 L MCH 21.3 L MCHC 27.8 L RDW 25.0 H Plt Count 394 MPV 9.7 Absolute Nucleated RBC 0.000 Nucleated RBC % (auto) 0.0 Blood Type O Positive Antibody Screen NEGATIVE Crossmatch See Detail Assessment and Plan (1) Acute blood loss anemia: Status: Acute Plan This is an 83-year-old female with a PMH significant for?chronic hypoxemic respiratory failure, COPD on chronic 2 L home O2, paroxysmal AFib on Eliquis, HLD, HTN, venous insufficiency with chronic lower leg edema, pulmonary hypertension, and anxiety who presented to the ED with?SOB, PRADO, and cough x2 weeks found to have acute blood loss anemia likely secondary to UGIB in a pt on anticoagulation. Acute hypoxia from fluid overload. Resolved likely from IV fluids IV lasix stopped BNP 623 CXR with pulm edema Acute on chronic symptomatic blood loss anemia Follows in the outpatient setting with Hematology for chronic anemia H&H 4.9/18.2 on admission, stool positive for occult blood, concerning for UGIB continue IV PPI Hold Eliquis Status post EGD no source of anemia or upper GI bleeding Continue clear liquid diet and GoLYTELY for prep for colonoscopy tomorrow s/p 2 units of blood, 2 more units ordered today after HH noted to be 6.7/24.1 Acute on chronic iron def anemia Iron 8 IV iron x3 days COPD/chronic respiratory failure Not in acute exacerbation Continue home inhalers Continue home 2 L O2 Possible pneumonia. Resolved cxr showing ?pna vs atelectasis. no sepsis No white count, chronically on supplemental oxygen due to underlying COPD. procalcitonin low more likely atelectasis, will d/c abx Paroxysmal AFib Continue diltiazem Hold Eliquis Chronic lower leg edema continue lasix HLD Continue statin mood continue home SSRI and xanax Full Code DVT Prophylaxis: Pneumatic compression due to acute blood loss anemia Quality Stroke Does the patient have a stroke diagnosis?: No VTE Prior VTE?: No VTE Risk Level:: Medical - moderate - high VTE Device Contraindication: N/A - Device Ordered VTE Drug Contraindication: Treatment Not Indicated
[2024-08-30 15:22] LABS: B Type Natriuretic Peptide 481 pg/mL (<100)
[2024-08-30] MEDS: PEG 3350/Na Sulf,Bicarb,Cl/KCL 4,000 ML SOLN.RECON 4000 ML PO (17:02)
[2024-08-30] MEDS: 0.9 % Sodium Chloride Flush 3 ML SYRINGE IVFLUSH ×2 (17:05→21:15)
[2024-08-31] VITALS (10 sets, daily range): BP systolic 115–164; BP diastolic 49–77; PULSE 63–92; RESP 14–20; TEMP 36.2–37.2; O2SAT 92–99
[2024-08-31] MEDS: Pantoprazole Sodium 40 MG/10 ML VIAL IVPUSH ×2 (05:14→17:28)
[2024-08-31] MEDS: ondansetron HCL 4 MG/2 ML VIAL IVPUSH (05:14)
--- NOTE | 2024-08-31 06:25 | PC.NURSE ---
Handover received from prior RN at 1850 and acquired care of pt. Pt. A and O x4. Sitting up in recliner and drinking Golytely for Colonoscopy for tomorrow. Pt. drank 1/2 of Golytely jug by 2330. Pt. had liquid/watery brown BM at 2215. Pt. did not want evening meds as tired and still having to use commde. At 00:15 pt. states I can't drink any more of that drink . Overnight pt. had liquid green/brown BM Diluted pea soup consistency and at 0515 pt. medicated with zofran per pt. request and then had large all watery green BM at that time. Pt. back to bed. Slight nausea.
[2024-08-31 06:43] LABS: Hematocrit 31.7 % (37.0-47.0); Hemoglobin 9.5 g/dl (12.0-16.0); Mean Corpuscular Hemoglobin 23.6 pg (27.0-33.0); Mean Corpuscular Volume 78.7 fL (80.0-98.0); Mean Platelet Volume 9.5 fL (9.4-12.3); Platelet Count 377 X10*3/uL (160-400); Red Blood Count 4.03 X10*6/uL (4.20-5.50); Red Cell Distribution Width 24.7 % (11.0-16.0); White Blood Count 6.9 X10*3/uL (4.8-10.8)
[2024-08-31] MEDS: 0.9 % Sodium Chloride Flush 3 ML SYRINGE IVFLUSH ×2 (10:18→20:52)
--- NOTE | 2024-08-31 12:25 | MHC.SHP ---
Pre-Procedural Eval Section A - 24 Hr Update-Section A only Date of Service: 08/31/24 The patient is an INPATIENT: Yes The patient has been examined within 24 hours of the surgical procedure. The History & Physical has been completed within 30 days and I have reviewed it.: Yes Section B - Complete if H&P > 30 days Chief Complaint: anemia Allergies: Allergies Allergy/AdvReac Type Severity Reaction Status Date / Time No Known Allergies Allergy Verified 08/25/24 03:57 Plan Diagnosis/Plan: Unchanged I have reviewed the history and physical and performed a pertinent physical examination on my patient. No changes have occurred unless specified. Time Spent With Patient Time: Total time managing care of this patient today ____ minutes.
--- NOTE | 2024-08-31 12:37 | HO.ANESPROP2 ---
HPI - Anesthesia Eval Consult details Narrative: colon PMFSH Active Problems Active Problems: All Active Problems Pulmonary hypertension, pre-operative cardiovascular examination (Acute) Supplemental oxygen dependent (Acute) Acute blood loss anemia (Acute) Abdominal pain (Acute) Chest pain, exertional (Acute) Microcytic anemia (Acute) Microcytic hypochromic anemia (Acute) Fatigue (Acute) Diastolic dysfunction (Acute) Abnormal EKG (Acute) Abnormal CXR (Acute) Hospital discharge follow-up (Acute) COPD (chronic obstructive pulmonary disease) (Acute) Hypoxia (Acute) Bronchopneumonia (Acute) Pneumonia (Acute) Lung nodule (Acute) Leg edema (Acute) Pleural effusion (Acute) Pulmonary hypertension (Acute) Mitral annular calcification (Acute) Aortic valve calcification (Acute) Cough (Acute) Sinusitis (Acute) Sepsis (Acute) Acute pneumonia (Acute) Acute exacerbation of chronic obstructive airways disease (Acute) Adenoviral bronchitis (Acute) Pneumonia (Acute) Past Medical History Medical History COPD (chronic obstructive pulmonary disease) PAF (paroxysmal atrial fibrillation) Atrial fibrillation with rapid ventricular response Lung nodule Pleural effusion Pulmonary hypertension Mitral annular calcification Aortic valve calcification Cough Sinusitis Chronic respiratory failure Pneumonia Family History Family History Brother Myocardial infarction Father Stroke Maternal Grandmother Bone cancer Family history of problems with anesthesia: No Surgical History Surgical History No pertinent past surgical history History of Problems with Anesthesia: No Social History Social History Household Members: Children Household Members Other:: Daughter and family Housing: House Are you a primary care administrative tech to a significant other at home: No Do you presently have visiting nurse or other home services: No Alcohol intake: never Patient Tobacco Use Status: Former Tobacco user Tobacco use type: Cigarette e-Cigarette/Vaping Use: Never Used Second Hand Smoke Exposure: No Advance Directives Date on File: 06/21/23 service: No Current occupational status: retired [employer] Allergies Allergy/AdvReac Type Severity Reaction Status Date / Time No Known Allergies Allergy Verified 08/25/24 03:57 Active Medications: Current Medications Acetaminophen (Acetaminophen 325 Mg Tablet) 650 mg PO Q6H PRN PRN Reason: Pain, Mild 1-3,fever,headache Last Admin: 08/30/24 22:24 Dose: 650 mg Albuterol Sulfate (Albuterol Sulfate (0.083%) 2.5 Mg/3 Ml Vial.Neb) 2.5 mg INHALE RQ4H PRN PRN Reason: Wheezing Last Admin: 08/28/24 05:49 Dose: 2.5 mg Diltiazem HCl (Diltiazem Hcl Cd 240 Mg Cap.Er.Deg) 240 mg PO DAILY [facility]; Protocol Last Admin: 08/31/24 10:27 Dose: Not Given Escitalopram Oxalate (Escitalopram Oxalate 20 Mg Tablet) 20 mg PO DAILY [facility] Last Admin: 08/31/24 10:27 Dose: Not Given Fluticasone Propionate (Fluticasone Propionate Nasal 16 Gm [place]) 1 spray NOSTRIL-B DAILY PRN PRN Reason: allergies Last Admin: 08/30/24 09:51 Dose: 1 spray Fluticasone/Umeclidinium/Vilanterol (Fluticasone/Umeclidinium/Vilanterol 100/62.5/25 Blst.W.Dev) 1 puff INHALE RDAILY [facility] Last Admin: 08/31/24 08:02 Dose: Not Given Gabapentin (Gabapentin 300 Mg Capsule) 300 mg PO BEDTIME [facility] Last Admin: 08/31/24 01:09 Dose: Not Given Guaifenesin/Codeine Phosphate (Guaifen/Codeine Sf 200/20/10ml 10 Ml Liquid) 10 ml PO Q6H PRN PRN Reason: cough Last Admin: 08/30/24 14:35 Dose: 10 ml Ipratropium [place] (Ipratropium [place] Chan 0.06 % 15 Ml [place]) 2 spray NOSTRIL-B TID [facility] Last Admin: 08/31/24 10:27 Dose: Not Given Montelukast Sodium (Montelukast Sodium 10 Mg Tablet) 10 mg PO DAILY [facility] Last Admin: 08/31/24 10:28 Dose: Not Given Naloxone HCl (Naloxone Hcl 0.4 Mg/Ml Vial) 0.04 mg IVPUSH Q5M PRN PRN Reason: Excessive sedation or RR < 8 Ondansetron HCl (Ondansetron Hcl 4 Mg/2 Ml Vial) 4 mg IVPUSH Q8H PRN PRN Reason: Nausea and Vomiting Last Admin: 08/31/24 05:14 Dose: 4 mg Pantoprazole Sodium (Pantoprazole Sodium 40 Mg/10 Ml Vial) 40 mg IVPUSH BID@0630,1630 [facility] Last Admin: 08/31/24 05:14 Dose: 40 mg Ropinirole HCl (Ropinirole Hcl 0.25 Mg Tablet) 0.25 mg PO BID [facility] Last Admin: 08/31/24 10:28 Dose: Not Given Simethicone (Simethicone 80 Mg Tab.Chew) 80 mg PO QIDWMHS PRN PRN Reason: Gas Sodium Chloride (0.9 % Sodium Chloride Flush 3 Ml Syringe) 3 ml IVFLUSH QSHIFT [facility] Last Admin: 08/31/24 10:18 Dose: 3 ml Trazodone HCl (Trazodone Hcl 25 Mg Halftab) 25 mg PO BEDTIME MRX1 PRN PRN Reason: Insomnia Home Medications ?Medication ?Instructions ?Recorded ?Confirmed ?Last Taken ?Type albuterol sulfate 2.5 mg/3 mL 2.5 mg inhalation Q4H PRN Wheezing 03/07/21 08/25/24 08/24/24 History (0.083 %) solution for nebulization famotidine 20 mg tablet 20 mg PO DAILY@0800 03/07/21 08/25/24 08/24/24 History pravastatin 40 mg tablet 40 mg PO DAILY@0800 03/07/21 08/25/24 08/24/24 History turmeric root extract 500 mg 500 mg PO DAILY@0800 09/19/21 08/25/24 08/24/24 History capsule Oxygen Home Use 09/22/22 04/03/24 Unknown History nebulizers 09/22/22 04/03/24 Unknown History alprazolam 0.25 mg tablet 0.25 mg PO DAILY PRN Anxiety 08/26/23 08/25/24 08/24/24 History apixaban 5 mg tablet (Eliquis) 5 mg PO BID 08/26/23 08/25/24 08/24/24 History citalopram 20 mg tablet 40 mg PO DAILY 08/26/23 08/25/24 08/24/24 History fluticasone propionate 50 50 mcg intranasal DAILY PRN 08/26/23 08/25/24 08/24/24 History mcg/actuation nasal allergies spray,suspension (Flonase Allergy Relief) furosemide 40 mg tablet 40 mg PO BID 08/26/23 08/25/24 08/24/24 History ropinirole 0.25 mg tablet 0.25 mg PO BID 08/26/23 08/25/24 08/24/24 History trazodone 50 mg tablet 50 mg PO BEDTIME PRN sleep 08/14/24 08/25/24 08/24/24 History albuterol sulfate 90 mcg/actuation 2 puff inhalation Q4H PRN 08/25/24 08/25/24 08/24/24 History aerosol inhaler shortness of breath or wheezing biotin 10,000 mcg chewable tablet 10,000 mcg PO DAILY 08/25/24 08/25/24 08/24/24 History (Hair, Skin and Nails (biotin)) calcium 600 mg (as 1 tab PO DAILY 08/25/24 08/25/24 08/24/24 History carbonate)-vitamin D3 5 mcg (200 unit) tablet fluticasone fur. 100 mcg-umeclid 1 inh PO DAILY 08/25/24 08/25/24 08/24/24 History 62.5 mcg-vilant 25 mcg inhalat.powder (Trelegy Ellipta) psyllium husk 0.4 gram capsule 0.4 g PO DAILY 08/25/24 08/25/24 08/24/24 History (Metamucil) Exam Height,Weight and Vital Signs: Height 5 ft 5 in Weight 73.028 kg Last Vital Signs Temp 98.7 F 08/31/24 11:40 Pulse 70 08/31/24 11:40 Resp 14 08/31/24 11:40 BP 147/54 H 08/31/24 11:40 Pulse Ox 97 08/31/24 11:40 O2 Del Method Room Air 08/31/24 11:40 O2 Flow Rate 2 08/31/24 11:08 Oxygen Flow Rate 3 08/31/24 07:07 Pertinent Lab Results Pertinent Lab Results: Laboratory Tests 08/25/24 08/25/24 08/25/24 04:10 04:14 04:34 WBC 8.9 RBC 2.63 L D Hgb 4.9 L* D Hct 18.2 L* D MCV 69.2 L MCH 18.6 L MCHC 26.9 L RDW 20.5 H Plt Count 647 H D MPV 8.6 L Immature Gran % (Auto) 0.4 Neut % (Auto) 73.1 H Lymph % (Auto) 14.3 L [place] % (Auto) 11.1 H Eos % (Auto) 0.3 Baso % (Auto) 0.8 Lymph # (Auto) 1.3 [place] # (Auto) 1.0 Eos # (Auto) 0.0 Baso # (Auto) 0.1 Abs Immat Gran (auto) 0.04 H Absolute Neuts (auto) 6.5 Absolute Nucleated RBC 0.030 H Nucleated RBC % (auto) 0.3 H Smear Path Review SEE NOTE Sodium 138 Potassium 3.5 Chloride 96 Carbon Dioxide 34 H Anion Gap 12 BUN 10 Creatinine 0.63 Estim Creat Clear Calc 70.0 Estimated GFR > 60 Random Glucose 135 H Calcium 8.9 Iron TIBC % Saturation Unsat Iron Binding Total Bilirubin 0.3 AST 26 ALT 10 Alkaline Phosphatase 81 Troponin I High Sens 18.9 H B-Natriuretic Peptide 321 H Total Protein 7.2 Albumin 3.4 L Procalcitonin Stool Occult Blood Influenza Type A (PCR) NEGATIVE Influenza Type B (PCR) NEGATIVE RSV RNA Qual (PCR) NEGATIVE SARS-CoV-2 RNA (RT-PCR) NEGATIVE Blood Type O Positive Antibody Screen NEGATIVE Crossmatch See Detail 08/25/24 08/25/24 08/25/24 05:11 08:33 16:08 WBC RBC Hgb 7.8 L D Hct 26.3 L D MCV MCH MCHC RDW Plt Count MPV Immature Gran % (Auto) Neut % (Auto) Lymph % (Auto) [place] % (Auto) Eos % (Auto) Baso % (Auto) Lymph # (Auto) [place] # (Auto) Eos # (Auto) Baso # (Auto) Abs Immat Gran (auto) Absolute Neuts (auto) Absolute Nucleated RBC Nucleated RBC % (auto) Smear Path Review Sodium Potassium Chloride Carbon Dioxide Anion Gap BUN Creatinine Estim Creat Clear Calc Estimated GFR Random Glucose Calcium Iron TIBC % Saturation Unsat Iron Binding Total Bilirubin AST ALT Alkaline Phosphatase Troponin I High Sens 17.3 H B-Natriuretic Peptide Total Protein Albumin Procalcitonin Stool Occult Blood POSITIVE Influenza Type A (PCR) Influenza Type B (PCR) RSV RNA Qual (PCR) SARS-CoV-2 RNA (RT-PCR) Blood Type Antibody Screen Crossmatch 08/25/24 08/26/24 08/26/24 21:46 07:17 16:14 WBC 8.0 RBC 3.29 L D Hgb 7.5 L 7.1 L 7.0 L* Hct 25.5 L 24.7 L 24.7 L MCV 75.1 L D MCH 21.6 L MCHC 28.7 L RDW 23.1 H Plt Count 560 H MPV 9.0 L Immature Gran % (Auto) Neut % (Auto) Lymph % (Auto) [place] % (Auto) Eos % (Auto) Baso % (Auto) Lymph # (Auto) [place] # (Auto) Eos # (Auto) Baso # (Auto) Abs Immat Gran (auto) Absolute Neuts (auto) Absolute Nucleated RBC 0.000 Nucleated RBC % (auto) 0.0 Smear Path Review Sodium 139 Potassium 3.4 Chloride 97 Carbon Dioxide 35 H Anion Gap 10 L BUN 6 L Creatinine 0.58 Estim Creat Clear Calc 76.1 Estimated GFR > 60 Random Glucose 82 Calcium 8.3 L D Iron TIBC % Saturation Unsat Iron Binding Total Bilirubin AST ALT Alkaline Phosphatase Troponin I High Sens B-Natriuretic Peptide Total Protein Albumin Procalcitonin 0.02 Stool Occult Blood Influenza Type A (PCR) Influenza Type B (PCR) RSV RNA Qual (PCR) SARS-CoV-2 RNA (RT-PCR) Blood Type Antibody Screen Crossmatch 08/27/24 08/28/24 08/28/24 07:24 06:25 11:56 WBC 8.7 8.6 RBC 3.43 L 3.35 L Hgb 7.3 L 7.2 L Hct 26.5 L 25.7 L MCV 77.3 L 76.7 L MCH 21.3 L 21.5 L MCHC 27.5 L 28.0 L RDW 24.1 H 24.6 H Plt Count 555 H 508 H MPV 9.4 9.5 Immature Gran % (Auto) Neut % (Auto) Lymph % (Auto) [place] % (Auto) Eos % (Auto) Baso % (Auto) Lymph # (Auto) [place] # (Auto) Eos # (Auto) Baso # (Auto) Abs Immat Gran (auto) Absolute Neuts (auto) Absolute Nucleated RBC 0.000 0.000 Nucleated RBC % (auto) 0.0 0.0 Smear Path Review Sodium 138 Potassium 3.4 Chloride 97 Carbon Dioxide 34 H Anion Gap 10 L BUN 13 Creatinine 0.62 Estim Creat Clear Calc 71.2 Estimated GFR > 60 Random Glucose 84 Calcium 8.4 Iron 8 L TIBC 311 % Saturation 3 L Unsat Iron Binding 303 Total Bilirubin AST ALT Alkaline Phosphatase Troponin I High Sens B-Natriuretic Peptide Total Protein Albumin Procalcitonin Stool Occult Blood Influenza Type A (PCR) Influenza Type B (PCR) RSV RNA Qual (PCR) SARS-CoV-2 RNA (RT-PCR) Blood Type Antibody Screen Crossmatch 08/29/24 08/29/24 08/30/24 07:15 09:22 06:56 WBC 6.8 8.1 RBC 3.26 L 3.14 L Hgb 7.1 L 6.7 L* Hct 24.7 L 24.1 L MCV 75.8 L 76.8 L MCH 21.8 L 21.3 L MCHC 28.7 L 27.8 L RDW 24.1 H 25.0 H Plt Count 423 H 394 MPV 9.2 L 9.7 Immature Gran % (Auto) Neut % (Auto) Lymph % (Auto) [place] % (Auto) Eos % (Auto) Baso % (Auto) Lymph # (Auto) [place] # (Auto) Eos # (Auto) Baso # (Auto) Abs Immat Gran (auto) Absolute Neuts (auto) Absolute Nucleated RBC 0.000 0.000 Nucleated RBC % (auto) 0.0 0.0 Smear Path Review Sodium Potassium Chloride Carbon Dioxide Anion Gap BUN Creatinine Estim Creat Clear Calc Estimated GFR Random Glucose Calcium Iron TIBC % Saturation Unsat Iron Binding Total Bilirubin AST ALT Alkaline Phosphatase Troponin I High Sens B-Natriuretic Peptide 623 H Total Protein Albumin Procalcitonin Stool Occult Blood Influenza Type A (PCR) Influenza Type B (PCR) RSV RNA Qual (PCR) SARS-CoV-2 RNA (RT-PCR) Blood Type Antibody Screen Crossmatch 08/30/24 08/30/24 08/31/24 08:05 14:42 05:50 WBC 6.9 RBC 4.03 L D Hgb 9.5 L D Hct 31.7 L D MCV 78.7 L MCH 23.6 L MCHC 30.0 L RDW 24.7 H Plt Count 377 MPV 9.5 Immature Gran % (Auto) Neut % (Auto) Lymph % (Auto) [place] % (Auto) Eos % (Auto) Baso % (Auto) Lymph # (Auto) [place] # (Auto) Eos # (Auto) Baso # (Auto) Abs Immat Gran (auto) Absolute Neuts (auto) Absolute Nucleated RBC 0.000 Nucleated RBC % (auto) 0.0 Smear Path Review Sodium Potassium Chloride Carbon Dioxide Anion Gap BUN Creatinine Estim Creat Clear Calc Estimated GFR Random Glucose Calcium Iron TIBC % Saturation Unsat Iron Binding Total Bilirubin AST ALT Alkaline Phosphatase Troponin I High Sens B-Natriuretic Peptide 481 H Total Protein Albumin Procalcitonin Stool Occult Blood Influenza Type A (PCR) Influenza Type B (PCR) RSV RNA Qual (PCR) SARS-CoV-2 RNA (RT-PCR) Blood Type O Positive Antibody Screen NEGATIVE Crossmatch See Detail Airway Mallampati Class: II TM Dist: >3cm Neck ROM: Poor Loose/Missing/Broken Teeth: Yes and Upper Heart: rrr Lungs: rhonchorous, crackles Other: white sputum base line Assessment and Plan Assessment Anesthesia Assessment: Anesthesia Plan Discussed and Chart Reviewed Final Anesthetic Review Family History of Problems with Anesthesia: No History of Problems with Anesthesia: No NPO: Yes ASA Class: III Final Preanesthetic Review: No Changes in Pt Med Stat, Meds/Allgs Chart Reviewed, Consent Obtained/Reviewed and Anes Risks/Benef Reviewed Patient Risk: High Procedure Risk: Low Anesthetic Plan Anesthetic Plan: MAC: Disposition: Standard PACU
--- NOTE | 2024-08-31 13:13 | P.OPN-COLO_ITS ---
Colonoscopy Operative Note Operative Note Date of Service: 08/31/24 Narrative: Procedure: Colonoscopy Indication: Anemia, GIB Endoscopist: Tierra Maurer MD Anesthesia Provider: Kyung Hardy CRNA Anesthesia type: MAC Instrument: Olympus [id number]-H190L Consent: Indication, risks vs benefits, and alternatives were discussed with the patient who gave written informed consent to proceed. EKG, pulse, pulse oximetry and blood pressure were monitored throughout the procedure. Please see anesthesia flowsheet. Procedure: The patient was brought to the procedure room and placed in the left lateral decubitus position. IV medications were administered by the anesthesia provider in attendance. A digital rectal exam was performed which was abnormal for hemorrhoids. A distal attachment cap was affixed to the tip of the colonoscope which was then inserted through the anus and advanced through the co ricky to the cecum at 70 cm,and terminal ileum. Appendiceal orifice and ileocecal valve were identified. Mucosa was carefully examined under high definition white light as the instrument was slowly withdrawn in a retrograde panoramic fashion. Retroflexion was performed in rectum. The procedure was not difficult. There were no immediate obvious complications. The quality of the prep was BBPS: 2+2+2 = adequate Withdrawal time 15 minutes. Limitations: No limitations. Findings: Mucosa: Normal to cecum and terminal ileum. Copious yellow liquid stool was noted in the colon which was suctioned and flushed off. Terminal ileum was deeply intubated up to 40 cm with old blood noted. A tattoo was placed at the furthest extent. Protruding lesions: * Large internal hemorrhoids without stigmata of recent bleeding. Excavated lesions: * Mild to moderate diverticulosis of left sided colon. Impression: 1. Normal colon mucosa 2. Diverticulosis 3. Hemorrhoids 4. Old blood in terminal ileum Recommendations: - No active bleeding was noted today -brown stool in colon, old blood in small bowel. - Suspect had small bowel bleeding likely from AVMs vs ulcer vs polyp vs mass - Recommend CT enterography - If no obvious lesions identified on CTE, can resume anticoagulation and consider conservative management with iron supplementation - If has recurrence of overt GIB, can then consider VCE to r/o flat lesions like AVMs. If the AVMs are present distal to the tattoo placed in T.I, can repeat colonoscopy. However, if it is proximal to the tattoo pt may not be best candidate for a DBE which tends to be a prolonged procedure - OK for liquid diet until CTE results are available
--- NOTE | 2024-08-31 13:37 | HO.PM.IMPN ---
Subjective Subjective Date of Service: 08/31/24 Interval History: seen and examined this morning follow up for anemia plan for colonoscopy today Review of Systems Review of Systems: Yes all other systems are reviewed and are negative Constitutional Constitutional: Denies chills and Denies fever(s) Physical Exam Vital Signs: Vital Signs: Last Vital Signs Temp 98.1 F 08/31/24 13:22 Pulse 70 08/31/24 13:22 Resp 14 08/31/24 13:22 BP 124/56 L 08/31/24 13:22 Pulse Ox 99 08/31/24 13:22 O2 Del Method Simple Mask 08/31/24 13:22 O2 Flow Rate 4 08/31/24 13:22 Oxygen Flow Rate 3 08/31/24 07:07 BMI result Body Mass Index 26.8 Const: General: cooperative Nutritional Appearance: average body habitus Orientation/consciousness: patient oriented x3 Resp: Effort & Inspection: normal respiratory effort, able to speak in complete sentences, no respiratory distress and no use of accessory muscles Cardio: Rate: regular rate GI: Inspection: No distended Palpation (GI): Soft to palpation and nontender Neuro: General: patient oriented x3 and moves all extremities Extrem: General: Yes no pedal edema Objective Data Active Medications Acetaminophen (Acetaminophen 325 Mg Tablet) 650 mg PO Q6H PRN PRN Reason: Pain, Mild 1-3,fever,headache Last Admin: 08/30/24 22:24 Dose: 650 mg Documented By: RITA Albuterol Sulfate (Albuterol Sulfate (0.083%) 2.5 Mg/3 Ml Vial.Neb) 2.5 mg INHALE RQ4H PRN PRN Reason: Wheezing Last Admin: 08/28/24 05:49 Dose: 2.5 mg Documented By: RUBEN Diltiazem HCl (Diltiazem Hcl Cd 240 Mg Cap.Er.Deg) 240 mg PO DAILY [facility]; Protocol Last Admin: 08/31/24 10:27 Dose: Not Given Documented By: GENEVA Non-Admin Reason: NPO Escitalopram Oxalate (Escitalopram Oxalate 20 Mg Tablet) 20 mg PO DAILY [facility] Last Admin: 08/31/24 10:27 Dose: Not Given Documented By: GENEVA Non-Admin Reason: NPO Fluticasone Propionate (Fluticasone Propionate Nasal 16 Gm [place]) 1 spray NOSTRIL-B DAILY PRN PRN Reason: allergies Last Admin: 08/30/24 09:51 Dose: 1 spray Documented By: GENEVA Fluticasone/Umeclidinium/Vilanterol (Fluticasone/Umeclidinium/Vilanterol 100/62.5/25 Blst.W.Dev) 1 puff INHALE RDAILY [facility] Last Admin: 08/31/24 08:02 Dose: Not Given Documented By: SHAYE Non-Admin Reason: Patient Refused Gabapentin (Gabapentin 300 Mg Capsule) 300 mg PO BEDTIME [facility] Last Admin: 08/31/24 01:09 Dose: Not Given Documented By: RITA Non-Admin Reason: Patient Refused Guaifenesin/Codeine Phosphate (Guaifen/Codeine Sf 200/20/10ml 10 Ml Liquid) 10 ml PO Q6H PRN PRN Reason: cough Last Admin: 08/30/24 14:35 Dose: 10 ml Documented By: GENEVA Ipratropium [place] (Ipratropium [place] Chan 0.06 % 15 Ml [place]) 2 spray NOSTRIL-B TID [facility] Last Admin: 08/31/24 10:27 Dose: Not Given Documented By: GENEVA Non-Admin Reason: Med Not Available Montelukast Sodium (Montelukast Sodium 10 Mg Tablet) 10 mg PO DAILY [facility] Last Admin: 08/31/24 10:28 Dose: Not Given Documented By: GENEVA Non-Admin Reason: NPO Naloxone HCl (Naloxone Hcl 0.4 Mg/Ml Vial) 0.04 mg IVPUSH Q5M PRN PRN Reason: Excessive sedation or RR < 8 Naloxone HCl (Naloxone Hcl 0.4 Mg/Ml Vial) 0.04 mg IVPUSH Q5M PRN PRN Reason: Excessive sedation or RR < 8 Ondansetron HCl (Ondansetron Hcl 4 Mg/2 Ml Vial) 4 mg IVPUSH Q8H PRN PRN Reason: Nausea and Vomiting Last Admin: 08/31/24 05:14 Dose: 4 mg Documented By: RITA Pantoprazole Sodium (Pantoprazole Sodium 40 Mg/10 Ml Vial) 40 mg IVPUSH BID@0630,1630 [facility] Last Admin: 08/31/24 05:14 Dose: 40 mg Documented By: RITA Ropinirole HCl (Ropinirole Hcl 0.25 Mg Tablet) 0.25 mg PO BID [facility] Last Admin: 08/31/24 10:28 Dose: Not Given Documented By: GENEVA Non-Admin Reason: NPO Simethicone (Simethicone 80 Mg Tab.Chew) 80 mg PO QIDWMHS PRN PRN Reason: Gas Sodium Chloride (0.9 % Sodium Chloride Flush 3 Ml Syringe) 3 ml IVFLUSH QSHIFT [facility] Last Admin: 08/31/24 10:18 Dose: 3 ml Documented By: GENEVA Trazodone HCl (Trazodone Hcl 25 Mg Halftab) 25 mg PO BEDTIME MRX1 PRN PRN Reason: Insomnia Labs 08/31/24 05:50 08/27/24 07:24 Labs: Laboratory Results - last 24 hr 08/30/24 08/30/24 08/31/24 08:05 14:42 05:50 MCV 78.7 L MCH 23.6 L MCHC 30.0 L RDW 24.7 H Plt Count 377 MPV 9.5 Absolute Nucleated RBC 0.000 Nucleated RBC % (auto) 0.0 B-Natriuretic Peptide 481 H Blood Type O Positive Antibody Screen NEGATIVE Crossmatch See Detail Assessment and Plan (1) Microcytic anemia: Status: Acute (2) Acute blood loss anemia: Status: Acute Plan This is an 83-year-old female with a PMH significant for?chronic hypoxemic respiratory failure, COPD on chronic 2 L home O2, paroxysmal AFib on Eliquis, HLD, HTN, venous insufficiency with chronic lower leg edema, pulmonary hypertension, and anxiety who presented to the ED with?SOB, PRADO, and cough x2 weeks found to have acute blood loss anemia likely secondary to UGIB in a pt on anticoagulation. Acute hypoxia due to acute on chronic HFpEF likely from IV fluids treated with IV lasix, will transitioned back to baseline dose of oral Lasix Acute on chronic symptomatic blood loss anemia due to iron deficiency and suspected GI bleed Follows in the outpatient setting with Hematology for chronic anemia H&H 4.9/18.2 on admission, stool positive for occult blood, concerning for UGIB continue IV PPI Hold Eliquis Status post EGD no source of anemia or upper GI bleeding plan for colonoscopy today s/p total 4 units of blood and IV iron x 3 days Acute on chronic iron def anemia Iron 8 s/p IV iron as above COPD/chronic respiratory failure Not in acute exacerbation Continue home inhalers Continue home 2 L O2 Possible pneumonia. Resolved cxr showing ?pna vs atelectasis. no sepsis No white count, chronically on supplemental oxygen due to underlying COPD. procalcitonin low more likely atelectasis, will d/c abx Paroxysmal AFib Continue diltiazem Hold Eliquis HLD Continue statin mood continue home SSRI and xanax Full Code DVT Prophylaxis: Pneumatic compression due to acute blood loss anemia disposition -PT evaluation pending Quality Stroke Does the patient have a stroke diagnosis?: No VTE Prior VTE?: No VTE Risk Level:: Medical - moderate - high VTE Device Contraindication: N/A - Device Ordered VTE Drug Contraindication: Treatment Not Indicated
[2024-08-31] MEDS: Furosemide 40 MG TABLET PO (17:28)
[2024-08-31] MEDS: Acetaminophen 325 MG TABLET 650 MG PO (20:25)
[2024-08-31] MEDS: rOPINIRole HCL 0.25 MG TABLET PO (20:25)
[2024-08-31] MEDS: Gabapentin 300 MG CAPSULE PO (20:25)
[2024-09-01] VITALS (8 sets, daily range): BP systolic 127–152; BP diastolic 58–67; PULSE 70–86; RESP 16–20; TEMP 36.1–37.2; O2SAT 92–98
[2024-09-01] MEDS: Pantoprazole Sodium 40 MG/10 ML VIAL IVPUSH ×2 (05:44→15:58)
[2024-09-01 06:51] LABS: Hemoglobin 9.8 g/dl (12.0-16.0); Mean Corpuscular HGB Conc 28.8 g/dl (31.0-35.0); Mean Corpuscular Hemoglobin 23.1 pg (27.0-33.0); Mean Corpuscular Volume 80.2 fL (80.0-98.0); Mean Platelet Volume 9.2 fL (9.4-12.3); Platelet Count 368 X10*3/uL (160-400); Red Blood Count 4.24 X10*6/uL (4.20-5.50); Red Cell Distribution Width 25.5 % (11.0-16.0); White Blood Count 3.7 X10*3/uL (4.8-10.8)
[2024-09-01 06:53] LABS: Anion Gap 12 (12-20); Blood Urea Nitrogen 5 mg/dL (9-16); Calcium 9.1 mg/dL (8.4-10.2); Carbon Dioxide 39 mmol/L (22-29); Chloride 93 mmol/L (96-108); Creatinine Clr Calc Pharmacy 80.2; Estimated Glomerular Filt Rate > 60; Glucose Random 115 mg/dL (60-115); Potassium 3.1 mmol/L (3.3-5.1); Sodium 141 mmol/L (135-145)
[2024-09-01 07:43] LABS: Magnesium 1.5 mg/dL (1.6-2.6)
[2024-09-01] MEDS: Fluticasone/Umeclidinium/Vilanterol 100/62.5/25 BLST.W.DEV 1 PUFF INHALE (07:43)
--- NOTE | 2024-09-01 08:14 | HO.POSTANES ---
Post Anesthesia Evaluation Post Anesthesia Evaluation Date of Service: 09/01/24 Vital Signs: Vital Signs Temp Pulse Resp BP Pulse Ox O2 Del Method O2 Flow Rate 09/01/24 07:45 85 18 09/01/24 07:39 98.9 F 82 20 152/67 H 97 Nasal Cannula 4 09/01/24 07:37 86 141/60 H 95 09/01/24 04:00 97.7 F 86 16 141/60 H 95 Nasal Cannula 3 09/01/24 00:00 97.7 F 86 16 141/60 H 95 09/01/24 00:00 97 F 86 16 131/61 92 Nasal Cannula 3 Anesthesia: Monitored Mental Status: Awake Pain Control: Satisfactory Nausea/Vomiting: None Hydration: Adequate Anesthesia-Related Issues: No Anes. Related Issues
[2024-09-01] MEDS: 0.9 % Sodium Chloride Flush 3 ML SYRINGE IVFLUSH ×2 (08:35→15:58)
[2024-09-01] MEDS: dilTIAZem HCL CD 240 MG CAP.ER.DEG PO (08:42)
[2024-09-01] MEDS: Escitalopram Oxalate 20 MG TABLET PO (08:43)
[2024-09-01] MEDS: rOPINIRole HCL 0.25 MG TABLET PO ×2 (08:43→20:54)
[2024-09-01] MEDS: Montelukast Sodium 10 MG TABLET PO (08:43)
[2024-09-01] MEDS: Potassium Chloride Packet 20 MEQ PACKET 40 MEQ PO ×2 (08:43→20:54)
--- NOTE | 2024-09-01 09:21 | MHC.CM.PN ---
PT is recommending home with services; CM will follow.
--- NOTE | 2024-09-01 11:34 | P.PNIM_ITS ---
Subjective Subjective Date of Service: 09/01/24 Interval History: seen and examined this morning follow up for GI bleeding/anemia plan for CT enterography today Review of Systems Review of Systems: Yes all other systems are reviewed and are negative Constitutional Constitutional: Denies chills and Denies fever(s) Cardiovascular Cardiovascular: Denies dyspnea Respiratory Respiratory: Denies cough and Denies dyspnea Gastrointestinal Gastrointestinal: Denies abdominal pain and Denies vomiting Physical Exam 2 Vital Signs: Vital Signs: Last Vital Signs Temp 98.9 F 09/01/24 07:39 Pulse 85 09/01/24 07:45 Resp 18 09/01/24 07:45 BP 152/67 H 09/01/24 07:39 Pulse Ox 97 09/01/24 07:39 O2 Del Method Room Air 09/01/24 08:00 O2 Flow Rate 4 09/01/24 07:39 Oxygen Flow Rate 96 09/01/24 08:00 BMI result Body Mass Index 26.8 Const: General: cooperative, comfortable, no acute distress, alert and awake Nutritional Appearance: average body habitus Orientation/consciousness: p atient oriented x3 Resp: Effort & Inspection: normal respiratory effort, able to speak in complete sentences, no respiratory distress and no use of accessory muscles Cardio: Rate: regular rate GI: Inspection: No distended Palpation (GI): Soft to palpation and nontender Neuro: General: patient oriented x3 and moves all extremities Extrem: General: Yes no pedal edema Objective Data Active Medications Acetaminophen (Acetaminophen 325 Mg Tablet) 650 mg PO Q6H PRN PRN Reason: Pain, Mild 1-3,fever,headache Last Admin: 08/31/24 20:25 Dose: 650 mg Documented By: RITA Albuterol Sulfate (Albuterol Sulfate (0.083%) 2.5 Mg/3 Ml Vial.Neb) 2.5 mg INHALE RQ4H PRN PRN Reason: Wheezing Last Admin: 08/28/24 05:49 Dose: 2.5 mg Documented By: RUBEN Diltiazem HCl (Diltiazem Hcl Cd 240 Mg Cap.Er.Deg) 240 mg PO DAILY [facility]; Protocol Last Admin: 09/01/24 08:42 Dose: 240 mg Documented By: ELISEO Escitalopram Oxalate (Escitalopram Oxalate 20 Mg Tablet) 20 mg PO DAILY [facility] Last Admin: 09/01/24 08:43 Dose: 20 mg Documented By: ELISEO Fluticasone Propionate (Fluticasone Propionate Nasal 16 Gm [place]) 1 spray NOSTRIL-B DAILY PRN PRN Reason: allergies Last Admin: 08/30/24 09:51 Dose: 1 spray Documented By: GENEVA Fluticasone/Umeclidinium/Vilanterol (Fluticasone/Umeclidinium/Vilanterol 100/62.5/25 Blst.W.Dev) 1 puff INHALE RDAILY [facility] Last Admin: 09/01/24 07:43 Dose: 1 puff Documented By: SHAYE Furosemide (Furosemide 40 Mg Tablet) 40 mg PO BID@0900,1800 [facility]; Protocol Last Admin: 08/31/24 17:28 Dose: 40 mg Documented By: GENEVA Gabapentin (Gabapentin 300 Mg Capsule) 300 mg PO BEDTIME [facility] Last Admin: 08/31/24 20:25 Dose: 300 mg Documented By: RIAT Guaifenesin/Codeine Phosphate (Guaifen/Codeine Sf 200/20/10ml 10 Ml Liquid) 10 ml PO Q6H PRN PRN Reason: cough Last Admin: 08/30/24 14:35 Dose: 10 ml Documented By: GENEVA Ipratropium [place] (Ipratropium [place] Chan 0.06 % 15 Ml [place]) 2 spray NOSTRIL-B TID [facility] Last Admin: 09/01/24 11:26 Dose: Not Given Documented By: ELISEO Non-Admin Reason: Med Not Available Montelukast Sodium (Montelukast Sodium 10 Mg Tablet) 10 mg PO DAILY [facility] Last Admin: 09/01/24 08:43 Dose: 10 mg Documented By: ELISEO Naloxone HCl (Naloxone Hcl 0.4 Mg/Ml Vial) 0.04 mg IVPUSH Q5M PRN PRN Reason: Excessive sedation or RR < 8 Naloxone HCl (Naloxone Hcl 0.4 Mg/Ml Vial) 0.04 mg IVPUSH Q5M PRN PRN Reason: Excessive sedation or RR < 8 Ondansetron HCl (Ondansetron Hcl 4 Mg/2 Ml Vial) 4 mg IVPUSH Q8H PRN PRN Reason: Nausea and Vomiting Last Admin: 08/31/24 05:14 Dose: 4 mg Documented By: RITA Pantoprazole Sodium (Pantoprazole Sodium 40 Mg/10 Ml Vial) 40 mg IVPUSH BID@0630,1630 [facility] Last Admin: 09/01/24 05:44 Dose: 40 mg Documented By: RITA Potassium Chloride (Potassium Chloride Packet 20 Meq Packet) 40 meq PO BID [facility] Stop: 09/01/24 21:01 Last Admin: 09/01/24 08:43 Dose: 40 meq Documented By: ELISEO Ropinirole HCl (Ropinirole Hcl 0.25 Mg Tablet) 0.25 mg PO BID [facility] Last Admin: 09/01/24 08:43 Dose: 0.25 mg Documented By: ELISEO Simethicone (Simethicone 80 Mg Tab.Chew) 80 mg PO QIDWMHS PRN PRN Reason: Gas Sodium Chloride (0.9 % Sodium Chloride Flush 3 Ml Syringe) 3 ml IVFLUSH QSHIFT [facility] Last Admin: 09/01/24 08:35 Dose: 3 ml Documented By: ELISEO Trazodone HCl (Trazodone Hcl 25 Mg Halftab) 25 mg PO BEDTIME MRX1 PRN PRN Reason: Insomnia Labs 09/01/24 06:19 09/01/24 06:19 Labs: Laboratory Results - last 24 hr 09/01/24 06:19 MCV 80.2 MCH 23.1 L MCHC 28.8 L RDW 25.5 H Plt Count 368 MPV 9.2 L Absolute Nucleated RBC 0.000 Nucleated RBC % (auto) 0.0 Anion Gap 12 Estim Creat Clear Calc 80.2 Estimated GFR > 60 Random Glucose 115 Calcium 9.1 D Magnesium 1.5 L Assessment and Plan (1) Acute blood loss anemia: Status: Acute Plan This is an 83-year-old female with a PMH significant for?chronic hypoxemic respiratory failure, COPD on chronic 2 L home O2, paroxysmal AFib on Eliquis, HLD, HTN, venous insufficiency with chronic lower leg edema, pulmonary hypertension, and anxiety who presented to the ED with?SOB, PRADO, and cough x2 weeks found to have acute blood loss anemia likely secondary to UGIB in a pt on anticoagulation. Acute on chronic symptomatic blood loss anemia due to iron deficiency and suspected GI bleed Follows in the outpatient setting with Hematology for chronic anemia H&H 4.9/18.2 on admission, stool positive for occult blood, concerning for UGIB continue IV PPI Hold Eliquis Status post EGD and colonoscopy no source of anemia or upper GI bleeding plan for CT enterography today s/p total 4 units of blood and IV iron x 3 days Acute on chronic iron def anemia Iron 8 s/p IV iron as above Hypokalemia/hypomagnesemia due to decreased po intake and lasix hold lasix replace and follow electrolytes Acute hypoxia due to acute on chronic HFpEF likely from IV fluids treated with IV lasix, has been npo, will hold po lasix for now COPD/chronic respiratory failure Not in acute exacerbation Continue home inhalers Continue home 2 L O2 Possible pneumonia. Resolved cxr showing ?pna vs atelectasis. no sepsis No white count, chronically on supplemental oxygen due to underlying COPD. procalcitonin low more likely atelectasis, abx d/c Paroxysmal AFib Continue diltiazem Hold Eliquis HLD Continue statin mood continue home SSRI and xanax Full Code DVT Prophylaxis: Pneumatic compression due to acute blood loss anemia disposition -PT rec home with services Quality Stroke Does the patient have a stroke diagnosis?: No VTE Prior VTE?: No VTE Risk Level:: Medical - moderate - high VTE Device Contraindication: N/A - Device Ordered VTE Drug Contraindication: Treatment Not Indicated
[2024-09-01] MEDS: iohexoL 350 MG/ML 100 ML INFUS..BTL 85 ML IV (12:06)
[2024-09-01] MEDS: Sorbitol/Mannit/Xanth Imaging 500 ML LIQUID 1500 ML PO (12:07)
[2024-09-01] MEDS: Magnesium Sulfate/H2O 2 GM/50 ML PIGGYBACK IV (12:44)
[2024-09-01] MEDS: Acetaminophen 325 MG TABLET 650 MG PO (20:53)
[2024-09-01] MEDS: Gabapentin 300 MG CAPSULE PO (20:54)
[2024-09-01] MEDS: guaiFEN/Codeine SF 200/20/10ML 10 ML LIQUID PO (21:00)
[2024-09-02] VITALS (9 sets, daily range): BP systolic 101–138; BP diastolic 46–65; PULSE 56–65; RESP 16–20; TEMP 36.6–37.2; O2SAT 92–98
[2024-09-02] MEDS: Pantoprazole Sodium 40 MG/10 ML VIAL IVPUSH ×2 (05:43→16:05)
[2024-09-02] MEDS: Fluticasone/Umeclidinium/Vilanterol 100/62.5/25 BLST.W.DEV 1 PUFF INHALE (07:49)
[2024-09-02 08:08] LABS: Hematocrit 30.1 % (37.0-47.0); Hemoglobin 8.9 g/dl (12.0-16.0)
[2024-09-02 08:15] LABS: Anion Gap 10 (12-20); Blood Urea Nitrogen 7 mg/dL (9-16); Calcium 8.9 mg/dL (8.4-10.2); Carbon Dioxide 37 mmol/L (22-29); Chloride 94 mmol/L (96-108); Creatinine Clr Calc Pharmacy 73.6; Estimated Glomerular Filt Rate > 60; Glucose Random 82 mg/dL (60-115); Magnesium 1.9 mg/dL (1.6-2.6); Potassium 3.2 mmol/L (3.3-5.1); Sodium 138 mmol/L (135-145)
[2024-09-02] MEDS: Escitalopram Oxalate 20 MG TABLET PO (08:57)
[2024-09-02] MEDS: Fluticasone Propionate Nasal 16 GM SPRAY 1 SPRAY NOSTRIL-B (08:57)
[2024-09-02] MEDS: 0.9 % Sodium Chloride Flush 3 ML SYRINGE IVFLUSH ×3 (08:57→16:05)
[2024-09-02] MEDS: Montelukast Sodium 10 MG TABLET PO (08:57)
[2024-09-02] MEDS: dilTIAZem HCL CD 240 MG CAP.ER.DEG PO (08:57)
[2024-09-02] MEDS: rOPINIRole HCL 0.25 MG TABLET PO ×2 (08:57→20:35)
[2024-09-02] MEDS: Potassium Chloride ER 20 MEQ TAB.ER.PRT 40 MEQ PO (10:08)
[2024-09-02] MEDS: guaiFEN/Codeine SF 200/20/10ML 10 ML LIQUID PO (10:25)
--- NOTE | 2024-09-02 11:08 | HO.PM.IMPN ---
Subjective Subjective Date of Service: 09/02/24 Interval History: seen and examined this morning follow up for GI bleeding/anemia plan for CT enterography today Review of Systems Review of Systems: Yes all other systems are reviewed and are negative Constitutional Constitutional: Denies chills and Denies fever(s) Cardiovascular Cardiovascular: Denies dyspnea Respiratory Respiratory: Denies cough and Denies dyspnea Gastrointestinal Gastrointestinal: Denies abdominal pain and Denies vomiting Physical Exam Vital Signs: Vital Signs: Last Vital Signs Temp 98.5 F 09/02/24 07:59 Pulse 64 09/02/24 07:59 Resp 20 09/02/24 07:59 BP 138/65 09/02/24 07:59 Pulse Ox 96 09/02/24 07:59 O2 Del Method Nasal Cannula 09/02/24 07:59 O2 Flow Rate 3 09/02/24 07:59 Oxygen Flow Rate 3 09/02/24 07:48 BMI result Body Mass Index 26.8 Objective Data Active Medications Acetaminophen (Acetaminophen 325 Mg Tablet) 650 mg PO Q6H PRN PRN Reason: Pain, Mild 1-3,fever,headache Last Admin: 09/01/24 20:53 Dose: 650 mg Documented By: LORENZO Albuterol Sulfate (Albuterol Sulfate (0.083%) 2.5 Mg/3 Ml Vial.Neb) 2.5 mg INHALE RQ4H PRN PRN Reason: Wheezing Last Admin: 08/28/24 05:49 Dose: 2.5 mg Documented By: RUBEN Diltiazem HCl (Diltiazem Hcl Cd 240 Mg Cap.Er.Deg) 240 mg PO DAILY [facility]; Protocol Last Admin: 09/02/24 08:57 Dose: 240 mg Documented By: ELISEO Escitalopram Oxalate (Escitalopram Oxalate 20 Mg Tablet) 20 mg PO DAILY [facility] Last Admin: 09/02/24 08:57 Dose: 20 mg Documented By: ELISEO Fluticasone Propionate (Fluticasone Propionate Nasal 16 Gm [place]) 1 spray NOSTRIL-B DAILY PRN PRN Reason: allergies Last Admin: 09/02/24 08:57 Dose: 1 spray Documented By: ELISEO Fluticasone/Umeclidinium/Vilanterol (Fluticasone/Umeclidinium/Vilanterol 100/62.5/ Blst.W.Dev) 1 puff INHALE RDAILY [facility] Last Admin: 09/02/24 07:49 Dose: 1 puff Documented By: ALEX Furosemide (Furosemide 40 Mg Tablet) 40 mg PO BID@0900,1800 [facility]; Protocol Last Admin: 08/31/24 17:28 Dose: 40 mg Documented By: GENEVA Gabapentin (Gabapentin 300 Mg Capsule) 300 mg PO BEDTIME [facility] Last Admin: 09/01/24 20:54 Dose: 300 mg Documented By: LORENZO Guaifenesin/Codeine Phosphate (Guaifen/Codeine Sf 200/20/10ml 10 Ml Liquid) 10 ml PO Q6H PRN PRN Reason: cough Last Admin: 09/02/24 10:25 Dose: 10 ml Documented By: ELISEO Ipratropium [place] (Ipratropium [place] Chan 0.06 % 15 Ml [place]) 2 spray NOSTRIL-B TID [facility] Last Admin: 09/02/24 08:57 Dose: Not Given Documented By: ELISEO Non-Admin Reason: Med Not Available Montelukast Sodium (Montelukast Sodium 10 Mg Tablet) 10 mg PO DAILY [facility] Last Admin: 09/02/24 08:57 Dose: 10 mg Documented By: ELISEO Naloxone HCl (Naloxone Hcl 0.4 Mg/Ml Vial) 0.04 mg IVPUSH Q5M PRN PRN Reason: Excessive sedation or RR < 8 Naloxone HCl (Naloxone Hcl 0.4 Mg/Ml Vial) 0.04 mg IVPUSH Q5M PRN PRN Reason: Excessive sedation or RR < 8 Ondansetron HCl (Ondansetron Hcl 4 Mg/2 Ml Vial) 4 mg IVPUSH Q8H PRN PRN Reason: Nausea and Vomiting Last Admin: 08/31/24 05:14 Dose: 4 mg Documented By: RITA Pantoprazole Sodium (Pantoprazole Sodium 40 Mg/10 Ml Vial) 40 mg IVPUSH BID@0630,1630 [facility] Last Admin: 09/02/24 05:43 Dose: 40 mg Documented By: LORENZO Ropinirole HCl (Ropinirole Hcl 0.25 Mg Tablet) 0.25 mg PO BID [facility] Last Admin: 09/02/24 08:57 Dose: 0.25 mg Documented By: ELISEO Simethicone (Simethicone 80 Mg Tab.Chew) 80 mg PO QIDWMHS PRN PRN Reason: Gas Sodium Chloride (0.9 % Sodium Chloride Flush 3 Ml Syringe) 3 ml IVFLUSH QSHIFT [facility] Last Admin: 09/02/24 08:57 Dose: 3 ml Documented By: ELISEO Trazodone HCl (Trazodone Hcl 25 Mg Halftab) 25 mg PO BEDTIME MRX1 PRN PRN Reason: Insomnia Labs 09/02/24 07:23 09/02/24 07:23 Labs: Laboratory Results - last 24 hr 09/02/24 07:23 Anion Gap 10 L Estim Creat Clear Calc 73.6 Estimated GFR > 60 Random Glucose 82 Calcium 8.9 Magnesium 1.9 Assessment and Plan (1) Acute blood loss anemia: Status: Acute Plan 83-year-old female with a PMH significant for?chronic hypoxemic respiratory failure, COPD on chronic 2 L home O2, paroxysmal AFib on Eliquis, HLD, HTN, venous insufficiency with chronic lower leg edema, pulmonary hypertension, and anxiety who presented to the ED with?SOB, PRADO, and cough x2 weeks found to have acute blood loss anemia likely secondary to UGIB in a pt on anticoagulation. Cough repeat CXR RPP mucinex Acute on chronic symptomatic blood loss anemia due to iron deficiency and suspected GI bleed Follows in the outpatient setting with Hematology for chronic anemia H&H 4.918.2 on admission, stool positive for occult blood, concerning for UGIB continue IV PPI Hold Eliquis Status post EGD and colonoscopy no source of anemia or upper GI bleeding plan for CT enterography today s/p total 4 units of blood and IV iron x 3 days Acute on chronic iron def anemia Iron 8 s/p IV iron as above Hypokalemia/hypomagnesemia due to decreased po intake and lasix hold lasix replace and follow electrolytes Acute hypoxia due to acute on chronic HFpEF likely from IV fluids treated with IV lasix COPD/chronic respiratory failure Not in acute exacerbation Continue home inhalers Continue home 2 L O2 Possible pneumonia. Resolved cxr showing ?pna vs atelectasis. no sepsis No white count, chronically on supplemental oxygen due to underlying COPD. procalcitonin low more likely atelectasis, abx d/c Paroxysmal AFib Continue diltiazem Hold Eliquis HLD Continue statin mood continue home SSRI and xanax Full Code DVT Prophylaxis: Pneumatic compression due to acute blood loss anemia disposition -PT rec home with services Quality Stroke Does the patient have a stroke diagnosis?: No VTE Prior VTE?: No VTE Risk Level:: Medical - moderate - high VTE Device Contraindication: N/A - Device Ordered VTE Drug Contraindication: Treatment Not Indicated
[2024-09-02] MEDS: guaiFENesin LA 600 MG TAB.ER.12H PO ×2 (13:25→20:35)
[2024-09-02] MEDS: Acetaminophen 325 MG TABLET 650 MG PO (20:35)
[2024-09-02] MEDS: Gabapentin 300 MG CAPSULE PO (20:35)
[2024-09-03] VITALS (14 sets, daily range): BP systolic 105–142; BP diastolic 56–65; PULSE 65–92; RESP 18–20; TEMP 36.6–37.2; O2SAT 91–99
[2024-09-03] MEDS: Pantoprazole Sodium 40 MG/10 ML VIAL IVPUSH ×2 (06:24→16:34)
[2024-09-03] MEDS: Fluticasone/Umeclidinium/Vilanterol 100/62.5/25 BLST.W.DEV 1 PUFF INHALE (07:47)
--- NOTE | 2024-09-03 08:38 | HO.PM.IMPN ---
Subjective Subjective Date of Service: 09/03/24 Interval History: seen and examined this morning follow up for GI bleeding/anemia now with pna, copd Review of Systems Review of Systems: Yes all other systems are reviewed and are negative Constitutional Constitutional: Denies chills and Denies fever(s) Cardiovascular Cardiovascular: Denies dyspnea Respiratory Respiratory: Denies cough and Denies dyspnea Gastrointestinal Gastrointestinal: Denies abdominal pain and Denies vomiting Physical Exam Vital Signs: Vital Signs: Last Vital Signs Temp 98.5 F 09/03/24 07:29 Pulse 73 09/03/24 07:47 Resp 18 09/03/24 07:47 BP 142/65 H 09/03/24 07:29 Pulse Ox 92 09/03/24 07:29 O2 Del Method Nasal Cannula 09/03/24 07:29 O2 Flow Rate 2 09/03/24 07:29 Oxygen Flow Rate 2 09/02/24 11:39 BMI result Body Mass Index 26.8 Appearing in no acute distress lung sounds dim, mild exp wheezing heart regular rate rhythm, clear S1, S2 positive bowel sounds, abdomen is soft, nontender neuro patient is alert x3, no focal deficits Objective Data Active Medications Acetaminophen (Acetaminophen 325 Mg Tablet) 650 mg PO Q6H PRN PRN Reason: Pain, Mild 1-3,fever,headache Last Admin: 09/02/24 20:35 Dose: 650 mg Documented By: LORENZO Albuterol Sulfate (Albuterol Sulfate (0.083%) 2.5 Mg/3 Ml Vial.Neb) 2.5 mg INHALE RQ4H [facility] Diltiazem HCl (Diltiazem Hcl Cd 240 Mg Cap.Er.Deg) 240 mg PO DAILY [facility]; Protocol Last Admin: 09/02/24 08:57 Dose: 240 mg Documented By: ELISEO Escitalopram Oxalate (Escitalopram Oxalate 20 Mg Tablet) 20 mg PO DAILY [facility] Last Admin: 09/02/24 08:57 Dose: 20 mg Documented By: ELISEO Fluticasone Propionate (Fluticasone Propionate Nasal 16 Gm [place]) 1 spray NOSTRIL-B DAILY PRN PRN Reason: allergies Last Admin: 09/02/24 08:57 Dose: 1 spray Documented By: ELISEO Fluticasone/Umeclidinium/Vilanterol (Fluticasone/Umeclidinium/Vilanterol 100/62.5/ Blst.W.Dev) 1 puff INHALE RDAILY [facility] Last Admin: 09/03/24 07:47 Dose: 1 puff Documented By: MUMTAZ Furosemide (Furosemide 40 Mg Tablet) 40 mg PO BID@0900,1800 [facility]; Protocol Last Admin: 08/31/24 17:28 Dose: 40 mg Documented By: GENEVA Gabapentin (Gabapentin 300 Mg Capsule) 300 mg PO BEDTIME [facility] Last Admin: 09/02/24 20:35 Dose: 300 mg Documented By: LORENZO Guaifenesin (Guaifenesin La 600 Mg Tab.Er.12h) 600 mg PO BID [facility] Last Admin: 09/02/24 20:35 Dose: 600 mg Documented By: LORENZO Guaifenesin/Codeine Phosphate (Guaifen/Codeine Sf 200/20/10ml 10 Ml Liquid) 10 ml PO Q6H PRN PRN Reason: cough Last Admin: 09/02/24 10:25 Dose: 10 ml Documented By: ELISEO Ipratropium [place] (Ipratropium [place] Chan 0.06 % 15 Ml [place]) 2 spray NOSTRIL-B TID [facility] Last Admin: 09/02/24 17:02 Dose: Not Given Documented By: ELISEO Non-Admin Reason: Med Not Available Methylprednisolone Sodium Succinate (Methylprednisolone Sod Succ 40 Mg/Ml Vial) 40 mg IVPUSH Q12H [facility] Montelukast Sodium (Montelukast Sodium 10 Mg Tablet) 10 mg PO DAILY [facility] Last Admin: 09/02/24 08:57 Dose: 10 mg Documented By: ELISEO Naloxone HCl (Naloxone Hcl 0.4 Mg/Ml Vial) 0.04 mg IVPUSH Q5M PRN PRN Reason: Excessive sedation or RR < 8 Naloxone HCl (Naloxone Hcl 0.4 Mg/Ml Vial) 0.04 mg IVPUSH Q5M PRN PRN Reason: Excessive sedation or RR < 8 Ondansetron HCl (Ondansetron Hcl 4 Mg/2 Ml Vial) 4 mg IVPUSH Q8H PRN PRN Reason: Nausea and Vomiting Last Admin: 08/31/24 05:14 Dose: 4 mg Documented By: RTIA Pantoprazole Sodium (Pantoprazole Sodium 40 Mg/10 Ml Vial) 40 mg IVPUSH BID@0630,1630 [facility] Last Admin: 09/03/24 06:24 Dose: 40 mg Documented By: LORENZO Ropinirole HCl (Ropinirole Hcl 0.25 Mg Tablet) 0.25 mg PO BID [facility] Last Admin: 09/02/24 20:35 Dose: 0.25 mg Documented By: LORENZO Simethicone (Simethicone 80 Mg Tab.Chew) 80 mg PO QIDWMHS PRN PRN Reason: Gas Sodium Chloride (0.9 % Sodium Chloride Flush 3 Ml Syringe) 3 ml IVFLUSH QSHIFT [facility] Last Admin: 09/03/24 00:00 Dose: 3 ml Documented By: LORENZO Trazodone HCl (Trazodone Hcl 25 Mg Halftab) 25 mg PO BEDTIME MRX1 PRN PRN Reason: Insomnia Labs 09/02/24 07:23 09/02/24 07:23 Assessment and Plan (1) Acute blood loss anemia: Status: Acute Plan 83-year-old female with a PMH significant for?chronic hypoxemic respiratory failure, COPD on chronic 2 L home O2, paroxysmal AFib on Eliquis, HLD, HTN, venous insufficiency with chronic lower leg edema, pulmonary hypertension, and anxiety who presented to the ED with?SOB, PRADO, and cough x2 weeks found to have acute blood loss anemia likely secondary to UGIB in a pt on anticoagulation. Acute on chronic resp failure secondary to CAP, COPD exacerbation with cough repeat CXR showing consolidation started rocephin, axithromycin solumedrol, duonebs mucinex Acute on chronic symptomatic blood loss anemia due to iron deficiency and suspected GI bleed. Resolved Follows in the outpatient setting with Hematology for chronic anemia H&H 4.9/18.2 on admission, stool positive for occult blood, concerning for UGIB continue IV PPI Hold Eliquis Status post EGD and colonoscopy no source of anemia or upper GI bleeding plan for CT enterography today s/p total 4 units of blood and IV iron x 3 days Acute on chronic iron def anemia Iron 8 s/p IV iron x3 days as above Hypokalemia/hypomagnesemia. Resolved due to decreased po intake and lasix replace and follow electrolytes Acute hypoxia due to acute on chronic HFpEF. Resolved likely from IV fluids treated with IV lasix continue po lasix Paroxysmal AFib Continue diltiazem Hold Eliquis HLD Continue statin mood continue home SSRI and xanax Full Code DVT Prophylaxis: Pneumatic compression due to acute blood loss anemia disposition -PT rec home with services Quality Stroke Does the patient have a stroke diagnosis?: No VTE Prior VTE?: No VTE Risk Level:: Medical - moderate - high VTE Device Contraindication: N/A - Device Ordered VTE Drug Contraindication: Treatment Not Indicated
[2024-09-03] MEDS: Albuterol Sulfate (0.083%) 2.5 MG/3 ML VIAL.NEB INHALE ×4 (08:45→23:23)
[2024-09-03] MEDS: methylPREDNISolone Sod Succ 40 MG/ML VIAL IVPUSH ×2 (09:37→21:20)
[2024-09-03] MEDS: Azithromycin 500 MG in 0.9 % Sodium Chloride 250 ML 125 MG IV (09:37)
[2024-09-03] MEDS: cefTRIAXone sodium 1 GM VIAL IVPUSH (09:37)
[2024-09-03] MEDS: 0.9 % Sodium Chloride Flush 3 ML SYRINGE IVFLUSH ×4 (09:38→21:20)
[2024-09-03] MEDS: dilTIAZem HCL CD 240 MG CAP.ER.DEG PO (09:38)
[2024-09-03] MEDS: Escitalopram Oxalate 20 MG TABLET PO (09:38)
[2024-09-03] MEDS: guaiFENesin LA 600 MG TAB.ER.12H PO ×2 (09:38→21:20)
[2024-09-03] MEDS: rOPINIRole HCL 0.25 MG TABLET PO ×2 (09:38→21:20)
[2024-09-03] MEDS: Montelukast Sodium 10 MG TABLET PO (09:38)
[2024-09-03] MEDS: Fluticasone Propionate Nasal 16 GM SPRAY 1 SPRAY NOSTRIL-B (09:41)
[2024-09-03 09:42] LABS: Anion Gap 11 (12-20); Blood Urea Nitrogen 8 mg/dL (9-16); Calcium 9.3 mg/dL (8.4-10.2); Carbon Dioxide 34 mmol/L (22-29); Chloride 100 mmol/L (96-108); Creatinine Clr Calc Pharmacy 65.9; Estimated Glomerular Filt Rate > 60; Glucose Random 114 mg/dL (60-115); Potassium 3.4 mmol/L (3.3-5.1); Sodium 142 mmol/L (135-145)
[2024-09-03 09:50] LABS: B Type Natriuretic Peptide 345 pg/mL (<100)
[2024-09-03] MEDS: ondansetron HCL 4 MG/2 ML VIAL IVPUSH (11:36)
[2024-09-03] MEDS: Furosemide 40 MG/4 ML VIAL IVPUSH (16:34)
[2024-09-03] MEDS: Gabapentin 300 MG CAPSULE PO (21:20)
[2024-09-03] MEDS: guaiFEN/Codeine SF 200/20/10ML 10 ML LIQUID PO (23:10)
[2024-09-03] MEDS: Acetaminophen 325 MG TABLET 650 MG PO (23:10)
[2024-09-04] VITALS (13 sets, daily range): BP systolic 117–145; BP diastolic 57–70; PULSE 66–88; RESP 16–20; TEMP 36.1–37.2; O2SAT 92–100
[2024-09-04] MEDS: Albuterol Sulfate (0.083%) 2.5 MG/3 ML VIAL.NEB INHALE ×4 (03:08→20:08)
[2024-09-04] MEDS: Pantoprazole Sodium 40 MG/10 ML VIAL IVPUSH ×2 (05:30→18:26)
[2024-09-04 06:41] LABS: Anion Gap 13 (12-20); Blood Urea Nitrogen 17 mg/dL (9-16); Calcium 8.4 mg/dL (8.4-10.2); Carbon Dioxide 33 mmol/L (22-29); Chloride 98 mmol/L (96-108); Creatinine Clr Calc Pharmacy 66.9; Estimated Glomerular Filt Rate > 60; Glucose Random 198 mg/dL (60-115); Sodium 140 mmol/L (135-145)
[2024-09-04 06:48] LABS: B Type Natriuretic Peptide 702 pg/mL (<100)
[2024-09-04] MEDS: Fluticasone/Umeclidinium/Vilanterol 100/62.5/25 BLST.W.DEV 1 PUFF INHALE (07:35)
[2024-09-04] MEDS: Azithromycin 500 MG in 0.9 % Sodium Chloride 250 ML 125 MG IV (08:46)
[2024-09-04] MEDS: cefTRIAXone sodium 1 GM VIAL IVPUSH (08:46)
[2024-09-04] MEDS: methylPREDNISolone Sod Succ 40 MG/ML VIAL IVPUSH ×2 (08:52→21:21)
[2024-09-04] MEDS: Furosemide 40 MG/4 ML VIAL IVPUSH ×2 (08:52→18:26)
[2024-09-04] MEDS: guaiFENesin LA 600 MG TAB.ER.12H PO ×2 (08:53→21:21)
[2024-09-04] MEDS: Escitalopram Oxalate 20 MG TABLET PO (08:53)
[2024-09-04] MEDS: rOPINIRole HCL 0.25 MG TABLET PO ×2 (08:53→21:21)
[2024-09-04] MEDS: dilTIAZem HCL CD 240 MG CAP.ER.DEG PO (08:53)
[2024-09-04] MEDS: Montelukast Sodium 10 MG TABLET PO (08:53)
[2024-09-04] MEDS: 0.9 % Sodium Chloride Flush 3 ML SYRINGE IVFLUSH ×3 (08:53→21:21)
--- NOTE | 2024-09-04 09:33 | P.PNIM_ITS ---
Subjective Subjective Date of Service: 09/04/24 Interval History: seen and examined this morning follow up for GI bleeding/anemia now with pna, copd Review of Systems Review of Systems: Yes all other systems are reviewed and are negative Constitutional Constitutional: Denies chills and Denies fever(s) Cardiovascular Cardiovascular: Denies dyspnea Respiratory Respiratory: Denies cough and Denies dyspnea Gastrointestinal Gastrointestinal: Denies abdominal pain and Denies vomiting Physical Exam 2 Vital Signs: Vital Signs: Last Vital Signs Temp 97.2 F 09/04/24 07:28 Pulse 85 09/04/24 07:37 Resp 20 09/04/24 07:37 BP 139/60 09/04/24 07:28 Pulse Ox 94 09/04/24 07:28 O2 Del Method Nasal Cannula 09/04/24 07:28 O2 Flow Rate 2 09/04/24 07:28 Oxygen Flow Rate 2 09/03/24 11:57 BMI result Body Mass Index 26.8 Appearing in no acute distress lung sounds are clear to auscultation heart regular rate rhythm, clear S1, S2 positive bowel sounds, abdomen is soft, nontender neuro patient is alert x3, no focal deficits Objective Data Active Medications Acetaminophen (Acetaminophen 325 Mg Tablet) 650 mg PO Q6H PRN PRN Reason: Pain, Mild 1-3,fever,headache Last Admin: 09/03/24 23:10 Dose: 650 mg Documented By: CURT Albuterol Sulfate (Albuterol Sulfate (0.083%) 2.5 Mg/3 Ml Vial.Neb) 2.5 mg INHALE RQ4H [facility] Last Admin: 09/04/24 07:37 Dose: 2.5 mg Documented By: ALEX Ceftriaxone Sodium (Ceftriaxone Sodium 1 Gm Vial) 1 gm IVPUSH Q24H [facility] [place] Last Admin: 09/04/24 08:46 Dose: 1 gm Documented By: ANNIE Diltiazem HCl (Diltiazem Hcl Cd 240 Mg Cap.Er.Deg) 240 mg PO DAILY [facility] [place]; Protocol Last Admin: 09/04/24 08:53 Dose: 240 mg Documented By: ANNIE Escitalopram Oxalate (Escitalopram Oxalate 20 Mg Tablet) 20 mg PO DAILY [facility] [place] Last Admin: 09/04/24 08:53 Dose: 20 mg Documented By: ANNIE Fluticasone Propionate (Fluticasone Propionate Nasal 16 Gm [place]) 1 spray NOSTRIL-B DAILY PRN PRN Reason: allergies Last Admin: 09/03/24 09:41 Dose: 1 spray Documented By: ELISEO Fluticasone/Umeclidinium/Vilanterol (Fluticasone/Umeclidinium/Vilanterol 100/62.5/25 Blst.W.Dev) 1 puff INHALE RDAILY [facility] [place] Last Admin: 09/04/24 07:35 Dose: 1 puff Documented By: ALEX Furosemide (Furosemide 40 Mg/4 Ml Vial) 40 mg IVPUSH BID@0900,1800 [facility] [place]; Protocol Last Admin: 09/04/24 08:52 Dose: 40 mg Documented By: ANNIE Gabapentin (Gabapentin 300 Mg Capsule) 300 mg PO BEDTIME [facility] [place] Last Admin: 09/03/24 21:20 Dose: 300 mg Documented By: CURT Guaifenesin (Guaifenesin [place] 600 Mg Tab.Er.12h) 600 mg PO BID [facility] [place] Last Admin: 09/04/24 08:53 Dose: 600 mg Documented By: ANNIE Guaifenesin/Codeine Phosphate (Guaifen/Codeine Sf 200/20/10ml 10 Ml Liquid) 10 ml PO Q6H PRN PRN Reason: cough Last Admin: 09/03/24 23:10 Dose: 10 ml Documented By: CURT Azithromycin 500 mg/ Sodium (Chloride) 250 mls @ 125 mls/hr IV Q24H [facility] [place] Last Admin: 09/04/24 08:46 Dose: 125 mls/hr Documented By: ANNIE Ipratropium [place] (Ipratropium [place] Chan 0.06 % 15 Ml [place]) 2 spray NOSTRIL-B TID [facility] [place] Last Admin: 09/03/24 20:06 Dose: Not Given Documented By: CURT Non-Admin Reason: Med Not Available Methylprednisolone Sodium Succinate (Methylprednisolone Sod Succ 40 Mg/Ml Vial) 40 mg IVPUSH Q12H [facility] [place] Last Admin: 09/04/24 08:52 Dose: 40 mg Documented By: ANNIE Montelukast Sodium (Montelukast Sodium 10 Mg Tablet) 10 mg PO DAILY [facility] Last Admin: 09/04/24 08:53 Dose: 10 mg Documented By: ANNIE Naloxone HCl (Naloxone Hcl 0.4 Mg/Ml Vial) 0.04 mg IVPUSH Q5M PRN PRN Reason: Excessive sedation or RR < 8 Naloxone HCl (Naloxone Hcl 0.4 Mg/Ml Vial) 0.04 mg IVPUSH Q5M PRN PRN Reason: Excessive sedation or RR < 8 Ondansetron HCl (Ondansetron Hcl 4 Mg/2 Ml Vial) 4 mg IVPUSH Q8H PRN PRN Reason: Nausea and Vomiting Last Admin: 09/03/24 11:36 Dose: 4 mg Documented By: ELISEO Pantoprazole Sodium (Pantoprazole Sodium 40 Mg/10 Ml Vial) 40 mg IVPUSH BID@0630,1630 [facility] [place] Last Admin: 09/04/24 05:30 Dose: 40 mg Documented By: LIA-PARVIZZEConsuelo Ropinirole HCl (Ropinirole Hcl 0.25 Mg Tablet) 0.25 mg PO BID [facility] [place] Last Admin: 09/04/24 08:53 Dose: 0.25 mg Documented By: ANNIE Simethicone (Simethicone 80 Mg Tab.Chew) 80 mg PO QIDWMHS PRN PRN Reason: Gas Sodium Chloride (0.9 % Sodium Chloride Flush 3 Ml Syringe) 3 ml IVFLUSH QSHIFT [facility] [place] Last Admin: 09/04/24 08:53 Dose: 3 ml Documented By: ANNIE Trazodone HCl (Trazodone Hcl 25 Mg Halftab) 25 mg PO BEDTIME MRX1 PRN PRN Reason: Insomnia Labs 09/04/24 10:39 09/04/24 06:01 Labs: Laboratory Results - last 24 hr 09/03/24 09/04/24 09:16 06:01 Anion Gap 11 L 13 Estim Creat Clear Calc 65.9 66.9 Estimated GFR > 60 > 60 Random Glucose 114 198 H Calcium 9.3 8.4 D B-Natriuretic Peptide 345 H 702 H Assessment and Plan (1) Acute blood loss anemia: Status: Acute Plan 83-year-old female with a PMH significant for?chronic hypoxemic respiratory failure, COPD on chronic 2 L home O2, paroxysmal AFib on Eliquis, HLD, HTN, venous insufficiency with chronic lower leg edema, pulmonary hypertension, and anxiety who presented to the ED with?SOB, PRADO, and cough x2 weeks found to have acute blood loss anemia likely secondary to UGIB in a pt on anticoagulation. Acute on chronic resp failure secondary to CAP, COPD exacerbation with cough and HFpEF repeat CXR showing consolidation continue rocephin, axithromycin solumedrol, duonebs mucinex for dry cough IV lasix 40 BID Acute on chronic iron def anemia Iron 8 s/p IV iron x3 days as above recheck CBC and iron today heme consult Acute on chronic symptomatic blood loss anemia due to iron deficiency and suspected GI bleed. Resolved Follows in the outpatient setting with Hematology for chronic anemia H&H 4.9/18.2 on admission, stool positive for occult blood, concerning for UGIB continue IV PPI Hold Eliquis Status post EGD and colonoscopy no source of anemia or upper GI bleeding plan for CT enterography today s/p total 4 units of blood and IV iron x 3 days Hypokalemia/hypomagnesemia. Resolved due to decreased po intake and lasix replace and follow electrolytes Acute hypoxia due to acute on chronic HFpEF. Resolved likely from IV fluids treated with IV lasix continue po lasix Paroxysmal AFib Continue diltiazem Hold Eliquis HLD Continue statin mood continue home SSRI and xanax Full Code DVT Prophylaxis: Pneumatic compression due to acute blood loss anemia disposition -PT rec home with services Quality Stroke Does the patient have a stroke diagnosis?: No VTE Prior VTE?: No VTE Risk Level:: Medical - moderate - high VTE Device Contraindication: N/A - Device Ordered VTE Drug Contraindication: Treatment Not Indicated
--- NOTE | 2024-09-04 10:59 | MHC.CM.PN ---
Per ROUNDS discussion, Patient is not yet medically cleared for dc (H&H low, IV Lasix); PT is recommending home with services and CM will continue to follow.
[2024-09-04 11:27] LABS: Hematocrit 31.9 % (37.0-47.0); Hemoglobin 9.1 g/dl (12.0-16.0); Mean Corpuscular HGB Conc 28.5 g/dl (31.0-35.0); Mean Corpuscular Hemoglobin 23.9 pg (27.0-33.0); Mean Corpuscular Volume 83.9 fL (80.0-98.0); Mean Platelet Volume 10.3 fL (9.4-12.3); Platelet Count 287 X10*3/uL (160-400); White Blood Count 6.4 X10*3/uL (4.8-10.8)
[2024-09-04 11:41] LABS: Iron 51 mcg/dL (30-160); Percent Iron Saturation 16 % (15-50); Total Iron Binding Capacity 322 mcg/dL (228-428); Unsaturated Iron Binding 271 ug/dL
--- NOTE | 2024-09-04 12:29 | PM.HEMONCCN ---
Subjective - Subjective Chief complaint: Anemia Patient: known to practice within the last 3 years Consult date: 09/04/24 Primary Care Provider: Lizandro Gibbs MD [employer] Utilized?: No - Slovenian Speaking HPI - Consult Narrative Reason for consult: Anemia Narrative: Tanya Joya is a 83 year old female with history of iron-deficiency anemia, COPD, hypertension, paroxysmal AFib on Eliquis who presented to ED on 08/25/2024 with shortness of breath, PRADO and cough for 2 weeks. Patient has had dark-colored stools for about 2 weeks prior to admission but no hematochezia or hematemesis. She was on oral iron for a few months which was discontinued in April 2024. In the ED patient was noted to have an H&H of 4.9/18.2. CT abdomen/pelvis showed no acute findings other than ventral hernia with mesh. Previously she had evidence of iron-deficiency with a ferritin of 12. She had normal vitamin B12 and folate levels, normal serum immunofixation and workup for anemia. Review of Systems - Constitutional Reports as per HPI, Reports fatigue, Reports malaise - Cardiovascular Reports no additional cardiovascular complaints, Denies chest pain with activity - Respiratory Reports no additional respiratory complaints - Neurologic Denies memory loss, Denies seizure-like activity PMFSH Medical History: Medical History (Last Reviewed 09/01/24 @ 07:38 by Mary Kay Stephenson, PT) Aortic valve calcification Atrial fibrillation with rapid ventricular response Chronic respiratory failure COPD (chronic obstructive pulmonary disease) Cough Lung nodule Mitral annular calcification PAF (paroxysmal atrial fibrillation) Pleural effusion Pneumonia Pulmonary hypertension Sinusitis Family History: Family History (Last Reviewed 08/31/24 @ 12:37 by Annette Lino MD) Brother Myocardial infarction Father Stroke Maternal Grandmother Bone cancer Surgical History: Surgical History (Last Reviewed 09/01/24 @ 07:38 by Mary Kay Stephenson, PT) No pertinent past surgical history Social History: Social History (Last Reviewed 08/31/24 @ 12:37 by Annette Lino MD) Living Situation History: Household Members: Children Household Members Other:: Daughter and family Housing: House Are you a primary care clinician to a significant other at home: No Do you presently have visiting nurse or other home services: No Tobacco History: Patient Tobacco Use Status: Former Tobacco user Tobacco use type: Cigarette e-Cigarette/Vaping Use: Never Used Second Hand Smoke Exposure: No Advance Directives: Advance Directives Date on File: 06/21/23 Occupation Assessmet: service: No Current occupational status: retired Home Medications and Allergies Current Medications: Current Medications Acetaminophen (Acetaminophen 325 Mg Tablet) 650 mg PO Q6H PRN PRN Reason: Pain, Mild 1-3,fever,headache Last Admin: 09/03/24 23:10 Dose: 650 mg Albuterol Sulfate (Albuterol Sulfate (0.083%) 2.5 Mg/3 Ml Vial.Neb) 2.5 mg INHALE RQ4H [facility] Last Admin: 09/04/24 11:10 Dose: 2.5 mg Ceftriaxone Sodium (Ceftriaxone Sodium 1 Gm Vial) 1 gm IVPUSH Q24H [facility] Last Admin: 09/04/24 08:46 Dose: 1 gm Diltiazem HCl (Diltiazem Hcl Cd 240 Mg Cap.Er.Deg) 240 mg PO DAILY [facility]; Protocol Last Admin: 09/04/24 08:53 Dose: 240 mg Escitalopram Oxalate (Escitalopram Oxalate 20 Mg Tablet) 20 mg PO DAILY [facility] Last Admin: 09/04/24 08:53 Dose: 20 mg Fluticasone Propionate (Fluticasone Propionate Nasal 16 Gm [place]) 1 spray NOSTRIL-B DAILY PRN PRN Reason: allergies Last Admin: 09/03/24 09:41 Dose: 1 spray Fluticasone/Umeclidinium/Vilanterol (Fluticasone/Umeclidinium/Vilanterol 100/62.5/25 Blst.W.Dev) 1 puff INHALE RDAILY [facility] Last Admin: 09/04/24 07:35 Dose: 1 puff Furosemide (Furosemide 40 Mg/4 Ml Vial) 40 mg IVPUSH BID@0900,1800 [facility]; Protocol Last Admin: 09/04/24 08:52 Dose: 40 mg Gabapentin (Gabapentin 300 Mg Capsule) 300 mg PO BEDTIME [facility] Last Admin: 09/03/24 21:20 Dose: 300 mg Guaifenesin (Guaifenesin [place] 600 Mg Tab.Er.12h) 600 mg PO BID [facility] Last Admin: 09/04/24 08:53 Dose: 600 mg Guaifenesin/Codeine Phosphate (Guaifen/Codeine Sf 200/20/10ml 10 Ml Liquid) 10 ml PO Q6H PRN PRN Reason: cough Last Admin: 09/03/24 23:10 Dose: 10 ml Azithromycin 500 mg/ Sodium (Chloride) 250 mls @ 125 mls/hr IV Q24H [facility] Last Admin: 09/04/24 08:46 Dose: 125 mls/hr Ipratropium [place] (Ipratropium [place] Chan 0.06 % 15 Ml [place]) 2 spray NOSTRIL-B TID [facility] Last Admin: 09/03/24 21:12 Dose: Not Given Methylprednisolone Sodium Succinate (Methylprednisolone Sod Succ 40 Mg/Ml Vial) 40 mg IVPUSH Q12H [facility] Last Admin: 09/04/24 08:52 Dose: 40 mg Montelukast Sodium (Montelukast Sodium 10 Mg Tablet) 10 mg PO DAILY [facility] Last Admin: 09/04/24 08:53 Dose: 10 mg Naloxone HCl (Naloxone Hcl 0.4 Mg/Ml Vial) 0.04 mg IVPUSH Q5M PRN PRN Reason: Excessive sedation or RR < 8 Naloxone HCl (Naloxone Hcl 0.4 Mg/Ml Vial) 0.04 mg IVPUSH Q5M PRN PRN Reason: Excessive sedation or RR < 8 Ondansetron HCl (Ondansetron Hcl 4 Mg/2 Ml Vial) 4 mg IVPUSH Q8H PRN PRN Reason: Nausea and Vomiting Last Admin: 09/03/24 11:36 Dose: 4 mg Pantoprazole Sodium (Pantoprazole Sodium 40 Mg/10 Ml Vial) 40 mg IVPUSH BID@0630,1630 [facility] Last Admin: 09/04/24 05:30 Dose: 40 mg Ropinirole HCl (Ropinirole Hcl 0.25 Mg Tablet) 0.25 mg PO BID [facility] Last Admin: 09/04/24 08:53 Dose: 0.25 mg Simethicone (Simethicone 80 Mg Tab.Chew) 80 mg PO QIDWMHS PRN PRN Reason: Gas Sodium Chloride (0.9 % Sodium Chloride Flush 3 Ml Syringe) 3 ml IVFLUSH QSHIFT [facility] Last Admin: 09/04/24 08:53 Dose: 3 ml Trazodone HCl (Trazodone Hcl 25 Mg Halftab) 25 mg PO BEDTIME MRX1 PRN PRN Reason: Insomnia Home Medications ?Medication ?Instructions ?Recorded ?Confirmed ?Type albuterol sulfate 2.5 mg/3 mL 2.5 mg inhalation Q4H PRN Wheezing 03/07/21 08/25/24 History (0.083 %) solution for nebulization famotidine 20 mg tablet 20 mg PO DAILY@0800 03/07/21 08/25/24 History pravastatin 40 mg tablet 40 mg PO DAILY@0800 03/07/21 08/25/24 History turmeric root extract 500 mg 500 mg PO DAILY@0800 09/19/21 08/25/24 History capsule Oxygen Home Use 09/22/22 04/03/24 History nebulizers 09/22/22 04/03/24 History alprazolam 0.25 mg tablet 0.25 mg PO DAILY PRN Anxiety 08/26/23 08/25/24 History apixaban 5 mg tablet (Eliquis) 5 mg PO BID 08/26/23 08/25/24 History citalopram 20 mg tablet 40 mg PO DAILY 08/26/23 08/25/24 History fluticasone propionate 50 50 mcg intranasal DAILY PRN 08/26/23 08/25/24 History mcg/actuation nasal allergies spray,suspension (Flonase Allergy Relief) furosemide 40 mg tablet 40 mg PO BID 08/26/23 08/25/24 History ropinirole 0.25 mg tablet 0.25 mg PO BID 08/26/23 08/25/24 History trazodone 50 mg tablet 50 mg PO BEDTIME PRN sleep 08/14/24 08/25/24 History albuterol sulfate 90 mcg/actuation 2 puff inhalation Q4H PRN 08/25/24 08/25/24 History aerosol inhaler shortness of breath or wheezing biotin 10,000 mcg chewable tablet 10,000 mcg PO DAILY 08/25/24 08/25/24 History (Hair, Skin and Nails (biotin)) calcium 600 mg (as 1 tab PO DAILY 08/25/24 08/25/24 History carbonate)-vitamin D3 5 mcg (200 unit) tablet fluticasone fur. 100 mcg-umeclid 1 inh PO DAILY 08/25/24 08/25/24 History 62.5 mcg-vilant 25 mcg inhalat.powder (Trelegy Ellipta) psyllium husk 0.4 gram capsule 0.4 g PO DAILY 08/25/24 08/25/24 History (Metamucil) Allergies Allergy/AdvReac Type Severity Reaction Status Date / Time No Known Allergies Allergy Verified 08/25/24 03:57 Physical Exam Vital signs: Vital Signs Temp 98.9 F 09/04/24 11:01 Pulse 80 09/04/24 11:10 Resp 16 09/04/24 11:10 BP 123/58 L 09/04/24 11:01 Pulse Ox 96 09/04/24 11:57 O2 Del Method Nasal Cannula 09/04/24 11:01 O2 Flow Rate 2 09/04/24 11:01 Intake & Output 09/03/24 09/04/24 09/04/24 18:59 06:59 18:59 Intake Total 990 / 990 Output Total 250 / 650 400 / 650 Balance 740 / 340 -400 / 340 Urine Output (Average ml/kg/hr) 0.29 0.46 Intake: Intake, Oral Amount 740 / 740 Intake, IV Amount 250 / 250 Azithromycin 500 mg In 0.9 % 250 / 250 Sodium Chloride 250 ml @ 125 mls/hr IV Q24H [facility] Rx#: [id number] Output: Output, Urine Amount 250 / 650 400 / 650 Other: Meal Refused No NPO No Breakfast % Eaten 100% Lunch % Eaten 100% Eating (Feeding) Ability Independent Number of Unmeasured Voids 3 2 Number of Bowel Movements 0 Urine Bedside Commode [place] Urine Color Yellow Last Bowel Movement 09/01/24 Weight 73.028 kg - Constitutional Present: no acute distress - Routine HEENT Exam Head: Present: normal inspection Eye: Present: EOMI, conjunctivae pale - Routine Neck Exam Present: supple. Absent: lymphadenopathy - Routine Respiratory Exam Absent: accessory muscle use - Routine Cardiovascular Exam Cardiovascular: Present: S1, S2 - Routine Abdominal Exam Present: soft Hem/Onc Consult Result - Labs CBC & Chem 7: 09/04/24 10:39 09/04/24 06:01 Labs: Short CBC 09/04/24 Range/Units 10:39 WBC 6.4 (4.8-10.8) X10*3/uL Hgb 9.1 L (12.0-16.0) g/dl Hct 31.9 L (37.0-47.0) % Plt Count 287 (160-400) X10*3/uL BMP 09/04/24 06:01 Sodium 140 Potassium 4.0 Chloride 98 Carbon Dioxide 33 H BUN 17 H Creatinine 0.66 Calcium 8.4 D Assessment and Plan Patient Active problem list reviewed?: Yes (1) Microcytic anemia Status: Chronic Assessment and plan: 1. This is a 83-year-old woman with iron-deficiency anemia which has been worsening since 2022. She was admitted to [facility] on 08/25/2024 with hemoglobin of 4.9 gram/dL and heme-positive stools. She received 4 units blood transfusion. EGD revealed gastritis and gastric polyps. CT abdomen/pelvis showed no acute findings. Colonoscopy performed 08/31/2024 showed hemorrhoids and old blood in terminal ileum. Her large internal hemorrhoids with stigmata of recent bleeding. Blood work showed normal kidney and liver functions, serum iron of a with a transferrin saturation of 3%. No evidence of hemolysis, no constitutional symptoms to suggest underlying malignancy. Continue with iron replacement therapy. She responded well to Venofer. This should be continued as outpatient. She can follow up with Dr. Gloria upon discharge. I thank you for the referral. - Time Spent With Patient Time Spent with Patient (in minutes): 15
[2024-09-04] MEDS: Gabapentin 300 MG CAPSULE PO (21:20)
[2024-09-05] VITALS (8 sets, daily range): BP systolic 118–147; BP diastolic 54–65; PULSE 76–86; RESP 16–18; TEMP 36.2–36.9; O2SAT 92–96
[2024-09-05] MEDS: Albuterol Sulfate (0.083%) 2.5 MG/3 ML VIAL.NEB INHALE ×3 (05:40→11:39)
[2024-09-05] MEDS: Pantoprazole Sodium 40 MG/10 ML VIAL IVPUSH (05:51)
--- NOTE | 2024-09-05 07:46 | PM.DS ---
DS: Providers Provider Date of Service: 09/05/24 Date of admission: 08/25/24 07:06 Date of discharge: 09/05/24 Primary care physician: Lizandro Gibbs MD Consults: 08/25/24 07:00 Consult to Gastroenterology Routine Consulting Provider: Dionicio Velez Reason for consultation: ?UGIB on Eliquis 08/26/24 15:14 Consult to Pulmonology Routine Consulting Provider: [facility] Pulmonology Services Reason for consultation: request for pulmonary evaluation prior to procedure on Wednesday Has provider been notified: No 09/04/24 09:35 Consult to Hematology / Oncology Routine Consulting Provider: [facility] Oncology/Hematology Reason for consultation: iron def anemia DS: Diagnosis Discharge Diagnosis (1) Microcytic anemia: Status: Chronic DS: Summary Hospital Course Hospital Course: History and physical as per admitting provider. Pt is an 83-year-old female with a PMH significant for?chronic hypoxemic respiratory failure, COPD on chronic 2 L home O2, paroxysmal AFib on Eliquis, HLD, HTN, venous insufficiency with chronic lower leg edema, pulmonary hypertension, and anxiety who presents to the ED with?SOB, PRADO, and cough x2 weeks, worse the past few days. Pt reports cough has been occasionally productive of whitish sputum. Pt initially presented to Dr. Brito in pulmonology who started her on Levaquin and steroids. Symptoms did not resolve however pt has continued to feel fatigued, weak, and unable to walk. Reports has had dark-colored stools for the past 1-2 weeks. Pt reports colorless similar to what she used to experience on iron supplementation which she stopped in April of last year. Has also noted increasing lower leg edema for the past few days. Some nausea but no vomiting. No fever or chills. Denies chest pain/pressure, palpitations. In the ED pt was tachypneic up to 24, and with soft BP as low as 113/33. Labs were significant for microcytic anemia of H&H 4.9/18.2, troponin 18.9, BNP 321, and stool positive for occult blood. Tested negative for flu, COVID, and RSV. CXR showed mild basilar subsegmental atelectasis or infiltrates. CT of abdomen and pelvis found no acute finding to explain anemia and no findings of occult malignancy. EKG demonstrated normal sinus rhythm without evidence of significant ST elevations or depressions. Pt was treated with Protonix and transfused 2 units PRBCs. Pt will be admitted to the hospital for treatment and further evaluation of acute blood loss anemia likely secondary to UGIB in a pt on anticoagulation 83-year-old woman treated for acute on chronic symptomatic blood loss anemia and iron-deficiency anemia. Patient presented with hemoglobin of 4.9 and hematocrit of 18.2 with stool positive for occult blood. She was started on IV ppi, Eliquis was held. She had EGD and colonoscopy with no source found for anemia with some old blood found in the small bowel. CT enterography did not show anything obvious for blood loss. Her iron though was noted to be 8 and she received 3 days of IV iron which repeat iron was 51. She was seen evaluated by Hematology she should follow up outpatient and it may be helpful if she starts with iron infusions. Her H&H has remained stable and she has had no further bleeding. She developed some shortness of breath and cough after receiving IV fluids and was noted to be in heart failure and treated with IV Lasix. Her cough continued and repeat chest x-ray showed consolidation so Rocephin and azithromycin was started with Mucinex for dry cough. She was also started on Solu-Medrol and scheduled DuoNebs for likely COPD exacerbation as well. She was chronically on oxygen at home and should continue. She had some electrolyte abnormalities including hypokalemia and hypomagnesemia which were addressed and likely related to diuresis. These did resolved with replacement. Patient was seen evaluated by Physical therapy who recommended short-term rehab however patient and her daughter stated that she did not need to go to rehab and she had enough support at home. Paroxysmal AFib. Continue diltiazem and may resume Eliquis. HLD. Continue statin mood. continue home SSRI and xanax Time Attestation Discharge Coordination Time (in mins): 45 Quality: Safe Use of Opioids Does Pt have an Active Cancer Diagnosis on the Problem List?: No Quality: Stroke Does the patient have a stroke diagnosis?: No Physical Exam Vital Signs: Vital Signs: Last Vital Signs Temp 98.5 F 09/05/24 07:25 Pulse 85 09/05/24 07:25 Resp 16 09/05/24 07:25 BP 140/65 H 09/05/24 07:25 Pulse Ox 95 09/05/24 07:28 O2 Del Method Nasal Cannula 09/05/24 07:28 O2 Flow Rate 2 09/05/24 07:25 Oxygen Flow Rate 2 09/05/24 07:28 BMI result Body Mass Index 26.8 Appearing in no acute distress head is normocephalic atraumatic eyes pupils are PERRLA sclera is anicteric mouth throat mucous membranes are intact and moist neck is supple no lymphadenopathy, no JVD noted lung sounds rhonchi heart regular rate rhythm, clear S1, S2 positive bowel sounds, abdomen is soft, nontender neuro patient is alert x3, no focal deficits DS: Data Data Completed and Pending Completed studies during hospitalization [Text1]: Pending at discharge 08/28/24 10:10 Surgical [PTH] Routine Labs on day of discharge: Laboratory Results - last 24 hr 09/04/24 10:39 WBC 6.4 RBC 3.80 L Hgb 9.1 L Hct 31.9 L MCV 83.9 MCH 23.9 L MCHC 28.5 L RDW Not Reportable Plt Count 287 MPV 10.3 Absolute Nucleated RBC 0.000 Nucleated RBC % (auto) 0.0 Iron 51 TIBC 322 % Saturation 16 Unsat Iron Binding 271 Discharge Plan Discharge Anticipated Discharge Date/Time: 09/05/24 07:41 Patient Disposition: Home, Self-Care Discharge Diagnosis: Acute on chronic respiratory failure secondary to community-acquired pneumonia, COPD exacerbation and heart failure preserved ejection fraction Acute on chronic iron-deficiency anemia Acute on chronic symptomatic blood loss anemia Hypokalemia Hypomagnesemia Referrals: Lynn Gloria MD [Physician] - 1 Week Lizandro iGbbs MD [Primary Care Provider] - 1 Week Discharge Medications: New prednisone 10 mg tablet See Taper PO DIRECTED Qty: 30 0RF Taper: Prednisone 40 mg daily for 3 Days and 0 Hour 30 mg daily for 3 Days and 0 Hour 20 mg daily for 3 Days and 0 Hour 10 mg daily for 3 Days and 0 Hour Rx Instructions: see taper instructions levofloxacin 500 mg tablet 500 mg PO DAILY Qty: 4 0RF guaifenesin [Mucinex] 600 mg Tablet Extended Release 12hr 600 mg PO BID Qty: 10 0RF ferrous sulfate 325 mg (65 mg iron) tablet 325 mg PO DAILY Qty: 30 0RF Continued diltiazem HCl 240 mg capsule,extended release 24hr 240 mg PO DAILY Qty: 90 3RF montelukast 10 mg tablet 10 mg PO DAILY Qty: 30 0RF gabapentin 300 mg capsule 300 mg PO BEDTIME Qty: 30 6RF furosemide 40 mg tablet 40 mg PO BID Eliquis 5 mg tablet 5 mg PO BID alprazolam 0.25 mg tablet 0.25 mg PO DAILY PRN (Reason: Anxiety) citalopram 20 mg tablet 40 mg PO DAILY ropinirole 0.25 mg tablet 0.25 mg PO BID fluticasone propionate [Flonase Allergy Relief] 50 mcg/actuation [place],Suspension 50 mcg INTRANASAL DAILY PRN (Reason: allergies) ascorbic acid (vitamin C) [Vitamin C] 500 mg Tablet,Chewable 500 mg PO DAILY Qty: 90 3RF acetaminophen 500 mg tablet 1,000 mg PO TID PRN (Reason: pain) Qty: 20 0RF calcium carbonate-vitamin D3 600 mg-5 mcg (200 unit) Tablet 1 tab PO DAILY psyllium husk [Metamucil] 0.4 gram Capsule 0.4 g PO DAILY Hair, Skin and Nails (biotin) 10,000 mcg Tablet,Chewable 10,000 mcg PO DAILY albuterol sulfate 90 mcg/actuation HFA aerosol inhaler 2 puff inhalation Q4H PRN (Reason: shortness of breath or wheezing) Trelegy Ellipta 100-62.5-25 mcg blister with device 1 inh PO DAILY albuterol sulfate 2.5 mg /3 mL (0.083 %) solution for nebulization 2.5 mg inhalation Q4H PRN (Reason: Wheezing) famotidine 20 mg tablet 20 mg PO DAILY@0800 pravastatin 40 mg tablet 40 mg PO DAILY@0800 (DME) nebulizers [facility] [place] See Rx Instructions .Route Rx Instructions: As directed (DME) Oxygen Home Use Kit See Rx Instructions .Route Rx Instructions: As directed turmeric root extract 500 mg capsule 500 mg PO DAILY@0800 trazodone 50 mg tablet 50 mg PO BEDTIME PRN (Reason: sleep) codeine-guaifenesin 10-100 mg/5 mL liquid 10 ml PO Q6H PRN (Reason: cough) 10 Days Qty: 300 0RF ipratropium bromide 42 mcg (0.06 %) spray,non-aerosol 2 spray intranasal TID 30 Days Qty: 15 6RF Rx Instructions: administer into each nostril mupirocin 2 % ointment 1 appl topical TID 10 Days Qty: 22 0RF Discontinued levofloxacin 500 mg tablet 500 mg PO DAILY 8 Days Qty: 8 0RF Discharge Orders: Discharge Order (Routine); Ordered 09/05/24 Ordered By: Tiffanie Brito Diet: Advance to usual diet Activity on Discharge: As tolerated Stand Alone Forms: Patient Portal Discharge page Print Language: French Care Plan Goals: continue with your home oxygen Follow-up with Dr. Gloria for further workup of iron-deficiency anemia Health Concerns: Acute on chronic respiratory failure secondary to community-acquired pneumonia, COPD exacerbation and heart failure preserved ejection fraction Acute on chronic iron-deficiency anemia Acute on chronic symptomatic blood loss anemia Hypokalemia Hypomagnesemia Plan of Treatment: Follow-up with primary care provider as needed Take all medications as prescribed Continue using nebulizer machine every 4 hours for the next 2 days Complete steroid taper Complete antibiotic treatment for pneumonia Assessment: See discharge summary
[2024-09-05] MEDS: Fluticasone/Umeclidinium/Vilanterol 100/62.5/25 BLST.W.DEV 1 PUFF INHALE (07:50)
[2024-09-05] MEDS: dilTIAZem HCL CD 240 MG CAP.ER.DEG PO (09:24)
[2024-09-05] MEDS: 0.9 % Sodium Chloride Flush 3 ML SYRINGE IVFLUSH (09:24)
[2024-09-05] MEDS: guaiFENesin LA 600 MG TAB.ER.12H PO (09:25)
[2024-09-05] MEDS: Furosemide 40 MG/4 ML VIAL IVPUSH (09:25)
[2024-09-05] MEDS: cefTRIAXone sodium 1 GM VIAL IVPUSH (09:25)
[2024-09-05] MEDS: methylPREDNISolone Sod Succ 40 MG/ML VIAL IVPUSH (09:25)
[2024-09-05] MEDS: Montelukast Sodium 10 MG TABLET PO (09:25)
[2024-09-05] MEDS: Escitalopram Oxalate 20 MG TABLET PO (09:25)
[2024-09-05] MEDS: Azithromycin 500 MG in 0.9 % Sodium Chloride 250 ML 125 MG IV (09:26)
--- NOTE | 2024-09-05 09:41 | MHC.CM.PN ---
Second IMM given 3. Pt is medically cleared for discharge home self-care, with resumption of previous home O2, pts daughter will transport her home today.
[2024-09-05] MEDS: guaiFEN/Codeine SF 200/20/10ML 10 ML LIQUID PO (09:48)
[2024-09-05] MEDS: Fluticasone Propionate Nasal 16 GM SPRAY 1 SPRAY NOSTRIL-B (12:01)
[2024-09-05] MEDS: rOPINIRole HCL 0.25 MG TABLET PO (12:02)
== END 2024-09-05 13:45 | disposition home or self-care (01) | DRG 377 ==
LOC: HO.ED 07:07 → HO.EDOVER 07:15 → HO.IMC 19:24
PROVIDERS: Internal Medicine; Internal Medicine Gastroenterology; Physician Assistant Medical; Admitting Provider Student in an Organized Health Care Education/Training Program; Emergency Provider Emergency Medicine Emergency Medical Services; PCP Internal Medicine; Visit Provider Nurse Practitioner Acute Care
PROC: 0DJ08ZZ Inspection of Upper Intestinal Tract, Via Natural or Artificial Opening Endoscopic (ICD-10-PCS; CPT 43235; principal; 2024-08-28 10:10)
PROC: 0DJD8ZZ Inspection of Lower Intestinal Tract, Via Natural or Artificial Opening Endoscopic (ICD-10-PCS; CPT 45378; principal; 2024-08-31 12:40)
DX: K29.71 Gastritis, unspecified, with bleeding (principal); I50.33 Acute on chronic diastolic (congestive) heart failure; J18.9 Pneumonia, unspecified organism; J96.21 Acute and chronic respiratory failure with hypoxia; D62 Acute posthemorrhagic anemia; J98.11 Atelectasis; J44.0 Chronic obstructive pulmonary disease with (acute) lower respiratory infection; J44.1 Chronic obstructive pulmonary disease with (acute) exacerbation; K57.31 Diverticulosis of large intestine without perforation or abscess with bleeding; K64.8 Other hemorrhoids; E78.5 Hyperlipidemia, unspecified; E87.6 Hypokalemia; E83.42 Hypomagnesemia; F39 Unspecified mood [affective] disorder; K31.7 Polyp of stomach and duodenum; I48.0 Paroxysmal atrial fibrillation; I27.20 Pulmonary hypertension, unspecified; Z20.822 Contact with and (suspected) exposure to COVID-19; Z99.81 Dependence on supplemental oxygen; Z79.01 Long term (current) use of anticoagulants; Z79.899 Other long term (current) drug therapy
CPT/HCPCS: 0241U; 36415; 71045; 74177; 80048; 80053; 82272; 83540; 83735; 83880; 84145; 84484; 85014; 85018; 85025; 85027; 86850; 86900; 86901; 86923; 88305; 88313; 88342; 93005; 97162; 99285; J0456; J0696; J1100; J1756; J1940; J2003; J2250; J2405; J2470; J2704; J2919; J3475; J7120; P9016; Q9967

== ENCOUNTER → 2024-08-25 04:06 | Outpatient (BNV) | payer OTHER, SELFPAY | PROVIDERS: Admitting Provider Student in an Organized Health Care Education/Training Program; Emergency Provider Emergency Medicine Emergency Medical Services; PCP Internal Medicine; Visit Provider Internal Medicine | DX: R06.09 Other forms of dyspnea (principal); R94.31 Abnormal electrocardiogram [ECG] [EKG] | CPT/HCPCS: 93010 ==

== ENCOUNTER → 2024-08-25 04:12 | Outpatient (BNV) | payer OTHER, SELFPAY | PROVIDERS: Emergency Provider Emergency Medicine Emergency Medical Services; PCP Internal Medicine; Visit Provider General Practice | DX: R10.9 Unspecified abdominal pain (principal); D50.9 Iron deficiency anemia, unspecified; R06.02 Shortness of breath; R05.9 Cough, unspecified | CPT/HCPCS: 71045; 74177 ==

== ENCOUNTER 2024-08-25 07:06 | Outpatient (BNV) | payer OTHER, SELFPAY | END 2024-09-02 13:03 | PROVIDERS: Admitting Provider Student in an Organized Health Care Education/Training Program; Emergency Provider Emergency Medicine Emergency Medical Services; PCP Internal Medicine; Visit Provider Radiology Diagnostic Radiology | DX: R05.9 Cough, unspecified (principal); I51.7 Cardiomegaly; J81.0 Acute pulmonary edema; J90 Pleural effusion, not elsewhere classified | CPT/HCPCS: 71045 ==

== ENCOUNTER 2024-08-25 07:06 | Outpatient (BNV) | payer OTHER, SELFPAY | END 2024-09-01 12:01 | PROVIDERS: Admitting Provider Student in an Organized Health Care Education/Training Program; Emergency Provider Emergency Medicine Emergency Medical Services; PCP Internal Medicine; Visit Provider Specialist | DX: D62 Acute posthemorrhagic anemia (principal); K43.9 Ventral hernia without obstruction or gangrene; J91.8 Pleural effusion in other conditions classified elsewhere | CPT/HCPCS: 74177 ==

== ENCOUNTER 2024-08-25 07:06 | Outpatient (BNV) | payer OTHER, SELFPAY | END 2024-08-29 10:10 | PROVIDERS: Admitting Provider Student in an Organized Health Care Education/Training Program; Emergency Provider Emergency Medicine Emergency Medical Services; PCP Internal Medicine; Visit Provider Radiology Diagnostic Radiology | DX: J43.2 Centrilobular emphysema (principal) | CPT/HCPCS: 71045 ==

== ENCOUNTER → 2024-08-25 07:06 | Outpatient (BNV) | payer OTHER, SELFPAY | PROVIDERS: Admitting Provider Student in an Organized Health Care Education/Training Program; Emergency Provider Emergency Medicine Emergency Medical Services; PCP Internal Medicine; Visit Provider Internal Medicine Gastroenterology | DX: D62 Acute posthemorrhagic anemia (principal); K31.7 Polyp of stomach and duodenum; D13.2 Benign neoplasm of duodenum; K29.70 Gastritis, unspecified, without bleeding | CPT/HCPCS: 43239; 99222 ==

== ENCOUNTER → 2024-08-25 07:06 | Outpatient (BNV) | payer OTHER, SELFPAY | PROVIDERS: Admitting Provider Student in an Organized Health Care Education/Training Program; Emergency Provider Emergency Medicine Emergency Medical Services; PCP Internal Medicine; Visit Provider Internal Medicine | DX: D50.9 Iron deficiency anemia, unspecified (principal) | CPT/HCPCS: 99222 ==

== ENCOUNTER → 2024-08-25 07:06 | Outpatient (BNV) | payer OTHER, SELFPAY | PROVIDERS: Admitting Provider Student in an Organized Health Care Education/Training Program; Emergency Provider Emergency Medicine Emergency Medical Services; PCP Internal Medicine; Visit Provider Physician Assistant Medical | DX: D62 Acute posthemorrhagic anemia (principal) | CPT/HCPCS: 99223; 99232; 99499 ==

== ENCOUNTER → 2024-08-25 07:06 | Outpatient (BNV) | payer OTHER, SELFPAY | PROVIDERS: Admitting Provider Student in an Organized Health Care Education/Training Program; Emergency Provider Emergency Medicine Emergency Medical Services; PCP Internal Medicine; Visit Provider Internal Medicine Pulmonary Disease | DX: J43.2 Centrilobular emphysema (principal); Z99.81 Dependence on supplemental oxygen; I27.20 Pulmonary hypertension, unspecified | CPT/HCPCS: 99222 ==

== ENCOUNTER 2024-09-12 13:55 | Outpatient (AMB) | payer OTHER, SELFPAY ==
--- NOTE | 2024-09-12 14:06 | A.OFFVIS_ITS ---
Vital Signs 09/12/24 14:07 Height 5 ft 5 in BMI Reason not done Patient refused/unable BP 128/68 Blood Pressure Location Lt brachial Position Sitting Pulse 130 H Pulse Source Pulse Oximeter Intake Visit Reasons: 6m follow up Allergies No Known Allergies Allergy (Verified 09/12/24 15:22) Medication List - Last Reconciled 09/12/24 by Ruben Hickey MD acetaminophen 1,000 mg (2 x 500 mg) PO TID PRN albuterol sulfate 90 mcg/actuation 2 puffs inhalation Q4H PRN albuterol sulfate 2.5 mg inhalation Q4H PRN alprazolam 0.25 mg PO DAILY PRN apixaban (Eliquis) 5 mg PO BID ascorbic acid (vitamin C) (Vitamin C) 500 mg PO DAILY biotin (Hair, Skin and Nails (biotin)) 10,000 mcg PO DAILY calcium carbonate-vitamin D3 600 mg-5 mcg (200 unit) 1 tab PO DAILY citalopram 40 mg PO DAILY codeine-guaifenesin 10-100 mg/5 mL 10 mL PO Q6H PRN 10 days diltiazem HCl CD 240 mg PO DAILY famotidine 20 mg PO DAILY@0800 ferrous sulfate 325 mg PO DAILY fluticasone propionate 50 mcg/actuation (Flonase Allergy Relief) 50 mcg intranasal DAILY PRN [id number] 100-62.5-25 mcg (Trelegy Ellipta) 1 inh PO DAILY furosemide 40 mg PO BID gabapentin 300 mg PO BEDTIME guaifenesin ER (Mucinex) 600 mg PO BID ipratropium bromide 2 sprays intranasal TID 30 days levofloxacin 500 mg PO DAILY montelukast 10 mg PO DAILY mupirocin 2% 1 appl topical TID 10 days nebulizers As directed Oxygen Home Use As directed pravastatin 40 mg PO DAILY@0800 prednisone See Taper mg PO DIRECTED psyllium husk (Metamucil) 0.4 grams PO DAILY ropinirole 0.25 mg PO BID trazodone 12.5 mg PO BEDTIME PRN turmeric root extract 500 mg PO DAILY@0800 HPI Comments Details: Tanya returns for follow-up. She has a history of paroxysmal atrial fibrillation, COPD on supplemental oxygen, hypertension and many comorbidities. In August of 2023, she was admitted with COPD exacerbation. In that setting, she had atrial fibrillation with rapid rate. Then started on amiodarone. Subsequently, when she came for follow-up visit there was question of AV dissociation on the EKG and hence amiodarone was stopped. She is also on a lower dose of diltiazem. She was previously on diltiazem 360 mg, but now on 240 mg. More recently, she was having anemia issues and it seems that she actually had a recent hospitalization for severe anemia, as much as 4.9. Then got blood transfusions and then eventually discharged home. Underwent GI workup. She is back on anticoagulation. Overall, feels just about the same as before. Shortness of breath with activity. Comes in a wheelchair. [facility] Medical History COPD (chronic obstructive pulmonary disease) PAF (paroxysmal atrial fibrillation) Atrial fibrillation with rapid ventricular response Lung nodule Pleural effusion Pulmonary hypertension Mitral annular calcification Aortic valve calcification Cough Sinusitis Chronic respiratory failure Pneumonia Surgical History No pertinent past surgical history Family History Brother Myocardial infarction Father Stroke Maternal Grandmother Bone cancer Social History Household Members: Children Household Members Other:: Daughter and family Housing: House Are you a primary social worker palliative care to a significant other at home: No Do you presently have visiting nurse or other home services: No Alcohol intake: never Patient Tobacco Use Status: Former Tobacco user Tobacco use type: Cigarette e-Cigarette/Vaping Use: Never Used Second Hand Smoke Exposure: No Advance Directives Date on File: 06/21/23 service: No Current occupational status: retired Review of Systems Const Denies weakness ENT Denies dizziness Card Denies chest pain, Denies chest pain with activity, Denies syncope, Denies rapid heart rate, Denies pedal edema, Denies edema, Denies leg edema, Denies lightheadedness, Denies palpitations, Denies dyspnea, Denies dyspnea on exertion and Denies orthopnea Resp Denies cough, Denies dyspnea and Denies dyspnea on exertion GI Denies hematochezia and Denies change in stool character Musc Denies abnormal gait, Denies muscle cramps, Denies muscle weakness, Denies numbness, Denies radiating pain into limb and Denies tingling Neuro Denies abnormal gait, Denies dizziness, Denies syncope, Denies numbness, Denies tingling and Denies weakness Endo Denies palpitations Physical Exam Vital Signs: Last Vital Signs Pulse 78 09/12/24 14:07 BP 128/68 09/12/24 14:07 Const General: comfortable and no acute distress Orientation/consciousness: patient oriented x3 HEENT Other: Unremarkable Head: Yes normal to inspection Neck Neck: Yes normal visual inspection Chest Chest palpation & inspection: normal inspection of the chest Resp Auscultation: clear to auscultation bilaterally Cardio Palpation: normal PMI Heart sounds: S1 normal heart sound present, S2 normal heart sound present, no gallops, no murmurs and no rubs GI Palpation (GI): Soft to palpation Back/Spine/Pelvis Other: unremarkable Skin General skin exam: no rashes or lesions noted Neuro General: patient oriented x3 Extrem General: Yes normal to inspection Psych Mental Status: mental status grossly normal Office Procedures EKG Details: EKG with atrial fibrillation at a rate of 131/Min; nonspecific ST-T changes. [id number], Complete Assessment & Plan Assessment & Plan (1) PAF (paroxysmal atrial fibrillation): Code(s): I48.0 - Paroxysmal atrial fibrillation Category: Medical Plan: While on amiodarone/diltiazem, she had AV dissociation. Now off amiodarone. On lower dose of diltiazem. No changes. Today, she is in atrial fibrillation with rapid rate by EKG. Because of many comorbidities, we will send her to the ER for evaluation. Likely needs a CBC rechecked to ensure she is not bleeding again. May consider adding digoxin to diltiazem. In a prior EKG from last month, she was not sinus rhythm. With regard to use of anticoagulation, because of anemia requiring transfusions we did discuss about Watchman device. Reading material given. To be decided. (2) Diastolic dysfunction: Code(s): I51.89 - Other ill-defined heart diseases Category: Medical Plan: Suspected moderate diastolic dysfunction on the echocardiogram. Continue diuretics. (3) Pulmonary hypertension: Code(s): I27.20 - Pulmonary hypertension, unspecified Category: Medical Plan: Last echocardiogram with moderate pulmonary hypertension. Could be related to left heart dysfunction as well as pulmonary disease. From cardiac, continue diuretics. (4) Anemia: Code(s): D64.9 - Anemia, unspecified Category: Medical Plan: Patient has undergone GI workup. EGD with gastritis, gastric polyps, duodenal nodule and no obvious source of bleeding. Colonoscopy with diverticulosis, hemorrhoids, old blood in terminal ileum. Follow up with GI/Hematology. Plan Sent to ER because of atrial fibrillation rapid rate and many comorbidities. Discussed with daughter who came for appointment. Coding Level of Care Code Est Pt Level 5 (59326) Complex EM visit Add On G2211 Diagnoses PAF (paroxysmal atrial fibrillation) I48.0 Diastolic dysfunction I51.89 Pulmonary hypertension I27.20 Anemia D64.9 CPT Codes EKG - CPT: 99269-[id number], Complete ([id number])
[2024-09-12 14:07] VITALS: BP 128/68; PULSE 130
--- OUTSIDE RECORDS SUMMARY | 2024-09-12 16:58 | XMS_ITS | Encounter Summary ---
Author Organization [facility] Address [address] [place] [address] Care Team Providers Care Slope Runner Name Role Phone Lizandro Gibbs MD Primary Care Provider Stuart Shahid MD Unavailable [phone] Encounter Details Date Type Department Care Team Description 09/15/2021 SCAN Medical Records [address] [place] [address] Lizandro Gibbs MD Social History Tobacco Use Types Packs/Day Years Used Date Smoking Tobacco: Former Cigarettes 2 50 Smokeless Tobacco: Never Alcohol Use Standard Drinks/Week Comments Yes 1 (1 standard drink = 0.6 oz pur e alcohol) week Sex Assigned at Date Recorded Not on file Job Start Date Occupation Industry Not on file Not on file Not on file documented as of this encounter Plan of Treatment Not on file documented as of this encounter Visit Diagnoses Not on filedocumented in this encounter Care Teams Slope Runner Relationship Specialty Start Date End Date Lizandro Gibbs MD PCP - General Internal Medicine 04/20/12 Stuart Cardenas MD Medical [facility] [address] [place] [address] Specialist Cardiovascular Disease 09/16/21 3 documented as of this encounter
--- OUTSIDE RECORDS SUMMARY | 2024-09-12 16:58 | XMS_ITS | Encounter Summary ---
Author Organization [facility] Address [address] [place] [address] Care Team Providers Care Directional Driller Name Role Phone Lizandro Gibbs MD Primary Care Provider Stuart Shahid MD Unavailable [phone] Encounter Details Date Type Department Care Team Description 10/19/2017 SCAN Medical Records [address] [place] [address] Abstract, Provider Social History Tobacco Use Types Packs/Day Years [...] on file documented as of this encounter Procedures Procedure Name Priority Date/Time Associated Diagnosis Comments OUTSIDE MRI/MRA Routine 10/19/2017 documented in this encounter Results * OUTSIDE MRI/MRA (10/19/2017) Provider Abstract RADIOLOGY documented in this encounter Visit Diagnoses Not on filedocumented in this encounter Care Teams Directional Driller Relationship Specialty Start Date End Date Lizandro Gibbs MD PCP - General Internal Medicine 04/20/12 Stuart Cardenas MD Medical [facility] [address] [place] [id number] Specialist Cardiovascular Disease 09/16/21 6/ 3 documented as of this encounter
--- OUTSIDE RECORDS SUMMARY | 2024-09-12 16:58 | XMS_ITS | Data Portability ---
Author Organization [facility] [address] Address [address] [place] [address] Care Team Providers Care Pipe Line Gauger Name Role Phone JOHN HERNANDEZ Primary Care Provider [phone] Assessment No assessment recorded. Plan of Treatment [...] By Organization Details Last Modified Time 07/02/2022 [id number] cough: care instructions Not available 07/02/2022 14:59:31 [...] Details Recorded Time Chronic obstructive pulmonary disease 30919290 Active 2021 [facility] 14:28:17 Hypertensive disorder 56365157 Active 2021 [facility] 14:35:25 Hyperlipidemia 58705182 Active 2021 JACKELYN PÉREZCECINadine grover, [place] - [facility] 14:35:44 Restless legs 30277502 Active 2021 [facility]N [facility], [facility] - [facility] [...] Arterial blood by Pulse oximetry Respiratory rate Pain severity - 0-10 verbal numeric rating [Score] - Reported Heart rate Oxygen saturation Oxygen saturation in Arterial blood by Pulse oximetry Inhaled oxygen flow rate Respiratory rate Systolic blood pressure Diastolic blood pressure Provider Name and Address Organization Details Last Updated DateTime 2 160.02 cm 28.9 kg/m2 69589.5 6 g 88 % 88 % 24 /min 0 90 /min 96 % 96 % 2 L/min 22 /min 156 mm[Hg] 69 mm[Hg] JACKELYN PÉREZCECINadine PA - [facility] 2 14:27:35 Date Recorded Oxygen saturation Oxygen saturation in Arterial blood by Pulse oximetry Inhaled oxygen flow rate Provider Name and Address Organization Details Last Updated DateTime 07/02/2022 99 % 99 % 2 L/min Trinh Lemus PA - [facility] 07/02/2022 15:02:33 Social History Question Answer Notes LastModified by Organizat ion Details LastModified Time Tobacco Smoking Status Former Smoker JACKELYN PÉREZSAPNA reilly PA - [facility] 07/02/2022 14:36:26 What Is Your Level Of Alcohol Consumption? None Information not available 07/02/2022 When Did You Quit Smoking? 16+yearssin noni monroy Information not available 07/02/2022 Do You Use [...] 14:24:48 Influenza, high-dose, quadrivalent, PF 06/13/2022 completed JACKELYNEMMA MAYENZ null, PA - [facility] 07/02/2022 14:24:48 Past Encounters Encounter ID Performer Location Encounter Start Date Encounter Closed Date Diagnosis/Indication Diagnosis SNOMED-CT Code Diagnosis ICD10 Code Diagnosis Note [id number] [address] [place] [address] 07/16/2019 10:19:21 07/16/2019 12:01:17 [id number] [place] [address] 01/10/2021 16:37:47 01/10/2021 17:35:59 [id number] [facility] [address] [place] [address] 07/02/2022 13:20:27 07/02/2022 15:14:04 Acute exacerbation of chronic obstructive pulmonary disease 616400468 J44.1 Health Concerns Section Related Observation LastModified by Organization Detai ls LastModified Time None Recorded Concern Status LastModified by Organization Details LastModified Time None Recorded Advance Directives Directive None Recorded Payers Encounter Date Sequence Insurance Name Policy Number Policy Urena Covered Member ID Urena Member ID Guarantor Name 07/16/2019 1 [facility] [id number] Tanya Joya [id number] Tanya Joya 01/10/2021 1 [facility] [id number] Tanya Joya [id number] Tanya Joya 07/02/[address] [place] [address] [id number] Tanya M Toan [id number] Tanya Joya Notes Date Note Type Note [...] LINO Simon [address] [place], [address], [place] - [facility] 07/02/2022 15:09:16 OBGyn Episode No OBEpisode recorded.
--- OUTSIDE RECORDS SUMMARY | 2024-09-12 16:58 | XMS_ITS | Encounter Summary ---
Author Organization [facility] Address [address] [place] [address] Care Team Providers Care Mass Spectrometry Specialist Name Role Phone Lizandro Gibbs MD Primary Care Provider Stuart Shahid MD Unavailable [phone] Encounter Details Date Type Department Care Team Description 06/18/2009 SCAN Medical Records [address] [place] [address] Abstract, Provider Social History Tobacco Use Types Packs/Day Years Used Date Smoking Tobacco: Never Assessed Sex Assigned at Date Recorded Not on file Job Start Date Occupation Industry Not on file Not on file Not on file documented as of this encounter Plan of Treatment Not on file documented as of this encounter Procedures Procedure Name Priority Date/Time Associated Diagnosis Comments OUTSIDE VASCULAR STUDY Routine 06/18/2009 documented in this encounter Results * OUTSIDE VASCULAR STUDY (06/18/2009) Provider Abstract CARDIOLOGY documented in this encounter Visit Diagnoses Not on filedocumented in this encounter Care Teams Mass Spectrometry Specialist Relationship Specialty Start Date End Date Lizandro Gibbs MD PCP - General Internal Medicine 04/20/12 Stuart Cardenas MD [address] [place] [address] Specialist Cardiovascular Disease 09/16/21 3 documented as of this encounter
--- OUTSIDE RECORDS SUMMARY | 2024-09-12 16:58 | XMS_ITS | Encounter Summary ---
Author Organization [facility] Address [address] [place] [address] Care Team Providers Care Director Of Respiratory Therapy Name Role Phone Lizandro Gibbs MD Primary Care Provider Stuart Shahid MD Unavailable [phone] Encounter Details Date Type Department Care Team Description 09/11/2021 Hospital Medical Records [address] [place], [place] [id number] [place] [address] Social History Tobacco Use Types Packs/Day Years Used Date Smoking Tobacco: Former Cigarettes 2 50 Smokeless Tobacco: Never Comments:started at 19 quit in her 60's Alcohol Use Standard Drinks/Week Comments Yes 1 (1 standard drink = 0.6 oz pur e alcohol) week socially Sex Assigned at Date Recorded Not on file Job Start Date Occupation Industry Not on file Not on file Not on file documented as of this encounter Plan of Treatment Not on file documented as of this encounter Procedures Procedure Name Priority Date/Time Associated Diagnosis Comments OUTSIDE ECHO Routine 09/12/2021 OUTSIDE LAB Routine 09/12/2021 OUTSIDE LAB Routine 09/12/2021 OUTSIDE EKG Routine 09/11/2021 OUTSIDE PLAIN FILM Routine 09/11/2021 OUTSIDE ECHO Routine 09/12/2020 documented in this encounter Results * OUTSIDE LAB (09/12/2021) Provider Abstract LAB * OUTSIDE LAB (09/12/2021) Provider Abstract LAB * OUTSIDE ECHO (09/12/2021) Provider Abstract CARDIOLOGY * OUTSIDE PLAIN FILM (09/11/2021) Provider Abstract RADIOLOGY * OUTSIDE EKG (09/11/2021) Provider Abstract CARDIOLOGY * OUTSIDE ECHO (09/12/2020) Provider Abstract CARDIOLOGY documented in this encounter Visit Diagnoses Not on filedocumented in this encounter Care Teams Director Of Respiratory Therapy Relationship Specialty Start Date End Date Lizandro Gibbs MD PCP - General Internal Medicine 04/20/12 Stuart Cardenas MD Medical [facility] [address] [place] [address] Specialist Cardiovascular Disease 09/16/21 3 documented as of this encounter
--- OUTSIDE RECORDS SUMMARY | 2024-09-12 16:58 | XMS_ITS | Encounter Summary ---
Author Organization [facility] Address [address] [place] [address] Care Team Providers Care Chairman & Ceo Name Role Phone Lizandro Gibbs MD Primary Care Provider Stuart Shahid MD Unavailable [phone] Encounter Details Date Type Department Care Team Description 07/13/2006 SCAN Medical Records [address] [place] [address] Abstract, Provider Social History Tobacco Use Types [...] Date/Time Associated Diagnosis Comments OUTSIDE ECHO Routine 07/13/2006 documented in this encounter Results * OUTSIDE ECHO (07/13/2006) Provider Abstract CARDIOLOGY documented in this encounter Visit Diagnoses Not on filedocumented in this encounter Care Teams Chairman & Ceo Relationship Specialty Start Date End Date Lizandro Gibbs MD PCP - General Internal Medicine 04/20/12 [address] [place] [address] Specialist Cardiovascular Disease 09/16/21 3 documented as of this encounter
--- OUTSIDE RECORDS SUMMARY | 2024-09-12 16:58 | XMS_ITS | Encounter Summary ---
Author Organization [facility] Address [address] [place] [address] Care Team Providers Care Mva Still Operator Name Role Phone Lizandro Gibbs MD Primary Care Provider Stuart Shahid MD Unavailable [phone] Encounter Details Date Type Department Care Team Description 03/07/2021 Tube Station Attendant Report Medical Records [address] [place] [address] Stan Brito MD Social History Tobacco Use Types Packs/Day [...] on filedocumented in this encounter Care Teams Mva Still Operator Relationship Specialty Start Date End Date Lizandro Gibbs MD PCP - General Internal Medicine 04/20/12 Stuart Cardenas MD Medical [facility] [address] [place] [address] Specialist Cardiovascular Disease 09/16/21 3 documented as of this encounter
--- OUTSIDE RECORDS SUMMARY | 2024-09-12 16:58 | XMS_ITS | Encounter Summary ---
Author Organization [facility] Address [address] [place] [address] Care Team Providers Care Toe Puncher Name Role Phone Lizandro Gibbs MD Primary Care Provider Stuart Shahid MD Unavailable [phone] Encounter Details Date Type Department Care Team Description 09/01/2021 SCAN Medical Records [address] [place] [address] Abstract, Provider Social History Tobacco Use Types [...] Name Priority Date/Time Associated Diagnosis Comments OUTSIDE EKG Routine 09/01/2021 documented in this encounter Results * OUTSIDE EKG (09/01/2021) Provider Default CARDIOLOGY documented in this encounter Visit Diagnoses Not on filedocumented in this encounter Care Teams Toe Puncher Relationship Specialty Start Date End Date Lizandro Gibbs MD PCP - General Internal Medicine 04/20/12 Stuart Cardenas MD Medical [facility] [address] [place] [address] Specialist Cardiovascular Disease 09/16/21 6/ 3 documented as of this encounter
--- OUTSIDE RECORDS SUMMARY | 2024-09-12 16:58 | XMS_ITS | Encounter Summary ---
Author Organization [facility] Address [address] [place] [address] Care Team Providers Care Sql Ssrs Developer Name Role Phone Lizandro Gibbs MD Primary Care Provider Stuart Shahid MD Unavailable [phone] Encounter Details Date Type Department Care Team Description 03/23/2008 SCAN Medical Records [address] [place] [address] Abstract, Provider Social History Tobacco Use Types Packs/Day Years Used Date Smoking Tobacco: Never Assessed Sex Assigned at Date Recorded Not on file Job Start Date Occupation Industry Not on file Not on file Not on file documented as of this encounter Plan of Treatment Not on file documented as of this encounter Procedures Procedure Name Priority Date/Time Associated Diagnosis Comments OUTSIDE NUCLEAR STRESS TEST Routine 03/23/2008 documented in this encounter Results * OUTSIDE NUCLEAR STRESS TEST (03/23/2008) Provider Abstract CARDIOLOGY documented in this encounter Visit Diagnoses Not on filedocumented in this encounter Care Teams Sql Ssrs Developer Relationship Specialty Start Date End Date Lizandro Gibbs MD PCP - General Internal Medicine 04/20/12 Stuart Cardenas MD [address] [place] [address] Specialist Cardiovascular Disease 09/16/21 3 documented as of this encounter
--- OUTSIDE RECORDS SUMMARY | 2024-09-12 16:58 | XMS_ITS | Encounter Summary ---
Author Organization [facility] Address [address] [place] [address] Care Team Providers Care Gusset Folder Name Role Phone Lizandro Gibbs MD Primary Care Provider Stuart Shahid MD Unavailable [phone] Encounter Details Date Type Department Care Team Description 03/31/2021 SCAN Medical Records [address] [place] [address] Stan Brito MD Social History Tobacco Use Types Packs/Day Years Used Date Smoking Tobacco: Former Cigarettes 2 50 Smokeless Tobacco: Never Alcohol Use Standard Drinks/Week Comments Yes 1 (1 standard drink = 0.6 oz pur e alcohol) week Sex Assigned at Date Recorded Not on file Job Start Date Occupation Industry Not on file Not on file Not on file COVID-19 Exposure Response Date Recorded In the last month, have you been in contact with someone who was confirmed or suspected to have Coronavirus / COVID-19? No / Unsure 03/13/2021 12:27 PM EDT documented as of this encounter Plan of Treatment Not on file documented as of this encounter Procedures Procedure Name Priority Date/Time Associated Diagnosis Comments OUTSIDE PLAIN FILM Routine 03/31/2021 documented in this encounter Results * OUTSIDE PLAIN FILM (03/31/2021) Provider Default RADIOLOGY documented in this encounter Visit Diagnoses Not on filedocumented in this encounter Care Teams Gusset Folder Relationship Specialty Start Date End Date Lizandro Gibbs MD PCP - General Internal Medicine 04/20/12 Stuart Cardenas MD Medical [facility] [address] [place] [address] Specialist Cardiovascular Disease 09/16/21 3 documented as of this encounter
--- OUTSIDE RECORDS SUMMARY | 2024-09-12 16:58 | XMS_ITS | Encounter Summary ---
Author Organization [facility] Address [address] [place] [address] Care Team Providers Care Internet Marketing Strategist Name Role Phone Lizandro Gibbs MD Primary Care Provider Stuart Shahid MD Unavailable [phone] Encounter Details Date Type Department Care Team Description 06/25/2017 Transfer Records Medical Records [address] [place] [address] Abstract, Provider Social History Tobacco Use Types [...] on filedocumented in this encounter Care Teams Internet Marketing Strategist Relationship Specialty Start Date End Date Lizandro Gibbs MD PCP - General Internal Medicine 04/20/12 Stuart Cardenas MD Medical [facility] [address] [place] [address] Specialist Cardiovascular Disease 09/16/21 6 3 documented as of this encounter
--- OUTSIDE RECORDS SUMMARY | 2024-09-12 16:58 | XMS_ITS | Encounter Summary ---
Author Organization [facility] Address [address] [place] [address] Care Team Providers Care Cloth Cutting Inspector Name Role Phone Lizandro Gibbs MD Primary Care Provider Stuart Shahid MD Unavailable [phone] Encounter Details Date Type Department Care Team Description 02/17/2021 SCAN Medical Records [address] [place] [address] Abstract, Provider Social History Tobacco Use Types [...] Date/Time Associated Diagnosis Comments OUTSIDE EKG Routine 02/17/2021 documented in this encounter Results * OUTSIDE EKG (02/17/2021) Provider Default CARDIOLOGY documented in this encounter Visit Diagnoses Not on filedocumented in this encounter Care Teams Cloth Cutting Inspector Relationship Specialty Start Date End Date Lizandro Gibbs MD PCP - General Internal Medicine 04/20/12 Stuart Cardenas MD Medical [facility] [address] [place] [address] Specialist Cardiovascular Disease 09/16/21 6/ 3 documented as of this encounter
--- OUTSIDE RECORDS SUMMARY | 2024-09-12 16:58 | XMS_ITS | Encounter Summary ---
Author Organization [facility] Address [address] [place] [address] Care Team Providers Care Payment Processor Name Role Phone Lizandro Gibbs MD Primary Care Provider Stuart Shahid MD Unavailable [phone] Encounter Details Date Type Department Care Team Description 02/17/2021 SCAN Medical Records [address] [place] [address] Abstract, Provider Social History Tobacco Use Types [...] Associated Diagnosis Comments OUTSIDE PLAIN FILM Routine 02/17/2021 documented in this encounter Results * OUTSIDE PLAIN FILM (02/17/2021) Provider Default RADIOLOGY documented in this encounter Visit Diagnoses Not on filedocumented in this encounter Care Teams Payment Processor Relationship Specialty Start Date End Date Lizandro Gibbs MD PCP - General Internal Medicine 04/20/12 Stuart Cardenas MD Medical [facility] [place] [address] [place] [address] Specialist Cardiovascular Disease 09/16/21 6/ 3 documented as of this encounter
--- OUTSIDE RECORDS SUMMARY | 2024-09-12 16:58 | XMS_ITS | Encounter Summary ---
Author Organization [facility] Address [address] [place] [address] Care Team Providers Care Spd Manager Name Role Phone Lizandro Gibbs MD Primary Care Provider Stuart Shahid MD Unavailable [phone] Encounter Details Date Type Department Care Team Description 04/02/2021 SCAN Medical Records [address] [place] [address] Abstract, Provider Social History Tobacco Use Types [...] Name Priority Date/Time Associated Diagnosis Comments OUTSIDE LAB Routine 04/02/2021 documented in this encounter Results * OUTSIDE LAB (04/02/2021) Provider Abstract LAB documented in this encounter Visit Diagnoses Not on filedocumented in this encounter Care Teams Spd Manager Relationship Specialty Start Date End Date Lizandro Gibbs MD PCP - General Internal Medicine 04/20/12 Stuart Cardenas MD Medical [facility] [address] [place] [address] Specialist Cardiovascular Disease 09/16/21 3 documented as of this encounter
--- OUTSIDE RECORDS SUMMARY | 2024-09-12 16:58 | XMS_ITS | Encounter Summary ---
Author Organization [facility] Address [address] [place] [address] Care Team Providers Care Roller Pneumatic Name Role Phone Lizandro Gibbs MD Primary Care Provider Stuart Shahid MD Unavailable [phone] Encounter Details Date Type Department Care Team Description 02/19/2021 Demolition Expert Report Medical Records [address] [place] [address] Lizandro Gibbs MD Social History Tobacco Use [...] Date/Time Associated Diagnosis Comments OUTSIDE EKG Routine 02/19/2021 documented in this encounter Results * OUTSIDE EKG (02/19/2021) Provider Default CARDIOLOGY documented in this encounter Visit Diagnoses Not on filedocumented in this encounter Care Teams Roller Pneumatic Relationship Specialty Start Date End Date Lizandro Gibbs MD PCP - General Internal Medicine 04/20/12 Stuart Cardenas MD [address] [place] [address] [place] [address] Specialist Cardiovascular Disease 09/16/21 6/2 3 documented as of this encounter
--- OUTSIDE RECORDS SUMMARY | 2024-09-12 16:58 | XMS_ITS | Encounter Summary ---
Author Organization [facility] Address [address] [place] [address] Care Team Providers Care Base Cloth Inspector Name Role Phone Lizandro Gibbs MD Primary Care Provider Stuart Shahid MD Unavailable [phone] Encounter Details Date Type Department Care Team Description 07/03/2009 SCAN Medical Records [address] [place] [address] Abstract, Provider Social History Tobacco Use Types [...] Diagnosis Comments OUTSIDE NUCLEAR STRESS TEST Routine 07/03/2009 documented in this encounter Results * OUTSIDE NUCLEAR STRESS TEST (07/03/2009) Provider Abstract CARDIOLOGY documented in this encounter Visit Diagnoses Not on filedocumented in this encounter Care Teams Base Cloth Inspector Relationship Specialty Start Date End Date Lizandro Gibbs MD PCP - General Internal Medicine 04/20/12 Stuart Cardenas MD [address] [place] [address] Specialist Cardiovascular Disease 09/16/21 3 documented as of this encounter
--- OUTSIDE RECORDS SUMMARY | 2024-09-12 16:58 | XMS_ITS | Encounter Summary ---
Author Organization [facility] Address [address] [place] [address] Care Team Providers Care Student Counselor Name Role Phone Lizandro Gibbs MD Primary Care Provider Stuart Shahid MD Unavailable [phone] Encounter Details Date Type Department Care Team Description 08/19/2012 SCAN Medical Records [address] [place] [address] Abstract, Provider Social History Tobacco Use Types Packs/Day Years Used Date Smoking Tobacco: Never Assessed Sex Assigned at Date Recorded Not on file Job Start Date Occupation Industry Not on file Not on file Not on file documented as of this encounter Plan of Treatment Not on file documented as of this encounter Procedures Procedure Name Priority Date/Time Associated Diagnosis Comments OUTSIDE STRESS ECHO Routine 08/19/2012 OUTSIDE STRESS TEST Routine 08/19/2012 documented in this encounter Results * OUTSIDE STRESS TEST (08/19/2012) Provider Abstract CARDIOLOGY * OUTSIDE STRESS ECHO (08/19/2012) Provider Abstract CARDIOLOGY documented in this encounter Visit Diagnoses Not on filedocumented in this encounter Care Teams Student Counselor Relationship Specialty Start Date End Date Lizandro Gibbs MD PCP - General Internal Medicine 04/20/12 Stuart Cardenas MD [address] [place] [address] [place] [address] Specialist Cardiovascular Disease 09/16/21 6/ 3 documented as of this encounter
--- OUTSIDE RECORDS SUMMARY | 2024-09-12 16:58 | XMS_ITS | Encounter Summary ---
Author Organization [facility] Address [address] [place] [address] Care Team Providers Care Field Care Advocate Name Role Phone Lizandro Gibbs MD Primary Care Provider Stuart Shahid MD Unavailable [phone] Encounter Details Date Type Department Care Team Description 03/04/2020 White Shoe Examiner Report Medical Records [address] [place], [place] [id number] [place] [address] Social History Tobacco Use Types Packs/Day Years [...] on filedocumented in this encounter Care Teams Field Care Advocate Relationship Specialty Start Date End Date Lizandro Gibbs MD PCP - General Internal Medicine 04/20/12 Stuart Cardenas MD Medical [facility] [address] [place] [address] Specialist Cardiovascular Disease 09/16/21 3 documented as of this encounter
--- OUTSIDE RECORDS SUMMARY | 2024-09-12 16:58 | XMS_ITS | Encounter Summary ---
Author Organization [facility] Address [address] [place] [address] Care Team Providers Care Composition Mixer Name Role Phone Lizandro Gibbs MD Primary Care Provider Stuart Shahid MD Unavailable [phone] Encounter Details Date Type Department Care Team Description 04/22/2021 Head Resident Report Medical Records [address] [place] [address] Stan Brito MD Social History Tobacco Use [...] on filedocumented in this encounter Care Teams Composition Mixer Relationship Specialty Start Date End Date Lizandro Gibbs MD PCP - General Internal Medicine 04/20/12 Stuart Cardenas MD Medical [facility] [address] [place] [address] Specialist Cardiovascular Disease 09/16/21 3 documented as of this encounter
--- OUTSIDE RECORDS SUMMARY | 2024-09-12 16:58 | XMS_ITS | Encounter Summary ---
Author Organization [facility] Address [address] [place] [address] Care Team Providers Care Television Installer Helper Name Role Phone Lizandro Gibbs MD Primary Care Provider Stuart Shahid MD Unavailable [phone] Encounter Details Date Type Department Care Team Description 05/05/2021 SCAN Medical Records [address] [place] [address] Abstract, Provider Social History Tobacco Use Types [...] Associated Diagnosis Comments OUTSIDE PLAIN FILM Routine 05/05/2021 documented in this encounter Results * OUTSIDE PLAIN FILM (05/05/2021) Provider Abstract RADIOLOGY documented in this encounter Visit Diagnoses Not on filedocumented in this encounter Care Teams Television Installer Helper Relationship Specialty Start Date End Date Lizandro Gibbs MD PCP - General Internal Medicine 04/20/12 Stuart Cardenas MD Medical [facility] [address] [place] [address] Specialist Cardiovascular Disease 09/16/21 6/ 3 documented as of this encounter
--- OUTSIDE RECORDS SUMMARY | 2024-09-12 16:59 | XMS_ITS ---
Author Organization [facility] Care Team Providers Care Forgesmith Name Role Phone Ellyn Cadena Unavailable Unavailable Rah Jackson Unavailable Unavailable Kendra Puentes Unavailable Unavailable Natalya Werner Unavailable Unavailable Allergies and adverse reactions No Known Allergies Care Team Name Role Address Phone Organization Dates Rah Jackson PCP [address] [facility] [address], [place], [address], [facility] (Office): [facility] 09/03/2023 - 09/17/2023 Ellyn Cadena Attending Physician [address] [place] [address], [address], [facility] (Office): [facility] 09/03/2023 - 09/17/2023 Kendra Puentes Attending Physician [address] [place] [address], [address], [place] (Office): [facility] 09/03/2023 - 09/17/2023 Natalya Werner Attending Physician [address] [place], [address], [facility] (Office): [facility] 09/03/2023 - 09/17/2023 Immunizations Immunization Status Vaccine Details Vaccine Code CodeSystem Date Notes Influenza completed influenza, seasonal, [place], quadrivalent, 0.5mL dose, no preservative 201 CVX created date: 09/06/2023 administere d date: 03/31/2023 SARS-COV-2 (COVID-19) completed SARS-COV-2 (COVID-19) vaccine, mRNA, spike protein, LNP, bivalent, preservative free, 30 mcg/0.3 mL dose, shea-sucrose formulation Step 1 of Multi-step with next step required 300 CVX created date: 09/06/2023 consent date: 09/06/2023 administere d date: 07/07/2021 SARS-COV-2 (COVID-19) completed SARS-COV-2 (COVID-19) vaccine, mRNA, spike protein, LNP, bivalent, preservative free, 30 mcg/0.3 mL dose, shea-sucrose formulation Step 1 of Multi-step with next step required 300 CVX created date: 09/06/2023 administere d date: 08/28/2020 SARS-COV-2 (COVID-19) completed SARS-COV-2 (COVID-19) vaccine, mRNA, spike protein, LNP, bivalent, preservative free, 3 mcg/0.2 mL dose, shea-sucrose formulation Step 1 of Multi-step with next step required 302 CVX created date: 09/06/2023 administere d date: 08/07/2020 SARS-COV-2 (COVID-19 BOOSTER) completed SARS-COV-2 (COVID-19) vaccine, mRNA, spike protein, LNP, preservative free, shea-sucrose, 3 mcg/0.3 mL dose 308 CVX created date: 09/06/2023 administere d date: 05/16/2022 SARS-COV-2 (COVID-19 BOOSTER) completed SARS-COV-2 (COVID-19) vaccine, mRNA, spike protein, LNP, preservative free, shea-sucrose, 3 mcg/0.3 mL dose 308 CVX created date: 09/06/2023 administere d date: 11/04/2021 Pneumococcal conjugate PCV15 completed Pneumococcal conjugate vaccine 15-valent (PCV15), polysaccharide [id number] conjugate, adjuvant, preservative free 215 CVX created date: 09/06/2023 administere d date: 12/03/2022 Mental Status Section Date Assessment Total Score Description 09/17/2023 BIMS 15 cognitively int act CAM 0 No delirium ind icated 09/09/2023 BIMS 15 cognitively int act CAM 0 No delirium ind icated Problems Problem # Description Date of onset Resolved Date Code CodeSystem Concern Status 1 COVID-[address] active 2 CHRONIC ATRIAL FIBRILLATION, UNSPECIFIED [address] active 3 [address]KALEM[address] active 4 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 [address] active 5 ANXIETY DISORDER, UNSPECIFIED [address] active 6 CHRONIC OBSTRUCTIVE PULMONARY DISEASE, UNSPECIFIED [address] active 7 DEPENDENCE ON SUPPLEMENTAL OXYGEN [address] active 8 DIFFICULTY IN WALKING, NOT ELSEWHERE CLASSIFIED [address] active 9 HYPERLIPIDEMIA, UNSPECIFIED [address] active 10 MAJOR DEPRESSIVE DISORDER, RECURRENT, UNSPECIFIED [address] active 11 MUSCLE WEAKNESS (GENERALIZED) [address] active 12 PULMONARY HYPERTENSION, UNSPECIFIED [address] active 13 RESTLESS LEGS SYNDROME [address] active 14 SHORTNESS OF BREATH [address] active 15 SOLITARY PULMONARY NODULE [address] active 16 UNSTEADINESS ON FEET [address] active Reason for Referral No Reasons for Referral Entered Social History Social History Observation Description Start Date End Date Code Code System Current Smoking Status Tobacco smoking consumption unknown 083198100 SNOMED CT Sex Assigned At Female 1940 00481-5 [facility] Vital Signs Code Code System Vitals Name Values and Units Timing Information 9279-1 INC Respiratory Rate Value=18.0 Units=/m in 09/17/2023 97573-9 LOINC O2 % BldC Oximetry Value=92.0 Units= % 09/17/2023 59567-7 LOINC Pain Level Value=0.0 09/17/2023 8462-4 [facility] Blood Pressure-Diastolic Value=74 Un its=mmHg 09/17/2023 8480-6 [facility] Blood Pressure-Systolic Nutmi=905 Un its=mmHg 09/17/2023 8310-5 [facility] Body Temperature Value=97.6 Units=?? F 09/17/2023 8867-4 [facility] Heart rate Value=84.0 Units=/min 95079-5 [facility] Weight Wnlkn=780.8 Units=Lbs 05/2024 8302-2 [facility] Height Value=63.0 Units=Inches 09/03/2023
--- OUTSIDE RECORDS SUMMARY | 2024-09-12 16:59 | XMS_ITS | Encounter Summary ---
Author Organization [facility] Address [address] [place] [address] Care Team Providers Care Cardiovascular Radiologic Technologist Name Role Phone Lizandro Gibbs MD Primary Care Provider Stuart Shahid MD Unavailable [phone] Encounter Details Date Type Department Care Team Description 10/02/2021 SCAN Medical Records [address] [place] [address] Abstract, Provider Social History Tobacco Use Types [...] Date/Time Associated Diagnosis Comments OUTSIDE LAB Routine 10/02/2021 documented in this encounter Results * OUTSIDE LAB (10/02/2021) Provider Abstract LAB documented in this encounter Visit Diagnoses Not on filedocumented in this encounter Care Teams Cardiovascular Radiologic Technologist Relationship Specialty Start Date End Date Lizandro Gibbs MD PCP - General Internal Medicine 04/20/12 Stuart Cardenas MD Medical [facility] [address] [place] [address] Specialist Cardiovascular Disease 09/16/21 6/2 3 documented as of this encounter
--- OUTSIDE RECORDS SUMMARY | 2024-09-12 16:59 | XMS_ITS | Encounter Summary ---
Author Organization [facility] Address [address] [place] [address] Care Team Providers Care Scientific Technical Writer Name Role Phone Lizandro Gibbs MD Primary Care Provider Stuart Shahid MD Unavailable [phone] Reason for Visit * Reason Onset Date Comments APPOINTMENT 10/30/2022 11/04/22 Encounter Details Date Type Department Care Team Description 10/30/2022 Telephone Cardio PVC POC [address] [place] [address] Stuart Carednas MD [address] [place] [address] APPOINTMENT (11/04/22) Social History Tobacco Use Types Packs/Day Years [...] on file documented as of this encounter Miscellaneous Notes * Telephone Encounter - Panchito Montague - 10/30/2022 7:50 AM EDT Called patient to confirm cancellation request for 11/04/22 with via [employer]. documented in this encounter Plan of Treatment Not on file documented as of this encounter Visit Diagnoses Not on filedocumented in this encounter Care Teams Scientific Technical Writer Relationship Specialty Start Date End Date Lizandro Gibbs MD PCP - General Internal Medicine 04/20/12 Stuart Cardenas MD [address] [place] [address] Specialist Cardiovascular Disease 09/16/21 3 documented as of this encounter
--- OUTSIDE RECORDS SUMMARY | 2024-09-12 16:59 | XMS_ITS | Encounter Summary ---
Author Organization [facility] Address [address] [place] [address] Care Team Providers Care Automotive Sales Representative Name Role Phone Lizandro Gibbs MD Primary Care Provider Stuart Shahid MD Unavailable [phone] Encounter Details Date Type Department Care Team Description 05/03/2018 SCAN Medical Records [address] [place] [address] Abstract, Provider Social History Tobacco Use Types [...] Diagnosis Comments OUTSIDE NUCLEAR STRESS TEST Routine 05/03/2018 OUTSIDE NUCLEAR STRESS TEST Routine 05/03/2018 documented in this encounter Results * OUTSIDE NUCLEAR STRESS TEST (05/03/2018) Provider Abstract CARDIOLOGY * OUTSIDE NUCLEAR STRESS TEST (05/03/2018) Provider Abstract CARDIOLOGY documented in this encounter Visit Diagnoses Not on filedocumented in this encounter Care Teams Automotive Sales Representative Relationship Specialty Start Date End Date Lizandro Gibbs MD PCP - General Internal Medicine 04/20/12 Stuart Cardenas MD [address] [place] [address] Specialist Cardiovascular Disease 09/16/21 3 documented as of this encounter
--- OUTSIDE RECORDS SUMMARY | 2024-09-12 16:59 | XMS_ITS | Clinical Summary ---
Author Organization [facility] Address [address] [place] [address] Care Team Providers Care Route Deliverer Name Role Phone Lizandro Gibbs MD Primary Care Provider [phone] Medical History Medical History Date Comments Essential hypertension DX:Essent ial hypertension Hyperlipidemia DX:Hyperlipidemi a COPD (chronic obstructive pu lmonary disease) (CMS/HCC) DX:COPD (chronic obstructive pulmonary disease) (HCC) Depression DX:Depression Restless leg syndrome DX:Restles s leg syndrome Chronic respiratory failure with hypoxia (CMS/HCC) DX:Chronic respiratory failu re with hypoxia (HCC) Acute and chronic respirator y failure with hypoxia (CMS/HCC) DX:Acute and chronic respira tory failure with hypoxia (HCC) Hyponatremia DX:Hyponatremia Depression DX:Depression Family History Medical History Relation Name Comments Stroke Brother Heart attack Father Relation Name Status Comments Brother Alive Father Social History Tobacco Use Types Packs/Day Years Used Date Smoking Tobacco: Former Cigarettes Smokeless Tobacco: Never Alcohol Use Standard Drinks/Week Comments Yes 1 (1 standard drink = 0.6 oz pur e alcohol) Comments Unknown Sex and Gender Information Value Date Recorded Sex Assigned at Not on file Legal Sex Female 10:15 AM EST Gender Identity Not on file Sexual Orientation Not on file Obstetrics History Last Filed Vital Signs Vital Sign Reading Time Taken Comments Blood Pressure 132/70 10/27/2021 3:07 PM EDT Sitting R Arm Pulse 83 10/27/2021 3:07 PM EDT Temperature - - Respiratory Rate - - Oxygen Saturation - - Inhaled Oxygen Concentration - - Weight 74.8 kg (164 lb 12.8 oz) 10/27/2021 3:07 PM EDT Height 160 cm (5' 3 ) 10/27/2021 3:07 PM EDT Body Mass Index 29.19 10/27/2021 3:07 PM EDT Plan of Treatment Health Maintenance Due Date Last Done Comments DTaP,Tdap,and Td Vaccines (1 - Tdap) 1961 Pneumococcal Vaccine: 50+ Ye ars (1 of 2 - PCV) 1961 Zoster Vaccines (1 of 2) 1992 RSV Immunization Patients 60 + Years Old (1 - 1-dose 75+ series) 2017 Cholesterol Screening (Lipid Panel) 06/13/2022 Depression Screening 06/13/2022 Falls Risk Assessment 06/13/2022 Osteoporosis Screening (Bone Density Screening) 06/13/2022 Social Influencers of Health Screening 06/13/2022 Hypertension/CHF/CAD Annual BMP Blood Test 06/20/2022 COVID-19 Vaccine ( - 2023-2 5 season) 2024 Influenza Vaccine (#1) 2024 04/06/2017 HIB Vaccines Aged Out No longer eligi ble based on patient's age to complete this topic HPV Vaccines Aged Out No longer eligi ble based on patient's age to complete this topic Hepatitis A Vaccines Aged Out No long er eligible based on patient's age to complete this topic Hepatitis B Vaccines Aged Out No long er eligible based on patient's age to complete this topic IPV Vaccines Aged Out No longer eligi ble based on patient's age to complete this topic MMR Vaccines Aged Out No longer eligi ble based on patient's age to complete this topic Meningococcal ACWY Vaccine Aged Out N o longer eligible based on patient's age to complete this topic Meningococcal B Vacine Aged Out No lo nger eligible based on patient's age to complete this topic RSV Immunization Patients Un jaime 20 months Aged Out No longer eligible b ased on patient's age to complete this topic Varicella Vaccines Aged Out No longer eligible based on patient's age to complete this topic Advance Directives Documents on File Type Date Recorded 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
--- OUTSIDE RECORDS SUMMARY | 2024-09-12 16:59 | XMS_ITS | Encounter Summary ---
Author Organization [facility] Address [address] [place] [address] Care Team Providers Care Php Architect Name Role Phone Lizandro Gibbs MD Primary Care Provider Stuart Shahid MD Unavailable [phone] Encounter Details Date Type Department Care Team Description 08/11/2019 SCAN Medical Records [address] [place] [address] Abstract, Provider Social History Tobacco Use Types [...] Date/Time Associated Diagnosis Comments OUTSIDE EKG Routine 08/11/2019 documented in this encounter Results * OUTSIDE EKG (08/11/2019) Provider Default CARDIOLOGY documented in this encounter Visit Diagnoses Not on filedocumented in this encounter Care Teams Php Architect Relationship Specialty Start Date End Date Lizandro Gibbs MD PCP - General Internal Medicine 04/20/12 Stuart Cardenas MD Medical [facility] [address] [place] [address] Specialist Cardiovascular Disease 09/16/21 6/2 3 documented as of this encounter
--- OUTSIDE RECORDS SUMMARY | 2024-09-12 16:59 | XMS_ITS | Encounter Summary ---
Author Organization [facility] Address [address] [place] [address] Care Team Providers Care Machines Technician Name Role Phone Lizandro Gibbs MD Primary Care Provider Stuart Shahid MD Unavailable [phone] Encounter Details Date Type Department Care Team Description 10/27/2021 SCAN Medical Records [address] [place], [place] [address] [place] [address] Social History Tobacco Use Types Packs/Day Years [...] Exposure Response Date Recorded In the last 10 days, have elizabeth u been in contact with someone who was confirmed or suspected to have Coronavirus/COVID-19? Yes 10/27/2021 2:46 PM EDT documented as of this encounter Plan of Treatment Not on file documented as of this encounter Visit Diagnoses Not on filedocumented in this encounter Care Teams Machines Technician Relationship Specialty Start Date End Date Lizandro Gibbs MD PCP - General Internal Medicine 04/20/12 Stuart Cardenas MD Medical [facility] [address] [place] [address] Specialist Cardiovascular Disease 09/16/21 6/2 3 documented as of this encounter
--- OUTSIDE RECORDS SUMMARY | 2024-09-12 16:59 | XMS_ITS | Encounter Summary ---
Author Organization [facility] Address [address] [place] [address] Care Team Providers Care Circular Sawyer Helper Name Role Phone Lizandro Gibbs MD Primary Care Provider Unav ailable Encounter Details Date Type Department Care Team Description 10/01/2023 Hospital Medical Records [address] [place], [place] [address] [place] [address] Social History Tobacco Use Types Packs/Day Years [...] Date/Time Associated Diagnosis Comments OUTSIDE ECHO Routine 10/03/2023 documented in this encounter Results * OUTSIDE ECHO (10/03/2023) Provider Default CARDIOLOGY [facility] documented in this encounter Visit Diagnoses Not on filedocumented in this encounter Care Teams Circular Sawyer Helper Relationship Specialty Start Date End Date Lizandro Gibbs MD PCP - General Internal Medicine 04/20/12 documented as of this encounter
--- OUTSIDE RECORDS SUMMARY | 2024-09-12 16:59 | XMS_ITS | Encounter Summary ---
Author Organization [facility] Address [address] [place] [address] Care Team Providers Care Professor Of Theater Name Role Phone Lizandro Gibbs MD Primary Care Provider Stuart Shahid MD Unavailable [phone] Encounter Details Date Type Department Care Team Description 07/20/2022 SCAN Medical Records [address] [place] [address] Abstract, Provider Social History Tobacco Use Types [...] Associated Diagnosis Comments OUTSIDE PLAIN FILM Routine 07/20/2022 documented in this encounter Results * OUTSIDE PLAIN FILM (07/20/2022) Provider Abstract RADIOLOGY documented in this encounter Visit Diagnoses Not on filedocumented in this encounter Care Teams Professor Of Theater Relationship Specialty Start Date End Date Lizandro Gibbs MD PCP - General Internal Medicine 04/20/12 Stuart Cardenas MD Medical [facility] [address] [place] [address] Specialist Cardiovascular Disease 09/16/21 6/ 3 documented as of this encounter
--- OUTSIDE RECORDS SUMMARY | 2024-09-12 16:59 | XMS_ITS | Encounter Summary ---
Author Organization [facility] Address [address] [place] [address] Care Team Providers Care Epidemiology Internship Name Role Phone Lizandro Gibbs MD Primary Care Provider Stuart Shahid MD Unavailable [phone] Encounter Details Date Type Department Care Team Description 10/24/2021 Hospital Medical Records [address] [place] [address] Kylie Sharp, JAVIERC Social History Tobacco Use Types Packs/Day Years [...] Recorded In the last 10 days, have yo u been in contact with someone who was confirmed or suspected to have Coronavirus/COVID-19? Yes 10/27/2021 2:46 PM EDT documented as of this encounter Plan of Treatment Not on file documented as of this encounter Visit Diagnoses Not on filedocumented in this encounter Care Teams Epidemiology Internship Relationship Specialty Start Date End Date Lizandro Gibbs MD PCP - General Internal Medicine 04/20/12 Stuart Cardenas MD [address] [place] [address] [place] [address] Specialist Cardiovascular Disease 09/16/21 6/ 3 documented as of this encounter
--- OUTSIDE RECORDS SUMMARY | 2024-09-12 16:59 | XMS_ITS | Encounter Summary ---
Author Organization [facility] Address [address] [place] [address] Care Team Providers Care Search Consultant Name Role Phone Lizandro Gibbs MD Primary Care Provider Stuart Shahid MD Unavailable [phone] Encounter Details Date Type Department Care Team Description 02/27/2019 Release of Information Medical Records [address] [place] [address] Abstract, Provider Social History Tobacco Use Types [...] on filedocumented in this encounter Care Teams Search Consultant Relationship Specialty Start Date End Date Lizandro Gibbs MD PCP - General Internal Medicine 04/20/12 Stuart Cardenas MD Medical [facility] [address] [place] [address] Specialist Cardiovascular Disease 09/16/21 3 documented as of this encounter
--- OUTSIDE RECORDS SUMMARY | 2024-09-12 16:59 | XMS_ITS | Encounter Summary ---
Author Organization [facility] Address [address] [place] [address] Care Team Providers Care Cross Country/Track And Field Coach Name Role Phone Lizandro Gibbs MD Primary Care Provider Stuart Shahid MD Unavailable [phone] Encounter Details Date Type Department Care Team Description 09/18/2021 SCAN Medical Records [address] [place] [address] Abstract, Provider Social History Tobacco Use Types [...] Date/Time Associated Diagnosis Comments OUTSIDE LAB Routine 09/18/2021 documented in this encounter Results * OUTSIDE LAB (09/18/2021) Provider Abstract LAB documented in this encounter Visit Diagnoses Not on filedocumented in this encounter Care Teams Cross Country/Track And Field Coach Relationship Specialty Start Date End Date Lizandro Gibbs MD PCP - General Internal Medicine 04/20/12 Stuart Cardenas MD Medical [facility] [address] [place] [address] Specialist Cardiovascular Disease 09/16/21 6/ 3 documented as of this encounter
== END 2024-09-12 15:10 | disposition home or self-care (01) ==
LOC: HO.HCS 13:56
PROVIDERS: PCP Internal Medicine; Visit Provider Internal Medicine
DX: I48.0 Paroxysmal atrial fibrillation (principal); I51.89 Other ill-defined heart diseases; I27.20 Pulmonary hypertension, unspecified; D64.9 Anemia, unspecified
CPT/HCPCS: 93010; 99215; G2211

== ENCOUNTER → 2024-09-12 13:55 | Outpatient (BNVA) | payer OTHER, SELFPAY | PROVIDERS: PCP Internal Medicine; Visit Provider Internal Medicine ==

== ENCOUNTER 2024-09-12 15:09 | Inpatient (IN) | payer OTHER, SELFPAY ==
[2024-09-12] VITALS (11 sets, daily range): BP systolic 111–152; BP diastolic 60–104; PULSE 92–163; RESP 18–22; TEMP 36.6–37.9; O2SAT 94–96; BMI 27.8; BMI 28.0
--- NOTE | ~2024-09-12 | XR_ITS ---
EXAMINATION: XR CHEST CLINICAL INFORMATION: sob COMPARISON: Chest 09/02/2024. TECHNIQUE: Frontal view of the chest was obtained. FINDINGS: The lungs are hyperinflated and clear of acute pneumonic process. The heart size and pulmonary vascularity is normal. There is a healing fracture right posterior fifth and sixth ribs. No acute fracture seen. No aggressive lytic or sclerotic process. There is mild dextroscoliosis of dorsal spine. No aggressive lytic or sclerotic process seen. XR/XR chest 1V IMPRESSION: No acute cardiopulmonary process seen. Previously seen mild blunting of bilateral CP angles likely small pleural effusions has resolved. Electronically signed by: Olayinka Martinez MD 09/12/2024 04:38 PM EDT
--- NOTE | 2024-09-12 15:13 | ECG_ITS ---
Test Reason : AFIB RVR Blood Pressure : */* mmHG Vent. Rate : 123 BPM Atrial Rate : * BPM P-R Int : * ms QRS Dur : 78 ms QT Int : 292 ms P-R-T Axes : * 72 -73 degrees QTcB Int : 418 ms Atrial fibrillation with rapid ventricular response Nonspecific ST and T wave abnormality Abnormal ECG When compared with ECG of 25-Aug-2024 04:06, Atrial fibrillation has replaced Sinus rhythm Vent. rate has increased by [address] now depressed in Inferior leads Nonspecific T wave abnormality now evident in Inferior leads Referred By: Ciera Villanueva Electronically Signed By:
[2024-09-12 15:34] LABS: MANUAL DIFF FLAG NO
[2024-09-12 15:36] LABS: Basophils Percent Auto 0.2 % (0-2); Hemoglobin 10.6 g/dl (12.0-16.0); Imm Gran Abs Auto 0.32 X10*3/uL (0.00-0.03); Imm Gran Pct Auto 2.8 % (0.0-0.4); Lymphocytes Absolute Auto 0.5 X10*3/uL (1.2-4.9); Lymphocytes Percent Auto 4.1 % (20-40); Mean Corpuscular HGB Conc 28.6 g/dl (31.0-35.0); Mean Corpuscular Hemoglobin 24.4 pg (27.0-33.0); Mean Corpuscular Volume 85.3 fL (80.0-98.0); Mean Platelet Volume 10.2 fL (9.4-12.3); Monocytes Absolute Auto 0.4 X10*3/uL (0.1-1.2); Monocytes Percent Auto 3.7 % (2-11); Neutrophils Absolute Auto 10.2 x10*3/uL (2.0-8.3); Neutrophils Percent Auto 89.2 % (45-73); Platelet Count 532 X10*3/uL (160-400); Red Blood Count 4.34 X10*6/uL (4.20-5.50); White Blood Count 11.4 X10*3/uL (4.8-10.8)
--- NOTE | 2024-09-12 15:38 | ED.ARRPALP ---
HPI - Arrhythmia/Palpitations General Chief Complaint: Arrhythmia/Palpitations Stated Complaint: AFIB Time Seen by Provider: 09/12/24 15:17 History of Present Illness HPI narrative: Patient is 83-year-old female with a history of pneumonia with a history of atrial fibrillation currently on Eliquis history of diastolic heart failure. Baseline on 40 mg of Lasix twice a day. Presented to the cardiology's office with acute shortness of breath weakness generalized malaise. Was noted to have an atrial fibrillation pattern heart rate over 130. Patient was sent to the ED for further evaluation. There is no nausea no vomiting. There is generalized malaise. Denies any pain on urination. Denies any changes in medications since being discharged from the hospital about a week and a half ago. Patient also admits to not taking her Cardizem today. Related Data Home Medications ?Medication ?Instructions ?Recorded ?Confirmed albuterol sulfate 2.5 mg/3 mL 2.5 mg inhalation Q4H PRN Wheezing 03/07/21 09/12/24 (0.083 %) solution for nebulization famotidine 20 mg tablet 20 mg PO DAILY@0800 03/07/21 09/12/24 pravastatin 40 mg tablet 40 mg PO DAILY@0800 03/07/21 09/12/24 turmeric root extract 500 mg 500 mg PO DAILY@0800 09/19/21 09/12/24 capsule Oxygen Home Use 09/22/22 04/03/24 nebulizers 09/22/22 04/03/24 alprazolam 0.25 mg tablet 0.25 mg PO DAILY PRN Anxiety 08/26/23 09/12/24 apixaban 5 mg tablet (Eliquis) 5 mg PO BID 08/26/23 09/12/24 citalopram 20 mg tablet 40 mg PO DAILY 08/26/23 09/12/24 fluticasone propionate 50 50 mcg intranasal DAILY PRN 08/26/23 09/12/24 mcg/actuation nasal allergies spray,suspension (Flonase Allergy Relief) furosemide 40 mg tablet 40 mg PO BID 08/26/23 09/12/24 ropinirole 0.25 mg tablet 0.25 mg PO BID 08/26/23 09/12/24 albuterol sulfate 90 mcg/actuation 2 puff inhalation Q4H PRN 08/25/24 09/12/24 aerosol inhaler shortness of breath or wheezing biotin 10,000 mcg chewable tablet 10,000 mcg PO DAILY 08/25/24 09/12/24 (Hair, Skin and Nails (biotin)) calcium 600 mg (as 1 tab PO DAILY 08/25/24 09/12/24 carbonate)-vitamin D3 5 mcg (200 unit) tablet fluticasone fur. 100 mcg-umeclid 1 inh PO DAILY 08/25/24 09/12/24 62.5 mcg-vilant 25 mcg inhalat.powder (Trelegy Ellipta) psyllium husk 0.4 gram capsule 0.4 g PO DAILY 08/25/24 09/12/24 (Metamucil) trazodone 50 mg tablet 12.5 mg PO BEDTIME PRN sleep 09/12/24 09/12/24 Previous Rx's ?Medication ?Instructions ?Recorded ascorbic acid (vitamin C) 500 mg 500 mg PO DAILY #90 tabs 04/03/24 chewable tablet (Vitamin C) diltiazem HCl 240 mg 240 mg PO DAILY #90 caps 05/08/24 capsule,extended release 24 hr acetaminophen 500 mg tablet 1,000 mg (2 x 500 mg) PO TID PRN 05/15/24 pain #20 tabs montelukast 10 mg tablet 10 mg PO DAILY #30 tabs 06/13/24 codeine 10 mg-guaifenesin 100 mg/5 10 ml PO Q6H PRN cough 10 days 08/14/24 mL oral liquid #300 mL ipratropium bromide 42 mcg (0.06 2 spray intranasal TID 30 days #15 08/14/24 %) nasal spray mL mupirocin 2 % topical ointment 1 appl topical TID 10 days #22 08/14/24 grams gabapentin 300 mg capsule 300 mg PO BEDTIME #30 caps 08/22/24 ferrous sulfate 325 mg (65 mg 325 mg PO DAILY #30 tabs 09/05/24 iron) tablet guaifenesin 600 mg tablet, 600 mg PO BID #10 tabs 09/05/24 extended release 12 hr (Mucinex) levofloxacin 500 mg tablet 500 mg PO DAILY #4 tabs 09/05/24 prednisone 10 mg tablet See Taper PO DIRECTED #30 tabs 09/05/24 Allergies Allergy/AdvReac Type Severity Reaction Status Date / Time No Known Allergies Allergy Verified 09/12/24 15:22 Review of Systems Review of Systems: Positive shortness of breath. Positive generalized malaise Yes all other systems are reviewed and are negative [facility] Past Medical History Attestation statement: The following information was validated with the patient. Medical History COPD (chronic obstructive pulmonary disease) PAF (paroxysmal atrial fibrillation) Atrial fibrillation with rapid ventricular response Lung nodule Pleural effusion Pulmonary hypertension Mitral annular calcification Aortic valve calcification Cough Sinusitis Chronic respiratory failure Pneumonia Surgical History No pertinent past surgical history Family History Family History Brother Myocardial infarction Father Stroke Maternal Grandmother Bone cancer Social History Social History Household Members: Children Household Members Other:: Daughter and family Housing: House Are you a primary care management coordinator to a significant other at home: No Do you presently have visiting nurse or other home services: No Alcohol intake: never Patient Tobacco Use Status: Former Tobacco user Tobacco use type: Cigarette Smoked in Last 30 Days: No e-Cigarette/Vaping Use: Never Used Second Hand Smoke Exposure: No Use of substances other than those prescribed or required for medical reasons: No Advance Directives: Yes Advance Directives on File: Yes Advance Directives Date on File: 06/21/23 Do you have a plan to hurt others: No Plan service: No Current occupational status: retired Physical Exam Vital Signs: Vital Signs: Last Vital Signs Temp 97.9 F 09/12/24 18:34 Pulse 137 H 09/12/24 18:34 Resp 22 H 09/12/24 18:34 BP 122/77 09/12/24 18:34 Pulse Ox 95 09/12/24 18:34 O2 Del Method Nasal Cannula 09/12/24 18:34 O2 Flow Rate 2 09/12/24 18:34 Oxygen Flow Rate 2 09/12/24 15:19 BMI result Body Mass Index 27.8 Appearance: Alert. Oriented X3. No acute distress. Eyes: Pupils equal, round and reactive to light. ENT: Pharynx normal. Neck: Normal inspection. Neck supple. No lymph nodes noted. No crepitus CVS: Tachycardic and irregular Respiratory: No respiratory distress. Breath sounds normal. No Wheezing. No rales Abdomen: Soft and nontender. No rigidity. No distention. good BS x4 Skin: Skin warm and dry. Normal skin color. Normal skin turgor. Extremities: No lower extremity edema. Neurovascular intact to all extremities. No Lacerations. No Rash Neuro: Oriented X 3. No motor deficit. No sensory deficit. Moving all extermities. No slurred speech Medications Administered Discontinued Medications Generic Name Dose Route Start Last Admin Trade Name Freq PRN Reason Stop Dose Admin Acetaminophen 650 mg 09/12/24 15:36 09/12/24 15:46 Acetaminophen Supp 650 Mg Supp.Rect WA 09/12/24 15:37 650 mg ONCE ONE Administration Digoxin 0.25 mg 09/12/24 17:50 09/12/24 18:34 Digoxin 0.25 Mg Tablet PO 09/12/24 17:51 0.25 mg ONCE ONE Administration Protocol Diltiazem HCl 15 mg 09/12/24 15:33 09/12/24 15:47 Diltiazem Hcl 50 Mg/10 Ml Vial IVPUSH 09/12/24 15:34 15 mg STAT STA Administration Diltiazem HCl 10 mg 09/12/24 15:40 09/12/24 15:47 Diltiazem Hcl 50 Mg/10 Ml Vial IVPUSH 09/12/24 15:41 10 mg STAT STA Administration Diltiazem HCl 240 mg 09/12/24 16:31 09/12/24 17:09 Diltiazem Hcl Cd 240 Mg Cap.Er.Deg PO 09/12/24 16:32 240 mg ONCE ONE Administration Protocol Cefepime HCl 1 gm/ Sodium 50 mls @ 100 mls/hr 09/12/24 15:36 09/12/24 16:30 Chloride IV 09/12/24 16:05 Infused ONCE ONE Infusion Sodium Chloride 500 mls @ 999 mls/hr 09/12/24 16:45 09/12/24 18:06 Ns IV 09/12/24 17:15 Infused .Q31M SHALA Infusion Medical Decision Making Medical Decision Making MDM Narrative: Patient arrived from cardiology office with palpitation. Atrial fibrillation with RVR heart rate was in the 130s range. Patient admitted that she did not take her Cardizem. An initial dose of 25 mg IV was given. Patient was also given her 240 mg dose of Cardizem p.o.. Monitor in the emergency department heart rate came down nicely. Patient also had a fever question etiology lactate was 2.0 there is no signs of severe sepsis. Patient's chest x-ray showed no focal infiltrate by my interpretation. Patient's urine showed no signs of infection. Patient's COVID flu RSV were all negative. Question etiology there is no overt sign of cellulitis. There is no overt signs of large decubitus ulcer. Will monitor patient. Initially antibiotic was given. Patient's case was discussed with the hospitalist team. Cardiology team was also consulted. Wanted patient be started on digoxin. This was given. Patient at approximately 19:00 developed increased heart rate again. Elected to give patient more Cardizem. Patient to be admitted to the hospitalist service for further evaluation further heart rate control Differential Diagnosis Differential Diagnoses: The differential diagnosis associated with the presentation includes Atrial fibrillation Admission/Observation Consideration of admission/observation: Escalation of care including admission/observation considered Consult Healthcare Provider Management of the patient was discussed with: Hospitalist and Protective Officer (Cardiology) Lab Data MDM Lab Attestation statement: I reviewed the patient's lab results. 09/12/24 15:30 09/12/24 16:26 Labs: Lab Results 09/12/24 09/12/24 09/12/24 Range/Units 15:30 15:37 15:48 WBC 11.4 H (4.8-10.8) X10*3/uL RBC 4.34 (4.20-5.50) X10*6/uL Hgb 10.6 L (12.0-16.0) g/dl Hct 37.0 (37.0-47.0) % MCV 85.3 (80.0-98.0) fL MCH 24.4 L (27.0-33.0) pg MCHC 28.6 L (31.0-35.0) g/dl RDW Not Reportable Plt Count 532 H D (160-400) X10*3/uL MPV 10.2 (9.4-12.3) fL Immature Gran % (Auto) 2.8 H (0.0-0.4) % Neut % (Auto) 89.2 H (45-73) % Lymph % (Auto) 4.1 L (20-40) % [place] % (Auto) 3.7 (2-11) % Eos % (Auto) 0.0 (0-4) % Baso % (Auto) 0.2 (0-2) % Lymph # (Auto) 0.5 L (1.2-4.9) X10*3/uL [place] # (Auto) 0.4 (0.1-1.2) X10*3/uL Eos # (Auto) 0.0 (0.0-0.4) X10*3/uL Baso # (Auto) 0.0 (0.0-0.2) X10*3/uL Abs Immat Gran (auto) 0.32 H (0.00-0.03) X10*3/uL Absolute Neuts (auto) 10.2 H (2.0-8.3) x10*3/uL Absolute Nucleated RBC 0.000 (0.0-0.012) X10*3/uL Nucleated RBC % (auto) 0.0 (0.0-0.2) /100WBC PT 11.6 (10.9-12.4) SEC INR 1.0 (0.9-1.1) APTT 23.9 L D (26.0-36.8) SEC Sodium (135-145) mmol/L Potassium (3.3-5.1) mmol/L Chloride (96-108) mmol/L Carbon Dioxide (22-29) mmol/L Anion Gap (12-20) BUN (9-16) mg/dL Creatinine (0.5-1.4) mg/dL Estim Creat Clear Calc Estimated GFR Random Glucose (60-115) mg/dL Lactic Acid 2.0 (0.5-2.0) mmol/L Calcium (8.4-10.2) mg/dL Magnesium (1.6-2.6) mg/dL Total Bilirubin (0.0-1.0) mg/dL AST (5-31) U/L ALT (0-31) U/L Alkaline Phosphatase (39-117) U/L Troponin I High Sens 13.1 (<3.5-17.0) ng/L B-Natriuretic Peptide 459 H (<100) pg/mL Total Protein (6.5-8.0) g/dL Albumin (3.5-5.0) g/dL TSH (0.32-4.0) uIU/mL Urine Color Urine Appearance Urine pH (5.0-9.0) Ur Specific [place] (1.005-1.025) Urine Protein (Neg-Trace) mg/dL Urine Glucose (UA) (Negative) mg/dL Urine Ketones (Negative) mg/dL Urine Blood (Negative) Urine Nitrite (Negative) Ur Leukocyte Esterase (Negative) Urine RBC (0-2) /HPF Urine WBC (0-5) /HPF Ur Squamous Epith Cells (0-2) /HPF Urine Bacteria (None Seen) Hyaline Casts (0-2) /LPF Influenza Type A (PCR) NEGATIVE (Negative) Influenza Type B (PCR) NEGATIVE (Negative) RSV RNA Qual (PCR) NEGATIVE (Negative) SARS-CoV-2 RNA (RT-PCR) NEGATIVE (Negative) 09/12/24 09/12/24 Range/Units 16:26 17:21 WBC (4.8-10.8) X10*3/uL RBC (4.20-5.50) X10*6/uL Hgb (12.0-16.0) g/dl Hct (37.0-47.0) % MCV (80.0-98.0) fL MCH (27.0-33.0) pg MCHC (31.0-35.0) g/dl RDW Plt Count (160-400) X10*3/uL MPV (9.4-12.3) fL Immature Gran % (Auto) (0.0-0.4) % Neut % (Auto) (45-73) % Lymph % (Auto) (20-40) % [place] % (Auto) (2-11) % Eos % (Auto) (0-4) % Baso % (Auto) (0-2) % Lymph # (Auto) (1.2-4.9) X10*3/uL [place] # (Auto) (0.1-1.2) X10*3/uL Eos # (Auto) (0.0-0.4) X10*3/uL Baso # (Auto) (0.0-0.2) X10*3/uL Abs Immat Gran (auto) (0.00-0.03) X10*3/uL Absolute Neuts (auto) (2.0-8.3) x10*3/uL Absolute Nucleated RBC (0.0-0.012) X10*3/uL Nucleated RBC % (auto) (0.0-0.2) /100WBC PT (10.9-12.4) SEC INR (0.9-1.1) APTT (26.0-36.8) SEC Sodium 144 (135-145) mmol/L Potassium 3.7 (3.3-5.1) mmol/L Chloride 102 (96-108) mmol/L Carbon Dioxide 35 H (22-29) mmol/L Anion Gap 11 L (12-20) BUN 17 H (9-16) mg/dL Creatinine 0.72 (0.5-1.4) mg/dL Estim Creat Clear Calc 62.3 Estimated GFR > 60 Random Glucose 182 H (60-115) mg/dL Lactic Acid (0.5-2.0) mmol/L Calcium 9.0 D (8.4-10.2) mg/dL Magnesium 1.8 (1.6-2.6) mg/dL Total Bilirubin 0.2 (0.0-1.0) mg/dL AST 16 (5-31) U/L ALT 14 (0-31) U/L Alkaline Phosphatase 79 (39-117) U/L Troponin I High Sens (<3.5-17.0) ng/L B-Natriuretic Peptide (<100) pg/mL Total Protein 6.3 L (6.5-8.0) g/dL Albumin 3.2 L (3.5-5.0) g/dL TSH 0.64 (0.32-4.0) uIU/mL Urine Color Dark Yellow Urine Appearance Clear Urine pH 6.0 (5.0-9.0) Ur Specific [place] >= 1.030 H (1.005-1.025) Urine Protein 30 (1+) H (Neg-Trace) mg/dL Urine Glucose (UA) 500 H (Negative) mg/dL Urine Ketones Trace (Negative) mg/dL Urine Blood Negative (Negative) Urine Nitrite Negative (Negative) Ur Leukocyte Esterase Negative (Negative) Urine RBC 0-2 (0-2) /HPF Urine WBC 0-5 (0-5) /HPF Ur Squamous Epith Cells 6-10 (0-2) /HPF Urine Bacteria None Seen (None Seen) Hyaline Casts 0-2 (0-2) /LPF Influenza Type A (PCR) (Negative) Influenza Type B (PCR) (Negative) RSV RNA Qual (PCR) (Negative) SARS-CoV-2 RNA (RT-PCR) (Negative) Independent Interpretation I performed an independent interpretation of an: EKG (My interpretation of patient's EKG showed an atrial fibrillation pattern heart rate is 130) and Plain X-Ray (Patient's chest x-ray showed no focal infiltrate) Radiology Impression Discussion of test interpretation with radiology: I have reviewed the radiologist's reading. Independent Historian Clinical information obtained from an independent historian. History obtained from or confirmed by: Other (Family) External Record Review External record reviewed: Inpatient record and Office record Chronic Conditions Patient?s care impacted by: Hypertension Atrial fibrillation, COPD Social Determinants Patient?s care significantly limited by Social Determinants of Health including: Problems related to primary support group Critical Care Time Critical Care Time Critical Care Time: Yes Total Critical Care Time: 40 Attestation: I have personally provided 40 minutes of critical care time exclusive of time spent on separately billable procedures. ?Time includes review of lab data, radiology results, discussion with consultants, and monitoring for potential decompensation. ?Interventions were performed as documented above Discharge Plan Discharge Clinical Impression: Atrial fibrillation Patient Disposition: Admitted As Inpatient Prescriptions: No Action diltiazem HCl 240 mg capsule,extended release 24hr 240 mg PO DAILY Qty: 90 3RF montelukast 10 mg tablet 10 mg PO DAILY Qty: 30 0RF gabapentin 300 mg capsule 300 mg PO BEDTIME Qty: 30 6RF furosemide 40 mg tablet 40 mg PO BID Eliquis 5 mg tablet 5 mg PO BID alprazolam 0.25 mg tablet 0.25 mg PO DAILY PRN (Reason: Anxiety) citalopram 20 mg tablet 40 mg PO DAILY ropinirole 0.25 mg tablet 0.25 mg PO BID fluticasone propionate [Flonase Allergy Relief] 50 mcg/actuation [place],Suspension 50 mcg INTRANASAL DAILY PRN (Reason: allergies) ascorbic acid (vitamin C) [Vitamin C] 500 mg Tablet,Chewable 500 mg PO DAILY Qty: 90 3RF acetaminophen 500 mg tablet 1,000 mg PO TID PRN (Reason: pain) Qty: 20 0RF calcium carbonate-vitamin D3 600 mg-5 mcg (200 unit) Tablet 1 tab PO DAILY psyllium husk [Metamucil] 0.4 gram Capsule 0.4 g PO DAILY Hair, Skin and Nails (biotin) 10,000 mcg Tablet,Chewable 10,000 mcg PO DAILY albuterol sulfate 90 mcg/actuation HFA aerosol inhaler 2 puff inhalation Q4H PRN (Reason: shortness of breath or wheezing) Trelegy Ellipta 100-62.5-25 mcg blister with device 1 inh PO DAILY prednisone 10 mg tablet See Taper PO DIRECTED Qty: 30 0RF Taper: Prednisone 40 mg daily for 3 Days and 0 Hour 30 mg daily for 3 Days and 0 Hour 20 mg daily for 3 Days and 0 Hour 10 mg daily for 3 Days and 0 Hour Rx Instructions: see taper instructions levofloxacin 500 mg tablet 500 mg PO DAILY Qty: 4 0RF guaifenesin [Mucinex] 600 mg Tablet Extended Release 12hr 600 mg PO BID Qty: 10 0RF ferrous sulfate 325 mg (65 mg iron) tablet 325 mg PO DAILY Qty: 30 0RF albuterol sulfate 2.5 mg /3 mL (0.083 %) solution for nebulization 2.5 mg inhalation Q4H PRN (Reason: Wheezing) famotidine 20 mg tablet 20 mg PO DAILY@0800 pravastatin 40 mg tablet 40 mg PO DAILY@0800 (DME) nebulizers Misc See Rx Instructions .Route Rx Instructions: As directed (DME) Oxygen Home Use Kit See Rx Instructions .Route Rx Instructions: As directed turmeric root extract 500 mg capsule 500 mg PO DAILY@0800 codeine-guaifenesin 10-100 mg/5 mL liquid 10 ml PO Q6H PRN (Reason: cough) 10 Days Qty: 300 0RF ipratropium bromide 42 mcg (0.06 %) spray,non-aerosol 2 spray intranasal TID 30 Days Qty: 15 6RF Rx Instructions: administer into each nostril mupirocin 2 % ointment 1 appl topical TID 10 Days Qty: 22 0RF trazodone 50 mg tablet 12.5 mg PO BEDTIME PRN (Reason: sleep) Print Language: Citizen [place]
[2024-09-12] MEDS: Acetaminophen Supp 650 MG SUPP.RECT PR (15:46)
[2024-09-12] MEDS: dilTIAZem HCL 50 MG/10 ML VIAL 15 MG IVPUSH (15:47)
[2024-09-12] MEDS: dilTIAZem HCL 50 MG/10 ML VIAL 10 MG IVPUSH ×2 (15:47→19:34)
[2024-09-12] MEDS: cefEPime HCl 1 GM in 0.9 % Sodium Chloride 50 ML IV (15:48)
[2024-09-12 15:55] LABS: B Type Natriuretic Peptide 459 pg/mL (<100)
[2024-09-12 15:56] LABS: Troponin-I High Sensitivity 13.1 ng/L (<3.5-17.0)
[2024-09-12 16:04] LABS: Prothrombin Time 11.6 SEC (10.9-12.4)
--- NOTE | 2024-09-12 16:13 | PC.NURSE ---
Pt presents from cardiology for rapid afib, rate between 120-160, pt does have hx of afib. Pt is alert and oriented, breathing even and unlabored, on 2L O2 NC at baseline. Pt does report SOB with exertion and laying flat, 3+ pitting edema in bilat legs. Pt did not take her cardizem this morning. Feels febrile, confirmed with rectal temp. Rapid afib on the monitor 110-160. Pt denies any chest pain, N/V/D.
[2024-09-12 16:20] LABS: Partial Thromboplastin Time 23.9 SEC (26.0-36.8)
[2024-09-12 16:31] LABS: Influenza A PCR NEGATIVE (Negative); Influenza B PCR NEGATIVE (Negative); Resp Syncy Virus RNA Qual PCR NEGATIVE (Negative); SARS COV2 PCR INHOUSE NEGATIVE (Negative)
[2024-09-12 16:51] LABS: Alanine Aminotransferase 14 U/L (0-31); Albumin Level 3.2 g/dL (3.5-5.0); Aspartate Amino Transferase 16 U/L (5-31); Bilirubin Total 0.2 mg/dL (0.0-1.0); Blood Urea Nitrogen 17 mg/dL (9-16); Carbon Dioxide 35 mmol/L (22-29); Chloride 102 mmol/L (96-108); Creatinine Clr Calc Pharmacy 62.3; Estimated Glomerular Filt Rate > 60; Glucose Random 182 mg/dL (60-115); Magnesium 1.8 mg/dL (1.6-2.6); Potassium 3.7 mmol/L (3.3-5.1); Sodium 144 mmol/L (135-145); Total Protein 6.3 g/dL (6.5-8.0)
[2024-09-12] MEDS: 0.9 % Sodium Chloride 500 ML 999 ML IV (17:00)
[2024-09-12 17:08] LABS: Anion Gap 11 (12-20)
[2024-09-12] MEDS: dilTIAZem HCL CD 240 MG CAP.ER.DEG PO (17:09)
[2024-09-12 17:23] LABS: Thyroid Stimulating Hormone 0.64 uIU/mL (0.32-4.0)
--- NOTE | 2024-09-12 17:25 | PC.NURSE ---
Pt refused frankel cath, provider aware and is ok with purewick (pts preference). Will monitor I&Os
[2024-09-12 17:31] LABS: Appearance Urine Clear; Color Urine Dark Yellow; Glucose Urine UA 500 mg/dL (Negative); Leukocyte Esterase Urine Negative (Negative); Nitrite Urine Negative (Negative); Specific Gravity - Urine >= 1.030 (1.005-1.025); UMIC TRIGGER UACC YES; Urine Blood Negative (Negative); Urine Ketones Trace mg/dL (Negative); Urine Protein 30 (1+) mg/dL (Neg-Trace)
[2024-09-12 17:33] LABS: Bacteria Urine None Seen (None Seen); Hyaline Casts Urine 0-2 /LPF (0-2); RBC Urine 0-2 /HPF (0-2); WBC Urine 0-5 /HPF (0-5)
[2024-09-12 17:40] LABS: Alkaline Phosphatase 79 U/L (39-117)
--- NOTE | 2024-09-12 18:13 | P.HPHOSP_ITS ---
History of Present Illness Date of Service: 09/12/24 Attending physician on admission: Joe Clark Chief Complaint: afib 83-year-old female with history of paroxysmal atrial fibrillation anticoagulated with Eliquis, COPD with chronic hypoxemic hypercapnic respiratory failure on 2 L supplemental O2, pulmonary hypertension, and aortic and mitral calcifications presents to the ED earlier today from Cardiology office due to rapid atrial fibrillation. She was previously on amiodarone which was discontinued given question of AV dissociation. She states use recently compliant with her diltiazem but did forget her dose today. While in the Cardiology office today, patient was noted to be in atrial fibrillation with rate of 131 and was recommended to present to the ED for further evaluation and management. Per Cardiology, recommended digoxin load. She is reporting orthopnea which he reports is chronic, palpitations and chest tightness. She is also reporting a productive cough that started today. She states that she has had similar coughs in the past. Reports throat irritation related to this. Denies any fevers, chills, headache, congestion, abdominal pain, nausea, vomiting, diarrhea, shortness of breath. While in the ED, has had fluctuating heart rates up to 136 and noted to be in atrial fibrillation with intermittent tachypnea. She also had mildly elevated temperature of 100.3 degrees on arrival. Blood pressure stable. There is a mild leukocytosis of 11.4, normocytic anemia with H/H 10.6/37.0%. Renal function consistent with baseline, electrolyte levels within normal limits except for CO2 of 35 which is consistent with baseline. Lactic acid 2.0. Troponin 13.1. BNP 459. TSH 0.64. Urinalysis not indicative of infection but shows presence of glucose, 1+ protein, and elevated specific gravity. She is negative for COVID-19, RSV, influenza. Chest x-ray negative for any acute cardiopulmonary abnormality. Pleural effusions resolved. In the ED, was empirically given 1 g of Maxipime to cover for infection. She was also given 1/2 L of normal saline, IV diltiazem, p.o. diltiazem. She will be admitted for further management of atrial fibrillation with RVR and digoxin load. Review of Systems 2 Review of Systems: Yes all other systems are reviewed and are negative [facility] Medical History COPD (chronic obstructive pulmonary disease) PAF (paroxysmal atrial fibrillation) Atrial fibrillation with rapid ventricular response Lung nodule Pleural effusion Pulmonary hypertension Mitral annular calcification Aortic valve calcification Cough Sinusitis Chronic respiratory failure Pneumonia Family History Brother Myocardial infarction Father Stroke Maternal Grandmother Bone cancer Surgical History No pertinent past surgical history Social History Household Members: Children Household Members Other:: Daughter and family Housing: House Are you a primary career technical education instructor to a significant other at home: No Do you presently have visiting nurse or other home services: No Alcohol intake: never Patient Tobacco Use Status: Former Tobacco user Tobacco use type: Cigarette Smoked in Last 30 Days: No e-Cigarette/Vaping Use: Never Used Second Hand Smoke Exposure: No Use of substances other than those prescribed or required for medical reasons: No Advance Directives: Yes Advance Directives on File: Yes Advance Directives Date on File: 06/21/23 Do you have a plan to hurt others: No Plan service: No Current occupational status: retired [employer] Allergies Allergy/AdvReac Type Severity Reaction Status Date / Time No Known Allergies Allergy Verified 09/12/24 15:22 Home Medications ?Medication ?Instructions ?Recorded ?Confirmed ?Last Taken ?Type albuterol sulfate 2.5 mg/3 mL 2.5 mg inhalation Q4H PRN Wheezing 03/07/21 09/12/24 08/24/24 History (0.083 %) solution for nebulization famotidine 20 mg tablet 20 mg PO DAILY@0800 03/07/21 09/12/24 08/24/24 History pravastatin 40 mg tablet 40 mg PO DAILY@79903/07/21 09/12/24 08/24/24 History turmeric root extract 500 mg 500 mg PO DAILY@79909/19/21 09/12/24 08/24/24 History capsule Oxygen Home Use 09/22/22 04/03/24 Unknown History nebulizers 09/22/22 04/03/24 Unknown History alprazolam 0.25 mg tablet 0.25 mg PO DAILY PRN Anxiety 08/26/23 09/12/24 08/24/24 History apixaban 5 mg tablet (Eliquis) 5 mg PO BID 08/26/23 09/12/24 08/24/24 History citalopram 20 mg tablet 40 mg PO DAILY 08/26/23 09/12/24 08/24/24 History fluticasone propionate 50 50 mcg intranasal DAILY PRN 08/26/23 09/12/24 08/24/24 History mcg/actuation nasal allergies spray,suspension (Flonase Allergy Relief) furosemide 40 mg tablet 40 mg PO BID 08/26/23 09/12/24 08/24/24 History ropinirole 0.25 mg tablet 0.25 mg PO BID 08/26/23 09/12/24 08/24/24 History albuterol sulfate 90 mcg/actuation 2 puff inhalation Q4H PRN 08/25/24 09/12/24 08/24/24 History aerosol inhaler shortness of breath or wheezing biotin 10,000 mcg chewable tablet 10,000 mcg PO DAILY 08/25/24 09/12/24 08/24/24 History (Hair, Skin and Nails (biotin)) calcium 600 mg (as 1 tab PO DAILY 08/25/24 09/12/24 08/24/24 History carbonate)-vitamin D3 5 mcg (200 unit) tablet fluticasone fur. 100 mcg-umeclid 1 inh PO DAILY 08/25/24 09/12/24 08/24/24 History 62.5 mcg-vilant 25 mcg inhalat.powder (Trelegy Ellipta) psyllium husk 0.4 gram capsule 0.4 g PO DAILY 08/25/24 09/12/24 08/24/24 History (Metamucil) trazodone 50 mg tablet 12.5 mg PO BEDTIME PRN sleep 09/12/24 09/12/24 Unknown History Physical Exam 2 Vital Signs and Narrative: Vital Signs: Last Vital Signs Temp 99.5 F 09/12/24 17:02 Pulse 124 H 09/12/24 18:05 Resp 20 09/12/24 18:05 BP 131/73 09/12/24 18:05 Pulse Ox 95 09/12/24 18:05 O2 Del Method Nasal Cannula 09/12/24 18:05 O2 Flow Rate 2 09/12/24 18:05 Oxygen Flow Rate 2 09/12/24 15:19 BMI result Body Mass Index 27.8 Constitutional - Awake and Alert, No apparent distress Eyes - PERRLA, EOMI Cardiovascular - S1S2, irregularly irregular, tachycardic, No edema Respiratory - Normal lung expansion, Normal respiratory effort, No respiratory distress on 2 L supplemental O2, CTA bilaterally Gastrointestinal - NT / ND; +BS; No rebound or guarding Extremities - no calf tenderness bilaterally, no swelling Skin - Warm/Dry Neurological - Alert & oriented x3 Psychological - Appropriate affect Results Labs 09/12/24 15:30 09/12/24 16:26 Labs: Laboratory Results - last 24 hr 09/12/24 09/12/24 09/12/24 15:30 15:37 15:48 MCV 85.3 MCH 24.4 L MCHC 28.6 L RDW Not Reportable Plt Count 532 H D MPV 10.2 Immature Gran % (Auto) 2.8 H Neut % (Auto) 89.2 H Lymph % (Auto) 4.1 L Mills % (Auto) 3.7 Eos % (Auto) 0.0 Baso % (Auto) 0.2 Lymph # (Auto) 0.5 L Mills # (Auto) 0.4 Eos # (Auto) 0.0 Baso # (Auto) 0.0 Abs Immat Gran (auto) 0.32 H Absolute Neuts (auto) 10.2 H Absolute Nucleated RBC 0.000 Nucleated RBC % (auto) 0.0 PT 11.6 INR 1.0 APTT 23.9 L D Anion Gap Estim Creat Clear Calc Estimated GFR Random Glucose Lactic Acid 2.0 Calcium Magnesium Total Bilirubin AST ALT Alkaline Phosphatase B-Natriuretic Peptide 459 H Total Protein Albumin TSH Urine Color Urine Appearance Urine pH Ur Specific Allred Urine Protein Urine Glucose (UA) Urine Ketones Urine Blood Urine Nitrite Ur Leukocyte Esterase Urine RBC Urine WBC Ur Squamous Epith Cells Urine Bacteria Hyaline Casts Influenza Type A (PCR) NEGATIVE Influenza Type B (PCR) NEGATIVE RSV RNA Qual (PCR) NEGATIVE SARS-CoV-2 RNA (RT-PCR) NEGATIVE 09/12/24 09/12/24 16:26 17:21 MCV MCH MCHC RDW Plt Count MPV Immature Gran % (Auto) Neut % (Auto) Lymph % (Auto) Mills % (Auto) Eos % (Auto) Baso % (Auto) Lymph # (Auto) Mills # (Auto) Eos # (Auto) Baso # (Auto) Abs Immat Gran (auto) Absolute Neuts (auto) Absolute Nucleated RBC Nucleated RBC % (auto) PT INR APTT Anion Gap 11 L Estim Creat Clear Calc 62.3 Estimated GFR > 60 Random Glucose 182 H Lactic Acid Calcium 9.0 D Magnesium 1.8 Total Bilirubin 0.2 AST 16 ALT 14 Alkaline Phosphatase 79 B-Natriuretic Peptide Total Protein 6.3 L Albumin 3.2 L TSH 0.64 Urine Color Dark Yellow Urine Appearance Clear Urine pH 6.0 Ur Specific Allred >= 1.030 H Urine Protein 30 (1+) H Urine Glucose (UA) 500 H Urine Ketones Trace Urine Blood Negative Urine Nitrite Negative Ur Leukocyte Esterase Negative Urine RBC 0-2 Urine WBC 0-5 Ur Squamous Epith Cells 6-10 Urine Bacteria None Seen Hyaline Casts 0-2 Influenza Type A (PCR) Influenza Type B (PCR) RSV RNA Qual (PCR) SARS-CoV-2 RNA (RT-PCR) Imaging Radiologist's Impressions: Impressions Chest X-Ray 09/12/24 15:33 IMPRESSION: No acute cardiopulmonary process seen. Previously seen mild blunting of bilateral CP angles likely small pleural effusions has resolved. Electronically signed by: Olayinka Martinez MD 09/12/2024 04:38 PM EDT RP Assessment and Plan (1) Atrial fibrillation: Status: Acute Plan 83-year-old female with history of paroxysmal atrial fibrillation anticoagulated with Eliquis, COPD with chronic hypoxemic hypercapnic respiratory failure on 2 L supplemental O2, pulmonary hypertension, and aortic and mitral calcifications admitted for further management of afib with rvr # paroxysmal atrial fibrillation with RVR -possibly triggered by viral infection. See below -presented from Cardiology office with EKG showing atrial fibrillation, rate 131 -given a total 25 mg diltiazem IV push 240 mg of diltiazem CD. Despite this, rates ranging 122-144 on exam. Initiate Cardizem drip per protocol -digoxin load with 0.25 mg q.6h x3 doses -cardiology consult -monitor telemetry -continue Eliquis for anticoagulation -echocardiogram ordered # upper respiratory infection-suspect viral in etiology -negative for COVID-19, RSV, influenza. Check full viral respiratory panel -CXR negative for acute cardiopulmonary abnormality -symptomatic management. Antibiotics not indicated at this time -Tylenol p.r.n. for fevers # elevated BNP -echo ordered but doubt acute CHF exacerbation, likely related to RVR -cardiology consult -continue furosemide # COPD with chronic hypoxemic hypercapnic respiratory failure -no acute exacerbation -complete course of Levaquin and prednisone as prescribed by pulmonology -continue 2 L supplemental O2 which she uses at home -continue home inhalers, albuterol p.r.n. # chronic iron-deficiency anemia -H/H stable -recent admission without clear cause of any bleeding at recommended for outpatient follow-up with Hematology -continue ferrous sulfate -cleared to continue Eliquis # restless legs syndrome -continue gabapentin, Requip #mood disorder -continue home medications DVT prophylaxis-Eliquis Full code Patient requires inpatient stay at least 2 midnights for management of atrial fibrillation with rapid ventricular rate requiring IV rate control and digoxin load with expert consultation and cardiac monitoring Quality Stroke Does the patient have a stroke diagnosis?: No VTE Prior VTE?: No VTE Risk Level:: Medical - moderate - high VTE Device Contraindication: Treatment Not Indicated VTE Drug Contraindication: N/A - Med Ordered
--- NOTE | 2024-09-12 18:27 | PC.NURSE ---
Pt noted to have increases in HR when talking on the phone, getting agitated. HR decreases when more calm. Waiting for digoxin from pharmacy
--- NOTE | 2024-09-12 18:29 | PC.NURSE ---
Pt takes pills whole with no issues.
[2024-09-12] MEDS: Digoxin 0.25 MG TABLET PO (18:34)
--- OUTSIDE RECORDS SUMMARY | 2024-09-12 18:50 | XMS_ITS | Encounter Summary ---
Author Organization [facility] Address [address] [place] [address] Care Team Providers Care Rehabilitation Physician Name Role Phone Lizandro Gibbs MD Primary Care Provider Stuart Shahid MD Unavailable [phone] Encounter Details Date Type Department Care Team Description 07/03/2009 SCAN Medical Records [address] [place] [address] Abstract, Provider Social History Tobacco Use Types [...] on filedocumented in this encounter Care Teams Rehabilitation Physician Relationship Specialty Start Date End Date Lizandro Gibbs MD PCP - General Internal Medicine 04/20/12 Stuart Cardenas MD [address] [place] [address] Specialist Cardiovascular Disease 09/16/21 3 documented as of this encounter
--- OUTSIDE RECORDS SUMMARY | 2024-09-12 18:50 | XMS_ITS | Encounter Summary ---
Author Organization [facility] Address [address] [place] [address] Care Team Providers Care Infant Room Teacher Name Role Phone Lizandro Gibbs MD Primary Care Provider Stuart Shahid MD Unavailable [phone] Encounter Details Date Type Department Care Team Description 08/19/2012 SCAN Medical Records [address] [place] [address] Abstract, Provider Social History Tobacco Use Types [...] on filedocumented in this encounter Care Teams Infant Room Teacher Relationship Specialty Start Date End Date Lizandro Gibbs MD PCP - General Internal Medicine 04/20/12 Stuart Cardenas MD [address] [place] [address] [place] [address] Specialist Cardiovascular Disease 09/16/21 6/ 3 documented as of this encounter
--- OUTSIDE RECORDS SUMMARY | 2024-09-12 18:50 | XMS_ITS | Encounter Summary ---
Author Organization [facility] Address [address] [place] [address] Care Team Providers Care Cleaning Technician Name Role Phone Lizandro Gibbs MD Primary Care Provider Stuart Shahid MD Unavailable [phone] Encounter Details Date Type Department Care Team Description 02/20/2021 Orders Only Cardio [facility] Diag Testing [address] [address] Lizandro Gibbs MD Chest pain, unspecified type (Primary Dx); Chronic obstructive pulmonary disease, unspecified COPD type (HCC) Social History Tobacco Use Types Packs/Day Years [...] on file documented as of this encounter Results * NUCLEAR STRESS WITH EXERCISE, REGADENOSON, OR DOBUTAMINE PER PROTOCOL (03/13/2021) Impressions [facility] - 03/13/2021 [facility] [address] [facility], [place] [address], [place] [address] TEL: ??FAX: Name: Tanya Joya ? Date of exam: 03/13/21 : 1940 ?Gender: Female ? Ordering provider: Dr. Lizandro Gibbs PCP: ??Dr. Lizandro Gibbs Height 5' 3 (1.6 m), weight 159 lb (72.1 kg). Body mass index is 28.17 kg/m??. TEST TYPE: Regadenoson Nuclear Stress Test Performed by: Mary Jane Mcghee PA-C INDICATION/HISTORY: Patient states she has COPD. CARDIAC RISK FACTORS: HTN, former smoker, COPD PRIOR CARDIAC EVENTS: None TECHNIQUE: After a 10 to 20 second injection of 0.4 mg IV Regadenoson, followed by a 5 cc normal saline bolus, the patient received ??32.2mCi of IV Tc 99m Tetrofosmin for a gated SPECT acquisition 30 minutes post stress. Same day rest SPECT imaging with 10.8mCi of ??IV Tc99m Tetrofosmin was performed. Computerized reconstruction of the images was performed for analysis. CT imaging was performed for attenuation correction purposes only STRESS TEST: The patient underwent a Regadenoson nuclear stress test with physiologic response to Regadenoson. Resting BP: 148/68 with HR of: 82 Post Injection BP: 140/66 with a HR of: 110. Symptoms: None Hemodynamic response: Physiologic Baseline ECG: SR with PACs, rightward axis Stress ECG: No ECG changes diagnostic for ischemia Arrhythmias: Occasional PVCs, occasional PACs Test terminated due to: Completion of protocol Electronically Signed By: Mary Jane Mcghee PA-C ??03/13/2021 2:21 PM SCAN FINDINGS: Nuclear imaging of the left ventricle reveals normal cavity size at stress, no change with rest imaging. Myocardial perfusion imaging of the left ventricle reveals no significant areas of ischemia or infarction. Gated SPECT imaging was performed which demonstrated normal LV function and thickening with a calculated LVEF of 71 % IMPRESSION: Normal normal. ?? Regadenoson ??stress test with nuclear imaging. ??The patient had no chest pain and no EKG changes suggestive ischemia. Nuclear imaging revealed no areas of ischemia or infarction ?? TID was normal at 0.94. Gated SPECT imaging was performed and revealed a normal LV function and thickening with an LVEF of 71 % Electronically Signed By: Casey Hendricks MD 03/13/2021 4:30 PM Lizandro Gibbs MD CARDIOLOGY [facility] documented in this encounter Visit Diagnoses Diagnosis Chest pain, unspecified type- Primary Chronic obstructive pulmonary disease, unspecified COPD type (HCC) Chest pain, unspecified type Chronic obstructive pulmonary disease, unspecified COPD type (HCC) documented in this encounter Care Teams Cleaning Technician Relationship Specialty Start Date End Date Lizandro Gibbs MD PCP - General Internal Medicine 04/20/12 Stuart Cardenas MD Medical [facility] [address] [place] [address] Specialist Cardiovascular Disease 09/16/21 3 documented as of this encounter
--- OUTSIDE RECORDS SUMMARY | 2024-09-12 18:50 | XMS_ITS | Encounter Summary ---
Author Organization [facility] Address [address] [place] [address] Care Team Providers Care Silk Finisher Name Role Phone Lizandro Gibbs MD Primary Care Provider Stuart Shahid MD Unavailable [phone] Encounter Details Date Type Department Care Team Description 03/04/2020 Transfer Records Medical Records [address] [place] [address] Abstract, Provider Social History Tobacco Use Types [...] on filedocumented in this encounter Care Teams Silk Finisher Relationship Specialty Start Date End Date Lizandro Gibbs MD PCP - General Internal Medicine 04/20/12 Stuart Cardenas MD Medical [facility] [address] [place] [address] Specialist Cardiovascular Disease 09/16/21 6 3 documented as of this encounter
--- OUTSIDE RECORDS SUMMARY | 2024-09-12 18:50 | XMS_ITS | Encounter Summary ---
Author Organization [facility] Address [address] [place] [address] Care Team Providers Care Landscaping Crew Leader Name Role Phone Lizandro Gibbs MD Primary Care Provider Stuart Shahid MD Unavailable [phone] Encounter Details Date Type Department Care Team Description 07/06/2017 Release of Information Medical Records [address] [place] [id number] Abstract, Provider Social History Tobacco Use Types [...] on filedocumented in this encounter Care Teams Landscaping Crew Leader Relationship Specialty Start Date End Date Lizandro Gibbs MD PCP - General Internal Medicine 04/20/12 Stuart Cardenas MD Medical [facility] [address] [place] [address] Specialist Cardiovascular Disease 09/16/21 3 documented as of this encounter
--- OUTSIDE RECORDS SUMMARY | 2024-09-12 18:50 | XMS_ITS | Encounter Summary ---
Author Organization [facility] Address [address] [place] [address] Care Team Providers Care Video Editor Name Role Phone Lizandro Gibbs MD Primary Care Provider Stuart Shahid MD Unavailable [phone] Encounter Details Date Type Department Care Team Description 07/13/2006 SCAN Medical Records [address] [place] [address] Abstract, Provider Social History Tobacco Use Types [...] on filedocumented in this encounter Care Teams Video Editor Relationship Specialty Start Date End Date Lizandro Gibbs MD PCP - General Internal Medicine 04/20/[address] [place] [address] Specialist Cardiovascular Disease 09/16/21 3 documented as of this encounter
--- OUTSIDE RECORDS SUMMARY | 2024-09-12 18:50 | XMS_ITS | Encounter Summary ---
Author Organization [facility] Address [address] [place] [address] Care Team Providers Care Hair Boiler Operator Name Role Phone Lizandro Gibbs MD Primary Care Provider Stuart Shahid MD Unavailable Encounter Details Date Type Department Care Team Description 03/07/2021 Hydraulic Barker Operator Report Medical Records [address] [place] [address] Stan Brito MD Social History Tobacco Use [...] on filedocumented in this encounter Care Teams Hair Boiler Operator Relationship Specialty Start Date End Date Lizandro Gibbs MD PCP - General Internal Medicine 04/20/12 Stuart Cardenas MD Medical [facility] [address] [place] [address] Specialist Cardiovascular Disease 09/16/21 3 documented as of this encounter
--- OUTSIDE RECORDS SUMMARY | 2024-09-12 18:50 | XMS_ITS | Encounter Summary ---
Author Organization [facility] Address [address] [place] [address] Care Team Providers Care Gastroenterologist Name Role Phone Lizandro Gibbs MD Primary Care Provider Stuart Shahid MD Unavailable [phone] Encounter Details Date Type Department Care Team Description 02/17/2021 [facility] Medical Records [address] [place], [place] [id number] [place] [address] Social History Tobacco Use Types Packs/Day Years [...] on filedocumented in this encounter Care Teams Gastroenterologist Relationship Specialty Start Date End Date Lizandro Gibbs MD PCP - General Internal Medicine 04/20/12 Stuart Cardenas MD [address] [place] [address] Specialist Cardiovascular Disease 09/16/21 3 documented as of this encounter
--- OUTSIDE RECORDS SUMMARY | 2024-09-12 18:51 | XMS_ITS | Encounter Summary ---
Author Organization [facility] Address [address] [place] [address] Care Team Providers Care Professional Driver Name Role Phone Lizandro Gibbs MD Primary Care Provider Stuart Shahid MD Unavailable [phone] Encounter Details Date Type Department Care Team Description 09/11/2021 Hospital Medical Records [address] [place], [place] [phone] [place] [address] Social History Tobacco Use Types Packs/Day Years [...] on filedocumented in this encounter Care Teams Professional Driver Relationship Specialty Start Date End Date Lizandro Gibbs MD PCP - General Internal Medicine 04/20/12 Stuart Cardenas MD Medical [facility] [address] [place] [address] Specialist Cardiovascular Disease 09/16/21 3 documented as of this encounter
--- OUTSIDE RECORDS SUMMARY | 2024-09-12 18:51 | XMS_ITS | Clinical Summary ---
Author Organization [facility] Address [address] [place] [address] Care Team Providers Care Creasing And Cutting Press Feeder Name Role Phone Lizandro Gibbs MD Primary Care Provider [phone] Medical History Medical History Date Comments Essential [...] Documents on File Type Date Recorded Patient Aging Box Hand Expl anation Health Care Decision (hx) 10/07/2023 AD HEWITT DIRECTIVE Health Care Decision (hx) 10/07/2023 AD HEWITT DIRECTIVE Care Teams Creasing And Cutting Press Feeder Relationship Specialty Start Date End Date Lizandro Gibbs MD PCP - General Internal Medicine 04/20/12
--- OUTSIDE RECORDS SUMMARY | 2024-09-12 18:51 | XMS_ITS | Encounter Summary ---
Author Organization [facility] Address [address] [place] [address] Care Team Providers Care Coke Oven Patcher Name Role Phone Lizandro Gibbs MD Primary Care Provider Stuart Shahid MD Unavailable [phone] Encounter Details Date Type Department Care Team Description 10/27/2021 SCAN Medical Records [address] [place], [place] [phone] [place] [address] Social History Tobacco Use Types Packs/Day Years [...] on filedocumented in this encounter Care Teams Coke Oven Patcher Relationship Specialty Start Date End Date Lizandro Gibbs MD PCP - General Internal Medicine 04/20/12 Stuart Cardenas MD Medical [facility] [address] [place] [address] Specialist Cardiovascular Disease 09/16/21 6/2 3 documented as of this encounter
--- OUTSIDE RECORDS SUMMARY | 2024-09-12 18:51 | XMS_ITS | Encounter Summary ---
Author Organization [facility] Address [address] [place] [address] Care Team Providers Care Hvac Operations Technician Name Role Phone Lizandro Gibbs MD Primary Care Provider Stuart Shahid MD Unavailable [phone] Encounter Details Date Type Department Care Team Description 08/11/2019 SCAN Medical Records [address] [place] [address] Abstract, Provider Social History Tobacco Use Types [...] on filedocumented in this encounter Care Teams Hvac Operations Technician Relationship Specialty Start Date End Date Lizandro Gibbs MD PCP - General Internal Medicine 04/20/12 Stuart Cardenas MD Medical [facility] [address] [place] [address] Specialist Cardiovascular Disease 09/16/21 6/2 3 documented as of this encounter
--- OUTSIDE RECORDS SUMMARY | 2024-09-12 18:51 | XMS_ITS | Encounter Summary ---
Author Organization [facility] Address [address] [place] [address] Care Team Providers Care Dental Instrument Maker Name Role Phone Lizandro Gibbs MD Primary Care Provider Stuart Shahid MD Unavailable [phone] Encounter Details Date Type Department Care Team Description 01/23/2022 Hospital Medical Records [address] [place], [place] [id number] [place] [address] Social History Tobacco Use Types Packs/Day Years [...] Name Priority Date/Time Associated Diagnosis Comments OUTSIDE CT Routine 01/23/2022 documented in this encounter Results * OUTSIDE CT (01/23/2022) Provider Abstract RADIOLOGY documented in this encounter Visit Diagnoses Not on filedocumented in this encounter Care Teams Dental Instrument Maker Relationship Specialty Start Date End Date Lizandro Gibbs MD PCP - General Internal Medicine 04/20/12 Stuart Cardenas MD Medical [facility] [address] [place] [address] Specialist Cardiovascular Disease 09/16/21 6/ 3 documented as of this encounter
--- OUTSIDE RECORDS SUMMARY | 2024-09-12 18:51 | XMS_ITS | Encounter Summary ---
Author Organization [facility] Address [address] [place] [address] Care Team Providers Care Email Designer Name Role Phone Lizandro Gibbs MD Primary Care Provider Stuart Shahid MD Unavailable [phone] Reason for Visit * Reason Onset Date Comments other 08/10/2022 Encounter Details Date Type Department Care Team Description 08/10/2022 Telephone Cardio PVC POC [address] [place] [address] Stuart Cardenas MD [address] [place] [address] other Social History Tobacco Use Types Packs/Day Years [...] encounter Miscellaneous Notes * Telephone Encounter - Sarina Nicholas C.M.A. - 08/11/2022 4:27 PM EST Pt made aware of recommendations and in agreement. Med module updated * Telephone Encounter - Ellyn Andrade NP - 08/11/2022 4:20 PM EST Have her stop the lisinopril and see if this gets better. Call early next week. Thank you. * Telephone Encounter - Kylie Medrano RN - 08/11/2022 2:28 PM EST FYI: Pt wanted you to know she has had a cough for one month. Went to see dr last week was put on antibiotics and is feeling somewhat better Continues to have thick mucus which she is calling back today to discuss.. Denies SOB, PND, Orthopnea, CP, edema, dizziness. Wears O2 2 L NC at night Has beendrinking a lot of water which helps with the cough. Pt requested reminder for appt in November. Reminder mailed to home address after confirming it with pt. * Telephone Encounter - Kylie Medrano RN - 08/10/2022 9:44 AM EST LMOM for pt to return call * Telephone Encounter - Sangeeta Montague - 08/10/2022 8:19 AM EST Patient requested to speak the provider. Patient said that she had been directed to see Dr Cardenas as soon as possible due to a persistent cough that comes with pain in her chest. Patient said the cough just wont go away . Please call patient at [phone]. documented in this encounter Plan of Treatment Not on file documented as of this encounter Visit Diagnoses Not on filedocumented in this encounter Care Teams Email Designer Relationship Specialty Start Date End Date Lizandro Gibbs MD PCP - General Internal Medicine 04/20/12 Stuart Cardenas MD Medical [facility] [address] [place] [address] Specialist Cardiovascular Disease 09/16/21 3 documented as of this encounter
--- OUTSIDE RECORDS SUMMARY | 2024-09-12 18:51 | XMS_ITS | Encounter Summary ---
Author Organization [facility] Address [address] [place] [address] Care Team Providers Care Plate Washer Name Role Phone Lizandro Gibbs MD Primary Care Provider Stuart Shahid MD Unavailable [phone] Encounter Details Date Type Department Care Team Description 10/19/2017 SCAN Medical Records [address] [place] [address] Abstract, Provider Social History Tobacco Use Types [...] on filedocumented in this encounter Care Teams Plate Washer Relationship Specialty Start Date End Date Lizandro Gibbs MD PCP - General Internal Medicine 04/20/12 Stuart Cardenas MD Medical [facility] [address] [place] [address] Specialist Cardiovascular Disease 09/16/21 6/ 3 documented as of this encounter
--- OUTSIDE RECORDS SUMMARY | 2024-09-12 18:51 | XMS_ITS | Encounter Summary ---
Author Organization [facility] Address [address] [place] [address] Care Team Providers Care Chef Saucier Name Role Phone Lizandro Gibbs MD Primary Care Provider Stuart Shahid MD Unavailable [phone] Encounter Details Date Type Department Care Team Description 07/20/2022 SCAN Medical Records [address] [place] [address] Abstract, Provider Social History Tobacco Use Types [...] on filedocumented in this encounter Care Teams Chef Saucier Relationship Specialty Start Date End Date Lizandro Gibbs MD PCP - General Internal Medicine 04/20/12 Stuart Cardenas MD Medical [facility] [address] [place] [address] Specialist Cardiovascular Disease 09/16/21 6/ 3 documented as of this encounter
--- OUTSIDE RECORDS SUMMARY | 2024-09-12 18:51 | XMS_ITS | Encounter Summary ---
Author Organization [facility] Address [address] [place] [address] Care Team Providers Care Heel Seat Sander Name Role Phone Lizandro Gibbs MD Primary Care Provider Stuart Shahid MD Unavailable [phone] Encounter Details Date Type Department Care Team Description 09/01/2021 SCAN Medical Records [address] [place] [address] Abstract, Provider Social History Tobacco Use Types [...] on filedocumented in this encounter Care Teams Heel Seat Sander Relationship Specialty Start Date End Date Lizandro Gibbs MD PCP - General Internal Medicine 04/20/12 Stuart Cardenas MD Medical [facility] [address] [place] [address] Specialist Cardiovascular Disease 09/16/21 6/ 3 documented as of this encounter
--- OUTSIDE RECORDS SUMMARY | 2024-09-12 18:51 | XMS_ITS | Encounter Summary ---
Author Organization [facility] Address [address] [place] [address] Care Team Providers Care Home Demonstration Agent Name Role Phone Lizandro Gibbs MD Primary Care Provider Stuart Shahid MD Unavailable [phone] Encounter Details Date Type Department Care Team Description 02/27/2019 Release of Information Medical Records [address] [place] [address] Abstract, Provider Social History Tobacco Use Types [...] on filedocumented in this encounter Care Teams Home Demonstration Agent Relationship Specialty Start Date End Date Lizandro Gibbs MD PCP - General Internal Medicine 04/20/12 Stuart Cardenas MD Medical [facility] [address] [place] [address] Specialist Cardiovascular Disease 09/16/21 3 documented as of this encounter
--- OUTSIDE RECORDS SUMMARY | 2024-09-12 18:51 | XMS_ITS | Encounter Summary ---
Author Organization [facility] Address [address] [place] [address] Care Team Providers Care Nuclear Medical Tech Name Role Phone Lizandro Gibbs MD Primary Care Provider Stuart Shahid MD Unavailable [phone] Encounter Details Date Type Department Care Team Description 04/14/2016 Hospital Medical Records [address] [place] [address] Social History Tobacco Use Types Packs/Day Years [...] on filedocumented in this encounter Care Teams Nuclear Medical Tech Relationship Specialty Start Date End Date Lizandro Gibbs MD PCP - General Internal Medicine 04/20/12 Stuart Cardenas MD Medical [facility] [address] [place] [address] Specialist Cardiovascular Disease 09/16/21 3 documented as of this encounter
--- OUTSIDE RECORDS SUMMARY | 2024-09-12 18:51 | XMS_ITS | Encounter Summary ---
Author Organization [facility] Address [address] [place] [address] Care Team Providers Care Research & Analytics Manager Name Role Phone Lizandro Gibbs MD Primary Care Provider Stuart Shahid MD Unavailable [phone] Encounter Details Date Type Department Care Team Description 04/15/2016 SCAN Medical Records [address] [place] [address] Lizandro Gibbs MD Social History Tobacco Use [...] Date/Time Associated Diagnosis Comments OUTSIDE LAB Routine 04/15/2016 documented in this encounter Results * OUTSIDE LAB (04/15/2016) Provider Abstract LAB documented in this encounter Visit Diagnoses Not on filedocumented in this encounter Care Teams Research & Analytics Manager Relationship Specialty Start Date End Date Lizandro Gibbs MD PCP - General Internal Medicine 04/20/12 Stuart Cardenas MD [address] [place] [address] Specialist Cardiovascular Disease 09/16/21 3 documented as of this encounter
--- OUTSIDE RECORDS SUMMARY | 2024-09-12 18:51 | XMS_ITS | Encounter Summary ---
Author Organization [facility] Address [address] [place] [address] Care Team Providers Care Special Education Professor Name Role Phone Lizandro Gibbs MD Primary Care Provider Stuart Shahid MD Unavailable [phone] Encounter Details Date Type Department Care Team Description 06/25/2017 Transfer Records Medical Records [address] [place] [address] Abstract, Provider Social History Tobacco Use Types [...] on filedocumented in this encounter Care Teams Special Education Professor Relationship Specialty Start Date End Date Lizandro Gibbs MD PCP - General Internal Medicine 04/20/12 Stuart Cardenas MD Medical [facility] [address] [place] [address] Specialist Cardiovascular Disease 09/16/21 6 3 documented as of this encounter
--- OUTSIDE RECORDS SUMMARY | 2024-09-12 18:51 | XMS_ITS | Encounter Summary ---
Author Organization [facility] Address [address] [place] [address] Care Team Providers Care Motor Grader Operator Name Role Phone Lizandro Gibbs MD Primary Care Provider Stuart Shahid MD Unavailable [phone] Encounter Details Date Type Department Care Team Description 07/03/2022 Hospital Medical Records [address] [place], [place] [address] [place] [address] Social History Tobacco Use Types Packs/Day Years [...] Date/Time Associated Diagnosis Comments OUTSIDE EKG Routine 07/03/2022 OUTSIDE LAB Routine 07/03/2022 OUTSIDE LAB Routine 07/03/2022 documented in this encounter Results * OUTSIDE LAB (07/03/2022) Provider Abstract LAB * OUTSIDE LAB (07/03/2022) Provider Abstract LAB * OUTSIDE EKG (07/03/2022) Provider Abstract CARDIOLOGY documented in this encounter Visit Diagnoses Not on filedocumented in this encounter Care Teams Motor Grader Operator Relationship Specialty Start Date End Date Lizandro Gibbs MD PCP - General Internal Medicine 04/20/12 Stuart Cardenas MD [address] [place] [address] Specialist Cardiovascular Disease 09/16/21 3 documented as of this encounter
--- OUTSIDE RECORDS SUMMARY | 2024-09-12 18:51 | XMS_ITS ---
Author Organization [facility] Care Team Providers Care Guideman Name Role Phone Ellyn Cadena Unavailable Unavailable Rah Jackson Unavailable Unavailable Kendra Puentes Unavailable Unavailable Natalya Werner Unavailable Unavailable Allergies and adverse reactions No Known Allergies Care Team Name Role Address Phone Organization Dates Rah Jackson PCP [address] [facility] [address], [place], [address], [facility] (Office): [facility] 09/03/2023 - 09/17/2023 Ellyn Cadena Attending Physician [address] [place] [address], [address], [facility] (Office): [facility] 09/03/2023 - 09/17/2023 Kendra Puentes Attending Physician [address] [place] [address], [address], [facility] (Office): [facility] 09/03/2023 - 09/17/2023 Natalya Werner Attending Physician [address] [place], [address], [facility] (Office): [facility] 09/03/2023 - 09/17/2023 Immunizations Immunization Status Vaccine [...] completed Pneumococcal conjugate vaccine 15-valent (PCV15), polysaccharide [id number] conjugate, adjuvant, preservative free 215 CVX created date: 09/06/2023 administere d date: 12/03/2022 Mental Status Section Date Assessment Total Score Description 09/17/2023 BIMS 15 cognitively int act CAM 0 No delirium ind icated 09/09/2023 BIMS 15 cognitively int act CAM 0 No delirium ind icated Problems Problem # Description Date of onset Resolved Date Code CodeSystem Concern Status 1 COVID-[address] active 2 CHRONIC ATRIAL FIBRILLATION, UNSPECIFIED [address] active 3 [address]KALEM[address] active 4 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 [address] active 5 ANXIETY DISORDER, UNSPECIFIED [address] active 6 CHRONIC OBSTRUCTIVE PULMONARY DISEASE, UNSPECIFIED [address] active 7 DEPENDENCE ON SUPPLEMENTAL OXYGEN [address] active 8 DIFFICULTY IN WALKING, NOT ELSEWHERE CLASSIFIED [address] active 9 HYPERLIPIDEMIA, UNSPECIFIED [address] active 10 MAJOR DEPRESSIVE DISORDER, RECURRENT, UNSPECIFIED [address] active 11 MUSCLE WEAKNESS (GENERALIZED) [address] active 12 PULMONARY HYPERTENSION, UNSPECIFIED [address] active 13 RESTLESS LEGS SYNDROME [address] active 14 SHORTNESS OF BREATH [address] active 15 SOLITARY PULMONARY NODULE [address] active 16 UNSTEADINESS ON FEET [address] active Reason for Referral No Reasons for Referral Entered Social History Social History Observation Description Start Date End Date Code Code System Current Smoking Status Tobacco smoking consumption unknown 394940700 SNOMED CT Sex Assigned At Female 1940 [address]-3 [facility] Vital Signs Code Code System Vitals Name Values and Units Timing Information 9279-1 INC Respiratory Rate Value=18.0 Units=/m in 09/17/2023 78149-6 LOINC O2 % BldC Oximetry Value=92.0 Units= % 09/17/2023 00356-0 LOINC Pain Level Value=0.0 09/17/2023 8462-4 [facility] Blood Pressure-Diastolic Value=74 Un its=mmHg 09/17/2023 8480-6 [facility] Blood Pressure-Systolic Vkqzq=185 Un its=mmHg 09/17/2023 8310-5 [facility] Body Temperature Value=97.6 Units=?? F 09/17/2023 8867-4 [facility] Heart rate Value=84.0 Units=/min 32291-3 [facility] Weight Tkzcv=825.8 Units=Lbs 05/2024 8302-2 [facility] Height Value=63.0 Units=Inches 09/03/2023
--- OUTSIDE RECORDS SUMMARY | 2024-09-12 18:51 | XMS_ITS | Encounter Summary ---
Author Organization [facility] Address [address] [place] [address] Care Team Providers Care Carton Forming Machine Adjuster Name Role Phone Lizandro Gibbs MD Primary Care Provider Stuart Shahid MD Unavailable [phone] Encounter Details Date Type Department Care Team Description 03/17/2019 Psychological Aide Report Medical Records [address] [place] [address] Brook Bansal PA-C [address] [place] [id number] Social History Tobacco Use Types Packs/Day Years [...] on filedocumented in this encounter Care Teams Carton Forming Machine Adjuster Relationship Specialty Start Date End Date Lizandro Gibbs MD PCP - General Internal Medicine 04/20/12 Stuart Cardenas MD [address] [place] [address] Specialist Cardiovascular Disease 09/16/21 6/ 3 documented as of this encounter
--- OUTSIDE RECORDS SUMMARY | 2024-09-12 18:51 | XMS_ITS | Encounter Summary ---
Author Organization [facility] Address [address] [place] [address] Care Team Providers Care Home Appliance Washing Machine Mechanic Name Role Phone Lizandro Gibbs MD Primary Care Provider Stuart Shahid MD Unavailable [phone] Encounter Details Date Type Department Care Team Description 05/05/2021 SCAN Medical Records [address] [place] [address] Abstract, Provider Social History Tobacco Use Types [...] filedocumented in this encounter Care Teams Home Appliance Washing Machine Mechanic Relationship Specialty Start Date End Date Lizandro Gibbs MD PCP - General Internal Medicine 04/20/12 Stuart Cardenas MD Medical [facility] [address] [place] [address] Specialist Cardiovascular Disease 09/16/21 6/ 3 documented as of this encounter
[2024-09-12] MEDS: dilTIAZem HCL 125 MG in 0.9 % Sodium Chloride 100 ML 10 MG IVCONT (19:35)
--- NOTE | 2024-09-12 21:40 | PHA.MEDREC ---
Addendum entered by Mahsa Gomez RPh 09/12/24 22:06: Med rec was reviewed by [facility]. Original Note: Pharmacy Consult ? Medication Reconciliation Pharmacy has completed the medication reconciliation. Spoke with patient and one of the patient daughters at bedside. Patients daughter had her sister send her a copy of their moms medications and the sister was able to send their moms current patient portal list. It indicated the patient is now taking Diltiazem 180mg and is now taking 2 tabs daily and when I asked about that the family was not so sure nor the patient and stated This this is up to date and everything is being filled at [facility] pharmacy . The patient confirmed she is still taking the Prednisone taper regimen and the daughter confirmed she started it last Wednesday and the patient stated she has enough at home to be done on September 17. The patient confirmed with me she is taking the ropinerol 0.25mg tab and states she takes 1 tab (0.25mg) in the morning and 2 tabs (0.5mg) at bedtime. The family confirmed the patient is still taking the Trazodone 50mg tablet as needed for sleep and states they still have some from February 2024. The patient and patients daughter confirmed the patient last took her medications yesterday.
[2024-09-12] MEDS: Apixaban 5 MG TABLET PO (22:58)
[2024-09-13] VITALS: BP 128/60; PULSE 96; RESP 20; TEMP 37; O2SAT 99
[2024-09-13] MEDS: Digoxin 0.5 MG/2 ML AMPUL 0.25 MG IVPUSH ×2 (00:53→05:45)
[2024-09-13 03:20] VITALS: BP 138/74; PULSE 95; RESP 20; TEMP 36.8; O2SAT 96
[2024-09-13] MEDS: ALPRAZolam 0.25 MG TABLET PO (03:20)
[2024-09-13 03:36] VITALS: BP 138/74; PULSE 95; RESP 20; TEMP 37; O2SAT 96
[2024-09-13 06:22] LABS: MANUAL DIFF FLAG NO
[2024-09-13 06:26] LABS: Basophils Percent Auto 0.2 % (0-2); Eosinophils Absolute Auto 0.1 X10*3/uL (0.0-0.4); Eosinophils Percent Auto 1.2 % (0-4); Hematocrit 33.5 % (37.0-47.0); Hemoglobin 9.6 g/dl (12.0-16.0); Imm Gran Abs Auto 0.22 X10*3/uL (0.00-0.03); Imm Gran Pct Auto 2.2 % (0.0-0.4); Lymphocytes Absolute Auto 2.1 X10*3/uL (1.2-4.9); Lymphocytes Percent Auto 20.9 % (20-40); Mean Corpuscular HGB Conc 28.7 g/dl (31.0-35.0); Mean Corpuscular Hemoglobin 24.4 pg (27.0-33.0); Mean Platelet Volume 10.4 fL (9.4-12.3); Monocytes Absolute Auto 1.2 X10*3/uL (0.1-1.2); Monocytes Percent Auto 11.7 % (2-11); Neutrophils Absolute Auto 6.4 x10*3/uL (2.0-8.3); Neutrophils Percent Auto 63.8 % (45-73); Platelet Count 511 X10*3/uL (160-400); Red Blood Count 3.94 X10*6/uL (4.20-5.50); White Blood Count 10.1 X10*3/uL (4.8-10.8)
[2024-09-13 06:40] LABS: Anion Gap 10 (12-20); Blood Urea Nitrogen 12 mg/dL (9-16); Calcium 8.6 mg/dL (8.4-10.2); Carbon Dioxide 33 mmol/L (22-29); Chloride 103 mmol/L (96-108); Creatinine Clr Calc Pharmacy 76.4; Estimated Glomerular Filt Rate > 60; Glucose Random 80 mg/dL (60-115); Potassium 3.2 mmol/L (3.3-5.1); Sodium 143 mmol/L (135-145)
--- NOTE | 2024-09-13 07:00 | CA_ITS ---
Transthoracic Echocardiogram Patient (Last, First, Middle): Tanya Joya, Gender: Female Date of : 1940 Age: 83 Procedure Date: 09/13/2024 Procedure Type: Transthoracic Echocardiogram Location: [facility] Height: 165.1 cm Weight: 76.2 kg BSA: 1.84 m2 Heart Rate: 91 bpm BP: 138 / 74 mmHg Cable Splicer: SB Referring MD: Rasheeda HUYNH Symptoms: afib rvr Study Quality: Adequate w contrast ECG Rhythm: Atrial Fibrillation Conclusions: - The left ventricular systolic function is normal. The calculated ejection fraction is 56% by biplane method. - There is moderate calcification of the aortic valve. - There is mild mitral annular calcification. - Mild to moderate pulmonary hypertension is present. Findings Procedure Information Contrast agent, definity, is being given per protocol without apparent complications. The quality of the study was technically difficult. The study quality is limited by lung artifact. Left Ventricle Normal left ventricular cavity size. There is mildly increased left ventricular wall thickness. The left ventricular systolic function is normal. The calculated ejection fraction is 56% by biplane method. There is no evidence of regional wall motion abnormalities. Diastolic function is indeterminate on the basis of available data. Right Ventricle Normal right ventricular cavity size and systolic function. Atria Both atria are normal in size. Aortic Valve There is moderate calcification of the aortic valve. There is no aortic valve stenosis. There is no aortic valve regurgitation. Mitral Valve There is mild mitral annular calcification. There is no mitral valve regurgitation. There is no mitral valve stenosis. Pulmonic Valve The pulmonic valve is likely normal. Tricuspid Valve There is mild tricuspid valve regurgitation. Mild to moderate pulmonary hypertension is present. Great Vessels The asc aorta is normal in size. Venous The inferior vena cava was not well visualized. The inferior vena cava is mildly dilated. Pericardium/Pleural There is no evidence of pericardial effusion. Prior Study Comparison No significant change compared to prior study dated: 08/27/2023. Measurements 2D Linear Measurements IVSd: 1.10 0.6-0.9/0.6-1.0 cm LVIDd: 4.55 3.9-5.3/4.2-5.9 cm LVIDd Index: 2.47 2.4-3.2/2.2-3.1 cm/m2 LVIDs: 2.93 2.0-3.6 cm LVPWd: 1.04 0.7-1.1 cm LA Diam: 3.90 2.7-3.8/3.0-4.0 cm LAIDs Index: 2.12 1.5-2.3 cm/m2 LV Mass: 213.43 67-162/88-224 g LV Mass Index: 116.00 43-95/49-115 g/m2 LVOT Diam: 2.10 3.0+(-)1.3 cm 2D Systolic Function EF 4C: 59.70 >55% EF 2C: 53.80 >55% EF BiP: 56.20 >55% Mitral Valve MV Pk E: 1.03 E'Lateral: 12.10 E'Medial: 7.91 E/E' Med: 13.00 E/E' Lat: 8.50 Aortic Valve AoV Pk Eladio: 1.95 AoV Mn Eladio: 1.32 AoV VTI: 0.35 AoV Pk Grad: 15.00 Aov Mn Grad: 8.00 JODIE Cont.VTI: 2.17 LVOT LVOT Pk Eladio: 1.06 LVOT Mn Eladio: 0.76 LVOT VTI: 0.22 LVOT Pk Grad: 4.00 LVOT Mn Grad: 3.00 LVOT Diam: 2.10 LVOT Area: 3.46 Diastolic Function MV Pk E: 1.03 E'Medial: 7.91 E/E' Med: 13.00 E' Laterial: 12.10 E/E' Lat: 8.50 Right Ventricle TAPSE (mm): 18.40 TVS' Eladio: 13.40 Tricuspid Valve TR Pk Eladio: 3.14 TR Pk Grad: 39.00 RA Press: 15.00 RVSP: 54.00 Great Vessels Aorta Sinus of Valsalva: 3.30 2.0-3.5 cm Ao Asc: 3.10 2.1-3.4 cm Pulmonary Veins Pulm Vein S/D 0.50 Pulmonary Valve PV Pk Eladio: 1.29 Peak PV Grad: 7.00 Updated in Other Vendor System with Status of Final Ruben Hickey MD electronically signed on 09/13/2024 10:57:13 AM with status of Final
--- NOTE | 2024-09-13 07:27 | PC.NURSE ---
Pt admitted overnight from ED on Cardizem gtt for afib RVR. Around 0100 pt HR afib 70s-80s cardizem gtt held per protocol, overnight provider made aware. Digoxin load administered per MAR
[2024-09-13 07:41] VITALS: BP 146/64; PULSE 94; RESP 20; TEMP 37.2; O2SAT 98
--- NOTE | 2024-09-13 09:14 | PM.CNCAR ---
History of Present Illness History of Present Illness Date of Service: 09/13/24 Chief complaint: Afib rvr Narrative: This is a cardiology consultation regarding atrial fibrillation rapid rate. To recall, patient has a history of paroxysmal atrial fibrillation. She came to the clinic for a follow-up visit today. Recent history of anemia/suspected GI blood loss. In that context, she had received blood transfusions, underwent GI workup and then got discharged home. She was on diltiazem for atrial fibrillation. However, when she came to the clinic, she was in rapid atrial fibrillation in the 130s. She was asked to risk for a while but as the rate did not improve, she was sent to the ER for admission. It appears that she got IV diltiazem as well as digoxin and after that, the rate improve. Subsequently, she was admitted for further care. Today, rate is around 90-100/Min. She states she feels okay. No new concerns. Review of Systems Review of Systems: Yes all other systems are reviewed and are negative Constitutional: Constitutional: Reports as per HPI and Reports no additional constitutional complaints Eyes: Eyes: Reports as per HPI and Denies no additional eye complaints ENT: Denies system reviewed and no additional complaints, except as documented and Reports as per HPI Cardiovascular: Cardiovascular: Reports as per HPI, Reports no additional cardiovascular complaints, Denies acrocyanosis, Denies cool extremities, Denies chest pain, Denies leg edema, Denies lightheadedness, Denies palpitations and Denies dyspnea Respiratory: Respiratory: Reports as per HPI, Denies no additional respiratory complaints and Denies dyspnea Gastrointestinal: Gastrointestinal: Reports as per HPI and Denies no additional gastrointestinal complaints Genitourinary: Genitourinary: Reports as per HPI Musculoskeletal: Musculoskeletal: Reports no additional musculoskeletal complaints and Reports as per HPI Integumentary/Breasts: Skin/Breast: Reports system reviewed and no additional complaints, except as docu Neurologic: Reports system reviewed and no additional complaints, except as documented and Reports as per HPI Psychiatric: Psychiatric: Reports no additional psychiatric complaints and Reports as per HPI Endocrine: Endocrine: Reports no additional endocrine complaints, Reports as per HPI and Denies palpitations Hematologic/Lymphatic: Hematologic/Lymphatic: Reports no additional hematologic/lymphatic complaints and Reports as per HPI Allergic/Immunologic: Allergic/Immunologic: Reports no additional allergic/immunologic complaints and Reports as per HPI [facility] Past Medical History Medical History (Updated 09/13/24 @ 09:17 by Ruben Hickey MD) Atrial fibrillation with rapid ventricular response COPD (chronic obstructive pulmonary disease) PAF (paroxysmal atrial fibrillation) Lung nodule Pleural effusion Pulmonary hypertension Mitral annular calcification Aortic valve calcification Cough Sinusitis Chronic respiratory failure Pneumonia Family History Family History Brother Myocardial infarction Father Stroke Maternal Grandmother Bone cancer Surgical History Surgical History No pertinent past surgical history Social History Social History Household Members: Children Household Members Other:: Daughter and family Housing: House Are you a primary nonfarm animal caretaker to a significant other at home: No Do you presently have visiting nurse or other home services: No Alcohol intake: never Patient Tobacco Use Status: Former Tobacco user Tobacco use type: Cigarette Smoked in Last 30 Days: No e-Cigarette/Vaping Use: Never Used Second Hand Smoke Exposure: No Use of substances other than those prescribed or required for medical reasons: No Currently Displaying Signs/Symptoms of Drug Intoxication Withdrawal: No Have you been hit, kicked, punched, or otherwise hurt by someone within the past year? If so, by whom?: No Is there a partner from a previous relationship who is making you feel unsafe now?: No Are you made to feel afraid or neglected: No Advance Directives: Yes Advance Directives on File: Yes Advance Directives Date on File: 06/21/23 Do you have a plan to hurt others: No Plan Recently lost weight without trying: No How much weight loss: Not applicable Eating poorly because of decreased appetite: No Nutrition screen score: 0 Nutrition Risks: No Nutritional Risk Patient : No service: No Current occupational status: retired [employer] Allergies Allergy/AdvReac Type Severity Reaction Status Date / Time No Known Allergies Allergy Verified 09/12/24 15:22 Active Medications: Current Medications Acetaminophen (Acetaminophen 325 Mg Tablet) 650 mg PO Q6H PRN PRN Reason: Pain, Mild 1-3,fever,headache Albuterol Sulfate (Albuterol Sulfate 90 Mcg 8 Gm Inhaler) 1 puff INHALE Q4H PRN PRN Reason: shortness of breath or wheezing Albuterol Sulfate (Albuterol Sulfate (0.083%) 2.5 Mg/3 Ml Vial.Neb) 2.5 mg INHALE Q6H PRN PRN Reason: Wheezing Alprazolam (Alprazolam 0.25 Mg Tablet) 0.25 mg PO DAILY PRN PRN Reason: Anxiety Last Admin: 09/13/24 03:20 Dose: 0.25 mg Apixaban (Apixaban 5 Mg Tablet) 5 mg PO BID [facility] Last Admin: 09/12/24 22:58 Dose: 5 mg Aspirin (Aspirin Enteric Coated 81 Mg Tablet.Dr) 81 mg PO DAILY [facility] Azelastine HCl (Azelastine Hcl Nasal 137 Mcg/[place] 30 Ml) 1 spray NOSTRIL-B BID [facility] Calcium Carbonate (Calcium Carbonate 750 Mg Tab.Chew) 750 mg PO Q4H PRN PRN Reason: Heartburn Escitalopram Oxalate (Escitalopram Oxalate 20 Mg Tablet) 20 mg PO DAILY [facility] Famotidine (Famotidine 20 Mg Tablet) 20 mg PO BEDTIME PRN PRN Reason: Acid Reflux Ferrous Sulfate (Ferrous Sulfate 324 Mg Tablet.Dr) 324 mg PO DAILY [facility] Fluticasone Propionate (Fluticasone Propionate Nasal 16 Gm [place]) 1 spray NOSTRIL-B DAILY PRN PRN Reason: allergies Fluticasone/Umeclidinium/Vilanterol (Fluticasone/Umeclidinium/Vilanterol 100/62.5/25 Blst.W.Dev) 1 puff INHALE RDAILY [facility] Last Admin: 09/13/24 07:51 Dose: Not Given Furosemide (Furosemide 40 Mg Tablet) 40 mg PO BID [facility]; Protocol Gabapentin (Gabapentin 300 Mg Capsule) 300 mg PO BEDTIME [facility] Guaifenesin (Guaifenesin 200 Mg/10 Ml 10 Ml Liquid) 10 ml PO Q4H PRN PRN Reason: Cough Guaifenesin/Codeine Phosphate (Guaifen/Codeine Sf 200/20/10ml 10 Ml Liquid) 10 ml PO Q6H PRN PRN Reason: cough Diltiazem HCl 125 mg/ Sodium (Chloride) 125 mls @ 0 mls/hr IVCONT .Q0M [facility]; Protocol Last Titration: 09/13/24 00:55 Dose: 0 mg/hr, 0 mls/hr Ipratropium [place] (Ipratropium [place] Chan 0.06 % 15 Ml [place]) 2 spray NOSTRIL-B QID [facility] Magnesium Hydroxide (Milk Of Magnesia 30 Ml Oral.Susp) 30 ml PO DAILY PRN PRN Reason: Constipation Melatonin (Melatonin 3 Mg Tablet) 6 mg PO BEDTIME PRN PRN Reason: Insomnia Montelukast Sodium (Montelukast Sodium 10 Mg Tablet) 10 mg PO BEDTIME [facility] Pravastatin Sodium (Pravastatin Sodium 40 Mg Tablet) 40 mg PO DAILY [facility] Prednisone (Prednisone 20 Mg Tablet) 20 mg PO DAILY [facility] Stop: 09/14/24 09:01 Prednisone (Prednisone 10 Mg Tablet) 10 mg PO DAILY [facility] Stop: 09/17/24 09:01 Ropinirole HCl (Ropinirole Hcl 0.5 Mg Tablet) 0.5 mg PO BEDTIME [facility] Ropinirole HCl (Ropinirole Hcl 0.25 Mg Tablet) 0.25 mg PO DAILY [facility] Sodium Chloride (0.9 % Sodium Chloride Flush 3 Ml Syringe) 3 ml IVFLUSH QSHIFT [facility] Last Admin: 09/12/24 22:58 Dose: Not Given Trazodone HCl (Trazodone Hcl 50 Mg Tablet) 50 mg PO BEDTIME PRN PRN Reason: sleep Home Medications ?Medication ?Instructions ?Recorded ?Confirmed ?Last Taken ?Type albuterol sulfate 2.5 mg/3 mL 2.5 mg inhalation Q6H PRN Wheezing 03/07/21 09/12/24 09/11/24 History (0.083 %) solution for nebulization famotidine 20 mg tablet 20 mg PO BEDTIME PRN Acid Reflux 03/07/21 09/12/24 08/24/24 History pravastatin 40 mg tablet 40 mg PO DAILY 03/07/21 09/12/24 09/11/24 History turmeric root extract 500 mg 500 mg PO DAILY 09/19/21 09/12/24 09/11/24 History capsule Oxygen Home Use 09/22/22 04/03/24 Unknown History nebulizers 09/22/22 04/03/24 Unknown History alprazolam 0.25 mg tablet 0.25 mg PO DAILY PRN Anxiety 08/26/23 09/12/24 08/24/24 History apixaban 5 mg tablet (Eliquis) 5 mg PO BID 08/26/23 09/12/24 09/11/24 History citalopram 20 mg tablet 40 mg PO DAILY 08/26/23 09/12/24 09/11/24 History fluticasone propionate 50 50 mcg intranasal DAILY PRN 08/26/23 09/12/24 08/24/24 History mcg/actuation nasal allergies spray,suspension (Flonase Allergy Relief) furosemide 40 mg tablet 40 mg PO BID 08/26/23 09/12/24 09/11/24 History ropinirole 0.25 mg tablet 0.25 mg PO DAILY 08/26/23 09/12/24 09/11/24 History albuterol sulfate 90 mcg/actuation 1 puff inhalation Q4H PRN 08/25/24 09/12/24 09/11/24 History aerosol inhaler shortness of breath or wheezing biotin 10,000 mcg chewable tablet 10,000 mcg PO DAILY 08/25/24 09/12/24 09/11/24 History (Hair, Skin and Nails (biotin)) calcium 600 mg (as 1 tab PO TID 08/25/24 09/12/24 09/11/24 History carbonate)-vitamin D3 5 mcg (200 unit) tablet fluticasone fur. 100 mcg-umeclid 1 inh PO DAILY 08/25/24 09/12/24 09/11/24 History 62.5 mcg-vilant 25 mcg inhalat.powder (Trelegy Ellipta) psyllium husk 0.4 gram capsule 0.4 g PO DAILY 08/25/24 09/12/24 09/11/24 History (Metamucil) aspirin 81 mg tablet,delayed 81 mg PO DAILY 09/12/24 09/12/24 09/11/24 History release azelastine 137 mcg (0.1 %) nasal 1 spray intranasal BID 09/12/24 09/12/24 09/11/24 History spray diltiazem HCl 180 mg 360 mg PO DAILY 09/12/24 09/12/24 09/11/24 History tablet,extended release 24 hr ipratropium bromide 42 mcg (0.06 2 spray intranasal QID 09/12/24 09/12/24 09/11/24 History %) nasal spray montelukast 10 mg tablet 10 mg PO BEDTIME 09/12/24 09/12/24 09/11/24 History mupirocin 2 % topical ointment 1 appl topical TID PRN Skin 09/12/24 09/12/24 Unknown History Infection ropinirole 0.25 mg tablet 0.5 mg PO BEDTIME 09/12/24 09/12/24 09/11/24 History trazodone 50 mg tablet 50 mg PO BEDTIME PRN sleep 09/12/24 09/12/24 09/11/24 History Physical Exam Vital Signs: Vital Signs: Last Vital Signs Temp 98.9 F 09/13/24 07:41 Pulse 94 09/13/24 07:41 Resp 20 09/13/24 07:41 BP 146/64 H 09/13/24 07:41 Pulse Ox 98 09/13/24 07:41 O2 Del Method Nasal Cannula 09/13/24 07:41 O2 Flow Rate 2 09/13/24 07:41 Oxygen Flow Rate 2 09/12/24 15:19 BMI result Body Mass Index 28.0 Const: General: comfortable and no acute distress Orientation/consciousness: patient oriented x3 HEENT: Other: Unremarkable Head: Yes normal to inspection Neck: Neck: Yes normal visual inspection Chest: Chest palpation & inspection: normal inspection of the chest Resp: Auscultation: clear to auscultation bilaterally Cardio: Palpation: normal PMI Heart sounds: S1 normal heart sound present, S2 normal heart sound present, no gallops, no murmurs and no rubs GI: Palpation (GI): Soft to palpation Back/Spine/Pelvis: Other: unremarkable Skin: General skin exam: no rashes or lesions noted Neuro: General: patient oriented x3 Extrem: General: Yes normal to inspection Psych: Mental Status: mental status grossly normal Objective Labs and Meds 09/13/24 05:50 09/13/24 05:50 Lab results: Laboratory Results - last 24 hr 09/12/24 09/12/24 09/12/24 15:30 15:37 15:48 WBC 11.4 H RBC 4.34 Hgb 10.6 L Hct 37.0 MCV 85.3 MCH 24.4 L MCHC 28.6 L RDW Not Reportable Plt Count 532 H D MPV 10.2 Immature Gran % (Auto) 2.8 H Neut % (Auto) 89.2 H Lymph % (Auto) 4.1 L Dickens % (Auto) 3.7 Eos % (Auto) 0.0 Baso % (Auto) 0.2 Lymph # (Auto) 0.5 L Dickens # (Auto) 0.4 Eos # (Auto) 0.0 Baso # (Auto) 0.0 Abs Immat Gran (auto) 0.32 H Absolute Neuts (auto) 10.2 H Absolute Nucleated RBC 0.000 Nucleated RBC % (auto) 0.0 PT 11.6 INR 1.0 APTT 23.9 L D Sodium Potassium Chloride Carbon Dioxide Anion Gap BUN Creatinine Estim Creat Clear Calc Estimated GFR Random Glucose Lactic Acid 2.0 Calcium Magnesium Total Bilirubin AST ALT Alkaline Phosphatase Troponin I High Sens 13.1 B-Natriuretic Peptide 459 H Total Protein Albumin TSH Urine Color Urine Appearance Urine pH Ur Specific Luck Urine Protein Urine Glucose (UA) Urine Ketones Urine Blood Urine Nitrite Ur Leukocyte Esterase Urine RBC Urine WBC Ur Squamous Epith Cells Urine Bacteria Hyaline Casts Influenza Type A (PCR) NEGATIVE Influenza Type B (PCR) NEGATIVE RSV RNA Qual (PCR) NEGATIVE SARS-CoV-2 RNA (RT-PCR) NEGATIVE 09/12/24 09/12/24 09/13/24 16:26 17:21 05:50 WBC 10.1 RBC 3.94 L Hgb 9.6 L Hct 33.5 L MCV 85.0 MCH 24.4 L MCHC 28.7 L RDW Not Reportable Plt Count 511 H MPV 10.4 Immature Gran % (Auto) 2.2 H Neut % (Auto) 63.8 Lymph % (Auto) 20.9 Dickens % (Auto) 11.7 H Eos % (Auto) 1.2 Baso % (Auto) 0.2 Lymph # (Auto) 2.1 Dickens # (Auto) 1.2 Eos # (Auto) 0.1 Baso # (Auto) 0.0 Abs Immat Gran (auto) 0.22 H Absolute Neuts (auto) 6.4 Absolute Nucleated RBC 0.000 Nucleated RBC % (auto) 0.0 PT INR APTT Sodium 144 143 Potassium 3.7 3.2 L Chloride 102 103 Carbon Dioxide 35 H 33 H Anion Gap 11 L 10 L BUN 17 H 12 Creatinine 0.72 0.59 Estim Creat Clear Calc 62.3 76.4 Estimated GFR > 60 > 60 Random Glucose 182 H 80 Lactic Acid Calcium 9.0 D 8.6 Magnesium 1.8 Total Bilirubin 0.2 AST 16 ALT 14 Alkaline Phosphatase 79 Troponin I High Sens B-Natriuretic Peptide Total Protein 6.3 L Albumin 3.2 L TSH 0.64 Urine Color Dark Yellow Urine Appearance Clear Urine pH 6.0 Ur Specific Luck >= 1.030 H Urine Protein 30 (1+) H Urine Glucose (UA) 500 H Urine Ketones Trace Urine Blood Negative Urine Nitrite Negative Ur Leukocyte Esterase Negative Urine RBC 0-2 Urine WBC 0-5 Ur Squamous Epith Cells 6-10 Urine Bacteria None Seen Hyaline Casts 0-2 Influenza Type A (PCR) Influenza Type B (PCR) RSV RNA Qual (PCR) SARS-CoV-2 RNA (RT-PCR) Imaging Radiologist's impression: Impressions Chest X-Ray 09/12/24 15:33 IMPRESSION: No acute cardiopulmonary process seen. Previously seen mild blunting of bilateral CP angles likely small pleural effusions has resolved. Electronically signed by: Olayinka Martinez MD 09/12/2024 04:38 PM EDT RP Assessment and Plan (1) Atrial fibrillation with rapid ventricular response: Status: Acute Plan EKG on admission with atrial fibrillation at a rate of 125/Min with nonspecific ST-T changes. Hemoglobin is 9.6. High sensitivity troponin within range. Cardiac BNP is 459, lower than last week. Overall, it has been up and down. Echocardiogram with LVEF of 65-70%. Moderately dilated left atrium. Early aortic stenosis. Pulmonary hypertension. Overall, may continue diltiazem for rate control. Add digoxin. Anticoagulation. We had also discussed about Watchman device due to history of anemia/GI blood loss. To be decided. Follow-up in clinic. Procedures Date of Service Date of Service: 09/13/24
[2024-09-13] MEDS: Potassium Chloride ER 20 MEQ TAB.ER.PRT 40 MEQ PO (09:31)
[2024-09-13] MEDS: 0.9 % Sodium Chloride Flush 3 ML SYRINGE IVFLUSH (09:31)
[2024-09-13] MEDS: rOPINIRole HCL 0.25 MG TABLET PO (09:32)
[2024-09-13] MEDS: Furosemide 40 MG TABLET PO (09:32)
[2024-09-13] MEDS: Aspirin Enteric Coated 81 MG TABLET.DR PO (09:32)
[2024-09-13] MEDS: Pravastatin Sodium 40 MG TABLET PO (09:32)
[2024-09-13] MEDS: predniSONE 20 MG TABLET PO (09:32)
[2024-09-13] MEDS: Ferrous Sulfate 324 MG TABLET.DR PO (09:32)
[2024-09-13] MEDS: Escitalopram Oxalate 20 MG TABLET PO (09:32)
[2024-09-13] MEDS: Apixaban 5 MG TABLET PO (09:32)
[2024-09-13] MEDS: Digoxin 0.125 MG TABLET PO (10:39)
--- NOTE | 2024-09-13 10:54 | P.DS_ITS ---
DS: Providers Provider Date of Service: 09/13/24 Date of admission: 09/12/24 19:03 Date of discharge: 09/13/24 Primary care physician: Lizandro Gibbs MD Consults: 09/12/24 19:03 Consult to Cardiology Routine Consulting Provider: [facility] Reason for consultation: afib rvr DS: Diagnosis Discharge Diagnosis (1) Atrial fibrillation with rapid ventricular response: Status: Acute DS: Summary Hospital Course Hospital Course: Admission note HPI 83-year-old female with history of paroxysmal atrial fibrillation anticoagulated with Eliquis, COPD with chronic hypoxemic hypercapnic respiratory failure on 2 L supplemental O2, pulmonary hypertension, and aortic and mitral calcifications presents to the ED earlier today from Cardiology office due to rapid atrial fibrillation. She was previously on amiodarone which was discontinued given question of AV dissociation. She states use recently compliant with her diltiazem but did forget her dose today. While in the Cardiology office today, patient was noted to be in atrial fibrillation with rate of 131 and was recommended to present to the ED for further evaluation and management. Per Cardiology, recommended digoxin load. She is reporting orthopnea which he reports is chronic, palpitations and chest tightness. She is also reporting a productive cough that started today. She states that she has had similar coughs in the past. Reports throat irritation related to this. Denies any fevers, chills, headache, congestion, abdominal pain, nausea, vomiting, diarrhea, shortness of breath. While in the ED, has had fluctuating heart rates up to 136 and noted to be in atrial fibrillation with intermittent tachypnea. She also had mildly elevated temperature of 100.3 degrees on arrival. Blood pressure stable. There is a mild leukocytosis of 11.4, normocytic anemia with H/H 10.6/37.0%. Renal function consistent with baseline, electrolyte levels within normal limits except for CO2 of 35 which is consistent with baseline. Lactic acid 2.0. Troponin 13.1. BNP 459. TSH 0.64. Urinalysis not indicative of infection but shows presence of glucose, 1+ protein, and elevated specific gravity. She is negative for COVID-19, RSV, influenza. Chest x-ray negative for any acute cardiopulmonary abnormality. Pleural effusions resolved. In the ED, was empirically given 1 g of Maxipime to cover for infection. She was also given 1/2 L of normal saline, IV diltiazem, p.o. diltiazem. She will be admitted for further management of atrial fibrillation with RVR and digoxin load. Hospital course The patient presented from cardiology clinic with paroxysmal atrial fibrillation with RVR which possibly triggered by viral infection. She was placed on Cardizem drip . Cardiology recommended loading her Digoxin which was done overnight with good response as heart rate went down to 90s. Cardizem drip discontinue and she was switched to PO Cardizem 240mg CD and 0.125 mg Dgoxin daily with good res ponse. Echo was done to be reviewed by cardiology. continue Eliquis for anticoagulation. To follow as outpatient with cardiology. She reported recent URI which seems viral in origin. tested negative for RSV, Covid and Flu. symptomatic measures. she is on tapering dose of Prednisone as well to continue at home. Discharge plan Continue Cardizem 240 CD daily Start Digoxin 0.125 mg daily Follow with cardiology as outpatient The patient made quicker than expected recovery and will not need 2 overnight hospital stay. Time Attestation Discharge Coordination Time (in mins): 38 Quality: Safe Use of Opioids Does Pt have an Active Cancer Diagnosis on the Problem List?: No Quality: Stroke Does the patient have a stroke diagnosis?: No Physical Exam Vital Signs: Vital Signs: Last Vital Signs Temp 98.9 F 09/13/24 07:41 Pulse 94 09/13/24 07:41 Resp 20 09/13/24 07:41 BP 146/64 H 09/13/24 07:41 Pulse Ox 98 09/13/24 07:41 O2 Del Method Nasal Cannula 09/13/24 07:41 O2 Flow Rate 2 09/13/24 07:41 Oxygen Flow Rate 2 09/12/24 15:19 BMI result Body Mass Index 28.0 Const: Other: Constitutional : Awake, interactive, not in distress Neck : Normal inspection, Supple Cardiovascular : irregular irregular, no JVP, no lower extremity edema Respiratory : good bilateral air entry, no crackles, wheezes or rhonchi Gastrointestinal: soft, lax, Normal bowel sounds, Non tender Skin : Warm, Dry Neurological : Alert & oriented x3, No focal deficit DS: Data Data Completed and Pending Labs on day of discharge: Laboratory Results - last 24 hr 09/12/24 09/12/24 09/12/24 15:30 15:37 15:48 WBC 11.4 H RBC 4.34 Hgb 10.6 L Hct 37.0 MCV 85.3 MCH 24.4 L MCHC 28.6 L RDW Not Reportable Plt Count 532 H D MPV 10.2 Immature Gran % (Auto) 2.8 H Neut % (Auto) 89.2 H Lymph % (Auto) 4.1 L Sterling % (Auto) 3.7 Eos % (Auto) 0.0 Baso % (Auto) 0.2 Lymph # (Auto) 0.5 L Sterling # (Auto) 0.4 Eos # (Auto) 0.0 Baso # (Auto) 0.0 Abs Immat Gran (auto) 0.32 H Absolute Neuts (auto) 10.2 H Absolute Nucleated RBC 0.000 Nucleated RBC % (auto) 0.0 PT 11.6 INR 1.0 APTT 23.9 L D Sodium Potassium Chloride Carbon Dioxide Anion Gap BUN Creatinine Estim Creat Clear Calc Estimated GFR Random Glucose Lactic Acid 2.0 Calcium Magnesium Total Bilirubin AST ALT Alkaline Phosphatase Troponin I High Sens 13.1 B-Natriuretic Peptide 459 H Total Protein Albumin TSH Urine Color Urine Appearance Urine pH Ur Specific [place] Urine Protein Urine Glucose (UA) Urine Ketones Urine Blood Urine Nitrite Ur Leukocyte Esterase Urine RBC Urine WBC Ur Squamous Epith Cells Urine Bacteria Hyaline Casts Influenza Type A (PCR) NEGATIVE Influenza Type B (PCR) NEGATIVE RSV RNA Qual (PCR) NEGATIVE SARS-CoV-2 RNA (RT-PCR) NEGATIVE 09/12/24 09/12/24 09/13/24 16:26 17:21 05:50 WBC 10.1 RBC 3.94 L Hgb 9.6 L Hct 33.5 L MCV 85.0 MCH 24.4 L MCHC 28.7 L RDW Not Reportable Plt Count 511 H MPV 10.4 Immature Gran % (Auto) 2.2 H Neut % (Auto) 63.8 Lymph % (Auto) 20.9 Sterling % (Auto) 11.7 H Eos % (Auto) 1.2 Baso % (Auto) 0.2 Lymph # (Auto) 2.1 Sterling # (Auto) 1.2 Eos # (Auto) 0.1 Baso # (Auto) 0.0 Abs Immat Gran (auto) 0.22 H Absolute Neuts (auto) 6.4 Absolute Nucleated RBC 0.000 Nucleated RBC % (auto) 0.0 PT INR APTT Sodium 144 143 Potassium 3.7 3.2 L Chloride 102 103 Carbon Dioxide 35 H 33 H Anion Gap 11 L 10 L BUN 17 H 12 Creatinine 0.72 0.59 Estim Creat Clear Calc 62.3 76.4 Estimated GFR > 60 > 60 Random Glucose 182 H 80 Lactic Acid Calcium 9.0 D 8.6 Magnesium 1.8 Total Bilirubin 0.2 AST 16 ALT 14 Alkaline Phosphatase 79 Troponin I High Sens B-Natriuretic Peptide Total Protein 6.3 L Albumin 3.2 L TSH 0.64 Urine Color Dark Yellow Urine Appearance Clear Urine pH 6.0 Ur Specific [place] >= 1.030 H Urine Protein 30 (1+) H Urine Glucose (UA) 500 H Urine Ketones Trace Urine Blood Negative Urine Nitrite Negative Ur Leukocyte Esterase Negative Urine RBC 0-2 Urine WBC 0-5 Ur Squamous Epith Cells 6-10 Urine Bacteria None Seen Hyaline Casts 0-2 Influenza Type A (PCR) Influenza Type B (PCR) RSV RNA Qual (PCR) SARS-CoV-2 RNA (RT-PCR) Imaging Chest x-ray: Radiologist's impression: ITS Impressions Chest X-Ray 09/12/24 15:33 IMPRESSION: No acute cardiopulmonary process seen. Previously seen mild blunting of bilateral CP angles likely small pleural effusions has resolved. Electronically signed by: Olayinka Martinez MD 09/12/2024 04:38 PM EDT Discharge Plan Discharge Anticipated Discharge Date/Time: 09/13/24 10:48 Patient Disposition: Home, Self-Care Discharge Diagnosis: Rapid atrial fibrillation Referrals: Lizandro Gibbs MD [Primary Care Provider] - 1 Week Discharge Medications: New diltiazem HCl 240 mg Capsule,Extended Release 24hr 240 mg PO DAILY Qty: 90 0RF Protocol: Hold for SBP/HR < HOLD for SBP < : 90 HOLD for HR < : 60 digoxin 125 mcg (0.125 mg) Tablet 0.125 mg PO DAILY Qty: 90 0RF Protocol: Hold for HR <: HOLD for HR < : 60 Continued gabapentin 300 mg capsule 300 mg PO BEDTIME Qty: 30 6RF furosemide 40 mg tablet 40 mg PO BID Eliquis 5 mg tablet 5 mg PO BID alprazolam 0.25 mg tablet 0.25 mg PO DAILY PRN (Reason: Anxiety) citalopram 20 mg tablet 40 mg PO DAILY ropinirole 0.25 mg tablet 0.25 mg PO DAILY fluticasone propionate [Flonase Allergy Relief] 50 mcg/actuation Speculator,Suspension 50 mcg INTRANASAL DAILY PRN (Reason: allergies) ascorbic acid (vitamin C) [Vitamin C] 500 mg Tablet,Chewable 500 mg PO DAILY Qty: 90 3RF acetaminophen 500 mg tablet 1,000 mg PO TID PRN (Reason: pain) Qty: 20 0RF calcium carbonate-vitamin D3 600 mg-5 mcg (200 unit) Tablet 1 tab PO TID psyllium husk [Metamucil] 0.4 gram Capsule 0.4 g PO DAILY Hair, Skin and Nails (biotin) 10,000 mcg Tablet,Chewable 10,000 mcg PO DAILY albuterol sulfate 90 mcg/actuation HFA aerosol inhaler 1 puff inhalation Q4H PRN (Reason: shortness of breath or wheezing) Trelegy Ellipta 100-62.5-25 mcg blister with device 1 inh PO DAILY prednisone 10 mg tablet See Taper PO DIRECTED Qty: 30 0RF Taper: Prednisone 40 mg daily for 3 Days and 0 Hour 30 mg daily for 3 Days and 0 Hour 20 mg daily for 3 Days and 0 Hour 10 mg daily for 3 Days and 0 Hour Rx Instructions: see taper instructions ferrous sulfate 325 mg (65 mg iron) tablet 325 mg PO DAILY Qty: 30 0RF aspirin 81 mg Tablet,Delayed Release (Dr/Ec) 81 mg PO DAILY ropinirole 0.25 mg tablet 0.5 mg PO BEDTIME azelastine 137 mcg (0.1 %) spray,non-aerosol 1 spray intranasal BID montelukast 10 mg tablet 10 mg PO BEDTIME mupirocin 2 % ointment 1 appl topical TID PRN (Reason: Skin Infection) ipratropium bromide 42 mcg (0.06 %) spray,non-aerosol 2 spray intranasal QID Rx Instructions: administer into each nostril albuterol sulfate 2.5 mg /3 mL (0.083 %) solution for nebulization 2.5 mg inhalation Q6H PRN (Reason: Wheezing) famotidine 20 mg tablet 20 mg PO BEDTIME PRN (Reason: Acid Reflux) pravastatin 40 mg tablet 40 mg PO DAILY (DME) nebulizers Misc See Rx Instructions .Route Rx Instructions: As directed ([facility]) Oxygen Home Use Kit See Rx Instructions .Route Rx Instructions: As directed turmeric root extract 500 mg capsule 500 mg PO DAILY codeine-guaifenesin 10-100 mg/5 mL liquid 10 ml PO Q6H PRN (Reason: cough) 10 Days Qty: 300 0RF trazodone 50 mg tablet 50 mg PO BEDTIME PRN (Reason: sleep) Discontinued diltiazem HCl 180 mg Tablet Extended Release 24 Hr 360 mg PO DAILY Discharge Orders: Discharge Order (Routine); Ordered 09/13/24 Ordered By: Joe Clark Diet: Low salt diet Activity on Discharge: As tolerated Stand Alone Forms: Patient Portal Discharge page Print Language: Comoran Care Plan Goals: Continue Cardizem 240 CD daily Start Digoxin 0.125 mg daily Follow with cardiology as outpatient Health Concerns: Rapid atrial fibrillaiton Plan of Treatment: Cardizem 240 mg daily Digoxine 0.125 mg daily Assessment: as above
[2024-09-13 11:19] VITALS: BP 110/53; PULSE 90; RESP 20; TEMP 36.8; O2SAT 96
[2024-09-13] MEDS: dilTIAZem HCL CD 240 MG CAP.ER.DEG PO (12:35)
[2024-09-13 13:28] LABS: Adenovirus PCR Not Detected (Not Detect.); Bordetella parapertussis PCR Not Detected (Not Detect.); Bordetella pertussis PCR Not Detected (Not Detect.); Chlamydia pneumoniae PCR Not Detected (Not Detect.); Coronavirus 229E PCR Not Detected (Not Detect.); Coronavirus HKU1 PCR Not Detected (Not Detect.); Coronavirus NL63 PCR Not Detected (Not Detect.); Coronavirus OC43 PCR Not Detected (Not Detect.); Human metapneumovirus PCR Not Detected (Not Detect.); Influenza A PCR Not Detected (Not Detect.); Influenza B PCR Not Detected (Not Detect.); Mycoplasma pneumoniae PCR Not Detected (Not Detect.); Parainfluenza 1 PCR Not Detected (Not Detect.); Parainfluenza 2 PCR Not Detected (Not Detect.); Parainfluenza 3 PCR Not Detected (Not Detect.); Parainfluenza 4 PCR Not Detected (Not Detect.); RSV PCR Not Detected (Not Detect.); Rhino/Enterovirus PCR Not Detected (Not Detect.)
[2024-09-13 14:17] LABS: SARS-CoV-2 PCR Not Detected (Not Detect.)
== END 2024-09-13 16:30 | disposition home or self-care (01) | DRG 309 ==
LOC: HO.ED 19:01 → HO.EDOVER 19:13 → HO.IMC 19:49
PROVIDERS: Admitting Provider Physician Assistant; Emergency Provider Emergency Medicine Emergency Medical Services; PCP Internal Medicine; Visit Provider Student in an Organized Health Care Education/Training Program
DX: I48.0 Paroxysmal atrial fibrillation (principal); J96.11 Chronic respiratory failure with hypoxia; J96.12 Chronic respiratory failure with hypercapnia; D50.9 Iron deficiency anemia, unspecified; G25.81 Restless legs syndrome; F39 Unspecified mood [affective] disorder; I35.0 Nonrheumatic aortic (valve) stenosis; B97.89 Other viral agents as the cause of diseases classified elsewhere; I27.20 Pulmonary hypertension, unspecified; Z20.822 Contact with and (suspected) exposure to COVID-19; Z99.81 Dependence on supplemental oxygen; Z87.891 Personal history of nicotine dependence; Z79.82 Long term (current) use of aspirin; Z79.899 Other long term (current) drug therapy
CPT/HCPCS: 0241U; 36415; 71045; 80048; 80053; 81001; 83605; 83735; 83880; 84443; 84484; 85025; 85610; 85730; 87040; 87633; 93005; 93306; 99285; J0692; J1160; Q9957

== ENCOUNTER → 2024-09-12 15:33 | Outpatient (BNV) | payer OTHER, SELFPAY | PROVIDERS: Emergency Provider Emergency Medicine Emergency Medical Services; PCP Internal Medicine; Visit Provider Radiology Diagnostic Radiology | DX: R06.02 Shortness of breath (principal) | CPT/HCPCS: 71045 ==

== ENCOUNTER 2024-09-12 19:03 | Outpatient (BNV) | payer OTHER, SELFPAY | END 2024-09-13 07:00 | PROVIDERS: Admitting Provider Physician Assistant; Emergency Provider Emergency Medicine Emergency Medical Services; PCP Internal Medicine; Visit Provider Internal Medicine | DX: I35.8 Other nonrheumatic aortic valve disorders (principal); I34.81 Nonrheumatic mitral (valve) annulus calcification; I36.1 Nonrheumatic tricuspid (valve) insufficiency | CPT/HCPCS: 93306 ==

== ENCOUNTER → 2024-09-12 19:03 | Outpatient (BNV) | payer OTHER, SELFPAY | PROVIDERS: Admitting Provider Physician Assistant; Emergency Provider Emergency Medicine Emergency Medical Services; PCP Internal Medicine; Visit Provider Student in an Organized Health Care Education/Training Program | DX: I48.91 Unspecified atrial fibrillation (principal) | CPT/HCPCS: 99222; 99238 ==

== ENCOUNTER → 2024-09-12 19:03 | Outpatient (BNV) | payer OTHER, SELFPAY | PROVIDERS: Admitting Provider Physician Assistant; Emergency Provider Emergency Medicine Emergency Medical Services; PCP Internal Medicine; Visit Provider Internal Medicine | DX: I48.91 Unspecified atrial fibrillation (principal) | CPT/HCPCS: 99223 ==

== ENCOUNTER → 2024-09-26 12:56 | Outpatient (REF) | payer OTHER, SELFPAY ==
--- OUTSIDE RECORDS SUMMARY | 2024-09-26 15:41 | XMS_ITS | Data Portability ---
Author Organization [facility] [address] Address [address] [place] [address] Care Team Providers Care Materials Technician Name Role Phone JOHN HERNANDEZ Primary Care Provider [phone] Assessment No assessment recorded. Plan of Treatment [...] By Organization Details Last Modified Time 07/02/2022 [id number] cough: care instructions Not available 07/02/2022 14:59:31 [...] Details Recorded Time Chronic obstructive pulmonary disease 03288416 Active 2021 [facility] 14:28:17 Hypertensive disorder 88436866 Active 2021 [facility] Pagan [facility] 14:35:25 Hyperlipidemia 42123057 Active 2021 JACKELYN PÉREZCECINadine grover, [place] - [facility] 14:35:44 Restless legs 71988178 Active 2021 JACKELYN [place], [place] - [facility] [...] Updated DateTime 2 160.02 cm 28.9 kg/m2 33025.5 6 g 88 % 88 % 24 [...] SNOMED-CT Code Diagnosis ICD10 Code Diagnosis Note [id number] [address] [facility] [place] [address] 07/16/2019 10:19:21 07/16/2019 12:01:17 [id number] [address] [facility] [place] [address] 01/10/2021 16:37:47 01/10/2021 17:35:59 [id number] [facility] [address] [address] [facility] [place] [address] 07/02/2022 13:20:27 07/02/2022 15:14:04 Acute exacerbation of chronic obstructive pulmonary disease 077954790 J44.1 Health Concerns Section Related Observation LastModified by Organization Detai ls LastModified Time None Recorded Concern Status LastModified by Organization Details LastModified Time None Recorded Advance Directives Directive None Recorded Payers Encounter Date Sequence Insurance Name Policy Number Policy Urena Covered Member ID Urena Member ID Guarantor Name 07/16/2019 1 [facility] [id number] Tanya Joya [id number] Tanya Joya 01/10/2021 1 [facility] [id number] Tanya Joya [id number] Tanya Joya 07/02/[address] [place] [address] [id number] Tanya M Toan [id number] Tnaya Joya Notes Date Note Type Note Provider [...] LINO Simon [address] [place], [address], [place] - [facility] 07/02/2022 15:09:16 OBGyn Episode No OBEpisode recorded.
--- OUTSIDE RECORDS SUMMARY | 2024-09-26 15:41 | XMS_ITS ---
Author Organization [facility] Care Team Providers Care Ag Equipment Field Service Technician Name Role Phone Ellyn Cadena Unavailable Unavailable Rah Jackson Unavailable Unavailable Kendra Puentes Unavailable Unavailable Natalya Werner Unavailable Unavailable Allergies and adverse reactions No Known Allergies Care Team Name Role Address Phone Organization Dates Rah Jackson PCP [address], [place], [address], [facility] (Office): [facility] 09/03/2023 - 09/17/2023 Ellyn Cadena Attending Physician [address] [place] [address], [address], [facility] (Office): [facility] 09/03/2023 - 09/17/2023 Kendra Puentes Attending Physician [address] [place] [address], [address], [facility] (Office): [facility] 09/03/2023 - 09/17/2023 Natalya Werner Attending Physician [address] [place], [address], [facility] (Office): [facility] 09/03/2023 - 09/17/2023 Immunizations Immunization Status Vaccine [...] bivalent, preservative free, 30 mcg/0.3 mL dose, seha-sucrose formulation Step 1 of Multi-step with next [...] completed Pneumococcal conjugate vaccine 15-valent (PCV15), polysaccharide RHA164 conjugate, adjuvant, preservative free 215 CVX created date: 09/06/2023 administere d date: 12/03/2022 Mental Status Section Date Assessment Total Score Description 09/17/2023 BIMS 15 cognitively int act CAM 0 No delirium ind icated 09/09/2023 BIMS 15 cognitively int act CAM 0 No delirium ind icated Problems Problem # Description Date of onset Resolved Date Code CodeSystem Concern Status 1 COVID-[address] active 2 CHRONIC ATRIAL FIBRILLATION, UNSPECIFIED [address] active 3 [address]KALEM[address] active 4 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 [address] active 5 ANXIETY DISORDER, UNSPECIFIED [address] active 6 CHRONIC OBSTRUCTIVE PULMONARY DISEASE, UNSPECIFIED [address] active 7 DEPENDENCE ON SUPPLEMENTAL OXYGEN [address] active 8 DIFFICULTY IN WALKING, NOT ELSEWHERE CLASSIFIED [address] active 9 HYPERLIPIDEMIA, UNSPECIFIED [address] active 10 MAJOR DEPRESSIVE DISORDER, RECURRENT, UNSPECIFIED [address] active 11 MUSCLE WEAKNESS (GENERALIZED) [address] active 12 PULMONARY HYPERTENSION, UNSPECIFIED [address] active 13 RESTLESS LEGS SYNDROME [address] active 14 SHORTNESS OF BREATH [address] active 15 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 16 UNSTEADINESS ON FEET [address] active Reason for Referral No Reasons for Referral Entered Social History Social History Observation Description Start Date End Date Code Code System Current Smoking Status Tobacco smoking consumption unknown 839666374 SNOMED CT Sex Assigned At Female 1940 [address]-6 [facility] Vital Signs Code Code System Vitals Name Values and Units Timing Information 9279-1 INC Respiratory Rate Value=18.0 Units=/m in 09/17/2023 35675-1 LOINC O2 % BldC Oximetry Value=92.0 Units= % 09/17/2023 29177-2 LOINC Pain Level Value=0.0 09/17/2023 8462-4 [facility] Blood Pressure-Diastolic Value=74 Un its=mmHg 09/17/2023 8480-6 [facility] Blood Pressure-Systolic Bmnzd=777 Un its=mmHg 09/17/2023 8310-5 [facility] Body Temperature Value=97.6 Units=?? F 09/17/2023 8867-4 [facility] Heart rate Value=84.0 Units=/min 64169-4 [facility] Weight Tpjus=886.8 Units=Lbs 05/2024 8302-2 [facility] Height Value=63.0 Units=Inches 09/03/2023
--- OUTSIDE RECORDS SUMMARY | 2024-09-26 15:41 | XMS_ITS | Clinical Summary ---
Author Organization [facility] Address [address] [place] [address] Care Team Providers Care Varnisher Apprentice Name Role Phone Lizandro Gibbs MD Primary Care Provider [phone] Medical History Medical History Date Comments Essential hypertension DX:Essent ial hypertension Hyperlipidemia DX:Hyperlipidemi a COPD (chronic obstructive pu lmonary disease) ([facility]) DX:COPD (chronic obstructive pulmonary disease) ([facility]) Depression DX:Depression Restless leg syndrome DX:Restles s leg syndrome Chronic respiratory failure with hypoxia DX:Chronic respiratory failure with hypoxia ([facility]) Acute and chronic respirator y failure with hypoxia DX:Acute and chronic respira tory failure with hypoxia ([facility]) Hyponatremia DX:Hyponatremia Depression DX:Depression Family History Medical [...] Annual BMP Blood Test 06/20/2022 COVID-19 Vaccine (1 - 2023-2 5 season) 2024 Influenza Vaccine [...] Documents on File Type Date Recorded Patient Pediatric Nephrologist Expl anation Health Care Decision (hx) 10/07/2023 AD HEWITT DIRECTIVE Health Care Decision (hx) 10/07/2023 AD HEWITT DIRECTIVE Care Teams Varnisher Apprentice Relationship Specialty Start Date End Date Lizandro Gibbs MD PCP - General Internal Medicine 04/20/12
== END ==
LOC: HO.CARD 12:56
PROVIDERS: PCP Internal Medicine; Visit Provider Internal Medicine
DX: I48.91 Unspecified atrial fibrillation (principal)
CPT/HCPCS: 93242

== ENCOUNTER → 2024-09-26 12:59 | Outpatient (BNV) | payer OTHER, SELFPAY | PROVIDERS: PCP Internal Medicine; Visit Provider Internal Medicine | DX: I48.91 Unspecified atrial fibrillation (principal) | CPT/HCPCS: 93244 ==

== ENCOUNTER 2024-10-03 14:11 | Outpatient (AMB) | payer OTHER, SELFPAY ==
--- NOTE | 2024-10-03 14:25 | MHC.OFFVIS ---
Vital Signs 10/03/24 14:27 Height 5 ft 5 in Weight 158 lb BMI 26.3 BP 100/60 Blood Pressure Location Lt brachial Position Sitting Pulse 69 Pulse Source Pulse Oximeter Intake Visit Reasons: ED F/U Intake Note: ed f/up Coat Hanger Shaper Machine Operator Required: No Accompanied by: Daughter Allergies No Known Allergies Allergy (Verified 09/12/24 15:22) Medication List - Last Reconciled 10/03/24 by Donny Ward NP acetaminophen 1,000 mg (2 x 500 mg) PO TID PRN albuterol sulfate 90 mcg/actuation 1 puff inhalation Q4H PRN albuterol sulfate 2.5 mg inhalation Q6H PRN alprazolam 0.25 mg PO DAILY PRN apixaban (Eliquis) 5 mg PO BID ascorbic acid (vitamin C) (Vitamin C) 500 mg PO DAILY aspirin 81 mg PO DAILY azelastine 1 spray intranasal BID biotin (Hair, Skin and Nails (biotin)) 10,000 mcg PO DAILY calcium carbonate-vitamin D3 600 mg-5 mcg (200 unit) 1 tab PO TID citalopram 40 mg PO DAILY codeine-guaifenesin 10-100 mg/5 mL 10 mL PO Q6H PRN 10 days digoxin 0.125 mg See Protocol PO DAILY diltiazem HCl CD 240 mg See Protocol PO DAILY famotidine 20 mg PO BEDTIME PRN ferrous sulfate 325 mg PO DAILY fluticasone propionate 50 mcg/actuation (Flonase Allergy Relief) 50 mcg intranasal DAILY PRN uiclaiyidpw-ifzbvvtuq-hhhsttws 100-62.5-25 mcg (Trelegy Ellipta) 1 inh PO DAILY furosemide 40 mg PO BID gabapentin 300 mg PO BEDTIME ipratropium bromide 2 sprays intranasal QID montelukast 10 mg PO BEDTIME mupirocin 2% 1 appl topical TID PRN nebulizers As directed Oxygen Home Use As directed pravastatin 40 mg PO DAILY prednisone See Taper mg PO DIRECTED psyllium husk (Metamucil) 0.4 grams PO DAILY ropinirole 0.25 mg PO DAILY ropinirole 0.5 mg PO BEDTIME trazodone 50 mg PO BEDTIME PRN turmeric root extract 500 mg PO DAILY HPI Comments Details: This is an 83-year-old female patient presenting for a hospital discharge follow-up visit, accompanied by her daughter. Patient has history of paroxysmal AFib on Eliquis, COPD requiring supplemental oxygen at 2 L at all times, pulmonary hypertension, and mitral and aortic valve calcification. The patient was recently seen in the office where she was found to be in AFib with RVR likely triggered by a viral infection for which she was treated during her prior hospital visit. She was subsequently referred to the ER where she was started on a Cardizem drip and loaded with digoxin. In the prior admission, patient had chronic symptomatic blood loss anemia with low H&H requiring blood transfusions. EGD and colonoscopy were performed with no obvious source for bleeding. Patient has a an upcoming appointment with Hematology as well as Gastroenterology to further evaluate this. Patient otherwise is reporting feeling well overall and denies any cardiac symptoms of exertional shortness of breath, chest pain, palpitations, dizziness, orthopnea, PND, leg edema, presyncope, or syncope. The patient confirms that she has been compliant with all her medications. Denies any active signs of bleeding or falls. [facility] Medical History Atrial fibrillation Atrial fibrillation with rapid ventricular response COPD (chronic obstructive pulmonary disease) PAF (paroxysmal atrial fibrillation) Lung nodule Pleural effusion Pulmonary hypertension Mitral annular calcification Aortic valve calcification Cough Sinusitis Chronic respiratory failure Pneumonia Surgical History No pertinent past surgical history Family History Brother Myocardial infarction Father Stroke Maternal Grandmother Bone cancer Social History Household Members: Children Household Members Other:: Daughter and family Housing: House Are you a primary career and guidance counselor to a significant other at home: No Do you presently have visiting nurse or other home services: No Alcohol intake: never Patient Tobacco Use Status: Former Tobacco user Tobacco use type: Cigarette e-Cigarette/Vaping Use: Never Used Second Hand Smoke Exposure: No Advance Directives Date on File: 06/21/23 service: No Current occupational status: retired Review of Systems Const Denies chills, Denies fatigue, Denies fever(s), Denies frequent falls, Denies weakness, Denies weight gain and Denies weight loss ENT Denies dizziness Card Denies chest pain, Denies leg edema, Denies lightheadedness, Denies palpitations, Denies dyspnea and Denies dyspnea on exertion Resp Denies cough, Denies dyspnea and Denies dyspnea on exertion GI Denies hematochezia Musc Denies abnormal gait, Denies muscle weakness, Denies numbness, Denies radiating pain into limb and Denies tingling Neuro Denies abnormal gait, Denies dizziness, Denies frequent falls, Denies numbness, Denies tingling and Denies weakness Endo Denies fatigue and Denies palpitations Physical Exam Vital Signs: Last Vital Signs Pulse 69 10/03/24 14:27 BP 100/60 10/03/24 14:27 BMI result Body Mass Index 26.3 Const General: cooperative, healthy appearing, comfortable and no acute distress Orientation/consciousness: patient oriented x3 HEENT Head: Yes normal to inspection Neck Neck: Yes normal visual inspection, Yes trachea midline and Yes supple Chest Chest palpation & inspection: normal inspection of the chest Resp Other: On chronic supplemental oxygen Effort & Inspection: normal respiratory effort Auscultation: clear to auscultation bilaterally, no crackles, no rales, no rhonchi and no wheezes Cardio Jugular venous distension: no JVD Palpation: normal PMI Rate: regular rate Rhythm: regular rhythm Heart sounds: S1 normal heart sound present, S2 normal heart sound present, no click, no gallops, no murmurs and no rubs Peripheral pulses: Peripheral pulses 2+ throughout GI Inspection: Yes normal to inspection Palpation (GI): Soft to palpation Auscultation: normal bowel sounds Skin General skin exam: no rashes or lesions noted Neuro General: patient oriented x3 Extrem General: Yes normal to inspection, No no pedal edema and No calf tenderness Psych Appearance: grossly normal Mental Status: mental status grossly normal Speech and movement: Normal speech and movement present Assessment & Plan Assessment & Plan (1) PAF (paroxysmal atrial fibrillation): Code(s): I48.0 - Paroxysmal atrial fibrillation Category: Medical Plan: Patient previously on amiodarone but she started having AV dissociation therefore was discontinued. Continue with diltiazem and digoxin therapy for rate approach therapy. Patient continues to take Eliquis at this time. Reiterated Watchman device and discussed in detail about its indications, risks, procedure, and benefits. The patient and the daughter would like to wait currently as they would like to discuss with Hematology and Gastroenterology for us. Patient will decide on this and get back to us at which point we will refer patient to the EP for Watchman device. (2) Diastolic dysfunction: Code(s): I51.89 - Other ill-defined heart diseases Category: Medical Plan: 09/13/2024-echo study showed normal EF 56%, moderate calcification of the aortic valve, mild mitral annular calcification, and pnjj-qn-dclmgped pulmonary hypertension. Clinically euvolemic. Continue Lasix therapy. We will repeat labs periodically. (3) Pulmonary hypertension: Code(s): I27.20 - Pulmonary hypertension, unspecified Category: Medical Plan: As above. Continue oxygen therapy. (4) Anemia: Code(s): D64.9 - Anemia, unspecified Category: Medical Plan: Follow-up with Gastroenterology and Hematology. (5) Hospital discharge follow-up: Code(s): Z09 - Encounter for follow-up examination after completed treatment for conditions other than malignant neoplasm Category: Medical Plan: As above. Advised heart healthy diet, regular exercise as tolerated, and aggressive management of vascular risk factors. We will follow up with the patient in 6 months, sooner if needed. In the interim, patient will call us for concerns or change in symptoms. This note was generated using voice recognition software. While every effort has been made to ensure accuracy and proper clinical project assistant, there may be occasional errors that could affect the content or meaning of the described symptoms. Coding Level of Care Code Est Pt Level 4 (84110) Complex EM visit Add On G2211 Diagnoses PAF (paroxysmal atrial fibrillation) I48.0 Diastolic dysfunction I51.89 Pulmonary hypertension I27.20 Anemia D64.9 Hospital discharge follow-up Z09 Time Spent (min) 38 Comment Time spent in reviewing the chart, test results, assessment, counseling and documentation.
[2024-10-03 14:27] VITALS: BP 100/60; PULSE 69; BMI 26.3
--- OUTSIDE RECORDS SUMMARY | 2024-10-03 16:58 | XMS_ITS | Encounter Summary ---
Author Organization [facility] Address [address] [place] [address] Care Team Providers Care Production Sanitizer Name Role Phone Lizandro Gibbs MD Primary Care Provider Stuart Shahid MD Unavailable [phone] Encounter Details Date Type Department Care Team Description 03/23/2008 SCAN Medical Records [address] [place] [address] Abstract, Provider Social History Tobacco Use Types [...] on filedocumented in this encounter Care Teams Production Sanitizer Relationship Specialty Start Date End Date Lizandro Gibbs MD PCP - General Internal Medicine 04/20/12 Stuart Cardenas MD [address] [place] [address] Specialist Cardiovascular Disease 09/16/21 3 documented as of this encounter
--- OUTSIDE RECORDS SUMMARY | 2024-10-03 16:58 | XMS_ITS | Data Portability ---
Author Organization LINO [facility]hl [facility] [address] Address [address] [place] [address] Care Team Providers Care Manuscript Reader Name Role Phone JOHN HERNANDEZ Primary Care [...] By Organization Details Last Modified Time 07/02/2022 [id number] cough: care instructions Not available 07/02/2022 14:59:31 [...] Details Recorded Time Chronic obstructive pulmonary disease 08641074 Active 2021 [facility]O Pagan [facility] 14:28:17 Hypertensive disorder 27903335 Active 2021 LINO Pagan [facility] 14:35:25 Hyperlipidemia 61219258 Active 2021 JACKELYN PÉREZCECINadine grover, [place] - [facility] 14:35:44 Restless legs 44979714 Active 2021 JACKELYN grover, [facility] - [facility] [...] Updated DateTime 2 160.02 cm 28.9 kg/m2 35954.5 6 g 88 % 88 % 24 [...] Tobacco Smoking Status Former Smoker JACKELYN PÉREZSAPNA reilyl PA - [facility] 07/02/2022 14:36:26 What [...] SNOMED-CT Code Diagnosis ICD10 Code Diagnosis Note [id number] [facility] [place] [address] 07/16/2019 10:19:21 07/16/2019 12:01:17 [id number] [facility] [place] [address] 01/10/2021 16:37:47 01/10/2021 17:35:59 [id number] [facility]O [facility] [address] [facility] [place] [address] 07/02/2022 13:20:27 07/02/2022 15:14:04 Acute exacerbation of chronic obstructive pulmonary disease 436259456 J44.1 Health Concerns Section Related Observation LastModified by Organization Detai ls LastModified Time None Recorded Concern Status LastModified by Organization Details LastModified Time None Recorded Advance Directives Directive None Recorded Payers Encounter Date Sequence Insurance Name Policy Number Policy Urena Covered Member ID Urena Member ID Guarantor Name 07/16/2019 1 [facility] [id number] Tanya Joya [id number] Tanya Joya 01/10/2021 1 [facility] [id number] Tanya Joya [id number] Tanya Joya 07/02/[address] [place] [address] [id number] Tanya M Toan [id number] Tanya Joya Notes Date Note Type Note [...] LINO Simon [address] [place], [address], [place] - [facility] 07/02/2022 15:09:16 OBGyn Episode No OBEpisode recorded.
--- OUTSIDE RECORDS SUMMARY | 2024-10-03 16:58 | XMS_ITS | Encounter Summary ---
Author Organization [facility] Address [address] [place] [address] Care Team Providers Care Primary Health Care Nurse Name Role Phone Lizandro Gibbs MD Primary Care Provider Stuart Shahid MD Unavailable [phone] Encounter Details Date Type Department Care Team Description 02/20/2021 Orders Only Cardio [facility] Diag Testing [address] [address] Lizandro Gibbs MD Chest pain, unspecified type [...] PER PROTOCOL (03/13/2021) Impressions [facility] - 03/13/2021 [facility] [address] [facility], [place] [address], [place] [address] TEL: ??FAX: Name: Tanya Joya ? Date [...] (HCC) documented in this encounter Care Teams Primary Health Care Nurse Relationship Specialty Start Date End Date Lizandro Gibbs MD PCP - General Internal Medicine 04/20/12 Stuart Cardenas MD Medical [facility] [address] [place] [address] Specialist Cardiovascular Disease 09/16/21 3 documented as of this encounter
--- OUTSIDE RECORDS SUMMARY | 2024-10-03 16:58 | XMS_ITS | Encounter Summary ---
Author Organization [facility] Address [address] [place] [address] Care Team Providers Care Java Lead Engineer Name Role Phone Lizandro Gibbs MD Primary Care Provider Stuart Shahid MD Unavailable [phone] Encounter Details Date Type Department Care Team Description 07/18/2008 [facility] Medical Records [address] [place] [address] Abstract, Provider Social History Tobacco Use Types [...] Date/Time Associated Diagnosis Comments OUTSIDE ECHO Routine 07/18/2008 documented in this encounter Results * OUTSIDE ECHO (07/18/2008) Provider Abstract CARDIOLOGY documented in this encounter Visit Diagnoses Not on filedocumented in this encounter Care Teams Java Lead Engineer Relationship Specialty Start Date End Date Lizandro Gibbs MD PCP - General Internal Medicine 04/20/12 Stuart Carden[address] MD [address] [place] [address] Specialist Cardiovascular Disease 09/16/21 3 documented as of this encounter
--- OUTSIDE RECORDS SUMMARY | 2024-10-03 16:58 | XMS_ITS | Encounter Summary ---
Author Organization [facility] Address [address] [place] [address] Care Team Providers Care Milieu Manager Name Role Phone Lizandro Gibbs MD Primary Care Provider Stuart Shahid MD Unavailable [phone] Encounter Details Date Type Department Care Team Description 07/03/2009 [facility] Medical Records [address] [place] [address] Abstract, Provider Social History Tobacco Use Types [...] on filedocumented in this encounter Care Teams Milieu Manager Relationship Specialty Start Date End Date Lizandro Gibbs MD PCP - General Internal Medicine 04/20/12 Stuart Cardenas MD [address] [place] [address] Specialist Cardiovascular Disease 09/16/21 3 documented as of this encounter
--- OUTSIDE RECORDS SUMMARY | 2024-10-03 16:58 | XMS_ITS | Encounter Summary ---
Author Organization [facility] Address [address] [place] [address] Care Team Providers Care Bulk Truck Driver Name Role Phone Lizandro Gibbs MD Primary Care Provider Stuart Shahid MD Unavailable [phone] Encounter Details Date Type Department Care Team Description 06/18/2009 SCAN Medical Records [address] [place] [address] Abstract, Provider Social History Tobacco Use Types [...] on filedocumented in this encounter Care Teams Bulk Truck Driver Relationship Specialty Start Date End Date Lizandro Gibbs MD PCP - General Internal Medicine 04/20/12 Stuart Cardenas MD [address] [place] [address] Specialist Cardiovascular Disease 09/16/21 3 documented as of this encounter
--- OUTSIDE RECORDS SUMMARY | 2024-10-03 16:58 | XMS_ITS | Encounter Summary ---
Author Organization [facility] Address [address] [place] [address] Care Team Providers Care Profile Saw Operator Name Role Phone Lizandro Gibbs MD Primary Care Provider Stuart Shahid MD Unavailable [phone] Encounter Details Date Type Department Care Team Description 02/17/2021 SC[facility] Medical Records [address] [place] [address] Abstract, Provider Social History Tobacco Use Types [...] on filedocumented in this encounter Care Teams Profile Saw Operator Relationship Specialty Start Date End Date Lizandro Gibbs MD PCP - General Internal Medicine 04/20/12 Stuart Cardenas MD Medical [facility] [address] [place] [address] Specialist Cardiovascular Disease 09/16/21 6/ 3 documented as of this encounter
--- OUTSIDE RECORDS SUMMARY | 2024-10-03 16:58 | XMS_ITS | Encounter Summary ---
Author Organization [facility] Address [address] [place] [address] Care Team Providers Care Nutrition Instructor Name Role Phone Lizandro Gibbs MD Primary Care Provider Stuart Shahid MD Unavailable [phone] Encounter Details Date Type Department Care Team Description 08/19/2012 SC[facility] Medical Records [address] [place] [address] Abstract, Provider Social History Tobacco Use Types [...] on filedocumented in this encounter Care Teams Nutrition Instructor Relationship Specialty Start Date End Date Lizandro Gibbs MD PCP - General Internal Medicine 04/20/12 Stuart Cardenas MD [address] [place] [address] [place] [address] Specialist Cardiovascular Disease 09/16/21 6/ 3 documented as of this encounter
--- OUTSIDE RECORDS SUMMARY | 2024-10-03 16:58 | XMS_ITS | Encounter Summary ---
Author Organization [facility] Address [address] [place] [address] Care Team Providers Care Powdered Sugar Supervisor Name Role Phone Lizandro Gibbs MD Primary Care Provider Stuart Shahid MD Unavailable [phone] Encounter Details Date Type Department Care Team Description 02/17/2021 [facility] [address] [place], [place] [address] [place] [address] Social History Tobacco Use Types Packs/Day Years [...] on filedocumented in this encounter Care Teams Powdered Sugar Supervisor Relationship Specialty Start Date End Date Lizandro Gibbs MD PCP - General Internal Medicine 04/20/12 Stuart Cardenas MD [address] [place] [address] Specialist Cardiovascular Disease 09/16/21 3 documented as of this encounter
--- OUTSIDE RECORDS SUMMARY | 2024-10-03 16:58 | XMS_ITS | Encounter Summary ---
Author Organization [facility] Address [address] [place] [address] Care Team Providers Care Inside Barrel Lathe Operator Name Role Phone Lizandro Gibbs MD Primary Care Provider Stuart Shahid MD Unavailable [phone] Encounter Details Date Type Department Care Team Description 03/07/2021 Manager Lab Report Medical Records [address] [place] [address] Stan Brito MD Social History Tobacco Use [...] on filedocumented in this encounter Care Teams Inside Barrel Lathe Operator Relationship Specialty Start Date End Date Lizandro Gibbs MD PCP - General Internal Medicine 04/20/12 Stuart Cardenas MD Medical [facility] [address] [place] [address] Specialist Cardiovascular Disease 09/16/21 3 documented as of this encounter
--- OUTSIDE RECORDS SUMMARY | 2024-10-03 16:59 | XMS_ITS | Encounter Summary ---
Author Organization [facility] Address [address] [place] [address] Care Team Providers Care Pug Mill Operator Helper Name Role Phone Lizandro Gibbs MD Primary Care Provider Stuart Shahid MD Unavailable [phone] Encounter Details Date Type Department Care Team Description 03/17/2019 Feltmaker Report Medical Records [address] [place] [address] Brook Bansal PA-C [address] [place] [id number] Social History Tobacco Use Types Packs/Day Years [...] on filedocumented in this encounter Care Teams Pug Mill Operator Helper Relationship Specialty Start Date End Date Lizandro Gibbs MD PCP - General Internal Medicine 04/20/12 Stuart Cardenas MD [address] [place] [address] Specialist Cardiovascular Disease 09/16/21 6/ 3 documented as of this encounter
--- OUTSIDE RECORDS SUMMARY | 2024-10-03 16:59 | XMS_ITS | Encounter Summary ---
Author Organization [facility] Address [address] [place] [address] Care Team Providers Care Producer Director Name Role Phone Lizandro Gibbs MD Primary Care Provider Stuart Shahid MD Unavailable [phone] Encounter Details Date Type Department Care Team Description 03/04/2020 Transfer Records Medical Records [address] [place] [address] Abstract, Provider Social History Tobacco Use Types [...] on filedocumented in this encounter Care Teams Producer Director Relationship Specialty Start Date End Date Lizandro Gibbs MD PCP - General Internal Medicine 04/20/12 Stuart Cardenas MD Medical [facility] [address] [place] [address] Specialist Cardiovascular Disease 09/16/21 6 3 documented as of this encounter
--- OUTSIDE RECORDS SUMMARY | 2024-10-03 16:59 | XMS_ITS | Encounter Summary ---
Author Organization [facility] Address [address] [place] [address] Care Team Providers Care Plant Operations Coordinator Name Role Phone Lizandro Gibbs MD Primary Care Provider Stuart Shahid MD Unavailable [phone] Encounter Details Date Type Department Care Team Description 07/20/2022 SCAN Medical Records [address] [place] [address] Lizandro Gibbs MD Social History Tobacco Use [...] Date/Time Associated Diagnosis Comments OUTSIDE LAB Routine 07/20/2022 documented in this encounter Results * OUTSIDE LAB (07/20/2022) Provider Abstract LAB documented in this encounter Visit Diagnoses Not on filedocumented in this encounter Care Teams Plant Operations Coordinator Relationship Specialty Start Date End Date Lizandro Gibbs MD PCP - General Internal Medicine 04/20/12 [address] Medical [facility] [address] [place] [address] Specialist Cardiovascular Disease 09/16/21 6/ 3 documented as of this encounter
--- OUTSIDE RECORDS SUMMARY | 2024-10-03 16:59 | XMS_ITS | Clinical Summary ---
Author Organization [facility] Address [address] [place] [address] Care Team Providers Care Machine Sneller Name Role Phone Lizandro Gibbs MD Primary Care Provider [phone] Medical History Medical History Date Comments Essential hypertension DX:Essent ial hypertension Hyperlipidemia DX:Hyperlipidemi a COPD (chronic obstructive pu lmonary disease) ([facility]/HCC) DX:COPD (chronic obstructive pulmonary disease) ([facility]) Depression DX:Depression Restless leg syndrome DX:Restles s leg syndrome Chronic respiratory failure with hypoxia DX:Chronic respiratory failure with hypoxia ([facility]) Acute and chronic respirator y failure with hypoxia DX:Acute and chronic respira tory failure with hypoxia ([facility]) Hyponatremia DX:Hyponatremia Depression DX:Depression Family History Medical [...] Documents on File Type Date Recorded Patient Wound Care Technician Expl anation Health Care Decision (hx) 10/07/2023 AD HEWITT DIRECTIVE Health Care Decision (hx) 10/07/2023 AD HEWITT DIRECTIVE Care Teams Machine Sneller Relationship Specialty Start Date End Date Lizandro Gibbs MD PCP - General Internal Medicine 04/20/12
--- OUTSIDE RECORDS SUMMARY | 2024-10-03 16:59 | XMS_ITS | Encounter Summary ---
Author Organization [facility] Address [address] [place] [address] Care Team Providers Care Machine Fur Cleaner Name Role Phone Lizandro Gibbs MD Primary Care Provider Stuart Shahid MD Unavailable [phone] Encounter Details Date Type Department Care Team Description 04/22/2021 Board Of Directors Report Medical Records [address] [place] [address] Stan Brito MD Social History Tobacco Use [...] on filedocumented in this encounter Care Teams Machine Fur Cleaner Relationship Specialty Start Date End Date Liazndro Gibbs MD PCP - General Internal Medicine 04/20/12 Stuart Cardenas MD Medical [facility] [address] [place] [address] Specialist Cardiovascular Disease 09/16/21 3 documented as of this encounter
--- OUTSIDE RECORDS SUMMARY | 2024-10-03 16:59 | XMS_ITS | Encounter Summary ---
Author Organization [facility] Address [address] [place] [address] Care Team Providers Care Grading Clerk Name Role Phone Lizandro Gibbs MD Primary Care Provider Stuart Shahid MD Unavailable Encounter Details Date Type Department Care Team Description 10/27/2021 SCAN Medical Records [address] [place], [place] [id number] [place] [address] Social History Tobacco Use Types Packs/Day Years [...] on filedocumented in this encounter Care Teams Grading Clerk Relationship Specialty Start Date End Date Lizandro Gibbs MD PCP - General Internal Medicine 04/20/12 Stuart Cardenas MD Medical [facility] [address] [place] [address] Specialist Cardiovascular Disease 09/16/21 6/2 3 documented as of this encounter
--- OUTSIDE RECORDS SUMMARY | 2024-10-03 16:59 | XMS_ITS | Encounter Summary ---
Author Organization [facility] Address [address] [place] [address] Care Team Providers Care Recreation Counselor Name Role Phone Lizandro Gibbs MD Primary Care Provider Stuart Shahid MD Unavailable [phone] Encounter Details Date Type Department Care Team Description 07/20/2022 SCAN Medical Records [address] [place] [address] Abstract, Provider Social History Tobacco Use Types [...] on filedocumented in this encounter Care Teams Recreation Counselor Relationship Specialty Start Date End Date Lizandro Gibbs MD PCP - General Internal Medicine 04/20/12 Stuart Cardenas MD Medical [facility] [address] [place] [address] Specialist Cardiovascular Disease 09/16/21 6/ 3 documented as of this encounter
--- OUTSIDE RECORDS SUMMARY | 2024-10-03 16:59 | XMS_ITS | Encounter Summary ---
Author Organization [facility] Address [address] [place] [address] Care Team Providers Care Bearing Maker Name Role Phone Lizandro Gibbs MD Primary Care Provider Stuart Shahid MD Unavailable [phone] Encounter Details Date Type Department Care Team Description 03/31/2021 SCAN Medical Records [address] [place] [address] Stan Brito MD Social History Tobacco Use [...] on filedocumented in this encounter Care Teams Bearing Maker Relationship Specialty Start Date End Date Lizandro Gibbs MD PCP - General Internal Medicine 04/20/12 Stuart Cardenas MD Medical [facility] [address] [place] [address] Specialist Cardiovascular Disease 09/16/21 3 documented as of this encounter
--- OUTSIDE RECORDS SUMMARY | 2024-10-03 16:59 | XMS_ITS | Encounter Summary ---
Author Organization [facility] Address [address] [place] [address] Care Team Providers Care Franchise Broker Name Role Phone Lizandro Gibbs MD Primary Care Provider Unav ailable Encounter Details Date Type Department Care Team Description 10/01/2023 Hospital Medical Records [address] [place], [place] [phone] [place] [address] Social History Tobacco Use Types Packs/Day Years [...] on filedocumented in this encounter Care Teams Franchise Broker Relationship Specialty Start Date End Date Lizandro Gibbs MD PCP - General Internal Medicine 04/20/12 documented as of this encounter
--- OUTSIDE RECORDS SUMMARY | 2024-10-03 16:59 | XMS_ITS | Encounter Summary ---
Author Organization [facility] Address [address] [place] [address] Care Team Providers Care Metal Burrer Name Role Phone Lizandro Gibbs MD Primary Care Provider Stuart Shahid MD Unavailable [phone] Encounter Details Date Type Department Care Team Description 10/02/2021 SCAN Medical Records [address] [place] [address] Abstract, Provider Social History Tobacco Use Types [...] on filedocumented in this encounter Care Teams Metal Burrer Relationship Specialty Start Date End Date Lizandro Gibbs MD PCP - General Internal Medicine 04/20/12 Stuart Cardenas MD Medical [facility] [address] [place] [address] Specialist Cardiovascular Disease 09/16/21 6/2 3 documented as of this encounter
--- OUTSIDE RECORDS SUMMARY | 2024-10-03 16:59 | XMS_ITS | Encounter Summary ---
Author Organization [facility] Address [address] [place] [address] Care Team Providers Care Automatic Developer Name Role Phone Lizandro Gibbs MD Primary Care Provider Stuart Shahid MD Unavailable [phone] Encounter Details Date Type Department Care Team Description 04/14/2016 Hospital Medical Records [address] [place] [address] Social History Tobacco Use Types Packs/Day Years [...] on filedocumented in this encounter Care Teams Automatic Developer Relationship Specialty Start Date End Date Lizandro Gibbs MD PCP - General Internal Medicine 04/20/12 Stuart Cardenas MD Medical [facility] [address] [place] [address] Specialist Cardiovascular Disease 09/16/21 3 documented as of this encounter
--- OUTSIDE RECORDS SUMMARY | 2024-10-03 16:59 | XMS_ITS | Encounter Summary ---
Author Organization [facility] Address [address] [place] [address] Care Team Providers Care Packing Machine Can Feeder Name Role Phone Lizandro Gibbs MD Primary Care Provider Stuart Shahid MD Unavailable [phone] Encounter Details Date Type Department Care Team Description 09/16/2021 SCAN Medical Records [address] [place], [place] [phone] [place] [address] Social History Tobacco Use Types Packs/Day Years [...] on filedocumented in this encounter Care Teams Packing Machine Can Feeder Relationship Specialty Start Date End Date Lizandro Gibbs MD PCP - General Internal Medicine 04/20/12 Stuart Cardenas MD Medical [facility] [address] [place] [address] Specialist Cardiovascular Disease 09/16/21 3 documented as of this encounter
--- OUTSIDE RECORDS SUMMARY | 2024-10-03 16:59 | XMS_ITS | Encounter Summary ---
Author Organization [facility] Address [address] [place] [address] Care Team Providers Care Knockout Man Name Role Phone Lizandro Gibbs MD Primary Care Provider Stuart Shahid MD Unavailable [phone] Encounter Details Date Type Department Care Team Description 07/06/2017 Release of Information Medical Records [address] [place] [address] Abstract, Provider Social History Tobacco Use Types [...] on filedocumented in this encounter Care Teams Knockout Man Relationship Specialty Start Date End Date Lizandro Gibbs MD PCP - General Internal Medicine 04/20/12 Stuart Cardenas MD Medical [facility] [address] [place] [address] Specialist Cardiovascular Disease 09/16/21 3 documented as of this encounter
--- OUTSIDE RECORDS SUMMARY | 2024-10-03 16:59 | XMS_ITS | Encounter Summary ---
Author Organization [facility] Address [address] [place] [address] Care Team Providers Care Commodity Merchant Name Role Phone Lizandro Gibbs MD Primary Care Provider Stuart Shahid MD Unavailable Encounter Details Date Type Department Care Team Description 06/25/2017 Transfer Records Medical Records [address] [place] [address] Abstract, Provider Social History Tobacco Use Types [...] on filedocumented in this encounter Care Teams Commodity Merchant Relationship Specialty Start Date End Date Lizandro Gibbs MD PCP - General Internal Medicine 04/20/12 Stuart Cardenas MD Medical [facility] [address] [place] [address] Specialist Cardiovascular Disease 09/16/21 6 3 documented as of this encounter
--- OUTSIDE RECORDS SUMMARY | 2024-10-03 16:59 | XMS_ITS | Encounter Summary ---
Author Organization [facility] Address [address] [place] [address] Care Team Providers Care Sales Force Developer Name Role Phone Lizandro Gibbs MD Primary Care Provider Stuart Shahid MD Unavailable [phone] Encounter Details Date Type Department Care Team Description 09/01/2021 SCAN Medical Records [address] [place] [address] Abstract, Provider Social History Tobacco Use Types [...] on filedocumented in this encounter Care Teams Sales Force Developer Relationship Specialty Start Date End Date Lizandro Gibbs MD PCP - General Internal Medicine 04/20/12 Stuart Cardenas MD Medical [facility] [address] [place] [address] Specialist Cardiovascular Disease 09/16/21 6/ 3 documented as of this encounter
--- OUTSIDE RECORDS SUMMARY | 2024-10-03 16:59 | XMS_ITS | Encounter Summary ---
Author Organization [facility] Address [address] [place] [address] Care Team Providers Care Fence Installer Foreman Name Role Phone Lizandro Gibbs MD Primary Care Provider Stuart Shahid MD Unavailable [phone] Reason for Visit * Reason Onset Date Comments other 08/10/2022 Encounter Details Date Type Department Care Team Description 08/10/2022 Telephone Cardio PVC POC [address] [place] [address] Stuart Cardenas MD [address] [place] [address] other Social History Tobacco Use Types Packs/Day [...] go away . Please call patient at [phone]. documented in this encounter Plan of Treatment Not on file documented as of this encounter Visit Diagnoses Not on filedocumented in this encounter Care Teams Fence Installer Foreman Relationship Specialty Start Date End Date Lizandro Gibbs MD PCP - General Internal Medicine 04/20/12 Stuart Cardenas MD Medical [facility] [address] [place] [address] Specialist Cardiovascular Disease 09/16/21 3 documented as of this encounter
--- OUTSIDE RECORDS SUMMARY | 2024-10-03 16:59 | XMS_ITS | Encounter Summary ---
Author Organization [facility] Address [address] [place] [address] Care Team Providers Care Asbestos Wire Finisher Name Role Phone Lizandro Gibbs MD Primary Care Provider Stuart Shahid MD Unavailable [phone] Reason for Visit * Reason Onset Date Comments APPOINTMENT 10/30/2022 11/04/22 Encounter Details Date Type Department Care Team Description 10/30/2022 Telephone Cardio PVC POC [address] [place] [address] Stuart Cardenas MD [address] [place] [address] APPOINTMENT (11/04/22) Social History Tobacco Use Types [...] confirm cancellation request for 11/04/22 with via [employer]. documented in this encounter Plan of Treatment Not on file documented as of this encounter Visit Diagnoses Not on filedocumented in this encounter Care Teams Asbestos Wire Finisher Relationship Specialty Start Date End Date Lizandro Gibbs MD PCP - General Internal Medicine 04/20/12 Stuart Cardenas MD [address] [place] [address] Specialist Cardiovascular Disease 09/16/21 3 documented as of this encounter
--- OUTSIDE RECORDS SUMMARY | 2024-10-03 16:59 | XMS_ITS | Encounter Summary ---
Author Organization [facility] Address [address] [place] [address] Care Team Providers Care Lime Burner Name Role Phone Lizandro Gibbs MD Primary Care Provider Stuart Shahid MD Unavailable [phone] Encounter Details Date Type Department Care Team Description 05/03/2018 SCAN Medical Records [address] [place] [address] Abstract, Provider Social History Tobacco Use Types [...] on filedocumented in this encounter Care Teams Lime Burner Relationship Specialty Start Date End Date Lizandro Gibbs MD PCP - General Internal Medicine 04/20/12 Stuart Cardenas MD [address] [place] [address] Specialist Cardiovascular Disease 09/16/21 3 documented as of this encounter
--- OUTSIDE RECORDS SUMMARY | 2024-10-03 16:59 | XMS_ITS | Encounter Summary ---
Author Organization [facility] Address [address] [place] [address] Care Team Providers Care Skiver Sock Linings Name Role Phone Lizandro Gibbs MD Primary Care Provider Stuart Shahid MD Unavailable [phone] Encounter Details Date Type Department Care Team Description 04/15/2016 SCAN Medical Records [address] [place] [address] Lizandro Gibbs MD Social History Tobacco Use [...] on filedocumented in this encounter Care Teams Skiver Sock Linings Relationship Specialty Start Date End Date Lizandro Gibbs MD PCP - General Internal Medicine 04/20/12 Stuart Cardenas MD [address] [place] [address] Specialist Cardiovascular Disease 09/16/21 3 documented as of this encounter
--- OUTSIDE RECORDS SUMMARY | 2024-10-03 16:59 | XMS_ITS | Encounter Summary ---
Author Organization [facility] Address [address] [place] [address] Care Team Providers Care Lead Die Molder Name Role Phone Lizandro Gibbs MD Primary Care Provider Stuart Shahid MD Unavailable [phone] Encounter Details Date Type Department Care Team Description 07/02/2022 SCAN Medical Records [address] [place] [address] Abstract, Provider Social History Tobacco Use Types [...] Date/Time Associated Diagnosis Comments OUTSIDE EKG Routine 07/02/2022 OUTSIDE PLAIN FILM Routine 07/02/2022 documented in this encounter Results * OUTSIDE PLAIN FILM (07/02/2022) Provider Abstract RADIOLOGY * OUTSIDE EKG (07/02/2022) Provider Abstract CARDIOLOGY documented in this encounter Visit Diagnoses Not on filedocumented in this encounter Care Teams Lead Die Molder Relationship Specialty Start Date End Date Lizandro Gibbs MD PCP - General Internal Medicine 04/20/12 Stuart Cardenas MD Medical [facility] [address] [place] [address] Specialist Cardiovascular Disease 09/16/21 3 documented as of this encounter
--- OUTSIDE RECORDS SUMMARY | 2024-10-03 16:59 | XMS_ITS | Encounter Summary ---
Author Organization [facility] Address [address] [place] [address] Care Team Providers Care Associate Product Manager Name Role Phone Lizandro Gibbs MD Primary Care Provider Stuart Shahid MD Unavailable [phone] Encounter Details Date Type Department Care Team Description 08/11/2019 SCAN Medical Records [address] [place] [address] Abstract, Provider Social History Tobacco Use Types [...] on filedocumented in this encounter Care Teams Associate Product Manager Relationship Specialty Start Date End Date Lizandro Gibbs MD PCP - General Internal Medicine 04/20/12 Stuart Cardenas MD Medical [facility] [address] [place] [address] Specialist Cardiovascular Disease 09/16/21 6/2 3 documented as of this encounter
== END 2024-10-03 15:15 | disposition home or self-care (01) ==
LOC: HO.HCS 14:12
PROVIDERS: PCP Internal Medicine
DX: I48.0 Paroxysmal atrial fibrillation (principal); I51.89 Other ill-defined heart diseases; I27.20 Pulmonary hypertension, unspecified; D64.9 Anemia, unspecified; Z09 Encounter for follow-up examination after completed treatment for conditions other than malignant neoplasm
CPT/HCPCS: 99214; G2211

== ENCOUNTER → 2024-10-03 14:11 | Outpatient (BNVA) | payer OTHER, SELFPAY | PROVIDERS: PCP Internal Medicine | DX: I48.0 Paroxysmal atrial fibrillation (principal); J44.9 Chronic obstructive pulmonary disease, unspecified; I27.20 Pulmonary hypertension, unspecified; I34.81 Nonrheumatic mitral (valve) annulus calcification; I51.89 Other ill-defined heart diseases; D64.9 Anemia, unspecified; Z79.01 Long term (current) use of anticoagulants; Z99.81 Dependence on supplemental oxygen; Z09 Encounter for follow-up examination after completed treatment for conditions other than malignant neoplasm | CPT/HCPCS: 99212 ==

== ENCOUNTER 2024-10-27 13:26 | Outpatient (AMB) | payer OTHER, SELFPAY ==
--- NOTE | 2024-10-27 13:29 | A.OFFVIS_ITS ---
Vital Signs 10/27/24 13:30 Height 5 ft 3 in Weight 162 lb BMI 28.7 BP 123/56 L Blood Pressure Location Lt brachial Position Sitting Pulse 68 Intake Visit Reasons: hospital follow up Intake Note: Tanya presents in the office as a ED follow up. CC: She states that she is having coughs and phlegm coming up. Other than that she denies GI concerns. Product Sales Engineer Required: No Allergies No Known Allergies Allergy (Verified 08/30/25 12:13) Medication List - Last Reconciled 10/27/24 by Dionicio Velez MD acetaminophen 1,000 mg (2 x 500 mg) PO TID PRN albuterol sulfate 90 mcg/actuation 1 puff inhalation Q4H PRN albuterol sulfate 2.5 mg inhalation Q6H PRN alprazolam 0.25 mg PO DAILY PRN apixaban (Eliquis) 5 mg PO BID ascorbic acid (vitamin C) (Vitamin C) 500 mg PO DAILY azelastine 1 spray intranasal BID biotin (Hair, Skin and Nails (biotin)) 10,000 mcg PO DAILY citalopram 40 mg PO DAILY digoxin 0.125 mg See Protocol PO DAILY diltiazem HCl CD 240 mg See Protocol PO DAILY famotidine 20 mg PO BEDTIME PRN ferrous sulfate 325 mg PO DAILY fluticasone propionate 50 mcg/actuation (Flonase Allergy Relief) 50 mcg intranasal DAILY PRN wsjziewxohj-snodgwtpb-weetcnfe 100-62.5-25 mcg (Trelegy Ellipta) 1 inh PO DAILY furosemide mg PO gabapentin 300 mg PO BEDTIME ipratropium bromide 2 sprays intranasal QID mecobalamin (vitamin B12) 1,000 mcg PO DAILY montelukast 10 mg PO BEDTIME mupirocin 2% 1 appl topical TID PRN nebulizers As directed Oxygen Home Use As directed pravastatin 40 mg PO DAILY prednisone See Taper mg PO DIRECTED psyllium husk (Metamucil) 0.4 grams PO DAILY ropinirole 0.5 mg PO BEDTIME trazodone 50 mg PO BEDTIME PRN turmeric root extract 500 mg PO DAILY HPI HPI hospital follow up: Details: GI clinic visit for this 83 YF for FU after [place] [facility] [place]05[place]24 with acute on chronic anemia and positive stool occult blood. TODAY'S VISIT: Pt states that she is having coughs and phlegm coming up. Other than that she denies GI concerns. Pt is accompanied by her daughter Pt is scheduled for an iron infusion on November 02 and November 10 Notes intermittent fatigue. Complains of cough and phlegm related to COPD. Weighs herself daily and wt was 160 lbs today. Patient denies symptoms of heartburn, dysphagia, nausea, vomiting, change in appetite or weight. Feels full fast. Intermittent constipation and takes Miralax Stools are black due to oral iron. Has to have a small BM every time she pees Takes Miralax prn and advised to take it daily. Denies being on chronic anticoagulation. Pt quitted smoking a long time ago and takes occasional beer. 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 LABS IN [place] : Reviewed IMAGING STUDIES: 08/25/[address] SCAN SHOWED: No acute findings to explain the patient's anemia. Exam is limited by respiratory motion. Prior ventral hernia repair with mesh with 2 areas of recurrent herniation containing fat as described. No findings of occult malignancy. 09/01/24 CT ENTEROGRAPHY SHOWED: 1. Bilateral pleural effusions with underlying consolidation, differential considerations noted. 2. Three separate ventral abdominal hernias. ENDOSCOPIC STUDIES: 08/28/24 EGD SHOWED: ESOPHAGUS: Mildly tortuous esophagus. STOMACH: Gastritis and benign appearing gastric polyps DUODENUM: Benign appearing duodenal nodule No source of anemia or UGI bleeding noted in the upper GI tract during EGD 08/31/24 COLONOSCOPY SHOWED: Impression: 1. Normal colon mucosa 2. Diverticulosis 3. Hemorrhoids 4. Old blood in terminal ileum Recommendations: - No active bleeding was noted today -brown stool in colon, old blood in small bowel. - Suspect had small bowel bleeding likely from AVMs vs ulcer vs polyp vs mass - Recommend CT enterography - If no obvious lesions identified on CTE, can resume anticoagulation and consider conservative management with iron supplementation - If has recurrence of overt GIB, can then consider VCE to r/o flat lesions like AVMs. If the AVMs are present distal to the tattoo placed in T.I, can repeat colonoscopy. However, if it is proximal to the tattoo pt may not be best candidate for a DBE which tends to be a prolonged procedure - OK for liquid diet until CTE results are available PAST GI HISTORY BY REVIEW OF MEDICAL RECORDS: 83 YF with?chronic hypoxemic respiratory failure, COPD on chronic 2 L home O2, paroxysmal AFib on Eliquis, HLD, HTN, venous insufficiency with chronic lower leg edema, pulmonary hypertension, and anxiety seen [place] [facility] [place] with?SOB, PRADO, and cough x2 weeks, worse the past few days. Pt initially presented to Dr. Brito in pulmonology who started her on Levaquin and steroids. Symptoms did not resolve and pt continued to feel fatigued, weak, and unable to walk. Reports has had dark-colored stools for the past 2 weeks and denies passage of BRBPR Pt admits to a hx of chronic constipation, nausea and denies heartburn, dysphagia, abdominal pain, fever or chills, chest pain/pressure, palpitations.. She denies recent change in her appetite or weight (wt has remained stable at 161 to 162 lbs) Pt was on oral iron and discontinued 04/2024. Has also noted increasing lower leg edema for the past few days. Last dose of Eliquis was on the evening of 08/24/24. In the ED pt was tachypneic up to 24, and with soft BP as low as 113/33. Labs showed microcytic anemia of H&H 4.9/18.2, troponin 18.9, BNP 321, and stool positive for occult blood. Pt tested negative for flu, COVID, and RSV. CXR showed mild basilar subsegmental atelectasis or infiltrates. EKG demonstrated normal sinus rhythm without evidence of significant ST elevations or depressions. Pt was treated with Protonix and transfused 2 units PRBCs and admitted for eval uation of acute blood loss anemia likely secondary to UGIB in a pt on anticoagulation PAST GI HX BY REVIEW OF MEDICAL RECORDS: PAST [place] FOR ANEMIA: iron studies and a ferritin: 15381/4/12. transgluteal IgA: <1. B12 and folate levels: 361/13.5. LDH: 222. SIEP: WNL. [facility] Medical History COPD (chronic obstructive pulmonary disease) Chronic rhinitis PAF (paroxysmal atrial fibrillation) Atrial fibrillation Atrial fibrillation with rapid ventricular response Lung nodule Pleural effusion Pulmonary hypertension Mitral annular calcification Aortic valve calcification Cough Sinusitis Chronic respiratory failure Pneumonia Surgical History No pertinent past surgical history Family History Brother Myocardial infarction Father Stroke Maternal Grandmother Bone cancer Social History Household Members: Family and Children Household Members Other:: Daughter and family Both parents involved: No Caregiver staying overnight: No Housing: House Are you a primary congregational care pastor to a significant other at home: No Do you presently have visiting nurse or other home services: No 75 years or older and lives alone: No Alcohol intake: never Patient Tobacco Use Status: Former Tobacco user Tobacco use type: Cigarette e-Cigarette/Vaping Use: Never Used Second Hand Smoke Exposure: No Advance Directives Date on File: 06/21/23 service: No Current occupational status: retired Current occupational exposures/hazards: No Cognitive needs: No Hearing needs: No Vision needs: No Review of Systems Const All systems reviewed & are unremarkable except as noted in HPI and below Physical Exam Vital Signs: Last Vital Signs Pulse 68 10/27/24 13:30 BP 123/56 L 10/27/24 13:30 BMI result Body Mass Index 28.7 Const General: cooperative, healthy appearing, comfortable and no acute distress Orientation/consciousness: patient oriented x3 Limitations: wheelchair HEENT Head: Yes normal to inspection Neck Neck: Yes normal visual inspection, Yes trachea midline and Yes supple Resp Other: On chronic 2 L supplemental oxygen Effort & Inspection: normal respiratory effort Auscultation: clear to auscultation bilaterally, no crackles, no rales, no rhonchi and no wheezes Cardio Jugular venous distension: no JVD Palpation: normal PMI Rate: regular rate Rhythm: regular rhythm Heart sounds: S1 normal heart sound present, S2 normal heart sound present, no click, no gallops, no murmurs and no rubs Peripheral pulses: Peripheral pulses 2+ throughout GI Inspection: Yes normal to inspection Palpation (GI): Soft to palpation Auscultation: normal bowel sounds Skin General skin exam: no rashes or lesions noted Neuro General: patient oriented x3 Extrem General: No edema Psych Appearance: grossly normal Mental Status: mental status grossly normal Speech and movement: Normal speech and movement present Assessment & Plan Assessment & Plan (1) Microcytic hypochromic anemia: Code(s): D50.9 - Iron deficiency anemia, unspecified Category: Medical (2) Constipation: Code(s): K59.00 - Constipation, unspecified Category: Medical (3) Abdominal discomfort: Code(s): R10.9 - Unspecified abdominal pain Category: Medical Plan 83 YF with?chronic hypoxemic respiratory failure, COPD on chronic 2 L home O2, paroxysmal AFib on Eliquis, HLD, HTN, venous insufficiency with chronic lower leg edema, pulmonary hypertension, and anxiety [place] [facility] [place] 09/05/24 with?two week history of SOB, PRADO, and cough and dark colored stools. Pt initially presented to Dr. Brito in pulmonology who started her on Levaquin and steroids. She reported having a colonoscopy at [facility] > 10 yrs ago and polyps were removed Stool Cologuard test was negative per Oncology report Labs showed microcytic anemia of H&H 4.9/18.2, troponin 18.9, BNP 321, and stool positive for occult blood. Pt tested negative for flu, COVID, and RSV. Pt was treated with Protonix and transfused 2 units PRBCs. 08/28/24 EGD SHOWED Gastritis and benign appearing gastric polyps and benign appearing duodenal nodule 08/31/24 colonoscopy showed old blood in TI, mild to moderate left-sided diverticulosis and large internal hemorrhoids without stigmata of recent bleeding. Terminal ileum was deeply intubated up to 40 cm with old blood noted. A tattoo was placed at the furthest extent. Bleeding was felt to be from small bowel AVM, ulcer or polyp CTE showed three separate ventral abdominal hernias. 10/27/24 Notes intermittent fatigue. Complains of cough and phlegm related to COPD. Weighs herself daily and wt was 160 lbs today. Pt advised to check labs for FU of KOBY FU in 4 months Orders: Orders Ferritin 10/27/24 D50.9 - Iron deficiency anemia, unspecified Complete Blood Count no Diff 10/27/24 D50.9 - Iron deficiency anemia, unspecified Coding Level of Care Code Est Pt Level 4 (26961) Diagnoses Microcytic hypochromic anemia D50.9 Constipation K59.00 Abdominal discomfort R10.9 Time Spent (min) 20
[2024-10-27 13:30] VITALS: BP 123/56; PULSE 68; BMI 28.7
--- OUTSIDE RECORDS SUMMARY | 2024-10-27 14:07 | XMS_ITS | Clinical Summary ---
Author Organization [facility] Address [address] [place] [address] Care Team Providers Care Human Resources Clerk Name Role Phone Lizandro Gibbs MD Primary Care Provider [phone] Medical History Medical History Date Comments Essential hypertension DX:Essent ial hypertension Hyperlipidemia DX:Hyperlipidemi a COPD (chronic obstructive pu lmonary disease) (CMS/HCC V24, CMS/HCC V28) DX:COPD (chronic o bstructive pulmonary disease) ([facility]) Depression DX:Depression Restless leg syndrome DX:Restles s leg syndrome Chronic respiratory failure with hypoxia (CMS/HCC V24, CMS/HCC V28) DX:Chronic respiratory fail ure with hypoxia ([facility]) Acute and chronic respirator y failure with hypoxia (CMS/HCC V24, CMS/HCC V28) DX:Acute and c hronic respiratory failure with hypoxia ([facility]) Hyponatremia DX:Hyponatremia Depression DX:Depression Family History Medical [...] Vaccines (1 of 2) 1992 RSV Immunization Adult Patie nts (1 - 1-dose 75+ series) 2017 Cholesterol Screening (Lipid Panel) 06/13/2022 Depression Screening 06/13/2022 Falls Risk Assessment 06/13/2022 Osteoporosis Screening (Bone Density Screening) 06/13/2022 Social Influencers of Health Screening 06/13/2022 Hypertension/CHF/CAD Annual BMP Blood Test 06/20/2022 COVID-19 Vaccine ( - 2023-2 5 season) 2024 Influenza Vaccine (Season Ended) 2025 04/06/20 17 HIB Vaccines Aged Out No longer eligi [...] age to complete this topic Meningococcal B Vaccine Aged Out No l onger eligible based on patient's age to complete this topic RSV Immunization Patients Un jaime 20 months Aged Out No longer eligible b ased on patient's age to complete this topic Varicella Vaccines Aged Out No longer eligible based on patient's age to complete this topic Advance Directives Documents on File Type Date Recorded 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
--- OUTSIDE RECORDS SUMMARY | 2024-10-27 14:07 | XMS_ITS | Data Portability ---
Author Organization [facility] [address] Address [address] [place] [address] Care Team Providers Care Diazo Technician Name Role Phone JOHN HERNANDEZ Primary Care Provider [phone] Assessment No assessment recorded. Plan of Treatment [...] By Organization Details Last Modified Time 07/02/2022 [id number] cough: care instructions Not available 07/02/2022 14:59:31 [...] Details Recorded Time Chronic obstructive pulmonary disease 12355676 Active 2021 [facility] 14:28:17 Hypertensive disorder 14481838 Active 2021 [facility] 14:35:25 Hyperlipidemia 83929975 Active 2021 JACKELYN PÉREZCECINadine grover, [place] - [facility] 14:35:44 Restless legs 95825965 Active 2021 JACKELYN grover, [place] - [facility] [...] Updated DateTime 2 160.02 cm 28.9 kg/m2 97404.5 6 g 88 % 88 % 24 [...] SNOMED-CT Code Diagnosis ICD10 Code Diagnosis Note [id number] [place] [address] 07/16/2019 10:19:21 07/16/2019 12:01:17 [id number] [place] [address] 01/10/2021 16:37:47 01/10/2021 17:35:59 [id number] [facility] [address] [place] [address] 07/02/2022 13:20:27 07/02/2022 15:14:04 Acute exacerbation of chronic obstructive pulmonary disease 009027912 J44.1 Health Concerns Section Related Observation LastModified by Organization Detai ls LastModified Time None Recorded Concern Status LastModified by Organization Details LastModified Time None Recorded Advance Directives Directive None Recorded Payers Encounter Date Sequence Insurance Name Policy Number Policy Urena Covered Member ID Urena Member ID Guarantor Name 07/16/2019 1 [facility] [id number] Tanya Joya [id number] Tanya Joya 01/10/2021 1 [facility] [id number] Tanya Joya [id number] Tanya Joya 07/02/[address] [place] [address] [id number] Tanya M Toan [id number] Tanya Joya Notes Date Note Type Note [...] LINO Simon [address] [place], [address], [place] - [facility] 07/02/2022 15:09:16 OBGyn Episode No OBEpisode recorded.
== END 2024-10-27 14:33 | disposition home or self-care (01) ==
LOC: HO.HGI 13:26
PROVIDERS: PCP Internal Medicine; Visit Provider Internal Medicine Gastroenterology
DX: D50.9 Iron deficiency anemia, unspecified (principal); K59.00 Constipation, unspecified; R10.9 Unspecified abdominal pain
CPT/HCPCS: 99499

== ENCOUNTER → 2024-10-27 13:26 | Outpatient (BNVA) | payer OTHER, SELFPAY | PROVIDERS: PCP Internal Medicine; Visit Provider Internal Medicine Gastroenterology ==

== ENCOUNTER 2024-11-10 08:30 | Outpatient (RCR) | payer OTHER, SELFPAY ==
[2024-11-02 13:52] VITALS: BP 147/39; PULSE 63; RESP 18; TEMP 36.7; O2SAT 96
[2024-11-02] MEDS: Ferric Carboxymaltose 750 MG in 0.9 % Sodium Chloride 250 ML 1060 MG IV (14:15)
[2024-11-10 08:41] VITALS: BP 131/42; PULSE 69; RESP 16; TEMP 35.8; O2SAT 96
[2024-11-10] MEDS: Ferric Carboxymaltose 750 MG in 0.9 % Sodium Chloride 250 ML 1060 MG IV (09:07)
== END 2024-11-10 09:33 | disposition home or self-care (01) ==
LOC: HO.INF 08:30
PROVIDERS: Visit Provider Internal Medicine Medical Oncology
DX: D64.9 Anemia, unspecified (principal)
CPT/HCPCS: 96365; J1439

== ENCOUNTER 2024-12-13 10:11 | Outpatient (AMB) | payer OTHER, SELFPAY ==
--- NOTE | 2024-12-13 10:16 | MHC.OFFVIS ---
Vital Signs 12/13/24 10:20 Height 5 ft 3 in Weight 160 lb BMI 28.3 BP 127/60 Blood Pressure Location Rt brachial Position Sitting Pulse 71 Pulse Source Pulse Oximeter Pulse Oximetry (%) 91 L Oxygen Delivery Method Nasal Cannula Oxygen Flow Rate 2 Intake Visit Reasons: COPD/[employer] paperwork Allergies No Known Allergies Allergy (Verified 12/13/24 10:32) HPI Comments Details: The patient is a 84 -year-old woman with known COPD also chronic respiratory failure on oxygen. Apparently she was in usual state health until recently her became sick with RSV and was admitted to the [facility], [place]. For the last couple weeks she has had worsening respiratory symptoms. She has been evaluated twice by her primary care doctor. She has been given antibiotics and prednisone. However, she continues to worsen. Today she has been using 4 L pulse on her oxygen device. She is using a mask and she was noted to be 88%. However, the patient is not activating the oxygen based on the fact that she her nasal passages are congested and she is breathing through her mouth. Therefore I switched her oxygen to continues 2 L and she maintain a pulse ox of 92%. I explained to the patient that she is to avoid using the conserving device valve at this time. The patient was provided additional antibiotics and prednisone. If she is no better in 24-48 hours. she has to go to the hospital. However, if she worsens she also she go the hospital. ??? 08/04/2022 the patient is here for a sick visit. Apparently she has been having issues with heart. She was admitted briefly at [facility] and then here [facility] found to have AFib with rapid ventricular response. She was placed on Eliquis and ultimately had her calcium channel sary increase for rate control. The patient has been having worsening cough however. Her cough is persistent and moderate to severe. At times is productive of yellow phlegm. Having hard time sleeping because of the cough. She has tried multiple jwsn-pnw-skpkekh remedies without any significant improvement. On examination seems like she has a good amount of purulent secretions that are coming down her posterior pharynx suggesting a component of sinusitis. the patient also had chest x-rays while being in the hospital July demonstrating some degree of atelectasis and minimal pleural effusion. We talked about her medications including lisinopril that is likely not helping with her cough. Although as part of the primary cause of the cough. At this point based on the severity of the cough will be reasonable to switch her to an ARB. 09/22/2022 the patient is here for pulmonary follow-up visit. She is finally feeling better. The cough significantly better. She still has a productive cough and brings up phlegm. We did talk about performing CPT with flutter valve. She does have 1 available and she can use it twice a day. Explained to her that she is always going to bring up some phlegm. At this time the azithromycin 3 times a week seems to be helpful. Coming off the lisinopril is also helpful. The Trelegy inhaler she is using once a day with good effect. Sometimes it makes her cough. I did instruct her to she is taking little softer so she does not irritate too much to the upper airway. The AFib seems to be in good control. We did review her x-ray from July 10 with demonstrating some minimal atelectasis and scoliosis. And at this point will plan to follow-up in 4 months. If the patient has any difficulties prior to that she is to call the office for an earlier evaluation. 11/19/2022 the patient is here for a pulmonary follow-up visit. The patient is feeling better. Her Wilfred inhibitor was stopped and her cough is improved. Although she still has a little productive phlegm. It does bother her. Does not seen significant improvement with the azithromycin. Will go ahead and stop it. I did request a sputum culture will try couple weeks of doxycycline to see if we can clear any significant mucus. Recently she did have a CT scan of the chest done beginning of November 2022 in a personally reviewed it. She does have some moderate degree amount of emphysema and also scoliosis. She also has atelectasis primarily in the left hemithorax there is a segment that appears to be nearly completely obstructed. If the patient continues symptomatic consider bronchoscopy to assess that airway to make sure there was no endobronchial blockage. But at this point clinically the patient is better overall and will try to minimize any semi invasive procedures. Will reassess in a few months. 01/20/2023 the patient is here for pulmonary follow-up visit. Overall the patient is feeling better. She did complete the antibiotics and the chest physical therapy. She continues to have dyspnea on exertion. She also has some fluid overload issues. Her x-ray she had back in July she did have small pleural effusions as well. The patient will benefit from additional diuresis specially with pulmonary hypertension. Holding off on any invasive or semi-invasive diagnostic interventions at this time. She continues use the oxygen with good effect. She continues use her respiratory therapy as well. Will go ahead and prescribe Lasix that she can use for 3-5 days and will monitor closely her weight and her lower extremity edema. If the patient continues use the diuretics she will need to have blood work to monitor her electrolytes and kidney function. 04/29/2023 the patient is here for sick visit. The patient apparently was in his usual state health until sometime in the beginning of April when she started developing worsening respiratory symptoms. The patient was brought to the [facility] ER where she was evaluated. She was admitted to the hospital with COPD exacerbation. She was treated with steroids antibiotics and also respiratory treatments. The patient was able to be discharged. However, she states that upon discharge her cough got worse. She started developing worse chest congestion and also sinus congestion. Moderate severity. She is been using her oxygen more and had to increase the dose. She is been having hard time. She has been on prednisone tapering down currently on 20 mg. on exam she is very rhonchorous with a prolonged expiratory phase and wheezing. She was given a Xopenex and hypertonic saline nebulizer treatment in a sputum culture was able to be sent to the laboratory. In the meantime the patient appears to have a postviral bacterial infection in the lower respiratory now so likely the upper respiratory tract. Therefore, will start her on broad-spectrum antibiotics and will also extend her prednisone use. If the patient is no better she will come in for an x-ray and she will call the office. However, if her symptoms worsen she may need to go back to the ER. 05/13/2023 the patient is here for pulmonary follow-up visit. She is no better. She is having still significant cough. Productive in nature. Has a hard time sleeping because of the cough. Moderate severity. Feels is more over sinuses now. She does have Afrin nasal spray that she can use to 5 days. She did complete the prednisone. She also completed the Vantin. Based on the fact that she is still very congested will go ahead and start her on levofloxacin. The patient can start his low-dose prednisone as well to try to help with the inflammation. And will follow-up with her after her CT scan. The patient develops any worsening symptoms she can always call and we can consider bronchoscopy. She is also complaining of some pleuritic chest discomfort. Currently better. I did advise that if her discomfort returns or if it worsens that she should go to the ER for further evaluation. 07/22/2023 the patient has a telehealth visit today. Her family sick with COVID she does not have COVID as of yet but taking precautions. She is still complaining of productive cough. Her cough is yellowish and green in color. Moderate severity. Sometimes she gets anxious because of the burden of mucus. We did start him on Augmentin but has not seen any significant improvement after several days. She has not finding that she is wheezing at this time. Therefore will hold off on any prednisone. She did respond better to Levaquin in the past. She may have an enteric resistant organism. We did request a sputum culture but she was not able to perform just yet. Will go ahead and switch her again to Levaquin to see if she can feel better. If not will definitely have to get a sputum culture. We did review her recent CT scan of the chest that she had demonstrating interval improvement in the left upper lobe pulmonary nodule going from 9 mm spiculated to now 4.8 mm nodule. This is very reassuring. She does have a new density in the left lower lobe which is not too concerning likely some degree of atelectasis but is definitely new will need follow-up. The patient will return in a couple months to see how her progresses and otherwise will call sooner if her symptoms are not any better. 09/23/2023 the patient is here for hospital follow-up visit. She was recently hospitalized with chest pain and shortness of breath. She was found to have atrial fibrillation with rapid ventricular response. She was placed on amiodarone. The patient did have a chest x-ray done demonstrating hyperinflated lungs and also a question of a broken lead. She will follow-up with cardiology for that. In the meantime she has been on the conserving device tank. Although does not always breathe through her nose and is not enough oxygen. She was found to be hypoxic on arrival. She was down to the mid 80s on 3-4 L pulse. Therefore she was ambulated and the patient needs to be on continues oxygen. Will go ahead and let her [employer] company known to provide her with oxygen times with a regular valve so she can use 2 L at rest and 3 L with activity to maintain a pulse ox above 90%. She continues with respiratory therapy. The patient does have a productive cough. Unfortunately we can not place her on macrolide therapy because she is on amiodarone. Therefore will start her on doxycycline daily as a prophylactic dose to see if we can treat her chronic bronchitis. Will follow-up in 6-8 weeks. 02/03/2024 the patient is here for a pulmonary follow-up visit. Overall she is feeling a lot better. She has been on the Lasix with good response. Her lower extremity edema still there. Is causing some soreness. She had been on 240 mg of potassium that was decreased down to 180. indeed he still can be related to the calcium channel blockers. I will make note of it and let her helminthology teacher note to consider switching her to a beta-sary as this should be okay from a pulmonary standpoint. In the meantime she is going to continue with diuresis. She knows to weigh herself daily and if she gains more than 2 lb in 24 hours she has to take additional diuretics. The patient also needs to monitor closely her electrolytes. From a respiratory status she does continue to use the oxygen with good effect. She does use it 24 hours a day. Her last chest x-ray did demonstrate some heart failure. This is back in September. I do not appreciate any crackles at this time. Therefore do believe her volume status is much better. Will go ahead and repeat her chest x-ray prior to her next follow-up visit in 3-4 months. If the patient develops any worsening symptoms prior to that she will call for an earlier assessment. In addition to that she is complaining about some insomnia. She has been using Benadryl at nighttime. I will give her prescription for trazodone that she can start to see if this can provide some relief without using Benadryl that can result in other adverse effects. 06/09/2024 the patient is here for a pulmonary follow-up visit. The patient overall is doing okay. She continues with respiratory medicine. She does use her oxygen 24 hours a day. We did take her off the oxygen see how she did at rest off the oxygen and her oxygen was between 88-91%. Therefore she is able to take off her oxygen under supervision and with deep breathing she can keep her oxygen around 90-91%. She can take breaks to allow knows to rest. She also has a Ventimask and she can use at times. She did go to the hospital with significant malaise and pain. She was found to have shingles. She did have a chest x-ray which I review demonstrating some slight vascular congestion some Uziel B lines. In addition to that she had blood work done including an elevated CRP likely from the infection. 08/14/2024 the patient is here for a pulmonary follow-up visit. The patient has been having worsening cough chest congestion. Sometimes she chokes up with her own secretions. She had call the office when we sent her a Z-Jarvis in addition to some prednisone. Although she has not seen significant improvement. Positive sick contacts in the family. Therefore will start her on Augmentin. If the patient is able to produce a sputum for culture I did give her a cup with a script in order to get 1 done. She will continue with the current respiratory therapy will provide her with some cough medicine. If the patient is no better worsens she will call or go to the ER. 12/13/2024 the patient is here for pulmonary follow-up visit. Overall she is doing fairly good. The patient still complains of productive cough chest congestion. Still having some difficulty breathing. The oxygen has been helpful. Her inhalers and her respiratory therapy also has been partially helpful. She has not gone to the ER in a few months now which is reassuring. The last time she did have dispatch see at her house and that worked out well. They will consider that service in the future. In the meantime we did talk about her chest congestion and chronic bronchitis. Which can try her on Ohtuvayre nebulizer therapy. Will try to get that approved through her her insurance company. In addition to that she is having some difficulty with sleep. Her sleep-wake cycle is been off. Will start her back on trazodone to help her with that. [facility] Medical History Atrial fibrillation Atrial fibrillation with rapid ventricular response COPD (chronic obstructive pulmonary disease) PAF (paroxysmal atrial fibrillation) Lung nodule Pleural effusion Pulmonary hypertension Mitral annular calcification Aortic valve calcification Cough Sinusitis Chronic respiratory failure Pneumonia Surgical History No pertinent past surgical history Family History Brother Myocardial infarction Father Stroke Maternal Grandmother Bone cancer Social History Household Members: Children Household Members Other:: Daughter and family Housing: House Are you a primary home health care social worker to a significant other at home: No Do you presently have visiting nurse or other home services: No Alcohol intake: never Patient Tobacco Use Status: Former Tobacco user Tobacco use type: Cigarette e-Cigarette/Vaping Use: Never Used Second Hand Smoke Exposure: No Advance Directives Date on File: 06/21/23 service: No Current occupational status: retired Review of Systems Const Reports difficulty sleeping, Denies fever(s) and Denies night sweats ENT Denies change in voice, Reports nasal congestion, Reports nasal discharge and Reports post nasal drip Card Denies chest pain, Reports leg edema and Reports dyspnea on exertion Resp Reports chest congestion, Reports cough, Denies hemoptysis, Reports excessive phlegm production and Reports dyspnea on exertion GI Denies abdominal pain Musc Denies no additional complaints Neuro Denies Neuro-related abnormal movements Psych Denies no additional complaints Celestine/Lymph Denies easy bleeding and Denies lymphadenopathy Physical Exam Vital Signs: Last Vital Signs Pulse 71 12/13/24 10:20 BP 127/60 12/13/24 10:20 Pulse Ox 91 L 12/13/24 10:20 Oxygen Delivery Method Nasal Cannula 12/13/24 10:20 Oxygen Flow Rate 2 12/13/24 10:20 BMI result Body Mass Index 28.3 Const General: alert Orientation/consciousness: patient oriented x3 Neck Neck: Yes normal visual inspection, Yes full ROM, Yes no lymphadenopathy and Yes supple Chest Chest palpation & inspection: normal inspection of the chest Resp Effort & Inspection: normal respiratory effort Auscultation: no rales, no rhonchi, no wheezes and diminished lung sounds Cardio Rate: regular rate Rhythm: regular rhythm Heart sounds: S1 normal heart sound present and S2 normal heart sound present GI Palpation (GI): Soft to palpation and nontender Auscultation: normal bowel sounds Skin General skin exam: no rashes or lesions noted Neuro General: patient oriented x3 Extrem General: No clubbing, No cyanosis and Yes edema Assessment & Plan Assessment & Plan (1) COPD (chronic obstructive pulmonary disease): Code(s): J44.9 - Chronic obstructive pulmonary disease, unspecified Category: Medical Qualifiers: COPD type: emphysema Emphysema type: centrilobular Qualified Code(s): J43.2 - Centrilobular emphysema (2) Chronic respiratory failure: Code(s): J96.10 - Chronic respiratory failure, unspecified whether with hypoxia or hypercapnia Category: Medical Qualifiers: Respiratory failure complication: hypoxia Qualified Code(s): J96.11 - Chronic respiratory failure with hypoxia (3) Cough: Code(s): R05.9 - Cough, unspecified Category: Medical Qualifiers: Cough type: chronic Qualified Code(s): R05.3 - Chronic cough (4) Pulmonary hypertension: Code(s): I27.20 - Pulmonary hypertension, unspecified Category: Medical (5) Pleural effusion: Code(s): J90 - Pleural effusion, not elsewhere classified Category: Medical (6) Lung nodule: Code(s): R91.1 - Solitary pulmonary nodule Category: Medical Plan continue azithromycin cough medicines hypertonic saline for CPT oxygen supplementation 2L/min at rest and 3 liters/min with activity Trazodone for sleep Trelegy daily short-acting beta agonist as needed start Ohtuvayre Nasal saline at night diuresis as tolerated, daily weights. F/U 3-4 months Medications: New trazodone 50 mg PO BEDTIME PRN 30 tabs 6RF sleep Coding Level of Care Code Est Pt Level 4 (71404) Complex EM visit Add On G2211 Diagnoses Centrilobular emphysema J43.2 COPD type: emphysema Emphysema type: centrilobular Chronic respiratory failure with hypoxia J96.11 Respiratory failure complication: hypoxia Chronic cough R05.3 Cough type: chronic Pulmonary hypertension I27.20 Pleural effusion J90 Lung nodule R91.1 Time Spent (min) 17
[2024-12-13 10:20] VITALS: BP 127/60; PULSE 71; O2SAT 91; BMI 28.3
--- OUTSIDE RECORDS SUMMARY | 2024-12-13 11:31 | XMS_ITS | Data Portability ---
Author Organization [facility]O [facility] [address] [place] [address] Care Team Providers Care General Handling Supervisor Name Role Phone JOHN HERNANDEZ Primary Care [...] By Organization Details Last Modified Time 07/02/2022 [id number] cough: care instructions Not available 07/02/2022 14:59:31 [...] Details Recorded Time Chronic obstructive pulmonary disease 92507545 Active 2021 LINO Pagan [facility] 14:28:17 Hypertensive disorder 30854864 Active 2021 LINO Pagan [facility] 14:35:25 Hyperlipidemia 36813926 Active 2021 JACKELYN PÉREZCECINadine grover, [place] - [facility] 2 14:35:44 Restless legs 47205739 Active 2021 [facility]N [facility], [facility] - [facility] [...] Last Updated DateTime 160.02 cm 28.9 kg/m2 68885.5 6 g 88 % 88 % 24 [...] Tobacco Smoking Status Former Smoker JACKELYN PÉREZCECINadine grover, [place] - [facility] 07/02/2022 14:36:26 When Did You Quit Smoking? 16+yearssinc elastcigaret te Information not available 07/02/2022 Have You Recently Traveled Abroad? No Information not available 07/02/2022 Sex: Unknown Functional Status Question Answer Note LastModified by Organizat ion Details LastModified Time Do you use any illicit or recreational drugs? No Information not available 07/02/2022 Do you or have you ever used any other forms of tobacco or nicotine? No Information not available 07/02/2022 What is your level of alcohol consumption? None Information not available 07/02/2022 Mental Status None recorded. Family History Relationship [...] 30 mcg/0.3 mL dose 07/07/2021 completed JACKELYN grover, [place] - [facility] 07/02/2022 14:24:48 Influenza, high-dose, quadrivalent, PF 06/13/2022 completed JACKELYN MORA null, [place] - [facility] 07/02/2022 14:24:48 Past Encounters Encounter ID Performer Location Encounter Start Date Encounter Closed Date Diagnosis/Indication Diagnosis SNOMED-CT Code Diagnosis ICD10 Code Diagnosis Note [id number] [place] [address] 07/16/2019 10:19:21 07/16/2019 12:01:17 [id number] [address] [place] [address] 01/10/2021 16:37:47 01/10/2021 17:35:59 [id number] [facility]O [facility] [address] [place] [address] 07/02/2022 13:20:27 07/02/2022 15:14:04 Acute exacerbation of chronic obstructive pulmonary disease 277144020 J44.1 Health Concerns Section Related Observation LastModified by Organization Detai ls LastModified Time None Recorded Concern Status LastModified by Organization Details LastModified Time None Recorded Advance Directives Directive None Recorded Payers Insurance Date Sequence Insurance Name Policy Number Policy Urena Covered Member ID Urena Member ID Guarantor Name 08/20/2022 1 [facility] [id number] Tanya Joya [id number] Tanya Joya Notes Date Note Type Note Provider Name and Address Organization Details Recorded Time 2 text/html CoughReported bypatient.source of patient informationInformation obtained from patient; Patient arrived at Urgent Care ambulatory Quality:productive cough; symptoms worse with lying down Severity:worsening; severe Duration:6 days Timing:worsening; gradual Context:pt has h/o COPD and uses oxygen therapy intermittent at home as needed. [facility] this morning were empty when she went to use one. she is having productive cough with discolored mucus. denies fevers. Associated Symptoms:no fever;wheezing LINO Simon [address] [place], [address], [place] - [facility] 07/02/2022 15:09:16 OBGyn Episode No OBEpisode recorded.
== END 2024-12-13 10:52 | disposition home or self-care (01) ==
LOC: HO.HPS 10:11
PROVIDERS: PCP Internal Medicine; Visit Provider Hospitalist
DX: J43.2 Centrilobular emphysema (principal); J96.11 Chronic respiratory failure with hypoxia; R05.3 Chronic cough; I27.20 Pulmonary hypertension, unspecified; J90 Pleural effusion, not elsewhere classified; R91.1 Solitary pulmonary nodule
CPT/HCPCS: 99214; G2211

== ENCOUNTER → 2024-12-13 10:11 | Outpatient (BNVA) | payer OTHER, SELFPAY | PROVIDERS: PCP Internal Medicine; Visit Provider Hospitalist | DX: J43.2 Centrilobular emphysema (principal); J96.11 Chronic respiratory failure with hypoxia; R05.3 Chronic cough; I27.20 Pulmonary hypertension, unspecified; J90 Pleural effusion, not elsewhere classified; R91.1 Solitary pulmonary nodule | CPT/HCPCS: 99212 ==

== ENCOUNTER 2025-03-22 14:00 | Outpatient (AMB) | payer OTHER, SELFPAY ==
--- NOTE | 2025-03-22 14:24 | MHC.OFFVIS ---
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 Required: No Accompanied by: Self / Same As Patient Allergies No Known Allergies Allergy (Verified 03/22/25 14:30) Medication List - Last Reconciled 03/22/25 by Donny Ward NP acetaminophen 1,000 mg (2 x 500 mg) PO TID PRN albuterol sulfate 90 mcg/actuation 1 puff inhalation Q4H PRN albuterol sulfate 2.5 mg inhalation Q6H PRN alprazolam 0.25 mg PO DAILY PRN apixaban (Eliquis) 5 mg PO BID ascorbic acid (vitamin C) (Vitamin C) 500 mg PO DAILY azelastine 1 spray intranasal BID biotin (Hair, Skin and Nails (biotin)) 10,000 mcg PO DAILY citalopram 40 mg PO DAILY digoxin 0.125 mg See Protocol PO DAILY diltiazem HCl CD 240 mg PO DAILY ensifentrine 2.5 mL inhalation BID famotidine 20 mg PO BEDTIME PRN ferrous sulfate 325 mg PO DAILY fluticasone propionate 50 mcg/actuation (Flonase Allergy Relief) 50 mcg intranasal DAILY PRN fredrszkqdj-eyvkotedm-bdqvflbu 100-62.5-25 mcg (Trelegy Ellipta) 1 inh PO DAILY furosemide 20 mg PO ONCE gabapentin 300 mg PO BEDTIME ipratropium bromide 2 sprays intranasal QID mecobalamin (vitamin B12) 1,000 mcg PO DAILY montelukast 10 mg PO BEDTIME mupirocin 2% 1 appl topical TID PRN nebulizers As directed Oxygen Home Use As directed pravastatin 40 mg PO DAILY psyllium husk (Metamucil) 0.4 grams PO DAILY ropinirole 0.5 mg PO BEDTIME trazodone 50 mg PO BEDTIME PRN trazodone 50 mg PO BEDTIME PRN turmeric root extract 500 mg PO DAILY HPI Comments Details: This is a 84-year-old female patient coming in for a follow-up visit, accompanied by her daughter. Patient with a history of paroxysmal AFib, COPD on continuous 2 L O2 supplement, pulmonary hypertension, mitral and aortic valve calcification. Previously patient was in the hospital for ABLA for which patient received blood transfusions. Patient is well with GI and Hematology and this matter. With a stable H&H, patient continues to be on Eliquis therapy. Denies any signs of bleeding or falls. Patient is otherwise reporting feeling well overall without any cardiac symptoms of exertional chest pain, shortness of breath, palpitations, dizziness, orthopnea, PND, leg edema, presyncope or syncope. Patient is reporting compliance with all her medications. Patient notes that she recently got flu vaccine and is reacting a little bit to it. [facility] Medical History PAF (paroxysmal atrial fibrillation) Atrial fibrillation Atrial fibrillation with rapid ventricular response COPD (chronic obstructive pulmonary disease) Lung nodule Pleural effusion Pulmonary hypertension Mitral annular calcification Aortic valve calcification Cough Sinusitis Chronic respiratory failure Pneumonia Surgical History No pertinent past surgical history Family History Brother Myocardial infarction Father Stroke Maternal Grandmother Bone cancer Social History Household Members: Children Household Members Other:: Daughter and family Housing: House Are you a primary adult daycare coordinator to a significant other at home: No Do you presently have visiting nurse or other home services: No Alcohol intake: never Patient Tobacco Use Status: Former Tobacco user Tobacco use type: Cigarette e-Cigarette/Vaping Use: Never Used Second Hand Smoke Exposure: No Advance Directives Date on File: 06/21/23 service: No Current occupational status: retired Review of Systems Const Denies daytime sleepiness, Denies difficulty sleeping, Denies snoring, Denies stops breathing during sleep and Denies weakness Card Denies chest pain, Denies rapid heart rate, Denies irregular heart rhythm, Denies claudication, Denies leg edema, Reports lightheadedness, Reports palpitations, Reports dyspnea, Denies dyspnea on exertion, Denies orthopnea, Denies paroxysmal nocturnal dyspnea and Denies slow heart rate Resp Denies cough, Reports dyspnea, Denies dyspnea on exertion and Denies snoring GI Reports no additional complaints, Denies hematochezia, Denies change in stool character and Denies dyspepsia Musc Denies abnormal gait, Denies muscle weakness and Denies numbness Neuro Denies abnormal gait, Denies numbness and Denies weakness Endo Reports palpitations Physical Exam Vital Signs: Last Vital Signs Pulse 65 03/22/25 14:25 BP 124/52 L 03/22/25 14:25 BMI result Body Mass Index 28.9 Const General: cooperative, healthy appearing, comfortable and no acute distress Orientation/consciousness: patient oriented x3 HEENT Head: Yes normal to inspection Neck Neck: Yes normal visual inspection, Yes trachea midline and Yes supple Chest Chest palpation & inspection: normal inspection of the chest Resp Other: On chronic 2 L supplemental oxygen Effort & Inspection: normal respiratory effort Auscultation: clear to auscultation bilaterally, no crackles, no rales, no rhonchi and no wheezes Cardio Jugular venous distension: no JVD Palpation: normal PMI Rate: regular rate Rhythm: regular rhythm Heart sounds: S1 normal heart sound present, S2 normal heart sound present, no click, no gallops, no murmurs and no rubs Peripheral pulses: Peripheral pulses 2+ throughout GI Inspection: Yes normal to inspection Palpation (GI): Soft to palpation Auscultation: normal bowel sounds Skin General skin exam: no rashes or lesions noted Neuro General: patient oriented x3 Extrem General: Yes normal to inspection, No no pedal edema and No calf tenderness Psych Appearance: grossly normal Mental Status: mental status grossly normal Speech and movement: Normal speech and movement present Office Procedures EKG Details: EKG today showed sinus rhythm with questionable junctional beats, rate 65 beats per minute, nonspecific T-wave abnormality, [place], [place]. [id number], Complete Assessment & Plan Assessment & Plan (1) PAF (paroxysmal atrial fibrillation): Code(s): I48.0 - Paroxysmal atrial fibrillation Category: Medical Plan: Patient previously on amiodarone but she started having AV dissociation therefore was discontinued. Continue with diltiazem and digoxin therapy for rate approach therapy. Patient's H&H has been stable and therefore continue Eliquis therapy for full anticoagulation. Previously due to questions about GI bleed, we would discuss Watchman device. Not indicated at this time. Patient will repeat her blood work in the next 2 weeks. Patient denies any signs of bleeding or falls. (2) Diastolic dysfunction: Code(s): I51.89 - Other ill-defined heart diseases Category: Medical Plan: 09/13/2024-echo study showed normal EF 56%, moderate calcification of the aortic valve, mild mitral annular calcification, and [id number] pulmonary hypertension. Clinically euvolemic. Continue Lasix therapy. Patient takes an extra tablet as needed for leg swelling or weight gain. Advised heart healthy diet, low-salt diet, fluid restriction at 2 L daily, and daily weight monitoring. (3) Pulmonary hypertension: Code(s): I27.20 - Pulmonary hypertension, unspecified Category: Medical Plan: As above. Continue oxygen therapy. Followed by pulmonology. (4) Anemia: Code(s): D64.9 - Anemia, unspecified Category: Medical Plan: Following Gastroenterology and Hematology. Advised heart healthy diet, regular exercise as tolerated, med compliance, and management of vascular risk factors. Follow up in 6 months. In the interim, patient will call the office with any concerns or change in symptoms. This note was generated using voice recognition software. While every effort has been made to ensure accuracy and proper punch press operator, there may be occasional errors that could affect the content or meaning of the described symptoms. Orders: Orders AMB EKG-In Office Today I48.0 - Paroxysmal atrial fibrillation Coding Level of Care Code Est Pt Level 4 (46442) Complex EM visit Add On G2211 Diagnoses PAF (paroxysmal atrial fibrillation) I48.0 Diastolic dysfunction I51.89 Pulmonary hypertension I27.20 Anemia D64.9 CPT Codes EKG - CPT: 87842-[id number], Complete ([id number]) Time Spent (min) 32 Comment Time spent in reviewing the chart, test results, assessment, counseling and documentation.
[2025-03-22 14:25] VITALS: BP 124/52; PULSE 65; BMI 28.9
--- OUTSIDE RECORDS SUMMARY | 2025-03-22 16:01 | XMS_ITS | Clinical Summary ---
Author Organization [facility] Address [address] [place] [address] Care Team Providers Care Sand Screener Operator Name Role Phone Lizandro Gibbs MD Primary Care Provider [phone] Medical History Medical History Date Comments Essential hypertension DX:Essent ial hypertension Hyperlipidemia DX:Hyperlipidemi a COPD (chronic obstructive pu lmonary disease) (CMS/HCC V24, CMS/HCC V28) DX:COPD (chronic o bstructive pulmonary disease) ([facility]) Depression DX:Depression Restless leg syndrome DX:Restles s leg syndrome Chronic respiratory failure with hypoxia (CMS/HCC V24, CMS/HCC V28) DX:Chronic respiratory fail ure with hypoxia ([facility]) Acute and chronic respirator y failure with hypoxia (CMS/HCC V24, CMS/HCC V28) DX:Acute and c hronic respiratory failure with hypoxia ([facility]) Hyponatremia DX:Hyponatremia Depression DX:Depression Family History [...] series) 2017 Cholesterol Screening (Lipid Panel) 06/13/2022 Falls Risk Assessment 06/13/2022 Osteoporosis Screening (Bone Density Screening) 06/13/2022 Social Influencers of Health Screening 06/13/2022 Hypertension/CHF/CAD Annual BMP Blood Test 06/20/2022 Depression Screening 07/05/2024 COVID-19 Vaccine (1 - 2023-2 5 season) 2025 Influenza Vaccine (#1) 2025 04/06/2017 HIB Vaccines Aged Out No longer [...] Documents on File Type Date Recorded Patient Seismograph Chief Expl anation Health Care Decision (hx) 10/07/2023 AD HEWITT DIRECTIVE Health Care Decision (hx) 10/07/2023 AD HEWITT DIRECTIVE Care Teams Sand Screener Operator Relationship Specialty Start Date End Date Lizandro Gibbs MD PCP - General Internal Medicine 04/20/12
== END 2025-03-22 15:12 | disposition home or self-care (01) ==
LOC: HO.HCS 14:01
PROVIDERS: PCP Internal Medicine
DX: I48.0 Paroxysmal atrial fibrillation (principal); I51.89 Other ill-defined heart diseases; I27.20 Pulmonary hypertension, unspecified; D64.9 Anemia, unspecified
CPT/HCPCS: 93010; 99214; G2211

== ENCOUNTER → 2025-03-22 14:00 | Outpatient (BNVA) | payer OTHER, SELFPAY | PROVIDERS: PCP Internal Medicine | DX: I48.0 Paroxysmal atrial fibrillation (principal); I51.89 Other ill-defined heart diseases; I27.20 Pulmonary hypertension, unspecified; D64.9 Anemia, unspecified; R94.31 Abnormal electrocardiogram [ECG] [EKG] | CPT/HCPCS: 93005; 99212 ==

== ENCOUNTER 2025-04-13 14:18 | Outpatient (AMB) | payer OTHER, SELFPAY ==
--- NOTE | 2025-04-13 14:19 | MHC.OFFVIS ---
Vital Signs 04/13/25 14:24 Height 5 ft 3 in Weight 164 lb 3.91 oz BMI 29.1 BP 134/50 L Blood Pressure Location Rt brachial Position Sitting Pulse 65 Pulse Source Pulse Oximeter Pulse Oximetry (%) 97 Oxygen Delivery Method Nasal Cannula Oxygen Flow Rate 2 Intake Visit Reasons: COPD Refrigeration Brazer/Solderer Required: No Accompanied by: Daughter Allergies No Known Allergies Allergy (Verified 04/13/25 14:25) HPI Comments Details: The patient is a 84 -year-old woman with known COPD also chronic respiratory failure on oxygen. Apparently she was in usual state health until recently her became sick with RSV and was admitted to the [facility]. For the last couple weeks she has had worsening respiratory symptoms. She has been evaluated twice by her primary care doctor. She has been given antibiotics and prednisone. However, she continues to worsen. Today she has been using 4 L pulse on her oxygen device. She is using a mask and she was noted to be 88%. However, the patient is not activating the oxygen based on the fact that she her nasal passages are congested and she is breathing through her mouth. Therefore I switched her oxygen to continues 2 L and she maintain a pulse ox of 92%. I explained to the patient that she is to avoid using the conserving device valve at this time. The patient was provided additional antibiotics and prednisone. If she is no better in 24-48 hours. she has to go to the hospital. However, if she worsens she also she go the hospital. ??? 08/04/2022 the patient is here for a sick visit. Apparently she has been having issues with heart. She was admitted briefly at [facility] and then here [facility] found to have AFib with rapid ventricular response. She was placed on Eliquis and ultimately had her calcium channel sary increase for rate control. The patient has been having worsening cough however. Her cough is persistent and moderate to severe. At times is productive of yellow phlegm. Having hard time sleeping because of the cough. She has tried multiple vkzo-jld-zxnlrxk remedies without any significant improvement. On examination seems like she has a good amount of purulent secretions that are coming down her posterior pharynx suggesting a component of sinusitis. the patient also had chest x-rays while being in the hospital July demonstrating some degree of atelectasis and minimal pleural effusion. We talked about her medications including lisinopril that is likely not helping with her cough. Although as part of the primary cause of the cough. At this point based on the severity of the cough will be reasonable to switch her to an ARB. 09/22/2022 the patient is here for pulmonary follow-up visit. She is finally feeling better. The cough significantly better. She still has a productive cough and brings up phlegm. We did talk about performing CPT with flutter valve. She does have 1 available and she can use it twice a day. Explained to her that she is always going to bring up some phlegm. At this time the azithromycin 3 times a week seems to be helpful. Coming off the lisinopril is also helpful. The Trelegy inhaler she is using once a day with good effect. Sometimes it makes her cough. I did instruct her to she is taking little softer so she does not irritate too much to the upper airway. The AFib seems to be in good control. We did review her x-ray from July 10 with demonstrating some minimal atelectasis and scoliosis. And at this point will plan to follow-up in 4 months. If the patient has any difficulties prior to that she is to call the office for an earlier evaluation. 11/19/2022 the patient is here for a pulmonary follow-up visit. The patient is feeling better. Her Wilfred inhibitor was stopped and her cough is improved. Although she still has a little productive phlegm. It does bother her. Does not seen significant improvement with the azithromycin. Will go ahead and stop it. I did request a sputum culture will try couple weeks of doxycycline to see if we can clear any significant mucus. Recently she did have a CT scan of the chest done beginning of November 2022 in a personally reviewed it. She does have some moderate degree amount of emphysema and also scoliosis. She also has atelectasis primarily in the left hemithorax there is a segment that appears to be nearly completely obstructed. If the patient continues symptomatic consider bronchoscopy to assess that airway to make sure there was no endobronchial blockage. But at this point clinically the patient is better overall and will try to minimize any semi invasive procedures. Will reassess in a few months. 01/20/2023 the patient is here for pulmonary follow-up visit. Overall the patient is feeling better. She did complete the antibiotics and the chest physical therapy. She continues to have dyspnea on exertion. She also has some fluid overload issues. Her x-ray she had back in July she did have small pleural effusions as well. The patient will benefit from additional diuresis specially with pulmonary hypertension. Holding off on any invasive or semi-invasive diagnostic interventions at this time. She continues use the oxygen with good effect. She continues use her respiratory therapy as well. Will go ahead and prescribe Lasix that she can use for 3-5 days and will monitor closely her weight and her lower extremity edema. If the patient continues use the diuretics she will need to have blood work to monitor her electrolytes and kidney function. 04/29/2023 the patient is here for sick visit. The patient apparently was in his usual state health until sometime in the beginning of April when she started developing worsening respiratory symptoms. The patient was brought to the [facility] ER where she was evaluated. She was admitted to the hospital with COPD exacerbation. She was treated with steroids antibiotics and also respiratory treatments. The patient was able to be discharged. However, she states that upon discharge her cough got worse. She started developing worse chest congestion and also sinus congestion. Moderate severity. She is been using her oxygen more and had to increase the dose. She is been having hard time. She has been on prednisone tapering down currently on 20 mg. on exam she is very rhonchorous with a prolonged expiratory phase and wheezing. She was given a Xopenex and hypertonic saline nebulizer treatment in a sputum culture was able to be sent to the laboratory. In the meantime the patient appears to have a postviral bacterial infection in the lower respiratory now so likely the upper respiratory tract. Therefore, will start her on broad-spectrum antibiotics and will also extend her prednisone use. If the patient is no better she will come in for an x-ray and she will call the office. However, if her symptoms worsen she may need to go back to the ER. 05/13/2023 the patient is here for pulmonary follow-up visit. She is no better. She is having still significant cough. Productive in nature. Has a hard time sleeping because of the cough. Moderate severity. Feels is more over sinuses now. She does have Afrin nasal spray that she can use to 5 days. She did complete the prednisone. She also completed the Vantin. Based on the fact that she is still very congested will go ahead and start her on levofloxacin. The patient can start his low-dose prednisone as well to try to help with the inflammation. And will follow-up with her after her CT scan. The patient develops any worsening symptoms she can always call and we can consider bronchoscopy. She is also complaining of some pleuritic chest discomfort. Currently better. I did advise that if her discomfort returns or if it worsens that she should go to the ER for further evaluation. 07/22/2023 the patient has a telehealth visit today. Her family sick with COVID she does not have COVID as of yet but taking precautions. She is still complaining of productive cough. Her cough is yellowish and green in color. Moderate severity. Sometimes she gets anxious because of the burden of mucus. We did start him on Augmentin but has not seen any significant improvement after several days. She has not finding that she is wheezing at this time. Therefore will hold off on any prednisone. She did respond better to Levaquin in the past. She may have an enteric resistant organism. We did request a sputum culture but she was not able to perform just yet. Will go ahead and switch her again to Levaquin to see if she can feel better. If not will definitely have to get a sputum culture. We did review her recent CT scan of the chest that she had demonstrating interval improvement in the left upper lobe pulmonary nodule going from 9 mm spiculated to now 4.8 mm nodule. This is very reassuring. She does have a new density in the left lower lobe which is not too concerning likely some degree of atelectasis but is definitely new will need follow-up. The patient will return in a couple months to see how her progresses and otherwise will call sooner if her symptoms are not any better. 09/23/2023 the patient is here for hospital follow-up visit. She was recently hospitalized with chest pain and shortness of breath. She was found to have atrial fibrillation with rapid ventricular response. She was placed on amiodarone. The patient did have a chest x-ray done demonstrating hyperinflated lungs and also a question of a broken lead. She will follow-up with cardiology for that. In the meantime she has been on the conserving device tank. Although does not always breathe through her nose and is not enough oxygen. She was found to be hypoxic on arrival. She was down to the mid 80s on 3-4 L pulse. Therefore she was ambulated and the patient needs to be on continues oxygen. Will go ahead and let her [employer] company known to provide her with oxygen times with a regular valve so she can use 2 L at rest and 3 L with activity to maintain a pulse ox above 90%. She continues with respiratory therapy. The patient does have a productive cough. Unfortunately we can not place her on macrolide therapy because she is on amiodarone. Therefore will start her on doxycycline daily as a prophylactic dose to see if we can treat her chronic bronchitis. Will follow-up in 6-8 weeks. 02/03/2024 the patient is here for a pulmonary follow-up visit. Overall she is feeling a lot better. She has been on the Lasix with good response. Her lower extremity edema still there. Is causing some soreness. She had been on 240 mg of potassium that was decreased down to 180. indeed he still can be related to the calcium channel blockers. I will make note of it and let her home health care worker note to consider switching her to a beta-sary as this should be okay from a pulmonary standpoint. In the meantime she is going to continue with diuresis. She knows to weigh herself daily and if she gains more than 2 lb in 24 hours she has to take additional diuretics. The patient also needs to monitor closely her electrolytes. From a respiratory status she does continue to use the oxygen with good effect. She does use it 24 hours a day. Her last chest x-ray did demonstrate some heart failure. This is back in September. I do not appreciate any crackles at this time. Therefore do believe her volume status is much better. Will go ahead and repeat her chest x-ray prior to her next follow-up visit in 3-4 months. If the patient develops any worsening symptoms prior to that she will call for an earlier assessment. In addition to that she is complaining about some insomnia. She has been using Benadryl at nighttime. I will give her prescription for trazodone that she can start to see if this can provide some relief without using Benadryl that can result in other adverse effects. 06/09/2024 the patient is here for a pulmonary follow-up visit. The patient overall is doing okay. She continues with respiratory medicine. She does use her oxygen 24 hours a day. We did take her off the oxygen see how she did at rest off the oxygen and her oxygen was between 88-91%. Therefore she is able to take off her oxygen under supervision and with deep breathing she can keep her oxygen around 90-91%. She can take breaks to allow knows to rest. She also has a Ventimask and she can use at times. She did go to the hospital with significant malaise and pain. She was found to have shingles. She did have a chest x-ray which I review demonstrating some slight vascular congestion some Uziel B lines. In addition to that she had blood work done including an elevated CRP likely from the infection. 08/14/2024 the patient is here for a pulmonary follow-up visit. The patient has been having worsening cough chest congestion. Sometimes she chokes up with her own secretions. She had call the office when we sent her a Z-Jarvis in addition to some prednisone. Although she has not seen significant improvement. Positive sick contacts in the family. Therefore will start her on Augmentin. If the patient is able to produce a sputum for culture I did give her a cup with a script in order to get 1 done. She will continue with the current respiratory therapy will provide her with some cough medicine. If the patient is no better worsens she will call or go to the ER. 12/13/2024 the patient is here for pulmonary follow-up visit. Overall she is doing fairly good. The patient still complains of productive cough chest congestion. Still having some difficulty breathing. The oxygen has been helpful. Her inhalers and her respiratory therapy also has been partially helpful. She has not gone to the ER in a few months now which is reassuring. The last time she did have dispatch see at her house and that worked out well. They will consider that service in the future. In the meantime we did talk about her chest congestion and chronic bronchitis. Which can try her on Ohtuvayre nebulizer therapy. Will try to get that approved through her her insurance company. In addition to that she is having some difficulty with sleep. Her sleep-wake cycle is been off. Will start her back on trazodone to help her with that. 04/13/2025 the patient is here for pulmonary follow-up visit. Her breathing is otherwise okay. She is responding well to the Ohtuvayre nebulizer therapy. She also continues with her inhalers as prescribed. Although her major complaint is a nasal blockage. Back many years ago she did have issues with epistaxis and she has significant amount of cautery to her nose. This may have resulted in some strictures. She is going to follow-up with ENT soon. She has a hard time with the oxygen because her nose is so stuffy. Will go ahead and try Afrin x3 5 days to help her with her symptoms. She understands that she can not use this for longer than that since it can result in rebound symptoms. She can also try small dose of Sudafed. As long as her blood pressure can not tolerate it she can use it as needed for some relief. Respiratory nevarez the patient is doing well. The family is wondering about a portable oxygen concentrator. But the issue is that with the nasal congestion she has a hard time actually triggering the POC at this time so she will continue on continuous gas. [facility] Medical History (Updated 04/16/25 @ 19:54 by Stan Brito MD) Chronic rhinitis PAF (paroxysmal atrial fibrillation) Atrial fibrillation Atrial fibrillation with rapid ventricular response COPD (chronic obstructive pulmonary disease) Lung nodule Pleural effusion Pulmonary hypertension Mitral annular calcification Aortic valve calcification Cough Sinusitis Chronic respiratory failure Pneumonia Surgical History No pertinent past surgical history Family History Brother Myocardial infarction Father Stroke Maternal Grandmother Bone cancer Social History Household Members: Children Household Members Other:: Daughter and family Housing: House Are you a primary health care marketing manager to a significant other at home: No Do you presently have visiting nurse or other home services: No Alcohol intake: never Patient Tobacco Use Status: Former Tobacco user Tobacco use type: Cigarette e-Cigarette/Vaping Use: Never Used Second Hand Smoke Exposure: No Advance Directives Date on File: 06/21/23 service: No Current occupational status: retired Review of Systems Const Reports difficulty sleeping, Denies fever(s) and Denies night sweats ENT Denies change in voice, Reports nasal congestion, Reports nasal discharge, Reports nasal obstruction and Reports post nasal drip Card Denies chest pain, Reports leg edema and Reports dyspnea on exertion Resp Reports chest congestion, Reports cough, Denies hemoptysis, Reports excessive phlegm production and Reports dyspnea on exertion GI Denies abdominal pain Musc Denies no additional complaints Neuro Denies Neuro-related abnormal movements Psych Denies no additional complaints Celestine/Lymph Denies easy bleeding and Denies lymphadenopathy Physical Exam Vital Signs: Last Vital Signs Pulse 65 04/13/25 14:24 BP 134/50 L 04/13/25 14:24 Pulse Ox 97 04/13/25 14:24 Oxygen Delivery Method Nasal Cannula 04/13/25 14:24 Oxygen Flow Rate 2 04/13/25 14:24 BMI result Body Mass Index 29.1 Const General: alert Orientation/consciousness: patient oriented x3 Neck Neck: Yes normal visual inspection, Yes full ROM, Yes no lymphadenopathy and Yes supple Chest Chest palpation & inspection: normal inspection of the chest Resp Effort & Inspection: normal respiratory effort Auscultation: no rales, no rhonchi, no wheezes and diminished lung sounds Cardio Rate: regular rate Rhythm: regular rhythm Heart sounds: S1 normal heart sound present and S2 normal heart sound present GI Palpation (GI): Soft to palpation and nontender Auscultation: normal bowel sounds Skin General skin exam: no rashes or lesions noted Neuro General: patient oriented x3 Extrem General: No clubbing, No cyanosis and Yes edema Assessment & Plan Assessment & Plan (1) COPD (chronic obstructive pulmonary disease): Code(s): J44.9 - Chronic obstructive pulmonary disease, unspecified Category: Medical Qualifiers: COPD type: emphysema Emphysema type: centrilobular Qualified Code(s): J43.2 - Centrilobular emphysema (2) Chronic respiratory failure: Code(s): J96.10 - Chronic respiratory failure, unspecified whether with hypoxia or hypercapnia Category: Medical Qualifiers: Respiratory failure complication: hypoxia Qualified Code(s): J96.11 - Chronic respiratory failure with hypoxia (3) Cough: Code(s): R05.9 - Cough, unspecified Category: Medical Qualifiers: Cough type: chronic Qualified Code(s): R05.3 - Chronic cough (4) Pulmonary hypertension: Code(s): I27.20 - Pulmonary hypertension, unspecified Category: Medical (5) Pleural effusion: Code(s): J90 - Pleural effusion, not elsewhere classified Category: Medical (6) Lung nodule: Code(s): R91.1 - Solitary pulmonary nodule Category: Medical (7) Chronic rhinitis: Code(s): J31.0 - Chronic rhinitis Category: Medical Plan cough medicines oxygen supplementation 2L/min at rest and 3 liters/min with activity Trazodone for sleep Trelegy daily short-acting beta agonist as needed Ohtuvayre BID Nasal saline at night Afrin x 5 days Low dose pseudophed as needed diuresis as tolerated, daily weights. F/U 3-4 months Medications: New pseudoephedrine HCl DNExceed 4 doses/24h 30 mg PO Q12H PRN 60 tabs 1RF nasal congestion 30 days oxymetazoline 0.05% (Afrin (oxymetazoline)) 2 sprays intranasal Q12H PRN 22 mL 0RF nasal congestion 5 days Coding Level of Care Code Est Pt Level 4 (14176) Complex EM visit Add On G2211 Diagnoses Centrilobular emphysema J43.2 COPD type: emphysema Emphysema type: centrilobular Chronic respiratory failure with hypoxia J96.11 Respiratory failure complication: hypoxia Chronic cough R05.3 Cough type: chronic Pulmonary hypertension I27.20 Pleural effusion J90 Lung nodule R91.1 Chronic rhinitis J31.0 Time Spent (min) 17
[2025-04-13 14:24] VITALS: BP 134/50; PULSE 65; O2SAT 97; BMI 29.1
== END 2025-04-13 14:55 | disposition home or self-care (01) ==
LOC: HO.HPS 14:18
PROVIDERS: PCP Internal Medicine; Visit Provider Hospitalist
DX: J43.2 Centrilobular emphysema (principal); J96.11 Chronic respiratory failure with hypoxia; R05.3 Chronic cough; I27.20 Pulmonary hypertension, unspecified; J90 Pleural effusion, not elsewhere classified; R91.1 Solitary pulmonary nodule; J31.0 Chronic rhinitis
CPT/HCPCS: 99214; G2211

== ENCOUNTER 2025-04-13 14:18 | Outpatient (REF) | payer OTHER, SELFPAY ==
[2025-04-13 15:09] LABS: MANUAL DIFF FLAG NO
[2025-04-13 15:26] LABS: Hematocrit 27.7 % (37.0-47.0); Hemoglobin 7.8 g/dl (12.0-16.0); Imm Gran Abs Auto 0.03 X10*3/uL (0.00-0.03); Imm Gran Pct Auto 0.4 % (0.0-0.4); Lymphocytes Absolute Auto 1.5 X10*3/uL (1.2-4.9); Mean Corpuscular HGB Conc 28.2 g/dl (31.0-35.0); Mean Corpuscular Hemoglobin 22.2 pg (27.0-33.0); Mean Corpuscular Volume 78.9 fL (80.0-98.0); NRBC Abs Auto 0.000 X10*3/uL (0.0-0.012); NRBC Pct Auto 0.0 /100WBC (0.0-0.2); Platelet Count 589 X10*3/uL (160-400); Red Blood Count 3.51 X10*6/uL (4.20-5.50); White Blood Count 7.7 X10*3/uL (4.8-10.8)
[2025-04-13 17:20] LABS: Alanine Aminotransferase 6 U/L (0-31); Albumin Level 3.8 g/dL (3.5-5.0); Alkaline Phosphatase 103 U/L (39-117); Anion Gap 12 (12-20); Aspartate Amino Transferase 16 U/L (5-31); Blood Urea Nitrogen 10 mg/dL (9-16); Calcium 8.8 mg/dL (8.4-10.2); Carbon Dioxide 34 mmol/L (22-29); Chloride 98 mmol/L (96-108); Estimated Glomerular Filt Rate > 60; Potassium 3.7 mmol/L (3.3-5.1); Sodium 140 mmol/L (135-145); Total Protein 7.4 g/dL (6.5-8.0)
[2025-04-13 17:25] LABS: Ferritin 6 ng/mL (10-250)
== END 2025-04-13 14:19 | disposition home or self-care (01) ==
LOC: HO.LAB 14:18
PROVIDERS: Absent Provider Internal Medicine Medical Oncology; PCP Internal Medicine; Visit Provider Hospitalist
DX: J43.2 Centrilobular emphysema (principal); J96.11 Chronic respiratory failure with hypoxia; R05.3 Chronic cough; I27.20 Pulmonary hypertension, unspecified; J90 Pleural effusion, not elsewhere classified; R91.1 Solitary pulmonary nodule; J31.0 Chronic rhinitis; Z87.891 Personal history of nicotine dependence; Z99.81 Dependence on supplemental oxygen
CPT/HCPCS: 36415; 80053; 82728; 85025; 99212

== ENCOUNTER 2025-04-26 12:47 | Outpatient (REF) | payer OTHER, SELFPAY ==
[2025-04-26 14:49] LABS: Hematocrit 25.7 % (37.0-47.0); Hemoglobin 7.3 g/dl (12.0-16.0); Mean Corpuscular HGB Conc 28.4 g/dl (31.0-35.0); Mean Corpuscular Hemoglobin 21.4 pg (27.0-33.0); Mean Corpuscular Volume 75.4 fL (80.0-98.0); NRBC Abs Auto 0.000 X10*3/uL (0.0-0.012); NRBC Pct Auto 0.0 /100WBC (0.0-0.2); Platelet Count 535 X10*3/uL (160-400); Red Blood Count 3.41 X10*6/uL (4.20-5.50); White Blood Count 9.9 X10*3/uL (4.8-10.8)
[2025-04-26 15:27] LABS: Ferritin 5 ng/mL (10-250)
--- OUTSIDE RECORDS SUMMARY | 2025-04-26 17:55 | XMS_ITS | Data Portability ---
Author Organization LINO [facility]hl [facility] [address] Address [address] [place] [address] Care Team Providers Care Advertising Assistant Manager Name Role Phone JOHN HERNANDEZ Primary Care Provider [phone] Assessment No assessment recorded. Plan of Treatment [...] By Organization Details Last Modified Time 07/02/2022 [id number] cough: care instructions Not available 07/02/2022 14:59:31 [...] Details Recorded Time Chronic obstructive pulmonary disease 93563141 Active 2021 [facility] 14:28:17 Hypertensive disorder 87341240 Active 2021 [facility] 12/29/202 2 14:35:25 Hyperlipidemia 15618553 Active 2021 JACKELYN grover, PA - [facility] 2 14:35:44 Restless legs syndrome 02492803 Active 2021 JACKELYN grover, PA - [facility] 14:37:22 Problem Notes None recorded. Procedures Surgical History Date Name Laterality Status Provider Name and Address Organization Details Recorded Time Ankle arthroscopy/ surgery completed JACKELYN MORA PA - [facility] 07/02/2022 14:36:58 Imaging [...] oximetry Inhaled oxygen flow rate Respiratory rate Provider Name and Address Organization Details Last Updated DateTime 2 160.02 cm 28.9 kg/m2 90916.5 6 g 88 % 88 % 24 /min 0 90 /min 96 % 96 % 2 L/min 22 /min JACKELYN MORA PA - [facility] 2 14:30:20 Date Recorded Systolic And Diastolic Provider Name and Address Organization Details Last Updated DateTime 07/02/2022 156/69 mm[Hg] JACKELYN MORA PA - [facility] 07/02/2022 14:27:35 Date Recorded Oxygen saturation Oxygen saturation in Arterial blood by Pulse oximetry Inhaled oxygen flow rate Provider Name and Address Organization Details Last Updated DateTime 07/02/2022 99 % 99 % 2 L/min Trinh Lemus PA - [facility] 07/02/2022 15:02:33 Social History Question Answer Notes LastModified by Organizat ion Details LastModified Time Tobacco Smoking Status Former Smoker JACKELYN MACHNACZ null, PA - [facility] 07/02/2022 14:36:26 When [...] 30 mcg/0.3 mL dose 07/07/2021 completed JACKELYN MACHNACZ null, PA - [facility] 07/02/2022 14:24:48 Influenza, high-dose, quadrivalent, PF 06/13/2022 completed JACKELYN MACHNACZ null, PA - [facility] 07/02/2022 14:24:48 Past Encounters Encounter ID Performer Location Encounter Start Date Encounter Closed Date Diagnosis/Indication Diagnosis SNOMED-CT Code Diagnosis ICD10 Code Diagnosis IMO Codes Diagnosis Note [id number] [address] [place] [address] 07/16/2019 10:19:21 07/16/2019 12:01:17 [id number] [address] [place] [address] 01/10/2021 16:37:47 01/10/2021 17:35:59 [id number] LINO Simon [address] [place] [address] 07/02/2022 13:20:27 07/02/2022 15:14:04 Acute exacerbation of chronic obstructive pulmonary disease 101797036 J44.1 Health Concerns Section Related Observation LastModified by Organization Detai ls LastModified Time None Recorded Concern Status LastModified by Organization Details LastModified Time None Recorded Advance Directives Directive None Recorded Payers Insurance Date Sequence Insurance Name Policy Number Policy Urena Covered Member ID Urena Member ID Guarantor Name 08/20/2022 1 [facility] [id number] Tanya Joya [id number] Tanya Joya Notes Date Note Type Note Provider Name and Address Organization Details Recorded Time 2 text/html CoughReported by PatientHPIFor quality, patient reportsproductive coughbut reportssymptoms worse with lying down. For severity, patient reportsworseningbut reportssevere. For timing, patient reportsworseningbut reportsgradual. For associated symptoms, patient reportswheezingbut reportsno fever. For source of patient information, patient reportsinformation obtained from patientandpatient arrived at urgent care ambulatory. For duration, patient reports6 days. For context, (pt has h/o copd and uses oxygen therapy intermittent at home as needed. states tanks this morning were empty when she went to use one.she is having productive cough with discolored mucus. denies fevers.). LINO Simon [address] [place], [address], [place] - [facility] 07/02/2022 15:09:16 OBGyn Episode No OBEpisode recorded.
--- OUTSIDE RECORDS SUMMARY | 2025-04-26 17:56 | XMS_ITS | Data Portability ---
Author Organization relocality - [employer], [facility] [employer] [facility] Address [address] [place] [address] Care Team Providers Care Bridge Maintainer Name Role Phone HIM CCA OTHER Assessment Encounter Date Assessment Date Assessment LastModified by Organization Details LastModified Time 11/28/2024 11/28/2024 Ms. Joya is a 84 yo F with Chronic Obstructive Pulmonary Disease (COPD), Congestive Heart Failure, Arrhythmias (e.g., Atrial Fibrillation) on [employer] who is calling today about a productive cough. Per patient and medic, has had a productive cough over the last few days. Productive white sputum. No fever or night sweats. Decreased exercise tolerance and going to the bathroom. Sometimes O2 drops to 88%. Normally in the low 90s. No increase in baseline O2 requirement. SOB with movement. Increased lower leg swelling. Takes Lasix 40mg BID, no changes recently. Compliant. Success with prednisone in the past. With the productive cough, normal vitals and history, seems most consistent with viral process possibly now evolved to COPD exacerbation and concurrent PNA. No c/f PE, although not on AC. No chest pain. no concern for ACS. Sounds all infectious. Reasonable for double abx coverage and steroids. Outpatient f/u advised. And all questions were answered. Flu and COVID negative today. Plan: -POC Flu and COVID tests, EKG POC -duonebs -rx for steroid taper, double abx coverage for COPD exacerbation: Z celeste and cefpodoxime - Mag IV, prednisone 60mg with medic and steroid taper, tessalon perles rx ordered Updates: -EKG with reassuring findings, NSR, normal axis, no STEMI -2g magnesium and duoneb to be provided. I provided real -time medical direction via phone for this encounter, and was available for additional phone based assistance as needed. I have reviewed and agree with the Assessment and Plan as documented by the [employer] Pol[employer] Operator. We discussed the diagnostic uncertainty of home visits and the risk associated with this. In this case the patient and I felt this to be an acceptable and reasonable amount of risk given the benefit of avoiding an ED visit. The patient given the opportunity to ask questions. Follow up with primary care was recommended, as needed. Advised if develops CP/severe SOB/turning blue/uncontrolle d n/v/d or black/bloody emesis or stool/ AMS/ syncope/ high fever unresponsive to APAP to call 911- verbalized understanding of instruction. [email or web address] Not available 11/28/2024 11:44:56 01/26/2025 01/26/2025 I provided real -time medical direction via phone for this encounter, and was available for additional phone based assistance as needed. I have reviewed and agree with the Assessment and Plan as documented by the [employer] Polisher Operator. We discussed the diagnostic uncertainty of home visits and the risk associated with this. In this case the patient and I felt this to be an acceptable and reasonable amount of risk given the benefit of avoiding an ED visit. Patient is on Eliquis for A-fib. Her BUN was 11 and creatinine 0.7 on 11/28/2024 so has no history of CKD. Advised we will treat for UTI, but there could be other etiologies to her pain that is beyond the scope of this service to workup so if she has worsening of symptoms she needs to go in immediately and I also advised follow-up with her PCP on Wednesday. The patient / daughter given the opportunity to ask questions. Advised if develops CP/severe SOB/turning blue/severe/ worsening flank or abd pain/uncontrolle d n/v/d or black/bloody emesis or stool/ AMS/ syncope/ hi fever to call 911- verbalized understanding of instruction [email or web address] Not available 01/26/2025 14:36:53 Plan of Treatment Reminders Order Date Submit Date Provider Last Modified By Organization Details Last Modified Time Details Appointments None recorded. Lab urinalysis, dipstick 2024 025 [facility], [address] [place], [id number] 14:39:07 culture, urine 2024 025 [facility] (Centralized Electronic Ordering - All Locations), Patient Can Go To The Location Of Their Choice, [id number] 20:05:39 rapid SARS CoV 2 Ag, QL IA, respiratory specimen 2024 [facility], [address] [place] [address], [id number] 13:08:30 rapid flu (A+B) [address], [id number] 13:08:48 BMP, serum or plasma 2024 [facility], [address] [place] [address], [id number] 13:59:29 Referral None recorded. Procedures None recorded. Surgeries None recorded. Imaging electrocard iogram [address], [address] [place] [address], [id number] 10:58:24 Medication Orders cefpodoxime 200 mg tablet 2024 [facility], [address] [place], [address], 05:01:05 cefpodoxime 200 mg tablet 2024 025 [facility], [address] [place], [address], 05:01:05 Pyridium 200 mg tablet 2024 025 [facility], [address] [place], [address], 5 05:01:30 ipratropium 0.5 mg-albutero l 3 mg (2.5 mg base)/3 mL nebulizatio n soln [facility] [address] [place], [address], 5 10:58:24 prednisone 10 mg tablet 2024 025 [facility], [address] [place], [address], 5 11:00:14 azithromyci n 250 mg tablet 2024 025 [facility], [address] [place], [address], 5 11:00:17 magnesium sulfate 2 gram/100 mL in 0.9 % sodium chl intraven piggyback 2024 025 cfischett i[facility], [address] [place], [address], 5 10:58:24 furosemide 10 mg/mL injection solution 2024 025 cfischett i[facility], [address] [place], [address], 5 10:58:24 prednisone 20 mg tablet 2024 [facility], [address] [place], [address], 5 10:58:24 benzonatate 100 mg capsule 2024 025 [facility], [address] [place], [address], 5 11:00:19 cefpodoxime 200 mg tablet 2024 025 [facility], [address] [place], [address], 5 05:01:05 Patient TargetsNo targets recorded. Patient InstructionsNo instructions recorded. Reason for Referral None Reported. Results Created Date Observation Date Name Description Value Unit Range Abnormal Flag Note LastModifiedBy Organization Detail LastModifiedTime 11/29/19 25 11/28/2024 rapid flu (A+B) Flu negati ve Not Available [facility] [address] [place] [address], [id number] 11/28/2024 10:55:04 11/29/19 25 11/28/2024 rapid SARS CoV 2 Ag, QL IA, respi rator y speci men rapid SARS CoV 2 Ag, QL IA, respiratory specimen negati ve Not Available [facility] [address] [place] [address], [id number] 11/28/2024 10:55:02 01/27/20 25 01/28/2025 URINE CULTU RE, UROLO GY TRELL P urine culture, urology workup Final report abnormal Not Available [facility] ([facility]) [address] [facility], [place], [address], 01/28/2025 14:05:31 01/27/20 25 01/28/2025 URINE CULTU RE, UROLO GY TRELL P result 1 COMMEN T abnormal Enter obact er cloac ae compl ex Some Enter obact erale s may devel op resis tance durin g thera py with third -gene ratio n cepha lospo rins. This resis tance is most commo nly seen with Citro bacte r freun dii compl ex, Enter obact er cloac ae compl ex, and Klebs iella aerog lanie. Oatman salma that initi ally test susce ptibl e may becom e resis tant withi n a few days after initi ation of thera py. Testi ng subse quent isola salma may be warra nted if clini opal indic ated. (CLSI M100- Ed33) Great er than 100,0 00 colon y formi ng units per mL Not Available [facility] ([facility]) [address] [facility], [place], [address], 01/28/2025 14:05:31 01/27/20 25 01/28/2025 URINE CULTU RE, UROLO GY TRELL P antimicrobia l susceptibili ty Commen t S = Susce ptibl e; I = Inter media te; R = Resis tant P = Posit sharon; N = Negat sharon MICS are expre ssed in micro grams per mL Antib iotic RSLT# 1 RSLT# 2 RSLT# 3 RSLT# 4 Amoxi cilli n/Cla vulan ic Acid R Cefep rei S Cefox itin R Cefpo doxim e S Ceftr iaxon e S Cipro floxa tyler S Ertap enem S Genta micin S Levof loxac in S Merop enem S Nitro furan toin S Piper acill in/Ta zobac godinez S Tetra cycli ne S Tobra mycin S Trime thopr im/Flores lfa S Not Available [facility] ([facility]) [address] [facility], [place], [address], 01/28/2025 14:05:31 11/29/19 25 11/28/2024 elect monik diogr am No observ ation record ed. [facility] [address] [place] [address], [id number] 11/28/2024 13:59:12 Result Notes None recorded. Medical Equipment None Reported. Allergies No known drug allergies Medications Name Sig Start Date Stop Date Status Note LastModified by Organization Details LastModified Time metformin 500 mg tablet TAKE 1 TABLET BY MOUTH EVERY DAY WITH A MEAL active Not Available Not Available No t Available prednisone 10 mg tablet Take the prednison e taper as prescribe d: 50mg once x1 daily (5 tablets), 40mg once x 1 daily (4 tablets), 30mg once x1 daily (3 tablets), 20mg once x1 daily (2 tablets), 10mg once x1 daily (1 tablet)15 tablets total active Not Available Not Available No t Available albuterol sulfate 2.5 mg/3 mL (0.083 %) solution for nebulizatio n USE 1 AMPULE IN NEBULIZER EVERY 6 HOURS active Not Available Not Available No t Available citalopram 40 mg tablet TAKE 1 TABLET BY MOUTH EVERY DAY active Not Available Not Available No t Available trazodone 50 mg tablet TAKE 1 TABLET BY MOUTH EVERY DAY AT BEDTIME FOR SLEEP active Not Available Not Available No t Available cefpodoxime 200 mg tablet Take 1 tablet every 12 hours by oral route for 7 days. 02/095 completed Not Available Not Available Not Available azithromyci n 250 mg tablet Take the first dose of 500 mg (tablets) on day 1. Then 250mg (1 tablet) daily on days 2-5, please take with food. active Not Available Not Available No t Available pravastatin 40 mg tablet TAKE 1 TABLET BY MOUTH EVERY DAY AT BEDTIME active Not Available Not Available No t Available diltiazem CD 240 mg capsule,ext ended release 24 hr TAKE 1 CAPSULE BY MOUTH EVERY DAY active Not Available Not Available No t Available prednisone 20 mg tablet TAKE 1 TABLET BY MOUTH EVERY DAY FOR 5 DAYS. active Not Available Not Available No t Available Pyridium 200 mg tablet Take 1 tablet 3 times a day by oral route for 3 days, for pain on urination . 02/05 completed Not Available Not Available Not Available Vitamin C 500 mg chewable tablet TAKE 1 TABLET BY MOUTH EVERY DAY active Not Available Not Available No t Available citalopram 20 mg tablet TAKE 1 AND 1/2 (HALF) TABLETS BY MOUTH EVERY DAY active Not Available Not Available No t Available famotidine 20 mg tablet TAKE 1 TABLET BY MOUTH AT BEDTIME NEEDED active Not Available Not Available No t Available ropinirole 0.25 mg tablet TAKE 1 TABLET BY MOUTH THREE TIMES A DAY active Not Available Not Available No t Available benzonatate 100 mg capsule Take 1 capsule 3 times a day by oral route as needed for 5 days. 2024 active Not Available Not Available Not Avai lable erythromyci n 5 mg/gram (0.5 %) eye ointment APPLY TO LOWER EYELID OF AFFECTED EYE FOUR TIMES A DAY FOR 7 DAYS. active Not Available Not Available No t Available gabapentin 300 mg capsule TAKE 1 CAPSULE BY MOUTH AT BEDTIME active Not Available Not Available No t Available montelukast 10 mg tablet TAKE 1 TABLET BY MOUTH EVERY DAY active Not Available Not Available No t Available codeine 10 mg-guaifene sin 100 mg/5 mL oral liquid TAKE 10 ML BY MOUTH EVERY 6 HOURS NEEDED FOR COUGH FOR 6 DAYS active Not Available Not Available No t Available mupirocin 2 % topical ointment APPLY TOPICALLY TO AFFECTED AREA THREE TIMES A DAY FOR 10 DAYS active Not Available Not Available No t Available digoxin 125 mcg (0.125 mg) tablet TAKE 1 TABLET BY MOUTH EVERY DAY active Not Available Not Available No t Available furosemide 20 mg tablet TAKE 2 TABLETS BY MOUTH TWO TIMES A DAY active Not Available Not Available No t Available azelastine 137 mcg (0.1 %) nasal spray USE 1 SPRAY IN EACH NOSTRIL TWO TIMES A DAY active Not Available Not Available No t Available levofloxaci n 500 mg tablet TAKE 1 TABLET BY MOUTH EVERY DAY active Not Available Not Available No t Available ipratropium bromide 42 mcg (0.06 %) nasal spray USE 2 SPRAYS IN EACH NOSTRIL 3 TIMES A DAY active Not Available Not Available No t Available sodium fluoride 1.1 % dental gel APPLY A THIN FILM TO ALL TEETH BEFORE BED NO EATING OR RINSING FOR 30 MINUTES. active Not Available Not Available No t Available amoxicillin 875 mg-potassiu m clavulanate 125 mg tablet TAKE 1 TABLET BY MOUTH TWO TIMES A DAY FOR 10 DAYS active Not Available Not Available No t Available azithromyci n 500 mg tablet TAKE 1 TABLET EVERY DAY FOR 5 DAYS. active Not Available Not Available No t Available guaifenesin 400 mg tablet Take 1 tablet every 6 hours by oral route for 5 days. 2024 active Not Available Not Available Not Avai lable FeroSul 325 mg (65 mg iron) tablet TAKE 1 TABLET BY MOUTH EVERY DAY active Not Available Not Available No t Available Eliquis 5 mg tablet TAKE 1 TABLET BY MOUTH TWO TIMES A DAY active Not Available Not Available No t Available Trelegy Ellipta 100 mcg-62.5 mcg-25 mcg powder for inhalation INHALE 1 PUFF BY MOUTH EVERY DAY active Not Available Not Available No t Available Vitals Date Recorded Body temperature Respiratory rate Body weight Body height Heart rate Oxygen saturation Oxygen saturation in Arterial blood by Pulse oximetry Oxygen saturation Oxygen saturation in Arterial blood by Pulse oximetry Heart rate Systolic And Diastolic Systolic And Diastolic Provider Name and Address Organization Details Last Updated DateTime 5 98.3 [degF] 20 /min 11079.6 8 g 160.02 cm 78 /min 92 % 92 % 100 % 100 % 71 /min 128/51 mm[Hg] 128/66 mm[Hg] Not Available [facility] 5 12:07:20 Date Recorded Oxygen saturation Oxygen saturation in Arterial blood by Pulse oximetry Inhaled oxygen flow rate Body weight Body temperature Heart rate Body height Respiratory rate Systolic And Diastolic Provider Name and Address Organization Details Last Updated DateTime 5 95 % 95 % 2 L/min 42373.3 12 g 98.2 [degF] 65 /min 165.1 cm 20 /min 138/54 mm[Hg] Not Available [facility] - production 13:15:05 Social History None recorded. Functional Status None recorded. Mental Status None recorded. Family History Nothing Reported. Medical History No medical history recorded. Gynecological HistoryNo gynecological history recorded. Obstetrics History GPAL:G 0 P 0 0 0 0 Past Encounters Encounter ID Performer Location Encounter Start Date Encounter Closed Date Diagnosis/Indication Diagnosis SNOMED-CT Code Diagnosis ICD10 Code Diagnosis IMO Codes Diagnosis Note [id number] ANGEL DUCKWORTH MD [facility] [address] [place] [phone] 11/28/2024 10:28:59 11/28/2024 14:17:23 Acute exacerbation of chronic obstructive pulmonary disease 646918065 J44.1 [id number] Carmen Frazier MD [facility] [address] [place] [phone] 01/26/2025 13:14:59 01/26/2025 14:58:46 Acute urinary tract infection 118438767 N39.0 [id number] nl renal function 11/28/24- will add pyridium for 3 d to help w/ dysuria/ stay well hydrated/ avoid caffeineco nt Tylenol 500 mg 4-5x per day(2500 mg / 24 hrs max dose) watch for increased bleeding recheck at once-while neither Pyridium or cefpodoxim e interacts per se with Eliquis any of the antibiotic s can increase the risk of bleeding so any stigmata of excessive bleeding like nosebleeds excessive bruising vish hematuria or black or bloody stools requires emergent evaluation . The medic reports they verbalized understand ing of what to watch for Health Concerns Section Related Observation LastModified by Organization Detai ls LastModified Time None Recorded Concern Status LastModified by Organization Details LastModified Time None Recorded Advance Directives Directive None Recorded Payers Insurance Date Sequence Insurance Name Policy Number Policy Urena Covered Member ID Urena Member ID Guarantor Name 01/26/2025 1 [facility] - DOS ON OR AFTER 2022 - DUAL ELIGIBLE - LONG TERM OPTIONS AND ONE CARE (MEDICARE REPLACEMENT/ADV ANTAGE - HMO) Tanya Joya [id number] Tanya Joya Notes Date Note Type Note Provider Name and Address Organization Details Recorded Time 11/28/2024 text/html ROS as noted in the [facility] Nurse Triage Notes (Karen Whipple - RN): Reason For Request: Patient not moving quickly, she's coughing up mucus. Has a chunky cough. Not walking well. Gets winded walking to the bathroom. Patient Reports: Cough, fever greater than 2 days ; Lower extremity swelling; COPD; Sputum increase ; Cough; Shortness of breath with exertionDenies: Increased work of breathing/labored with or without fever Unable to speak in full sentences without distress Discoloration of skin -cyanosis Needs to sleep sitting up, can t catch breath Shortness of breath in setting of confusion History of asthma, increased use of inhaler Chief Complaints: Cough, WeaknessPMH: Chronic Obstructive Pulmonary Disease (COPD), Congestive Heart Failure, Arrhythmias (e.g., Atrial Fibrillation)PMH Reviewed at 11/28/2024:12Allergies Reviewed at 11/28/2024:12Comments: 84 y.o female complains of Cough, Weakness Daughter calling cough with congestion for 2 days and increased weakness. She has clear , thick mucus. She does have chills, no fevers, nausea, vomiting. She does have body aches. She does have sob, does have COPD, she wears 2LNC. she does have inhalers and nebs that she has been using, it has been helping but she is very weak from the symptoms. 'She has sob when she is ambulating but able to talk in full sentences. She does have wheeze and rattle per daughter.She does have afib, take diltiazem and digoxin. She is on lasix for CHF .I provided information on the mobile health provider response time and advised the patient and/or caregiver to monitor reported signs and symptoms. I discussed the warning signs of when to seek emergency care. [employer] Polisher Operator Organization Information for Luis Hernandez Legal Name: [employer]. Address: [address] [place] [id number], Key Bed Installer: Artemio Nelson MD CLIA No.: [id number] [employer] POC Test Results from Luis Hernandez EKG (10:46:05) EKG test performed. Attachments uploaded as part of this test result can be found under Documents section. Rapid COVID antigen (:46:08) COVID: - Attachments uploaded as part of this test result can be found under Documents section. Rapid influenza antigen (:46:) Flu: - iSTAT Chem8+ (11:42:08) Na: 140 mEq/L K: 4.6 mEq/L Cl: 98 mEq/L iCa: 1.17 mmol/L TCO2: 34 mmol/L Glu: 84 mg/dL BUN: 11 mg/dL Crea: 0.7 mg/dL Hct: 28 % Hb: 9.5 g/dL A mmol/L Cartridge Number: [id number] Attachments uploaded as part of this test result can be found under Documents section. CRC Nurse Triage Notes (Karen Whipple - RN): Reason For Request: Patient not moving quickly, she's coughing up mucus. Has a chunky cough. Not walking well. Gets winded walking to the bathroom. Patient Reports: Cough, fever greater than 2 days ; Lower extremity swelling; COPD; Sputum increase ; Cough; Shortness of breath with exertionDenies: Increased work of breathing/labored with or without fever Unable to speak in full sentences without distress Discoloration of skin -cyanosis Needs to sleep sitting up, can t catch breath Shortness of breath in setting of confusion History of asthma, increased use of inhaler Chief Complaints: Cough, WeaknessPMH: Chronic Obstructive Pulmonary Disease (COPD), Congestive Heart Failure, Arrhythmias (e.g., Atrial Fibrillation)PMH Reviewed at 11/28/2024:12Allergies Reviewed at 11/28/2024:12Comments: 84 y.o female complains of Cough, Weakness Daughter calling cough with congestion for 2 days and increased weakness. She has clear , thick mucus. She does have chills, no fevers, nausea, vomiting. She does have body aches. She does have sob, does have COPD, she wears 2LNC. she does have inhalers and nebs that she has been using, it has been helping but she is very weak from the symptoms. 'She has sob when she is ambulating but able to talk in full sentences. She does have wheeze and rattle per daughter.She does have afib, take diltiazem and digoxin. She is on lasix for CHF .I provided information on the mobile health provider response time and advised the patient and/or caregiver to monitor reported signs and symptoms. I discussed the warning signs of when to seek emergency care. [employer] Pol[employer] Operator Organization Information for Luis Hernandez Legal Name: [employer]. Address: [address] [place] [address], Key Bed Installer: Artemio Nelson MD BECKIE No.: [id number] [employer] Operator POC Test Results from Luis Hernandez EKG (10:46:05) EKG test performed. Attachments uploaded as part of this test result can be found under Documents section. Rapid COVID antigen (10:46:08) COVID: - Attachments uploaded as part of this test result can be found under Documents section. Rapid influenza antigen (10:46:09) Flu: - ..................... ..................... ..................... ..................... ..................... ..................... ............... [employer] Polisher Operator Note From Luis Hernandez: ROSELINE makes pt contact. She is found seated in a recliner in her bedroom. She turns her head to make eye contact w/ MIH. She is wearing a NC, her face is pale, she is pursed-lip breathing w/ obvious accessory muscle usage, and she appears to be tired. No perioral cyanosis is noted, and she is able to answer questions in full and complete sentences. Her skin is warm and dry, she is not tripoding, no facial droop or one-sided weakness are observed, and she is not bleeding anywhere. Pt tells ROSELINE she has had a productive cough and felt more sob for about two days. She denies fevers but has had some chills. She has not felt like she needed to increase her baseline O2 requirement, but she has been using her nebulizer QID. She says the treatments help for a short time. She has been sleeping in her chair due to the cough. Pt endorses thick/white sputum and an inability to make it to the bathroom w/o feeling very sob. Pt does not report sick contacts, sore throat, or bladder/bowel issues and she has been eating and drinking normally. She denies cp and n/v/d, but has seen an increase of about 5 pounds in her weight and more edema in her feet and ankles over the past week. [facility] obtains baseline vitals and pt is assessed. Head is atraumatic and normocephalic. Sclera are clear, pupils are PERRL, and extraocular movements are intact. Supraclavicular retractions are noted, no JVD is observed, and trachea is midline. Chest rises and falls w/ accessory muscle usage w/ each respiration. Lung sounds are decreased in all lopez w/ rales and expiratory wheezes in the bases. Abdomen is distended at baseline and tender distal to the umbilicus w/ palpable hernia noted. Bilateral 3+ pitting edema in feet and ankles, CMS is intact. A 12- lead EKG is obtained and shows atrial fibrillation w/ no acute ST or T wave abnormalities. Pt is swabbed for COVID/flu and found to be negative. [facility] contacts [facility] and discusses the above. [facility] orders IV access for bmp, 40mg IV furosemide, and 2G magnesium sulfate, as well as 60mg prednisone PO. A 20ga IV is attempted in the R AC and is unsuccessful. A 22ga IV is attempted in the L wrist and is again unsuccessful. A second 20ga IV is attempted in the L AC and is also unsuccessful. IV access is obtained in the L wrist and blood is drawn for BMP. IV is flushed and locked w/ a saline lock and secured. 1G mag sulfate is diluted in a 10ml NS flush and administered SIVP over 5 min. Pt becomes very flushed. 40mg furosemide is administered SIVP over 5 min and pt tolerates well. Pt is given 1 duoneb via nebulizer pipe at 8 lpm O2. Lung sounds are reassessed and are present in all lopez. Expiratory wheezes and rales are decreased in the bases, but still present. [facility] contacts [facility] [place] request a second albuterol treatment. [facility] [place]. [facility] also discusses pt's reaction to 1g mag and [facility] has [facility] hold on second G. Pt is administered 20mg x3 tablets of prednisone PO. After breathing treatments, pt's RR drops, she has no more pursed-lip breathing and color returns to her face and light in her eyes. She smiles more easily and becomes very chatty. She is so happy w/ [facility] visit and treatment. [facility] informs pt and her daughter of s/s requiring emergency care and they give their verbal understanding. [facility] is clear. Report completed by LUIS ALBERTO Hernandez [id number]. [facility] Orders: rapid SARS CoV 2 Ag, QL IA, respiratory specimen: Performed rapid flu (A+B): Performed BMP, serum or plasma: Performed [facility] Medication Orders: ipratropium 0.5 mg-albuterol 3 mg (2.5 mg base)/3 mL nebulization soln: Administered magnesium sulfate 2 gram/100 mL in 0.9 % sodium chl intraven piggyback: Administered Comment: Administered 1G furosemide 10 mg/mL injection solution: Administered prednisone 20 mg tablet: Administered ..................... ..................... ..................... ..................... ..................... ..................... ............... [facility] Consulted: Angel Duckworth ..Wilbur.................. ..................... ..................... ..................... ..................... ..................... ............... Disposition: Bull ANGEL DUCKWORTH MD [address] [place] [address],[address], [place], [id number], [place] 11/28/2024 15:33:08 01/26/2025 text/html ROS as noted in the [facility] Nurse Triage Notes (Karen Whipple - APRIL): Reason For Request: Possible UTI. Patient Reports: Painful urination; Frequent and increased urination with flank pain; Painful urination with or without fever; Inability to fully empty bladder Denies: Unable to void greater than 5 hours Erection that will not go away after 2 hours Fall or trauma that results in urinary incontinence in the setting of pain Fall or injury that results in incontinence in the absence of pain Lower back pain either unilateral or bilateral, unable to void, painful urination -hematuria Chief Complaints: Urinary Symptoms PMH: Chronic Obstructive Pulmonary Disease (COPD), Congestive Heart Failure, Arrhythmias (e.g., Atrial Fibrillation) PMH Reviewed at 01/26/2025:48 Allergies Reviewed at 01/26/2025:48 Pain Assessment: Level 8 out of 10 Comments: 84 y.o female complains of Urinary Symptoms Pt is reporting UTI symptoms that has been present for a few weeks. She has urgency , frequency , and color change. She reported burning when she voids and strong odor. She reported right flank pain, 8/10, pain,,no fever or chills. She has not had any falls, She has used bengay on her back with no changes She has CHF, she takes lasix . She also has afib,she takes eliquis I provided information on the mobile health provider response time and advised the patient and/or caregiver to monitor reported signs and symptoms. I discussed the warning signs of when to seek emergency care. [employer] Organization Information for LeeKorilarissa FLORENTINO Business Legal Name: [facility] [employer] Address: [address] [place] [address] [place] [address], Key Bed Installer: Sundeep Lizarraga MD CLIA No.: [id number] [employer] POC Test Results from Kori Howardlarissa Merrick FLORENTINO Urine Dipstick (12:50:49) Urine leukocytes: 3+ALDAIR Urine nitrites: -NIT Urine urobilinogen: 0.2URO Urine protein: 100PRO Urine pH: 5.0pH Urine blood: 3+BLO Urine specific gravity: 1.03SG Urine ketones: -KET Urine bilirubin: +SANDY Urine glucose: -GLU Attachments uploaded as part of this test result can be found under Documents section. ..................... ..................... ..................... ..................... ..................... ..................... ............... [employer] Note From Isha Howard: Pt chief complaint today of right sided flank and abdominal pain as well as increased frequency of urination as well as pain on urination, pt states that all signs and symptoms have been occurring for the past x1 week with her pain becoming significantly more intense in last 48 hours. Pt also notes a discoloration of her urine however no foul odor. Pt has been using Tylenol 500 mg to assist with pain. Pt state that pain has been minimally effected. Pt today would appreciate a general assessment as well as treatment if possible. Pt denies any cp, sob, NVD, dizziness or blurred vision. Pt and daughter states nkda. Nonneural focal exam, pt is able to ambulate appropriately within her baseline without use of a walker and or person. Afebrile, vitals are fully WNL for the pt lungs present as clear bilaterally on auscultation. Pt admits to lower right quadrant flank pain that is consistently at an 8/10. No distention or rigidity noted. No signs of trauma to the area either. Pt states that pain increases upon movement and palpation. No new or worsening lower extremity edema noted. Pt has positive csm in all extremities. POC urine test provided with notes or leukocytes and blood in urine. Culture acquired. [facility] Carmen Frazier consulted. Pt is informed of findings with her daughter called in via phone for confirmation. Pt is given 200 mg of oral cefpodoxime via [facility] provider today. Prescription sent to pharmacy of pt and family choice. Pt and family are educated on red flag S&S and told to contact emergency services if any present. [facility] Lab Orders: urinalysis, dipstick: Performed culture, urine: Performed [facility] Medication Orders: cefpodoxime 200 mg tablet: Performed ..................... ..................... ..................... ..................... ..................... ..................... ............... [facility] Consulted: Carmen Frazier ..................... ..................... ..................... ..................... ..................... ..................... ............... Disposition: Fulfilled Carmen Frazier MD [address] [facility],[address], [place], [address], [employer]ocality - [employer] 01/27/2025 02:23:41 OBGyn Episode No OBEpisode recorded.
== END 2025-04-26 12:48 | disposition home or self-care (01) ==
LOC: HO.LAB 12:47
PROVIDERS: PCP Internal Medicine; Visit Provider Internal Medicine Gastroenterology
DX: D50.9 Iron deficiency anemia, unspecified (principal)
CPT/HCPCS: 36415; 82728; 85027